=== PATIENT | female | born 1970 | race Caucasian/White ===

== ENCOUNTER 2020-02-08 17:45 | Emergency (ER) | payer OTHER, SELFPAY ==
[2020-02-08 17:56] VITALS: BP 152/81; PULSE 77; RESP 16; TEMP 37; O2SAT 99
--- NOTE | 2020-02-08 18:23 | ED.GENADULT ---
HPI - General Adult General Chief complaint: Upper Respiratory Infection Stated complaint: sore throat/cough/sinus/difficulty breathing/fever Time Seen by Provider: 02/08/20 18:23 Source: patient and RN notes reviewed Mode of arrival: ambulatory Limitations: no limitations History of Present Illness HPI narrative: 49-year-old female presents with complains of upper respiratory infection symptoms, fever, fatigue, sore throat, and dry cough for the past 2 days. Ibuprofen (800 mg last this morning at 9 AM) and cough drops without relief. History of asthma. Constant dry cough. Rhinorrhea and nasal congestion. Sore throat bilateral. Hurts to swallow. No voice change. High fevers, highest 102.1 Fahrenheit, orally with intermittent chills and sweats. No drooling, neck or throat swelling. No chest pain, wheezing, or shortness of breath. Exacerbation factors consist of smoke exposure. Denies nausea, vomiting, and abdominal pain. Tolerating liquids well. Madhavi denies being , postmenopausal for 2 years. Some parts of this dictation were generated by voice recognition software and may contain typographical and/or grammatical inaccuracies. Related Data Home Medications Medication Instructions Recorded Confirmed gabapentin 300 mg PO DAILY 12/13/19 12/13/19 insulin glargine [Basaglar KwikPen unit SUBCUT 12/13/19 U-100 Insulin] losartan 50 mg PO DAILY 12/13/19 12/13/19 metformin 1,000 mg PO BID 12/13/19 12/13/19 pen needle, diabetic [BD 12/13/19 12/13/19 Ultra-Fine Evelyn Pen Needle] tizanidine 4 mg PO DAILY 12/13/19 12/13/19 Allergies Allergy/AdvReac Type Severity Reaction Status Date / Time No Known Allergies Allergy Unknown Verified 12/23/19 12:00 Review of Systems Review of Systems: Narrative: CONSTITUTIONAL: Complains of fever, chills, sweats. EYES: Denies visual changes, redness, discharge. ENT: Complains of rhinorrhea, congestion, sore throat. Denies otalgia. CARDIOVASCULAR: Denies chest pain, palpitations, edema. RESPIRATORY: Denies dyspnea, wheezing. Complains of dry cough. GASTROINTESTINAL: Denies abdominal pain, nausea, vomiting, diarrhea. GENITOURINARY: Denies dysuria, hematuria, abnormal discharge. SKIN: Denies rash or itching. MUSCULOSKELETAL: Denies acute back pain, joint pain. Complains of myalgia. NEUROLOGIC: Denies numbness or focal weakness. PSYCHIATRIC: Denies anxiety or depression. All systems reviewed & are unremarkable except as noted in HPI and below. FORMERLY [facility] Past Medical History Medical History (Updated 02/09/20 @ 00:01 by Xiomara Taylor) Asthma delivery delivered Diabetes High cholesterol Hypertension Surgical History Surgical History (Updated 02/08/20 @ 18:37 by MARC Richardson) H/O section History of tonsillectomy Family History Family History (Updated 02/08/20 @ 18:38 by MARC Richardson) Mother Heart disease Diabetes mellitus Sibling Diabetes mellitus Social History Social History Gender identity (if verbalized by the patient): Female Comments At time of signature, agree with nurse past medical, surgical, social, and family history. There is no relevant family history pertinent to the presenting complaint. Exam Narrative: Exam Narrative: GENERAL: This is a well-nourished, well-developed patient, in no apparent distress. Talks in full sentences and ambulates with steady gait without dyspnea. HEAD: normocephalic, atraumatic. EYES: PERRL. Sclera clear/white. Vision is grossly intact. EARS: External ears normal, auditory canals clear and without drainage, TMs normal without perforation. Hearing grossly intact. NOSE: External nose normal with no obvious nasal discharge, nares with mild redness and enlarged turbinates, clear rhinorrhea. THROAT: Mucous membranes moist, posterior pharynx clear. PND, mild erythema, no tonsils. No drainage. No drooling, trismus, or
== END 2020-02-08 18:51 | disposition home or self-care (01) ==
PROVIDERS: Emergency Provider Nurse Practitioner Family
DX: J02.9 Acute pharyngitis, unspecified (principal); J45.909 Unspecified asthma, uncomplicated; E11.9 Type 2 diabetes mellitus without complications; E78.00 Pure hypercholesterolemia, unspecified; I10 Essential (primary) hypertension
CPT/HCPCS: 87081; 87880; 99213; G0463

== ENCOUNTER 2020-03-08 16:33 | Emergency (ER) | payer OTHER, SELFPAY ==
[2020-03-08 16:50] VITALS: BP 130/77; PULSE 71; RESP 18; TEMP 37.1; O2SAT 99
--- NOTE | 2020-03-08 17:33 | ED.EAR ---
HPI - Ear Problem General Chief complaint: Ear Stated complaint: ear/jaw pain History of Present Illness HPI Narrative: Patient is a 49-year-old female presents to urgent care via POV for an evaluation of left ear pain that began yesterday. Additionally, she reports intermittent dizziness and clogged ears. No relief with ibuprofen. Nothing improves pain pain worsens with eating and opening and closing mouth. History of ear infections. Patient is unable to provide details about previous ear infections stating, I do not know I just given drops . Pertinent negatives fever, chills, sweats, change in appetite, poor p.o. intake, malaise, headache, rhinorrhea, sinus problems, tinnitus, vertigo, lightheadedness, hearing loss, muffled hearing, ear drainage, nausea, vomiting, sore throat, cough, shortness of breath, lymphadenopathy, chest pain, heart palpitations, and heart murmur. Related Data Home Medications Medication Instructions Recorded Confirmed pen needle, diabetic [BD 12/13/19 12/13/19 Ultra-Fine Evelyn Pen Needle] Unknown Htn Medication 03/08/20 metformin 03/08/20 Allergies Allergy/AdvReac Type Severity Reaction Status Date / Time No Known Allergies Allergy Unknown Verified 12/23/19 12:00 Review of Systems Review of Systems: Narrative: All other systems reviewed and are negative PMFSH Past Medical History Medical History Asthma delivery delivered Diabetes High cholesterol Hypertension Surgical History Surgical History H/O section History of tonsillectomy Family History Family History Mother Heart disease Diabetes mellitus Sibling Diabetes mellitus Social History Social History Gender identity (if verbalized by the patient): Female Comments I have reviewed and agree with the patient's past medical, surgical, social, and family hx as documented by the RN. There is no relevant family history pertinent to the presenting complaint. Exam Narrative: Exam Narrative: GENERAL: Well-appearing, well-nourished, and in no acute distress. HEAD: Normocephalic, atraumatic. No sinus tenderness or facial swelling appreciated. EYES: PERRLA and EOMI. No evidence of erythema, swelling, or drainage. ENT: Bilateral external ears. Left ear canal with moderate erythema and mild swelling. Right ear canal normal. Moderate pain elicited to right ear with pulling pinna and tragus palpation. bilateral TMs are normal.No TM perforation. Nares clear, no rhinorrhea or epistaxis. Bilateral turbinates without erythema/ swelling. Mucous membranes moist and pink. Uvula is midline without erythema and swelling. No evidence of petechial rash, cobblestoning, lesions, ulcers, erythema, swelling, exudates, peritonsillar abscess, tenting, or drooling. Breath odor and voice normal. NECK: Supple. No Lymphadenopathy or nuchal rigidity appreciated. CHEST: Bilateral lung myers are clear to auscultation. No respiratory distress. No evidence of cough or pleuritic cp upon examination. HEART: Regular rate and rhythm. No murmur, gallop, or rub heard. EXTREMITIES: Normal range of motion. No edema. SKIN: Warm, dry, no rash. NEURO: No focal deficits. Alert and oriented x3. Course Vital Signs Vital signs: Vital Signs Temperature 98.8 F 03/08/20 16:50 Pulse Rate 71 03/08/20 16:50 Respiratory Rate 18 03/08/20 16:50 Blood Pressure 130/77 03/08/20 16:50 Pulse Oximetry 99 03/08/20 16:50 Temperature 98.8 F 03/08/20 16:50 Pulse Rate 71 03/08/20 16:50 Respiratory Rate 18 03/08/20 16:50 Blood Pressure 130/77 03/08/20 16:50 Pulse Oximetry 99 03/08/20 16:50 Medical Decision Making Differential Diagnosis Differential Diagnosis: Allergic rhi
== END 2020-03-08 17:50 | disposition home or self-care (01) ==
PROVIDERS: Emergency Provider Nurse Practitioner Family
DX: H60.502 Unspecified acute noninfective otitis externa, left ear (principal); J45.909 Unspecified asthma, uncomplicated; E11.9 Type 2 diabetes mellitus without complications; E78.00 Pure hypercholesterolemia, unspecified; I10 Essential (primary) hypertension
CPT/HCPCS: 99213; G0463

== ENCOUNTER 2020-03-13 19:54 | Emergency (ER) | payer OTHER, SELFPAY ==
--- NOTE | ~2020-03-13 | CT_ITS ---
EXAMINATION: CT brain wo con EXAM DATE: 03/13/2020 22:13 INDICATION: Headaches. TECHNIQUE: Spiral CT of the head was performed without contrast. Axial, coronal and sagittal images were reviewed. The dose-length product (DLP) for this examination was 605.33 mGy-cm. The exposure w as tailored according to patient size, and iterative reconstruction (ASIR) was used as additional dos e reduction technique. There is no prior study for comparison. FINDINGS: There is no acute intraparenchymal hemorrhage. No evidence of intraparenchymal brain mass lesion. No evidence of acute infarction. There is no mass effect or midline shift. The ventricles are normal in size. There are no extra-axial collections. There are no acute calvarial fractures. T he orbits are unremarkable. Soft tissue is unremarkable. The visualized sinuses and mastoid air lew ls are well aerated. IMPRESSION: 1. No acute intracranial findings. Reviewed, dictated and finalized at location A.
--- NOTE | ~2020-03-13 | XR_ITS ---
EXAMINATION: XR chest 1V portable EXAM DATE: 03/13/2020 20:40 INDICATION: Cough, fever, headache, body ache. TECHNIQUE: Portable AP frontal chest x-ray was obtained. Comparison is made to prior examination from 02/22/2019. FINDINGS: The lungs are clear. There are no pleural effusions. Cardiomediastinal silhouette is norm al. There is no pneumothorax suspected. The bones and soft tissues are unremarkable. IMPRESSION: No acute cardiopulmonary findings. Reviewed, dictated and finalized at location A.
[2020-03-13 20:01] VITALS: PULSE 68; RESP 20; TEMP 37.1; O2SAT 100
--- NOTE | 2020-03-13 20:19 | ECG_ITS ---
Measurements Intervals [place] Rate: 60 P: 10 SD: 157 QRS: -17 QRSD: 89 T: 0 QT: 397 QTc: 399 Interpretive Statements SINUS RHYTHM CONSIDER ANTEROSEPTAL INFARCT, AGE INDETERMINATE INFERIOR INFARCT, AGE INDETERMINATE ABNORMAL ECG Electronically Signed On 03-14-2020 7:14:45 CDT by Satya Mccrary D.O.
[2020-03-13] MEDS: SODIUM CHLORIDE 0.9% IV 1,000 ML 999 ML IV CONT ×2 (20:29→21:46)
[2020-03-13] MEDS: METOCLOPRAMIDE HCL INJ 10 MG/2 ML VIAL IV PUSH (20:30)
[2020-03-13 20:31] LABS: Basophils Percent Auto 0.7 % (0.2-1.2); Eosinophils Absolute Auto 0.1 K/mm3 (0-0.3); Eosinophils Percent Auto 1.9 % (0-4.4); Hematocrit 46.2 % (37.0-47.0); Hemoglobin 15.6 g/dL (12.0-15.0); Immature Granulocyte Absolute 0.02 K/mm3 (0.00-0.031); Immature Granulocyte Percent A 0.4 % (0-0.5); Lymphocytes Absolute Auto 2.45 K/mm3 (0.9-3.2); Lymphocytes Percent Auto 42.9 % (18.3-44.2); Mean Corpuscular HGB Conc 33.8 g/dl (32-36); Mean Corpuscular Hemoglobin 29.7 pg (26-34); Mean Platelet Volume 11.4 fl (7.4-10.4); Monocytes Absolute Auto 0.5 K/mm3 (0.1-0.6); Monocytes Percent Auto 8.6 % (2.6-8.5); Neutrophils Absolute Auto 2.6 K/mm3 (1.3-6.7); Neutrophils Percent Auto 45.5 % (45.5-73.1); Platelet Count Result 209 k/mm3 (150-375); Red Blood Count 5.25 M/mm3 (4.2-5.4); Red Cell Distribution Width 12.5 % (11.5-14.5); White Blood Count 5.7 K/mm3 (4.5-10.0)
[2020-03-13 20:36] LABS: Add Urine Microscopic? YES; Appearance Urine Clear (Clear); Bilirubin Urine Negative (Negative); Blood Urine Negative (Negative); Color Urine Straw (Yellow); Glucose Urine UA 3+ mg/dL (Negative); Ketones Urine Negative (Negative); Leukocyte Esterase Ur Negative LEU/UL (Negative); Mucus Urine Rare /lpf; Nitrate Urine Negative (Negative); Protein Urine Negative (Negative); Squamous Epithelial Cell Urine Occasional /hpf (Few); Urobilinogen Urine Negative mg/dL (<2.0); WBC Urine 0-3 /hpf
[2020-03-13 20:37] LABS: Specific Grav Ur 1.037 (1.001-1.035)
--- NOTE | 2020-03-13 20:42 | ED.GENADULT ---
HPI - General Adult General Chief complaint: Ear Stated complaint: fever,mccarty,cough,n/v,body aches Time Seen by Provider: 03/13/20 19:59 Source: patient Mode of arrival: ambulatory Limitations: no limitations History of Present Illness HPI narrative: 49 yo female with h/o migraine, hypertension, DM who presents with multiple complaints. PAtient reports she has had bilateral frontal headache for 1 week. She thinks it is due to left ear infection that she has been using prescribed antibiotic ear drops to treat. She also reports sore throat, congestion, productive cough with clear phlegm for past couple days. She states she had fever yesterday of 101 but she denies fever today. She reports nausea and vomiting yesterday. She denies vomiting or diarrhea today. She also reports chronic lower back pain. She denies contact with any one with covid or flu. . Onset (ago): week(s) Location: head and back Associated symptoms: chest pain, cough, fever/chills, headaches and nausea/vomiting Treatments prior to arrival: NSAID Related Data Home Medications Medication Instructions Recorded Confirmed pen needle, diabetic [BD 12/13/19 12/13/19 Ultra-Fine Evelyn Pen Needle] Unknown Htn Medication 03/08/20 metformin 1,000 mg PO BID 03/08/20 amitriptyline 25 mg PO DAILY 03/13/20 Allergies Allergy/AdvReac Type Severity Reaction Status Date / Time No Known Allergies Allergy Unknown Verified 03/13/20 20:12 Review of Systems Review of Systems: All systems reviewed & are unremarkable except as noted in HPI and below Constitutional: Constitutional: Reports chills and Reports fever(s) ENT: Reports otalgia, Reports headache(s), Reports nasal congestion and Reports sore throat Cardiovascular: Cardiovascular: Reports chest pain and Denies radiating jaw, neck or arm pain Respiratory: Respiratory: Reports cough, Denies dyspnea and Denies wheezing Gastrointestinal: Gastrointestinal: Reports diarrhea, Reports nausea and Reports vomiting Genitourinary: Genitourinary: Denies nocturia, Denies dysuria and Denies flank pain Musculoskeletal: Musculoskeletal: Reports back pain Neurologic: Denies focal weakness PMF Past Medical History Medical History Asthma delivery delivered Diabetes High cholesterol Hypertension Surgical History Surgical History H/O section History of tonsillectomy Social History Social History Gender identity (if verbalized by the patient): Female Exam Const: General: no acute distress and alert Orientation/consciousness: patient oriented x3 HENMT: Head: normocephalic and atraumatic Ears: TM's normal bilaterally and external ear abnormal (no canal swelling or redness) pain with movement of external ear on the left General nose exam: Normal external nose present, Normal nares present and No nasal polyps present Face and sinus: normal facial exam, sinuses nontender and face symmetric Mouth: Yes Normal oral and palatal mucosa present, Yes lip normal, Yes tongue normal, Yes oropharynx normal and Yes moist mucous membranes Teeth and gingiva: dentition normal and gingiva normal Throat: posterior oropharynx normal, tonsils normal and uvula midline Eyes: Conjunctivae: conjunctivae normal Pupils: Equal, round and reactive pupils present EOM: EOMs intact bilaterally Neck: Neck: normal visual inspection Chest: Chest palpation & inspection: normal inspection of the chest Resp: Effort & Inspection: normal respiratory effort Auscultation: clear to auscultation bilaterally Cardio: Rate: regular rate Rhythm: regular rhythm Heart sounds: no murmurs GI: GI Palp: Yes Soft to palpation, No Tenderness to palpation present (GI), No Guarding due to palpation present (GI) and No Rigid due to palpation : General: Yes no
[2020-03-13 20:43] LABS: Alanine Aminotransferase 17 U/L (4-35); Albumin Level 4.3 g/dL (3.5-5.1); Alkaline Phosphatase 81 U/L (38-126); Aspartate Amino Transferase 20 U/L (14-36); Bilirubin,Total 0.3 mg/dL (0.2-1.3); Blood Urea Nitrogen 10 mg/dL (7-17); Calcium 9.7 mg/dL (8.4-10.2); Carbon Dioxide 28 mmol/L (22-30); Chloride 97 mmol/L (98-107); Estimated CRCL calculation 100 ml/min; Estimated Glomerular Filt Rate > 60; Glucose 372 mg/dL (65-105); Potassium 3.4 mmol/L (3.4-5.0); Sodium 133 mmol/L (137-145)
[2020-03-13 20:46] LABS: CRP 0.6 mg/dL (<1.0); Lipase 85 U/L (23-300)
[2020-03-13 20:55] LABS: Troponin I < 0.012 ng/mL (0.000-0.034)
[2020-03-13 21:00] VITALS: BP 147/89; PULSE 60; RESP 18; O2SAT 100
[2020-03-13] MEDS: KETOROLAC 30 MG/ML VIAL (*BKC) IV PUSH (21:47)
[2020-03-13 22:20] VITALS: BP 126/74; PULSE 63; RESP 21; O2SAT 100
[2020-03-13 23:16] VITALS: BP 118/73; PULSE 65; RESP 16; O2SAT 100
== END 2020-03-13 23:18 | disposition home or self-care (01) ==
PROVIDERS: Emergency Provider General Practice
DX: B34.9 Viral infection, unspecified (principal); G43.909 Migraine, unspecified, not intractable, without status migrainosus; J45.909 Unspecified asthma, uncomplicated; E11.9 Type 2 diabetes mellitus without complications; I10 Essential (primary) hypertension; E78.00 Pure hypercholesterolemia, unspecified; Z79.84 Long term (current) use of oral hypoglycemic drugs
CPT/HCPCS: 36415; 70450; 71045; 80053; 81001; 83690; 84484; 85025; 86140; 87081; 87804; 87880; 93005; 96361; 96374; 96375; 99284; J1200; J1885; J2765; J7030

== ENCOUNTER 2020-06-16 17:33 | Emergency (ER) | payer OTHER, SELFPAY ==
[2020-06-16 17:43] VITALS: BP 144/89; PULSE 81; RESP 16; TEMP 36.8; O2SAT 98
--- NOTE | 2020-06-16 17:57 | ED.URI ---
HPI - URI/Sore Throat General Chief Complaint: Upper Respiratory Infection Stated Complaint: Sinus Infection/sore throat Time Seen by Provider: 06/16/20 17:57 Source: patient and RN notes reviewed Mode of arrival: ambulatory Limitations: no limitations History of Present Illness HPI Narrative: This is a 50 years old female presents to the office for an evaluation of sinus congestion since yesterday. Associated with bilateral ear clogged, sore throat, neck pain, and cough. Denies fever however she felt chills and hot at times. She also reported feeling nauseated and no appetite. She took Tylenol for her headache but nothing for her sinus. She woke at [facility]; someone tested positive for COVID; therefore she got swab for it yesterday. She calls off work today because she was not feeling well. She does not smoke. Related Data Home Medications Medication Instructions Recorded Confirmed pen needle, diabetic [BD 12/13/19 12/13/19 Ultra-Fine Evelyn Pen Needle] Unknown Htn Medication 03/08/20 metformin 1,000 mg PO BID 03/08/20 amitriptyline 25 mg PO DAILY 03/13/20 apixaban [Eliquis] mg 06/16/20 cetirizine mg 06/16/20 duloxetine mg PO 06/16/20 ertugliflozin [Steglatro] mg 06/16/20 ezetimibe mg 06/16/20 gabapentin 06/16/20 losartan 06/16/20 metformin mg 06/16/20 metoclopramide HCl 06/16/20 omeprazole 06/16/20 tizanidine mg 06/16/20 Allergies Allergy/AdvReac Type Severity Reaction Status Date / Time No Known Allergies Allergy Unknown Verified 03/13/20 20:12 Review of Systems Review of Systems: Narrative: CONSTITUTIONAL: Denies fever. Reports chills and feeling hot. Reports feeling malaise/tired EYES: Denies visual changes, redness, discharge. ENT: Reports sinus congestion, sore throat, ears clogged CARDIOVASCULAR: Denies chest pain, palpitation RESPIRATORY: Denies dyspnea, wheezing. Reports a little cough GASTROINTESTINAL: Denies abdominal pain, diarrhea. Reports nausea with no appetite. GENITOURINARY: Denies urinary symptoms SKIN: Denies rash MUSCULOSKELETAL: Denies acute back pain. NEUROLOGIC: Denies lightheaded All other systems reviewed are negative, except as documented in HPI. FORMERLY [facility] Past Medical History Medical History Asthma delivery delivered Diabetes High cholesterol Hx of deep venous thrombosis Hypertension Surgical History Surgical History H/O section History of tonsillectomy Family History Family History Mother Heart disease Diabetes mellitus Sibling Diabetes mellitus Social History Social History Gender identity (if verbalized by the patient): Female Comments At time of signature, I agree with nursing past medical, surgical, social and family history. There is no relevant family history pertinent to the presenting complaint. Exam Narrative: Exam Narrative: GENERAL: This is a well-nourished, well-developed patient, in no apparent distress. EYES: Sclera clear/white. Vision is grossly intact. EARS: External ears normal, auditory canals clear and without drainage, TMs normal without perforation, fluid level noted. Hearing grossly intact. NOSE: External nose normal with no obvious nasal discharge, nares without redness, no rhinorrhea. THROAT: Mucous membranes moist, posterior pharynx clear. NECK: Neck supple, non-tender without lymphadenopathy, masses or thyromegaly. CARDIOVASCULAR: Regular rate and rhythm without murmurs, gallops, or rubs. RESPIRATORY: Clear to auscultation. Breath sounds equal bilaterally. No wheezes, rales, or rhonchi. GASTROINTESTINAL: Abdomen soft, non-tender, nondistended. Bowel sounds are active. No hepato-splenomegaly, or palpable masses. No guarding. SKIN: warm, intact with no suspicious lesions or
== END 2020-06-16 18:17 | disposition home or self-care (01) ==
PROVIDERS: Emergency Provider Nurse Practitioner
DX: J06.9 Acute upper respiratory infection, unspecified (principal); R05 Cough; J45.909 Unspecified asthma, uncomplicated; E11.9 Type 2 diabetes mellitus without complications; E78.00 Pure hypercholesterolemia, unspecified; Z86.73 Personal history of transient ischemic attack (TIA), and cerebral infarction without residual deficits; I10 Essential (primary) hypertension
CPT/HCPCS: 99213; G0463

== ENCOUNTER 2020-07-22 18:18 | Emergency (ER) | payer OTHER, SELFPAY ==
--- NOTE | ~2020-07-22 | CT_ITS ---
EXAMINATION: CT abdomen pelvis w con DATE: 07/22/2020 19:46 INDICATION: Abdominal pain, nausea and diarrhea TECHNIQUE: Computed tomography (CT) of the abdomen and pelvis was performed with 100 mL Omnipaque-350 intravenous contrast. Automated exposure control and iterative reconstruction technique were employe d. The dose-length product was 617.11 mGy-cm. COMPARISON: None FINDINGS: Lung bases are clear. Heart size is normal. No pericardial or pleural effusion. Focal hepatic steatos is at the ligamentum teres. Gallbladder, spleen, pancreas, bilateral adrenal glands and kidneys are n ormal. Bowels including the appendix are normal. Bladder, anteverted uterus and bilateral adnexa are normal. No free intraperitoneal gas or fluid. No pathologically enlarged abdominal or pelvic lymphade nopathy. Bones are unremarkable. IMPRESSION: 1. No acute intra-abdominal/pelvic process. Reviewed, dictated and finalized at location A.
--- NOTE | ~2020-07-22 | XR_ITS ---
EXAMINATION: XR chest 1V DATE: 07/22/2020 19:49 INDICATION: Right-sided chest pain radiating down the right arm TECHNIQUE: PA view of the chest was obtained. COMPARISON: Chest radiograph dated 03/13/2020 FINDINGS: Lung volumes remain small with no focal airspace opacities, pulmonary edema, pleural effusion or pneu mothorax. The cardiomediastinal silhouette is normal. Excreted contrast at the bilateral renal collec ting systems resulting from the immediately prior contrast enhanced CT of the abdomen and pelvis. IMPRESSION: 1. No acute cardiopulmonary disease. Reviewed, dictated and finalized at location A.
--- NOTE | 2020-07-22 18:24 | ECG_ITS ---
Measurements Intervals [place] Rate: 87 P: 18 NC: 166 QRS: 0 QRSD: 85 T: 10 QT: 358 QTc: 431 Interpretive Statements SINUS RHYTHM ANTERIOR INFARCT, AGE INDETERMINATE ABNORMAL ECG Electronically Signed On 07-23-2020 6:59:02 CDT by Satya Mccrary D.O.
[2020-07-22 18:30] VITALS: BP 177/93; PULSE 92; RESP 16; TEMP 37.1; O2SAT 98
[2020-07-22 18:43] LABS: Basophils Absolute Auto 0.1 K/mm3 (0.0-0.1); Basophils Percent Auto 0.8 % (0.2-1.2); Eosinophils Absolute Auto 0.1 K/mm3 (0-0.3); Eosinophils Percent Auto 2.3 % (0-4.4); Hematocrit 45.6 % (37.0-47.0); Hemoglobin 15.4 g/dL (12.0-15.0); Immature Granulocyte Absolute 0.01 K/mm3 (0.00-0.031); Immature Granulocyte Percent A 0.2 % (0-0.5); Lymphocytes Absolute Auto 2.12 K/mm3 (0.9-3.2); Mean Corpuscular HGB Conc 33.8 g/dl (32-36); Mean Corpuscular Volume 85.9 fl (80-100); Mean Platelet Volume 11.1 fl (7.4-10.4); Monocytes Absolute Auto 0.4 K/mm3 (0.1-0.6); Monocytes Percent Auto 7.1 % (2.6-8.5); Neutrophils Absolute Auto 3.3 K/mm3 (1.3-6.7); Neutrophils Percent Auto 54.6 % (45.5-73.1); Platelet Count Result 209 k/mm3 (150-375); Red Blood Count 5.31 M/mm3 (4.2-5.4); Red Cell Distribution Width 12.3 % (11.5-14.5); White Blood Count 6.1 K/mm3 (4.5-10.0)
[2020-07-22 18:44] LABS: Add Urine Microscopic? YES; Appearance Urine Clear (Clear); Bilirubin Urine Negative (Negative); Blood Urine Negative (Negative); Color Urine Straw (Yellow); Glucose Urine UA 3+ mg/dL (Negative); Ketones Urine Negative (Negative); Leukocyte Esterase Ur Negative LEU/UL (Negative); Mucus Urine Rare /lpf; Nitrate Urine Negative (Negative); Protein Urine Negative (Negative); Squamous Epithelial Cell Urine Rare /hpf (Few); Urobilinogen Urine Negative mg/dL (<2.0)
[2020-07-22 18:51] LABS: Specific Grav Ur 1.035 (1.001-1.035)
[2020-07-22 18:54] LABS: Alanine Aminotransferase 25 U/L (4-35); Alkaline Phosphatase 86 U/L (38-126); Anion Gap 7 mmol/L (8-16); Aspartate Amino Transferase 27 U/L (14-36); Bilirubin,Total 0.4 mg/dL (0.2-1.3); Blood Urea Nitrogen 10 mg/dL (7-17); Carbon Dioxide 26 mmol/L (22-30); Chloride 101 mmol/L (98-107); Estimated CRCL calculation 88 ml/min; Estimated Glomerular Filt Rate > 60; Glucose 440 mg/dL (65-105); Lipase 49 U/L (23-300); Potassium 3.5 mmol/L (3.4-5.0); Sodium 134 mmol/L (137-145)
[2020-07-22 19:02] LABS: D Dimer 0.34 ug/mL (<0.48)
[2020-07-22 19:06] LABS: Troponin I < 0.012 ng/mL (0.000-0.034)
--- NOTE | 2020-07-22 19:12 | ED.GENADULT ---
HPI - General Adult General Chief complaint: Abdominal Pain Stated complaint: abd pain, diarrhea Time Seen by Provider: 07/22/20 18:31 Source: patient History of Present Illness HPI narrative: Patient is a 50 y/o female complaining of cramping right lower abdominal pain for 1 week. She describes her pain as 8/10 with no radiation. She has no vomiting, but some diarrhea. There is no alleviating or exacerbating factor. She also has some sharp right upper chest pain starting today. Related Data Home Medications Medication Instructions Recorded Confirmed pen needle, diabetic [BD 12/13/19 12/13/19 Ultra-Fine Evelyn Pen Needle] Unknown Htn Medication 03/08/20 metformin 1,000 mg PO BID 03/08/20 amitriptyline 25 mg PO DAILY 03/13/20 apixaban [Eliquis] mg 06/16/20 cetirizine mg 06/16/20 duloxetine mg PO 06/16/20 ertugliflozin [Steglatro] mg 06/16/20 ezetimibe mg 06/16/20 gabapentin 06/16/20 losartan 06/16/20 metformin mg 06/16/20 metoclopramide HCl 06/16/20 omeprazole 06/16/20 tizanidine mg 06/16/20 Allergies Allergy/AdvReac Type Severity Reaction Status Date / Time No Known Allergies Allergy Unknown Verified 03/13/20 20:12 Review of Systems Constitutional: Constitutional: Denies chills, Denies fever(s), Denies headache(s) and Denies weakness Eyes: Eyes: Denies blurry vision ENT: Denies headache(s) and Denies neck pain Cardiovascular: Cardiovascular: Reports chest pain and Denies dyspnea Respiratory: Respiratory: Denies cough and Denies dyspnea Gastrointestinal: Gastrointestinal: Reports abdominal pain, Reports diarrhea, Reports nausea and Denies vomiting Genitourinary: Genitourinary: Denies hematuria and Denies dysuria Musculoskeletal: Musculoskeletal: Denies back pain and Denies neck pain Neurologic: Denies headache(s) and Denies weakness PMFSH Past Medical History Medical History Asthma delivery delivered Diabetes High cholesterol Hx of deep venous thrombosis Hypertension Surgical History Surgical History H/O section History of tonsillectomy Family History Family History Mother Heart disease Diabetes mellitus Sibling Diabetes mellitus Social History Social History Gender identity (if verbalized by the patient): Female Exam Const: General: no acute distress and well developed Orientation/consciousness: oriented to person, oriented to place, oriented to time and patient oriented x3 HENMT: Head: normocephalic Ears: external ears normal General nose exam: Normal external nose present Eyes: General: appearance normal, both eyes and all related structures Conjunctivae: conjunctivae normal Neck: Neck: normal visual inspection and full ROM Chest: Chest palpation & inspection: normal inspection of the chest and no tenderness Resp: Effort & Inspection: normal respiratory effort Auscultation: clear to auscultation bilaterally Cardio: Rate: regular rate Rhythm: regular rhythm GI: GI Palp: No abdominal tenderness and Yes Soft to palpation Skin: General skin exam: normal color and turgor normal Neuro: General: oriented to person, oriented to place, oriented to time and patient oriented x3 Cognition (Neuro): normal cognition Extrem: General: normal to inspection, full ROM and no pedal edema Psych: Appearance: grossly normal Mental Status: mental status grossly normal Affect: normal affect Course Vital Signs Vital signs: Vital Signs Temperature 37.1 C 07/22/20 18:30 Pulse Rate 92 07/22/20 18:30 Respiratory Rate 16 07/22/20 18:30 Blood Pressure 177/93 H 07/22/20 18:30 Pulse Oximetry 98 07/22/20 18:30 Temperature 37.1 C 07/22/20 18:30 Pulse Rate 74 07/22/20 21:33 Respiratory Rate 18 07/22/20 21:33 Blo
[2020-07-22 20:41] VITALS: BP 127/68; PULSE 71; RESP 18; O2SAT 100
[2020-07-22] MEDS: INSULIN HUMAN REGULAR (*BKC) 100 UNITS/ML 8 UNITS IV PUSH (20:59)
[2020-07-22 21:33] VITALS: BP 118/82; PULSE 74; RESP 18; O2SAT 98
[2020-07-22 21:45] LABS: Glucose Point of Care 337 (65-105)
[2020-07-22 22:02] LABS: Troponin I < 0.012 ng/mL (0.000-0.034)
[2020-07-22 22:10] VITALS: BP 122/79; PULSE 74; RESP 18; O2SAT 98
== END 2020-07-22 22:12 | disposition home or self-care (01) ==
PROVIDERS: Emergency Medicine; Emergency Provider Emergency Medicine
DX: R10.31 Right lower quadrant pain (principal); R07.9 Chest pain, unspecified; J45.909 Unspecified asthma, uncomplicated; E11.9 Type 2 diabetes mellitus without complications; E78.00 Pure hypercholesterolemia, unspecified; Z86.718 Personal history of other venous thrombosis and embolism; I10 Essential (primary) hypertension; Z79.01 Long term (current) use of anticoagulants; Z79.84 Long term (current) use of oral hypoglycemic drugs; R94.31 Abnormal electrocardiogram [ECG] [EKG]
CPT/HCPCS: 36415; 71045; 74177; 80053; 81001; 81025; 83690; 84484; 85025; 85380; 93005; 96374; 99284; J1815; Q9967

== ENCOUNTER 2020-11-28 17:42 | Emergency (ER) | payer OTHER, SELFPAY ==
--- NOTE | ~2020-11-28 | XR_ITS ---
EXAMINATION: XR chest 1V portable INDICATION: Shortness of breath and cough, COVID 19 positive TECHNIQUE: Portable AP chest at 1821 hours COMPARISON: 07/22/2020 FINDINGS: Diffuse interstitial and airspace opacities are present. There is no pleural effusion or pn eumothorax. The cardiomediastinal silhouette is normal. The visualized osseous structures are unremar kable. IMPRESSION: 1. Diffuse lung disease, consistent with pneumonia and/or pulmonary edema. Reviewed, dictated and finalized at location A. GENCY DEPARTMENT MANAGER
--- NOTE | 2020-11-28 17:46 | ECG_ITS ---
Measurements Intervals [place] Rate: 96 P: 0 SD: 149 QRS: -23 QRSD: 91 T: 7 QT: 351 QTc: 443 Interpretive Statements SINUS RHYTHM ANTEROSEPTAL INFARCT, AGE INDETERMINATE INFERIOR INFARCT, AGE INDETERMINATE BASELINE ARTIFACT- I, II, AVR, AVL ABNORMAL ECG Electronically Signed On 11-29-2020 8:47:01 [employer] by Satya Mccrary D.O.
[2020-11-28 17:50] VITALS: BP 162/109; PULSE 98; RESP 17; TEMP 37.2; O2SAT 99
[2020-11-28 17:54] VITALS: PULSE 98
[2020-11-28 17:58] LABS: Basophils Percent Auto 0.3 % (0.2-1.2); Eosinophils Percent Auto 0.1 % (0-4.4); Hematocrit 45.1 % (37.0-47.0); Hemoglobin 15.5 g/dL (12.0-15.0); Immature Granulocyte Absolute 0.04 K/mm3 (0.00-0.031); Immature Granulocyte Percent A 0.3 % (0-0.5); Lymphocytes Absolute Auto 1.99 K/mm3 (0.9-3.2); Mean Corpuscular HGB Conc 34.4 g/dl (32-36); Mean Corpuscular Hemoglobin 29.9 pg (26-34); Mean Corpuscular Volume 87.1 fl (80-100); Mean Platelet Volume 11.6 fl (7.4-10.4); Monocytes Absolute Auto 0.6 K/mm3 (0.1-0.6); Monocytes Percent Auto 5.4 % (2.6-8.5); Neutrophils Percent Auto 76.9 % (45.5-73.1); Platelet Count Result 188 k/mm3 (150-375); Red Blood Count 5.18 M/mm3 (4.2-5.4); Red Cell Distribution Width 12.2 % (11.5-14.5); White Blood Count 11.7 K/mm3 (4.5-10.0)
[2020-11-28 18:09] LABS: Anion Gap 12 mmol/L (8-16); Blood Urea Nitrogen 11 mg/dL (7-17); Calcium 9.1 mg/dL (8.4-10.2); Carbon Dioxide 26 mmol/L (22-30); Chloride 93 mmol/L (98-107); Estimated CRCL calculation 87 ml/min; Estimated Glomerular Filt Rate > 60; Glucose 363 mg/dL (65-105); Potassium 3.3 mmol/L (3.4-5.0); Sodium 131 mmol/L (137-145)
[2020-11-28 18:12] VITALS: BP 144/90; PULSE 91; RESP 18; O2SAT 98
[2020-11-28 18:50] VITALS: BP 124/79; PULSE 87; RESP 16; O2SAT 99
[2020-11-28] MEDS: SODIUM CHLORIDE 0.9% IV 1,000 ML 999 ML IV CONT (18:50)
[2020-11-28] MEDS: ONDANSETRON INJ 4 MG/2 ML VIAL IV PUSH (18:50)
[2020-11-28] MEDS: KETOROLAC 30 MG/ML VIAL (*BKC) IV PUSH (19:19)
[2020-11-28 19:21] VITALS: BP 143/81; PULSE 89; RESP 18; O2SAT 100
--- NOTE | 2020-11-28 20:23 | ED.GENADULT ---
HPI - General Adult General Chief complaint: Shortness of Breath/Dyspnea Stated complaint: SOB, COVID + Time Seen by Provider: 11/28/20 17:47 History of Present Illness HPI narrative: Patient is a 50-year-old female who presents the ER with cough/shortness of breath. 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 She began to feel symptoms 2 days later that is when she found out her Covid test was positive. She has been at home since then. Reports frequent coughing that causes chest discomfort and abdominal discomfort. Mild nausea but no vomiting. Shortness of breath worse with movement better at rest and worsened by her cough as well. No alleviating factors. Related Data Home Medications Medication Instructions Recorded Confirmed pen needle, diabetic [BD 12/13/19 12/13/19 Ultra-Fine Evelyn Pen Needle] Unknown Htn Medication 03/08/20 metformin 1,000 mg PO BID 03/08/20 amitriptyline 25 mg PO DAILY 03/13/20 apixaban [Eliquis] mg 06/16/20 cetirizine mg 06/16/20 duloxetine mg PO 06/16/20 ertugliflozin [Steglatro] mg 06/16/20 ezetimibe mg 06/16/20 gabapentin 06/16/20 losartan 06/16/20 metformin mg 06/16/20 metoclopramide HCl 06/16/20 omeprazole 06/16/20 tizanidine mg 06/16/20 Allergies Allergy/AdvReac Type Severity Reaction Status Date / Time No Known Allergies Allergy Unknown Verified 11/28/20 17:55 Review of Systems Review of Systems: All systems reviewed & are unremarkable except as noted in HPI and below Constitutional: Constitutional: Denies chills, Reports fever(s) and Denies weakness ENT: Denies nasal congestion and Denies sore throat Cardiovascular: Cardiovascular: Reports chest pain, Denies rapid heart rate and Denies radiating jaw, neck or arm pain Respiratory: Respiratory: Denies chest congestion, Reports cough, Reports dyspnea and Denies wheezing Gastrointestinal: Gastrointestinal: Reports abdominal pain, Reports nausea and Denies vomiting Genitourinary: Genitourinary: Denies nocturia and Denies dysuria [facility] Past Medical History Medical History (Updated 11/28/20 @ 20:54 by Reinier Phan MD) Asthma delivery delivered Diabetes High cholesterol Hx of deep venous thrombosis Hypertension Surgical History Surgical History H/O section History of tonsillectomy Family History Family History Mother Heart disease Diabetes mellitus Sibling Diabetes mellitus Social History Social History Gender identity (if verbalized by the patient): Female Exam Narrative: Exam Narrative: GENERAL: Well-appearing, well-nourished, and in no acute distress. HEAD: Normocephalic, atraumatic. CHEST: Clear to auscultation. No respiratory distress. HEART: Regular rate and rhythm. Normal peripheral pulses. ABDOMEN: Soft, nontender, nondistended. EXTREMITIES: Normal range of motion. No edema. SKIN: Warm, dry, no rash. NEURO: Alert and oriented x3. PSYCH: Normal mood and affect. Course Course Emergency Course: Patient informed of results. Covid pneumonia on chest x-ray, due to viral nature not indicated. Will send home with albuterol inhaler. No hypoxia here. Chest wall pain improved with Toradol. Vital Signs Vital signs: Vital Signs Temperature 99 F 11/28/20 17:50 Pulse Rate 98 11/28/20 17:50 Respiratory Rate 17 11/28/20 17:50 Blood Pressure 162/109 H 11/28/20 17:50 Pulse Oximetry 99 11/28/20 17:50 Temperature 99 F 11/28/20 17:50 Pulse Rate 89 11/28/20 19:21 Respiratory Rate 18 11/28/20 19:21 Blood Pressure 143/81 H 11/28/20 19:21 Pulse Oximetry 100 11/28/20 19:21 Medical Decision Making Vital Signs Vital Signs: Vital Signs Temperature 99 F 11/28/20 17:50 Pulse Rate 98 11/28/20 17:50 Respiratory Rate 17 11/28/20 1
--- NOTE | 2020-11-28 20:32 | ED.SOB ---
HPI - SOB/Dyspnea General Chief Complaint: Shortness of Breath/Dyspnea Stated Complaint: SOB, COVID + Time Seen by Provider: 11/28/20 17:47 Related Data Home Medications Medication Instructions Recorded Confirmed pen needle, diabetic [BD 12/13/19 12/13/19 Ultra-Fine Evelyn Pen Needle] Unknown Htn Medication 03/08/20 metformin 1,000 mg PO BID 03/08/20 amitriptyline 25 mg PO DAILY 03/13/20 apixaban [Eliquis] mg 06/16/20 cetirizine mg 06/16/20 duloxetine mg PO 06/16/20 ertugliflozin [Steglatro] mg 06/16/20 ezetimibe mg 06/16/20 gabapentin 06/16/20 losartan 06/16/20 metformin mg 06/16/20 metoclopramide HCl 06/16/20 omeprazole 06/16/20 tizanidine mg 06/16/20 Allergies Allergy/AdvReac Type Severity Reaction Status Date / Time No Known Allergies Allergy Unknown Verified 11/28/20 17:55 [facility] Past Medical History Medical History (Updated 07/23/20 @ 00:00 by [facility]) Asthma delivery delivered Diabetes High cholesterol Hx of deep venous thrombosis Hypertension Surgical History Surgical History H/O section History of tonsillectomy Family History Family History Mother Heart disease Diabetes mellitus Sibling Diabetes mellitus Social History Social History Gender identity (if verbalized by the patient): Female Course Vital Signs Vital signs: Vital Signs Temperature 99 F 11/28/20 17:50 Pulse Rate 98 11/28/20 17:50 Respiratory Rate 17 11/28/20 17:50 Blood Pressure 162/109 H 11/28/20 17:50 Pulse Oximetry 99 11/28/20 17:50 Temperature 99 F 11/28/20 17:50 Pulse Rate 89 11/28/20 19:21 Respiratory Rate 18 11/28/20 19:21 Blood Pressure 143/81 H 11/28/20 19:21 Pulse Oximetry 100 11/28/20 19:21 MDM - SOB/Dyspnea Lab Data Result diagrams: 11/28/20 17:52 11/28/20 17:52 Labs: Lab Results 11/28/20 11/28/20 Range/Units 17:52 17:52 WBC 11.7 H (4.5-10.0) K/mm3 RBC 5.18 (4.2-5.4) M/mm3 Hgb 15.5 H (12.0-15.0) g/dL Hct 45.1 (37.0-47.0) % MCV 87.1 (80-100) fl MCH 29.9 (26-34) pg MCHC 34.4 (32-36) g/dl RDW 12.2 (11.5-14.5) % Plt Count 188 (150-375) k/mm3 MPV 11.6 H (7.4-10.4) fl Immature Gran % (Auto) 0.3 (0-0.5) % Neut % (Auto) 76.9 H (45.5-73.1) % Lymph % (Auto) 17.0 L (18.3-44.2) % Crosby % (Auto) 5.4 (2.6-8.5) % Eos % (Auto) 0.1 (0-4.4) % Baso % (Auto) 0.3 (0.2-1.2) % Lymph # (Auto) 1.99 (0.9-3.2) K/mm3 Crosby # (Auto) 0.6 (0.1-0.6) K/mm3 Eos # (Auto) 0.0 (0-0.3) K/mm3 Baso # (Auto) 0.0 (0.0-0.1) K/mm3 Abs Immat Gran (auto) 0.04 H (0.00-0.031) K/mm3 Absolute Neuts (auto) 9.0 H (1.3-6.7) K/mm3 Absolute Nucleated RBC 0.0 (0.0-0.012) K/mm3 Nucleated RBC % 0.0 (0.0-0.2) % Sodium 131 L (137-145) mmol/L Potassium 3.3 L (3.4-5.0) mmol/L Chloride 93 L (98-107) mmol/L Carbon Dioxide 26 (22-30) mmol/L Anion Gap 12 (8-16) mmol/L BUN 11 (7-17) mg/dL Creatinine 0.60 L (0.7-1.0) mg/dL Estim Creat Clear Calc 87 ml/min Estimated GFR > 60 (59 - ) Glucose 363 H (65-105) mg/dL Calcium 9.1 (8.4-10.2) mg/dL Discharge Plan Discharge Prescriptions: No Action (DME) pen needle, diabetic [BD Ultra-Fine Evelyn Pen Needle] 32 gauge x 5/32 needle MISCELLANEOUS RF: 0 Unknown Htn Medication RF: 0 metformin 1,000 mg PO BID RF: 0 Ciprodex 0.3-0.1 % drops,suspension 4 drop LEFTEAR Q12H 7 Days Qty: 7.5 RF: 0 losartan 50 mg tablet RF: 0 cetirizine 10 mg tablet RF: 0 tizanidine 4 mg tablet RF: 0 metoclopramide HCl 5 mg tablet RF: 0 metformin 1,000 mg tablet RF: 0 gabapentin 300 mg capsule RF: 0 omeprazole 20 mg capsule,de
[2020-11-28 20:59] VITALS: BP 109/94; PULSE 79; RESP 19; O2SAT 95
== END 2020-11-28 21:05 | disposition home or self-care (01) ==
PROVIDERS: Emergency Provider Emergency Medicine; PCP Physician Assistant
DX: U07.1 COVID-19 (principal); J12.89 Other viral pneumonia; J45.909 Unspecified asthma, uncomplicated; E11.9 Type 2 diabetes mellitus without complications; I10 Essential (primary) hypertension; E78.5 Hyperlipidemia, unspecified; Z79.84 Long term (current) use of oral hypoglycemic drugs
CPT/HCPCS: 36415; 71045; 80048; 85025; 93005; 96374; 96375; 99284; J1885; J2405; J7030

== ENCOUNTER 2020-11-29 19:54 | Emergency (ER) | payer OTHER, SELFPAY ==
--- NOTE | ~2020-11-29 | CT_ITS ---
EXAMINATION: CT abdomen pelvis w con INDICATION: Abdominal pain and diarrhea, COVID 19 positive TECHNIQUE: Computed tomographic images of the abdomen and pelvis were obtained after the administrati on of 100 cc of Omnipaque 350 intravenous contrast. The dose-length product (DLP) was 551.28 mGy-cm. Automated exposure control and iterative reconstruction technique were employed. COMPARISON: 07/22/2020 FINDINGS: There are patchy groundglass and airspace opacities of the visualized lung bases. The heart size is normal. The liver, spleen, pancreas, gallbladder, and adrenal glands are normal. The kidneys are unremarkable. No pathologically enlarged abdominal or pelvic lymph nodes are identified. The palma endix is normal. Respiratory motion artifact limits evaluation of the mid abdomen. No definite free i ntraperitoneal gas or dilated loops of bowel are evident. There is a moderate volume of liquid stool in the colon. An approximately 5.7 x 1.9 cm gas-containing fluid collection is present in the medial soft tissues of the left buttock. There is mild lumbar spondylosis. IMPRESSION: 1. Findings in the lung bases consistent with COVID 19 pneumonia. 2. Left perianal abscess. 3. Liquid stool throughout much of the colon suggestive of diarrhea. Reviewed, dictated and finalized at location A. INE PLASTER MIXER
[2020-11-29 19:58] VITALS: BP 143/81; PULSE 99; RESP 18; TEMP 37.9; O2SAT 96
[2020-11-29] MEDS: SODIUM CHLORIDE 0.9% IV 1,000 ML 999 ML IV CONT (20:15)
[2020-11-29] MEDS: LOPERAMIDE HCL 2 MG CAPSULE 4 MG PO (20:17)
[2020-11-29] MEDS: MORPHINE SULFATE (*CRX) 4 MG/ML INJ IV PUSH (20:17)
[2020-11-29] MEDS: ONDANSETRON INJ 4 MG/2 ML VIAL IV PUSH (20:17)
[2020-11-29 20:19] LABS: Basophils Percent Auto 0.3 % (0.2-1.2); Eosinophils Percent Auto 0.1 % (0-4.4); Hematocrit 44.9 % (37.0-47.0); Hemoglobin 15.3 g/dL (12.0-15.0); Immature Granulocyte Absolute 0.05 K/mm3 (0.00-0.031); Immature Granulocyte Percent A 0.5 % (0-0.5); Lymphocytes Absolute Auto 1.41 K/mm3 (0.9-3.2); Mean Corpuscular HGB Conc 34.1 g/dl (32-36); Mean Corpuscular Hemoglobin 29.7 pg (26-34); Mean Platelet Volume 11.2 fl (7.4-10.4); Monocytes Absolute Auto 0.7 K/mm3 (0.1-0.6); Monocytes Percent Auto 6.8 % (2.6-8.5); Neutrophils Absolute Auto 8.6 K/mm3 (1.3-6.7); Neutrophils Percent Auto 79.3 % (45.5-73.1); Platelet Count Result 215 k/mm3 (150-375); Red Blood Count 5.16 M/mm3 (4.2-5.4); Red Cell Distribution Width 12.2 % (11.5-14.5); White Blood Count 10.8 K/mm3 (4.5-10.0)
[2020-11-29 20:35] LABS: Alanine Aminotransferase 20 U/L (4-35); Alkaline Phosphatase 93 U/L (38-126); Anion Gap 11 mmol/L (8-16); Aspartate Amino Transferase 24 U/L (14-36); Bilirubin,Total 0.8 mg/dL (0.2-1.3); Blood Urea Nitrogen 7 mg/dL (7-17); Calcium 9.4 mg/dL (8.4-10.2); Carbon Dioxide 28 mmol/L (22-30); Chloride 94 mmol/L (98-107); Estimated CRCL calculation 84 ml/min; Estimated Glomerular Filt Rate > 60; Glucose 353 mg/dL (65-105); Lipase 37 U/L (23-300); Potassium 3.3 mmol/L (3.4-5.0); Sodium 133 mmol/L (137-145)
[2020-11-29 21:00] VITALS: BP 136/76; PULSE 90; RESP 18; O2SAT 97
[2020-11-29] MEDS: LIDOCAINE HCL 2% LOCAL INJ 20 ML VIAL (22:00)
--- NOTE | 2020-11-29 22:14 | ED.GENADULT ---
HPI - General Adult General Chief complaint: Nausea/Vomiting/Diarrhea Stated complaint: diarrhea/+covid Time Seen by Provider: 11/29/20 19:57 History of Present Illness HPI narrative: Patient is a 50-year-old female who presents [facility] department with chief complaint of generalized malaise rectal pain and COVID-19. The patient has been diagnosed with COVID-19 reports she has been having diarrhea for about a week and now reports that she has severe pain in her rectal area. Patient states she has had pus draining from the area and reports that she still has had fevers. Related Data Home Medications Medication Instructions Recorded Confirmed pen needle, diabetic [BD 12/13/19 12/13/19 Ultra-Fine Evelyn Pen Needle] Unknown Htn Medication 03/08/20 metformin 1,000 mg PO BID 03/08/20 amitriptyline 25 mg PO DAILY 03/13/20 apixaban [Eliquis] mg 06/16/20 cetirizine mg 06/16/20 duloxetine mg PO 06/16/20 ertugliflozin [Steglatro] mg 06/16/20 ezetimibe mg 06/16/20 gabapentin 06/16/20 losartan 06/16/20 metformin mg 06/16/20 metoclopramide HCl 06/16/20 omeprazole 06/16/20 tizanidine mg 06/16/20 Allergies Allergy/AdvReac Type Severity Reaction Status Date / Time No Known Allergies Allergy Unknown Verified 11/28/20 17:55 Review of Systems Review of Systems: Narrative: A 10 system review of systems was completed on the patient and is negative except for what is stated in the HPI. Nursing and ancillary documentation was reviewed. [facility] Past Medical History Medical History (Updated 11/29/20 @ 22:18 by Keith Castellon MD) Asthma delivery delivered Diabetes High cholesterol Hx of deep venous thrombosis Hypertension Surgical History Surgical History H/O section History of tonsillectomy Family History Family History Mother Heart disease Diabetes mellitus Sibling Diabetes mellitus Social History Social History Gender identity (if verbalized by the patient): Female Exam Narrative: Exam Narrative: GENERAL: Well-appearing, well-nourished, and in no acute distress. HEAD: Normocephalic, atraumatic. EYES: PERRLA and EOMI. ENT: Nares clear, no rhinorrhea or epistaxis. Mucous membranes moist. NECK: Supple. CHEST: Clear to auscultation. No respiratory distress. HEART: Regular rate and rhythm. No murmur heard. Normal peripheral pulses. ABDOMEN: Soft, nontender, nondistended, normal active bowel sounds. : There is a area of erythema and a open wound at the 6 o'clock position there is tenderness to palpation EXTREMITIES: Normal range of motion. No edema. SKIN: Warm, dry, no rash. NEURO: No focal deficits. Alert and oriented x3. PSYCH: Normal mood and affect. Course Vital Signs Vital signs: Vital Signs Temperature 37.9 C H 11/29/20 19:58 Pulse Rate 99 11/29/20 19:58 Respiratory Rate 18 11/29/20 19:58 Blood Pressure 143/81 H 11/29/20 19:58 Pulse Oximetry 96 11/29/20 19:58 Temperature 37.9 C H 11/29/20 19:58 Pulse Rate 99 11/29/20 19:58 Respiratory Rate 18 11/29/20 19:58 Blood Pressure 143/81 H 11/29/20 19:58 Pulse Oximetry 96 11/29/20 19:58 Procedures Abscess I/D aleksandra-rectal: Date of Incision: 11/29/20 Time of Incision: 22:16 Local Anesthetic: lidocaine 2% Amount of anesthesia used (mL): 5 Technique: incised with #11 blade Amount of fluid expressed (mL): 3 Packing used?: iodoform I&D Results: Pus Medical Decision Making Vital Signs Vital Signs: Vital Signs Temperature 37.9 C H 11/29/20 19:58 Pulse Rate 99 11/29/20 19:58 Respiratory Rate 18 11/29/20 19:58 Blood Pressure 143/81 H 11/29/20 19:58 Pulse Oximetry 96 11/29/20 19:58 Temperature 37.9 C H 11/29/20 19:58
[2020-11-29 22:30] VITALS: BP 133/78; PULSE 88; RESP 18; TEMP 37.3; O2SAT 97
[2020-11-29] MEDS: HYDROcodone/acetaminophen (*CRX) 5-325 MG TABLET 1 TAB PO (22:53)
[2020-11-29] MEDS: CIPROFLOXACIN 500 MG TAB PO (22:53)
[2020-11-29] MEDS: metroNIDAZOLE 250 MG TABLET 500 MG PO (22:54)
== END 2020-11-29 23:00 | disposition home or self-care (01) ==
PROVIDERS: Emergency Provider Emergency Medicine; PCP Physician Assistant
DX: U07.1 COVID-19 (principal); J12.89 Other viral pneumonia; K61.0 Anal abscess; R19.7 Diarrhea, unspecified; J45.909 Unspecified asthma, uncomplicated; E11.9 Type 2 diabetes mellitus without complications; I10 Essential (primary) hypertension; E78.00 Pure hypercholesterolemia, unspecified; Z86.718 Personal history of other venous thrombosis and embolism; Z79.84 Long term (current) use of oral hypoglycemic drugs; Z79.01 Long term (current) use of anticoagulants
CPT/HCPCS: 10061; 36415; 46050; 74177; 80053; 83690; 85025; 96361; 96374; 96375; 99284; A9270; J2270; J2405; J7030; Q9967

== ENCOUNTER 2020-12-07 15:28 | Inpatient (IN) | payer OTHER, SELFPAY ==
[2020-12-07] VITALS (8 sets, daily range): BP systolic 96–146; BP diastolic 62–90; PULSE 60–119; RESP 16–20; TEMP 35.7–37.2; O2SAT 95–100; BMI 29.9
--- NOTE | ~2020-12-07 | CT_ITS ---
EXAMINATION: CTA chest PE abdomen pel EXAM DATE: 12/07/2020 19:09 INDICATION: Pleuritic pain, shortness of breath, recent COVID. TECHNIQUE: Spiral CTA of the chest (pulmonary arteries) was performed with 100 cc Omnipaque 350 intr avenous contrast injection. Images were acquired during the pulmonary arterial phase. Coronal maxi mum intensity projection 3D-reconstructions were created by the technologist on dedicated workstation . Axial, coronal and sagittal reformatted images were reviewed. The dose-length product (DLP) for t his examination was 717.34 mGy-cm. The exposure was tailored according to patient size (auto mA exp osure control), and iterative reconstruction (ASIR) was used as additional dose reduction technique. Correlation was made with abdomen pelvis CT 11/29/2020. FINDINGS: There are no pulmonary emboli in the 1st through 3rd order (central and interlobar) pulmon shy arteries. Some loss of attenuation in the right basilar segmental pulmonary arteries without anastacio dence of respiratory motion in these areas. No Intraluminal filling defects suspected. No thoracic a ortic dissection. There is interval improvement in the previously seen scattered bibasilar groundgla ss opacities. There are no pleural or pericardial effusions. Tracheobronchial tree is patent. Th ere is no mediastinal, hilar or axillary lymphadenopathy. There is no pneumothorax. Heart normal in size. No evidence of coronary arterial calcification. Upper abdomen is unremarkable. There is mild thoracic spondylosis without osteoblastic or osteolytic lesions identified. IMPRESSION: 1. Improving COVID pneumonia. 2. Limited right basilar segmental pulmonary arterial evaluation, but no pulmonary emboli suspected. Reviewed, dictated and finalized at location A. PMENT MECHANIC IMPRESSION: 1. Improving COVID pneumonia. 2. Limited right basilar segmental pulmonary arterial evaluation, but no pulmo nary emboli suspected.
[2020-12-07 15:59] LABS: Basophils Percent Auto 0.3 % (0.2-1.2); Eosinophils Percent Auto 0.4 % (0-4.4); Hematocrit 42.9 % (37.0-47.0); Immature Granulocyte Absolute 0.03 K/mm3 (0.00-0.031); Immature Granulocyte Percent A 0.4 % (0-0.5); Lymphocytes Absolute Auto 1.69 K/mm3 (0.9-3.2); Lymphocytes Percent Auto 21.5 % (18.3-44.2); Mean Corpuscular HGB Conc 32.6 g/dl (32-36); Mean Corpuscular Hemoglobin 28.8 pg (26-34); Mean Corpuscular Volume 88.3 fl (80-100); Mean Platelet Volume 10.2 fl (7.4-10.4); Monocytes Absolute Auto 0.5 K/mm3 (0.1-0.6); Monocytes Percent Auto 5.8 % (2.6-8.5); Neutrophils Absolute Auto 5.6 K/mm3 (1.3-6.7); Neutrophils Percent Auto 71.6 % (45.5-73.1); Platelet Count Result 379 k/mm3 (150-375); Red Blood Count 4.86 M/mm3 (4.2-5.4); Red Cell Distribution Width 11.9 % (11.5-14.5); White Blood Count 7.9 K/mm3 (4.5-10.0)
[2020-12-07 16:15] LABS: Alanine Aminotransferase 15 U/L (4-35); Albumin Level 3.5 g/dL (3.5-5.1); Alkaline Phosphatase 88 U/L (38-126); Anion Gap 8 mmol/L (8-16); Aspartate Amino Transferase 27 U/L (14-36); Bilirubin,Total 0.5 mg/dL (0.2-1.3); Blood Urea Nitrogen 5 mg/dL (7-17); Carbon Dioxide 30 mmol/L (22-30); Chloride 95 mmol/L (98-107); Estimated CRCL calculation 75 ml/min; Estimated Glomerular Filt Rate > 60; Glucose 474 mg/dL (65-105); Lipase 32 U/L (23-300); Potassium 3.7 mmol/L (3.4-5.0); Sodium 133 mmol/L (137-145)
[2020-12-07 16:22] LABS: Add Urine Microscopic? YES; Appearance Urine Cloudy (Clear); Bacteria Urine Trace /hpf; Bilirubin Urine Negative (Negative); Blood Urine Negative (Negative); Color Urine Yellow (Yellow); Glucose Urine UA 3+ mg/dL (Negative); Ketones Urine Negative (Negative); Leukocyte Esterase Ur 1+ LEU/UL (Negative); Mucus Urine Rare /lpf; Nitrate Urine Negative (Negative); Protein Urine Negative (Negative); RBC Urine 0-2 /hpf (0-2); Squamous Epithelial Cell Urine Many /hpf (Few); Urobilinogen Urine Negative mg/dL (<2.0)
[2020-12-07 16:23] LABS: Specific Grav Ur 1.036 (1.001-1.035)
--- NOTE | 2020-12-07 19:00 | ED.ABDPAIN ---
HPI - Abdominal Pain General Chief Complaint: Abdominal Pain <АННА Esquivel Last Filed: 12/07/20 21:05> Stated Complaint: staff infection post covid <АННА Esquivel Last Filed: 12/07/20 21:05> Time Seen by Provider: 12/07/20 18:02 <АННА Esquivel Last Filed: 12/07/20 21:05> Source: patient <АННА Esquivel Last Filed: 12/07/20 21:05> Mode of arrival: ambulatory <АННА sEquivel Last Filed: 12/07/20 21:05> Limitations: no limitations <АННА Esquivel Last Filed: 12/07/20 21:05> History of Present Illness HPI narrative: This is a 50 year old female that presents to the ER for upper abdominal pain that has been constant for 2 weeks. Associated with diarrhea. Also reports a wound on her bottom that she was seen recently here for that she had lanced. She has been taking oral antibiotics with continued foul smelling drainage and worsening of wound. Reports pleuritic chest pain and shortness of breath which has been ongoing since recent covid. Denies fever. <АННА Esquivel Last Filed: 12/07/20 21:05> Related Data Home Medications: Home Medications Medication Instructions Recorded Confirmed pen needle, diabetic [BD 12/13/19 12/13/19 Ultra-Fine Evelyn Pen Needle] amitriptyline 25 mg PO DAILY 03/13/20 apixaban [Eliquis] mg 06/16/20 duloxetine mg PO 06/16/20 ezetimibe mg 06/16/20 losartan 06/16/20 metformin mg 06/16/20 insulin glargine [Basaglar Narcisa SUBCUT 12/07/20 U-100 Insulin] sitagliptin [Januvia] mg 12/07/20 <АННА Esquivel Last Filed: 12/07/20 21:05> Allergies/Adverse Reactions: Allergies Allergy/AdvReac Type Severity Reaction Status Date / Time No Known Allergies Allergy Unknown Verified 12/07/20 15:48 <Ijeoma Aj PA-C - Last Filed: 12/07/20 21:05> Review of Systems Review of Systems: Narrative: CONSTITUTIONAL: Denies fever CARDIOVASCULAR: Denies pleuritic chest pain. Denies edema. RESPIRATORY: Reports cough and dyspnea. GASTROINTESTINAL: Reports abdominal pain, diarrhea. Denies nausea or vomiting GENITOURINARY: Denies dysuria SKIN: Reports wound <Ijeoma Aj PA-C - Last Filed: 12/07/20 21:05> All systems reviewed & are unremarkable except as noted in HPI and below <Ijeoma Aj PA-C - Last Filed: 12/07/20 21:05> PMFSH Past Medical History Medical History: Medical History (Updated 12/07/20 @ 21:05 by Ijeoma Aj PA-C) Asthma delivery delivered Diabetes High cholesterol Hx of deep venous thrombosis Hypertension <Ijeoma Aj PA-C - Last Filed: 12/07/20 21:05> Surgical History Surgical History: Surgical History H/O section History of tonsillectomy <Ijeoma Aj PA-C - Last Filed: 12/07/20 21:05> Family History Family History: Family History Mother Heart disease Diabetes mellitus Sibling Diabetes mellitus <Ijeoma Aj PA-C - Last Filed: 12/07/20 21:05> Social History Social History: Social History Gender identity (if verbalized by the patient): Female <Ijeoma Aj PA-C - Last Filed: 12/07/20 21:05> Exam Narrative: Exam Narrative: GENERAL: Well-appearing, well-nourished, and in no acute distress. HEAD: Normocephalic, atraumatic. EYES: EOMI. ENT: Mucous membranes moist. Oropharynx without tonsillar hypertrophy exudate or other lesions. NECK: Supple. No adenopathy or masses. CHEST: Clear to auscultation. No respiratory distress. No wheezes rales or rhonchi HEART: Regular rate and rhythm. No murmur heard. Normal peripheral pulses. ABDOMEN: Soft, nondistended, normal active bowel sounds. Mild tenderness to palpation of the upper abdomen, without guarding. No CVA tenderness EXTREMITIES:
[2020-12-07 19:10] LABS: Erythrocyte Sedimentation Rate 95 mm/hr (0-20)
[2020-12-07 19:12] LABS: INR 1.3; Prothrombin Time 17.1 Seconds (11.1-14.7)
[2020-12-07 19:13] LABS: Partial Thromboplastin Time 30.1 SECONDS (22.3-36.8)
[2020-12-07 19:16] LABS: Hemoglobin A1C 10.1 % (<5.7)
[2020-12-07 19:31] LABS: CRP 11.8 mg/dL (<1.0)
[2020-12-07] MEDS: INSULIN HUMAN REGULAR (*BKC) 100 UNITS/ML 7 UNITS IV PUSH (20:55)
[2020-12-07 20:56] LABS: Glucose Point of Care 294 (65-105)
--- NOTE | 2020-12-07 22:55 | ADMGEN ---
This patient, Madhavi Stein, was admitted to [facility] Surg Room 319-01. Patient/family oriented to hospital policies and general routines including ID bracelet, bed and alarms, visiting hours, pain management, procedures, bathroom and other care routines, personal items, smoking policy, room service/diet, and visiting hours. Information on how to activate the Rapid Response Team has been discussed. Patient/Family are encouraged to report perceived risks to care and to ask questions if they do not understand what they are told or what they should do.
[2020-12-07 23:31] LABS: Glucose Point of Care 210 (65-105)
[2020-12-08] MEDS: SODIUM CHLORIDE 0.9% IV 1,000 ML 100 ML IV CONT ×2 (01:31→09:58)
--- NOTE | 2020-12-08 05:16 | PM.IMHP ---
H&P: HPI History of Present Illness Date/Time: 12/07/20 23:00 Chief Complaint: abd pain, rectal wound Narrative: This is a 50 year old Diabetic female who is known to be anticoagulated on Eliquis secondary to a previous DVT. She presented to the hospital with a complaint of upper epigastric abdominal pain for the past two weeks as well as an ongoing perirectal wound that is draining purulent fluid. She denies any nausea or vomiting. She was seen in our ER on November 29 when she had her wound lanced and drained. She has been taking the oral antibiotics she was prescribed although she continue to have rectal pain and foul smelling discharge. She also reports that she has not been on her Eliquis since after . She tested positive for COVID-19 on Oct. She has had ongoing cough, shortness of breath and fatigue. She denies any chest pain or fevers. The patient was evaluated in the ER and found to have hyperglycemia with a blood gluose of 474 mg/dl. CT abd/pelvis demonstrated improving COVID pneumonia and limited right basilar segmental pulmonary arterial evaluation, but no pulmonary emboli suspected. The patient was treated in the ER with IV zosyn, IV insulin, and general surgery was consulted to evaluate her perirectal wound. On my encounter with her tonight she is complaining of perirectal pain. She has no other complaints tonight. Review of Systems Review of Systems: All systems reviewed & are unremarkable except as noted in HPI and below PMFSH Past Medical History Medical History Asthma delivery delivered Diabetes High cholesterol Hx of deep venous thrombosis Hypertension Surgical History Surgical History H/O section History of tonsillectomy Family History Family History Mother Diabetes mellitus Heart disease Acute myocardial infarction Sibling Diabetes mellitus Social History Social History Smoking status: Never smoker Alcohol intake: never Substance use: never Gender identity (if verbalized by the patient): Female Sexual Orientation (if Verbalized by the Patient): Straight or Heterosexual Spiritual care concerns: No Meds Home Medications and Allergies Home Medications Medication Instructions Recorded Confirmed Type pen needle, diabetic [BD 12/13/19 12/07/20 History Ultra-Fine Evelyn Pen Needle] amitriptyline 25 mg PO DAILY 03/13/20 12/07/20 History apixaban [Eliquis] 5 mg PO DAILY 06/16/20 12/07/20 History duloxetine 60 mg PO HS 06/16/20 12/07/20 History ezetimibe 10 mg PO DAILY 06/16/20 12/07/20 History losartan 50 mg PO DAILY 06/16/20 12/07/20 History metformin 10,000 mg PO BID 06/16/20 12/07/20 History albuterol sulfate 4 puff INHALATION QID PRN #8 gm 11/28/20 12/07/20 Rx ciprofloxacin HCl 500 mg PO Q12H #20 tablet 11/29/20 12/07/20 Rx metronidazole [Flagyl] 500 mg PO Q8H #30 tablet 11/29/20 12/07/20 Rx insulin glargine [Basaglar KwikPen 24 unit SUBCUT HS 12/07/20 12/07/20 History U-100 Insulin] pregabalin 150 mg PO BID 12/07/20 12/07/20 History sitagliptin [Januvia] 100 mg PO DAILY 12/07/20 12/07/20 History Allergies Allergy/AdvReac Type Severity Reaction Status Date / Time No Known Allergies Allergy Unknown Verified 12/08/20 00:24 Vital Signs Vital Signs - 24 hr 12/07/20 15:44 12/07/20 17:56 12/07/20 18:54 Temperature 36.2 C L 37.1 C 37.2 C Pulse Rate 119 H 80 74 Respiratory Rate 16 20 18 Blood Pressure 146/90 H 119/87 123/84 Pulse Oximetry 100 98 100 12/07/20 19:45 12/07/20 20:52 12/07/20 22:12 Temperature 37.2 C 36.7 C Pulse Rate 60 64 Respiratory Rate 18 18 Blood Pressure 96/62 L 112/71 Pulse Oximetry 98 95 12/07/20 22:55 12/07/20 23:08 Temperature 35.7 C L Pulse Rate 67 Respiratory Ra
[2020-12-08 05:44] LABS: Glucose Point of Care 260 (65-105)
[2020-12-08] MEDS: INSULIN ASPART (*BKC) 100 UNITS/ML SUB-Q ×4 (05:44→23:48)
[2020-12-08 05:58] VITALS: BP 126/69; PULSE 94; RESP 16; TEMP 36; O2SAT 100
[2020-12-08 06:39] LABS: Basophils Percent Auto 0.5 % (0.2-1.2); Eosinophils Absolute Auto 0.1 K/mm3 (0-0.3); Hematocrit 39.4 % (37.0-47.0); Hemoglobin 12.9 g/dL (12.0-15.0); Immature Granulocyte Absolute 0.02 K/mm3 (0.00-0.031); Immature Granulocyte Percent A 0.3 % (0-0.5); Lymphocytes Absolute Auto 1.87 K/mm3 (0.9-3.2); Lymphocytes Percent Auto 29.7 % (18.3-44.2); Mean Corpuscular HGB Conc 32.7 g/dl (32-36); Mean Corpuscular Hemoglobin 28.9 pg (26-34); Mean Corpuscular Volume 88.1 fl (80-100); Mean Platelet Volume 10.1 fl (7.4-10.4); Monocytes Absolute Auto 0.5 K/mm3 (0.1-0.6); Monocytes Percent Auto 7.3 % (2.6-8.5); Neutrophils Absolute Auto 3.9 K/mm3 (1.3-6.7); Neutrophils Percent Auto 61.2 % (45.5-73.1); Platelet Count Result 295 k/mm3 (150-375); Red Blood Count 4.47 M/mm3 (4.2-5.4); White Blood Count 6.3 K/mm3 (4.5-10.0)
[2020-12-08 06:55] LABS: Lactic Acid Reflex 1.1 mmol/L (0.7-2.1)
[2020-12-08 06:57] LABS: Anion Gap 3 mmol/L (8-16); Blood Urea Nitrogen 6 mg/dL (7-17); Calcium 8.1 mg/dL (8.4-10.2); Carbon Dioxide 32 mmol/L (22-30); Chloride 99 mmol/L (98-107); Estimated CRCL calculation 85 ml/min; Estimated Glomerular Filt Rate > 60; Glucose 295 mg/dL (65-105); Potassium 3.3 mmol/L (3.4-5.0); Sodium 134 mmol/L (137-145)
[2020-12-08 08:00] VITALS: PULSE 94; RESP 16; O2SAT 100
[2020-12-08] MEDS: PANTOPRAZOLE SODIUM IV 40 MG VIAL IV PUSH (10:00)
--- NOTE | 2020-12-08 12:15 | PM.CNGS ---
Assessment and Plan Assessment and plan (1) Perirectal abscess: Code(s): K61.1 - Rectal abscess Status: Acute Assessment and Plan: will need further debridement and washout in OR, plan for Thursday, cont abx and local wound care for now (2) Diabetes mellitus: Qualifiers: Diabetes mellitus complication detail: with other skin ulcer Diabetes mellitus complication status: with skin complications Diabetes mellitus termite inspector insulin use: with termite inspector use Diabetes mellitus type: type 2 Qualified Code(s): E11.622 - Type 2 diabetes mellitus with other skin ulcer; Z79.4 - USP (current) use of insulin Code(s): E11.9 - Type 2 diabetes mellitus without complications Status: Chronic Assessment and Plan: needs tighter bs control, d/w pt importance of monitoring/treatment (3) Pneumonia due to 2019-nCoV: Code(s): U07.1 - COVID-19; J12.89 - Other viral pneumonia Status: Acute Assessment and Plan: improved, cont supp care History of Present Illness Consult details Consult date: 12/08/20 Reason for consult: wound care Requesting physician: Alma Rosa Salvador PA-C Narrative: Pt is a 50 y/o F c poorly controlled DM presenting c worsening R perirectal wound x 1 wk. Pt reports abscess in the area that was drained in the ED last week. Pt sent home c local wound care instructions and abx. Pt reports wound cont to get worse and draining purulent fluid. Pt denies f/c, reports some weakness and fatigue. Review of Systems Constitutional: Constitutional: Denies anorexia, Denies chills, Reports fatigue, Denies fever(s), Denies headache(s), Reports lethargy, Denies malaise and Reports weakness Eyes: Eyes: Reports no additional eye complaints ENT: Reports system reviewed and no additional complaints, except as documented Cardiovascular: Cardiovascular: Reports no additional cardiovascular complaints Respiratory: Respiratory: Reports no additional respiratory complaints Gastrointestinal: Gastrointestinal: Reports no additional gastrointestinal complaints Genitourinary: Genitourinary: Reports no additional female genitourinary complaints Musculoskeletal: Musculoskeletal: Reports no additional musculoskeletal complaints Integumentary/Breasts: Skin/Breast: Reports as per HPI Neurologic: Reports system reviewed and no additional complaints, except as documented Psychiatric: Psychiatric: Reports no additional psychiatric complaints Endocrine: Endocrine: Reports no additional endocrine complaints Hematologic/Lymphatic: Hematologic/Lymphatic: Reports no additional hematologic/lymphatic complaints Allergic/Immunologic: Allergic/Immunologic: Reports no additional allergic/immunologic complaints PMFSH Past Medical History Medical History Asthma delivery delivered Diabetes High cholesterol Hx of deep venous thrombosis Hypertension Surgical History Surgical History H/O section History of tonsillectomy Family History Family History Mother Diabetes mellitus Heart disease Acute myocardial infarction Sibling Diabetes mellitus Social History Social History Smoking status: Never smoker Alcohol intake: never Substance use: never Gender identity (if verbalized by the patient): Female Sexual Orientation (if Verbalized by the Patient): Straight or Heterosexual Spiritual care concerns: No Meds Home Medications and Allergies Home Medications Medication Instructions Recorded Confirmed Type pen needle, diabetic [BD 12/13/19 12/07/20 History Ultra-Fine Evelyn Pen Needle] amitriptyline 25 mg PO DAILY 03/13/20 12/07/20 History apixaban [Eliquis] 5 mg PO DAILY 06/16/20 12/07/20 History duloxetine 60 mg PO HS 06/16/20
[2020-12-08] MEDS: MORPHINE SULFATE (*CRX) 2 MG/ML INJ IV PUSH (13:07)
[2020-12-08 14:00] VITALS: BP 113/81; PULSE 71; RESP 20; TEMP 35.7; O2SAT 99
[2020-12-08 14:28] LABS: Glucose Point of Care 284 (65-105)
[2020-12-08] MEDS: POTASSIUM CHLORIDE 20 MEQ TABLET 40 MEQ PO (14:48)
--- NOTE | 2020-12-08 15:26 | PM.IMPN ---
Progress Note: A&P Assessment and Plan (1) Perirectal ulcer: Code(s): K62.6 - Ulcer of anus and rectum Status: Acute Assessment and Plan: Patient has a perirectal ulcer and she plans to go to surgery either tomorrow or Thursday -continue Zosyn -g stain shows mixed bacteria -wound care per surgery -white blood cell count within normal limits -blood cultures pending (2) Epigastric pain: Code(s): R10.13 - Epigastric pain Status: Acute Assessment and Plan: Improving -continue Protonix -could be due to COVID-19 or current infection -may need GI referral outpatient for possible gastritis or PUD (3) Pneumonia due to 2019-nCoV: Code(s): U07.1 - COVID-19; J12.89 - Other viral pneumonia Status: Acute Assessment and Plan: Resolving, it has been 18 days since her diagnosis -no further isolation needed -patient on room air -she still has a cough and likely atelectasis since she is not taking deep breaths -Incentive spirometer ordered (4) Chronic anticoagulation: Code(s): Z79.01 - long-term (current) use of anticoagulants Status: Chronic Assessment and Plan: The patient is known to be chronically anticoagulated for a previous DVT -She has not been taking her Eliquis. -continue to hold Eliquis until after surgery (5) Diabetes mellitus: Qualifiers: Diabetes mellitus complication detail: with other skin ulcer Diabetes mellitus complication status: with skin complications Diabetes mellitus long term care social worker insulin use: with long term care social worker use Diabetes mellitus type: type 2 Qualified Code(s): E11.622 - Type 2 diabetes mellitus with other skin ulcer; Z79.4 - roasterman (current) use of insulin Code(s): E11.9 - Type 2 diabetes mellitus without complications Status: Chronic Assessment and Plan: Patient has uncontrolled diabetes with a hemoglobin of 10.1 -last glucose 284 -she will need adequate treatment in order to heal properly -she takes 24 units of long-acting insulin at home, a 1000 mg of metformin b.i.d., and Januvia 100 mg daily -will continued sliding scale insulin as well as long-acting (6) Hypertension: Qualifiers: Hypertension type: unspecified Qualified Code(s): I10 - Essential (primary) hypertension Code(s): I10 - Essential (primary) hypertension Status: Chronic Assessment and Plan: Last blood pressure 126/69 -patient was lower on admission -will continue to hold blood pressure medications in at them back as needed Time Spent With Patient Time with patient: 25 - 35 minutes Subjective Date/time seen: 12/08/20 15:26 Interval history: Pt is a 50-year-old female here for rectal wound as well as epigastric pain. Patient was seen today and states she is feeling okay. She is mostly complaining of rectal pain today which she explains as a 9/10. She had not received the morphine at this time but was told that she could utilize this if needed. She says her stomach feels a bit better but she does not have much of an appetite. She still has a mild cough and does not think she will ever get rid of it after having COVID. She feels mildly weak but overall okay. She denies chest pain. She seems to cough more when she takes deep breaths Review of Systems Review of Systems: All systems reviewed & are unremarkable except as noted in HPI and below Exam Narrative: Exam Narrative: General: Well developed well nourished patient in NAD HEENT: normocephalic Neck: supple Neuro: Alert and oriented x4 CV:RRR Resp:Shallow breaths and when I prompted her to take deep breath she would cough. Decreased breath sounds otherwise clear Abd: Soft, non distended. No pain to palpation. Positive bowel sounds Extremities: No swelling, erythema, or pain to palpation. Skin: Right-sided Perirectal wound with purulent discharge Objective Data Vital Signs Vital Signs: Vital Signs - 24
[2020-12-08 18:01] LABS: Glucose Point of Care 303 (65-105)
[2020-12-08 20:00] VITALS: O2SAT 99
[2020-12-08] MEDS: PREGABALIN (*CRX) 75 MG CAPSULE 150 MG PO (20:20)
[2020-12-08] MEDS: DULoxetine HCL 60 MG CAPSULE.DR PO (20:20)
[2020-12-08] MEDS: INSULIN GLARGINE (*BKC) 100 UNITS/ML 16 UNITS SUB-Q (20:20)
[2020-12-08 22:00] VITALS: BP 112/54; PULSE 62; RESP 20; TEMP 36.3; O2SAT 98
[2020-12-09 00:59] LABS: Glucose Point of Care 252 (65-105)
[2020-12-09 06:00] VITALS: BP 143/68; PULSE 67; RESP 20; TEMP 36.9; O2SAT 93
[2020-12-09 06:44] LABS: Hematocrit 39.9 % (37.0-47.0); Mean Corpuscular HGB Conc 32.6 g/dl (32-36); Mean Corpuscular Hemoglobin 29.2 pg (26-34); Mean Corpuscular Volume 89.7 fl (80-100); Mean Platelet Volume 10.3 fl (7.4-10.4); Platelet Count Result 340 k/mm3 (150-375); Red Blood Count 4.45 M/mm3 (4.2-5.4)
[2020-12-09 07:01] LABS: Potassium 4.1 mmol/L (3.4-5.0)
[2020-12-09 07:07] LABS: Anion Gap 5 mmol/L (8-16); Blood Urea Nitrogen 6 mg/dL (7-17); CRP 4.6 mg/dL (<1.0); Calcium 8.1 mg/dL (8.4-10.2); Carbon Dioxide 28 mmol/L (22-30); Chloride 101 mmol/L (98-107); Estimated CRCL calculation 85 ml/min; Estimated Glomerular Filt Rate > 60; Glucose 322 mg/dL (65-105); Sodium 134 mmol/L (137-145)
[2020-12-09 08:00] VITALS: PULSE 67; RESP 20; O2SAT 93
[2020-12-09 08:21] LABS: Glucose Point of Care 321 (65-105)
[2020-12-09] MEDS: INSULIN ASPART (*BKC) 100 UNITS/ML SUB-Q ×5 (08:55→17:59)
[2020-12-09] MEDS: PANTOPRAZOLE SODIUM IV 40 MG VIAL IV PUSH ×2 (08:56→20:40)
[2020-12-09] MEDS: AMITRIPTYLINE HCL 25 MG TABLET PO (08:56)
[2020-12-09] MEDS: EZETIMIBE 10 MG TABLET PO (08:56)
[2020-12-09] MEDS: PREGABALIN (*CRX) 75 MG CAPSULE 150 MG PO ×2 (08:59→20:33)
--- NOTE | 2020-12-09 09:54 | PC.NURSE ---
All charting and medications done from 650-300 on this patient was done by Brianna Valentine RN but documented under the name of Endy Diaz RN by mistake.
--- NOTE | 2020-12-09 11:33 | PM.PNGS ---
Progress Note: A&P Assessment and Plan (1) Perirectal abscess: Code(s): K61.1 - Rectal abscess Status: Acute Assessment and Plan: cont abx, local wound care, OR in am for debridement, poss vac (2) Diabetes: Code(s): E11.9 - Type 2 diabetes mellitus without complications Status: Acute Assessment and Plan: tight bs control Subjective Subjective Date/Time Seen: 12/09/20 11:33 Pt denies any acute issues, reports perirectal area cont to be sore Review of Systems Review of Systems: All systems reviewed & are unremarkable except as noted in HPI and below Exam Const: General: cooperative and acute distress mild Nutritional Appearance: obese Orientation/consciousness: patient oriented x3 Resp: Effort & Inspection: normal respiratory effort Auscultation: clear to auscultation bilaterally Cardio: Rate: regular rate Rhythm: regular rhythm GI: Inspection: normal to inspection GI Palp: Yes Soft to palpation and No Tenderness to palpation present (GI) Skin: Other: R perirectal wound c purulent drainage Objective Data Vital Signs Vital Signs: Vital Signs - 24 hr 12/08/20 14:00 12/08/20 20:00 12/08/20 22:00 Temperature 35.7 C L 36.3 C L Pulse Rate 71 62 Respiratory Rate 20 20 Blood Pressure 113/81 112/54 L Pulse Oximetry 99 99 98 12/09/20 06:00 12/09/20 08:00 Temperature 36.9 C Pulse Rate 67 67 Respiratory Rate 20 20 Blood Pressure 143/68 H Pulse Oximetry 93 93 Intake/Output Intake/Output: Intake & Output 12/06/20 12/07/20 12/08/20 12/09/20 23:59 23:59 23:59 23:59 Intake Total 150 3390 720 Output Total 900 500 Balance 150 2490 220 Meds/Results Medications: Active Medications Generic Name Dose Route Start Last Admin Trade Name Freq PRN Reason Stop Dose Admin Acetaminophen 650 mg 12/08/20 15:39 Acetaminophen 325 Mg Tablet PO Q4H PRN pain 1-3 Hydrocodone Bitart/Acetaminophen 1 tab 12/08/20 15:39 Hydrocodone/Acetaminophen (*Crx) 5-325 Mg Tablet PO Q6H PRN Pain Rated 4-6 Hydrocodone Bitart/Acetaminophen 1 tab 12/08/20 15:39 Hydrocodone/Acetaminophen (*Crx) 10-325 Mg Tablet PO Q6H PRN Pain Rated 7-10 Albuterol 4 puff 12/08/20 05:42 Albuterol Sulfate (*Sp) Aerosol 1 Puff INHALATION QID PRN shortness of breath or wheezing Amitriptyline HCl 25 mg 12/09/20 09:00 12/09/20 08:56 Amitriptyline Hcl 25 Mg Tablet PO 25 mg DAILY MARTIN Administration Dextrose 12.5 gm 12/08/20 00:58 Dextrose 50% 25 Gm/50 Ml Syringe IV PUSH PRN PRN Hypoglycemia Protocol Duloxetine HCl 60 mg 12/08/20 21:00 12/08/20 20:20 Duloxetine Hcl 60 Mg Capsule.Dr PO 60 mg HS MARTIN Administration Ezetimibe 10 mg 12/09/20 09:00 12/09/20 08:56 Ezetimibe 10 Mg Tablet PO 10 mg DAILY MARTIN Administration Glucagon 1 mg 12/08/20 00:58 Glucagon For Inj 1 Mg Vial IM PRN PRN Hypoglycemia Protocol Piperacillin/Tazobactam/Dextrose 3.375 gm in 50 mls @ 100 mls/hr 12/08/20 01:00 12/09/20 05:53 Zosyn 3.375 Gm/D5w 50ml Pm IVPB Infused Q6HR MARTIN Infusion Dextrose 1,000 mls @ 100 mls/hr 12/08/20 00:58 Dextrose 5% 1,000 Ml IVPB PRN PRN Hypoglycemia Protocol Insulin Aspart 2 - 5 units 12/09/20 08:00 12/09/20 08:55 Insulin Aspart (*Bkc) 100 Units/Ml SUB-Q 4 units TIDWM MARTIN Administration Protocol Insulin Aspart 5 units 12/09/20 12:00 Insulin Aspart (*Bkc) 100 Units/Ml SUB-Q TIDWM MARTIN Insulin Glargine 16 units 12/08/20 21:00 12/08/20 20:20 Insulin Glargine (*Bkc) 100 Units/Ml SUB-Q 16 units HS MARTIN Administration Morphine Sulfate 1 mg 12/08/20 15:41 Morphine Sulfate (*Crx) 2 Mg/Ml Inj IV PUSH Q4H PRN Breakthrough pain Pantoprazole Sodium 40 mg 12/08/20 09:00 12/09/20 08:56 Pantoprazole Sodium Iv 40 Mg Vial IV PUSH 40 mg QAM MARTIN Administration Pregabalin 150 mg
[2020-12-09 12:06] LABS: Glucose Point of Care 260 (65-105)
--- NOTE | 2020-12-09 13:15 | PM.IMPN ---
Progress Note: A&P Assessment and Plan (1) Perirectal ulcer: Code(s): K62.6 - Ulcer of anus and rectum Status: Acute Assessment and Plan: Patient has a perirectal ulcer and she plans to go to surgery tomorrow at 10:00 a.m. -continue Zosyn -g stain shows mixed bacteria -culture growing Streptococcus miliary -wound care per surgery -white blood cell count within normal limits -blood cultures no growth to date (2) Epigastric pain: Code(s): R10.13 - Epigastric pain Status: Acute Assessment and Plan: Improving -continue Protonix BID -will add Carafate -consider gastric ulcer or gastritis causing the pain -could be due to COVID-19 or current infection but seems less likely since it is so focal -she has seen Dr. Steve in the past and had an EGD 2 years ago which was negative according to her -I have let Dr. Steve know she is here, he might try to do an EGD tomorrow around her scheduled surgery time (3) Pneumonia due to 2019-nCoV: Code(s): U07.1 - COVID-19; J12.89 - Other viral pneumonia Status: Acute Assessment and Plan: Resolving, it has been 19 days since her diagnosis -no further isolation needed -patient on room air -she still has a cough and likely atelectasis since she is not taking deep breaths -Incentive spirometer encouraged (4) Chronic anticoagulation: Code(s): Z79.01 - halfway (current) use of anticoagulants Status: Chronic Assessment and Plan: The patient is known to be chronically anticoagulated for a previous DVT -She has not been taking her Eliquis. -continue to hold Eliquis until after surgery (5) Diabetes mellitus: Qualifiers: Diabetes mellitus complication detail: with other skin ulcer Diabetes mellitus complication status: with skin complications Diabetes mellitus penitentiary insulin use: with penitentiary use Diabetes mellitus type: type 2 Qualified Code(s): E11.622 - Type 2 diabetes mellitus with other skin ulcer; Z79.4 - halfway (current) use of insulin Code(s): E11.9 - Type 2 diabetes mellitus without complications Status: Chronic Assessment and Plan: Patient has uncontrolled diabetes with a hemoglobin of 10.1 -last glucose 260 -she ran high this morning with a glucose of 322 -will do scheduled insulin with meals as well as sliding scale insulin and include her Lantus -will hold Lantus tonight if she is NPO tomorrow -she will need adequate treatment in order to heal properly -she takes 24 units of long-acting insulin at home, a 1000 mg of metformin b.i.d., and Januvia 100 mg daily (6) Hypertension: Qualifiers: Hypertension type: unspecified Qualified Code(s): I10 - Essential (primary) hypertension Code(s): I10 - Essential (primary) hypertension Status: Chronic Assessment and Plan: Last blood pressure 143/68 -patient was lower on admission -will restart home losartan. Subjective Date/time seen: 12/09/20 13:15 Interval history: Pt is a 50-year-old female here for sacral wound as well as epigastric pain. Patient was seen today and states she still has the sacral pain especially earlier when she was trying to have a bowel movement. She still is having discharge from the area. Her epigastric pain is better and she has no pain at rest but she does have pain with palpation. She is able to eat without issue at this time and she thinks her epigastric pain is better. Her cough has improved today but she still coughs with the spirometer. She denies chest pain, shortness of breath, fevers, chills, nausea or leg swelling Exam Narrative: Exam Narrative: General: Well developed well nourished patient in NAD HEENT: normocephalic Neck: supple Neuro: Alert and oriented x4 CV:RRR Resp: Patient able to take deeper breaths today--slightly diminished at the bases, otherwise clear Abd: Soft, non distended. Pain to palpation to the epi
[2020-12-09 14:00] VITALS: BP 136/79; PULSE 58; RESP 16; TEMP 36.6; O2SAT 100
[2020-12-09] MEDS: SUCRALFATE SUSP 100 MG/ML 10 ML UDC 1000 MG PO ×2 (17:58→20:25)
[2020-12-09] MEDS: LOSARTAN POTASSIUM 50 MG TABLET PO (17:59)
[2020-12-09 18:28] LABS: Glucose Point of Care 265 (65-105)
[2020-12-09] MEDS: DULoxetine HCL 60 MG CAPSULE.DR PO (20:25)
[2020-12-09 20:33] VITALS: O2SAT 96
[2020-12-09 22:00] VITALS: BP 120/68; PULSE 68; RESP 20; TEMP 36.6; O2SAT 96
[2020-12-10] VITALS (10 sets, daily range): BP systolic 108–152; BP diastolic 64–83; PULSE 60–80; RESP 14–20; TEMP 35.8–36.9; O2SAT 94–100
[2020-12-10 02:22] LABS: Glucose Point of Care 303 (65-105)
[2020-12-10 06:45] LABS: Hematocrit 36.7 % (37.0-47.0); Mean Corpuscular HGB Conc 32.7 g/dl (32-36); Mean Corpuscular Hemoglobin 29.3 pg (26-34); Mean Corpuscular Volume 89.5 fl (80-100); Mean Platelet Volume 10.4 fl (7.4-10.4); Platelet Count Result 301 k/mm3 (150-375); White Blood Count 5.1 K/mm3 (4.5-10.0)
[2020-12-10 07:00] LABS: Anion Gap 1 mmol/L (8-16); Blood Urea Nitrogen 10 mg/dL (7-17); Calcium 7.9 mg/dL (8.4-10.2); Carbon Dioxide 31 mmol/L (22-30); Chloride 100 mmol/L (98-107); Estimated CRCL calculation 85 ml/min; Estimated Glomerular Filt Rate > 60; Glucose 285 mg/dL (65-105); Potassium 4.1 mmol/L (3.4-5.0); Sodium 132 mmol/L (137-145)
[2020-12-10] MEDS: PREGABALIN (*CRX) 75 MG CAPSULE 150 MG PO ×2 (08:54→22:14)
[2020-12-10] MEDS: PANTOPRAZOLE SODIUM IV 40 MG VIAL IV PUSH ×2 (08:54→21:55)
[2020-12-10] MEDS: AMITRIPTYLINE HCL 25 MG TABLET PO (08:54)
[2020-12-10] MEDS: INSULIN ASPART (*BKC) 100 UNITS/ML SUB-Q ×4 (08:59→17:22)
--- NOTE | 2020-12-10 10:42 | PM.IMPN ---
Progress Note: A&P Assessment and Plan (1) Perirectal ulcer: Code(s): K62.6 - Ulcer of anus and rectum Status: Acute Assessment and Plan: Patient has a perirectal ulcer and she plans to go to surgery later today -continue Zosyn -g stain shows mixed bacteria -culture growing Streptococcus miliary and group C strep -wound care per surgery -white blood cell count within normal limits -blood cultures no growth to date (2) Epigastric pain: Code(s): R10.13 - Epigastric pain Status: Acute Assessment and Plan: Improving -continue Protonix BID -Carafate added 12/09/20 -consider gastric ulcer or gastritis causing the pain -could be due to COVID-19 or current infection but seems less likely since it is so focal -she has seen Dr. Steve in the past and had an EGD and colonoscopy 2 years ago which was negative according to her -I have let Dr. Steve know she is here, he was considering an EGD but unsure with the OR schedule since she is having the debridement today (3) Pneumonia due to 2019-nCoV: Code(s): U07.1 - COVID-19; J12.89 - Other viral pneumonia Status: Acute Assessment and Plan: Resolving, it has been 20 days since her diagnosis -no further isolation needed -patient on room air -she still has a cough and likely atelectasis since she is not taking deep breaths -Incentive spirometer encouraged (4) Chronic anticoagulation: Code(s): Z79.01 - terminal makeup operator (current) use of anticoagulants Status: Chronic Assessment and Plan: The patient is known to be chronically anticoagulated for a previous DVT last June -continue to hold Eliquis until after surgery (5) Diabetes mellitus: Qualifiers: Diabetes mellitus complication detail: with other skin ulcer Diabetes mellitus complication status: with skin complications Diabetes mellitus intermodal dispatcher insulin use: with intermodal dispatcher use Diabetes mellitus type: type 2 Qualified Code(s): E11.622 - Type 2 diabetes mellitus with other skin ulcer; Z79.4 - longterm (current) use of insulin Code(s): E11.9 - Type 2 diabetes mellitus without complications Status: Chronic Assessment and Plan: Patient has uncontrolled diabetes with a hemoglobin of 10.1 -last glucose 285 -she has been running high -will continue insulin with meals as well as sliding scale insulin and Lantus (Lantus held night of 12/09/20 due to NPO status) -she will need adequate treatment in order to heal properly -she takes 24 units of long-acting insulin at home, a 1000 mg of metformin b.i.d., and Januvia 100 mg daily -would consider increasing home Lantus at discharge (6) Hypertension: Qualifiers: Hypertension type: unspecified Qualified Code(s): I10 - Essential (primary) hypertension Code(s): I10 - Essential (primary) hypertension Status: Chronic Assessment and Plan: Last blood pressure 127/64 -patient initially hypotensive on admission and blood pressure medications were held -her losartan has been restarted 12/09/20 Subjective Date/time seen: 12/10/20 10:42 Interval history: Pt is a 50-year-old female here for sacral wound as well as epigastric pain. Patient was seen today and still has pain. She thinks she is constipated and has gas but overall doing okay. She has been unable to eat due to NPO status but continues to have the epigastric pain although that has improved since admission. She is unsure if the Carafate worked overnight since she has not really eaten anything. She still is having discharge from the perirectal area. Her cough is improving but she still has a cough with thick breaths. She denies chest pain, shortness of breath, fevers, chills, nausea or leg swelling Exam Narrative: Exam Narrative: General: Well developed well nourished patient in NAD HEENT: normocephalic Neck: supple Neuro: Alert and oriented x4 CV:RRR Resp: Patient able to take d
--- NOTE | 2020-12-10 11:53 | WPDHPUPDATE1 ---
History and Physical Update Update Date/Time: 12/10/20 11:53 History and Physical has been reviewed, including an updated exam of the patient. There are NO changes in the patient's condition. Risks, benefits, and alternatives have been discussed and questions answered. Patient agrees to proceed with procedure.
[2020-12-10 12:04] LABS: Glucose Point of Care 270 (65-105)
[2020-12-10 12:04] LABS: Glucose Point of Care 276 (65-105)
--- NOTE | 2020-12-10 13:00 | PC.NURSE ---
To OR per bed, IV locked. Report given to RN.
[2020-12-10] MEDS: LACTATED RINGERS 1,000 ML 30 ML IV CONT (13:20)
--- NOTE | 2020-12-10 13:39 | WPDANESEPPF ---
Anes - Initial Pre Proc Eval Procedure: Operation Date: 12/10/20 14:30 Proposed Procedures p Debridement and Washout Sophia Rectal Wound - Danitza Boswell MD Operation Date: 12/12/20 12:30 Proposed Procedures p Esophagogastroduodenoscopy - Renzo Steve DO Date/Time: 12/10/20 13:39 Surgeon: Alma Rosa Salvador PA-C Pre Op Diagnosis: Perirectal wound, Uncontrolled DM Patient Data Age: 50 Gender: F Height: 5 ft Weight: 69.6 kg Last Vital Signs Temp 36.4 C 12/10/20 06:00 Pulse 70 12/10/20 06:00 Resp 18 12/10/20 06:00 BP 127/64 12/10/20 06:00 Pulse Ox 98 12/10/20 06:00 Allergies Allergy/AdvReac Type Severity Reaction Status Date / Time No Known Allergies Allergy Unknown Verified 12/08/20 00:24 Home Medications Medication Instructions Recorded Confirmed Type pen needle, diabetic [BD 12/13/19 12/07/20 History Ultra-Fine Evelyn Pen Needle] amitriptyline 25 mg PO DAILY 03/13/20 12/07/20 History apixaban [Eliquis] 5 mg PO DAILY 06/16/20 12/07/20 History duloxetine 60 mg PO HS 06/16/20 12/07/20 History ezetimibe 10 mg PO DAILY 06/16/20 12/07/20 History losartan 50 mg PO DAILY 06/16/20 12/07/20 History metformin 1,000 mg PO BID 06/16/20 12/08/20 History albuterol sulfate 4 puff INHALATION QID PRN #8 gm 11/28/20 12/07/20 Rx ciprofloxacin HCl 500 mg PO Q12H #20 tablet 11/29/20 12/07/20 Rx metronidazole [Flagyl] 500 mg PO Q8H #30 tablet 11/29/20 12/07/20 Rx insulin glargine [Basaglar KwikPen 24 unit SUBCUT HS 12/07/20 12/07/20 History U-100 Insulin] pregabalin 150 mg PO BID 12/07/20 12/07/20 History sitagliptin [Januvia] 100 mg PO DAILY 12/07/20 12/07/20 History Laboratory Tests 12/09/20 12/09/2012/10/21 17:56 20:50 06:18 WBC 5.1 K/mm3 K/mm3 (4.5-10.0) RBC 4.10 M/mm3 L M/mm3 (4.2-5.4) Hgb 12.0 g/dL g/dL (12.0-15.0) Hct 36.7 % L % (37.0-47.0) MCV 89.5 fl fl (80-100) MCH 29.3 pg pg (26-34) MCHC 32.7 g/dl g/dl (32-36) RDW 12.0 % % (11.5-14.5) Plt Count 301 k/mm3 k/mm3 (150-375) MPV 10.4 fl fl (7.4-10.4) Sodium Potassium Chloride Carbon Dioxide Anion Gap BUN Creatinine Estim Creat Clear Calc Estimated GFR Glucose POC Capillary Glucose 265 mg/dl H mg/dl 303 mg/dl H mg/dl (65-105) (65-105) Calcium 12/10/20 12/10/20 12/10/20 06:18 08:51 11:45 WBC RBC Hgb Hct MCV MCH MCHC RDW Plt Count MPV Sodium 132 mmol/L L mmol/L (137-145) Potassium 4.1 mmol/L mmol/L (3.4-5.0) Chloride 100 mmol/L mmol/L (98-107) Carbon Dioxide 31 mmol/L H mmol/L (22-30) Anion Gap 1 mmol/L L mmol/L (8-16) BUN 10 mg/dL mg/dL (7-17) Creatinine 0.60 mg/dL L mg/dL (0.7-1.0) Estim Creat Clear Calc 85 ml/min ml/min Estimated GFR > 60 (59 - ) Glucose 285 mg/dL H mg/dL (65-105) POC Capillary Glucose 270 mg/dl H mg/dl 276 mg/dl H mg/dl (65-105) (65-105) Calcium 7.9 mg/dL L mg/dL (8.4-10.2) Patient hx anesthesia problems: none Family hx anesthesia problems: none PMFSH Past Medical History Medical History Asthma delivery delivered Diabetes High cholesterol Hx of deep venous thrombosis Hypertension Surgical History Surgical History H/O section History of tonsillectomy Family History Family History Mother Diabetes mellitus Heart disease Acute myocardial infarction Sibling Diabetes mellitus Social H
[2020-12-10] MEDS: BUPIVACAINE HCL 0.5% PF 30 ML VIAL INFILTRATE (14:38)
--- NOTE | 2020-12-10 14:49 | PM.PROC ---
Procedure Note - Detailed Date of procedure: 12/10/20 Pre-op diagnosis: Perirectal wound, Uncontrolled DM Post-op diagnosis: same Procedure performed: Debridement right perirectal wound measuring 12 x 5 x 2 cm, extensive washout Description of procedure: The patient was brought to the operating room and placed in the lateral position. After adequate induction of MAC anesthesia, the patient was prepped and draped in the normal sterile fashion. A time-out was then done to verify the patient's identity, as well as the procedure being performed. I began by localizing the area and around this cavity. I then began debriding the fibrinous tissue at the base of the wound with both sharp and blunt dissection. I did open the superficial portion of the wound slightly both superiorly and inferiorly. Once the area was completely debrided to clean granulating tissue it measured 12 x 5 x 2 cm. No abscess pocket or active infection was noted. Sterile dressing was then placed. Anesthesia: MAC and local Surgeon: Danitza Boswell MD Estimated blood loss (mL): 20 Drains: No Packing: Yes Pathology: none sent Complications: No immediate complications Condition: stable Disposition: PACU Findings: 12 x 5 x 2 cm perirectal wound
--- NOTE | 2020-12-10 15:39 | SUR.PHASEI ---
GLUCOSE 240 AT 1530. MIAH NOTIFIED. SAID TO SEND TO UNIT AND THEY CAN USE SLIDING SCALE FOR WHEN SHE EATS WHEN SHE GETS BACK UPSTAIRS.
--- NOTE | 2020-12-10 16:00 | PC.NURSE ---
Returned from OR per bed. Report received from Vladislav HARRIS.
[2020-12-10] MEDS: SUCRALFATE SUSP 100 MG/ML 10 ML UDC 1000 MG PO ×2 (16:31→21:56)
[2020-12-10 17:26] LABS: Glucose Point of Care 217 (65-105)
[2020-12-10 18:36] LABS: Glucose Point of Care 237 (65-105)
[2020-12-10] MEDS: DULoxetine HCL 60 MG CAPSULE.DR PO (21:55)
[2020-12-10] MEDS: INSULIN GLARGINE (*BKC) 100 UNITS/ML 16 UNITS SUB-Q (21:57)
[2020-12-10 22:12] LABS: Glucose Point of Care 215 (65-105)
[2020-12-10] MEDS: HYDROcodone/acetaminophen (*CRX) 10-325 MG TABLET 1 TAB PO (22:34)
[2020-12-11] MEDS: SUCRALFATE SUSP 100 MG/ML 10 ML UDC 1000 MG PO ×4 (05:24→21:16)
[2020-12-11 05:53] VITALS: BP 119/85; PULSE 82; RESP 18; TEMP 36.6; O2SAT 96
[2020-12-11] MEDS: HYDROcodone/acetaminophen (*CRX) 5-325 MG TABLET 1 TAB PO (05:53)
[2020-12-11 06:24] LABS: Hematocrit 37.4 % (37.0-47.0); Hemoglobin 12.1 g/dL (12.0-15.0); Mean Corpuscular HGB Conc 32.4 g/dl (32-36); Mean Corpuscular Hemoglobin 29.1 pg (26-34); Mean Corpuscular Volume 89.9 fl (80-100); Mean Platelet Volume 10.4 fl (7.4-10.4); Platelet Count Result 301 k/mm3 (150-375); Red Blood Count 4.16 M/mm3 (4.2-5.4)
[2020-12-11 07:00] LABS: Alanine Aminotransferase 15 U/L (4-35); Albumin Level 2.7 g/dL (3.5-5.1); Alkaline Phosphatase 57 U/L (38-126); Anion Gap 2 mmol/L (8-16); Aspartate Amino Transferase 24 U/L (14-36); Bilirubin,Total 0.2 mg/dL (0.2-1.3); Blood Urea Nitrogen 9 mg/dL (7-17); Calcium 8.1 mg/dL (8.4-10.2); Carbon Dioxide 31 mmol/L (22-30); Chloride 100 mmol/L (98-107); Estimated CRCL calculation 85 ml/min; Estimated Glomerular Filt Rate > 60; Glucose 346 mg/dL (65-105); Sodium 133 mmol/L (137-145)
--- NOTE | 2020-12-11 08:15 | WPDANESPN ---
Anes - Prog Note Post-Op Date/Time: 12/11/20 08:15 Cardiovascular status: normal Respiratory status: normal Airway patency: baseline Mental status: baseline Post-Op hydration status: normal Vital Signs: Last Vital Signs Temp 36.6 C 12/11/20 05:53 Pulse 82 12/11/20 05:53 Resp 18 12/11/20 05:53 BP 119/85 12/11/20 05:53 Pulse Ox 96 12/11/20 05:53 Pain Score (VAS): 0 I/O: Intake & Output 12/10/20 12/11/20 12/11/20 23:59 07:59 15:59 Intake Total 340 410 Output Total 500 550 Balance -160 -140 Laboratory Tests 12/11/20 06:06 12/11/20 06:06 12/10/20 12/10/20 12/10/20 08:51 11:45 17:20 WBC RBC Hgb Hct MCV MCH MCHC RDW Plt Count MPV Sodium Potassium Chloride Carbon Dioxide Anion Gap BUN Creatinine Estim Creat Clear Calc Estimated GFR Glucose POC Capillary Glucose 270 H 276 H 217 H Calcium Total Bilirubin Direct Bilirubin AST ALT Alkaline Phosphatase Total Protein Albumin 12/10/20 12/10/20 12/11/20 17:48 21:54 06:06 WBC 5.0 RBC 4.16 L Hgb 12.1 Hct 37.4 MCV 89.9 MCH 29.1 MCHC 32.4 RDW 12.0 Plt Count 301 MPV 10.4 Sodium Potassium Chloride Carbon Dioxide Anion Gap BUN Creatinine Estim Creat Clear Calc Estimated GFR Glucose POC Capillary Glucose 237 H 215 H Calcium Total Bilirubin Direct Bilirubin AST ALT Alkaline Phosphatase Total Protein Albumin 12/11/20 06:06 WBC RBC Hgb Hct MCV MCH MCHC RDW Plt Count MPV Sodium 133 L Potassium 4.0 Chloride 100 Carbon Dioxide 31 H Anion Gap 2 L BUN 9 Creatinine 0.60 L Estim Creat Clear Calc 85 Estimated GFR > 60 Glucose 346 H POC Capillary Glucose Calcium 8.1 L Total Bilirubin 0.2 Direct Bilirubin 0.0 AST 24 ALT 15 Alkaline Phosphatase 57 Total Protein 6.0 L Albumin 2.7 L Microbiology 12/07/20 18:26 Perirectal Abscess Wound Culture - Final Group C Streptococcus Streptococcus constellatus/mil Post-procedural complaints: none Patient Feedback: Patient satisfied with anesthetic care.
[2020-12-11] MEDS: INSULIN ASPART (*BKC) 100 UNITS/ML SUB-Q ×2 (08:21→17:23)
[2020-12-11] MEDS: INSULIN ASPART (*BKC) 100 UNITS/ML 7 UNITS SUB-Q ×3 (08:21→17:24)
[2020-12-11] MEDS: AMITRIPTYLINE HCL 25 MG TABLET PO (08:24)
[2020-12-11] MEDS: EZETIMIBE 10 MG TABLET PO (08:24)
[2020-12-11] MEDS: LOSARTAN POTASSIUM 50 MG TABLET PO (08:25)
[2020-12-11] MEDS: PREGABALIN (*CRX) 75 MG CAPSULE 150 MG PO ×2 (08:25→21:15)
[2020-12-11] MEDS: PANTOPRAZOLE SODIUM IV 40 MG VIAL IV PUSH ×2 (08:25→21:15)
[2020-12-11 08:33] LABS: Glucose Point of Care 325 (65-105)
[2020-12-11 09:39] LABS: Glucose Point of Care 240 (65-105)
--- NOTE | 2020-12-11 10:17 | PM.PNGS ---
Progress Note: A&P Assessment and Plan (1) Perirectal abscess: Code(s): K61.1 - Rectal abscess Status: Acute Assessment and Plan: This wound is not a candidate for wound VAC therapy due to the location/close proximity of the perirectal wound to her anus. Therefore, continue local wound care and antibiotics. We will pack the wound in the area of tunneling twice daily and apply silver gel with gauze/ABD pads for dressing changes. Okay from a surgical standpoint to discharge the patient once okay with other services. The patient will need to have family/friend to help with dressing changes once discharged. F/u with Dr. Boswell in the next 1-2 weeks. (2) Diabetes: Code(s): E11.9 - Type 2 diabetes mellitus without complications Status: Acute Assessment and Plan: Glycemic control is imperative for healing. Glucose still significantly high in the 300's this morning. Management per Hospitalist. Additional Plan Discussed the patient's case with Dr. Boswell. Subjective Subjective Date/Time Seen: 12/11/20 09:17 Post Op day: 1 (Debridement left perirectal wound with extensive washout) Patient reports: no flatus and no bowel movement (since surgery) Interval history: Patient seen this morning. Pain is controlled. No specific complaints today. Patient seen with technical publications writer, Ashley. Review of Systems Review of Systems: All systems reviewed & are unremarkable except as noted in HPI and below Constitutional: Constitutional: Denies chills and Denies fever(s) Exam Const: General: cooperative and no acute distress Orientation/consciousness: patient oriented x3 Skin: Other: 6 x 4 cm open left perirectal wound with majority of the wound bed containing pink healthy tissue, but at the 11 o'clock position there is a 5cm area of tunneling with purulent ulloa drainage and some induration overlying this tunneling. Neuro: General: moves all extremities and no focal motor deficits Extrem: General: no clubbing, cyanosis or edema and no calf tenderness Psych: Mental Status: mental status grossly normal Affect: normal affect Attitude: cooperative Insight: Good insight present (Psych) Judgement: Good judgement present (Psych) Objective Data Vital Signs Vital Signs: Vital Signs - 24 hr 12/10/20 13:11 12/10/20 15:05 12/10/20 15:15 Temperature 96.5 F L 96.9 F L Pulse Rate 62 66 67 Respiratory Rate 14 20 16 Blood Pressure 152/83 H 127/78 108/79 Pulse Oximetry 99 96 94 12/10/20 15:30 12/10/20 15:45 12/10/20 15:51 Temperature Pulse Rate 60 62 64 Respiratory Rate 19 20 20 Blood Pressure 123/69 139/67 140/67 Pulse Oximetry 96 97 100 12/10/20 16:00 12/10/20 20:00 12/10/20 22:00 Temperature 97.1 F L 98.5 F Pulse Rate 62 80 80 Respiratory Rate 16 18 18 Blood Pressure 149/70 H 132/70 Pulse Oximetry 99 96 96 12/11/20 05:53 Temperature 97.8 F Pulse Rate 82 Respiratory Rate 18 Blood Pressure 119/85 Pulse Oximetry 96 Intake/Output Intake/Output: Intake & Output 12/08/20 12/09/20 12/10/20 12/11/20 23:59 23:59 23:59 23:59 Intake Total 3390 1820 890 410 Output Total 900 1700 1100 550 Balance 2490 120 -210 -140 Meds/Results Medications: Active Medications Generic Name Dose Route Start Last Admin Trade Name Freq PRN Reason Stop Dose Admin Acetaminophen 650 mg 12/08/20 15:39 Acetaminophen 325 Mg Tablet PO Q4H PRN pain 1-3 Hydrocodone Bitart/Acetaminophen 1 tab 12/08/20 15:39 12/11/20 05:53 Hydrocodone/Acetaminophen (*Crx) 5-325 Mg Tablet PO 1 tab Q6H PRN Administration Pain Rated 4-6 Hydrocodone Bitart/Acetaminophen 1 tab 12/08/20 15:39 12/10/20 22:34 Hydrocodone/Acetaminophen (*Crx) 10-325 Mg Tablet PO 1 tab Q6H PRN Administration Pain Rated 7-10 Albuterol 4 puff 12/08/20 05:42 Albuterol Sulfate (*Sp) Aerosol 1 Puff INHALATION QID PRN shortness of breath or wheezing Amitriptyline HCl 25 mg 12/09/20 09:00 12/11/20 0
[2020-12-11] MEDS: SILVERGEL (ELTA) 45 ML 1 APPLIC TOPICAL ×2 (12:22→21:15)
[2020-12-11 13:08] LABS: Glucose Point of Care 139 (65-105)
[2020-12-11 14:00] VITALS: BP 123/74; PULSE 72; RESP 16; TEMP 37.1; O2SAT 95
--- NOTE | 2020-12-11 14:23 | P.PNIM_ITS ---
Progress Note: A&P Assessment and Plan (1) Perirectal ulcer: Code(s): K62.6 - Ulcer of anus and rectum Status: Acute Assessment and Plan: * Perirectal wound. Appreciate general surgery recommendations. * POD#1 debridement/washout in OR by Dr Boswell 12/10/20. * Wound culture growing Streptococcus. Continue IV Zosyn for now. * Blood cultures no growth to date. (2) Epigastric pain: Code(s): R10.13 - Epigastric pain Status: Acute Assessment and Plan: * Improving. Suspect may be related to gastritis or peptic ulcer. * Continue Protonix BID and carafate. * Dr Steve plans for EGD tomorrow while she is here. Appreciate his input. (3) Pneumonia due to 2019-nCoV: Code(s): U07.1 - COVID-19; J12.89 - Other viral pneumonia Status: Acute Assessment and Plan: * Resolving, has been about 3 weeks since diagnosis. * No further isolation indicated at this time. * Tolerating room air. Lingering cough may be related to atelectasis. Incentive spirometry encouraged. (4) Chronic anticoagulation: Code(s): Z79.01 - custodial (current) use of anticoagulants Status: Chronic Assessment and Plan: * The patient is known to be chronically anticoagulated for a previous DVT last June * Eliquis held due to surgery. Will hold until after EGD and resume at discharge. (5) Diabetes mellitus: Qualifiers: Diabetes mellitus complication detail: with other skin ulcer Diabetes mellitus complication status: with skin complications Diabetes mellitus assisted insulin use: with assisted use Diabetes mellitus type: type 2 Qualified Code(s): E11.622 - Type 2 diabetes mellitus with other skin ulcer; Z79.4 - custodial (current) use of insulin Code(s): E11.9 - Type 2 diabetes mellitus without complications Status: Chronic Assessment and Plan: * Poorly controlled. Hgb A1c 10.1%. Hold lantus tonight NPO for EGD. * Discussed with patient today the importance of tighter glycemic control to help promote wound healing. * Home regimen includes long-acting insulin, metformin, Januvia. Will consider adjusting insulin regimen at discharge to optimize glycemic control. (6) Hypertension: Qualifiers: Hypertension type: unspecified Qualified Code(s): I10 - Essential (primary) hypertension Code(s): I10 - Essential (primary) hypertension Status: Chronic Assessment and Plan: * Stable, continue home losartan. Subjective Date/time seen: 12/11/20 1330 Interval history: Ms. Stein is a 50yo F admitted for perirectal wound. She was previously having epigastric pain but notes she does not have any abdominal pain, nausea or vomiting today. She denies chest pain or shortness of breath. Pain to wound is well controlled at this time. Review of Systems Review of Systems: All systems reviewed & are unremarkable except as noted in HPI and below Exam Narrative: Exam Narrative: General: Female resting comfortably lying on her left side in bed in no acute distress. HEENT: Normocephalic, EOMI, oral mucosa moist. Cardiovascular: Rate and rhythm are regular. Respiratory: Lungs clear to auscultation bilaterally. Respirations even and non-labored. Tolerating room air. Abdomen: Soft, non-distended, bowel sounds present. Mild t
--- NOTE | 2020-12-11 14:23 | PM.IMPN ---
Progress Note: A&P Assessment and Plan (1) Perirectal ulcer: Code(s): K62.6 - Ulcer of anus and rectum Status: Acute Assessment and Plan: Perirectal wound. Appreciate general surgery recommendations. POD#1 debridement/washout in OR by Dr Boswell 12/10/20. Wound culture growing Streptococcus. Continue IV Zosyn for now. Blood cultures no growth to date. (2) Epigastric pain: Code(s): R10.13 - Epigastric pain Status: Acute Assessment and Plan: Improving. Suspect may be related to gastritis or peptic ulcer. Continue Protonix BID and carafate. Dr Steve plans for EGD tomorrow while she is here. Appreciate his input. (3) Pneumonia due to 2019-nCoV: Code(s): U07.1 - COVID-19; J12.89 - Other viral pneumonia Status: Acute Assessment and Plan: Resolving, has been about 3 weeks since diagnosis. No further isolation indicated at this time. Tolerating room air. Lingering cough may be related to atelectasis. Incentive spirometry encouraged. 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 Will hold until after EGD and resume at discharge. (5) Diabetes mellitus: Qualifiers: Diabetes mellitus complication detail: with other skin ulcer Diabetes mellitus complication status: with skin complications Diabetes mellitus assisted insulin use: with assisted use Diabetes mellitus type: type 2 Qualified Code(s): E11.622 - Type 2 diabetes mellitus with other skin ulcer; Z79.4 - [facility] (current) use of insulin Code(s): E11.9 - Type 2 diabetes mellitus without complications Status: Chronic Assessment and Plan: Poorly controlled. Hgb A1c 10.1%. Hold lantus tonight NPO for EGD. Discussed with patient today the importance of tighter glycemic control to help promote wound healing. Home regimen includes long-acting insulin, metformin, Januvia. Will consider adjusting insulin regimen at discharge to optimize glycemic control. (6) Hypertension: Qualifiers: Hypertension type: unspecified Qualified Code(s): I10 - Essential (primary) hypertension Code(s): I10 - Essential (primary) hypertension Status: Chronic Assessment and Plan: Stable, continue home losartan. Subjective Date/time seen: 12/11/20 1330 Interval history: Ms. Stein is a 50yo F admitted for perirectal wound. She was previously having epigastric pain but notes she does not have any abdominal pain, nausea or vomiting today. She denies chest pain or shortness of breath. Pain to wound is well controlled at this time. Review of Systems Review of Systems: All systems reviewed & are unremarkable except as noted in HPI and below Exam Narrative: Exam Narrative: General: Female resting comfortably lying on her left side in bed in no acute distress. HEENT: Normocephalic, EOMI, oral mucosa moist. Cardiovascular: Rate and rhythm are regular. Respiratory: Lungs clear to auscultation bilaterally. Respirations even and non-labored. Tolerating room air. Abdomen: Soft, non-distended, bowel sounds present. Mild tenderness to palpation of epigastrium without guarding. Extremities: Peripheral pulses intact. No edema. Neuro: No focal neurological deficits. Speech is clear. Skin: Large left perirectal wound with pink tissue and minimal drainage. Objective Data Vital Signs Vital Signs: Last Vital Signs Temp 98.8 F 12/11/20 14:00 Pulse 72 12/11/20 14:00 Resp 16 12/11/20 14:00 BP 123/74
[2020-12-11 17:43] LABS: Glucose Point of Care 201 (65-105)
[2020-12-11 19:30] VITALS: O2SAT 95
[2020-12-11] MEDS: DULoxetine HCL 60 MG CAPSULE.DR PO (21:15)
[2020-12-11] MEDS: HYDROcodone/acetaminophen (*CRX) 10-325 MG TABLET 1 TAB PO (21:16)
[2020-12-11 21:31] LABS: Glucose Point of Care 241 (65-105)
[2020-12-12] VITALS (8 sets, daily range): BP systolic 98–153; BP diastolic 60–82; PULSE 67–71; RESP 13–21; TEMP 36.1–36.6; O2SAT 92–99
[2020-12-12 07:02] LABS: Anion Gap 2 mmol/L (8-16); Blood Urea Nitrogen 12 mg/dL (7-17); Carbon Dioxide 31 mmol/L (22-30); Chloride 98 mmol/L (98-107); Estimated CRCL calculation 85 ml/min; Estimated Glomerular Filt Rate > 60; Glucose 293 mg/dL (65-105); Sodium 131 mmol/L (137-145)
[2020-12-12 08:01] LABS: Glucose Point of Care 282 (65-105)
[2020-12-12 08:01] LABS: Basophils Percent Auto 0.8 % (0.2-1.2); Eosinophils Absolute Auto 0.1 K/mm3 (0-0.3); Eosinophils Percent Auto 3.1 % (0-4.4); Hematocrit 37.2 % (37.0-47.0); Hemoglobin 12.2 g/dL (12.0-15.0); Immature Granulocyte Absolute 0.02 K/mm3 (0.00-0.031); Immature Granulocyte Percent A 0.5 % (0-0.5); Lymphocytes Absolute Auto 1.77 K/mm3 (0.9-3.2); Lymphocytes Percent Auto 45.6 % (18.3-44.2); Mean Corpuscular HGB Conc 32.8 g/dl (32-36); Mean Corpuscular Hemoglobin 29.5 pg (26-34); Mean Corpuscular Volume 89.9 fl (80-100); Mean Platelet Volume 10.4 fl (7.4-10.4); Monocytes Absolute Auto 0.5 K/mm3 (0.1-0.6); Monocytes Percent Auto 12.4 % (2.6-8.5); Neutrophils Absolute Auto 1.5 K/mm3 (1.3-6.7); Neutrophils Percent Auto 37.6 % (45.5-73.1); Platelet Count Result 275 k/mm3 (150-375); Red Blood Count 4.14 M/mm3 (4.2-5.4); Red Cell Distribution Width 12.2 % (11.5-14.5); White Blood Count 3.9 K/mm3 (4.5-10.0)
[2020-12-12] MEDS: INSULIN ASPART (*BKC) 100 UNITS/ML 7 UNITS SUB-Q ×2 (09:49→18:05)
[2020-12-12 11:14] LABS: Glucose Point of Care 149 (65-105)
[2020-12-12] MEDS: LACTATED RINGERS 1,000 ML 150 ML IV CONT (11:26)
--- NOTE | 2020-12-12 11:57 | WPDANESEPPF ---
Anes - Initial Pre Proc Eval Procedure: Operation Date: 12/10/20 14:30 Proposed Procedures p Debridement and Washout Sophia Rectal Wound - Danitza Boswell MD Operation Date: 12/12/20 12:30 Proposed Procedures p Esophagogastroduodenoscopy - Renzo Steve DO Date/Time: 12/12/20 11:57 Surgeon: YSABEL Speasr Pre Op Diagnosis: Perirectal wound, Uncontrolled DM Patient Data Age: 50 Gender: F Height: 5 ft Weight: 69.6 kg Last Vital Signs Temp 97.2 F L 12/12/20 11:18 Pulse 71 12/12/20 11:18 Resp 18 12/12/20 11:18 BP 128/66 12/12/20 11:18 Pulse Ox 99 12/12/20 11:18 Allergies Allergy/AdvReac Type Severity Reaction Status Date / Time No Known Allergies Allergy Unknown Verified 12/12/20 11:12 Home Medications Medication Instructions Recorded Confirmed Type pen needle, diabetic [BD 12/13/19 12/07/20 History Ultra-Fine Evelyn Pen Needle] amitriptyline 25 mg PO DAILY 03/13/20 12/07/20 History apixaban [Eliquis] 5 mg PO DAILY 06/16/20 12/07/20 History duloxetine 60 mg PO HS 06/16/20 12/07/20 History ezetimibe 10 mg PO DAILY 06/16/20 12/07/20 History losartan 50 mg PO DAILY 06/16/20 12/07/20 History metformin 1,000 mg PO BID 06/16/20 12/08/20 History albuterol sulfate 4 puff INHALATION QID PRN #8 gm 11/28/20 12/07/20 Rx ciprofloxacin HCl 500 mg PO Q12H #20 tablet 11/29/20 12/07/20 Rx metronidazole [Flagyl] 500 mg PO Q8H #30 tablet 11/29/20 12/07/20 Rx insulin glargine [Basaglar KwikPen 24 unit SUBCUT HS 12/07/20 12/07/20 History U-100 Insulin] pregabalin 150 mg PO BID 12/07/20 12/07/20 History sitagliptin [Januvia] 100 mg PO DAILY 12/07/20 12/07/20 History Laboratory Tests 12/11/20 12/11/20 12/11/20 12:24 17:20 21:26 WBC RBC Hgb Hct MCV MCH MCHC RDW Plt Count MPV Immature Gran % (Auto) Neut % (Auto) Lymph % (Auto) Barnwell % (Auto) Eos % (Auto) Baso % (Auto) Lymph # (Auto) Barnwell # (Auto) Eos # (Auto) Baso # (Auto) Abs Immat Gran (auto) Absolute Neuts (auto) Absolute Nucleated RBC Nucleated RBC % Sodium Potassium Chloride Carbon Dioxide Anion Gap BUN Creatinine Estim Creat Clear Calc Estimated GFR Glucose POC Capillary Glucose 139 mg/dl H mg/dl 201 mg/dl H mg/dl 241 mg/dl H mg/dl (65-105) (65-105) (65-105) Calcium 12/12/20 12/12/20 12/12/20 06:22 06:22 07:51 WBC 3.9 K/mm3 L K/mm3 (4.5-10.0) RBC 4.14 M/mm3 L M/mm3 (4.2-5.4) Hgb 12.2 g/dL g/dL (12.0-15.0) Hct 37.2 % % (37.0-47.0) MCV 89.9 fl fl (80-100) MCH 29.5 pg pg (26-34) MCHC 32.8 g/dl g/dl (32-36) RDW 12.2 % % (11.5-14.5) Plt Count 275 k/mm3 k/mm3 (150-375) MPV 10.4 fl fl (7.4-10.4) Immature Gran % (Auto) 0.5 % % (0-0.5) Neut % (Auto) 37.6 % L % (45.5-73.1) Lymph % (Auto) 45.6 % H % (18.3-44.2) Barnwell % (Auto) 12.4 % H % (2.6-8.5) Eos % (Auto) 3.1 % % (0-4.4) Baso % (Auto) 0.8 % % (0.2-1.2) Lymph # (Auto) 1.77 K/mm3 K/mm3 (0.9-3.2) Barnwell # (Auto) 0.5 K/mm3 K/mm3 (0.1-0.6) Eos # (Auto) 0.1 K/mm3 K/mm3 (0-0.3) Baso # (Auto) 0.0 K/mm3 K/mm3 (0.0-0.1) Abs Immat Gran (auto) 0.02 K/mm3 K/mm3 (0.00-0.031) Absolute Neuts (auto) 1.5 K/mm3 K/mm3 (1.3-6.7) Absolute Nucleated RBC 0.0 K/mm3 K/mm3 (0.0-0.012) Nucleated RBC % 0.0 % % (0.0-0.2) Sodium 131 mmol/L L mmol/L (137-145) Potassium 4.0 mmol/L mm
--- NOTE | 2020-12-12 12:50 | WPDGICN ---
GI Consult Note Consult date/time: 12/12/20 12:50 HPI: Reason for consultation abdominal pain. This very pleasant lady seen in consultation request the hospitalist and with the patient's permission. The patient was examined and chart review. Impression: A very pleasant lady with abdominal pain. The abdominal pain in the epigastric years swelling may be secondary to peptic ulcer disease. She does have a history of H pylori gastritis. Alternating constipation diarrhea and left lower quadrant pain. This may be secondary to IBS. She does have history adenomatous colon polyps. Asthma. DM. DVT. HLD. HTN. Recommendation: Continue PPI. Fiber and probiotic. Will proceed with EGD. History: Very pleasant lady's well known to myself. She previously has had an EGD back in 2019. Her EGD revealed evidence of H pylori gastritis. She was treated at that time. She also had a colonoscopy back in 2019. She had adenomatous colon polyps. The patient was doing well until just prior to the new year. At that time she was diagnosed as having COVID-19 infection. She also been complaining of Perirectal pain and drainage. patient presented in the emergency room. She underwent incision and drainage of the abscess. She continues to have increasing pain and subsequently was admitted the hospital for evaluation. Patient underwent formal surgical drainage 2 days ago. GI consultations obtain as she has been having frequent epigastric abdominal discomfort. The abdominal discomfort usually improves with eating. She did have some episodes of nausea and vomiting. Hematemesis, indigestion heartburn midnight. NSAID use was denied. Prior to having COVID she did develop some diarrhea. Her bowel habits consist of alternating constipation diarrhea. She does have some left lower quadrant normal discomfort. Physical examination: General: very pleasant patient in no acute distress. HEENT: Head was normocephalic sclerae is clear mouth without masses neck was supple. Heart: Rate rhythm regular without S3 or S4. Lungs: CTA. Abdomen: Soft with no guarding or rigidity. Bowel sounds were active. Neurologic: Cranial nerves 2 through 12 intact. No focal defects. No clonus. Musculoskeletal system: Revealed no joint tenderness or swelling no muscle atrophy. Extremities: Reveal no significant edema. Skin: Warm and dry with normal turgor. Mental status: intact. Patient is alert and oriented. Rectal exam: Deferred. Patient has a bandage over the perianal area. Review of Systems Review of Systems: All systems reviewed & are unremarkable except as noted in HPI and below PMFSH Past Medical History Medical History Adenomatous colon polyp Asthma COVID-19 Diabetes mellitus DVT (deep venous thrombosis) H. pylori infection HLD (hyperlipidemia) HTN (hypertension) Surgical History Surgical History H/O section H/O colonoscopy H/O esophagogastroduodenoscopy History of tonsillectomy Family History Family History Mother Diabetes mellitus Heart disease Acute myocardial infarction Sibling Diabetes mellitus Social History Social History Smoking status: Never smoker Alcohol intake: never Substance use: never Gender identity (if verbalized by the patient): Female Spiritual care concerns: No Meds Home Medications and Allergies Home Medications Medication Instructions Recorded Confirmed Type pen needle, diabetic [BD 12/13/19 12/07/20 History Ultra-Fine Evelyn Pen Needle] amitriptyline 25 mg PO DAILY 03/13/20 12/07/20 History apixaban [Eliquis] 5 mg PO DAILY 06/16/20 12/07/20 History duloxetine 60 mg PO HS 06/16/20 12/07/20 History ezetimibe 10 mg PO DAILY 06/16/20 12/07/20 Histo
[2020-12-12 13:43] LABS: Glucose Point of Care 144 (65-105)
[2020-12-12] MEDS: PANTOPRAZOLE SODIUM IV 40 MG VIAL IV PUSH ×2 (14:58→20:06)
[2020-12-12] MEDS: SUCRALFATE SUSP 100 MG/ML 10 ML UDC 1000 MG PO ×3 (14:58→20:06)
[2020-12-12] MEDS: LOSARTAN POTASSIUM 50 MG TABLET PO (14:58)
[2020-12-12] MEDS: EZETIMIBE 10 MG TABLET PO (14:58)
[2020-12-12] MEDS: AMITRIPTYLINE HCL 25 MG TABLET PO (14:58)
[2020-12-12] MEDS: HYDROcodone/acetaminophen (*CRX) 10-325 MG TABLET 1 TAB PO (15:13)
[2020-12-12] MEDS: SILVERGEL (ELTA) 45 ML 1 APPLIC TOPICAL ×2 (15:30→20:15)
--- NOTE | 2020-12-12 15:33 | P.PNIM_ITS ---
Progress Note: A&P Assessment and Plan (1) Perirectal ulcer: Code(s): K62.6 - Ulcer of anus and rectum Status: Acute Assessment and Plan: * Perirectal wound. Appreciate general surgery recommendations. * POD#2 debridement/washout in OR by Dr Boswell 12/10/20. * Wound culture growing Streptococcus. Continue IV Zosyn for now. * Blood cultures no growth to date. (2) Epigastric pain: Code(s): R10.13 - Epigastric pain Status: Acute Assessment and Plan: * Improving. Suspect may be related to gastritis or peptic ulcer. * Continue Protonix BID and carafate. * Dr Steve attempted EGD today, unable to be finished due to retained food in stomach. Plans to re-attempt EGD tomorrow after 24 hr clear liquids only. NPO at midnight for same. Appreciate his input. (3) Pneumonia due to 2019-nCoV: Code(s): U07.1 - COVID-19; J12.89 - Other viral pneumonia Status: Acute Assessment and Plan: * Resolving, has been about 3 weeks since diagnosis. * No further isolation indicated at this time. * Tolerating room air. Lingering cough may be related to atelectasis and healing COVID. Incentive spirometry encouraged. 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 Will hold until after EGD and resume at discharge. 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 Hgb A1c 10.1%. Hold lantus again CORNELIO kapoorO for EGD. * Discussed with patient the importance of tighter glycemic control to help promote wound healing. * Home regimen includes long-acting insulin, metformin, Januvia. Will consider adjusting insulin regimen at discharge to optimize glycemic control. (6) Hypertension: Qualifiers: Hypertension type: unspecified Qualified Code(s): I10 - Essential (primary) hypertension Code(s): I10 - Essential (primary) hypertension Status: Chronic Assessment and Plan: * BPs on higher end today may be related to pain. Continue home losartan. Monitor BP and adjust treatment as needed. Subjective Date/time seen: 12/12/20 1445 Interval history: Ms. Stein is a 50yo F admitted for perirectal wound. EGD was started and not able to be finished due to food retained in the stomach. She describes again some epigastric tenderness which she says is mild. She is hungry. She denies nausea or vomiting. She denies chest pain or shortness of breath. She has a mild lingering nonproductive cough. Pain to wound is decently controlled at present. Review of Systems Review of Systems: All systems reviewed & are unremarkable except as noted in HPI and below Exam Narrative: Exam Narrative: Jean Marie
--- NOTE | 2020-12-12 15:33 | PM.IMPN ---
Progress Note: A&P Assessment and Plan (1) Perirectal ulcer: Code(s): K62.6 - Ulcer of anus and rectum Status: Acute Assessment and Plan: Perirectal wound. Appreciate general surgery recommendations. POD#2 debridement/washout in OR by Dr Boswell 12/10/20. Wound culture growing Streptococcus. Continue IV Zosyn for now. Blood cultures no growth to date. (2) Epigastric pain: Code(s): R10.13 - Epigastric pain Status: Acute Assessment and Plan: Improving. Suspect may be related to gastritis or peptic ulcer. Continue Protonix BID and carafate. Dr Steve attempted EGD today, unable to be finished due to retained food in stomach. Plans to re-attempt EGD tomorrow after 24 hr clear liquids only. NPO at midnight for same. Appreciate his input. (3) Pneumonia due to 2019-nCoV: Code(s): U07.1 - COVID-19; J12.89 - Other viral pneumonia Status: Acute Assessment and Plan: Resolving, has been about 3 weeks since diagnosis. No further isolation indicated at this time. Tolerating room air. Lingering cough may be related to atelectasis and healing COVID. Incentive spirometry encouraged. (4) Chronic anticoagulation: Code(s): Z79.01 - joint terminal attack controller (current) use of anticoagulants Status: Chronic Assessment and Plan: The patient is known to be chronically anticoagulated for a previous DVT last June Eliquis held due to surgery. Will hold until after EGD and resume at discharge. (5) Diabetes mellitus: Qualifiers: Diabetes mellitus complication detail: with other skin ulcer Diabetes mellitus complication status: with skin complications Diabetes mellitus terminal operations manager insulin use: with terminal operations manager use Diabetes mellitus type: type 2 Qualified Code(s): E11.622 - Type 2 diabetes mellitus with other skin ulcer; Z79.4 - half-way (current) use of insulin Code(s): E11.9 - Type 2 diabetes mellitus without complications Status: Chronic Assessment and Plan: Poorly controlled. Hgb A1c 10.1%. Hold lantus again NOLAN kapoor for EGD. Discussed with patient the importance of tighter glycemic control to help promote wound healing. Home regimen includes long-acting insulin, metformin, Januvia. Will consider adjusting insulin regimen at discharge to optimize glycemic control. (6) Hypertension: Qualifiers: Hypertension type: unspecified Qualified Code(s): I10 - Essential (primary) hypertension Code(s): I10 - Essential (primary) hypertension Status: Chronic Assessment and Plan: BPs on higher end today may be related to pain. Continue home losartan. Monitor BP and adjust treatment as needed. Subjective Date/time seen: 12/12/20 1445 Interval history: Ms. Stein is a 50yo F admitted for perirectal wound. EGD was started and not able to be finished due to food retained in the stomach. She describes again some epigastric tenderness which she says is mild. She is hungry. She denies nausea or vomiting. She denies chest pain or shortness of breath. She has a mild lingering nonproductive cough. Pain to wound is decently controlled at present. Review of Systems Review of Systems: All systems reviewed & are unremarkable except as noted in HPI and below Exam Narrative: Exam Narrative: General: Female resting comfortably lying on her left side in bed in no acute distress. HEENT: Normocephalic, EOMI, oral mucosa moist. Cardiovascular: Rate and rhythm are regular. Respiratory: Lungs clear to auscultation bilaterally. Respirations even and non-labored. Tolerating room air. Abdomen: Soft, non-distended, bowel sounds present. Tenderness to palpation of epigastrium without guarding.
[2020-12-12 16:45] LABS: Glucose Point of Care 191 (65-105)
[2020-12-12] MEDS: PREGABALIN (*CRX) 75 MG CAPSULE 150 MG PO (20:06)
[2020-12-12] MEDS: DULoxetine HCL 60 MG CAPSULE.DR PO (20:06)
[2020-12-12 20:21] LABS: Glucose Point of Care 208 (65-105)
[2020-12-13] VITALS (7 sets, daily range): BP systolic 88–133; BP diastolic 57–94; PULSE 67–76; RESP 14–20; TEMP 36.2–36.7; O2SAT 93–100
[2020-12-13 06:33] LABS: Glucose Point of Care 226 (65-105)
[2020-12-13 06:48] LABS: Anion Gap 2 mmol/L (8-16); Blood Urea Nitrogen 10 mg/dL (7-17); Calcium 8.2 mg/dL (8.4-10.2); Carbon Dioxide 32 mmol/L (22-30); Chloride 100 mmol/L (98-107); Estimated CRCL calculation 85 ml/min; Estimated Glomerular Filt Rate > 60; Glucose 248 mg/dL (65-105); Magnesium 1.6 mg/dL (1.6-2.3); Potassium 3.9 mmol/L (3.4-5.0); Sodium 134 mmol/L (137-145)
[2020-12-13 08:03] LABS: Glucose Point of Care 189 (65-105)
[2020-12-13] MEDS: INSULIN ASPART (*BKC) 100 UNITS/ML 7 UNITS SUB-Q ×2 (09:05→13:56)
[2020-12-13] MEDS: SILVERGEL (ELTA) 45 ML 1 APPLIC TOPICAL (09:06)
[2020-12-13] MEDS: PANTOPRAZOLE SODIUM IV 40 MG VIAL IV PUSH (09:10)
[2020-12-13 09:18] LABS: Glucose Point of Care 202 (65-105)
[2020-12-13] MEDS: MAGNESIUM SULF 2 GM/WATER 50ML 2 GM/50 ML BAG IVPB (09:49)
--- NOTE | 2020-12-13 10:50 | WPDANESPN ---
Anes - Prog Note Post-Op Date/Time: 12/13/20 10:50 Cardiovascular status: normal Respiratory status: normal Airway patency: baseline Mental status: baseline Post-Op hydration status: normal Vital Signs: Last Vital Signs Temp 36.5 C 12/13/20 06:00 Pulse 67 12/13/20 06:00 Resp 20 12/13/20 06:00 BP 131/84 12/13/20 06:00 Pulse Ox 93 12/13/20 06:00 Pain Score (VAS): 0/10. Patient resting in bed at time of assessment, appears comfortable. I/O: Intake & Output 12/12/20 12/13/20 12/13/20 23:59 07:59 15:59 Intake Total 400 450 Output Total 800 1300 Balance -400 -850 Laboratory Tests 12/12/20 06:22 12/13/20 06:23 12/12/20 12/12/20 12/12/20 11:06 13:41 16:34 Sodium Potassium Chloride Carbon Dioxide Anion Gap BUN Creatinine Estim Creat Clear Calc Estimated GFR Glucose POC Capillary Glucose 149 H 144 H 191 H Calcium Magnesium 12/12/20 12/13/20 12/13/20 20:16 06:22 06:23 Sodium 134 L Potassium 3.9 Chloride 100 Carbon Dioxide 32 H Anion Gap 2 L BUN 10 Creatinine 0.60 L Estim Creat Clear Calc 85 Estimated GFR > 60 Glucose 248 H POC Capillary Glucose 208 H 226 H Calcium 8.2 L Magnesium 1.6 12/13/20 12/13/20 08:01 09:04 Sodium Potassium Chloride Carbon Dioxide Anion Gap BUN Creatinine Estim Creat Clear Calc Estimated GFR Glucose POC Capillary Glucose 189 H 202 H Calcium Magnesium Post-procedural complaints: none Patient Feedback: Patient satisfied with anesthetic care.
[2020-12-13 11:02] LABS: Glucose Point of Care 155 (65-105)
[2020-12-13] MEDS: LACTATED RINGERS 1,000 ML 150 ML IV CONT (11:02)
--- NOTE | 2020-12-13 11:44 | PC.NURSE ---
Patient to GI lab per stretcher at 1050.
--- NOTE | 2020-12-13 12:23 | WPDHPUPDATE1 ---
History and Physical Update Update Date/Time: 12/13/20 12:23 History and Physical has been reviewed, including an updated exam of the patient. There are NO changes in the patient's condition. Risks, benefits, and alternatives have been discussed and questions answered. Patient agrees to proceed with procedure.
[2020-12-13] MEDS: LOSARTAN POTASSIUM 50 MG TABLET PO (13:47)
[2020-12-13] MEDS: EZETIMIBE 10 MG TABLET PO (13:47)
[2020-12-13] MEDS: SUCRALFATE SUSP 100 MG/ML 10 ML UDC 1000 MG PO (13:47)
[2020-12-13] MEDS: PREGABALIN (*CRX) 75 MG CAPSULE 150 MG PO (13:47)
[2020-12-13] MEDS: AMITRIPTYLINE HCL 25 MG TABLET PO (13:47)
[2020-12-13 14:01] LABS: Glucose Point of Care 128 (65-105)
--- NOTE | 2020-12-13 19:18 | PM.DS ---
DS: Admitting Diagnosis Admitting Diagnosis Admitting Diagnosis: Perirectal wound DS: Discharge Diagnosis Discharge Diagnosis (1) Perirectal ulcer: Code(s): K62.6 - Ulcer of anus and rectum Status: Acute Assessment and Plan: Date of Admission 12/07/20 Date of Discharge/DOS 12/13/20 Ms. Stein is a 50yo F with history of recovering from COVID, history of DVT on anticoagulation with Eliquis, hypertension, and poorly controlled insulin-dependent type 2 diabetes mellitus who presented to the ED for evaluation of epigastric pain with nausea and vomiting, also noted to have a wound in perirectal region. General surgery was consulted regarding perirectal wound and she underwent surgical debridement/washout in the OR with Dr Boswell 12/10/20. She was treated with several days of IV zosyn and discharged with oral Augmentin to complete a total 10-day course, see below. She is a patient of Dr Steve's thus he was consulted to offer recommendations regarding her epigastric pain. She underwent attempted EGD 12/12/[address] Steve, exam terminated as there was retained food in stomach. She was then kept on clear liquids diet until the following day when Dr Steve performed EGD 12/13/20 which demonstrated some mild gastritis. She was treated with PPI and carafate and showed improvement. Hgb A1c is 10%. She was educated on the importance of blood sugar control to help promote wound healing. She will continue her home insulin and oral hyopglycemics regimen and additional sliding scale insulin with Novolog pen was added. Overall she was hemodynamically stable for discharge 12/13/20 with a short-interval follow up with our wound clinic and instructions for daily dressing changes/local wound care. Encouraged follow up with PCP for diabetes management. Perirectal wound. Discharged POD#3 debridement/washout in OR by Dr Boswell 12/10/20. Wound culture growing Streptococcus. IV Zosyn, discharge with oral abx 10-day total. Blood cultures no growth to date. (2) Epigastric pain: Code(s): R10.13 - Epigastric pain Status: Acute Assessment and Plan: Improving. EGD 12/13/20 demonstrates mild gastritis. She is tolerating a diet prior to discharge. Continue PPI. (3) Pneumonia due to 2019-nCoV: Code(s): U07.1 - COVID-19; J12.89 - Other viral pneumonia Status: Acute Assessment and Plan: Resolving, has been about 3 weeks since diagnosis. No further isolation indicated at this time. Tolerating room air. Lingering cough may be related to atelectasis and healing COVID. Incentive spirometry encouraged. 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 (5) Diabetes mellitus: Qualifiers: Diabetes mellitus complication detail: with other skin ulcer Diabetes mellitus complication status: with skin complications Diabetes mellitus emt intermediate insulin use: with emt intermediate use Diabetes mellitus type: type 2 Qualified Code(s): E11.622 - Type 2 diabetes mellitus with other skin ulcer; Z79.4 - termite inspector (current) use of insulin Code(s): E11.9 - Type 2 diabetes mellitus without complications Status: Chronic Assessment and Plan: Poorly controlled. Hgb A1c 10.1%. Hold lantus again antwon NPO for EGD. Discussed with patient the importance of tighter glycemic control to help promote wound healing and checking BG regularly. Home regimen includes long-acting insulin, metformin, Januvia. Novolog sliding scale with meals added at discharge to optimize glycemic control. ___
== END 2020-12-13 17:05 | disposition home or self-care (01) | DRG 254 ==
LOC: ANHED 21:05 → ANH3MEDSUR 12-08 00:28
PROVIDERS: Emergency Medicine; Internal Medicine Gastroenterology; Physician Assistant; Surgery; Admitting Provider Family Medicine; Emergency Provider Emergency Medicine; PCP Physician Assistant; Visit Provider Physician Assistant
PROC: 0HB9XZZ Excision of Perineum Skin, External Approach (ICD-10-PCS; CPT 46040; principal; 2020-12-10 14:30)
PROC: 0DJ08ZZ Inspection of Upper Intestinal Tract, Via Natural or Artificial Opening Endoscopic (ICD-10-PCS; CPT 43235; principal; 2020-12-12 12:30)
DX: K62.6 Ulcer of anus and rectum (principal); K61.1 Rectal abscess; U07.1 COVID-19; J12.82 Pneumonia due to coronavirus disease 2019; K29.50 Unspecified chronic gastritis without bleeding; E11.622 Type 2 diabetes mellitus with other skin ulcer; E11.43 Type 2 diabetes mellitus with diabetic autonomic (poly)neuropathy; K31.84 Gastroparesis; E11.65 Type 2 diabetes mellitus with hyperglycemia; I10 Essential (primary) hypertension; R10.13 Epigastric pain; J98.11 Atelectasis; B95.4 Other streptococcus as the cause of diseases classified elsewhere; E66.9 Obesity, unspecified; Z68.30 Body mass index [BMI] 30.0-30.9, adult; Z79.01 Long term (current) use of anticoagulants; Z79.4 Long term (current) use of insulin; Z86.718 Personal history of other venous thrombosis and embolism
CPT/HCPCS: 36415; 71275; 74177; 80048; 80053; 80076; 81001; 81025; 82948; 83036; 83605; 83690; 83735; 85025; 85027; 85610; 85652; 85730; 86140; 87040; 87070; 87077; 87081; 87086; 87147; 87205; 88305; 88342; 96365; 96375; 99291; A9270; C9113; J0131; J1815; J2001; J2250; J2270; J2543; J2704; J3010; J3475; J7030; J7120; Q9967

== ENCOUNTER 2021-01-23 07:36 | Outpatient (RCR) | payer OTHER, SELFPAY ==
[2020-12-19 12:28] VITALS: BMI 29.9
--- NOTE | 2020-12-20 16:20 | WPDWOUNDNOTE ---
Wound Care Note Date/Time: 12/19/20 10:30 History: COPD Poorly controlled DM type II HTN Hx DVT on anticoagulation Wound history: Ms. Stein is a 50yo F who was recently hospitalized for abdominal pain, perirectal wound, and uncontrolled diabetes. She underwent a debridement right perirectal wound on 12/10/[address] Boswell. She was treated while inpatient regarding glycemic control as well. She was given IV antibiotics and prescribed a week of oral antibiotics on discharge. Local wound care with packing 1/4 inch iodoform gauze and silver gel with gauze/ABD pad was done twice daily. On discharge, she was planning on doing dressing changes at home. She now presents to the wound clinic about 1 week after discharge for wound follow-up. She denies any issues with her wound. She has been using some pain medication as needed, just at night for comfort. She reports still having a few more doses of the oral antibiotic. No fever. No issues with her wound. She packed it for a few days and then was just putting silver gel and a dry dressing over it daily. No other complaints. Wound approximation: No Wound width: 5 cm Wound length: 3.5 cm Wound depth: 1.5 cm Drainage: Serosanguineous, scant amount Surrounding tissue appearance: Healthy. No induration, erythema, or warmth. Tunneling: None Percentage granulation tissue: 100% Treatment/Procedures: Dressing change. Dressings: Silver gel and gauze/abd pad. Assessment and Plan Assessment and plan (1) Perirectal abscess: Code(s): K61.1 - Rectal abscess Status: Acute Assessment and Plan: Finish the remaining antibiotics. The wound is healing very well with no further areas of tunneling or purulent drainage. Will switch to just silver gel dressing changes daily. Instructed her to wash over the wound daily and as needed after bowel movements. 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 Will discuss return to work next week. Minimize pressure to this area when sitting in a chair. F/u with Dr. Boswell next week. (2) Diabetes mellitus: Qualifiers: Diabetes mellitus complication detail: with other skin ulcer Diabetes mellitus complication status: with skin complications Diabetes mellitus intermediate insulin use: with parts counterman use Diabetes mellitus type: type 2 Qualified Code(s): E11.622 - Type 2 diabetes mellitus with other skin ulcer; Z79.4 - intermediate (current) use of insulin Code(s): E11.9 - Type 2 diabetes mellitus without complications Status: Chronic Assessment and Plan: Patient reports being compliant with her medication and her glucose has been running anywhere from 100-200. Encouraged tight glycemic control and recommended f/u with PCP for continued management. (3) Chronic anticoagulation: Code(s): Z79.01 - intermediate (current) use of anticoagulants Status: Chronic (4) Hypertension: Qualifiers: Hypertension type: unspecified Qualified Code(s): I10 - Essential (primary) hypertension Code(s): I10 - Essential (primary) hypertension Status: Chronic Review of Systems Review of Systems: All systems reviewed & are unremarkable except as noted in HPI and below Constitutional: Constitutional: Reports as per HPI, Reports no additional constitutional complaints, Denies chills and Denies fever(s) Cardiovascular: Cardiovascular: Reports no additional cardiovascular complaints and Denies chest pain Respiratory: Respiratory: Reports no additional respiratory complaints, Denies cough and Denies dyspnea Gastrointestinal: Gastrointestinal: Reports no additional gastrointestinal complaints, Denies abdominal pain, Denies bloating, Denies change in bowel habits, Denies nausea and Denies vomiting Integumentary/Breasts: Skin/Breast: Reports system reviewed and no additional complaints, except as docu and Reports as per HPI Neurologic: Reports system reviewed and no additiona
--- NOTE | 2020-12-26 13:08 | WPDWOUNDNOTE ---
Wound Care Note Date/Time: 12/26/20 13:08 Pt seen and examined. Pt reports wound seems to be healing well, no s/s active infection. Pt reports continued pain in area especially c drsg changes. Assessment and Plan Assessment and plan (1) Perirectal abscess: Code(s): K61.1 - Rectal abscess Status: Acute Assessment and Plan: cont current wound mgmt, ok to dc all abx, will refill pain rx Review of Systems Review of Systems: All systems reviewed & are unremarkable except as noted in HPI and below Exam Const: General: cooperative, comfortable and no acute distress Resp: Auscultation: clear to auscultation bilaterally Cardio: Rate: regular rate Rhythm: regular rhythm Skin: Other: perirectal wound - 3.1 x 5 x .7, no tunneling noted, good granulation base, no s/s active infection
--- NOTE | 2021-01-02 10:12 | WPDWOUNDNOTE ---
Wound Care Note Date/Time: 01/02/21 10:12 reports no issues, wound seems to be healing well, no s/s infection Assessment and Plan Assessment and plan (1) Perirectal abscess: Code(s): K61.1 - Rectal abscess Status: Acute Assessment and Plan: doing well, cont local wound care, ok to rtw next wk, f/u in wound care clinic in 3 wks Review of Systems Review of Systems: All systems reviewed & are unremarkable except as noted in HPI and below Exam Const: General: cooperative, comfortable and no acute distress Resp: Auscultation: clear to auscultation bilaterally Cardio: Rate: regular rate Rhythm: regular rhythm GI: Inspection: normal to inspection, no edema and non-distended GI Palp: Yes Soft to palpation and No Tenderness to palpation present (GI) Skin: Other: perirectal wound - now measures 2.4x5x0.3 cm c no tunneling, good granulation tissue, no s/s active infection
--- NOTE | 2021-01-23 10:15 | WPDWOUNDNOTE ---
Wound Care Note Date/Time: 01/23/21 10:15 Pt reports area seems to be almost completely healed. Pt denies any s/s infection. She reports some pain c BMs, straining. Assessment and Plan Assessment and plan (1) Perirectal abscess: Code(s): K61.1 - Rectal abscess Status: Acute Assessment and Plan: wound largely healed, cont local wound care, will refill pain meds, f/u prn Review of Systems Review of Systems: All systems reviewed & are unremarkable except as noted in HPI and below Exam Const: General: cooperative, comfortable and no acute distress Resp: Auscultation: clear to auscultation bilaterally Cardio: Rate: regular rate Rhythm: regular rhythm GI: Inspection: normal to inspection GI Palp: Yes Soft to palpation and No Tenderness to palpation present (GI) Skin: Other: perirectal wound measures .9x.3x.1, no s/s infection Neuro: General: patient oriented x3
== END 2021-03-04 08:15 | disposition home or self-care (01) ==
LOC: ANHWOC 07:36
PROVIDERS: PCP Physician Assistant; Visit Provider Surgery
DX: Z48.817 Encounter for surgical aftercare following surgery on the skin and subcutaneous tissue (principal); L02.31 Cutaneous abscess of buttock
CPT/HCPCS: 99212; G0463

== ENCOUNTER 2021-03-26 15:59 | Emergency (ER) | payer OTHER, SELFPAY ==
--- NOTE | ~2021-03-26 | CT_ITS ---
EXAMINATION: CTA chest PE abdomen pel DATE: 03/26/2021 19:30 INDICATION: Chest pain and shortness of breath. TECHNIQUE: Computed tomography (CT) pulmonary angiogram of the chest was performed with 100 mL Omnipa que-350 intravenous contrast. Additional 3D reconstructions utilizing coronal maximum intensity proje ction (MIP) were performed. CT of the abdomen and pelvis was performed with intravenous contrast util izing the same contrast bolus following a short delay. Automated exposure control and iterative recon struction technique were employed. The dose-length product was 1039.24 mGy-cm. COMPARISON: 12/07/2020 FINDINGS: Chest: Excellent contrast opacification of the pulmonary arteries. There is mild streak artifact from dense contrast in the superior vena cava and right atrium. Mild scattered respiratory motion artifact. Ther e is a linear central filling defect extending along the anterobasilar segmental pulmonary artery of the right lower lobe which is seen only on the pulmonary arterial phase but is not evident on the sub sequent more delayed phase imaging of the abdomen and pelvis which nonetheless demonstrates relativel y good contrast opacification and would favor linear streak artifact over pulmonary embolism. No defi nitive pulmonary arterial filling defects identified. Mosaic attenuation in the bilateral lower lobes consistent with atelectasis and mild subsegmental air trapping related to small airway disease. No e vident septal line thickening to suggest pulmonary edema. No pneumonia, pleural effusion or pneumotho rax. Heart size is normal. 3.6 x 1.8 x 2.2 cm near fluid attenuation lesion along the pericardium bet ween the right ventricle and the right pulmonary outflow tract without other evident pericardial effu gretta suggesting a pericardial cyst. Thoracic aorta is normal in caliber with no dissection. There is diffuse wall thickening of the mid to distal esophagus which could be seen with esophagitis. No patho logically enlarged thoracic lymphadenopathy. Abdomen/pelvis: Liver, gallbladder, spleen, pancreas, bilateral adrenal glands and kidneys are normal. Bowels includi ng the appendix are normal. Bladder, uterus and bilateral adnexa are unremarkable. No free intraperit warren gas or fluid. No pathologically enlarged abdominal or pelvic lymphadenopathy. Bones are unremar kable. IMPRESSION: 1. Linear low attenuation likely streak artifact in the anterobasilar pulmonary artery of the right l ower lobe. No definitive pulmonary embolus. 2. Diffuse wall thickening in the mid to distal esophagus suggestive of esophagitis which could be du e to reflux or infection. 3. 3.6 x 1.8 x 2.2 cm near fluid attenuation lesion along the pericardium most likely representing a pericardial cyst. 4. No acute intra-abdominal/pelvic process.. Reviewed, dictated and finalized at location A. IMPRESSION: 1. Linear low attenuation likely streak artifact in the anterobasilar pulmonary artery of the right lower lobe. No definitive pulmonary embolus. 2. Diffuse wall thickening in the mid to distal esophagus suggestive of esophag itis which could be due to reflux or infection. 3. 3.6 x 1.8 x 2.2 cm near fluid attenuation lesion along the pericardium most likely representing a pericardial cyst. 4. No acute intra-abdominal/pelvic process..
[2021-03-26 16:27] VITALS: BP 144/90; PULSE 90; RESP 19; TEMP 36.1; O2SAT 100
--- NOTE | 2021-03-26 16:27 | ECG_ITS ---
Measurements Intervals [place] Rate: 89 P: 3 CO: 162 QRS: -20 QRSD: 87 T: 6 QT: 348 QTc: 426 Interpretive Statements SINUS RHYTHM INFERIOR INFARCT, AGE INDETERMINATE EXTENSIVE ANTERIOR INFARCT, AGE INDETERMINATE ABNORMAL ECG Electronically Signed On 03-27-2021 14:22:17 CDT by Satya Mccrary D.O.
[2021-03-26 16:38] LABS: Basophils Percent Auto 0.5 % (0.2-1.2); Eosinophils Absolute Auto 0.1 K/mm3 (0-0.3); Eosinophils Percent Auto 2.3 % (0-4.4); Hematocrit 43.2 % (37.0-47.0); Hemoglobin 14.8 g/dL (12.0-15.0); Immature Granulocyte Absolute 0.01 K/mm3 (0.00-0.031); Immature Granulocyte Percent A 0.2 % (0-0.5); Lymphocytes Absolute Auto 2.33 K/mm3 (0.9-3.2); Lymphocytes Percent Auto 38.6 % (18.3-44.2); Mean Corpuscular HGB Conc 34.3 g/dl (32-36); Mean Corpuscular Hemoglobin 29.7 pg (26-34); Mean Corpuscular Volume 86.7 fl (80-100); Mean Platelet Volume 11.1 fl (7.4-10.4); Monocytes Absolute Auto 0.4 K/mm3 (0.1-0.6); Monocytes Percent Auto 7.3 % (2.6-8.5); Neutrophils Absolute Auto 3.1 K/mm3 (1.3-6.7); Neutrophils Percent Auto 51.1 % (45.5-73.1); Platelet Count Result 174 k/mm3 (150-375); Red Blood Count 4.98 M/mm3 (4.2-5.4)
[2021-03-26 16:53] LABS: Alanine Aminotransferase 17 U/L (4-35); Albumin Level 4.1 g/dL (3.5-5.1); Alkaline Phosphatase 84 U/L (38-126); Anion Gap 11 mmol/L (8-16); Aspartate Amino Transferase 23 U/L (14-36); Bilirubin,Total 0.2 mg/dL (0.2-1.3); Blood Urea Nitrogen 21 mg/dL (7-17); Calcium 9.6 mg/dL (8.4-10.2); Carbon Dioxide 23 mmol/L (22-30); Chloride 96 mmol/L (98-107); Estimated CRCL calculation 66 ml/min; Estimated Glomerular Filt Rate > 60; Glucose 536 mg/dL (65-105); Lipase 70 U/L (23-300); Potassium 4.4 mmol/L (3.4-5.0); Sodium 130 mmol/L (137-145)
[2021-03-26 16:54] LABS: Add Urine Microscopic? YES; Appearance Urine Clear (Clear); Bilirubin Urine Negative (Negative); Blood Urine Negative (Negative); Color Urine Straw (Yellow); Glucose Urine UA 3+ mg/dL (Negative); Ketones Urine Negative (Negative); Leukocyte Esterase Ur Negative LEU/UL (Negative); Nitrate Urine Negative (Negative); Protein Urine Negative (Negative); RBC Urine 0-2 /hpf (0-2); Squamous Epithelial Cell Urine Rare /hpf (Few); Urobilinogen Urine Negative mg/dL (<2.0); WBC Urine 0-3 /hpf
[2021-03-26 16:57] LABS: Specific Grav Ur 1.031 (1.001-1.035)
--- NOTE | 2021-03-26 17:59 | ED.ABDPAIN ---
HPI - Abdominal Pain General Chief Complaint: Abdominal Pain Stated Complaint: abdominal pain Time Seen by Provider: 03/26/21 17:39 Source: patient Mode of arrival: ambulatory Limitations: no limitations History of Present Illness HPI narrative: This is a 50 year old female that presents to the ER for epigastric abdominal pain x 2 weeks. Reports the pain radiates into her chest and is burning in nature. She has been taking her medications without relief. Associated with nausea, vomiting and shortness of breath. Denies fever, cough, diarrhea, or dysuria. Related Data Home Medications Medication Instructions Recorded Confirmed amitriptyline 25 mg PO DAILY 03/13/20 12/19/20 Eliquis 5 mg PO DAILY 06/16/20 12/19/20 duloxetine 60 mg PO HS 06/16/20 12/19/20 ezetimibe 10 mg PO DAILY 06/16/20 12/19/20 losartan 50 mg PO DAILY 06/16/20 12/19/20 metformin 1,000 mg PO BID 06/16/20 12/19/20 Basaglar KwikPen U-100 Insulin 24 unit SUBCUT HS 12/07/20 12/19/20 Januvia 100 mg PO DAILY 12/07/20 12/19/20 pregabalin 150 mg PO BID 12/07/20 12/19/20 Allergies Allergy/AdvReac Type Severity Reaction Status Date / Time No Known Allergies Allergy Unknown Verified 12/12/20 11:12 Review of Systems Review of Systems: Narrative: CONSTITUTIONAL: Denies fever CARDIOVASCULAR: Reports chest pain. Denies edema. RESPIRATORY: Reports dyspnea. GASTROINTESTINAL: Denies abdominal pain, nausea, vomiting. Denies diarrhea. GENITOURINARY: Denies dysuria All systems reviewed & are unremarkable except as noted in HPI and below PMFSH Past Medical History Medical History (Updated 03/26/21 @ 21:12 by Ijeoma Aj PA-C) Adenomatous colon polyp Asthma COVID-19 Diabetes mellitus DVT (deep venous thrombosis) Gastroparesis H. pylori infection HLD (hyperlipidemia) HTN (hypertension) Neuropathy Surgical History Surgical History H/O section H/O colonoscopy H/O esophagogastroduodenoscopy History of tonsillectomy Family History Family History Mother Diabetes mellitus Heart disease Acute myocardial infarction Sibling Diabetes mellitus Social History Social History Smoking status: Never smoker Alcohol intake: never Substance use: never Gender identity (if verbalized by the patient): Female Spiritual care concerns: No Exam Narrative: Exam Narrative: GENERAL: Well-appearing, well-nourished, and in no acute distress. HEAD: Normocephalic, atraumatic. EYES: EOMI. ENT: Nares clear, no rhinorrhea or epistaxis. Mucous membranes moist. Oropharynx without tonsillar hypertrophy exudate or other lesions. Bilateral TMs pearly diehl non-bulging NECK: Supple. No adenopathy or masses. CHEST: Clear to auscultation. No respiratory distress. No wheezes rales or rhonchi HEART: Regular rate and rhythm. No murmur heard. Normal peripheral pulses. ABDOMEN: Soft, nondistended, normal active bowel sounds. Tender to palpation in the epigastrium, without guarding EXTREMITIES: Normal range of motion. No edema. SKIN: Warm, dry, no rash. NEURO: No focal deficits. Alert and oriented x3. PSYCH: Normal mood and affect Course Vital Signs Vital signs: Vital Signs Temperature 97.0 F L 03/26/21 16:27 Pulse Rate 90 03/26/21 16:27 Respiratory Rate 19 03/26/21 16:27 Blood Pressure 144/90 H 03/26/21 16:27 Pulse Oximetry 100 03/26/21 16:27 Temperature 97.0 F L 03/26/21 16:27 Pulse Rate 63 03/26/21 20:42 Respiratory Rate 14 03/26/21 20:42 Blood Pressure 133/77 03/26/21 20:42 Pulse Oximetry 98 03/26/21 20:42 MDM - Abdominal Pain MDM Narrative Medical decision making narrative: Patient presents to the emergency department for epigastric abdominal pain radiating into her chest. Was also reporting shortness of breath. She is afebrile and nontoxic-appearing. CBC is wi
[2021-03-26 18:14] LABS: Partial Thromboplastin Time 25.1 SECONDS (22.3-36.8)
[2021-03-26] MEDS: INSULIN HUMAN REGULAR (*BKC) 100 UNITS/ML 7 UNITS IV PUSH (18:55)
[2021-03-26] MEDS: ONDANSETRON INJ 4 MG/2 ML VIAL IV PUSH (18:56)
[2021-03-26] MEDS: SODIUM CHLORIDE 0.9% IV 1,000 ML 999 ML IV CONT (18:57)
[2021-03-26] MEDS: FAMOTIDINE 20 MG/2 ML VIAL IV PUSH (18:57)
--- NOTE | 2021-03-26 19:38 | PC.NURSE ---
Pt presents to ED with complaints of abdominal pain.
[2021-03-26] MEDS: MORPHINE SULFATE (*CRX) 4 MG/ML INJ IV PUSH (19:44)
[2021-03-26 20:09] LABS: Glucose Point of Care 224 (65-105)
--- NOTE | 2021-03-26 20:21 | PC.NURSE ---
Pt resting on cart in its lowest position with no complaints or concerns voiced. States pain has improved and is now rated 3/10 at this time. Pt has no requests. Call button and personal items within reach. Pt advised to press call button for assistance.
--- NOTE | 2021-03-26 20:34 | PC.NURSE ---
EDMD at bedside to update pt on poc.
[2021-03-26] MEDS: PANTOPRAZOLE SODIUM IV 40 MG VIAL IV PUSH (20:41)
[2021-03-26 20:42] VITALS: BP 133/77; PULSE 63; RESP 14; O2SAT 98
--- NOTE | 2021-03-26 20:45 | PC.NURSE ---
Glucose 201.
[2021-03-26 20:48] LABS: Glucose Point of Care 201 (65-105)
[2021-03-26 21:26] VITALS: BP 151/72; PULSE 71; RESP 19; TEMP 37; O2SAT 99
== END 2021-03-26 21:32 | disposition home or self-care (01) ==
PROVIDERS: Emergency Medicine; Physician Assistant; Emergency Provider Emergency Medicine; PCP Physician Assistant
DX: K20.90 Esophagitis, unspecified without bleeding (principal); I31.8 Other specified diseases of pericardium; E11.65 Type 2 diabetes mellitus with hyperglycemia; J45.909 Unspecified asthma, uncomplicated; E11.43 Type 2 diabetes mellitus with diabetic autonomic (poly)neuropathy; K31.84 Gastroparesis; E11.40 Type 2 diabetes mellitus with diabetic neuropathy, unspecified; E78.5 Hyperlipidemia, unspecified; I10 Essential (primary) hypertension; D12.7 Benign neoplasm of rectosigmoid junction; Z86.16 Personal history of COVID-19; Z86.718 Personal history of other venous thrombosis and embolism; Z79.4 Long term (current) use of insulin; Z79.01 Long term (current) use of anticoagulants; R94.31 Abnormal electrocardiogram [ECG] [EKG]
CPT/HCPCS: 36415; 71275; 74177; 80053; 81001; 81025; 82948; 83690; 85025; 85610; 85730; 93005; 96361; 96365; 96375; 99284; C9113; J0131; J1815; J2270; J2405; J7030; Q9967

== ENCOUNTER 2021-07-04 15:46 | Emergency (ER) | payer OTHER, SELFPAY ==
--- NOTE | ~2021-07-04 | CT_ITS ---
EXAMINATION: CT abdomen pelvis w con DATE: 07/04/2021 20:27 INDICATION: Right abdominal pain. TECHNIQUE: Computed tomography (CT) of the abdomen and pelvis was performed with 100 mL Omnipaque 350 intravenous contrast. Automated exposure control and iterative reconstruction technique were employe d. The dose-length product was 594.81 mGy-cm. COMPARISON: CT abdomen and pelvis 03/26/2021 FINDINGS: The visualized portions of the lung bases demonstrate mild atelectasis. No pleural effusion . The heart size is normal. No pericardial effusion. There is diffuse hepatic steatosis. The gallblad whitney, spleen, pancreas, adrenal glands, and left kidney are normal. There is a new 1.9 cm mixed solid and cystic hypoenhancing mass in right kidney with adjacent 1.8 cm perinephric fluid collection and f at stranding. There are no dilated loops of bowel. The appendix is normal. There are no pathologicall y enlarged lymph nodes. There is no free intraperitoneal fluid. There is mild thoracolumbar spondylos is. IMPRESSION: 1. New 1.9 cm right kidney mass with adjacent small fluid collection and fat stranding. This finding is most likely focal acute kidney injure (infarct, pyelonephritis, or trauma) with ruptured calyx. Fo llow-up CT without and with contrast is recommended in 3 months to exclude malignancy. Reviewed, dictated and finalized at location A. IMPRESSION: 1. New 1.9 cm right kidney mass with adjacent small fluid collection and fat st randing. This finding is most likely focal acute kidney injure (infarct, pyelon ephritis, or trauma) with ruptured calyx. Follow-up CT without and with contras t is recommended in 3 months to exclude malignancy.
--- NOTE | ~2021-07-04 | XR_ITS ---
EXAMINATION: XR chest 2V DATE: 07/04/2021 19:53 INDICATION: Cough. Right chest pain. TECHNIQUE: Frontal and lateral views of the chest were obtained. COMPARISON: Chest single view 11/28/2020, chest CT 03/26/2021 FINDINGS: The lung volumes are small, which is chronic. The chest demonstrates clear lungs without pn eumonia, pleural effusion, or pneumothorax. The heart size is normal. The ventricles are normal in s ize. IMPRESSION: 1. No acute cardiopulmonary disease. Reviewed, dictated and finalized at location A.
[2021-07-04 16:24] VITALS: BP 148/99; PULSE 100; RESP 18; TEMP 37.1; O2SAT 98
[2021-07-04 19:26] VITALS: BP 137/83; PULSE 85; RESP 13; O2SAT 99
[2021-07-04] MEDS: ONDANSETRON INJ 4 MG/2 ML VIAL IV PUSH (19:47)
[2021-07-04] MEDS: MORPHINE SULFATE (*CRX) 4 MG/ML INJ IV PUSH (19:49)
[2021-07-04 19:52] LABS: Basophils Percent Auto 0.2 % (0.2-1.2); Eosinophils Absolute Auto 0.1 K/mm3 (0-0.3); Eosinophils Percent Auto 0.5 % (0-4.4); Hemoglobin 14.6 g/dL (12.0-15.0); Immature Granulocyte Absolute 0.03 K/mm3 (0.00-0.031); Immature Granulocyte Percent A 0.3 % (0-0.5); Lymphocytes Absolute Auto 1.62 K/mm3 (0.9-3.2); Lymphocytes Percent Auto 16.9 % (18.3-44.2); Mean Corpuscular HGB Conc 33.2 g/dl (32-36); Mean Corpuscular Hemoglobin 29.4 pg (26-34); Mean Corpuscular Volume 88.7 fl (80-100); Mean Platelet Volume 10.9 fl (7.4-10.4); Monocytes Absolute Auto 0.7 K/mm3 (0.1-0.6); Monocytes Percent Auto 6.9 % (2.6-8.5); Neutrophils Absolute Auto 7.2 K/mm3 (1.3-6.7); Neutrophils Percent Auto 75.2 % (45.5-73.1); Platelet Count Result 218 k/mm3 (150-375); Red Blood Count 4.96 M/mm3 (4.2-5.4); Red Cell Distribution Width 11.9 % (11.5-14.5); White Blood Count 9.6 K/mm3 (4.5-10.0)
[2021-07-04 20:00] LABS: Alanine Aminotransferase 15 U/L (4-35); Albumin Level 4.1 g/dL (3.5-5.1); Alkaline Phosphatase 114 U/L (38-126); Anion Gap 10 mmol/L (8-16); Aspartate Amino Transferase 20 U/L (14-36); Bilirubin,Total 0.5 mg/dL (0.2-1.3); Blood Urea Nitrogen 12 mg/dL (7-17); Calcium 9.4 mg/dL (8.4-10.2); Carbon Dioxide 27 mmol/L (22-30); Chloride 93 mmol/L (98-107); Estimated CRCL calculation 74 ml/min; Estimated Glomerular Filt Rate > 60; Glucose 341 mg/dL (65-110); Lipase 20 U/L (23-300); Potassium 3.6 mmol/L (3.4-5.0); Sodium 130 mmol/L (137-145)
--- NOTE | 2021-07-04 20:00 | ED.GENADULT ---
HPI - General Adult General Chief complaint: Unspecified Stated complaint: low back pain Time Seen by Provider: 07/04/21 19:27 Source: patient, RN notes reviewed and old records reviewed Mode of arrival: ambulatory Limitations: no limitations History of Present Illness HPI narrative: This is a 51 year old female who presents for evaluation of right flank pain for 3 days. She reports constant right lower back pain that radiates to her right lower abdomen. This pain has gradually gotten worse over the past day. She has associated nausea, vomiting and increased urination. She also reports cough and shortness of breath due to pain. Her pain is worse with laying on her right side . She denies fever, chills, dysuria or diarrhea. She took tramadol today with out relief. She has tramadol for peripheral neuropathy. She had an upper endoscopy on Thursday . Onset (ago): day(s) (3) Related Data Home Medications Medication Instructions Recorded Confirmed amitriptyline 25 mg PO DAILY 03/13/20 12/19/20 Eliquis 5 mg PO DAILY 06/16/20 12/19/20 duloxetine 60 mg PO HS 06/16/20 12/19/20 ezetimibe 10 mg PO DAILY 06/16/20 12/19/20 losartan 50 mg PO DAILY 06/16/20 12/19/20 metformin 1,000 mg PO BID 06/16/20 12/19/20 Basaglar KwikPen U-100 Insulin 24 unit SUBCUT HS 12/07/20 12/19/20 Januvia 100 mg PO DAILY 12/07/20 12/19/20 pregabalin 150 mg PO BID 12/07/20 12/19/20 Allergies Allergy/AdvReac Type Severity Reaction Status Date / Time No Known Allergies Allergy Unknown Verified 07/04/21 19:24 Review of Systems Review of Systems: All systems reviewed & are unremarkable except as noted in HPI and below PMFSH Past Medical History Medical History (Updated 07/04/21 @ 21:32 by Vianey Ring MD) Adenomatous colon polyp Asthma COVID-19 Diabetes mellitus DVT (deep venous thrombosis) Gastroparesis H. pylori infection HLD (hyperlipidemia) HTN (hypertension) Neuropathy Surgical History Surgical History H/O section H/O colonoscopy H/O esophagogastroduodenoscopy History of tonsillectomy Family History Family History Mother Diabetes mellitus Heart disease Acute myocardial infarction Sibling Diabetes mellitus Social History Social History Smoking status: Never smoker Alcohol intake: never Substance use: never Gender identity (if verbalized by the patient): Female Spiritual care concerns: No Exam Narrative: GENERAL: well-nourished,appears to be in mild distress due to pain HEAD: Normocephalic, atraumatic EYES: PERRLA and EOMI, conjunctiva clear without discharge THROAT:Mucous membranes moist, Oropharynx normal without erythema, exudate, peritonsillar swelling or fluctuance NECK: Supple, without lymphadenopathy or mass RESPIRATORY: No respiratory distress, Airway patent, Respirations non-labored, Clear to auscultation without rales, rhonchi or wheeze HEART: Regular rate and rhythm. No murmur heard. Normal peripheral pulses. ABDOMEN: Soft, TTP right lower abdomen, right CVA, nondistended, normal active bowel sounds. No masses. No rebound or guarding, No organomegaly. EXTREMITIES: No edema, normal strength with full range of motion. SKIN: Warm, dry, normal color without rash NEURO: Alert and oriented x3. CN 2-12 grossly intact. No focal deficits. PSYCH: Normal mood and affect. Course Reevaluation(s) Reevaluation #1: I reviewed CT and plan with patient. She is follow up with PCP regarding hyper glycemia. She was tested for covid 3 days ago but she is agreeable to testing again to see if that could be cause of renal finding. She does not have fever, leukocytosis or UTI to suggest infection. She is agreeable to plan with discharge pain, pain medication and follow up with urologist. Date: 07/04/21 Time: 21:28 Consultations Cons
[2021-07-04 20:02] LABS: Add Urine Microscopic? YES; Appearance Urine Clear (Clear); Bilirubin Urine Negative (Negative); Blood Urine Negative (Negative); Color Urine Yellow (Yellow); Glucose Urine UA 3+ mg/dL (Negative); Ketones Urine 1+ mg/dL (Negative); Leukocyte Esterase Ur Negative LEU/UL (Negative); Mucus Urine Heavy /lpf; Nitrate Urine Negative (Negative); Protein Urine 1+ mg/dL (Negative); RBC Urine 0-2 /hpf (0-2); Squamous Epithelial Cell Urine Few /hpf (Few); WBC Urine 0-3 /hpf
[2021-07-04 20:06] LABS: Specific Grav Ur 1.038 (1.001-1.035)
[2021-07-04] MEDS: LACTATED RINGERS 1,000 ML 999 ML IV CONT ×2 (20:30→20:39)
[2021-07-04 20:44] VITALS: BP 128/77; PULSE 74; RESP 25; O2SAT 99
[2021-07-04 22:04] VITALS: BP 132/70; PULSE 70; RESP 16; O2SAT 96
[2021-07-06 02:05] LABS: SARS-CoV-2 RNA PCR Negative
== END 2021-07-04 22:04 | disposition home or self-care (01) ==
PROVIDERS: Emergency Provider General Practice; PCP Physician Assistant
DX: N28.89 Other specified disorders of kidney and ureter (principal); E11.65 Type 2 diabetes mellitus with hyperglycemia; Z20.822 Contact with and (suspected) exposure to COVID-19; J45.909 Unspecified asthma, uncomplicated; E11.43 Type 2 diabetes mellitus with diabetic autonomic (poly)neuropathy; K31.84 Gastroparesis; I10 Essential (primary) hypertension; E78.5 Hyperlipidemia, unspecified; E11.40 Type 2 diabetes mellitus with diabetic neuropathy, unspecified; Z86.16 Personal history of COVID-19; Z86.010 Personal history of colon polyps; Z86.718 Personal history of other venous thrombosis and embolism; Z79.899 Other long term (current) drug therapy; Z79.84 Long term (current) use of oral hypoglycemic drugs; Z79.01 Long term (current) use of anticoagulants
CPT/HCPCS: 36415; 71046; 74177; 80053; 81001; 81025; 83690; 85025; 96361; 96374; 96375; 99284; C9803; J2270; J2405; J7120; Q9967; U0003; U0005

== ENCOUNTER 2021-07-18 17:43 | Inpatient (IN) | payer OTHER, SELFPAY ==
--- NOTE | ~2021-07-18 | CT_ITS ---
EXAMINATION: CT abdomen pelvis w con DATE: 07/18/2021 22:34 INDICATION: Right flank pain. History of cyst with surrounding inflammation. TECHNIQUE: Computed tomography (CT) of the abdomen and pelvis was performed with 100 cc Omnipaque 350 intravenous contrast. Automated exposure control and iterative reconstruction technique were employe d. Exam dose: 569.80 mGy-cm total exam DLP. COMPARISON: 07/04/2021 CT abdomen pelvis FINDINGS: There is mild atelectasis at the lung bases. Cardiomegaly. No pericardial or pleural effu gretta. No hepatic, splenic, pancreatic, adrenal or left renal mass lesion. There is increased size of the right renal posterior irregular locular appearing hypodense mass, curr ently measuring up to 3.1 cm AP and 4.5 cm transverse and 6.4 cm vertical dimension. There is adjacen t perinephric stranding. There is thickening of the posterior pararenal fascia and extension to the r ight psoas muscle. Differential diagnosis includes abscess, less likely cystic hypernephroma. No urinary tract calculus or hydroureteronephrosis. Normal appendix. There is a prominent amount of fecal material in the colon but no bowel obstruction. No bowel wall thickening, pneumatosis or intraperitoneal free air. The uterus and adnexal areas and urinary bladder are unremarkable. Normal caliber of the abdominal aorta. No intraperitoneal or retroperitoneal or pelvic mass lesion or adenopathy or ascites is noted otherwise. No suspicious osteolytic or osteoblastic lesions. IMPRESSION: Increased size of posterior right renal hypoattenuating irregular mass measuring up to 3 .1 x 4.5 x 6.4 cm. Differential diagnosis includes renal abscess, less likely cystic hypernephroma. U rologist consultation is recommended. Reviewed, dictated and finalized at Location [facility]. Reviewed, dictated and finalized at location A. IMPRESSION: Increased size of posterior right renal hypoattenuating irregular mass measuring up to 3.1 x 4.5 x 6.4 cm. Differential diagnosis includes renal abscess, less likely cystic hypernephroma. Urologist consultation is recommende dKris
--- NOTE | ~2021-07-18 | XR_ITS ---
EXAMINATION: XR chest 2V DATE: 07/19/2021 15:01 INDICATION: Cough. TECHNIQUE: Frontal and lateral views of the chest were obtained. COMPARISON: Chest 2 views 07/04/2021, CT abdomen and pelvis 07/18/2021 FINDINGS: There are airspace opacities at left lung base. No pleural effusion or pneumothorax. The he art size is normal. There is a pigtail drain in right abdomen. IMPRESSION: 1. Airspace opacities at left lung base, consistent with atelectasis versus pneumonia. Reviewed, dictated and finalized at location B. IMPRESSION: 1. Airspace opacities at left lung base, consistent with atelectasis versus pne umonia.
--- NOTE | ~2021-07-18 | US_ITS ---
EXAMINATION: US venous doppler [facility] DATE: 07/21/2021 17:20 INDICATION: Lower limb swelling. Right thigh pain. TECHNIQUE: Grayscale ultrasound images without and with compression and Doppler ultrasound images of the bilateral lower extremity veins were obtained. COMPARISON: None. FINDINGS: The visualized portions of right common femoral vein, profunda (deep) femoral vein, femoral vein, pop liteal vein, peroneal veins, posterior tibial veins, and greater saphenous vein outflow are patent. The visualized portions of left common femoral vein, profunda femoral vein, femoral vein, popliteal v ein, peroneal veins, posterior tibial veins, and greater saphenous vein outflow are patent. IMPRESSION: 1. No deep venous thrombosis. Reviewed, dictated and finalized at location A.
--- NOTE | ~2021-07-18 | CT_ITS ---
EXAMINATION: CT abdomen wo con DATE: 07/23/2021 11:46 INDICATION: Renal abscess. Right flank pain. TECHNIQUE: Computed tomography (CT) of the abdomen was performed without intravenous contrast. Automa reggie exposure control and iterative reconstruction technique were employed. The dose-length product wa s 462.45 mGy-cm. COMPARISON: CT abdomen and pelvis 07/28/2021 FINDINGS: The visualized portions of the lung bases demonstrate mild atelectasis. There are small ple ural effusions. The heart size is normal. There are coronary artery calcifications. No pericardial ef fusion. There is diffuse hepatic steatosis. The gallbladder, spleen, pancreas, adrenal glands, and le ft kidney are normal. There is a percutaneous drain adjacent to the right kidney with surrounding fat stranding. No significant residual fluid. There are no dilated loops of bowel. The appendix is herlinda l. There are no pathologically enlarged lymph nodes. There is no free intraperitoneal fluid. There is mild thoracolumbar spondylosis. IMPRESSION: 1. Percutaneous drain adjacent to the right kidney with surrounding inflammation. No significant resi dual fluid. 2. Diffuse hepatic steatosis. Reviewed, dictated and finalized at location A. IMPRESSION: 1. Percutaneous drain adjacent to the right kidney with surrounding inflammatio n. No significant residual fluid. 2. Diffuse hepatic steatosis.
--- NOTE | ~2021-07-18 | CT_ITS ---
EXAMINATION: CT abscess cyst asp w imaging DATE: 07/19/2021 14:54 INDICATION: Right renal abscess TECHNIQUE: The procedure including the risks and benefits was discussed with the patient. Risks discu ssed included bleeding and infection. The patient understood the risks and benefits and agreed to pro ceed. The patient was confirmed to be receiving appropriate antibiotic coverage. The skin overlying the posterior right paraspinal upper quadrant of the abdomen was prepped and draped in usual sterile fashion. Conscious sedation was provided by the department of anesthesia. Local anesthetic was admini stered with 1% lidocaine subcutaneously. An 18-gauge trocar needle was inserted into the right renal/ pararenal abscess cavity utilizing intermittent CT guidance. The inner stylette was removed and a wir e passed through the guide needle into the fluid collection. Utilizing Seldinger technique the needle was removed and the tract serially dilated over the wire to 9 Faroese. An 8.5 Faroese catheter was ins erted over the wire into the fluid collection in the loop formed with positioning confirmed by CT. Th ere are wire was then removed and a 10 mL of opaque ulloa purulent appearing fluid was aspirated and th e catheter then attached to suction drainage. The catheter was sutured to the skin and antibiotic oin tment and a sterile dressing were applied. There were no immediate complications. The dose-length pro duct was 305.38 mGy-cm. FINDINGS: CT images demonstrate the image catheter within the right renal/pararenal fluid collection. 10 mL fluid was aspirated for testing. IMPRESSION: 1. Successful CT-guided right renal/pararenal percutaneous abscess drainage and drainage catheter camelia cement. 2. 10 mL fluid was sent for aerobic and anaerobic cultures. 3. The catheter will be managed by Dr. Jean. Reviewed, dictated and finalized at location A. IMPRESSION: 1. Successful CT-guided right renal/pararenal percutaneous abscess drainage and drainage catheter placement. 2. 10 mL fluid was sent for aerobic and anaerobic cultures. 3. The catheter will be managed by Dr. Jean.
[2021-07-18 17:47] VITALS: BP 150/123; PULSE 96; RESP 16; TEMP 36.5; O2SAT 99
[2021-07-18 18:02] LABS: Basophils Percent Auto 0.4 % (0.2-1.2); Eosinophils Percent Auto 0.2 % (0-4.4); Hematocrit 41.8 % (37.0-47.0); Hemoglobin 13.4 g/dL (12.0-15.0); Immature Granulocyte Absolute 0.04 K/mm3 (0.00-0.031); Immature Granulocyte Percent A 0.4 % (0-0.5); Lymphocytes Absolute Auto 1.83 K/mm3 (0.9-3.2); Lymphocytes Percent Auto 18.1 % (18.3-44.2); Mean Corpuscular HGB Conc 32.1 g/dl (32-36); Mean Corpuscular Hemoglobin 28.8 pg (26-34); Mean Corpuscular Volume 89.7 fl (80-100); Mean Platelet Volume 10.2 fl (7.4-10.4); Monocytes Absolute Auto 0.7 K/mm3 (0.1-0.6); Monocytes Percent Auto 6.9 % (2.6-8.5); Neutrophils Absolute Auto 7.5 K/mm3 (1.3-6.7); Platelet Count Result 345 k/mm3 (150-375); Red Blood Count 4.66 M/mm3 (4.2-5.4); Red Cell Distribution Width 11.7 % (11.5-14.5); White Blood Count 10.1 K/mm3 (4.5-10.0)
[2021-07-18 18:17] LABS: Anion Gap 6 mmol/L (8-16); Blood Urea Nitrogen 5 mg/dL (7-17); Calcium 9.5 mg/dL (8.4-10.2); Carbon Dioxide 29 mmol/L (22-30); Chloride 100 mmol/L (98-107); Estimated CRCL calculation 103 ml/min; Estimated Glomerular Filt Rate > 60; Glucose 375 mg/dL (65-110); Potassium 3.6 mmol/L (3.4-5.0); Sodium 135 mmol/L (137-145)
[2021-07-18 20:14] VITALS: BP 118/82; PULSE 88; RESP 18; TEMP 36.8; O2SAT 98
[2021-07-18 21:00] LABS: Add Urine Microscopic? YES; Appearance Urine Clear (Clear); Bacteria Urine Trace /hpf; Bilirubin Urine Negative (Negative); Blood Urine Negative (Negative); Color Urine Yellow (Yellow); Glucose Urine UA 3+ mg/dL (Negative); Ketones Urine Trace mg/dL (Negative); Leukocyte Esterase Ur Negative LEU/UL (Negative); Mucus Urine Rare /lpf; Nitrate Urine Negative (Negative); Protein Urine Negative (Negative); RBC Urine 0-2 /hpf (0-2); Squamous Epithelial Cell Urine Occasional /hpf (Few); Urobilinogen Urine Negative mg/dL (<2.0); WBC Urine 0-3 /hpf
[2021-07-18 21:03] LABS: Specific Grav Ur 1.044 (1.001-1.035)
[2021-07-18 21:43] VITALS: BP 152/116; PULSE 89; RESP 27; O2SAT 99
--- NOTE | 2021-07-18 22:06 | ED.ABDPAIN ---
HPI - Abdominal Pain General Chief Complaint: Abdominal Pain Stated Complaint: R side pain Time Seen by Provider: 07/18/21 21:40 Source: patient History of Present Illness HPI narrative: Patient presents with right flank pain. Pain for extensive present since the beginning of the month she has been previously been seen here [facility]. He has a known kidney cyst with some surrounding inflammation. Reports her symptoms were initially getting better however today a. Worse so she wanted to come in for evaluation. She is not having fevers pain she does report a cough which exacerbates her pain. Pain is achy, constant, no radiation. Denies any urinary symptoms such as dysuria. She denies any nausea vomiting or diarrhea Related Data Home Medications Medication Instructions Recorded Confirmed amitriptyline 25 mg PO DAILY 03/13/20 12/19/20 Eliquis 5 mg PO DAILY 06/16/20 12/19/20 duloxetine 60 mg PO HS 06/16/20 12/19/20 ezetimibe 10 mg PO DAILY 06/16/20 12/19/20 losartan 50 mg PO DAILY 06/16/20 12/19/20 metformin 1,000 mg PO BID 06/16/20 12/19/20 Basaglar KwikPen U-100 Insulin 24 unit SUBCUT HS 12/07/20 12/19/20 Januvia 100 mg PO DAILY 12/07/20 12/19/20 pregabalin 150 mg PO BID 12/07/20 12/19/20 Allergies Allergy/AdvReac Type Severity Reaction Status Date / Time No Known Allergies Allergy Unknown Verified 07/18/21 21:44 Review of Systems Review of Systems: CONSTITUTIONAL: Denies fever, chills, or sweats. EYES: Denies visual changes, redness, or discharge. ENT: Denies rhinorrhea, congestion, sore throat, or otalgia. CARDIOVASCULAR: Denies chest pain, palpitations, or edema. RESPIRATORY: Denies cough or dyspnea. GASTROINTESTINAL: Denies nausea, vomiting, or diarrhea. GENITOURINARY: Denies dysuria or hematuria. SKIN: Denies rash or itching. MUSCULOSKELETAL: Denies joint pain, or myalgia. NEUROLOGIC: Denies headache, numbness, dizziness, or weakness. PSYCHIATRIC: Denies anxiety or depression. All systems reviewed & are unremarkable except as noted in HPI and below PMFSH Past Medical History Medical History Adenomatous colon polyp Asthma COVID-19 Diabetes mellitus DVT (deep venous thrombosis) Gastroparesis H. pylori infection HLD (hyperlipidemia) HTN (hypertension) Neuropathy Surgical History Surgical History H/O section H/O colonoscopy H/O esophagogastroduodenoscopy History of tonsillectomy Family History Family History Mother Diabetes mellitus Heart disease Acute myocardial infarction Sibling Diabetes mellitus Social History Social History Smoking status: Never smoker Alcohol intake: never Substance use: never Gender identity (if verbalized by the patient): Female Spiritual care concerns: No Exam Narrative: GENERAL: Well-appearing, well-nourished, and in mild acute distress due to pain. HEAD: Normocephalic, atraumatic. EYES: PERRLA and EOMI. ENT: Nares clear, no rhinorrhea or epistaxis. Mucous membranes moist. NECK: Supple. No masses. No JVD CHEST: Clear to auscultation. No respiratory distress. No wheezes rales or rhonchi HEART: Regular rate and rhythm. No murmur heard. Normal peripheral pulses. ABDOMEN: Soft, nontender, nondistended, BACK: CVA tenderness on the right, EXTREMITIES: Normal range of motion. No edema. SKIN: Warm, dry, no rash. NEURO: No focal deficits. Alert and oriented x3. PSYCH: Normal mood and affect. Course Consultations Consultation #1: pending urology consultation Date: 07/18/21 Time: 23:25 Consultation #2: Discussed case with urology, IR and hospitalist. Will be admitted urology will evaluate and consult with likely IR interventions for aspiration biopsy or drain placement. Patient comfortable with the inpatient plan Date:
[2021-07-18] MEDS: MORPHINE SULFATE (*CRX) 4 MG/ML INJ IV PUSH (22:13)
[2021-07-18 22:30] LABS: Lactic Acid Reflex 1.1 mmol/L (0.7-2.1)
[2021-07-18 22:31] LABS: Alanine Aminotransferase 12 U/L (4-35); Alkaline Phosphatase 102 U/L (38-126); Aspartate Amino Transferase 21 U/L (14-36); Bilirubin,Total 0.4 mg/dL (0.2-1.3)
[2021-07-18 22:39] VITALS: BP 135/79; PULSE 74; RESP 15; O2SAT 98
--- NOTE | 2021-07-18 23:00 | ECG_ITS ---
Measurements Intervals [place] Rate: 75 P: OR: 0 QRS: -14 QRSD: 108 T: -47 QT: 386 QTc: 434 Interpretive Statements SINUS OR ECTOPIC ATRIAL RHYTHM ANTEROSEPTAL INFARCT, AGE INDETERMINATE INFERIOR INFARCT, AGE INDETERMINATE BASELINE ARTIFACT- I, II, III, AVR, AVL, AVF, V1-V6 ABNORMAL ECG Electronically Signed On 07-19-2021 6:01:58 CDT by Satya Mccrary D.O.
[2021-07-18 23:31] VITALS: BP 124/61; PULSE 74; RESP 19; O2SAT 99
[2021-07-19] VITALS (7 sets, daily range): BP systolic 133–137; BP diastolic 64–81; PULSE 72–110; RESP 16–22; TEMP 36.6–38.9; O2SAT 93–97; BMI 32.3
[2021-07-19 00:21] LABS: INR 1.2; Partial Thromboplastin Time 32.6 SECONDS (22.3-36.8); Prothrombin Time 15.4 Seconds (11.1-14.7)
[2021-07-19] MEDS: MORPHINE SULFATE (*CRX) 4 MG/ML INJ IV PUSH ×3 (00:57→08:21)
--- NOTE | 2021-07-19 01:52 | ADMGEN ---
This patient, Madhavi Stein, was admitted to Medical Room 248-. Patient/family oriented to hospital policies and general routines including ID bracelet, bed and alarms, visiting hours, pain management, procedures, bathroom and other care routines, personal items, smoking policy, room service/diet, and visiting hours. Information on how to activate the Rapid Response Team has been discussed. Patient/Family are encouraged to report perceived risks to care and to ask questions if they do not understand what they are told or what they should do.
[2021-07-19] MEDS: SODIUM CHLORIDE 0.9% IV 1,000 ML 125 ML IV CONT ×2 (02:42→11:43)
--- NOTE | 2021-07-19 03:23 | PM.IMHP ---
H&P: HPI History of Present Illness Date/Time: 07/19/21 03:23 Chief Complaint: Right flank pain Narrative: This is a 51-year-old female with past medical history significant for type 2 diabetes mellitus, DVT, GERD, diabetic neuropathy, COVID pneumonia, perirectal wound. Patient presented to emergency room due to pain in the right flank for several days now. She has not been able to eat she denies any fevers rigors or chills but states that the pain is unbearable a it is steady nonradiating alleviated only by pain medication worse with movement. She had been seen couple of days before for these and had been discharged home on pain medications and p.o. antibiotics but returned due to worsening pain. Preliminary workup in emergency room was significant for CT of abdomen and pelvis with possible kidney abscess. Patient has been admitted for further management and treatment. Review of Systems Review of Systems: Right flank pain Constitutional: Constitutional: Denies chills, Denies fatigue, Denies fever(s) and Denies malaise Eyes: Eyes: Denies change in vision ENT: Denies dysphagia, Denies nasal congestion, Denies nasal discharge, Denies nasal obstruction and Denies odynophagia Cardiovascular: Cardiovascular: Denies chest pain, Denies irregular heart rhythm, Denies claudication, Denies leg edema, Denies radiating jaw, neck or arm pain, Denies palpitations and Denies dyspnea on exertion Respiratory: Respiratory: Denies cough Gastrointestinal: Gastrointestinal: Denies abdominal pain, Denies heartburn, Denies nausea and Denies vomiting Genitourinary: Genitourinary: Reports flank pain (Right-sided) Musculoskeletal: Musculoskeletal: Reports no additional musculoskeletal complaints Integumentary/Breasts: Skin/Breast: Reports system reviewed and no additional complaints, except as docu Neurologic: Reports system reviewed and no additional complaints, except as documented Psychiatric: Psychiatric: Reports no additional psychiatric complaints Endocrine: Endocrine: Reports no additional endocrine complaints Hematologic/Lymphatic: Hematologic/Lymphatic: Reports no additional hematologic/lymphatic complaints Allergic/Immunologic: Allergic/Immunologic: Reports no additional allergic/immunologic complaints [facility] Past Medical History Medical History (Updated 07/19/21 @ 03:35 by Mack Prince MD) Adenomatous colon polyp Asthma COVID-19 Diabetes mellitus DVT (deep venous thrombosis) Gastroparesis H. pylori infection HLD (hyperlipidemia) HTN (hypertension) Neuropathy Surgical History Surgical History H/O section H/O colonoscopy H/O esophagogastroduodenoscopy History of tonsillectomy Family History Family History Mother Diabetes mellitus Heart disease Acute myocardial infarction Sibling Diabetes mellitus Social History Social History Smoking status: Never smoker Second hand tobacco smoke exposure: Yes Alcohol intake: never Substance use: never Substance use type: does not use Gender identity (if verbalized by the patient): Female Spiritual care concerns: No Meds Home Medications and Allergies Home Medications Medication Instructions Recorded Confirmed Type Eliquis 5 mg PO DAILY 06/16/20 07/19/21 History duloxetine 60 mg PO HS 06/16/20 07/19/21 History ezetimibe 10 mg PO DAILY 06/16/20 07/19/21 History losartan 50 mg PO DAILY 06/16/20 07/19/21 History metformin 1,000 mg PO BID 06/16/20 07/19/21 History albuterol sulfate 4 puff INHALATION QID PRN #8 gm 11/28/20 07/19/21 Rx Broderick Brewster U-100 Insulin 25 unit SUBCUT HS 12/07/20 07/19/21 History Januvia 100 mg PO DAILY 12/07/20 07/19/21 History pregabalin 150 mg PO BID 12/07/20 07/19/21 History pantoprazole [Protonix] 40 mg PO QAM 30 Days #30 tablet 12/13/20 07/19/21 Rx
[2021-07-19] MEDS: PREGABALIN (*CRX) 75 MG CAPSULE 150 MG PO ×2 (08:18→17:58)
[2021-07-19] MEDS: PANTOPRAZOLE 40 MG TABLET PO (08:19)
[2021-07-19] MEDS: ONDANSETRON INJ 4 MG/2 ML VIAL IV PUSH (08:21)
[2021-07-19 08:24] LABS: Glucose Point of Care 285 mg/dl (65-105)
--- NOTE | 2021-07-19 09:08 | WPDURCON ---
Assessment and Plan Assessment and plan (1) Renal abscess: Code(s): N15.1 - Renal and perinephric abscess Status: Acute Assessment and Plan: Keep NPO Obtain consent: CT guided aspiration of right renal abscess. Plan to go to IR today for procedure. Monitor for fever, WBC and continue antibiotics. Management of pain and IV antibiotics will continue. Urology Consult Note HPI Date Seen: 07/19/21 Requesting Physician: Alma Rosa Salvador PA-C Primary Care Provider: Mike Victor, PA Consult Narrative Narrative: Madhavi Stein is a 51 year old female who presents to the ER yesterday for the 3rd time in a month for worsening symptoms of right flank pain and nausea. She denies hematuria, frequency, urgency or dysuria. She is afebrile, WBC is 10.1 and creatinine is 0.50. She initially was seen in the ER at [place] on 07/04/2021 and diagnosed with a renal abscess via CT scan showing a new 1.9 cm right kidney mass with adjacent small fluid collection and fat stranding. She was treated with antibiotics and sent home. She was then seen again one week ago for worsening symptoms at [facility]. She is now back and her CT shows progression of the abscess as of yesterday: Increased size of posterior right renal hypoattenuating irregular mass measuring up to 3.1 x 4.5 x 6.4 cm. Differential diagnosis includes renal abscess, less likely cystic hypernephroma. Review of Systems Cardiovascular: Cardiovascular: Denies chest pain Respiratory: Respiratory: Reports no additional respiratory complaints Gastrointestinal: Gastrointestinal: Reports abdominal pain, Reports nausea and Denies vomiting Genitourinary: Genitourinary: Denies hematuria, Denies dysuria, Denies pelvic pain, Reports flank pain, Denies urinary incontinence and Denies urinary urgency [facility] Past Medical History Medical History Adenomatous colon polyp Asthma COVID-19 Diabetes mellitus DVT (deep venous thrombosis) Gastroparesis H. pylori infection HLD (hyperlipidemia) HTN (hypertension) Neuropathy Surgical History Surgical History H/O section H/O colonoscopy H/O esophagogastroduodenoscopy History of tonsillectomy Family History Family History Mother Diabetes mellitus Heart disease Acute myocardial infarction Sibling Diabetes mellitus Social History Social History Smoking status: Never smoker Second hand tobacco smoke exposure: Yes Alcohol intake: never Substance use: never Substance use type: does not use Gender identity (if verbalized by the patient): Female Spiritual care concerns: No Meds Home Medications and Allergies Home Medications Medication Instructions Recorded Confirmed Type Eliquis 5 mg PO DAILY 06/16/20 07/19/21 History duloxetine 60 mg PO HS 06/16/20 07/19/21 History ezetimibe 10 mg PO DAILY 06/16/20 07/19/21 History losartan 50 mg PO DAILY 06/16/20 07/19/21 History metformin 1,000 mg PO BID 06/16/20 07/19/21 History albuterol sulfate 4 puff INHALATION QID PRN #8 gm 11/28/20 07/19/21 Rx Basaglar KwikPen U-100 Insulin 25 unit SUBCUT HS 12/07/20 07/19/21 History Januvia 100 mg PO DAILY 12/07/20 07/19/21 History pregabalin 150 mg PO BID 12/07/20 07/19/21 History pantoprazole [Protonix] 40 mg PO QAM 30 Days #30 tablet 12/13/20 07/19/21 Rx pen needle, diabetic [BD #50 ea 12/13/20 07/19/21 Rx Ultra-Fine Evelyn Pen Needle] hydrocodone 5 mg-acetaminophen 325 1 tablet PO Q6H PRN #20 tablet 01/23/21 07/19/21 Rx mg tablet ondansetron 4 mg PO Q6H PRN #10 tablet 07/04/21 07/19/21 Rx oxycodone-acetaminophen 1 tablet PO Q6H PRN #10 tablet 07/04/21 07/19/21 Rx Allergies Allergy/AdvReac Type Severity Reaction Status Date / Time No Known Allergies Allergy Unknown Kathrine
--- NOTE | 2021-07-19 11:00 | PM.IMPN ---
Progress Note: A&P Assessment and Plan (1) Renal abscess: Code(s): N15.1 - Renal and perinephric abscess Status: Acute Assessment and Plan: CT showing increasing size of irregular mass on the right kidney with a differential of abscess of hypernephroma -Pt started on cefepime, WBC 10.1. Will order CRP -Urology consulted, plan for CT guided aspiration today by IR -Continue cefepime, monitor blood cultures -pain medications adjusted due to increased pain (2) Chronic anticoagulation: Code(s): Z79.01 - [facility] (current) use of anticoagulants Status: Chronic Assessment and Plan: Hold Eliquis -On this for DVTs >1 year ago -will restart after aspiration when IR and urology agree (3) Diabetes mellitus: Qualifiers: Diabetes mellitus complication detail: with other skin ulcer Diabetes mellitus complication status: with skin complications Diabetes mellitus senior living insulin use: with senior living use Diabetes mellitus type: type 2 Qualified Code(s): E11.622 - Type 2 diabetes mellitus with other skin ulcer; 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 Code(s): E11.9 - Type 2 diabetes mellitus without complications Status: Chronic Assessment and Plan: Last glucose 285 -Pt does not know what her last a1c was except for that it was high -A1c in our system 11/2020 was 10.1 -Continue lantus and SSI -hold oral hypoglycemics at this time, will add back once pt is tolerating a diet again (4) Hypertension: Qualifiers: Hypertension type: unspecified Qualified Code(s): I10 - Essential (primary) hypertension Code(s): I10 - Essential (primary) hypertension Status: Chronic Assessment and Plan: Last bp 137/70 -Continue losartan (5) Asthma: Code(s): J45.909 - Unspecified asthma, uncomplicated Status: Acute Assessment and Plan: Pt has had increased cough recently -obtain CXR -no COVID exposure, she is covid recovered oct 2020 -sputum cx -Continue albuterol MDI (6) Gastroparesis: Code(s): K31.84 - Gastroparesis Status: Inactive Assessment and Plan: Stable Time Spent With Patient Time with patient: 25 - 35 minutes Subjective Date/time seen: 07/19/21 11:00 Interval history: Pt is a 51-year-old female here for renal abscess. Patient seen today and states she is in severe to at pain in right flank that is not getting better. She denies fevers, chills, vomiting and cp but does have nausea. She said she has been short of breath because she has been coughing lately. She has no shortness of breath when she is at rest or with movement but when she coughs she feels that way. She has been coughing for 3 weeks and it is sometimes productive. She had COVID in October and has not been vaccinated. No sick contacts. Review of Systems Review of Systems: All systems reviewed & are unremarkable except as noted in HPI and below Exam Narrative: General: Well developed well nourished patient in NAD HEENT: normocephalic Neck: supple Neuro: Alert and oriented x4 CV:RRR Resp:crackles to the bases and dry cough on exam with deep breaths. no wheezing or ronchi Abd: Soft, non distended. pain to palpation the right side of the abdomen. Positive bowel sounds Extremities: No swelling, erythema, or pain to palpation. Objective Data Vital Signs Vital Signs: Vital Signs - 24 hr 07/18/21 17:47 07/18/21 20:14 07/18/21 21:43 Temperature 97.7 F 98.3 F Pulse Rate 96 88 89 Respiratory Rate 16 18 27 H Blood Pressure 150/123 H 118/82 152/116 H Pulse Oximetry 99 98 99 07/18/21 22:39 07/18/21 23:31 07/19/21 00:58 Temperature Pulse Rate 74 74 74 Respiratory Rate 15 19 22 H Blood Pressure 135/79 124/61 136/81 Pulse Oximetry 98 99 97 07/19/21 01:49 07/19/21 02:25 07/19/21 05:16 Temperature 97.9 F 98.0 F Pulse Rate 74 81 72 Respiratory Rate 22 H 16 16 Blood Press
[2021-07-19] MEDS: INSULIN ASPART (*BKC) 100 UNITS/ML SUB-Q (11:30)
[2021-07-19 11:40] LABS: Glucose Point of Care 254 mg/dl (65-105)
[2021-07-19] MEDS: HYDROmorphone HCL INJ (*CRX) 1 MG/ML SYR IV PUSH ×3 (11:47→20:45)
[2021-07-19 13:47] LABS: CRP 23.7 mg/dL (<1.0)
--- NOTE | 2021-07-19 13:52 | WPDANESEPPF ---
Anes - Initial Pre Proc Eval Procedure: Operation Date: 07/19/21 14:00 Proposed Procedures p Post Procedure Recovery- Abscess Drain Placement for Kidney - Richi Garzon MD Date/Time: 07/19/21 13:52 Surgeon: Alma Rosa Salvador PA-C Pre Op Diagnosis: Renal Cyst Patient Data Age: 51 Gender: F Height: 1.52 m Weight: 75 kg Last Vital Signs Temp 36.7 C 07/19/21 05:16 Pulse 72 07/19/21 05:16 Resp 16 07/19/21 05:16 BP 137/70 07/19/21 05:16 Pulse Ox 93 07/19/21 05:16 Allergies Allergy/AdvReac Type Severity Reaction Status Date / Time No Known Allergies Allergy Unknown Verified 07/19/21 01:55 Home Medications Medication Instructions Recorded Confirmed Type Eliquis 5 mg PO DAILY 06/16/20 07/19/21 History duloxetine 60 mg PO HS 06/16/20 07/19/21 History ezetimibe 10 mg PO DAILY 06/16/20 07/19/21 History losartan 50 mg PO DAILY 06/16/20 07/19/21 History metformin 1,000 mg PO BID 06/16/20 07/19/21 History albuterol sulfate 4 puff INHALATION QID PRN #8 gm 11/28/20 07/19/21 Rx Basaglar KwikPen U-100 Insulin 25 unit SUBCUT HS 12/07/20 07/19/21 History Januvia 100 mg PO DAILY 12/07/20 07/19/21 History pregabalin 150 mg PO BID 12/07/20 07/19/21 History pantoprazole [Protonix] 40 mg PO QAM 30 Days #30 tablet 12/13/20 07/19/21 Rx pen needle, diabetic [BD #50 ea 12/13/20 07/19/21 Rx Ultra-Fine Evelyn Pen Needle] hydrocodone 5 mg-acetaminophen 325 1 tablet PO Q6H PRN #20 tablet 01/23/21 07/19/21 Rx mg tablet ondansetron 4 mg PO Q6H PRN #10 tablet 07/04/21 07/19/21 Rx oxycodone-acetaminophen 1 tablet PO Q6H PRN #10 tablet 07/04/21 07/19/21 Rx Laboratory Tests 07/18/21 07/18/21 07/18/21 17:53 17:53 20:24 WBC 10.1 K/mm3 H K/mm3 (4.5-10.0) RBC 4.66 M/mm3 M/mm3 (4.2-5.4) Hgb 13.4 g/dL g/dL (12.0-15.0) Hct 41.8 % % (37.0-47.0) MCV 89.7 fl fl (80-100) MCH 28.8 pg pg (26-34) MCHC 32.1 g/dl g/dl (32-36) RDW 11.7 % % (11.5-14.5) Plt Count 345 k/mm3 D k/mm3 (150-375) MPV 10.2 fl fl (7.4-10.4) Immature Gran % (Auto) 0.4 % % (0-0.5) Neut % (Auto) 74.0 % H % (45.5-73.1) Lymph % (Auto) 18.1 % L % (18.3-44.2) [place] % (Auto) 6.9 % % (2.6-8.5) Eos % (Auto) 0.2 % % (0-4.4) Baso % (Auto) 0.4 % % (0.2-1.2) Lymph # (Auto) 1.83 K/mm3 K/mm3 (0.9-3.2) [place] # (Auto) 0.7 K/mm3 H K/mm3 (0.1-0.6) Eos # (Auto) 0.0 K/mm3 K/mm3 (0-0.3) Baso # (Auto) 0.0 K/mm3 K/mm3 (0.0-0.1) Abs Immat Gran (auto) 0.04 K/mm3 H K/mm3 (0.00-0.031) Absolute Neuts (auto) 7.5 K/mm3 H K/mm3 (1.3-6.7) Absolute Nucleated RBC 0.0 K/mm3 K/mm3 (0.0-0.012) Nucleated RBC % 0.0 % % (0.0-0.2) PT INR APTT Sodium 135 mmol/L L mmol/L (137-145) Potassium 3.6 mmol/L mmol/L (3.4-5.0) Chloride 100 mmol/L mmol/L (98-107) Carbon Dioxide 29 mmol/L mmol/L (22-30) Anion Gap 6 mmol/L L mmol/L (8-16) BUN 5 mg/dL L D mg/dL (7-17) Creatinine 0.50 mg/dL L mg/dL (0.7-1.0) Estim Creat Clear Calc 103 ml/min ml/min Estimated GFR > 60 (59 - ) Glucose 375 mg/dL H mg/dL (65-110) POC Capillary Glucose Lactic Acid Calcium 9.5 mg/dL mg/dL (8.4-10.2) Total Bilirubin Direct Bilirubin AST ALT Alkaline Phosphatase C-Reactive Protein Total Protein Albumin Urine Color Yellow (Yellow) Urine Appearance Clear (Clear) Urine pH 6.0 (5.0-9.0) Ur Specific [place] 1.044 H (1.001-1.035) Urine Protein Negative mg/dL mg/dL (Negative) Urine Glucose (UA) 3+ mg/dL H mg
[2021-07-19 16:14] LABS: Glucose Point of Care 188 mg/dl (65-105)
[2021-07-19] MEDS: LOSARTAN POTASSIUM 50 MG TABLET PO (18:01)
[2021-07-19] MEDS: DULoxetine HCL 60 MG CAPSULE.DR PO (20:37)
[2021-07-19] MEDS: INSULIN GLARGINE (*BKC) 100 UNITS/ML 25 UNITS SUB-Q (20:37)
[2021-07-19 21:05] LABS: Glucose Point of Care 468 mg/dl (65-105)
[2021-07-20] VITALS (7 sets, daily range): BP systolic 96–114; BP diastolic 64–67; PULSE 66–73; RESP 16–18; TEMP 36.1–39.2; O2SAT 93–100
[2021-07-20] MEDS: SODIUM CHLORIDE 0.9% IV 1,000 ML 125 ML IV CONT ×2 (02:37→06:47)
[2021-07-20] MEDS: HYDROmorphone HCL INJ (*CRX) 1 MG/ML SYR IV PUSH ×3 (02:38→20:17)
[2021-07-20 06:16] LABS: Basophils Percent Auto 0.4 % (0.2-1.2); Eosinophils Percent Auto 0.1 % (0-4.4); Hematocrit 36.8 % (37.0-47.0); Hemoglobin 11.4 g/dL (12.0-15.0); Immature Granulocyte Absolute 0.05 K/mm3 (0.00-0.031); Immature Granulocyte Percent A 0.5 % (0-0.5); Lymphocytes Absolute Auto 2.07 K/mm3 (0.9-3.2); Lymphocytes Percent Auto 19.9 % (18.3-44.2); Mean Corpuscular Hemoglobin 28.4 pg (26-34); Mean Corpuscular Volume 91.8 fl (80-100); Mean Platelet Volume 10.7 fl (7.4-10.4); Monocytes Percent Auto 9.8 % (2.6-8.5); Neutrophils Absolute Auto 7.2 K/mm3 (1.3-6.7); Neutrophils Percent Auto 69.3 % (45.5-73.1); Platelet Count Result 292 k/mm3 (150-375); Red Blood Count 4.01 M/mm3 (4.2-5.4); Red Cell Distribution Width 11.5 % (11.5-14.5); White Blood Count 10.4 K/mm3 (4.5-10.0)
[2021-07-20 06:31] LABS: Anion Gap 7 mmol/L (8-16); Blood Urea Nitrogen 6 mg/dL (7-17); Calcium 8.1 mg/dL (8.4-10.2); Carbon Dioxide 24 mmol/L (22-30); Chloride 97 mmol/L (98-107); Estimated CRCL calculation 103 ml/min; Estimated Glomerular Filt Rate > 60; Glucose 396 mg/dL (65-110); Potassium 3.9 mmol/L (3.4-5.0); Sodium 128 mmol/L (137-145)
--- NOTE | 2021-07-20 06:39 | PM.IMPN ---
Progress Note: A&P Assessment and Plan (1) Renal abscess: Code(s): N15.1 - Renal and perinephric abscess Status: Acute Assessment and Plan: CT showing increasing size of irregular mass on the right kidney with a differential of abscess of hypernephroma - A drain was placed 07/19/21 and we are awaiting Gram stain. She had a fever overnight. - Blood cultures NGTD - continue cefepime. White blood cell count mildly elevated 10.4 but CR P fairly elevated -Urology consulted - recheck H&H since patient was on anticoagulation prior to this. She has no signs or symptoms of blood loss such as lightheadedness, dizziness or chest pain (2) Chronic anticoagulation: Code(s): Z79.01 - [facility] (current) use of anticoagulants Status: Chronic Assessment and Plan: Hold Eliquis -On this for DVTs >1 year ago - will restart in a couple days after we see how the abscess response to the drain. The patient is low risk for further clotting since her DVT was over a year ago. 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 I explained her that this is driving up her glucose and she should only have 1-2 glass of this a day. She does not seem motivated to adjust her diet -Pt does not know what her last a1c was except for that it was high. A1c today is pending -A1c in our system 11/2020 was 10.1 -Continue lantus and SSI ( increase to high-dose) and I will restart Januvia and metformin - will likely need to increase basal insulin and possibly do mealtime insulin since the patient is so uncontrolled - her hyperglycemia is causing her to have a falsely low sodium. Corrected sodium is 133-135 (4) Hypertension: Qualifiers: Hypertension type: unspecified Qualified Code(s): I10 - Essential (primary) hypertension Code(s): I10 - Essential (primary) hypertension Status: Chronic Assessment and Plan: Last bp 114/66 -Continue losartan (5) Asthma: Code(s): J45.909 - Unspecified asthma, uncomplicated Status: Acute Assessment and Plan: Pt has had increased cough recently - chest x-ray shows pneumonia versus atelectasis. Patient on cefepime which will cover if there is some component of pneumonia. sputum sample has been ordered -no COVID exposure, she is covid recovered oct 2020 -Continue albuterol MDI (6) Gastroparesis: Code(s): K31.84 - Gastroparesis Status: Inactive Assessment and Plan: Stable Subjective Date/time seen: 07/20/21 06:39 Interval history: Pt is a 51-year-old female here for renal abscess. Patient seen today and states She continues to have pain but it is better than yesterday. She had a fever overnight which resolved with Tylenol. She denies chest pain, diarrhea or constipation. She still has a cough with some shortness of breath but says this is getting better. She has sweet tea at bedside and I explained to her that this is going to worsen her blood glucose and she needs to limit it to 1-2 cups a day. She did not seem motivated to do so. Exam Narrative: General: Well developed well nourished patient in NAD HEENT: normocephalic Neck: supple Neuro: Alert and oriented x4 CV:RRR Resp: Crackles to the left lung, no wheezing or rhonchi. Able to speak in full sentences without conversational dyspnea. Abd: Soft, non distended. pain
[2021-07-20] MEDS: oxyCODONE/ACETAMINOPHEN (*CRX) 5-325 MG TABLET 1 TABLET PO ×2 (06:46→18:26)
[2021-07-20] MEDS: INSULIN ASPART (*BKC) 100 UNITS/ML SUB-Q ×3 (07:17→18:22)
[2021-07-20 07:53] LABS: Glucose Point of Care 379 mg/dl (65-105)
[2021-07-20] MEDS: metFORMIN HCL 500 MG TABLET 1000 MG PO ×2 (08:32→18:16)
[2021-07-20] MEDS: LOSARTAN POTASSIUM 50 MG TABLET PO (08:32)
[2021-07-20] MEDS: PANTOPRAZOLE 40 MG TABLET PO (08:32)
[2021-07-20 08:35] LABS: Hemoglobin A1C 12.6 % (<5.7)
[2021-07-20] MEDS: PREGABALIN (*CRX) 75 MG CAPSULE 150 MG PO ×2 (08:42→18:16)
--- NOTE | 2021-07-20 10:28 | WPDUROPN2 ---
Progress Note: A&P Assessment and Plan (1) Renal abscess: Code(s): N15.1 - Renal and perinephric abscess Status: Acute Assessment and Plan: Cefepime pending blood, urine and abscess cultures. Anticipate indwelling drain for several days - until drainage becomes negligible. Explained to patient. Subjective Subjective Date/Time Seen: 07/20/21 10:28 Comfortable, actually feeling significantly better. Tolerating flank drain. Review of Systems Cardiovascular: Cardiovascular: Denies chest pain, Denies lightheadedness, Denies palpitations and Denies dyspnea Respiratory: Respiratory: Denies dyspnea Gastrointestinal: Gastrointestinal: Denies diarrhea, Denies nausea and Denies vomiting Genitourinary: Genitourinary: Denies hematuria and Denies dysuria Endocrine: Endocrine: Denies palpitations Exam Const: General: no acute distress Resp: Effort & Inspection: normal respiratory effort GI: Inspection: non-distended GI Palp: No abdominal tenderness and No Guarding due to palpation present (GI) Auscultation: normal bowel sounds Objective Data Vital Signs Vital Signs: Vital Signs - 24 hr 07/19/21 14:00 07/19/21 20:00 07/19/21 22:00 Temperature 98.2 F 102.1 F H Pulse Rate 74 74 110 H Respiratory Rate 16 16 16 Blood Pressure 136/68 134/64 Pulse Oximetry 95 95 95 07/20/21 01:20 07/20/21 01:30 07/20/21 05:00 Temperature 102.5 F H 102.5 F H 98.3 F Pulse Rate Respiratory Rate Blood Pressure Pulse Oximetry 93 07/20/21 06:00 07/20/21 06:22 Temperature 98.2 F Pulse Rate 73 Respiratory Rate 16 Blood Pressure 114/66 Pulse Oximetry 100 98 Intake/Output Intake/Output: Intake & Output 07/17/21 07/18/21 07/19/21 07/20/21 23:59 23:59 23:59 23:59 Intake Total 2750 2700 Output Total 600 1000 Balance 2150 1700 Meds/Results Medications: Active Medications Generic Name Dose Route Start Last Admin Trade Name Freq PRN Reason Stop Dose Admin Acetaminophen 650 mg 07/20/21 06:37 Acetaminophen 325 Mg Tablet PO Q6H PRN Mild Pain (1-3) or Fever Albuterol 4 puff 07/19/21 03:41 Albuterol Sulfate (*Sp) Aerosol 1 Puff INHALATION QID PRN shortness of breath or wheezing Dextrose 12.5 gm 07/19/21 10:14 Dextrose 50% 25 Gm/50 Ml Syringe IV PUSH PRN PRN Hypoglycemia Protocol Duloxetine HCl 60 mg 07/19/21 21:00 07/19/21 20:37 Duloxetine Hcl 60 Mg Capsule.Dr PO 60 mg HS MARTIN Administration Glucagon 1 mg 07/19/21 10:14 Glucagon For Inj 1 Mg Vial IM PRN PRN Hypoglycemia Protocol Glucose 15 gm 07/19/21 10:14 Glucose Oral Gel 15 Gm Of Glucse In 37.5 Gm Tube PO PRN PRN Hypoglycemia Protocol Hydromorphone HCl 1 mg 07/19/21 10:53 07/20/21 02:38 Hydromorphone Hcl Inj (*Crx) 1 Mg/Ml Syr IV PUSH 1 mg Q3H PRN Administration Pain Rated 7-10 Cefepime HCl 1 gm in 50 mls @ 100 mls/hr 07/19/21 08:00 07/20/21 09:12 Maxipime 1 Gm/D5w 50 Ml IVPB Infused Q8H MARTIN Infusion Sodium Chloride 1,000 mls @ 100 mls/hr 07/19/21 00:10 07/20/21 06:47 Normal Saline Iv IV CONT 125 mls/hr .Q10H MARTIN Administration Dextrose 1,000 mls @ 100 mls/hr 07/19/21 10:14 Dextrose 5% 1,000 Ml IVPB PRN PRN Hypoglycemia Protocol Insulin Aspart 4 - 8 units 07/20/21 08:00 07/20/21 07:17 Insulin Aspart (*Bkc) 100 Units/Ml SUB-Q 8 units TIDWM MARTIN Administration Protocol Insulin Glargine 25 units 07/19/21 21:00 07/19/21 20:37 Insulin Glargine (*Bkc) 100 Units/Ml SUB-Q 25 units HS MARTIN Administration Losartan Potassium 50 mg 07/19/21 11:35 07/20/21 08:32 Losartan Potassium 50 Mg Tablet PO 50 mg DAILY MARTIN Administration Metformin HCl 1,000 mg 07/20/21 08:00 07/20/21 08:32 Metformin Hcl 500 Mg Tablet PO 1,000 mg BIDWM MARTIN Administration Ondansetron HCl 4 mg 07/19/21 00:06 07/19/21 08:21 Ondansetron Inj 4
[2021-07-20 12:10] LABS: Hematocrit 35.1 % (37.0-47.0); Hemoglobin 11.5 g/dL (12.0-15.0)
[2021-07-20 12:20] LABS: Glucose Point of Care 316 mg/dl (65-105)
[2021-07-20 18:33] LABS: Glucose Point of Care 268 mg/dl (65-105)
[2021-07-20] MEDS: DULoxetine HCL 60 MG CAPSULE.DR PO (20:17)
[2021-07-20] MEDS: INSULIN GLARGINE (*BKC) 100 UNITS/ML 25 UNITS SUB-Q (20:42)
[2021-07-20 21:40] LABS: Glucose Point of Care 261 mg/dl (65-105)
[2021-07-21] MEDS: oxyCODONE/ACETAMINOPHEN (*CRX) 5-325 MG TABLET 1 TABLET PO ×2 (03:59→18:23)
[2021-07-21 06:00] VITALS: BP 110/60; PULSE 67; RESP 16; TEMP 37.1; O2SAT 97
[2021-07-21 06:15] LABS: Basophils Percent Auto 0.3 % (0.2-1.2); Eosinophils Absolute Auto 0.2 K/mm3 (0-0.3); Eosinophils Percent Auto 2.3 % (0-4.4); Hematocrit 32.6 % (37.0-47.0); Hemoglobin 10.4 g/dL (12.0-15.0); Immature Granulocyte Absolute 0.05 K/mm3 (0.00-0.031); Immature Granulocyte Percent A 0.7 % (0-0.5); Lymphocytes Absolute Auto 1.82 K/mm3 (0.9-3.2); Lymphocytes Percent Auto 24.5 % (18.3-44.2); Mean Corpuscular HGB Conc 31.9 g/dl (32-36); Mean Corpuscular Hemoglobin 28.6 pg (26-34); Mean Corpuscular Volume 89.6 fl (80-100); Mean Platelet Volume 10.8 fl (7.4-10.4); Monocytes Absolute Auto 0.5 K/mm3 (0.1-0.6); Monocytes Percent Auto 7.3 % (2.6-8.5); Neutrophils Absolute Auto 4.8 K/mm3 (1.3-6.7); Neutrophils Percent Auto 64.9 % (45.5-73.1); Platelet Count Result 272 k/mm3 (150-375); Red Blood Count 3.64 M/mm3 (4.2-5.4); Red Cell Distribution Width 11.3 % (11.5-14.5); White Blood Count 7.4 K/mm3 (4.5-10.0)
[2021-07-21 06:32] LABS: Anion Gap 7 mmol/L (8-16); Blood Urea Nitrogen 9 mg/dL (7-17); Calcium 8.2 mg/dL (8.4-10.2); Carbon Dioxide 27 mmol/L (22-30); Chloride 98 mmol/L (98-107); Estimated CRCL calculation 125 ml/min; Estimated Glomerular Filt Rate > 60; Glucose 205 mg/dL (65-110); Potassium 3.2 mmol/L (3.4-5.0); Sodium 132 mmol/L (137-145)
[2021-07-21 06:48] LABS: CRP 21.1 mg/dL (<1.0)
[2021-07-21 07:46] LABS: Glucose Point of Care 172 mg/dl (65-105)
[2021-07-21] MEDS: ONDANSETRON INJ 4 MG/2 ML VIAL IV PUSH ×2 (08:46→18:24)
[2021-07-21] MEDS: metFORMIN HCL 500 MG TABLET 1000 MG PO ×2 (08:53→16:43)
[2021-07-21] MEDS: PREGABALIN (*CRX) 75 MG CAPSULE 150 MG PO ×2 (08:53→16:47)
[2021-07-21] MEDS: LOSARTAN POTASSIUM 50 MG TABLET PO (08:53)
[2021-07-21] MEDS: PANTOPRAZOLE 40 MG TABLET PO (08:53)
[2021-07-21] MEDS: POTASSIUM CHLORIDE 20 MEQ TABLET 40 MEQ PO (09:30)
[2021-07-21] MEDS: HYDROmorphone HCL INJ (*CRX) 1 MG/ML SYR IV PUSH (09:33)
[2021-07-21 12:21] LABS: Glucose Point of Care 199 mg/dl (65-105)
--- NOTE | 2021-07-21 12:34 | PM.IMPN ---
Progress Note: A&P Assessment and Plan (1) Renal abscess: Code(s): N15.1 - Renal and perinephric abscess Status: Acute Assessment and Plan: CT showing increasing size of irregular mass on the right kidney with a differential of abscess of hypernephroma - A drain was placed 07/19/21 -Cx growing staph aureus, vanc added 07/20/22 to her cefepime - 1/2 blood cultures + for staph aureus -Urology consulted -She has no signs or symptoms of blood loss such as lightheadedness, dizziness or chest pain (2) Septicemia: Code(s): A41.9 - Sepsis, unspecified organism Status: Acute Assessment and Plan: 07/20/21 pt started having fevers and rigors and was tachycardic on arrival -1/2 blood cultures + for staph aureus 2/2 to above abscess -continue vanc (3) Chronic anticoagulation: Code(s): Z79.01 - nursing home (current) use of anticoagulants Status: Chronic Assessment and Plan: Hold Eliquis -On this for DVTs >1 year ago. 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 A1c today is pending -A1c 12.6 -Continue lantus, SSI, Januvia and metformin - will likely need to increase basal insulin and possibly do mealtime insulin since the patient is so uncontrolled - her hyperglycemia is causing her to have a falsely low sodium. (5) Hypertension: Qualifiers: Hypertension type: unspecified Qualified Code(s): I10 - Essential (primary) hypertension Code(s): I10 - Essential (primary) hypertension Status: Chronic Assessment and Plan: Last bp 110/60 -Continue losartan (6) Asthma: Code(s): J45.909 - Unspecified asthma, uncomplicated Status: Acute Assessment and Plan: Pt has had increased cough recently - chest x-ray shows pneumonia versus atelectasis. Patient on cefepime which will cover if there is some component of pneumonia. sputum sample has been ordered -no COVID exposure, she is covid recovered oct 2020 -Continue albuterol MDI (7) Gastroparesis: Code(s): K31.84 - Gastroparesis Status: Inactive Assessment and Plan: Stable Subjective Date/time seen: 07/21/21 12:34 Interval history: Pt is a 51-year-old female here for renal abscess. Patient seen today and states she continues to have pain but hasn't had a fever since the night before. She denies chest pain, diarrhea or constipation. Her cough is better and worse when she takes a big breath. Exam Narrative: General: Well developed well nourished patient in NAD HEENT: normocephalic Neck: supple Neuro: Alert and oriented x4 CV:RRR Resp: Crackles to the left lung, no wheezing or rhonchi. Able to speak in full sentences without conversational dyspnea. cough with big breaths Abd: Soft, non distended. pain to palpation the right side of the abdomen. Drain intact with bloody/ mucousy output. Positive bowel sounds Extremities: No swelling, erythema, or pain to palpation. Objective Data Vital Signs Vital Signs: Vital Signs - 24 hr 07/20/21 14:00 07/20/21 21:44 07/21/21 06:00 Temperature 97.0 F L 98.6 F 98.7 F Pulse Rate 71 66 67 Respiratory Rate 18 16 16 Blood Pressure 96/64 L 101/67 110/60 Pulse Oximetry 96 95 97 Intake/O
[2021-07-21 13:35] VITALS: BP 97/57; PULSE 62; RESP 14; TEMP 36.3; O2SAT 96
[2021-07-21 18:12] LABS: Glucose Point of Care 216 mg/dl (65-105)
[2021-07-21] MEDS: INSULIN ASPART (*BKC) 100 UNITS/ML SUB-Q (18:13)
[2021-07-21] MEDS: DULoxetine HCL 60 MG CAPSULE.DR PO (20:11)
[2021-07-21] MEDS: INSULIN GLARGINE (*BKC) 100 UNITS/ML 25 UNITS SUB-Q (20:13)
[2021-07-21 21:40] VITALS: BP 126/50; PULSE 64; RESP 16; TEMP 37; O2SAT 96
[2021-07-21 21:53] LABS: Glucose Point of Care 186 mg/dl (65-105)
[2021-07-22] MEDS: oxyCODONE/ACETAMINOPHEN (*CRX) 5-325 MG TABLET 1 TABLET PO ×2 (00:54→19:34)
[2021-07-22 03:15] LABS: Alanine Aminotransferase 14 U/L (4-35); Alkaline Phosphatase 79 U/L (38-126); Anion Gap 6 mmol/L (8-16); Aspartate Amino Transferase 18 U/L (14-36); Bilirubin,Total 0.2 mg/dL (0.2-1.3); Blood Urea Nitrogen 8 mg/dL (7-17); Calcium 8.7 mg/dL (8.4-10.2); Carbon Dioxide 28 mmol/L (22-30); Chloride 101 mmol/L (98-107); Estimated CRCL calculation 103 ml/min; Estimated Glomerular Filt Rate > 60; Glucose 116 mg/dL (65-110); Magnesium 1.6 mg/dL (1.6-2.3); Potassium 3.6 mmol/L (3.4-5.0); Sodium 135 mmol/L (137-145)
[2021-07-22 03:35] LABS: Hematocrit 35.9 % (37.0-47.0); Hemoglobin 11.5 g/dL (12.0-15.0); Mean Corpuscular Hemoglobin 28.8 pg (26-34); Mean Platelet Volume 10.5 fl (7.4-10.4); Platelet Count Result 315 k/mm3 (150-375); Red Blood Count 3.99 M/mm3 (4.2-5.4); Red Cell Distribution Width 11.3 % (11.5-14.5); White Blood Count 5.9 K/mm3 (4.5-10.0)
[2021-07-22 03:59] LABS: Vancomycin Trough 8.3 ug/mL (10.0-20.0)
[2021-07-22 05:54] VITALS: BP 127/75; PULSE 72; RESP 16; TEMP 37.2; O2SAT 93
[2021-07-22 08:07] LABS: Glucose Point of Care 94 mg/dl (65-105)
[2021-07-22] MEDS: PANTOPRAZOLE 40 MG TABLET PO (09:16)
[2021-07-22] MEDS: LOSARTAN POTASSIUM 50 MG TABLET PO (09:16)
[2021-07-22] MEDS: metFORMIN HCL 500 MG TABLET 1000 MG PO ×2 (09:16→17:12)
[2021-07-22] MEDS: PREGABALIN (*CRX) 75 MG CAPSULE 150 MG PO ×2 (09:16→17:13)
[2021-07-22 12:06] LABS: Glucose Point of Care 129 mg/dl (65-105)
--- NOTE | 2021-07-22 12:49 | PM.IMPN ---
Progress Note: A&P Assessment and Plan (1) Renal abscess: Code(s): N15.1 - Renal and perinephric abscess Status: Acute Assessment and Plan: Renal abscess with a culture growing Staph aureus - A drain was placed 07/19/21 -Cx growing staph aureus, vanc added 07/20/22. 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 (4) Diabetes mellitus: Qualifiers: Diabetes mellitus complication detail: with other skin ulcer Diabetes mellitus complication status: with skin complications Diabetes mellitus retirement insulin use: with retirement use Diabetes mellitus type: type 2 Qualified Code(s): E11.622 - Type 2 diabetes mellitus with other skin ulcer; Z79.4 - watermaster (current) use of insulin Code(s): E11.9 - Type 2 diabetes mellitus without complications Status: Chronic Assessment and Plan: Last glucose 129 -A1c 12.6 -Continue lantus, SSI, Januvia and metformin (5) Hypertension: Qualifiers: Hypertension type: unspecified Qualified Code(s): I10 - Essential (primary) hypertension Code(s): I10 - Essential (primary) hypertension Status: Chronic Assessment and Plan: Last bp 127/75 -Continue losartan (6) Asthma: Code(s): J45.909 - Unspecified asthma, uncomplicated Status: Acute Assessment and Plan: Pt has had increased cough recently - chest x-ray shows pneumonia versus atelectasis. Patient on cefepime which will cover if there is some component of pneumonia. sputum sample has been ordered -no COVID exposure, she is covid recovered oct 2020 -Continue albuterol MDI (7) Gastroparesis: Code(s): K31.84 - Gastroparesis Status: Inactive Assessment and Plan: Stable Subjective Date/time seen: 07/22/21 12:49 Interval history: Pt is a 51-year-old female here for renal abscess. Patient was seen today and states her pain is pretty significant when she is walking or moving. She says her pain is 9/ 10 but does not like taking the pain medication because it makes her nauseated sometimes. She denies chest pain, diarrhea or constipation. Her cough is better. Patient states that she had 2 unprovoked DVTs in each leg about a year ago. She has a family history of her mother and aunt both having unprovoked blood clots as well. She has never been genetically tested. Exam Narrative: General: Well developed well nourished patient in NAD HEENT: normocephalic Neck: supple Neuro: Alert and oriented x4 CV:RRR Resp: Crackles to the left lung, no wheezing or rhonchi. Able to speak in full sentences without conversational dyspnea. Abd: Soft, non distended. pain to palpation the right side of the abdomen. Drain intact with bloody/ mucousy output. Positive bowel sounds Extremities: No swelling, erythema, or pain to palpation. Objective Data Vital Signs Vital Signs: Vital Signs - 24 hr 07/21/21 13:35 07/21/21 21:40 07/22/21 05:54 Temperature 97.3 F L 98.6 F 98.9 F Pulse Rate 62 64 72 Respiratory Rate 14 16 16 Blood Pressure 97/57 L 126/50 L 127/75 Pulse Oximetry 96 96 93 Intake/Output Intake/Output: Intake & Output 07/19/21 07/20/21 07/21/2107/01
[2021-07-22] MEDS: HYDROmorphone HCL INJ (*CRX) 1 MG/ML SYR IV PUSH (13:45)
[2021-07-22] MEDS: ONDANSETRON INJ 4 MG/2 ML VIAL IV PUSH (13:45)
[2021-07-22 15:02] VITALS: BP 107/63; PULSE 70; RESP 14; TEMP 36.3; O2SAT 90
--- NOTE | 2021-07-22 16:42 | WPDINFPN2 ---
Progress Note: A&P Assessment and Plan (1) Renal abscess: Code(s): N15.1 - Renal and perinephric abscess Status: Acute Assessment and Plan: ROB renal abscess and bacteremia with infection, due to poorly controlled DM REC Ancef through 08/16. Glycemic control as you are doing. Call if Qs Subjective Date/time seen: 07/22/21 16:42 Objective Data Vital Signs Vital Signs: Vital Signs - 24 hr 07/21/21 21:40 07/22/21 05:54 07/22/21 15:02 Temperature 37.0 C 37.2 C 36.3 C L Pulse Rate 64 72 70 Respiratory Rate 16 16 14 Blood Pressure 126/50 L 127/75 107/63 Pulse Oximetry 96 93 90 Intake/Output Intake/Output: Intake & Output 07/19/21 07/20/21 07/21/21 07/22/21 23:59 23:59 23:59 23:59 Intake Total 2750 5480 1990 860 Output Total 600 1500 820 800 Balance 2150 3980 1170 60 Meds/Results Medications: Active Medications Generic Name Dose Route Start Last Admin Trade Name Freq PRN Reason Stop Dose Admin Acetaminophen 650 mg 07/20/21 06:37 Acetaminophen 325 Mg Tablet PO Q6H PRN Mild Pain (1-3) or Fever Albuterol 4 puff 07/19/21 03:41 Albuterol Sulfate (*Sp) Aerosol 1 Puff INHALATION QID PRN shortness of breath or wheezing Apixaban 5 mg 07/22/21 21:00 Apixaban 5 Mg Tablet PO Q12HR MARTIN Dextrose 12.5 gm 07/19/21 10:14 Dextrose 50% 25 Gm/50 Ml Syringe IV PUSH PRN PRN Hypoglycemia Protocol Duloxetine HCl 60 mg 07/19/21 21:00 07/21/21 20:11 Duloxetine Hcl 60 Mg Capsule.Dr PO 60 mg HS MARTIN Administration Glucagon 1 mg 07/19/21 10:14 Glucagon For Inj 1 Mg Vial IM PRN PRN Hypoglycemia Protocol Glucose 15 gm 07/19/21 10:14 Glucose Oral Gel 15 Gm Of Glucse In 37.5 Gm Tube PO PRN PRN Hypoglycemia Protocol Hydromorphone HCl 1 mg 07/19/21 10:53 07/22/21 13:45 Hydromorphone Hcl Inj (*Crx) 1 Mg/Ml Syr IV PUSH 1 mg Q3H PRN Administration Pain Rated 7-10 Dextrose 1,000 mls @ 100 mls/hr 07/19/21 10:14 Dextrose 5% 1,000 Ml IVPB PRN PRN Hypoglycemia Protocol Cefazolin Sodium 2 gm in 50 mls @ 100 mls/hr 07/22/21 17:00 Ancef 2 Gm/D5w 50 Ml IVPB 08/16/21 17:01 Q8H MARTIN Insulin Aspart 4 - 8 units 07/20/21 08:00 07/22/21 13:58 Insulin Aspart (*Bkc) 100 Units/Ml SUB-Q Not Given TIDWM [facility] Protocol Insulin Glargine 25 units 07/19/21 21:00 07/21/21 20:13 Insulin Glargine (*Bkc) 100 Units/Ml SUB-Q 25 units HS MARTIN Administration Losartan Potassium 50 mg 07/19/21 11:35 07/22/21 09:16 Losartan Potassium 50 Mg Tablet PO 50 mg DAILY MARTIN Administration Metformin HCl 1,000 mg 07/20/21 08:00 07/22/21 09:16 Metformin Hcl 500 Mg Tablet PO 1,000 mg BIDWM MARTIN Administration Ondansetron HCl 4 mg 07/19/21 00:06 07/22/21 13:45 Ondansetron Inj 4 Mg/2 Ml Vial IV PUSH 4 mg Q4H PRN Administration Nausea Oxycodone/Acetaminophen 1 tablet 07/19/21 10:54 07/22/21 00:54 Oxycodone/Acetaminophen (*Crx) 5-325 Mg Tablet PO 1 tablet Q6H PRN Administration Pain Rated 4-6 if eating Pantoprazole Sodium 40 mg 07/19/21 09:00 07/22/21 09:16 Pantoprazole 40 Mg Tablet PO 40 mg QAM MARTIN Administration Pregabalin 150 mg 07/19/21 09:00 07/22/21 09:16 Pregabalin (*Crx) 75 Mg Capsule PO 150 mg BID MARTIN Administration Sitagliptin Phosphate 100 mg 07/20/21 08:00 07/22/21 09:16 Sitagliptin 100 Mg Tablet PO 100 mg DAILY@0800 MARTIN Administration Radiology Results: ITS Impressions Abdomen/Pelvis CT 07/18/21 22:55 IMPRESSION: Increased size of posterior right renal hypoattenuating irregular mass measuring up to 3.1 x 4.5 x 6.4 cm. Differential diagnosis includes renal abscess, less likely cystic hypernephroma. Urologist consultation is recommended. Chest X-Ray 07/19/21 15:06 IMPRESSION: 1. Airspace opacities at left lung base, consistent with atelectasis versus pneumonia.
[2021-07-22] MEDS: ceFAZolin 2 GM/D5W 50 ML 2 GM/50 ML BAG IVPB (17:13)
[2021-07-22 17:29] LABS: Glucose Point of Care 126 mg/dl (65-105)
--- NOTE | 2021-07-22 18:26 | CONS_ITS ---
DATE OF CONSULTATION: 07/22/2021 REASON FOR CONSULTATION: Renal abscess. HISTORY OF PRESENT ILLNESS: A 51-year-old female with type 2 diabetes mellitus, has been poorly controlled as of November when she was here with a perirectal abscess that required washout. She also had gastritis seen at that time on upper endoscopy. She presented to the hospital on July 19 with 3 weeks of right flank pain, largely anterior aspect, also low lumbar back pain bilaterally and midline. She had some nausea with vomiting early in her illness, now nausea only. No fevers, chills, or sweats that she knows of. She has had no previous bloodstream infection. She denies voiding complaints, gross hematuria, previous operations or other procedures, kidney stones in the past, recent antibiotic use or recent immunosuppressant use. Here the patient has been given cefepime and vancomycin, antibiotic day 4. The patient has not required any surgical intervention while here, but did go to Interventional Radiology where she had a percutaneous drainage of a renal abscess. ALLERGIES: NONE KNOWN. HABITS: No tobacco. No alcohol. PRESENT MEDICATIONS: As above. PAST MEDICAL HISTORY: In addition to the above, coronavirus infection last winter, prior DVT, H pylori infection, hyperlipidemia, hypertension, peripheral neuropathy, colon polyp, , and tonsillectomy. REVIEW OF SYSTEMS: , GI, constitutional, respiratory, musculoskeletal negative other than pain in the right flank that worsens when she coughs or takes a deep breath. Otherwise, she has no true dyspnea. FAMILY HISTORY: Not pertinent to her present illness. SOCIAL HISTORY: No family at the bedside. She lives locally. PHYSICAL EXAMINATION: GENERAL: Middle-aged female who appears her actual age, in no distress. VITAL SIGNS: Temperature shortly after arrival up to 39.2, has fully defervesced past 48 hours plus. SKIN: No generalized rashes. Warm and dry. She has no pustules. EENT: The conjunctivae are normal. Pupils equal, round, and reactive to light. The oropharynx, oral mucosa normal. NECK: No meningismus, thyromegaly, or mass. LUNGS: Clear to auscultation and percussion. BACK: She has a right CVA region percutaneous drain with dark brown cloudy fluid. She has CVAT on that side. No CVAT on the left. She has no spinal tenderness. CARDIAC: Regular rate and rhythm. No murmur, gallop, or rub. ABDOMEN: Tender right flank. Elsewhere, no tenderness, mass, distention, or organomegaly. EXTREMITIES: No clubbing, cyanosis, edema. Well perfused. LABORATORY DATA: Blood cultures 1 of 2 sets, susceptible Staph aureus obtained on the . Urine with the same organism, though susceptibility not yet completed. From the abscess fluid, apparently not sent, although the above urine specimen may in fact be her drainage specimen. Other labs white count 10.1, has been normal past 3 days. Hemoglobin is 11.5, which is stable and platelets are 315. Differential earlier showed no abnormalities. She has mild hyponatremia. Creatinine 0.5. Accu-Cheks variable 116 up to 396. Hemoglobin A1c 12.6%, which is worse compared to the last winter. Liver function tests normal. CRP 9.0, which is declining. Urinalysis 3+ glucose, otherwise normal. RADIOLOGY: Abdomen and pelvic CT showed constipation, right renal hypoattenuating irregular mass, worse since 07/04. ASSESSMENT: 1. Staph aureus renal abscess with resulting bacteremia and infection with the same organism. I cannot fully exclude the converse where the bacteremia was the original inciting event. However, she had no symptoms whatsoever until her flank pain began. 2. Leukocytosis and fever due to the above, appears to be improving. 3. Diabetes mellitus with poor contro
--- NOTE | 2021-07-22 18:41 | WPDUROPN2 ---
Progress Note: A&P Assessment and Plan (1) Renal abscess: Code(s): N15.1 - Renal and perinephric abscess Status: Acute Assessment and Plan: Slow, steady drainage from renal drain. Will repeat CT-abd. tomorrow. Subjective Subjective Date/Time Seen: 07/22/21 18:41 Comfortable Review of Systems Cardiovascular: Cardiovascular: Denies chest pain, Denies lightheadedness, Denies palpitations and Denies dyspnea Respiratory: Respiratory: Denies dyspnea Gastrointestinal: Gastrointestinal: Denies diarrhea, Denies nausea and Denies vomiting Genitourinary: Genitourinary: Denies hematuria and Denies dysuria Endocrine: Endocrine: Denies palpitations Exam Const: General: no acute distress Resp: Effort & Inspection: normal respiratory effort GI: Inspection: non-distended GI Palp: No abdominal tenderness and No Guarding due to palpation present (GI) Auscultation: normal bowel sounds Objective Data Vital Signs Vital Signs: Vital Signs - 24 hr 07/21/21 21:40 07/22/21 05:54 07/22/21 15:02 Temperature 98.6 F 98.9 F 97.3 F L Pulse Rate 64 72 70 Respiratory Rate 16 16 14 Blood Pressure 126/50 L 127/75 107/63 Pulse Oximetry 96 93 90 Intake/Output Intake/Output: Intake & Output 07/19/21 07/20/21 07/21/21 07/22/21 23:59 23:59 23:59 23:59 Intake Total 2750 5480 1990 1650 Output Total 600 2810 811 5245 Balance 2150 3980 1170 -120 Meds/Results Medications: Active Medications Generic Name Dose Route Start Last Admin Trade Name Freq PRN Reason Stop Dose Admin Acetaminophen 650 mg 07/20/21 06:37 Acetaminophen 325 Mg Tablet PO Q6H PRN Mild Pain (1-3) or Fever Albuterol 4 puff 07/19/21 03:41 Albuterol Sulfate (*Sp) Aerosol 1 Puff INHALATION QID PRN shortness of breath or wheezing Apixaban 5 mg 07/22/21 21:00 Apixaban 5 Mg Tablet PO Q12HR MARTIN Dextrose 12.5 gm 07/19/21 10:14 Dextrose 50% 25 Gm/50 Ml Syringe IV PUSH PRN PRN Hypoglycemia Protocol Duloxetine HCl 60 mg 07/19/21 21:00 07/21/21 20:11 Duloxetine Hcl 60 Mg Capsule.Dr PO 60 mg HS MARTIN Administration Glucagon 1 mg 07/19/21 10:14 Glucagon For Inj 1 Mg Vial IM PRN PRN Hypoglycemia Protocol Glucose 15 gm 07/19/21 10:14 Glucose Oral Gel 15 Gm Of Glucse In 37.5 Gm Tube PO PRN PRN Hypoglycemia Protocol Hydromorphone HCl 1 mg 07/19/21 10:53 07/22/21 13:45 Hydromorphone Hcl Inj (*Crx) 1 Mg/Ml Syr IV PUSH 1 mg Q3H PRN Administration Pain Rated 7-10 Dextrose 1,000 mls @ 100 mls/hr 07/19/21 10:14 Dextrose 5% 1,000 Ml IVPB PRN PRN Hypoglycemia Protocol Cefazolin Sodium 2 gm in 50 mls @ 100 mls/hr 07/22/21 17:00 07/22/21 17:13 Ancef 2 Gm/D5w 50 Ml IVPB 08/16/21 17:01 100 mls/hr Q8H MARTIN Administration Insulin Aspart 4 - 8 units 07/20/21 08:00 07/22/21 13:58 Insulin Aspart (*Bkc) 100 Units/Ml SUB-Q Not Given TIDWM MARTIN Protocol Insulin Glargine 25 units 07/19/21 21:00 07/21/21 20:13 Insulin Glargine (*Bkc) 100 Units/Ml SUB-Q 25 units HS MARTIN Administration Losartan Potassium 50 mg 07/19/21 11:35 07/22/21 09:16 Losartan Potassium 50 Mg Tablet PO 50 mg DAILY MARTIN Administration Metformin HCl 1,000 mg 07/20/21 08:00 07/22/21 17:12 Metformin Hcl 500 Mg Tablet PO 1,000 mg BIDWM MARTIN Administration Ondansetron HCl 4 mg 07/19/21 00:06 07/22/21 13:45 Ondansetron Inj 4 Mg/2 Ml Vial IV PUSH 4 mg Q4H PRN Administration Nausea Oxycodone/Acetaminophen 1 tablet 07/19/21 10:54 07/22/21 00:54 Oxycodone/Acetaminophen (*Crx) 5-325 Mg Tablet PO 1 tablet Q6H PRN Administration Pain Rated 4-6 if eating Pantoprazole Sodium 40 mg 07/19/21 09:00 07/22/21 09:16 Pantoprazole 40 Mg Tablet PO 40 mg QAM MARTIN Administration Pregabalin 150 mg 07/19/21 09:00 07/22/21 17:13 Pregabalin (*Crx) 75 Mg Capsule PO 150
[2021-07-22 20:00] VITALS: PULSE 71; RESP 16; O2SAT 98
[2021-07-22] MEDS: INSULIN GLARGINE (*BKC) 100 UNITS/ML 25 UNITS SUB-Q (21:13)
[2021-07-22] MEDS: APIXABAN 5 MG TABLET PO (21:14)
[2021-07-22] MEDS: DULoxetine HCL 60 MG CAPSULE.DR PO (21:14)
[2021-07-22 21:18] LABS: Glucose Point of Care 204 mg/dl (65-105)
[2021-07-22 21:23] VITALS: BP 92/54; PULSE 71; RESP 16; TEMP 36.3; O2SAT 98
[2021-07-23] MEDS: ceFAZolin 2 GM/D5W 50 ML 2 GM/50 ML BAG IVPB ×3 (00:07→17:51)
[2021-07-23 05:36] VITALS: BP 106/55; PULSE 75; RESP 16; TEMP 36.4; O2SAT 95
[2021-07-23 06:00] LABS: Hematocrit 35.4 % (37.0-47.0); Hemoglobin 11.1 g/dL (12.0-15.0); Mean Corpuscular HGB Conc 31.4 g/dl (32-36); Mean Corpuscular Hemoglobin 28.7 pg (26-34); Mean Corpuscular Volume 91.5 fl (80-100); Mean Platelet Volume 10.4 fl (7.4-10.4); Platelet Count Result 324 k/mm3 (150-375); Red Blood Count 3.87 M/mm3 (4.2-5.4); Red Cell Distribution Width 11.6 % (11.5-14.5); White Blood Count 5.4 K/mm3 (4.5-10.0)
[2021-07-23 06:33] LABS: Anion Gap 7 mmol/L (8-16); Blood Urea Nitrogen 8 mg/dL (7-17); Calcium 8.4 mg/dL (8.4-10.2); Carbon Dioxide 30 mmol/L (22-30); Chloride 97 mmol/L (98-107); Estimated CRCL calculation 125 ml/min; Estimated Glomerular Filt Rate > 60; Glucose 98 mg/dL (65-110); Potassium 3.9 mmol/L (3.4-5.0); Sodium 134 mmol/L (137-145)
[2021-07-23] MEDS: oxyCODONE/ACETAMINOPHEN (*CRX) 5-325 MG TABLET 1 TABLET PO ×2 (06:49→17:51)
--- NOTE | 2021-07-23 07:56 | PM.IMPN ---
Progress Note: A&P Assessment and Plan (1) Renal abscess: Code(s): N15.1 - Renal and perinephric abscess Status: Acute Assessment and Plan: Urologist consulted. Right Renal drain placed on 07/19/2021. Culture grew Staph aureus. Slow, steady drainage from renal drain. ID Dr. short consulted. Recommended tight glycemic control, IV Ancef to for 4 full weeks of antibiotics. Then OK to D/C home with home Health (PICC/IV antibiotic therapy at home). Care Coordination working on coverage and discharge arrangements. CT abdomen repeated today: lung bases demonstrate mild atelectasis. There are small pleural effusions. The heart size is normal. There are coronary artery calcifications. No pericardial effusion. There is diffuse hepatic steatosis. The gallbladder, spleen, pancreas, adrenal glands, and left kidney are normal. There is a percutaneous drain adjacent to the right kidney with surrounding fat stranding. No significant residual fluid. There are no dilated loops of bowel. The appendix is normal. There are no pathologically enlarged lymph nodes. There is no free intraperitoneal fluid. There is mild thoracolumbar spondylosis. (2) DVT (deep venous thrombosis): Code(s): I82.409 - Acute embolism and thrombosis of unspecified deep veins of unspecified lower extremity Status: Acute Assessment and Plan: history of 2 unprovoked DVTs in each leg about a year ago. family history of her mother and aunt both having unprovoked blood clots as well. never been genetically tested - genetic/ hematology tests (Factor V, etc.) ordered on 07/22/2021 - results remain pending. on Eliquis 5 mg Q 12 Hours at this time. no s/s of bleeding today. H/H stable = 11.1/35.4 with platelets 324 ordered PT/OT Subjective Date/time seen: 07/23/21 07:56 Interval history: Madhavi is a 51-year-old female being treated for right renal abscess. She is feeling better today and pain was controlled at rest. But increases with ambulation. She is having minimal drainage per renal drain, but it continues to appear purulent. She was able to reposition in bed. Denies having any kind of infection like this in the past. States that she has no appetite and hasn't eaten breakfast yet. Repeating her CT scan today. Care Coordination preparing for discharge to home with PICC and Ancef for 4 weeks per ID instructions. She denies chest pain or pressure, denies SOB or cough, denies N/V, diarrhea or constipation. Review of Systems Review of Systems: All systems reviewed & are unremarkable except as noted in HPI and below Constitutional: Constitutional: Reports as per HPI, Denies chills, Denies fatigue, Denies fever(s) and Denies malaise Eyes: Eyes: Reports as per HPI and Denies change in vision ENT: Reports as per HPI, Reports Normal hearing present, Denies dysphagia, Denies epistaxis, Denies nasal congestion, Denies nasal discharge, Denies nasal obstruction and Denies odynophagia Cardiovascular: Cardiovascular: Reports as per HPI, Denies chest pain, Denies pedal edema, Denies irregular heart rhythm, Denies claudication, Denies leg edema, Denies lightheadedness, Denies radiating jaw, neck or arm pain, Denies palpitations, Denies dyspnea and Denies dyspnea on exertion Respiratory: Respiratory: Reports as per HPI, Reports no additional respiratory complaints, Denies cough, Denies hemoptysis, Denies dyspnea, Denies dyspnea on exertion and Denies wheezing Gastrointestinal: Gastrointestinal: Reports as per HPI, Denies abdominal pain (none today), Denies melena, Denies dysphagia, Denies heartburn, Denies diarrhea, Denies nausea, Denies odynophagia, Denies vomiting (none today, but also hasn't eaten yet) and Denies hematemesis Genitourinary: Genitourinary: Reports as per HPI, Denies hematuria, Denies dysuria, Denies pelvic pain, Reports flank pain, Denies urinary incontinence and Denies urinary urgency Musculoskeletal: Musculoskeletal: Reports no leda
[2021-07-23 08:01] LABS: Glucose Point of Care 94 mg/dl (65-105)
[2021-07-23] MEDS: PANTOPRAZOLE 40 MG TABLET PO (08:25)
[2021-07-23] MEDS: metFORMIN HCL 500 MG TABLET 1000 MG PO ×2 (08:25→17:50)
[2021-07-23] MEDS: APIXABAN 5 MG TABLET PO ×2 (08:25→20:18)
[2021-07-23] MEDS: LOSARTAN POTASSIUM 50 MG TABLET PO (08:25)
[2021-07-23] MEDS: PREGABALIN (*CRX) 75 MG CAPSULE 150 MG PO ×2 (08:28→17:51)
--- NOTE | 2021-07-23 10:02 | WPDUROPN2 ---
Progress Note: A&P Assessment and Plan (1) Renal abscess: Code(s): N15.1 - Renal and perinephric abscess Status: Acute Assessment and Plan: Continue IV antibiotics, abscess fluid grew staph. Patient is improving overall, her drain is causing pain in the right flank. We will repeat a CT scan today to assess abscess if noted improvement, will discuss drain removal with Dr. Marie. Subjective Subjective Date/Time Seen: 07/23/21 10:02 Patient is day 4 s/p CT guided abscess aspiration with imaging. Her WBC is within normal limits at this time at 5.4, creatinine is 0.40 she is afebrile and pain is improved. Her drain in the right flank is draining bloody drainage and is causing tenderness at the insertion site. We will obtain a CT today to observer the abscess. Review of Systems Cardiovascular: Cardiovascular: Denies chest pain Respiratory: Respiratory: Reports no additional respiratory complaints Gastrointestinal: Gastrointestinal: Denies abdominal pain, Denies nausea and Denies vomiting Genitourinary: Genitourinary: Denies dysuria, Denies pelvic pain, Reports flank pain and Denies urinary urgency Exam Resp: Effort & Inspection: normal respiratory effort Cardio: Rate: regular rate GI: GI Palp: Yes Soft to palpation and No Tenderness to palpation present (GI) : General: Yes CVA tenderness on the right and Yes other (renal drain, right side is draining bloody drainage, tender at insertion) Extrem: General: no edema Objective Data Vital Signs Vital Signs: Vital Signs - 24 hr 07/22/21 15:02 07/22/21 20:00 07/22/21 21:23 Temperature 97.3 F L 97.4 F L Pulse Rate 70 71 71 Respiratory Rate 14 16 16 Blood Pressure 107/63 92/54 L Pulse Oximetry 90 98 98 07/23/21 05:36 Temperature 97.5 F L Pulse Rate 75 Respiratory Rate 16 Blood Pressure 106/55 L Pulse Oximetry 95 Intake/Output Intake/Output: Intake & Output 07/20/21 07/21/21 07/22/21 07/23/21 23:59 23:59 23:59 23:59 Intake Total 5480 1990 1700 450 Output Total 8568 486 3167 900 Balance 3980 1170 -70 -889 Meds/Results Medications: Active Medications Generic Name Dose Route Start Last Admin Trade Name Freq PRN Reason Stop Dose Admin Acetaminophen 650 mg 07/20/21 06:37 Acetaminophen 325 Mg Tablet PO Q6H PRN Mild Pain (1-3) or Fever Albuterol 4 puff 07/19/21 03:41 Albuterol Sulfate (*Sp) Aerosol 1 Puff INHALATION QID PRN shortness of breath or wheezing Apixaban 5 mg 07/22/21 21:00 07/23/21 08:25 Apixaban 5 Mg Tablet PO 5 mg Q12HR MARTIN Administration Dextrose 12.5 gm 07/19/21 10:14 Dextrose 50% 25 Gm/50 Ml Syringe IV PUSH PRN PRN Hypoglycemia Protocol Duloxetine HCl 60 mg 07/19/21 21:00 07/22/21 21:14 Duloxetine Hcl 60 Mg Capsule.Dr PO 60 mg HS MARTIN Administration Glucagon 1 mg 07/19/21 10:14 Glucagon For Inj 1 Mg Vial IM PRN PRN Hypoglycemia Protocol Glucose 15 gm 07/19/21 10:14 Glucose Oral Gel 15 Gm Of Glucse In 37.5 Gm Tube PO PRN PRN Hypoglycemia Protocol Hydromorphone HCl 1 mg 07/19/21 10:53 07/22/21 13:45 Hydromorphone Hcl Inj (*Crx) 1 Mg/Ml Syr IV PUSH 1 mg Q3H PRN Administration Pain Rated 7-10 Dextrose 1,000 mls @ 100 mls/hr 07/19/21 10:14 Dextrose 5% 1,000 Ml IVPB PRN PRN Hypoglycemia Protocol Cefazolin Sodium 2 gm in 50 mls @ 100 mls/hr 07/22/21 17:00 07/23/21 08:25 Ancef 2 Gm/D5w 50 Ml IVPB 08/16/21 17:01 100 mls/hr Q8H MARTIN Administration Insulin Aspart 4 - 8 units 07/20/21 08:00 07/23/21 08:23 Insulin Aspart (*Bkc) 100 Units/Ml SUB-Q Not Given TIDWM MARTIN Protocol Insulin Glargine 25 units 07/19/21 21:00 07/22/21 21:13 Insulin Glargine (*Bkc) 100 Units/Ml SUB-Q 25 units HS MARTIN Administration Losartan Potassium 50 mg 07/19/21 11:35 07/23/21 08:25 Losartan Potassium 50 Mg Tablet PO 50 mg DAILY MARTIN Admin
[2021-07-23 12:03] LABS: Glucose Point of Care 104 mg/dl (65-105)
[2021-07-23 13:40] VITALS: BP 111/63; PULSE 72; RESP 16; TEMP 36.1; O2SAT 98
[2021-07-23 18:13] LABS: Glucose Point of Care 91 mg/dl (65-105)
[2021-07-23 20:00] VITALS: PULSE 72; RESP 16; O2SAT 98
[2021-07-23] MEDS: DULoxetine HCL 60 MG CAPSULE.DR PO (20:18)
[2021-07-23] MEDS: INSULIN GLARGINE (*BKC) 100 UNITS/ML 25 UNITS SUB-Q (20:18)
[2021-07-23 20:53] LABS: Glucose Point of Care 120 mg/dl (65-105)
[2021-07-23 21:23] VITALS: BP 133/74; PULSE 74; RESP 16; TEMP 36.4; O2SAT 96
[2021-07-24] MEDS: oxyCODONE/ACETAMINOPHEN (*CRX) 5-325 MG TABLET 1 TABLET PO (01:14)
[2021-07-24] MEDS: ceFAZolin 2 GM/D5W 50 ML 2 GM/50 ML BAG IVPB ×3 (01:16→16:01)
[2021-07-24 03:21] LABS: Anti Cardio Antibody IgM 7.4 MPL-U/mL (<20.0); Anti Cardiolipin Antibody IgA 5.3 APL-U/mL (<20.0); Anti Cardiolipin Antibody IgG <2.0 GPL-U/mL (<20.0)
[2021-07-24 06:00] VITALS: BP 156/72; PULSE 71; RESP 16; TEMP 36.1; O2SAT 97
[2021-07-24 08:08] LABS: Glucose Point of Care 96 mg/dl (65-105)
[2021-07-24] MEDS: LIDOCAINE HCL 1% PF INJ 5 ML VIAL INFILTRATE (08:50)
[2021-07-24] MEDS: APIXABAN 5 MG TABLET PO (09:31)
[2021-07-24] MEDS: PREGABALIN (*CRX) 75 MG CAPSULE 150 MG PO ×2 (09:31→17:05)
[2021-07-24] MEDS: metFORMIN HCL 500 MG TABLET 1000 MG PO (09:31)
[2021-07-24] MEDS: LOSARTAN POTASSIUM 50 MG TABLET PO (09:31)
[2021-07-24] MEDS: PANTOPRAZOLE 40 MG TABLET PO (09:31)
[2021-07-24] MEDS: ONDANSETRON INJ 4 MG/2 ML VIAL IV PUSH (09:39)
[2021-07-24] MEDS: HYDROmorphone HCL INJ (*CRX) 1 MG/ML SYR IV PUSH (09:39)
[2021-07-24 11:54] LABS: Glucose Point of Care 122 mg/dl (65-105)
--- NOTE | 2021-07-24 13:00 | PM.DS ---
DS: Admitting Diagnosis Admitting Diagnosis renal abscess DS: Discharge Diagnosis Discharge Diagnosis (1) Renal abscess: Code(s): N15.1 - Renal and perinephric abscess Status: Acute Assessment and Plan: Renal abscess with a culture growing Staph aureus - A drain was placed 07/19/21 and pulled 07/25/21 -ID was consulted and recommended ancef through 08/16/21 - 1/2 blood cultures + for staph aureus. 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 -home Eliquis restarted -genetic w/u pending, no abnormalities noted so far but will monitor until all are back (4) Diabetes mellitus: Qualifiers: Diabetes mellitus complication detail: with other skin ulcer Diabetes mellitus complication status: with skin complications Diabetes mellitus detention insulin use: with director long term care use Diabetes mellitus type: type 2 Qualified Code(s): E11.622 - Type 2 diabetes mellitus with other skin ulcer; Z79.4 - technician terminal and repeater (current) use of insulin Code(s): E11.9 - Type 2 diabetes mellitus without complications Status: Chronic Assessment and Plan: Last glucose 122 -A1c 12.6 -Continue lantus, SSI, Januvia and metformin (5) Hypertension: Qualifiers: Hypertension type: unspecified Qualified Code(s): I10 - Essential (primary) hypertension Code(s): I10 - Essential (primary) hypertension Status: Chronic Assessment and Plan: Last bp 127/57 -Continue losartan (6) Asthma: Code(s): J45.909 - Unspecified asthma, uncomplicated Status: Acute Assessment and Plan: cough resolved - chest x-ray shows pneumonia versus atelectasis. No PNA suspected -no COVID exposure, she is covid recovered oct 2020 -Continue albuterol MDI (7) Gastroparesis: Code(s): K31.84 - Gastroparesis Status: Inactive Assessment and Plan: Stable DS: Summary Hospital Course Hospital Course: DOS 07/24/21 Patient is a 51-year-old female with uncontrolled diabetes who presented emergency room for flank pain found to have renal abscess. Vitals in the ER were white blood cell count 10.1, hemoglobin 13.4, hematocrit 41.8, platelets 345. BMP relatively normal with the exception of glucose which was 375. Lactic acid normal, UA nonsuspicious free UTI. Patient was admitted to the hospitalist service and started on cefepime. A drain was placed by Interventional Radiology into the abscess and the culture grew Staph aureus. She was switched to vancomycin and received that for a couple days until sensitivities came back and then she was switched to Ancef after Infectious Disease was consulted. 1 out of 2 initial blood cultures were positive for Staph aureus as well with the same sensitivities as the abscess. Infectious Disease recommended Ancef through August 16. The patient initially had a fever but this resolved with antibiotics. Her glucose was initially very elevated but with diet changes and medications it became into a normal range. She did well throughout her stay the day of discharge ready to go. She was placed on home IV antibiotics Ancef and Alex thao NP is going to follow his CBC and a BMP weekly. She is going to continue these antibiotics until August 16 and follow-up with urology. Overall, the patient was feeling well and ready for discharge. She was educated about the worrisome signs and symptoms come back to emergency room for and was discharged in stable condit
[2021-07-24 14:00] VITALS: BP 124/57; PULSE 72; RESP 16; TEMP 36.1; O2SAT 93
[2021-07-24] MEDS: CENTRAL LINE FLUSH 10 ML IV PUSH (16:06)
--- NOTE | 2021-07-24 16:07 | WPDUROPN2 ---
Progress Note: A&P Assessment and Plan (1) Renal abscess: Code(s): N15.1 - Renal and perinephric abscess Status: Acute Assessment and Plan: Patient's drain was removed today without difficulty at the bedside, the patient experienced minimal pain. A dry dressing was placed and she was instructed to wash the drain site daily with soap and water and pat dry. She should change her dressing daily and PRN. (2) Septicemia: Code(s): A41.9 - Sepsis, unspecified organism Status: Acute Assessment and Plan: The patient is going home with a PICC line and will follow up in our office in a few weeks with Dr. Marie. Ok to discharge home. Subjective Subjective Date/Time Seen: 07/24/21 16:07 Patient is day 5 s/p CT guided abscess aspiration with imaging. Her WBC and creatinine are within normal limits at this time. She is afebrile and pain is improved. Her drain in the right flank is draining bloody drainage and is causing tenderness at the insertion site. CT yesterday shows significant improvement of the renal abscess in size. Her renal drain will be removed today. Review of Systems Cardiovascular: Cardiovascular: Denies chest pain Respiratory: Respiratory: Reports no additional respiratory complaints Gastrointestinal: Gastrointestinal: Denies abdominal pain, Denies nausea and Denies vomiting Genitourinary: Genitourinary: Reports hematuria, Denies dysuria and Reports flank pain Exam Resp: Effort & Inspection: normal respiratory effort Cardio: Rate: regular rate GI: GI Palp: Yes Soft to palpation and No Tenderness to palpation present (GI) : General: Yes CVA tenderness on the right and Yes other (Renal Drain intact and sutured in place, draining to gravity, dressing dry.) Extrem: General: no edema Objective Data Vital Signs Vital Signs: Vital Signs - 24 hr 07/23/21 20:00 07/23/21 21:23 07/24/21 06:00 Temperature 97.6 F 97.0 F L Pulse Rate 72 74 71 Respiratory Rate 16 16 16 Blood Pressure 133/74 156/72 H Pulse Oximetry 98 96 97 07/24/21 14:00 Temperature 97.0 F L Pulse Rate 72 Respiratory Rate 16 Blood Pressure 124/57 L Pulse Oximetry 93 Intake/Output Intake/Output: Intake & Output 07/21/21 07/22/21 07/23/21 07/24/21 23:59 23:59 23:59 23:59 Intake Total 1989 1700 1410 940 Output Total 820 1770 1450 600 Balance 1770 -70 -77 340 Meds/Results Medications: Active Medications Generic Name Dose Route Start Last Admin Trade Name Freq PRN Reason Stop Dose Admin Acetaminophen 650 mg 07/20/21 06:37 Acetaminophen 325 Mg Tablet PO Q6H PRN Mild Pain (1-3) or Fever Albuterol 4 puff 07/19/21 03:41 Albuterol Sulfate (*Sp) Aerosol 1 Puff INHALATION QID PRN shortness of breath or wheezing Apixaban 5 mg 07/22/21 21:00 07/24/21 09:31 Apixaban 5 Mg Tablet PO 5 mg Q12HR MARTIN Administration Dextrose 12.5 gm 07/19/21 10:14 Dextrose 50% 25 Gm/50 Ml Syringe IV PUSH PRN PRN Hypoglycemia Protocol Duloxetine HCl 60 mg 07/19/21 21:00 07/23/21 20:18 Duloxetine Hcl 60 Mg Capsule.Dr PO 60 mg HS MARTIN Administration Glucagon 1 mg 07/19/21 10:14 Glucagon For Inj 1 Mg Vial IM PRN PRN Hypoglycemia Protocol Glucose 15 gm 07/19/21 10:14 Glucose Oral Gel 15 Gm Of Glucse In 37.5 Gm Tube PO PRN PRN Hypoglycemia Protocol Hydromorphone HCl 1 mg 07/19/21 10:53 07/24/21 09:39 Hydromorphone Hcl Inj (*Crx) 1 Mg/Ml Syr IV PUSH 1 mg Q3H PRN Administration Pain Rated 7-10 Dextrose 1,000 mls @ 100 mls/hr 07/19/21 10:14 Dextrose 5% 1,000 Ml IVPB PRN PRN Hypoglycemia Protocol Cefazolin Sodium 2 gm in 50 mls @ 100 mls/hr 07/22/21 17:00 07/24/21 16:01 Ancef 2 Gm/D5w 50 Ml IVPB 08/16/21 17:01 100 mls/hr Q8H MARTIN Administration Insulin Aspart 4 - 8 units 07/20/21 08:00 07/24/21 13:07 Insulin Aspart (*Bkc) 100 Units/Ml SUB-Q Not Given
[2021-07-25 03:36] LABS: Hexagonal Phase Confirm Negative (Negative); Lupus dRVVT 1:1 Mix Interpreta Not Indicated; Lupus dRVVT Screen 42 sec (<=45); PTT-LA Screen 41 sec (<=40)
--- NOTE | 2021-07-30 11:22 | PC.NURSE ---
Blood cx is negative. ALYSE is negative. Coag labs are negative/ WNL MTHFRis
--- NOTE | 2021-07-30 11:23 | PC.NURSE ---
Blood cx and ALYSE are negative. Coag labs are WNL/negative MTHFR positive for one copy of [id number] variant. LEIDY Celestin aware. Results faxed to Dr. Victor at [facility].
== END 2021-07-24 17:16 | disposition home health service (06) | DRG 720 ==
LOC: ANHED 07-19 00:08 → ANH2MED 07-19 00:24
PROVIDERS: General Practice; Nurse Practitioner; Admitting Provider Internal Medicine; Emergency Provider Emergency Medicine; PCP Physician Assistant; Visit Provider Physician Assistant
DX: A41.01 Sepsis due to Methicillin susceptible Staphylococcus aureus (principal); N15.1 Renal and perinephric abscess; E11.42 Type 2 diabetes mellitus with diabetic polyneuropathy; E11.43 Type 2 diabetes mellitus with diabetic autonomic (poly)neuropathy; K31.84 Gastroparesis; J45.909 Unspecified asthma, uncomplicated; I10 Essential (primary) hypertension; E78.5 Hyperlipidemia, unspecified; K21.9 Gastro-esophageal reflux disease without esophagitis; E66.9 Obesity, unspecified; Z68.32 Body mass index [BMI] 32.0-32.9, adult; Z86.16 Personal history of COVID-19; Z86.718 Personal history of other venous thrombosis and embolism; Z79.4 Long term (current) use of insulin; Z79.01 Long term (current) use of anticoagulants
CPT/HCPCS: 10160; 36415; 36569; 71046; 74150; 74177; 77012; 80048; 80076; 80202; 81001; 81025; 81241; 81291; 82948; 83036; 83605; 83735; 85014; 85018; 85025; 85027; 85303; 85306; 85598; 85610; 85613; 85730; 86038; 86140; 86147; 87040; 87070; 87075; 87077; 87147; 87186; 87205; 93005; 93970; 94660; 96361; 96365; 96366; 96374; 96375; 96376; 97161; 99285; A9270; C1729; C1751; C1769; G0378; G0379; J0131; J0690; J0692; J1170; J1815; J2250; J2270; J2405; J3010; J3370; J7030; Q9967

== ENCOUNTER 2021-08-05 19:25 | Outpatient (NON) | payer OTHER, SELFPAY ==
[2021-08-06 11:29] LABS: Basophils Percent Auto 0.9 % (0.2-1.2); Eosinophils Absolute Auto 0.1 K/mm3 (0-0.3); Eosinophils Percent Auto 2.8 % (0-4.4); Hematocrit 36.9 % (37.0-47.0); Immature Granulocyte Absolute 0.01 K/mm3 (0.00-0.031); Immature Granulocyte Percent A 0.2 % (0-0.5); Lymphocytes Absolute Auto 2.06 K/mm3 (0.9-3.2); Lymphocytes Percent Auto 48.2 % (18.3-44.2); Mean Corpuscular HGB Conc 32.5 g/dl (32-36); Mean Corpuscular Hemoglobin 28.5 pg (26-34); Mean Corpuscular Volume 87.6 fl (80-100); Mean Platelet Volume 10.8 fl (7.4-10.4); Monocytes Absolute Auto 0.4 K/mm3 (0.1-0.6); Monocytes Percent Auto 9.1 % (2.6-8.5); Neutrophils Absolute Auto 1.7 K/mm3 (1.3-6.7); Neutrophils Percent Auto 38.8 % (45.5-73.1); Platelet Count Result 229 k/mm3 (150-375); Red Blood Count 4.21 M/mm3 (4.2-5.4); Red Cell Distribution Width 13.2 % (11.5-14.5); White Blood Count 4.3 K/mm3 (4.5-10.0)
[2021-08-06 12:07] LABS: Anion Gap 7 mmol/L (8-16); Blood Urea Nitrogen 9 mg/dL (7-17); Calcium 9.2 mg/dL (8.4-10.2); Carbon Dioxide 26 mmol/L (22-30); Chloride 103 mmol/L (98-107); Estimated Glomerular Filt Rate > 60; Glucose 254 mg/dL (65-110); Potassium 3.5 mmol/L (3.4-5.0); Sodium 136 mmol/L (137-145)
== END 2021-08-05 19:26 | disposition home or self-care (01) ==
LOC: HOME HLTH 19:28
PROVIDERS: PCP Physician Assistant; Visit Provider Nurse Practitioner Adult Health
DX: N15.1 Renal and perinephric abscess (principal)
CPT/HCPCS: 80048; 85025

== ENCOUNTER 2021-08-12 12:57 | Outpatient (RCR) | payer OTHER, SELFPAY ==
[2021-07-29 16:39] LABS: Basophils Percent Auto 0.7 % (0.2-1.2); Eosinophils Absolute Auto 0.2 K/mm3 (0-0.3); Eosinophils Percent Auto 3.3 % (0-4.4); Hematocrit 35.4 % (37.0-47.0); Hemoglobin 11.1 g/dL (12.0-15.0); Immature Granulocyte Absolute 0.02 K/mm3 (0.00-0.031); Immature Granulocyte Percent A 0.4 % (0-0.5); Lymphocytes Absolute Auto 1.93 K/mm3 (0.9-3.2); Lymphocytes Percent Auto 35.4 % (18.3-44.2); Mean Corpuscular HGB Conc 31.4 g/dl (32-36); Mean Corpuscular Hemoglobin 28.3 pg (26-34); Mean Corpuscular Volume 90.3 fl (80-100); Mean Platelet Volume 10.8 fl (7.4-10.4); Monocytes Absolute Auto 0.5 K/mm3 (0.1-0.6); Monocytes Percent Auto 8.6 % (2.6-8.5); Neutrophils Absolute Auto 2.8 K/mm3 (1.3-6.7); Neutrophils Percent Auto 51.6 % (45.5-73.1); Platelet Count Result 234 k/mm3 (150-375); Red Blood Count 3.92 M/mm3 (4.2-5.4); Red Cell Distribution Width 12.7 % (11.5-14.5); White Blood Count 5.5 K/mm3 (4.5-10.0)
[2021-07-29 16:44] LABS: Alanine Aminotransferase 11 U/L (4-35); Albumin Level 3.6 g/dL (3.5-5.1); Alkaline Phosphatase 76 U/L (38-126); Anion Gap 8 mmol/L (8-16); Aspartate Amino Transferase 27 U/L (14-36); Bilirubin,Total 0.3 mg/dL (0.2-1.3); Blood Urea Nitrogen 10 mg/dL (7-17); Calcium 8.8 mg/dL (8.4-10.2); Carbon Dioxide 25 mmol/L (22-30); Chloride 104 mmol/L (98-107); Estimated Glomerular Filt Rate > 60; Glucose 186 mg/dL (65-110); Potassium 3.4 mmol/L (3.4-5.0); Sodium 137 mmol/L (137-145)
[2021-08-12 13:12] LABS: Alanine Aminotransferase 15 U/L (4-35); Albumin Level 4.2 g/dL (3.5-5.1); Alkaline Phosphatase 81 U/L (38-126); Anion Gap 13 mmol/L (8-16); Aspartate Amino Transferase 30 U/L (14-36); Bilirubin,Total 0.6 mg/dL (0.2-1.3); Blood Urea Nitrogen 10 mg/dL (7-17); Calcium 9.1 mg/dL (8.4-10.2); Carbon Dioxide 22 mmol/L (22-30); Chloride 100 mmol/L (98-107); Estimated Glomerular Filt Rate > 60; Glucose 500 mg/dL (65-110); Potassium 3.7 mmol/L (3.4-5.0); Sodium 135 mmol/L (137-145)
[2021-08-12 14:42] LABS: Basophils Percent Auto 0.6 % (0.2-1.2); Eosinophils Absolute Auto 0.1 K/mm3 (0-0.3); Eosinophils Percent Auto 1.4 % (0-4.4); Hematocrit 40.9 % (37.0-47.0); Hemoglobin 13.2 g/dL (12.0-15.0); Immature Granulocyte Absolute 0.02 K/mm3 (0.00-0.031); Immature Granulocyte Percent A 0.4 % (0-0.5); Lymphocytes Percent Auto 24.2 % (18.3-44.2); Mean Corpuscular HGB Conc 32.3 g/dl (32-36); Mean Corpuscular Volume 89.9 fl (80-100); Mean Platelet Volume 11.6 fl (7.4-10.4); Monocytes Absolute Auto 0.4 K/mm3 (0.1-0.6); Monocytes Percent Auto 7.1 % (2.6-8.5); Neutrophils Absolute Auto 3.3 K/mm3 (1.3-6.7); Neutrophils Percent Auto 66.3 % (45.5-73.1); Platelet Count Result 195 k/mm3 (150-375); Red Blood Count 4.55 M/mm3 (4.2-5.4); Red Cell Distribution Width 13.6 % (11.5-14.5)
== END 2021-10-27 23:59 | disposition home or self-care (01) ==
LOC: HOME HLTH 12:57
PROVIDERS: PCP Physician Assistant; Visit Provider Physician Assistant
DX: N15.1 Renal and perinephric abscess (principal)
CPT/HCPCS: 80053; 85025

== ENCOUNTER 2021-08-14 21:20 | Emergency (ER) | payer OTHER, SELFPAY ==
--- NOTE | ~2021-08-14 | XR_ITS ---
EXAMINATION: XR chest PICC line INDICATION: Assess existing PICC position TECHNIQUE: Portable AP chest at 0034 hours COMPARISON: 07/19/2021 FINDINGS: A left upper extremity PICC ends with its tip in the proximal superior vena cava. The lung volumes are low. The lungs are free of acute opacities. The cardiomediastinal silhouette is normal. T here is no pleural effusion or pneumothorax. IMPRESSION: 1. Left upper extremity PICC ending in the proximal superior vena cava. 2. No acute cardiopulmonary abnormality. Reviewed, dictated and finalized at location A.
--- NOTE | ~2021-08-14 | CT_ITS ---
EXAMINATION: CT chest abdomen pelvis w con EXAM DATE: 08/15/2021 03:16 INDICATION: hx of PE, hx of renal abscess, right flank pain. Low back pain, midsternal chest pain. TECHNIQUE: Spiral CT of the chest, abdomen and pelvis was performed following intravenous injection o f 100 mL Omnipaque 350. Axial, coronal and sagittal images chest, abdomen and pelvis were reviewed. Coronal maximum intensity pixel images of chest reviewed. The dose-length product (DLP) for this ex amination was 671.91 mGy-cm. The exposure was tailored according to patient size (auto mA exposure c ontrol), and iterative reconstruction (ASIR) was used as additional dose reduction technique. Compari son is made to prior examination from 07/23/2021. FINDINGS: CHEST: No central pulmonary emboli. No focal airspace disease. There are no pleural or pericardial e ffusions. Tracheobronchial tree is patent. There is no mediastinal, hilar or axillary lymphadenop athy. There is no pneumothorax. Heart normal in size. There is mild coronary arterial calcifica tion, arterial sclerosis. There is a left-sided PICC line. ABDOMEN PELVIS: Small region transient hepatic attenuation difference. The liver, spleen, adrenal gl ands and pancreas are otherwise unremarkable. Gallbladder is unremarkable. No biliary obstruction. Portal and splenic veins are patent. Kidneys enhance symmetrically. There is no hydronephrosis. Sm all amount of fat stranding along the posterior cortex of the right kidney at location of previously seen pigtail catheter. No evidence of renal abscess or pyelonephritis. The uterus is anteverted and morphologically normal. The bladder is unremarkable. Portacaval lymph node measuring 1.6 x 1.1 cm likely reactive. The appendix is normal. The stomach and small bowel are unremarkable. Colonic fluid proximally, mor e solid-appearing stool distally. No free intraperitoneal gas. The bones are unremarkable. IMPRESSION: Normal kidneys with small amount of fat stranding posterior to right kidney, probably sca rring. Reviewed, dictated and finalized at location B. IMPRESSION: Normal kidneys with small amount of fat stranding posterior to righ t kidney, probably scarring.
[2021-08-14 21:21] VITALS: BP 170/89; PULSE 84; RESP 18; TEMP 36.8; O2SAT 100
--- NOTE | 2021-08-14 23:35 | ED.BACK ---
HPI - Back Pain/Injury General Chief Complaint: Back Pain/Injury Stated Complaint: back pain - last month mass on kidney Time Seen by Provider: 08/14/21 23:33 Source: patient Mode of arrival: ambulatory Limitations: no limitations History of Present Illness HPI Narrative: Patient is a 51-year-old female with history of type 2 diabetes, hypertension, renal abscess, with recent hospitalization in June, who presents for evaluation of multiple symptoms including right-sided abdominal pain and right flank pain. Patient states she has been receiving antibiotics through her PICC line as scheduled without any missed doses. She reports she developed right-sided flank pain which is sharp, cramping in nature over the past 3 days. She denies fever or chills. She reports nausea and vomiting. She reports right-sided lower abdominal pain. She denies diarrhea or constipation. Patient follows with Dr. Marie Patient also reports onset of chest pain over the center of her chest this morning. It has been present for greater than 4 hours. Described as a aching pressure without radiation to the jaw, neck, shoulder or back. Patient denies history of heart attack. She states she has had a stress test in the past which was normal. Related Data Home Medications Medication Instructions Recorded Confirmed Eliquis 5 mg PO DAILY 06/16/20 07/19/21 duloxetine 60 mg PO HS 06/16/20 07/19/21 ezetimibe 10 mg PO DAILY 06/16/20 07/19/21 losartan 50 mg PO DAILY 06/16/20 07/19/21 metformin 1,000 mg PO BID 06/16/20 07/19/21 Basaglar KwikPen U-100 Insulin 25 unit SUBCUT 12/07/20 07/19/21 Januvia 100 mg PO DAILY 12/07/20 07/19/21 pregabalin 150 mg PO BID 12/07/20 07/19/21 Allergies Allergy/AdvReac Type Severity Reaction Status Date / Time No Known Allergies Allergy Unknown Verified 08/14/21 23:53 Review of Systems Review of Systems: CONSTITUTIONAL: Denies fever, chills, or sweats. EYES: Denies visual changes, redness, or discharge. ENT: Denies rhinorrhea, congestion, sore throat, or otalgia. CARDIOVASCULAR: Reports mild chest pain without palpitations or edema RESPIRATORY: Denies cough, reports mild shortness of breath GASTROINTESTINAL: Reports right-sided abdominal pain, right flank pain, nausea and vomiting GENITOURINARY: Denies dysuria or hematuria. SKIN: Denies rash or itching. MUSCULOSKELETAL: Denies back pain, joint pain, reports myalgias NEUROLOGIC: Denies headache, numbness, or weakness. [facility] Past Medical History Medical History Adenomatous colon polyp Asthma COVID-19 Diabetes mellitus DVT (deep venous thrombosis) Gastroparesis H. pylori infection HLD (hyperlipidemia) HTN (hypertension) Neuropathy Surgical History Surgical History H/O section H/O colonoscopy H/O esophagogastroduodenoscopy History of tonsillectomy Family History Family History Mother Diabetes mellitus Heart disease Acute myocardial infarction Sibling Diabetes mellitus Social History Social History Smoking status: Never smoker Second hand tobacco smoke exposure: Yes Alcohol intake: never Substance use: never Substance use type: does not use Gender identity (if verbalized by the patient): Female Sexual Orientation (if Verbalized by the Patient): Straight or Heterosexual Spiritual care concerns: No Exam Narrative: GENERAL: Awake, alert, conversant HEAD: Normocephalic, atraumatic. EYES: PERRLA and EOMI. ENT: Nares clear, no rhinorrhea or epistaxis. Mucous membranes moist. NECK: Supple. CHEST: No respiratory distress, breathing even and non labored HEART: Regular rate, sinus rhythm ABDOMEN:Non distended, RLQ abdominal pain, right flank pain, no erythema EXTREMITIES: Normal range of motion. No edema.PICC line
[2021-08-14 23:53] VITALS: BP 146/74; PULSE 69; RESP 16; O2SAT 100
--- NOTE | 2021-08-15 00:04 | PC.NURSE ---
Pt also c/o midsternal CP and SOB that started this AM and lasted approx 1 hr.
--- NOTE | 2021-08-15 00:15 | PC.NURSE ---
This RN attempted IV access x2. ED charge aide notified.
--- NOTE | 2021-08-15 00:22 | ECG_ITS ---
Measurements Intervals [place] Rate: 60 P: 14 [place]: 152 QRS: -12 QRSD: 105 T: 6 QT: 424 QTc: 426 Interpretive Statements SINUS RHYTHM POOR R WAVE PROGRESSION, ANTERIOR LEADS INFERIOR INFARCT, AGE INDETERMINATE ABNORMAL ECG Electronically Signed On 08-15-2021 6:26:40 CDT by Satya Mccrary D.O.
[2021-08-15 00:52] LABS: Basophils Percent Auto 0.6 % (0.2-1.2); Eosinophils Absolute Auto 0.2 K/mm3 (0-0.3); Eosinophils Percent Auto 3.4 % (0-4.4); Hematocrit 43.2 % (37.0-47.0); Hemoglobin 13.6 g/dL (12.0-15.0); Immature Granulocyte Absolute 0.01 K/mm3 (0.00-0.031); Immature Granulocyte Percent A 0.2 % (0-0.5); Lymphocytes Absolute Auto 2.44 K/mm3 (0.9-3.2); Lymphocytes Percent Auto 48.5 % (18.3-44.2); Mean Corpuscular HGB Conc 31.5 g/dl (32-36); Mean Corpuscular Hemoglobin 28.8 pg (26-34); Mean Corpuscular Volume 91.5 fl (80-100); Mean Platelet Volume 11.5 fl (7.4-10.4); Monocytes Absolute Auto 0.5 K/mm3 (0.1-0.6); Monocytes Percent Auto 9.9 % (2.6-8.5); Neutrophils Absolute Auto 1.9 K/mm3 (1.3-6.7); Neutrophils Percent Auto 37.4 % (45.5-73.1); Platelet Count Result 189 k/mm3 (150-375); Red Blood Count 4.72 M/mm3 (4.2-5.4); Red Cell Distribution Width 13.5 % (11.5-14.5)
[2021-08-15 01:05] LABS: INR 1.1; Prothrombin Time 14.2 Seconds (11.1-14.7)
[2021-08-15] MEDS: MORPHINE SULFATE (*CRX) 4 MG/ML INJ IV PUSH (01:08)
[2021-08-15] MEDS: ONDANSETRON INJ 4 MG/2 ML VIAL IV PUSH (01:08)
[2021-08-15] MEDS: SODIUM CHLORIDE 0.9% IV 1,000 ML 999 ML IV CONT ×2 (01:10→03:39)
[2021-08-15 01:17] LABS: Troponin I < 0.012 ng/mL (0.000-0.034)
[2021-08-15 01:30] LABS: Add Urine Microscopic? YES; Appearance Urine Clear (Clear); Bilirubin Urine Negative (Negative); Blood Urine Negative (Negative); Color Urine Straw (Yellow); Glucose Urine UA 3+ mg/dL (Negative); Ketones Urine Negative (Negative); Leukocyte Esterase Ur Negative LEU/UL (Negative); Nitrate Urine Negative (Negative); Protein Urine Negative (Negative); RBC Urine 0-2 /hpf (0-2); Squamous Epithelial Cell Urine Occasional /hpf (Few); Urobilinogen Urine Negative mg/dL (<2.0); WBC Urine 0-3 /hpf
[2021-08-15 01:37] LABS: Specific Grav Ur 1.038 (1.001-1.035)
[2021-08-15 01:38] VITALS: TEMP 36.8
[2021-08-15 01:49] VITALS: BP 128/80; PULSE 95; RESP 16; O2SAT 100
[2021-08-15 02:34] LABS: Alanine Aminotransferase 11 U/L (4-35); Albumin Level 3.6 g/dL (3.5-5.1); Alkaline Phosphatase 68 U/L (38-126); Anion Gap 8 mmol/L (8-16); Aspartate Amino Transferase 21 U/L (14-36); Bilirubin,Total 0.3 mg/dL (0.2-1.3); Blood Urea Nitrogen 10 mg/dL (7-17); Calcium 8.9 mg/dL (8.4-10.2); Carbon Dioxide 24 mmol/L (22-30); Chloride 102 mmol/L (98-107); Estimated CRCL calculation 103 ml/min; Estimated Glomerular Filt Rate > 60; Glucose 247 mg/dL (65-110); Potassium 3.3 mmol/L (3.4-5.0); Sodium 134 mmol/L (137-145)
--- NOTE | 2021-08-15 02:45 | PC.NURSE ---
Pt to CT via stretcher at this time. Pt alert and upright on stretcher during transport out of ED.
[2021-08-15] MEDS: HYDROmorphone HCL INJ (*CRX) 1 MG/ML SYR 0.5 MG IV PUSH (03:38)
[2021-08-15 03:58] VITALS: BP 116/63; PULSE 72; RESP 14; O2SAT 97
--- NOTE | 2021-08-15 04:20 | PC.NURSE ---
Pt sleeping on stretcher, lights dimmed.
[2021-08-15] MEDS: KETOROLAC 15 MG/ML VIAL (*BKC) IV PUSH (05:31)
[2021-08-15 05:36] VITALS: BP 114/69; PULSE 72; RESP 14; O2SAT 97
== END 2021-08-15 05:39 | disposition home or self-care (01) ==
PROVIDERS: Emergency Provider Emergency Medicine; PCP Physician Assistant
DX: M54.9 Dorsalgia, unspecified (principal); E78.5 Hyperlipidemia, unspecified; I10 Essential (primary) hypertension; J45.909 Unspecified asthma, uncomplicated; E11.43 Type 2 diabetes mellitus with diabetic autonomic (poly)neuropathy; E11.40 Type 2 diabetes mellitus with diabetic neuropathy, unspecified; K31.84 Gastroparesis; Z86.010 Personal history of colon polyps; Z86.16 Personal history of COVID-19; Z86.718 Personal history of other venous thrombosis and embolism; Z79.4 Long term (current) use of insulin; Z79.01 Long term (current) use of anticoagulants; R94.31 Abnormal electrocardiogram [ECG] [EKG]
CPT/HCPCS: 36415; 71260; 74177; 80053; 81001; 84484; 85025; 85610; 85730; 93005; 96361; 96365; 96366; 96375; 99284; J0131; J1170; J1885; J2270; J2405; J7030; Q9967

== ENCOUNTER 2022-04-04 15:32 | Emergency (ER) | payer OTHER, SELFPAY ==
--- NOTE | ~2022-04-04 | XR_ITS ---
EXAMINATION: XR sacrum coccyx min 2V DATE: 04/04/2022 16:45 INDICATION: Sacrococcygeal pain. TECHNIQUE: 3 views of sacrum and coccyx were obtained. COMPARISON: None. FINDINGS: Bone alignment is normal. No fracture. There is mild lumbar spondylosis. There is mild oste oarthritis of the sacroiliac joints. IMPRESSION: 1. No fracture. Reviewed, dictated and finalized at location A. IMPRESSION: 1. No fracture.
--- NOTE | ~2022-04-04 | XR_ITS ---
EXAMINATION: [id number] DATE: 04/04/2022 16:44 INDICATION: Right rib pain. Fall. TECHNIQUE: A frontal view of the chest and 2 views on 3 radiographs of the right ribs were obtained. COMPARISON: Chest single view 08/15/2021 FINDINGS: The chest demonstrates clear lungs without pneumonia, pleural effusion, or pneumothorax. Th e heart size is normal. IMPRESSION: 1. No rib fracture. Reviewed, dictated and finalized at location A. IMPRESSION: 1. No rib fracture.
--- NOTE | ~2022-04-04 | XR_ITS ---
EXAMINATION: XR pelvis 1-2V DATE: 04/04/2022 16:44 INDICATION: Left pelvic pain. Fall. TECHNIQUE: Anteroposterior and frog-leg views of the pelvis were obtained. COMPARISON: None. FINDINGS: Bone alignment is normal. No fracture. There is mild left hip osteoarthritis. There is mild lumbar spondylosis. IMPRESSION: 1. Mild left hip osteoarthritis. Reviewed, dictated and finalized at location A.
[2022-04-04 15:34] VITALS: BP 152/77; PULSE 77; RESP 18; TEMP 36.3; O2SAT 99
--- NOTE | 2022-04-04 15:40 | ECG_ITS ---
Measurements Intervals [place] Rate: 69 P: -2 [place]: 163 QRS: -30 QRSD: 93 T: 5 QT: 386 QTc: 415 Interpretive Statements SINUS RHYTHM INFERIOR INFARCT, AGE INDETERMINATE ANTEROSEPTAL INFARCT, AGE INDETERMINATE ABNORMAL ECG Electronically Signed On 04-04-2022 15:54:38 CDT by Satya Mccrary D.O.
--- NOTE | 2022-04-04 16:25 | ED.FALL ---
HPI - Fall General Chief Complaint: Fall Stated Complaint: fall with pain to chest - heard a pop Time Seen by Provider: 04/04/22 16:14 Source: RN notes reviewed History of Present Illness HPI Narrative: Patient presents emergency department from home for fall. Patient states that she fell 2 days ago. States that she was stepping off of a porch and the porch was slightly higher than she thought and missed a step and fell backwards she states she landed on her buttocks and then struck her back she notes pain in her right upper back that radiates around to her right upper chest as well as pain in the buttocks since the fall she has been able to get up and ambulate. States she has been taking ibuprofen for the pain with minimal relief she denies striking her head or loss of consciousness she denies any neck pain, shortness of breath abdominal pain nausea vomiting numbness or tingling in extremities or any other Related Data Home Medications Medication Instructions Recorded Confirmed Eliquis 5 mg PO DAILY 06/16/20 07/19/21 duloxetine 60 mg PO HS 06/16/20 07/19/21 ezetimibe 10 mg PO DAILY 06/16/20 07/19/21 losartan 50 mg PO DAILY 06/16/20 07/19/21 metformin 1,000 mg PO BID 06/16/20 07/19/21 Basaglar KwikPen U-100 Insulin 25 unit SUBCUT 12/07/20 07/19/21 Januvia 100 mg PO DAILY 12/07/20 07/19/21 pregabalin 150 mg PO BID 12/07/20 07/19/21 Allergies Allergy/AdvReac Type Severity Reaction Status Date / Time No Known Allergies Allergy Unknown Verified 04/04/22 16:07 Review of Systems Review of Systems: Gen.: Denies fevers or chills Eyes: Denies eye pain or visual change ENT: Denies congestion Respiratory: Denies shortness of breath or cough CV: Reports right anterior chest pain GI: Denies abdominal pain nausea, emesis or diarrhea denies burning, urgency, frequency or hematuria Musculoskeletal: See HPI Neuro: Denies numbness, tingling, weakness or focal weakness Skin: Denies rash Except as documented, all other systems reviewed and negative PMFSH Past Medical History Medical History Adenomatous colon polyp Asthma COVID-19 Diabetes mellitus DVT (deep venous thrombosis) Gastroparesis H. pylori infection HLD (hyperlipidemia) HTN (hypertension) Neuropathy Surgical History Surgical History H/O section H/O colonoscopy H/O esophagogastroduodenoscopy History of tonsillectomy Family History Family History Mother Diabetes mellitus Heart disease Acute myocardial infarction Sibling Diabetes mellitus Social History Social History Smoking status: Never smoker Second hand tobacco smoke exposure: Yes Alcohol intake: never Substance use: never Substance use type: does not use Gender identity (if verbalized by the patient): Female Sexual Orientation (if Verbalized by the Patient): Straight or Heterosexual Spiritual care concerns: No Exam Narrative: APPEARANCE: No acute distress, nontoxic, resting in bed EYES: EOMI HEENT: Normocephalic, atraumatic, OMM RESPIRATORY: No respiratory distress Clear to auscultation bilaterally with no rhonchi wheezing or rales. CARDIOVASCULAR: Regular rate and rhythm without murmurs rubs or gallops. Chest wall, tender palpation right anterior chest wall in region of ribs 6 through 8 no swelling or ecchymosis ABDOMINAL: Soft, nontender, nondistended, no rebound or guarding no tenderness in right upper quadrant MUSCULOSKELETAl: Moves all extremities. No clubbing, cyanosis or edema. Back: No midline thoracic lumbar tenderness palpation temporal patient right upper back region of ribs 6 through 8 pain increased with deep inspiration and movement of the torso, no midline lumbar tenderness palpation tender to palpation over coccyx region NEURO: Awake and
[2022-04-04] MEDS: HYDROcodone/acetaminophen (*CRX) 5-325 MG TABLET 1 TAB PO (16:28)
[2022-04-04 18:02] VITALS: PULSE 78; RESP 16; O2SAT 98
== END 2022-04-04 18:03 | disposition home or self-care (01) ==
PROVIDERS: Emergency Provider Emergency Medicine; PCP Physician Assistant
DX: S20.211A Contusion of right front wall of thorax, initial encounter (principal); S39.92XA Unspecified injury of lower back, initial encounter; E11.40 Type 2 diabetes mellitus with diabetic neuropathy, unspecified; E11.43 Type 2 diabetes mellitus with diabetic autonomic (poly)neuropathy; K31.84 Gastroparesis; E78.5 Hyperlipidemia, unspecified; I10 Essential (primary) hypertension; Z86.16 Personal history of COVID-19; Z86.010 Personal history of colon polyps; Z86.718 Personal history of other venous thrombosis and embolism; Z79.01 Long term (current) use of anticoagulants; Z79.84 Long term (current) use of oral hypoglycemic drugs; Z79.4 Long term (current) use of insulin; M16.12 Unilateral primary osteoarthritis, left hip; R94.31 Abnormal electrocardiogram [ECG] [EKG]; W10.9XXA Fall (on) (from) unspecified stairs and steps, initial encounter
CPT/HCPCS: 71101; 72170; 72220; 93005; 99284; A9270

== ENCOUNTER 2022-07-15 12:11 | Emergency (ER) | payer OTHER, SELFPAY ==
--- NOTE | ~2022-07-15 | CT_ITS ---
EXAMINATION: CT abd pelvis lumbar wo con DATE: 07/15/2022 14:13 INDICATION: Right flank pain radiating to groin for 2 days TECHNIQUE: Computed tomography (CT) of the abdomen and pelvis and lumbar spine was performed without intravenous contrast. Automated exposure control and iterative reconstruction technique were employed . Exam dose: 432.96 mGy-cm total exam DLP. COMPARISON: 08/15/2021 CT chest abdomen pelvis FINDINGS: The lung bases are clear. Normal heart size. No pericardial or pleural effusion. The liver, gallbladder, bile ducts, spleen, and pancreatic duct are unremarkable. No pancreatic mass lesion is noted. There is a solitary pancreatic head calcification which may indicate mild chronic pa ncreatitis. Normal morphology of the adrenal glands. No renal mass lesion or urinary tract calculus or hydroureteronephrosis. The uterus, adnexal areas are unremarkable. Urinary bladder is very distended bladder wall appears mi ldly prominent; recommend clinical correlation for possible cystitis. Normal caliber of the abdominal aorta. No intraperitoneal or retroperitoneal or pelvic mass lesion or adenopathy or ascites is detected. There is degenerative spurring at the lower thoracic spine and to a mild extent the lumbar spine. No suspicious osteolytic or osteoblastic lesions. IMPRESSION: No urinary tract calculus or hydroureteronephrosis Bladder wall thickening; recommend clinical correlation for possible cystitis Possible mild chronic pancreatitis Degenerative spurring of lower thoracic and to a lesser extent lumbar spine Reviewed, dictated and finalized at [facility]. Reviewed, dictated and finalized at [facility].
--- NOTE | ~2022-07-15 | XR_ITS ---
XR chest 2V DATE: 07/15/2022 14:16 INDICATION: Chest pain radiating to entire back TECHNIQUE: PA and lateral views COMPARISON: 08/15/2021 portable AP chest FINDINGS: Normal heart size. No hilar or mediastinal enlargement. No pulmonary infiltrate or consolid ation, pleural effusion or pulmonary vascular congestion or pneumothorax. Included skeletal structures are unremarkable. Removal of left upper extremity PIC catheter since 08/15/2021. IMPRESSION: No active cardiopulmonary disease Reviewed, dictated and finalized at [facility].
[2022-07-15 12:17] VITALS: BP 148/86; PULSE 78; RESP 20; TEMP 36.3; O2SAT 100
--- NOTE | 2022-07-15 13:04 | ECG_ITS ---
Measurements Intervals [place] Rate: 57 P: 21 [place]: 155 QRS: -24 QRSD: 93 T: 24 QT: 443 QTc: 433 Interpretive Statements SINUS BRADYCARDIA ANTEROSEPTAL MYOCARDIAL INFARCTION , OF INDETERMINATE AGE [40+ ms Q WAVE IN V1-V4] ABNORMAL ECG COMPARED TO ECG 04/04/2022 15:43:47 SINUS BRADYCARDIA NOW PRESENT Electronically Signed On 07-15-2022 14:17:47 CDT by Yan Coleman M.D.
--- NOTE | 2022-07-15 13:04 | ED.BACK ---
HPI - Back Pain/Injury General Chief Complaint: Back Pain/Injury Stated Complaint: back pain Time Seen by Provider: 07/15/22 12:46 History of Present Illness HPI Narrative: The patient is a 52-year-old female with a history of type 2 diabetes, hypertension, renal abscess, with hospitalization in 06/2021, presenting to the emergency department for evaluation of right lower back pain. Patient also is reporting upper right-sided chest pain, and right lower abdominal pain. Patient states that symptoms have been ongoing over the past 2 days and worsening. Patient reports aching pain in her right lower back without recent fall or injury. Patient denies fever, chills, nausea or vomiting. Denies cough or shortness of breath. Patient denies dysuria or hematuria. Patient states that pain is similar to when she had a renal abscess. Patient reports no lower extremity weakness or numbness. She has been ambulatory without difficulty. Patient has not been taking any new medications for her symptom management but states she has been compliant with her old medications. Patient denies any difficulty with bowel or bladder function. She denies saddle anesthesia. Related Data Home Medications Medication Instructions Recorded Confirmed apixaban 5 mg tablet (Eliquis) 5 mg PO DAILY 06/16/20 07/19/21 duloxetine 60 mg capsule,delayed 60 mg PO HS 06/16/20 07/19/21 release ezetimibe 10 mg tablet 10 mg PO DAILY 06/16/20 07/19/21 losartan 50 mg tablet 50 mg PO DAILY 06/16/20 07/19/21 metformin 1,000 mg tablet 1,000 mg PO BID 06/16/20 07/19/21 insulin glargine 100 unit/mL (3 25 unit subcut HS 12/07/20 07/19/21 mL) subcutaneous pen (Basaglar KwikPen U-100 Insulin) pregabalin 150 mg capsule 150 mg PO BID 12/07/20 07/19/21 sitagliptin 100 mg tablet (Januvia) 100 mg PO DAILY 12/07/20 07/19/21 Allergies Allergy/AdvReac Type Severity Reaction Status Date / Time No Known Allergies Allergy Unknown Verified 07/15/22 12:31 Review of Systems Review of Systems: CONSTITUTIONAL: Denies fever, chills, or sweats. EYES: Denies visual changes, redness, or discharge. ENT: Denies rhinorrhea, congestion, sore throat, or otalgia. CARDIOVASCULAR: Reports chest pain over the right side of the chest without palpitations or edema RESPIRATORY: Denies cough or dyspnea. GASTROINTESTINAL: Reports right lower abdominal pain without nausea or vomiting GENITOURINARY: Denies dysuria or hematuria. SKIN: Denies rash or itching. MUSCULOSKELETAL: Reports right flank pain without joint pain or myalgias NEUROLOGIC: Denies headache, numbness, or weakness. [facility] Past Medical History Medical History (Updated 07/15/22 @ 15:40 by Chelsea Arrieta MD) Adenomatous colon polyp Asthma Chronic anticoagulation COVID-19 Diabetes mellitus DVT (deep venous thrombosis) Epigastric pain Gastroparesis H. pylori infection HLD (hyperlipidemia) HTN (hypertension) Neuropathy Perirectal abscess Perirectal ulcer Pneumonia due to 2019-nCoV Renal abscess Renal cyst Surgical History Surgical History H/O section H/O colonoscopy H/O esophagogastroduodenoscopy History of tonsillectomy Family History Family History Mother Diabetes mellitus Heart disease Acute myocardial infarction Sibling Diabetes mellitus Social History Social History Smoking status: Never smoker Second hand tobacco smoke exposure: Yes Alcohol intake: never Substance use: never Substance use type: does not use Gender identity (if verbalized by the patient): Female Sexual Orientation (if Verbalized by the Patient): Straight or Heterosexual Spiritual care concerns: No Exam Narrative: GENERAL: Awake, alert, conversant HEAD: Normocephalic, atraumatic. EYES: PERRLA and EOMI. ENT: Nares clear, no rhinorrhea or epistaxis.
[2022-07-15 13:28] LABS: Basophils Percent Auto 0.8 % (0.2-1.2); Eosinophils Absolute Auto 0.1 K/mm3 (0-0.3); Eosinophils Percent Auto 2.3 % (0-4.4); Hematocrit 47.1 % (37.0-47.0); Hemoglobin 15.6 g/dL (12.0-15.0); Immature Granulocyte Absolute 0.01 K/mm3 (0.00-0.031); Immature Granulocyte Percent A 0.2 % (0-0.5); Lymphocytes Absolute Auto 1.73 K/mm3 (0.9-3.2); Lymphocytes Percent Auto 33.3 % (18.3-44.2); Mean Corpuscular HGB Conc 33.1 g/dl (32-36); Mean Corpuscular Hemoglobin 30.1 pg (26-34); Mean Corpuscular Volume 90.8 fl (80-100); Mean Platelet Volume 10.8 fl (7.4-10.4); Monocytes Absolute Auto 0.4 K/mm3 (0.1-0.6); Monocytes Percent Auto 7.1 % (2.6-8.5); Neutrophils Absolute Auto 2.9 K/mm3 (1.3-6.7); Neutrophils Percent Auto 56.3 % (45.5-73.1); Platelet Count Result 170 k/mm3 (150-375); Red Blood Count 5.19 M/mm3 (4.2-5.4); Red Cell Distribution Width 12.5 % (11.5-14.5); White Blood Count 5.2 K/mm3 (4.5-10.0)
[2022-07-15 13:37] LABS: Lipase 91 U/L (23-300)
[2022-07-15 13:39] LABS: Alanine Aminotransferase 23 U/L (6-35); Albumin Level 4.4 g/dL (3.5-5.1); Alkaline Phosphatase 92 U/L (38-126); Anion Gap 10 mmol/L (8-16); Aspartate Amino Transferase 23 U/L (14-36); Bilirubin,Total 0.5 mg/dL (0.2-1.3); Blood Urea Nitrogen 21 mg/dL (7-17); Calcium 9.3 mg/dL (8.4-10.2); Carbon Dioxide 24 mmol/L (22-30); Chloride 99 mmol/L (98-107); Estimated CRCL calculation 74 ml/min; Estimated Glomerular Filt Rate > 60; Glucose 348 mg/dL (65-110); Sodium 133 mmol/L (137-145)
[2022-07-15 13:42] LABS: Appearance Urine Clear (Clear); Bilirubin Urine Negative (Negative); Blood Urine Negative (Negative); Color Urine Yellow (Yellow); Glucose Urine UA 3+ mg/dL (Negative); Ketones Urine Negative (Negative); Leukocyte Esterase Ur Negative LEU/UL (Negative); Nitrate Urine Negative (Negative); Protein Urine Negative (Negative); Specific Grav Ur 1.015 (1.001-1.035); Urobilinogen Urine 0.2 mg/dL (<2.0); pH Urine 5.5 (5.0-9.0)
[2022-07-15 13:45] LABS: CRP < 0.5 mg/dL (<1.0)
[2022-07-15 13:50] LABS: Troponin I < 0.012 ng/mL (0.000-0.034)
[2022-07-15 13:51] LABS: INR 1.5; Partial Thromboplastin Time 31.8 SECONDS (22.3-36.8); Prothrombin Time 17.3 Seconds (11.1-14.7)
[2022-07-15 13:57] LABS: Bacteria Urine Trace /hpf; Mucus Urine Rare /lpf; RBC Urine 0-2 /hpf (0-2); Squamous Epithelial Cell Urine Few /hpf (Few); WBC Urine 0-3 /hpf
[2022-07-15 14:01] LABS: Add Urine Microscopic? YES
[2022-07-15 14:06] LABS: Erythrocyte Sedimentation Rate 18 mm/hr (0-20)
[2022-07-15] MEDS: ONDANSETRON INJ 4 MG/2 ML VIAL IV PUSH (14:22)
[2022-07-15] MEDS: MORPHINE SULFATE (*CRX) 4 MG/ML INJ IV PUSH (14:22)
[2022-07-15] MEDS: SODIUM CHLORIDE 0.9% IV 1,000 ML 999 ML IV CONT (14:23)
[2022-07-15] MEDS: ACETAMINOPHEN 500 MG TABLET 1000 MG PO (14:23)
[2022-07-15 15:51] VITALS: BP 159/83; PULSE 61; RESP 17; TEMP 36.9; O2SAT 100
[2022-07-15 16:05] LABS: Glucose Point of Care 238 mg/dl (65-105)
--- NOTE | 2022-07-15 16:05 | PC.NURSE ---
patient's blood sugar at 1600 was 238.
== END 2022-07-15 16:10 | disposition home or self-care (01) ==
PROVIDERS: Emergency Provider Emergency Medicine; PCP Physician Assistant
DX: S39.012A Strain of muscle, fascia and tendon of lower back, initial encounter (principal); I10 Essential (primary) hypertension; E11.43 Type 2 diabetes mellitus with diabetic autonomic (poly)neuropathy; K31.84 Gastroparesis; E11.40 Type 2 diabetes mellitus with diabetic neuropathy, unspecified; J45.909 Unspecified asthma, uncomplicated; E78.5 Hyperlipidemia, unspecified; Z86.16 Personal history of COVID-19; Z87.01 Personal history of pneumonia (recurrent); Z79.01 Long term (current) use of anticoagulants; Z79.4 Long term (current) use of insulin; Z79.84 Long term (current) use of oral hypoglycemic drugs; R93.41 Abnormal radiologic findings on diagnostic imaging of renal pelvis, ureter, or bladder; R93.89 Abnormal findings on diagnostic imaging of other specified body structures; X58.XXXA Exposure to other specified factors, initial encounter
CPT/HCPCS: 36415; 71046; 72131; 74176; 80053; 81001; 82948; 83690; 84484; 85025; 85610; 85652; 85730; 86140; 93005; 96361; 96374; 96375; 99284; A9270; J2270; J2405; J7030

== ENCOUNTER 2022-08-25 08:25 | Emergency (ER) | payer OTHER, SELFPAY ==
--- NOTE | ~2022-08-25 | XR_ITS ---
EXAMINATION: XR foot RT min 3V DATE: 08/25/2022 11:22 INDICATION: Right foot pain TECHNIQUE: Dorsoplantar, lateral, and 2 oblique views of the right foot were obtained. COMPARISON: 05/13/2005 FINDINGS: Bone alignment is normal. There is no fracture. Mild osteoarthritis is noted in multiple in terphalangeal joints. A plantar calcaneal enthesophyte is noted. IMPRESSION: 1. No acute osseous abnormality. Reviewed, dictated and finalized at [facility].
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
[2022-08-25 08:33] VITALS: BP 148/117; PULSE 91; RESP 18; TEMP 36.5; O2SAT 100
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
[2022-08-25 09:44] LABS: Basophils Absolute Auto 0.1 K/mm3 (0.0-0.1); Basophils Percent Auto 0.8 % (0.2-1.2); Eosinophils Absolute Auto 0.1 K/mm3 (0-0.3); Eosinophils Percent Auto 1.9 % (0-4.4); Hematocrit 43.6 % (37.0-47.0); Hemoglobin 14.3 g/dL (12.0-15.0); Immature Granulocyte Absolute 0.02 K/mm3 (0.00-0.031); Immature Granulocyte Percent A 0.3 % (0-0.5); Lymphocytes Absolute Auto 1.97 K/mm3 (0.9-3.2); Lymphocytes Percent Auto 26.5 % (18.3-44.2); Mean Corpuscular HGB Conc 32.8 g/dl (32-36); Mean Corpuscular Hemoglobin 30.1 pg (26-34); Mean Corpuscular Volume 91.8 fl (80-100); Mean Platelet Volume 10.8 fl (7.4-10.4); Monocytes Absolute Auto 0.5 K/mm3 (0.1-0.6); Monocytes Percent Auto 7.3 % (2.6-8.5); Neutrophils Absolute Auto 4.7 K/mm3 (1.3-6.7); Neutrophils Percent Auto 63.2 % (45.5-73.1); Platelet Count Result 182 k/mm3 (150-375); Red Blood Count 4.75 M/mm3 (4.2-5.4); Red Cell Distribution Width 12.8 % (11.5-14.5); White Blood Count 7.4 K/mm3 (4.5-10.0)
[2022-08-25 09:45] LABS: Appearance Urine Cloudy (Clear); Bilirubin Urine Negative (Negative); Color Urine Yellow (Yellow); Glucose Urine UA 2+ mg/dL (Negative); Ketones Urine Negative (Negative); Leukocyte Esterase Ur 1+ LEU/UL (Negative); Nitrate Urine Negative (Negative); Protein Urine Negative (Negative); Specific Grav Ur 1.015 (1.001-1.035); pH Urine 5.5 (5.0-9.0)
[2022-08-25 09:50] LABS: Bacteria Urine Trace /hpf; Mucus Urine Rare /lpf; Squamous Epithelial Cell Urine Rare /hpf (Few); WBC Urine >75 /hpf
[2022-08-25] MEDS: ACETAMINOPHEN 500 MG TABLET 1000 MG PO (09:51)
[2022-08-25 09:52] LABS: Add Urine Microscopic? YES; Blood Urine Trace-Intact (Negative)
[2022-08-25 09:56] LABS: Alanine Aminotransferase 18 U/L (6-35); Albumin Level 3.8 g/dL (3.5-5.1); Alkaline Phosphatase 96 U/L (38-126); Anion Gap 8 mmol/L (8-16); Aspartate Amino Transferase 20 U/L (14-36); Bilirubin,Total 0.5 mg/dL (0.2-1.3); Blood Urea Nitrogen 13 mg/dL (7-17); Calcium 8.8 mg/dL (8.4-10.2); Carbon Dioxide 26 mmol/L (22-30); Chloride 99 mmol/L (98-107); Estimated CRCL calculation 74 ml/min; Estimated Glomerular Filt Rate > 60; Glucose 315 mg/dL (65-110); Potassium 3.4 mmol/L (3.4-5.0); Sodium 133 mmol/L (137-145)
[2022-08-25 11:37] VITALS: BP 138/72; PULSE 76; RESP 18; O2SAT 99
== END 2022-08-25 11:51 | disposition home or self-care (01) ==
PROVIDERS: Emergency Provider Nurse Practitioner Family; PCP Physician Assistant
DX: S16.1XXA Strain of muscle, fascia and tendon at neck level, initial encounter (principal); S39.92XA Unspecified injury of lower back, initial encounter; S20.219A Contusion of unspecified front wall of thorax, initial encounter; N39.0 Urinary tract infection, site not specified; R10.9 Unspecified abdominal pain; J45.909 Unspecified asthma, uncomplicated; Z86.718 Personal history of other venous thrombosis and embolism; Z86.16 Personal history of COVID-19; E11.43 Type 2 diabetes mellitus with diabetic autonomic (poly)neuropathy; K31.84 Gastroparesis; E78.5 Hyperlipidemia, unspecified; I10 Essential (primary) hypertension; E11.40 Type 2 diabetes mellitus with diabetic neuropathy, unspecified; Z87.01 Personal history of pneumonia (recurrent); Z86.010 Personal history of colon polyps; Z79.84 Long term (current) use of oral hypoglycemic drugs; Z79.01 Long term (current) use of anticoagulants; K76.0 Fatty (change of) liver, not elsewhere classified; M47.816 Spondylosis without myelopathy or radiculopathy, lumbar region; M47.812 Spondylosis without myelopathy or radiculopathy, cervical region; V49.40XA Driver injured in collision with unspecified motor vehicles in traffic accident, initial encounter
CPT/HCPCS: 36415; 71260; 72125; 72131; 73630; 74177; 80053; 81001; 81025; 85025; 87077; 87086; 87186; 99284; A9270; Q9967

== ENCOUNTER 2023-03-27 01:16 | Emergency (ER) | payer OTHER, SELFPAY ==
[2023-03-27] VITALS (9 sets, daily range): BP systolic 127–160; BP diastolic 66–83; PULSE 66–73; RESP 15–21; TEMP 36.9; O2SAT 94–99
--- NOTE | ~2023-03-27 | CT_ITS ---
CT of the Abdomen and Pelvis: Indication: Abdominal pain Technique: 2.5 mm axial scans were obtained through the abdomen and pelvis following intravenous adm inistration of 100 cc of Omnipaque 350. Dose reduction technique was used on this scan by utilizing a utomated exposure control and iterative reconstruction technique. The dose-length product (DLP) was 5 29.67 mGy-cm. COMPARISON: 08/25/2022 Findings: Scans through the lung bases are unremarkable. The liver, spleen, pancreas, gallbladder, adrenals and kidneys are within normal limits. No evidence of aortic aneurysm. No lymphadenopathy. No bowel obstruction or bowel wall thickening. There is no evidence to suggest acute appendicitis. Images through the pelvis were performed. Urinary bladder unremarkable. No adnexal mass evident. No a scites. Impression: No significant abnormalities seen. Reviewed, dictated and finalized at [facility]. Impression: No significant abnormalities seen.
[2023-03-27 02:15] LABS: Appearance Urine Clear (Clear); Bacteria Urine None Seen /hpf; Bilirubin Urine Negative (Negative); Blood Urine Trace (Negative); Color Urine Yellow (Yellow); Glucose Urine UA 3+ mg/dL (Negative); Ketones Urine Negative (Negative); Leukocyte Esterase Ur Negative LEU/UL (Negative); Nitrate Urine Negative (Negative); Non Pathogenic Casts 0-2; Protein Urine Negative (Negative); RBC Urine 0-2 /hpf (0-2); Squamous Epithelial Cell Urine None seen /hpf (Few); WBC Urine 0-5 /hpf
[2023-03-27 02:17] LABS: Alanine Aminotransferase 24 U/L (6-35); Albumin Level 4.5 g/dL (3.5-5.1); Alkaline Phosphatase 89 U/L (38-126); Anion Gap 6 mmol/L (8-16); Aspartate Amino Transferase 21 U/L (14-36); Bilirubin,Total 0.6 mg/dL (0.2-1.3); Blood Urea Nitrogen 13 mg/dL (7-17); Calcium 9.1 mg/dL (8.4-10.2); Carbon Dioxide 29 mmol/L (22-30); Chloride 99 mmol/L (98-107); Estimated CRCL calculation 74 ml/min; Estimated Glomerular Filt Rate > 60; Glucose 357 mg/dL (65-110); Lipase 46 U/L (23-300); Potassium 3.4 mmol/L (3.4-5.0); Sodium 134 mmol/L (137-145)
[2023-03-27 02:23] LABS: Basophils Absolute Auto 0.1 K/mm3 (0.0-0.1); Basophils Percent Auto 0.9 % (0.2-1.2); Eosinophils Absolute Auto 0.4 K/mm3 (0-0.3); Eosinophils Percent Auto 7.7 % (0-4.4); Hematocrit 45.7 % (37.0-47.0); Hemoglobin 15.3 g/dL (12.0-15.0); Immature Granulocyte Absolute 0.01 K/mm3 (0.00-0.031); Immature Granulocyte Percent A 0.2 % (0-0.5); Lymphocytes Absolute Auto 2.11 K/mm3 (0.9-3.2); Lymphocytes Percent Auto 39.5 % (18.3-44.2); Mean Corpuscular HGB Conc 33.5 g/dl (32-36); Mean Corpuscular Hemoglobin 30.1 pg (26-34); Mean Corpuscular Volume 89.8 fl (80-100); Mean Platelet Volume 11.3 fl (7.4-10.4); Monocytes Absolute Auto 0.4 K/mm3 (0.1-0.6); Monocytes Percent Auto 7.7 % (2.6-8.5); Neutrophils Absolute Auto 2.4 K/mm3 (1.3-6.7); Platelet Count Result 184 k/mm3 (150-375); Red Blood Count 5.09 M/mm3 (4.2-5.4); Red Cell Distribution Width 12.4 % (11.5-14.5); White Blood Count 5.3 K/mm3 (4.5-10.0)
--- NOTE | 2023-03-27 02:23 | ED.ABDPAIN ---
HPI - Abdominal Pain General Chief Complaint: Abdominal Pain Stated Complaint: groin pain Time Seen by Provider: 03/27/23 01:43 History of Present Illness HPI narrative: This is a 52-year-old female with past medical history of DVTs on Eliquis, diabetes and hypertension, who the emergency department complaining of left lower quadrant abdominal pain. She states pain began approximately 12 hours ago. It is described as sharp, aggravated by movement without nausea or vomiting. She has no other complaints. Related Data Home Medications Medication Instructions Recorded Confirmed apixaban 5 mg tablet (Eliquis) 5 mg PO DAILY 06/16/20 07/19/21 duloxetine 60 mg capsule,delayed 60 mg PO HS 06/16/20 07/19/21 release ezetimibe 10 mg tablet 10 mg PO DAILY 06/16/20 07/19/21 losartan 50 mg tablet 50 mg PO DAILY 06/16/20 07/19/21 metformin 1,000 mg tablet 1,000 mg PO BID 06/16/20 07/19/21 insulin glargine 100 unit/mL (3 25 unit subcut HS 12/07/20 07/19/21 mL) subcutaneous pen (Basaglar KwikPen U-100 Insulin) pregabalin 150 mg capsule 150 mg PO BID 12/07/20 07/19/21 sitagliptin phosphate 100 mg 100 mg PO DAILY 12/07/20 07/19/21 tablet (Januvia) Allergies Allergy/AdvReac Type Severity Reaction Status Date / Time No Known Allergies Allergy Unknown Verified 02/13/23 12:43 Review of Systems Review of Systems: CONSTITUTIONAL: Denies fever, chills, or sweats. CARDIOVASCULAR: Denies chest pain, palpitations, or edema. RESPIRATORY: Denies cough or dyspnea. GASTROINTESTINAL: Left lower quadrant abdominal pain denies nausea, vomiting, or diarrhea. GENITOURINARY: Denies dysuria or hematuria. SKIN: Denies rash or itching. MUSCULOSKELETAL: Denies back pain, joint pain, or myalgia. NEUROLOGIC: Denies headache, numbness, dizziness, or weakness. PSYCHIATRIC: Denies anxiety or depression. [facility] Past Medical History Medical History Adenomatous colon polyp Asthma Chronic anticoagulation COVID-19 Diabetes mellitus DVT (deep venous thrombosis) Epigastric pain Gastroparesis H. pylori infection HLD (hyperlipidemia) HTN (hypertension) Neuropathy Perirectal abscess Perirectal ulcer Pneumonia due to 2019-nCoV Renal abscess Renal cyst Surgical History Surgical History H/O section H/O colonoscopy H/O esophagogastroduodenoscopy History of tonsillectomy Family History Family History Mother Diabetes mellitus Heart disease Acute myocardial infarction Sibling Diabetes mellitus Social History Social History Smoking status: Never smoker Second hand tobacco smoke exposure: Yes Alcohol intake: never Substance use: never Substance use type: does not use Gender identity (if verbalized by the patient): Female Sexual Orientation (if Verbalized by the Patient): Straight or Heterosexual Spiritual care concerns: No Exam Narrative: GENERAL: Well-developed, well-nourished, appears uncomfortable HEAD: Normocephalic, atraumatic. EYES: PERRLA and EOMI. ENT: Nares clear, no rhinorrhea or epistaxis. Mucous membranes moist. Oropharynx without tonsillar hypertrophy exudate or other lesions. CHEST: Clear to auscultation. No respiratory distress. No wheezes rales or rhonchi HEART: Regular rate and rhythm. No murmur heard. Normal peripheral pulses. ABDOMEN: Soft, mild tenderness to palpation in the left lower quadrant without mass or rebound, nondistended, normal active bowel sounds. EXTREMITIES: Normal range of motion. No edema. SKIN: Warm, dry, no rash. NEURO: No focal deficits. Alert and oriented x3. PSYCH: Normal mood and affect. Course Course Emergency Course: 02:46 - UA not concerning for UTI. Chemistries demonstrate hyperglycemia at 357 but a normal anion gap of 6 and mi
[2023-03-27 02:37] LABS: Specific Grav Ur 1.044 (1.001-1.035)
[2023-03-27 02:39] LABS: Add Urine Microscopic? YES
[2023-03-27] MEDS: MORPHINE SULFATE (*CRX) 4 MG/ML INJ IV PUSH (02:40)
[2023-03-27] MEDS: ONDANSETRON INJ 4 MG/2 ML VIAL IV PUSH (02:40)
== END 2023-03-27 04:07 | disposition home or self-care (01) ==
PROVIDERS: Emergency Provider Preventive Medicine Aerospace Medicine; PCP Internal Medicine Gastroenterology
DX: R10.32 Left lower quadrant pain (principal); I10 Essential (primary) hypertension; E11.43 Type 2 diabetes mellitus with diabetic autonomic (poly)neuropathy; K31.84 Gastroparesis; E11.40 Type 2 diabetes mellitus with diabetic neuropathy, unspecified; J45.909 Unspecified asthma, uncomplicated; Z86.718 Personal history of other venous thrombosis and embolism; Z86.010 Personal history of colon polyps; Z86.16 Personal history of COVID-19; Z87.01 Personal history of pneumonia (recurrent); Z79.01 Long term (current) use of anticoagulants; Z79.4 Long term (current) use of insulin; Z79.84 Long term (current) use of oral hypoglycemic drugs
CPT/HCPCS: 36415; 74177; 80053; 81001; 81025; 83690; 85025; 96374; 96375; 99284; J2270; J2405; Q9967

== ENCOUNTER 2023-04-27 21:34 | Emergency (ER) | payer OTHER, SELFPAY ==
[2023-04-27] VITALS (13 sets, daily range): BP systolic 108–161; BP diastolic 74–103; PULSE 72–104; RESP 13–20; TEMP 36.2; O2SAT 95–100
--- NOTE | ~2023-04-27 | CT_ITS ---
CT of the Abdomen and Pelvis: Indication: Abdominal pain Technique: 2.5 mm axial scans were obtained through the abdomen and pelvis following intravenous adm inistration of 100 cc of Omnipaque 350. Dose reduction technique was used on this scan by utilizing a utomated exposure control and iterative reconstruction technique. The dose-length product (DLP) was 3 71.25 mGy-cm. COMPARISON: 03/19/2023 Findings: Scans through the lung bases are unremarkable. The liver, spleen, pancreas, gallbladder, adrenals and kidneys are within normal limits. No evidence of aortic aneurysm. No lymphadenopathy. No bowel obstruction or bowel wall thickening. There is no evidence to suggest acute appendicitis. Images through the pelvis were performed. Urinary bladder unremarkable. No adnexal mass seen. No asci yefri. Impression: No significant abnormalities seen. Reviewed, dictated and finalized at [facility]. Impression: No significant abnormalities seen.
--- NOTE | ~2023-04-27 | XR_ITS ---
Clinical Indication: Weakness AP and lateral views of the chest: Comparison: 07/15/2022 Findings: The lungs are clear, without evidence of focal consolidation or pleural effusion. Cardiome diastinal silhouette is within normal limits. Bones and soft tissues are unremarkable. Impression: Normal chest. Reviewed, dictated and finalized at location . Impression: Normal chest.
--- NOTE | 2023-04-27 21:41 | ECG_ITS ---
Measurements Intervals [place] Rate: 85 P: 13 DC: 166 QRS: -10 QRSD: 99 T: 31 QT: 393 QTc: 468 Interpretive Statements SINUS RHYTHM ANTEROSEPTAL INFARCT, AGE INDETERMINATE INFERIOR INFARCT, AGE INDETERMINATE BORDERLINE ST ABNORMALITY- HIGH LATERAL LEADS ABNORMAL ECG COMPARED TO ECG 07/15/2022 13:29:28 SINUS RHYTHM NOW PRESENT Electronically Signed On 04-28-2023 6:44:33 CDT by Satya Mccrary D.O.
--- NOTE | 2023-04-27 21:48 | ED.DIZZY ---
HPI - Dizziness General Chief Complaint: Dizziness <АННА Sidhu Last Filed: 04/28/23 02:28> Stated Complaint: dizziness x1 week <АННА Sidhu Last Filed: 04/28/23 02:28> Time Seen by Provider: 04/27/23 21:40 <АННА Sidhu Last Filed: 04/28/23 02:28> History of Present Illness HPI Narrative: Patient is a 52-year-old female with history of type 2 diabetes here due to fatigue, nausea, lightheadedness and difficulty controlling her blood sugars for the past week. Patient states her symptoms have come on gradually since onset but tonight they have acutely worsened and she has some difficulty getting out of bed. She states that her blood sugars have run in the 500s all week despite compliance with her insulin. Patient has had some epigastric abdominal discomfort in addition to some left lower quadrant abdominal pain over the past week. She reports some diarrhea as well. She denies any sinus congestion, chest pain, cough, shortness of breath, leg swelling. <АННА Sidhu Last Filed: 04/28/23 02:28> Related Data Home Medications: Home Medications Medication Instructions Recorded Confirmed apixaban 5 mg tablet (Eliquis) 5 mg PO DAILY 06/16/20 07/19/21 duloxetine 60 mg capsule,delayed 60 mg PO HS 06/16/20 07/19/21 release ezetimibe 10 mg tablet 10 mg PO DAILY 06/16/20 07/19/21 losartan 50 mg tablet 50 mg PO DAILY 06/16/20 07/19/21 metformin 1,000 mg tablet 1,000 mg PO BID 06/16/20 07/19/21 insulin glargine 100 unit/mL (3 25 unit subcut HS 12/07/20 07/19/21 mL) subcutaneous pen (Basaglar KwikPen U-100 Insulin) pregabalin 150 mg capsule 150 mg PO BID 12/07/20 07/19/21 sitagliptin phosphate 100 mg 100 mg PO DAILY 12/07/20 07/19/21 tablet (Januvia) <АННА Sidhu Last Filed: 04/28/23 02:28> Allergies/Adverse Reactions: Allergies Allergy/AdvReac Type Severity Reaction Status Date / Time No Known Allergies Allergy Unknown Verified 02/13/23 12:43 <Ijeoma Gonzalez PA-C - Last Filed: 04/28/23 02:28> Review of Systems Review of Systems: Gen.: Reports lightheadedness Eyes: Denies eye pain or visual change ENT: Denies congestion Respiratory: Denies shortness of breath or cough CV: Denies chest pain or palpitations GI: Denies abdominal pain nausea, emesis or diarrhea : denies burning, urgency, frequency or hematuria Musculoskeletal: Denies back pain or muscle pain Neuro: Denies numbness, tingling, weakness or focal weakness Skin: Denies rash Except as documented, all other systems reviewed and negative <Ijeoma Gonzalez PA-C - Last Filed: 04/28/23 02:28> [facility] Past Medical History Medical History: Medical History Adenomatous colon polyp Asthma Chronic anticoagulation COVID-19 Diabetes mellitus DVT (deep venous thrombosis) Epigastric pain Gastroparesis H. pylori infection HLD (hyperlipidemia) HTN (hypertension) Neuropathy Perirectal abscess Perirectal ulcer Pneumonia due to 2019-nCoV Renal abscess Renal cyst <Ijeoma Gonzalez PA-C - Last Filed: 04/28/23 02:28> Surgical History Surgical History: Surgical History H/O section H/O colonoscopy H/O esophagogastroduodenoscopy History of tonsillectomy <АННА Sidhu Last Filed: 04/28/23 02:28> Family History Family History: Family History Mother Diabetes mellitus Heart disease Acute myocardial infarction Sibling Diabetes mellitus <АННА Sidhu Last Filed: 04/28/23 02:28> Social History Social History: Social History Smoking status: Never smoker Second hand tobacco smoke exposure: Yes Alcohol intake: never Substance use
[2023-04-27 21:52] LABS: Glucose Point of Care 373 mg/dl (65-105)
[2023-04-27 21:55] LABS: Basophils Absolute Auto 0.1 K/mm3 (0.0-0.1); Basophils Percent Auto 0.6 % (0.2-1.2); Eosinophils Absolute Auto 0.2 K/mm3 (0-0.3); Hematocrit 50.6 % (37.0-47.0); Hemoglobin 17.8 g/dL (12.0-15.0); Immature Granulocyte Absolute 0.02 K/mm3 (0.00-0.031); Immature Granulocyte Percent A 0.3 % (0-0.5); Lymphocytes Absolute Auto 3.04 K/mm3 (0.9-3.2); Lymphocytes Percent Auto 38.3 % (18.3-44.2); Mean Corpuscular HGB Conc 35.2 g/dl (32-36); Mean Corpuscular Hemoglobin 30.1 pg (26-34); Mean Corpuscular Volume 85.5 fl (80-100); Mean Platelet Volume 10.7 fl (7.4-10.4); Monocytes Absolute Auto 0.7 K/mm3 (0.1-0.6); Monocytes Percent Auto 9.1 % (2.6-8.5); Neutrophils Percent Auto 49.7 % (45.5-73.1); Platelet Count Result 229 k/mm3 (150-375); Red Blood Count 5.92 M/mm3 (4.2-5.4); Red Cell Distribution Width 11.9 % (11.5-14.5); White Blood Count 7.9 K/mm3 (4.5-10.0)
[2023-04-27] MEDS: SODIUM CHLORIDE 0.9% IV 1,000 ML 999 ML IV CONT ×2 (22:02→22:54)
[2023-04-27 22:08] LABS: Lactic Acid Reflex 1.6 mmol/L (0.7-2.0)
[2023-04-27 22:09] LABS: Alanine Aminotransferase 25 U/L (6-35); Albumin Level 4.8 g/dL (3.5-5.1); Alkaline Phosphatase 96 U/L (38-126); Anion Gap 11 mmol/L (8-16); Aspartate Amino Transferase 35 U/L (14-36); Bilirubin,Total 0.9 mg/dL (0.2-1.3); Blood Urea Nitrogen 23 mg/dL (7-17); Calcium 9.2 mg/dL (8.4-10.2); Carbon Dioxide 33 mmol/L (22-30); Chloride 87 mmol/L (98-107); Estimated CRCL calculation 63 ml/min; Estimated Glomerular Filt Rate > 60; Glucose 371 mg/dL (65-110); Potassium 3.4 mmol/L (3.4-5.0); Sodium 131 mmol/L (137-145)
[2023-04-27 22:12] LABS: Beta-Hydroxybutyrate/Acetoacetate 3.07 mmol/L (0.02-0.27)
[2023-04-27 22:12] LABS: Fractional Inspired Oxygen 21 %; HCO3 VBG 23.2 mEq/l (24.0-30.0); PO2 VBG 60.2 mmHg (35.0-45.0)
[2023-04-27 22:14] LABS: PCO2 VBG 29.8 mmHg (42.0-48.0); pH VBG 7.509 (7.300-7.400)
[2023-04-27 22:15] LABS: Device ROOM AIR
[2023-04-27 22:20] LABS: Lipase 159 U/L (23-300)
[2023-04-27 22:33] LABS: Influenza A QL RT-PCR Negative (Negative); Influenza B QL RT-PCR Negative (Negative); SARS-CoV-2 RNA PCR Negative (Negative)
[2023-04-27 23:03] LABS: Appearance Urine Clear (Clear); Bilirubin Urine Negative (Negative); Blood Urine Negative (Negative); Color Urine Yellow (Yellow); Glucose Urine UA 3+ mg/dL (Negative); Ketones Urine 3+ mg/dL (Negative); Leukocyte Esterase Ur Negative LEU/UL (Negative); Nitrate Urine Negative (Negative); Protein Urine Negative (Negative); Urobilinogen Urine 0.2 mg/dL (<2.0); pH Urine 5.5 (5.0-9.0)
[2023-04-27 23:07] LABS: Specific Grav Ur 1.039 (1.001-1.035)
[2023-04-27 23:08] LABS: Add Urine Microscopic? YES
[2023-04-27 23:22] LABS: Magnesium 2.4 mg/dL (1.6-2.3)
[2023-04-28] VITALS (8 sets, daily range): BP systolic 130–132; BP diastolic 74–84; PULSE 69–80; RESP 12–20; O2SAT 95–99
[2023-04-28] MEDS: FAMOTIDINE 20 MG/2 ML VIAL IV PUSH (01:04)
[2023-04-28] MEDS: ONDANSETRON INJ 4 MG/2 ML VIAL IV PUSH (01:04)
[2023-04-28 01:11] LABS: Glucose Point of Care 220 mg/dl (65-105)
[2023-04-28] MEDS: SODIUM CHLORIDE 0.9% IV 1,000 ML 999 ML IV CONT (01:24)
[2023-04-28 01:41] LABS: Fractional Inspired Oxygen 21 %; HCO3 VBG 28.3 mEq/l (24.0-30.0); PCO2 VBG 46.5 mmHg (42.0-48.0); PO2 VBG 28.7 mmHg (35.0-45.0)
[2023-04-28 01:42] LABS: Device ROOM AIR; pH VBG 7.402 (7.300-7.400)
[2023-04-28 01:46] LABS: Troponin I < 0.012 ng/mL (0.000-0.034)
== END 2023-04-28 03:19 | disposition home or self-care (01) ==
PROVIDERS: Emergency Provider Physician Assistant; PCP Internal Medicine Gastroenterology
DX: E86.0 Dehydration (principal); R11.0 Nausea; J45.909 Unspecified asthma, uncomplicated; E78.5 Hyperlipidemia, unspecified; I10 Essential (primary) hypertension; E11.40 Type 2 diabetes mellitus with diabetic neuropathy, unspecified; E11.43 Type 2 diabetes mellitus with diabetic autonomic (poly)neuropathy; K31.84 Gastroparesis; Z86.718 Personal history of other venous thrombosis and embolism; Z86.16 Personal history of COVID-19; Z87.01 Personal history of pneumonia (recurrent); Z77.22 Contact with and (suspected) exposure to environmental tobacco smoke (acute) (chronic); Z86.010 Personal history of colon polyps; Z79.4 Long term (current) use of insulin; Z79.84 Long term (current) use of oral hypoglycemic drugs; Z79.01 Long term (current) use of anticoagulants; R94.31 Abnormal electrocardiogram [ECG] [EKG]
CPT/HCPCS: 36415; 71046; 74177; 80053; 81001; 82010; 82803; 82948; 83605; 83690; 83735; 84484; 85025; 87636; 93005; 96361; 96374; 96375; 99284; J2405; J7030; Q9967

== ENCOUNTER 2023-07-02 18:54 | Emergency (ER) | payer OTHER, SELFPAY ==
[2023-07-02 19:04] VITALS: BP 169/94; PULSE 80; RESP 16; TEMP 36.8; O2SAT 98
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
== END 2023-07-02 19:34 | disposition home or self-care (01) ==
PROVIDERS: Emergency Provider Nurse Practitioner Family; PCP Internal Medicine Gastroenterology
DX: H60.502 Unspecified acute noninfective otitis externa, left ear (principal); M54.6 Pain in thoracic spine; J45.909 Unspecified asthma, uncomplicated; E11.40 Type 2 diabetes mellitus with diabetic neuropathy, unspecified; E11.43 Type 2 diabetes mellitus with diabetic autonomic (poly)neuropathy; K31.84 Gastroparesis; Z79.4 Long term (current) use of insulin; E78.5 Hyperlipidemia, unspecified; I10 Essential (primary) hypertension; Z86.718 Personal history of other venous thrombosis and embolism
CPT/HCPCS: 99213; G0463

== ENCOUNTER 2023-07-07 07:10 | Emergency (ER) | payer OTHER, SELFPAY ==
[2023-07-07 07:10] VITALS: BP 162/101; PULSE 88; RESP 16; TEMP 36.4; O2SAT 99
--- NOTE | 2023-07-07 09:36 | ED.GENADULT ---
HPI - General Adult General Chief complaint: Ear Stated complaint: left ear swelling Time Seen by Provider: 07/07/23 09:00 History of Present Illness HPI narrative: Madhavi Stein is a 53 y/o female who presents with reports of left ear pain that has been ongoing for about 2 weeks. She states that she went to an a couple days ago and was started on ear drops but she feels like her pain has become worse. Related Data Home Medications Medication Instructions Recorded Confirmed apixaban 5 mg tablet (Eliquis) 5 mg PO DAILY 06/16/20 07/19/21 duloxetine 60 mg capsule,delayed 60 mg PO HS 06/16/20 07/19/21 release losartan 50 mg tablet 50 mg PO DAILY 06/16/20 07/19/21 metformin 1,000 mg tablet 1,000 mg PO BID 06/16/20 07/19/21 insulin glargine 100 unit/mL (3 25 unit subcut HS 12/07/20 07/19/21 mL) subcutaneous pen (Basaglar KwikPen U-100 Insulin) pregabalin 150 mg capsule 150 mg PO BID 12/07/20 07/19/21 sitagliptin phosphate 100 mg 100 mg PO DAILY 12/07/20 07/19/21 tablet (Januvia) Allergies Allergy/AdvReac Type Severity Reaction Status Date / Time No Known Allergies Allergy Unknown Verified 07/07/23 07:12 Review of Systems Review of Systems: CONSTITUTIONAL: Denies fever, chills, or sweats. EYES: Denies visual changes, redness, or discharge. ENT: Denies rhinorrhea, congestion, sore throat, complains of left ear pain CARDIOVASCULAR: Denies chest pain, palpitations, or edema. RESPIRATORY: Denies cough or dyspnea. GASTROINTESTINAL: Denies abdominal pain, nausea, vomiting, or diarrhea. GENITOURINARY: Denies dysuria or hematuria. SKIN: Denies rash or itching. MUSCULOSKELETAL: Denies back pain, joint pain, or myalgia. NEUROLOGIC: Denies headache, numbness, dizziness, or weakness. PSYCHIATRIC: Denies anxiety or depression. [facility] Past Medical History Medical History Adenomatous colon polyp Asthma Chronic anticoagulation COVID-19 Diabetes mellitus DVT (deep venous thrombosis) Epigastric pain Gastroparesis H. pylori infection HLD (hyperlipidemia) HTN (hypertension) Neuropathy Perirectal abscess Perirectal ulcer Pneumonia due to 2019-nCoV Renal abscess Renal cyst Surgical History Surgical History H/O section H/O colonoscopy H/O esophagogastroduodenoscopy History of tonsillectomy Family History Family History Mother Diabetes mellitus Heart disease Acute myocardial infarction Sibling Diabetes mellitus Social History Social History Smoking status: Never smoker Second hand tobacco smoke exposure: Yes Alcohol intake: never Substance use: never Substance use type: does not use Gender identity (if verbalized by the patient): Female Sexual Orientation (if Verbalized by the Patient): Straight or Heterosexual Spiritual care concerns: No Exam Narrative: GENERAL: Well-appearing, well-nourished, and in no acute distress. HEAD: Normocephalic, atraumatic. EYES: PERRLA and EOMI. ENT: Nares clear, no rhinorrhea or epistaxis. Mucous membranes moist. Oropharynx without tonsillar hypertrophy exudate or other lesions. TM's cloudy/ partially obscured by cerumen NECK: Supple. No adenopathy or masses. No carotid bruits or JVD CHEST: Clear to auscultation. No respiratory distress. No wheezes rales or rhonchi HEART: Regular rate and rhythm. No murmur heard. Normal peripheral pulses. ABDOMEN: Soft, nontender, nondistended, normal active bowel sounds. EXTREMITIES: Normal range of motion. No edema. SKIN: Warm, dry, no rash. NEURO: No focal deficits. Alert and oriented x3. PSYCH: Normal mood and affect. Course Vital Signs Vital signs: Vital Signs Temperature 36.4 C 07/07/23 07:10 Pulse Rate 88 07/07/23 07:10 Respiratory Rate 16 07/07/23 07:10 Blood P
[2023-07-07] MEDS: ACETAMINOPHEN 500 MG TABLET 1000 MG PO (09:50)
[2023-07-07] MEDS: KETOROLAC 30 MG/ML VIAL (*BKC) IM (09:50)
[2023-07-07] MEDS: AMOXICILLIN/CLAVULANATE K 875-125 MG TAB 1 TABLET PO (09:50)
[2023-07-07 10:00] VITALS: BP 124/78; PULSE 84; RESP 19; O2SAT 100
== END 2023-07-07 10:00 | disposition home or self-care (01) ==
PROVIDERS: Emergency Provider Nurse Practitioner Family; PCP Internal Medicine Gastroenterology
DX: H65.02 Acute serous otitis media, left ear (principal); E11.43 Type 2 diabetes mellitus with diabetic autonomic (poly)neuropathy; K31.84 Gastroparesis; E11.40 Type 2 diabetes mellitus with diabetic neuropathy, unspecified; I10 Essential (primary) hypertension; E78.5 Hyperlipidemia, unspecified; J45.909 Unspecified asthma, uncomplicated; Z86.010 Personal history of colon polyps; Z86.16 Personal history of COVID-19; Z86.718 Personal history of other venous thrombosis and embolism; Z79.01 Long term (current) use of anticoagulants; Z79.4 Long term (current) use of insulin; Z79.84 Long term (current) use of oral hypoglycemic drugs; Z87.01 Personal history of pneumonia (recurrent)
CPT/HCPCS: 96372; 99283; A9270; J1885

== ENCOUNTER 2023-11-25 05:09 | Emergency (ER) | payer OTHER, SELFPAY ==
[2023-11-25 05:10] VITALS: BP 150/74; PULSE 76; RESP 16; TEMP 36.6; O2SAT 100
[2023-11-25 07:24] VITALS: BP 127/87; PULSE 78; RESP 16; TEMP 36.9; O2SAT 97
--- NOTE | 2023-11-25 08:01 | PC.NURSE ---
ERP used 18g angiocath and opened area and expressed bloody drainage from area
--- NOTE | 2023-11-25 08:18 | ED.EAR ---
HPI - Ear Problem General Chief complaint: Ear Stated complaint: ear Time Seen by Provider: 11/25/23 07:36 History of Present Illness HPI Narrative: Patient is a 53-year-old female who presents to the ER with pain to the right ear. She feels a bump in has had drainage from the area of the last 2 days. No difficulty hearing. Denies fevers or chills or sweats. Pain radiates down her jaw and neck. Related Data Home Medications Medication Instructions Recorded Confirmed apixaban 5 mg tablet (Eliquis) 5 mg PO DAILY 06/16/20 07/19/21 duloxetine 60 mg capsule,delayed 60 mg PO HS 06/16/20 07/19/21 release losartan 50 mg tablet 50 mg PO DAILY 06/16/20 07/19/21 metformin 1,000 mg tablet 1,000 mg PO BID 06/16/20 07/19/21 insulin glargine 100 unit/mL (3 25 unit subcut HS 12/07/20 07/19/21 mL) subcutaneous pen ([employer]ag[employer] KwikPen U-100 Insulin) pregabalin 150 mg capsule 150 mg PO BID 12/07/20 07/19/21 sitagliptin phosphate 100 mg 100 mg PO DAILY 12/07/20 07/19/21 tablet (Januvia) Allergies Allergy/AdvReac Type Severity Reaction Status Date / Time No Known Allergies Allergy Unknown Verified 07/07/23 07:12 Review of Systems Constitutional: Constitutional: Denies chills and Denies fever(s) ENT: Denies nasal congestion and Denies sore throat Comments: Right ear pain PMFSH Past Medical History Medical History Adenomatous colon polyp Asthma Chronic anticoagulation COVID-19 Diabetes mellitus DVT (deep venous thrombosis) Epigastric pain Gastroparesis H. pylori infection HLD (hyperlipidemia) HTN (hypertension) Neuropathy Perirectal abscess Perirectal ulcer Pneumonia due to 2019-nCoV Renal abscess Renal cyst Surgical History Surgical History H/O section H/O colonoscopy H/O esophagogastroduodenoscopy History of tonsillectomy Family History Family History Mother Diabetes mellitus Heart disease Acute myocardial infarction Sibling Diabetes mellitus Social History Social History Smoking status: Never smoker Second hand tobacco smoke exposure: Yes Alcohol intake: never Substance use: never Substance use type: does not use Gender identity (if verbalized by the patient): Female Sexual Orientation (if Verbalized by the Patient): Straight or Heterosexual Spiritual care concerns: No Exam Narrative: GENERAL: Well-appearing, well-nourished, and in no acute distress. HEAD: Normocephalic, atraumatic. ENT: Mucous membranes moist. abscess in the ear canal near the tragus. No cellulitis. TMs normal. NECK: Supple. NEURO: Alert and oriented x3. PSYCH: Normal mood and affect. Course Course Emergency Course: Successful needle aspiration. Discharge with antibiotics and pain medication Vital Signs Vital signs: Vital Signs Temperature 97.8 F 11/25/23 05:10 Pulse Rate 76 11/25/23 05:10 Respiratory Rate 16 11/25/23 05:10 Blood Pressure 150/74 H 11/25/23 05:10 Pulse Oximetry 100 11/25/23 05:10 Oxygen Delivery Room Air 11/25/23 05:10 Temperature 98.4 F 11/25/23 07:24 Pulse Rate 78 11/25/23 07:24 Respiratory Rate 16 11/25/23 07:24 Blood Pressure 127/87 11/25/23 07:24 Pulse Oximetry 97 11/25/23 07:24 Oxygen Delivery Room Air 11/25/23 05:10 Procedures Abscess I/D other: Date of Incision: 11/25/23 Time of Incision: 08:00 Side (if applicable): right Technique: needle aspiration Packing used?: none I&D Results: Pus Complications: pain Medical Decision Making Vital Signs Vital Signs: Vital Signs Temperature 97.8 F 11/25/23 05:10 Pulse Rate 76 11/25/23 05:10 Respiratory Rate 16 11/25/23 05:10 Blood Pressure 150/74 H 11/25/23 05:10 Pulse Ox
[2023-11-25 08:24] VITALS: BP 126/70; PULSE 74; RESP 16; TEMP 36.3; O2SAT 98
== END 2023-11-25 08:26 | disposition home or self-care (01) ==
PROVIDERS: Emergency Provider Emergency Medicine; PCP Internal Medicine Gastroenterology
DX: H60.02 Abscess of left external ear (principal); E11.9 Type 2 diabetes mellitus without complications; I10 Essential (primary) hypertension
CPT/HCPCS: 69020; 99283

== ENCOUNTER 2023-12-16 10:39 | Emergency (ER) | payer OTHER, SELFPAY ==
--- NOTE | ~2023-12-16 | CT_ITS ---
EXAMINATION: CT thoracic lumbar wo con DATE: 12/16/2023 10:59 INDICATION: Fall. Low and mid back pain TECHNIQUE: Computed tomography (CT) of the thoracic and lumbar spine was performed without intravenou s contrast. Automated exposure control and iterative reconstruction technique were employed. Exam dos e: 1054.44 mGy-cm total exam DLP. COMPARISON: 08/25/2022 CT lumbar spine FINDINGS: There is prominent degenerative disc disease at C6-7 including loss of disc space height an d anterior posterior spurring. There is moderate degenerative disc disease at C5-6. There is mild anterior wedging at multiple thoracic vertebral bodies, including T7, T10, and T11, lik jay chronic. No recent fracture is identified. There are prominent bridging osteophytes of the thoracic spine. No thoracic spine bone destruction. The thoracic pedicles are intact. Normal alignment of the lumbar vertebrae. Lumbar and lumbosacral interspaces are well preserved. Ther e is mild degenerative spurring of the lumbar spine. No fracture or bone destruction, spondylolysis o r spondylolisthesis. There is mild bulging of the discs in the mid and lower lumbar spine but no herniated nucleus pulposu s is evident. The sacroiliac joints are intact. IMPRESSION: Degenerative changes of the lower cervical, thoracic and lumbar spine; no recent fractur e of the thoracic or lumbar spine is detected. Reviewed, dictated and finalized at [facility]. Reviewed, dictated and finalized at [facility]. [employer] IMPRESSION: Degenerative changes of the lower cervical, thoracic and lumbar sp ine; no recent fracture of the thoracic or lumbar spine is detected.
[2023-12-16 10:40] VITALS: BP 145/119; PULSE 99; RESP 18; TEMP 36.2; O2SAT 97
--- NOTE | 2023-12-16 10:49 | ED.FALL ---
HPI - Fall General Chief Complaint: Fall Stated Complaint: fell down 3 stairs Time Seen by Provider: 12/16/23 10:49 History of Present Illness HPI Narrative: Patient is a 53-year-old female who presents to the emergency department this after a slip and fall. Patient states that she slipped and missed the last 3 steps while going down some stairs and fell backwards on her butt. Patient is complaining of lower back pain mainly on the left lower back. Patient was ambulatory at the scene, denies hitting her head and denies any other injuries. Patient denies any additional symptoms including chest pain, shortness of breath, nausea, vomiting, abdominal pain, dysuria, hematuria, constipation, diarrhea, melena, hematochezia, fevers or chills. Patient also denies any headaches, dizziness, lightheadedness, blurry visions, focal weakness, numbness and or tingling. There are no other modifying, alleviating, or precipitating factors at this time. Related Data Home Medications Medication Instructions Recorded Confirmed apixaban 5 mg tablet (Eliquis) 5 mg PO DAILY 06/16/20 07/19/21 duloxetine 60 mg capsule,delayed 60 mg PO HS 06/16/20 07/19/21 release losartan 50 mg tablet 50 mg PO DAILY 06/16/20 07/19/21 metformin 1,000 mg tablet 1,000 mg PO BID 06/16/20 07/19/21 insulin glargine 100 unit/mL (3 25 unit subcut HS 12/07/20 07/19/21 mL) subcutaneous pen (Basaglar KwikPen U-100 Insulin) pregabalin 150 mg capsule 150 mg PO BID 12/07/20 07/19/21 sitagliptin phosphate 100 mg 100 mg PO DAILY 12/07/20 07/19/21 tablet (Januvia) Allergies Allergy/AdvReac Type Severity Reaction Status Date / Time No Known Allergies Allergy Unknown Verified 07/07/23 07:12 Review of Systems Review of Systems: All systems are reviewed and are negative unless stated otherwise in the HPI. [facility] Past Medical History Medical History Adenomatous colon polyp Asthma Chronic anticoagulation COVID-19 Diabetes mellitus DVT (deep venous thrombosis) Epigastric pain Gastroparesis H. pylori infection HLD (hyperlipidemia) HTN (hypertension) Neuropathy Perirectal abscess Perirectal ulcer Pneumonia due to 2019-nCoV Renal abscess Renal cyst Surgical History Surgical History H/O section H/O colonoscopy H/O esophagogastroduodenoscopy History of tonsillectomy Family History Family History Mother Diabetes mellitus Heart disease Acute myocardial infarction Sibling Diabetes mellitus Social History Social History Smoking status: Never smoker Second hand tobacco smoke exposure: Yes Alcohol intake: never Substance use: never Substance use type: does not use Gender identity (if verbalized by the patient): Female Sexual Orientation (if Verbalized by the Patient): Straight or Heterosexual Spiritual care concerns: No Exam Narrative: General: Alert, awake, afebrile, in no acute distress. HEENT: PERRL, no rhinorrhea, no post nasal drip, oropharynx clear. Neck: Trachea midline, no JVD, no lymphadenopathy. Cardiovascular: Regular rate and rhythm, no murmurs, rubs or gallops, no peripheral edema. Respiratory: Clear to auscultation bilaterally, no tachypnea, no wheezing, no rhonchi, no rubs, no respiratory distress. Abdomen: Soft, nontender, nondistended, no rebound, no guarding, no peritoneal signs. Musculoskeletal: No joint swelling or deformity, normal muscle tone, no midline tenderness to palpation over the cervical, thoracic, and lumbar spine, patient does have tenderness to palpation over the left lumbar paraspinal region. Skin: No rashes or petechia, no signs of infection. Psychiatric: Alert and oriented, normal behavior and judgment for situation. Neurological: Alert and oriented to person, place, and time
[2023-12-16 11:22] VITALS: BP 133/81; PULSE 67; RESP 20; O2SAT 100
[2023-12-16] MEDS: HYDROcodone/acetaminophen (*CRX) 5-325 MG TABLET 1 TAB PO (12:31)
[2023-12-16] MEDS: LIDOCAINE 5% PATCH 1 PATCH TRANSDERM (12:35)
== END 2023-12-16 12:37 | disposition home or self-care (01) ==
LOC: ANHED 11:22
PROVIDERS: Emergency Provider Emergency Medicine; PCP Internal Medicine Gastroenterology
DX: S39.012A Strain of muscle, fascia and tendon of lower back, initial encounter (principal); J45.909 Unspecified asthma, uncomplicated; E11.9 Type 2 diabetes mellitus without complications; E78.5 Hyperlipidemia, unspecified; I10 Essential (primary) hypertension; Z79.84 Long term (current) use of oral hypoglycemic drugs; W10.9XXA Fall (on) (from) unspecified stairs and steps, initial encounter; Z79.4 Long term (current) use of insulin
CPT/HCPCS: 72128; 72131; 99284; A9270

== ENCOUNTER 2023-12-23 17:55 | Emergency (ER) | payer OTHER, SELFPAY ==
--- NOTE | ~2023-12-23 | XR_ITS ---
EXAMINATION: XR chest 2V DATE: 12/23/2023 18:17 INDICATION: Productive cough. Right chest discomfort. TECHNIQUE: Frontal and lateral views of the chest were obtained. COMPARISON: Chest 2 views 04/27/2023 FINDINGS: There is no pneumonia, pleural effusion, or pneumothorax. The heart size is normal. IMPRESSION: 1. No acute cardiopulmonary disease. Reviewed, dictated and finalized at [facility]. [employer]
--- NOTE | 2023-12-23 18:00 | ED.URI ---
HPI - URI/Sore Throat General Chief Complaint: Upper Respiratory Infection Stated Complaint: Sinus Time Seen by Provider: 12/23/23 18:02 Source: patient Mode of arrival: ambulatory Limitations: no limitations History of Present Illness HPI Narrative: Madhavi is a 53-year-old female patient presenting to the clinic today with complaints nasal congestion, productive cough with yellow phlegm, shortness breath, body aches, and right-sided chest discomfort with respiration. Has a history of asthma. MD elicited complaint: cough, nasal congestion and other (Shortness of breath, chest discomfort) Related Data Home Medications Medication Instructions Recorded Confirmed apixaban 5 mg tablet (Eliquis) 5 mg PO DAILY 06/16/20 12/23/23 duloxetine 60 mg capsule,delayed 60 mg PO HS 06/16/20 12/23/23 release losartan 50 mg tablet 50 mg PO DAILY 06/16/20 12/23/23 insulin glargine 100 unit/mL (3 25 unit subcut HS 12/07/20 12/23/23 mL) subcutaneous pen (Basaglar KwikPen U-100 Insulin) pregabalin 150 mg capsule 150 mg PO BID 12/07/20 12/23/23 sitagliptin phosphate 100 mg 100 mg PO DAILY 12/07/20 12/23/23 tablet (Januvia) Allergies Allergy/AdvReac Type Severity Reaction Status Date / Time No Known Allergies Allergy Unknown Verified 12/23/23 18:14 Review of Systems Review of Systems: Pertinent positives per HPI. Patient denies any fever, chills, rash, headache, visual changes, dizziness, cough, shortness of breath, chest pain, palpitations, nausea, vomiting, diarrhea, constipation, abdominal pain, or any urinary issues. [facility] Past Medical History Medical History Adenomatous colon polyp Asthma Chronic anticoagulation COVID-19 Diabetes mellitus DVT (deep venous thrombosis) Epigastric pain Gastroparesis H. pylori infection HLD (hyperlipidemia) HTN (hypertension) Neuropathy Perirectal abscess Perirectal ulcer Pneumonia due to 2019-nCoV Renal abscess Renal cyst Surgical History Surgical History H/O section H/O colonoscopy H/O esophagogastroduodenoscopy History of tonsillectomy Family History Family History Mother Diabetes mellitus Heart disease Acute myocardial infarction Sibling Diabetes mellitus Social History Social History Smoking status: Never smoker Second hand tobacco smoke exposure: Yes Alcohol intake: never Substance use: never Substance use type: does not use Gender identity (if verbalized by the patient): Female Sexual Orientation (if Verbalized by the Patient): Straight or Heterosexual Spiritual care concerns: No Comments At the time of my signature, I reviewed and agree with the nursing past medical, surgical, social, and family history. There is no relevant family history pertinent to the patient complaint. Exam Narrative: General: Well-developed, well nourished, in no apparent distress Head: Normocephalic, atraumatic Eyes: Pupils equally round and reactive to light bilaterally, EOM intact, sclera and conjunctive clear, no discharge, lids normal Ears: TMs intact and clear, ear canals clear, no drainage, grossly hearing normal. Nose: Nares patent, clear nasal discharge, no inflammation, no sinus tenderness. Mouth: Oral pharynx without lesions or masses, good dentition, MMM. Neck: Supple, trachea midline, no enlargement of anterior or posterior cervical nodes, no thyroid masses or goiter palpable. Cardio: Regular rate and rhythm, s1 and s2 normal, no murmur appreciated. Resp: Clear to auscultation bilaterally, no rhonchi, rales, wheezing or rubs Course Course Emergency Course: Portions of this record may have been created with voice recognition software. Level of Care: Express Care Visit Vital Signs Vital signs:
[2023-12-23 18:05] VITALS: BP 127/84; PULSE 96; RESP 16; TEMP 36.8; O2SAT 100
== END 2023-12-23 18:25 | disposition home or self-care (01) ==
PROVIDERS: Emergency Provider Nurse Practitioner Family; PCP Internal Medicine Gastroenterology
DX: J10.1 Influenza due to other identified influenza virus with other respiratory manifestations (principal); Z20.822 Contact with and (suspected) exposure to COVID-19; J45.909 Unspecified asthma, uncomplicated; E11.43 Type 2 diabetes mellitus with diabetic autonomic (poly)neuropathy; K31.84 Gastroparesis; Z79.4 Long term (current) use of insulin; E78.5 Hyperlipidemia, unspecified; I10 Essential (primary) hypertension; E11.40 Type 2 diabetes mellitus with diabetic neuropathy, unspecified; Z86.718 Personal history of other venous thrombosis and embolism; Z79.01 Long term (current) use of anticoagulants
CPT/HCPCS: 71046; 87426; 87804; 99213; G0463

== ENCOUNTER 2024-03-15 19:47 | Emergency (ER) | payer OTHER, SELFPAY ==
--- NOTE | 2024-03-15 19:53 | ED.URI ---
HPI - URI/Sore Throat General Chief Complaint: Dental/Oral Stated Complaint: sinus pressure Time Seen by Provider: 03/15/24 19:53 Source: patient Mode of arrival: ambulatory History of Present Illness HPI Narrative: 53-year-old female presented for complaint of left facial pain for 3 days. Endorses sinus congestion and drainage for at least a week, but states this could be dental pain. She was unable to get into the dentist for a month. Taking Tylenol for symptoms. Denies facial swelling, headache, dizziness, nausea, vomiting, fevers or chills. Related Data Home Medications Medication Instructions Recorded Confirmed apixaban 5 mg tablet (Eliquis) 5 mg PO DAILY 06/16/20 03/15/24 duloxetine 60 mg capsule,delayed 60 mg PO HS 06/16/20 03/15/24 release losartan 50 mg tablet 50 mg PO DAILY 06/16/20 03/15/24 insulin glargine 100 unit/mL (3 25 unit subcut HS 12/07/20 03/15/24 mL) subcutaneous pen (Basaglar KwikPen U-100 Insulin) pregabalin 150 mg capsule 150 mg PO BID 12/07/20 03/15/24 sitagliptin phosphate 100 mg 100 mg PO DAILY 12/07/20 03/15/24 tablet (Januvia) Allergies Allergy/AdvReac Type Severity Reaction Status Date / Time No Known Allergies Allergy Unknown Verified 03/15/24 19:49 Review of Systems Review of Systems: CONSTITUTIONAL: Denies body aches, fever, chills ENT: Denies rhinorrhea, congestion, sore throat, or otalgia. Reports dental/left facial pain CARDIOVASCULAR: Denies chest pain, palpitations RESPIRATORY: Denies cough or dyspnea. SKIN: Denies rash, itching, or wounds. MUSCULOSKELETAL: Denies myalgia. NEUROLOGIC: Denies headache, numbness, tingling, or weakness. [facility] Past Medical History Medical History Adenomatous colon polyp Asthma Chronic anticoagulation COVID-19 Diabetes mellitus DVT (deep venous thrombosis) Epigastric pain Gastroparesis H. pylori infection HLD (hyperlipidemia) HTN (hypertension) Neuropathy Perirectal abscess Perirectal ulcer Pneumonia due to 2019-nCoV Renal abscess Renal cyst Surgical History Surgical History H/O section H/O colonoscopy H/O esophagogastroduodenoscopy History of tonsillectomy Family History Family History Mother Diabetes mellitus Heart disease Acute myocardial infarction Sibling Diabetes mellitus Social History Social History Smoking status: Never smoker Second hand tobacco smoke exposure: Yes Alcohol intake: never Substance use: never Substance use type: does not use Gender identity (if verbalized by the patient): Female Sexual Orientation (if Verbalized by the Patient): Straight or Heterosexual Spiritual care concerns: No Comments At time of signature, I have reviewed and agree with nursing past medical, surgical, social and family history unless otherwise noted. Please see nursing chart for further information. There is no relevant family history pertinent to the presenting complaint Exam Narrative: GENERAL: Appears in pain; no acute distress. HEAD: Normocephalic, atraumatic. EYES: EOMI. No redness or drainage. Conjunctivae normal. ENT: Dental pain location of #[id number] and #21 tender with palpation of gum. Tender to left maxillary sinus. Guarding the face. Mucous membranes pink and moist. TMs normal bilaterally. Throat normal. Uvula midline. NECK: Normal AROM. No lymphadenopathy. CHEST: No respiratory distress. Clear to auscultation. HEART: Regular rate and rhythm. No murmur appreciated. SKIN: Warm, dry, no rash. Normal skin turgor. NEURO: No focal deficits. Alert and oriented x3. Gait steady. HENMT: Face images: 1. area of reported pain Course Course Emergency Course: Patient is aware of diagnosis, understands and agrees to treatment plan. A
[2024-03-15 19:54] VITALS: BP 134/76; PULSE 82; RESP 16; TEMP 36.2; O2SAT 99
== END 2024-03-15 20:10 | disposition home or self-care (01) ==
PROVIDERS: Emergency Provider Nurse Practitioner Family; PCP Internal Medicine Gastroenterology
DX: R51.9 Headache, unspecified (principal); J45.909 Unspecified asthma, uncomplicated; E11.43 Type 2 diabetes mellitus with diabetic autonomic (poly)neuropathy; K31.84 Gastroparesis; Z79.4 Long term (current) use of insulin; E78.5 Hyperlipidemia, unspecified; I10 Essential (primary) hypertension; E11.40 Type 2 diabetes mellitus with diabetic neuropathy, unspecified; Z86.16 Personal history of COVID-19; Z86.718 Personal history of other venous thrombosis and embolism
CPT/HCPCS: 99213; G0463

== ENCOUNTER 2024-04-06 14:37 | Emergency (ER) | payer OTHER, SELFPAY ==
--- NOTE | 2024-04-06 14:42 | ED.DENTAL ---
HPI - Dental/Oral General Chief complaint: Upper Respiratory Infection Stated complaint: Sinus/Dental Pain Time Seen by Provider: 04/06/24 14:45 Source: patient Mode of arrival: ambulatory Limitations: no limitations History of Present Illness HPI Narrative: Madhavi is a 53-year-old female patient presenting to the clinic today with complaints left upper dental/sinus pain. She reports that this has been going on for the past few days. Just had a tooth extraction completed 3 days ago. Is having pain over the tooth in into the sinus cavity. States she is blowing out some white nasal drainage and having a lot of pressure. Feels as though her gums are swollen. Denies any fever or chills. Related Data Home Medications Medication Instructions Recorded Confirmed apixaban 5 mg tablet (Eliquis) 5 mg PO DAILY 06/16/20 04/06/24 duloxetine 60 mg capsule,delayed 60 mg PO HS 06/16/20 04/06/24 release losartan 50 mg tablet 50 mg PO DAILY 06/16/20 04/06/24 insulin glargine 100 unit/mL (3 25 unit subcut HS 12/07/20 04/06/24 mL) subcutaneous pen (Basaglar KwikPen U-100 Insulin) pregabalin 150 mg capsule 150 mg PO BID 12/07/20 04/06/24 sitagliptin phosphate 100 mg 100 mg PO DAILY 12/07/20 04/06/24 tablet (Januvia) Allergies Allergy/AdvReac Type Severity Reaction Status Date / Time No Known Allergies Allergy Unknown Verified 04/06/24 14:38 Review of Systems Review of Systems: Pertinent positives per HPI. Patient denies any fever, chills, rash, headache, visual changes, dizziness, shortness of breath, chest pain, palpitations, nausea, vomiting, diarrhea, constipation, abdominal pain, or any urinary issues. [facility] Past Medical History Medical History Adenomatous colon polyp Asthma Chronic anticoagulation COVID-19 Diabetes mellitus DVT (deep venous thrombosis) Epigastric pain Gastroparesis H. pylori infection HLD (hyperlipidemia) HTN (hypertension) Neuropathy Perirectal abscess Perirectal ulcer Pneumonia due to 2019-nCoV Renal abscess Renal cyst Surgical History Surgical History H/O section H/O colonoscopy H/O esophagogastroduodenoscopy History of tonsillectomy Family History Family History Mother Diabetes mellitus Heart disease Acute myocardial infarction Sibling Diabetes mellitus Social History Social History Smoking status: Never smoker Second hand tobacco smoke exposure: Yes Alcohol intake: never Substance use: never Substance use type: does not use Gender identity (if verbalized by the patient): Female Sexual Orientation (if Verbalized by the Patient): Straight or Heterosexual Spiritual care concerns: No Comments At the time of my signature, I reviewed and agree with the nursing past medical, surgical, social, and family history. There is no relevant family history pertinent to the patient complaint. Exam Narrative: General: Well-developed, well nourished, in no apparent distress Head: Normocephalic, atraumatic Eyes: Pupils equally round and reactive to light bilaterally, EOM intact, sclera and conjunctive clear, no discharge, lids normal Ears: TMs intact and clear, ear canals clear, no drainage, grossly hearing normal. Nose: Nares patent, no discharge, moderate inflammation to bilateral nares, left-sided maxillary sinus tenderness Mouth: Oral pharynx without lesions or masses, poor dentition, MMM. Status post tooth extraction to the left upper 1st molar. Redness and swelling to the gums tenderness to palpation over the gum Neck: Supple, trachea midline, no enlargement of anterior or posterior cervical nodes, no thyroid masses or goiter palpable. Cardio: Regular rate and rhythm, s1 and s2 normal, no murmur appreciated. Resp: Clear to ausc
[2024-04-06 14:44] VITALS: BP 132/77; PULSE 81; RESP 16; TEMP 35.7; O2SAT 98
== END 2024-04-06 14:53 | disposition home or self-care (01) ==
PROVIDERS: Emergency Provider Nurse Practitioner Family; PCP Internal Medicine Gastroenterology
DX: J01.90 Acute sinusitis, unspecified (principal); G89.18 Other acute postprocedural pain; J45.909 Unspecified asthma, uncomplicated; E11.40 Type 2 diabetes mellitus with diabetic neuropathy, unspecified; E11.43 Type 2 diabetes mellitus with diabetic autonomic (poly)neuropathy; K31.84 Gastroparesis; Z79.4 Long term (current) use of insulin; Z79.84 Long term (current) use of oral hypoglycemic drugs; Z86.718 Personal history of other venous thrombosis and embolism; Z79.01 Long term (current) use of anticoagulants; Z86.16 Personal history of COVID-19
CPT/HCPCS: 99213; G0463

== ENCOUNTER 2024-07-06 10:48 | Emergency (ER) | payer OTHER, SELFPAY ==
[2024-07-06 10:51] VITALS: BP 166/65; PULSE 62; RESP 18; TEMP 36.4; O2SAT 99
--- NOTE | 2024-07-06 11:02 | ED.DENTAL ---
HPI - Dental/Oral General Chief complaint: Dental/Oral Stated complaint: left side facial swelling Time Seen by Provider: 07/06/24 10:49 History of Present Illness HPI Narrative: 54-year-old female presents to the emergency department for evaluation for left-sided facial swelling. Patient states symptoms started a few days ago. Patient states his a recurrent issue for her. Patient reports symptoms started on left nose and then spread to left face and is primarily in her left ear at this point. Patient does have mild left-sided facial swelling. Patient denies any current dental pain but does have ear pain. Related Data Home Medications Medication Instructions Recorded Confirmed apixaban 5 mg tablet (Eliquis) 5 mg PO DAILY 06/16/20 04/06/24 duloxetine 60 mg capsule,delayed 60 mg PO HS 06/16/20 04/06/24 release losartan 50 mg tablet 50 mg PO DAILY 06/16/20 04/06/24 insulin glargine 100 unit/mL (3 25 unit subcut HS 12/07/20 04/06/24 mL) subcutaneous pen ([employer]ag[employer] KwikPen U-100 Insulin) pregabalin 150 mg capsule 150 mg PO BID 12/07/20 04/06/24 sitagliptin phosphate 100 mg 100 mg PO DAILY 12/07/20 04/06/24 tablet (Januvia) Allergies Allergy/AdvReac Type Severity Reaction Status Date / Time No Known Allergies Allergy Unknown Verified 07/06/24 10:48 Review of Systems Review of Systems: All systems reviewed & are unremarkable except as noted in HPI and below PMFSH Past Medical History Medical History Adenomatous colon polyp Asthma Chronic anticoagulation COVID-19 Diabetes mellitus DVT (deep venous thrombosis) Epigastric pain Gastroparesis H. pylori infection HLD (hyperlipidemia) HTN (hypertension) Neuropathy Perirectal abscess Perirectal ulcer Pneumonia due to 2019-nCoV Renal abscess Renal cyst Surgical History Surgical History H/O section H/O colonoscopy H/O esophagogastroduodenoscopy History of tonsillectomy Family History Family History Mother Diabetes mellitus Heart disease Acute myocardial infarction Sibling Diabetes mellitus Social History Social History Smoking status: Never smoker Second hand tobacco smoke exposure: Yes Alcohol intake: never Substance use: never Substance use type: does not use Gender identity (if verbalized by the patient): Female Sexual Orientation (if Verbalized by the Patient): Straight or Heterosexual Spiritual care concerns: No Exam Narrative: APPEARANCE: Well appearing, no pain, no distress, well-nourished. HEAD: Left-sided facial swelling with no tenderness or evidence facial cellulitis. Patient does have swelling and erythema of her external ear canal on the left, swelling is more consistent with cellulitis rather than classic otitis externa. EYES: PERRLA/EOMI, conjunctivae clear. NOSE: Normal no drainage EARS:TMS clear with good light reflex. THROAT: Pharynx clear, no exudate. NECK: Supple. No adenopathy, no masses. RESPIRATORY: Airway patent, respirations nonlabored. Clear to auscultation bilaterally, no rales, rhonchi, wheezing. CARDIOVASCULAR: Regular rate and rhythm without murmurs rubs or gallops. ABDOMINAL: Soft, nontender, nondistended, normal bowel sounds MUSCULOSKELETAL: Moves all extremities. Strength/ROM intact, No edema, No calf tenderness. NEURO: Alert. Cranial nerves II through XII intact. Good gait. Good coordination SKIN: Warm, dry. Normal Color Course Vital Signs Vital signs: Vital Signs Temperature 97.6 F 07/06/24 10:51 Pulse Rate 62 07/06/24 10:51 Respiratory Rate 18 07/06/24 10:51 Blood Pressure 166/65 H 07/06/24 10:51 Pulse Oximetry 99 07/06/24 10:51 Oxygen Delivery Room Air 07/06/24 10:51 Temperature 97.6 F 07/06/24 10:51 Pulse Rate 88
[2024-07-06] MEDS: CLINDAMYCIN HCL 150 MG CAP 300 MG PO (11:18)
[2024-07-06 11:42] VITALS: BP 122/83; PULSE 88; RESP 18; O2SAT 100
== END 2024-07-06 11:43 | disposition home or self-care (01) ==
PROVIDERS: Emergency Provider Emergency Medicine; PCP Internal Medicine Gastroenterology
DX: L03.211 Cellulitis of face (principal); J45.909 Unspecified asthma, uncomplicated; E11.43 Type 2 diabetes mellitus with diabetic autonomic (poly)neuropathy; K31.84 Gastroparesis; E11.40 Type 2 diabetes mellitus with diabetic neuropathy, unspecified; I10 Essential (primary) hypertension; E78.5 Hyperlipidemia, unspecified; Z86.16 Personal history of COVID-19; Z86.718 Personal history of other venous thrombosis and embolism; Z86.010 Personal history of colon polyps; Z87.01 Personal history of pneumonia (recurrent); Z79.01 Long term (current) use of anticoagulants; Z79.4 Long term (current) use of insulin; Z79.84 Long term (current) use of oral hypoglycemic drugs; Z79.899 Other long term (current) drug therapy
CPT/HCPCS: 99283; A9270

== ENCOUNTER 2024-09-30 06:30 | Observation (INO) | payer OTHER, SELFPAY ==
[2024-09-30] VITALS (19 sets, daily range): BP systolic 110–176; BP diastolic 61–102; PULSE 65–80; RESP 12–20; TEMP 36.4–37.2; O2SAT 92–100; BMI 29.9
--- NOTE | 2024-09-30 | EST_ITS ---
Patient Info Name: Madhavi Stein Age: 54 years : 1970 Gender: Female Ht: 60 in Wt: 160 lbs BSA: 1.78 m2 HR: 64 bpm BP: 142 / 97 mmHg Exam Date: 09/30/2024 1:08 PM Exam Location: Echo Lab Patient Status: Inpatient Admit Date: 09/30/2024 Staff Ordering Physician: Mari Avila MD Attending Provider: Reyes English MD Exercise Technologist: Antonella Hanson [facility] Exercise Physician: Satya Mccrary DO Exam Type: CA stress test treadmill Study Info A treadmill exercise stress test was performed. Summary 1. 1. Negative Donnie exercise stress test for ischemic ST changes by ECG criteria. However, patient achieved 80% MPHR for age group which reduces sensitivity of the test. 2. 2. Reduced functional capacity, achieving 7 METs of workload. 3. 3. Baseline hypertension with hypertensive response to exercise. 4. 4. Appropriate HR response to exercise. 5. 5. Appropriate HR recovery at 1 minute post exercise. 6. 6. No imaging with stress testing. 7. 7. Patient informed of the above results. Protocol: Donnie Stress ECG Details Stage: REST Duration (min): 1 min : 21 sec Speed (mph): 0.0 Grade (%): 0 HR (bpm): 63 SBP (mmHg): 142 DBP (mmHg): 97 METS: --- Stage: REST Duration (min): 8 min : 17 sec Speed (mph): 0.0 Grade (%): 0 HR (bpm): 84 SBP (mmHg): 142 DBP (mmHg): 97 METS: --- Stage: STAGE 1 Duration (min): 1 min : 0 sec Speed (mph): 1.7 Grade (%): 10 HR (bpm): 92 SBP (mmHg): 142 DBP (mmHg): 97 METS: --- Stage: STAGE 1 Duration (min): 2 min : 0 sec Speed (mph): 1.7 Grade (%): 10 HR (bpm): 102 SBP (mmHg): 142 DBP (mmHg): 97 METS: --- Stage: STAGE 1 Duration (min): 3 min : 0 sec Speed (mph): 1.7 Grade (%): 10 HR (bpm): 107 SBP (mmHg): 174 DBP (mmHg): 93 METS: --- Stage: STAGE 2 Duration (min): 1 min : 0 sec Speed (mph): 2.5 Grade (%): 12 HR (bpm): 117 SBP (mmHg): 174 DBP (mmHg): 93 METS: --- Stage: STAGE 2 Duration (min): 2 min : 0 sec Speed (mph): 2.5 Grade (%): 12 HR (bpm): 123 SBP (mmHg): 197 DBP (mmHg): 97 METS: --- Stage: STAGE 2 Duration (min): 3 min : 0 sec Speed (mph): 2.5 Grade (%): 12 HR (bpm): 131 SBP (mmHg): 197 DBP (mmHg): 97 METS: --- Stage: STAGE 3 Duration (min): 1 min : 0 sec Speed (mph): 0.0 Grade (%): 0 HR (bpm): 109 SBP (mmHg): 211 DBP (mmHg): 98 METS: --- Stage: STAGE 3 Duration (min): 1 min : 17 sec Speed (mph): 0.0 Grade (%): 0 HR (bpm): 99 SBP (mmHg): 211 DBP (mmHg): 98 METS: --- Stage: RECOVERY Duration (min): 0 min : 42 sec Speed (mph): 0.0 Grade (%): 0 HR (bpm): 88 SBP (mmHg): 211 DBP (mmHg): 98 METS: --- Stage: RECOVERY Duration (min): 1 min : 42 sec Speed (mph): 0.0 Grade (%): 0 HR (bpm): 77 SBP (mmHg): 211 DBP (mmHg): 98 METS: --- Stage: RECOVERY Duration (min): 2 min : 42 sec Speed (mph): 0.0 Grade (%): 0 HR (bpm): 71 SBP (mmHg): 190 DBP (mmHg): 80 METS: --- Stage: RECOVERY Duration (min): 3 min : 5 sec Speed (mph): 0.0 Grade (%): 0 HR (bpm): 69 SBP (mmHg): 183 DBP (mmHg): 81 METS: --- Rest HR: 84 bpm Peak HR: 135 bpm Rest Sys BP: 142 mmHg Peak Sys BP: 211 mmHg Max Pred HR: 168 bpm % Max Pred HR: 80 % Target HR: 143 bpm Max RPP: 28,485 bpm*mmHg Mims Score: 0 BP Response: Patient exhibited a hypertensive response with stress Termination Reason: Maximal effort/unable to continue Cardiac Symptoms: Shortness of breath Max ST Seg Deviation: -1.50 mm Total Time: 7 min : 18 sec Rest Guevara BP: 97 mmHg Peak Guevara BP: 98 mmHg Angina Score: None Total METS: 7.1 Resting ECG Sinus rhythm, cannot r/o septal infarct, age indeterminate. Stress ECG no ST changes. Arrhythmias None. Report Signatures
--- NOTE | 2024-09-30 | ECHO_ITS ---
Patient Info Name: Madhavi Stein Age: 54 years : 1970 Gender: Female Ht: 60 in Wt: 160 lbs BSA: 1.78 m2 HR: 64 bpm BP: 142 / 97 mmHg Heart Rhythm: Sinus Rhythm Technical Quality: Good Exam Date: 09/30/2024 1:02 PM Exam Location: Echo Lab Patient Status: Inpatient Admit Date: 09/30/2024 Staff Ordering Physician: Satya Mccrary DO Radio Equipment Installer: Antonella Hanson RDCS Attending Provider: Reyes English MD Referring Physician: Hermann BIGGS; Exam Type: CA echo doppler color flow Study Info Indications R07.9 - Chest pain, unspecified Complete two-dimensional, color flow and Doppler transthoracic echocardiogram is performed. Summary 1. Complete two-dimensional, color flow and Doppler transthoracic echocardiogram is performed. 2. Left ventricular chamber dimension is normal. 3. Left ventricular systolic function is normal, estimated at 60-65%. 4. There is mild concentric increased left ventricular wall thickness. 5. The left ventricular diastolic function is grade I diastolic dysfunction. 6. E/e' 23 is elevated. 7. No pulmonary hypertension, estimated pulmonary arterial systolic pressure is 18 mmHg. Left Ventricle E/e' 23 is elevated. Left ventricular chamber dimension is normal. Left ventricular systolic function is normal, estimated at 60-65%. There is mild concentric increased left ventricular wall thickness. The left ventricular diastolic function is grade I diastolic dysfunction. Right Ventricle Right ventricular systolic function is normal and with normal TAPSE 1.8 cm. Right ventricular chamber dimension is normal. Left Atria Left atrial chamber dimension is normal. Right Atria Right atrial chamber dimension is normal. Aortic Valve The aortic valve is trileaflet. There is no aortic valve stenosis. There is no aortic valve regurgitation. Pulmonic Valve There is no pulmonic regurgitation. Mitral Valve There is no mitral valve stenosis. There is no mitral valve regurgitation. Tricuspid Valve There is no tricuspid valve regurgitation. No pulmonary hypertension, estimated pulmonary arterial systolic pressure is 18 mmHg. Pericardium/Pleural There is no pericardial effusion. Inferior Vena Cava Normal inferior vena cava with >50% collapse upon inspiration consistent with normal right atrial pressure, 5 mmHg. Aorta The aortic root size at the sinus of Valsalva is normal. Left Ventricular Outflow Tract Name Value Normal LVOT 2D LVOT Diameter 2.0 cm LVOT Doppler LVOT Peak Gradient 5 mmHg LVOT Mean Gradient 4 mmHg LVOT VTI 28 cm LVOT VTI/AV VTI Ratio 1.0 LVOT Stroke Volume 87 ml LVOT CO 5.8 l/min LVOT CI 3.3 l/min/m2 Pulmonic Valve Name Value Normal RVOT Doppler RVOT Peak Gradient 1 mmHg PV Doppler PV Peak Gradient 3 mmHg Mitral Valve Name Value Normal MV Doppler MV Decel [place] 282 cm/s2 MV PHT 94 ms MV Area (PHT) 2.3 cm2 4.0-5.0 MV Diastolic Function MV E Peak Velocity 91 cm/s MV A Peak Velocity 106 cm/s MV E/A 0.9 MV Decel Time 324 ms MV Annular TDI MV E/e' (Septal) 26.1 <=8.0 MV E/e' (Lateral) 21.8 <=8.0 MV E/e' (Average) 23.9 Tricuspid Valve Name Value Normal TV Regurgitation Doppler TR Peak Velocity 180 cm/s TR Peak Gradient 13 mmHg Estimated PAP/RSVP RA Pressure 5 mmHg <=5 PA Systolic Pressure 18 mmHg <36 RV Systolic Pressure 18 mmHg <36 Aorta Name Value Normal Ascending Aorta Ao Root Diameter (MM) 3.1 cm Ao Root Diam Index (MM) 1.7 cm/m2 Aortic Valve Name Value Normal AV Doppler AV Peak Velocity 133 cm/s AV Peak Gradient 7 mmHg AV Mean Gradient 5 mmHg AV VTI 27 cm AV Area (Cont Eq VTI) 3.2 cm2 >=3.0 AV Area (Cont Eq Aren) 2.7 cm2 AV Regurgitation 2D LVOT Area 3.1 cm2 Ventricles Name Value Normal LV Dimensions 2D/MM IVS Diastolic Thickness (2D) 1.2 cm 0.6-1.0 LVID Diastole (2D) 3.1 cm 3.8-5.2 LVIW Diastolic Thickness (2D) 1.1 cm 0.6-0.9 LVID Systole (2D) 2.1 cm 2.2-3.5 LVOT Diameter 2.0 cm LV Mass (2D Cubed) 109.38 g 67.00-162.00 LV Mass Index (2D Cubed) 61 g/m2 43-95 Relative Wall Thickness (2D) 0.72 LV Fractional Shortening/Ejection Fraction 2D/MM LV Fractional Shortening (2D) 34 % 27-45 LV EF (2D Teicholz) 65 % 54-74 LV Diastolic Volume (4C MOD) 38 ml LV EF (4C MOD) 78 % LV Diastolic Volume (2C MOD) 23 ml LV EF (2C MOD) 72 % LV Diastolic Volume (BP MOD) 30 ml 46-106 LV Diastolic Volume Index (BP MOD) 17 ml/m2 29-61 LV Systolic Volume (BP MOD) 7 ml 14-42 LV Systolic Volume Index (BP MOD) 4 ml/m2 8-24 LV EF (BP MOD) 75 % 54-74 LV Diastolic Length (4C) 6.4 cm LV Systolic Length (4C) 4.7 cm LV Stroke Volume (4C MOD) 30 ml Atria Name Value Normal LA Dimensions LA Dimension (MM) 3.4 cm 2.7-3.8 LA Volume (4C A-L) 23 ml LA Volume (BP A-L) 24 ml RA Dimensions RA Area (4C) 7.0 cm2 <=18.0 Report Signatures
--- NOTE | ~2024-09-30 | XR_ITS ---
Clinical Indication: Chest pain PA and lateral views of the chest: Comparison: 12/23/2023 Findings: The lungs are clear, without evidence of focal consolidation or pleural effusion. Cardiome diastinal silhouette is within normal limits. Bones and soft tissues are unremarkable. Impression: Clear lungs. Reviewed, dictated and finalized at location . Impression: Clear lungs.
--- NOTE | ~2024-09-30 | CT_ITS ---
EXAMINATION: CTA chest abdomen pelvis DATE: 09/30/2024 09:03 INDICATION: Chest pain radiating to the arm, back, and leg. TECHNIQUE: Computed tomographic angiography (CTA) of the chest, abdomen, and pelvis was performed wit h 100 mL Omnipaque-350 intravenous contrast. Automated exposure control and iterative reconstruction technique were employed. The dose-length product was 705.81 mGy-cm. Maximum intensity projection 3D-r econstructions of the aorta and other arteries were constructed by the technologist on a separate wor kstation. COMPARISON: CT abdomen and pelvis 04/27/2023 FINDINGS: CHEST CTA: The lungs demonstrate mild atelectasis. No pleural effusion. The heart size is normal. No pericardial effusion. Thoracic aorta is normal. There is no pulmonary embolus. There is mild chronic anterior we dging of multiple lower thoracic vertebral bodies. There is mild thoracic spondylosis. ABDOMEN AND PELVIS CTA: The liver, gallbladder, spleen, pancreas, adrenal glands, and kidneys are normal. There are no dilate d loops of bowel. The appendix is normal. There are no pathologically enlarged lymph nodes. There is no free intraperitoneal fluid. Abdominal aorta is normal. There is no significant stenosis of celiac axis, superior mesenteric artery, the renal arteries, or inferior mesenteric artery. The bladder is d istended. There is prominent fat in right inguinal canal that may be a hernia. There is mild lumbar s pondylosis. IMPRESSION: 1. Normal aorta. Reviewed, dictated and finalized at location B. IMPRESSION: 1. Normal aorta.
--- NOTE | 2024-09-30 06:33 | ECG_ITS ---
Test Date: 2024-09-30 06:40:08 Measurements Intervals Norris Rate: 71 P: 5 FL: 159 QRS: -25 QRSD: 91 T: 5 QT: 389 QTc: 424 Interpretive Statements SINUS RHYTHM ANTEROSEPTAL INFARCT, AGE INDETERMINATE INFERIOR INFARCT, AGE INDETERMINATE BASELINE ARTIFACT- I, II, III, AVR, AVL, AVF ABNORMAL ECG No previous ECG available for comparison Electronically Signed On 09-30-2024 06:52:29 CDT by Satya Mccrary D.O.
[2024-09-30 06:51] LABS: Basophils Percent Auto 0.7 % (0.2-1.2); Eosinophils Absolute Auto 0.2 K/mm3 (0-0.3); Eosinophils Percent Auto 4.2 % (0-4.4); Hematocrit 43.4 % (37.0-47.0); Hemoglobin 14.8 g/dL (12.0-15.0); Immature Granulocyte Absolute 0.02 K/mm3 (0.00-0.031); Immature Granulocyte Percent A 0.4 % (0-0.5); Lymphocytes Absolute Auto 2.23 K/mm3 (0.9-3.2); Lymphocytes Percent Auto 40.8 % (18.3-44.2); Mean Corpuscular HGB Conc 34.1 g/dl (32-36); Mean Corpuscular Hemoglobin 30.3 pg (26-34); Mean Corpuscular Volume 88.9 fl (80-100); Mean Platelet Volume 11.1 fl (7.4-10.4); Monocytes Absolute Auto 0.4 K/mm3 (0.1-0.6); Monocytes Percent Auto 7.7 % (2.6-8.5); Neutrophils Absolute Auto 2.5 K/mm3 (1.3-6.7); Neutrophils Percent Auto 46.2 % (45.5-73.1); Platelet Count Result 169 k/mm3 (150-375); Red Blood Count 4.88 M/mm3 (4.2-5.4); Red Cell Distribution Width 12.6 % (11.5-14.5); White Blood Count 5.5 K/mm3 (4.5-10.0)
--- NOTE | 2024-09-30 07:02 | ED_ITS ---
HPI - Chest Pain General Chief Complaint: Chest Pain Stated Complaint: chest pain Time Seen by Provider: 09/30/24 07:00 Source: patient Mode of arrival: ambulatory Limitations: no limitations History of Present Illness HPI narrative: Patient presents with midsternal chest pain since 3:00 a.m. this morning. She was sleeping at the time. There are no palliating factors although she states it is worse with movement. She cannot describe the quality of pain only that it hurts. It radiates into her right arm and back and is described as constant. She denies any shortness of breath but it does have a pleuritic quality. No nausea or vomiting. She has also been having pain in her left groin for few days. She initially stated she thought it was a torn muscle. Patient does have a history of a DVT in the left lower extremity. This was diagnosed approximately 30 years ago she is chronically on anticoagulation although she states she has been missing doses of her Eliquis occasionally. The chest pain has never occurred like this before. She denies any cardiac history and does not follow with a telegraph service clerk. She denies any paresthesias in her left lower extremity. She notes that she gets diaphoretic only when she eats. She was coughing earlier this week and felt worse after it. She denies any fever. She has a history of hypertension but is not on medication for this as she states it is only been borderline in intermittently appreciated. She has hyperlipidemia. She is an insulin-dependent diabetic. Nonsmoker. Her mother had a myocardial infarction around the age of 65 and her maternal grandmother also had a myocardial infarction. No prior CO, TIA, or CVA. Related Data Home Medications Medication Instructions Recorded Confirmed apixaban 5 mg tablet (Eliquis) 5 mg PO DAILY 06/16/20 09/30/24 duloxetine 60 mg capsule,delayed 60 mg PO HS 06/16/20 09/30/24 release insulin glargine 100 unit/mL (3 25 unit subcut HS 12/07/20 09/30/24 mL) subcutaneous pen (Basaglar KwikPen U-100 Insulin) pregabalin 150 mg capsule 150 mg PO BID 12/07/20 09/30/24 dapagliflozin propanediol 10 mg 10 mg PO DAILY 09/30/24 09/30/24 tablet (Farxiga) rosuvastatin 40 mg tablet 40 mg PO QHS 09/30/24 09/30/24 Allergies Allergy/AdvReac Type Severity Reaction Status Date / Time No Known Allergies Allergy Unknown Verified 09/30/24 11:39 [facility] Past Medical History Medical History Adenomatous colon polyp Asthma Chronic anticoagulation COVID-19 Diabetes mellitus DVT (deep venous thrombosis) approx 3-4 years ago Epigastric pain Gastroparesis H. pylori infection HLD (hyperlipidemia) HTN (hypertension) Neuropathy Perirectal abscess Perirectal ulcer Pneumonia due to 2019-nCoV Renal abscess Renal cyst Surgical History Surgical History H/O section H/O colonoscopy H/O esophagogastroduodenoscopy History of tonsillectomy Family History Family History Mother Diabetes mellitus Heart disease Acute myocardial infarction Sibling Diabetes mellitus Social History Social History Social History: Patient is and lives with her two children. 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 She is a full code. Smoking status: Never smoker Second hand tobacco smoke exposure: Yes Alcohol intake: never Substance use: never Substance use type: does not use Do You Feel Safe in your Home?: Yes Lack of Transportation: No Lack of Food: Never True Current Housing: I Have Housing Concerned About Future Housing: No Difficulty Paying Gas/Electric Bills: No Difficulty Paying for Meds: No Currently Unemployed: No Education: Decline to Answer Difficulty w/ Childcare or Family Care: No Gender identity (if verbalized by the patient): Female Sexual Orientation (if Verbalized by the Patient): Straight or Heterosexual Spiritual care concerns: No Exam Narrative: GENERAL: Well-appearing, well-nourished, and in no acute distress. HEAD: Normocephalic, atraumatic. EYES: Non injected, non icteric ENT: Nares clear, no rhinorrhea or epistaxis. NECK: Supple. CHEST: Speaking in full sentences. No respiratory distress. HEART: Regular rate and rhythm. Symmetric radial pulses +2. ABDOMEN: Soft, nondistended. EXTREMITIES: Normal range of motion. SKIN: Warm, dry, no rash. NEURO: No focal deficits. Alert and oriented x3. PSYCH: Normal mood and affect. Course Vital Signs Vital signs: Vital Signs Temperature 98.1 F 09/30/24 06:32 Pulse Rate 75 09/30/24 06:32 Respiratory Rate 15 09/30/24 06:32 Blood Pressure 176/102 H 09/30/24 06:32 Pulse Oximetry 99 09/30/24 06:32 Oxygen Delivery Room Air 09/30/24 06:32 Temperature 98.9 F 09/30/24 19:55 Pulse Rate 68 09/30/24 20:00 Respiratory Rate 14 09/30/24 20:00 Blood Pressure 110/61 09/30/24 19:55 Pulse Oximetry 92 09/30/24 20:00 Oxygen Delivery Room Air 09/30/24 20:00 MDM - Chest Pain MDM Narrative Medical decision making narrative: Patient presents with midsternal chest pain radiating to her right arm and back described as constant. No cardiac history. She also has left groin pain. History of DVT in this extremity and has been missing some doses of her Eliquis. In the emergency department she is afebrile with vital signs notable for hypertension. Patient has hyperglycemia without anion gap or acidosis. Sodium corrects ( pseudo hyponatremia) in the setting of hyperglycemia. HEART SCORE History 2 highly suspicious 1 moderately suspicious 0 slightly suspicious History score [address] depression/elevation not due to LBBB, LVH, or digoxin [address] depression but LBBB, LVH, nonspecific repolarization changes 0 normal ECG score 0 Age 2 >/= 65 1 45-64 0 <45 Age score 1 Risk factors (HTN, hypercholesterolemia, DM, obesity with BMI >30, current smok er or cessation </=3mo), positive fam hx with parent or sibling with CVD before age 65, atherosclerotic disease (prior CO, PCI/CABG, CVA/TIA, or peripheral arterial disease) 2 >/= 3 risk factors or history of atherosclerotic dz 1 - 1-2 risk factors 0 no known risk factors Risk factor score 2 (HTN, HLD, DM, obesity, fam hx) Initial Troponin 2 >3 times normal limit 1 1-3 times normal limit 0 less than or equal to normal limit Troponin score 0 Total HEART Score 4 with second negative troponin. Discussed observation admission based on this with patient and she would like to get this worked up especially because she does not have a telegraph service clerk to follow up with and is therefore unknown how quickly she could get the workup performed in the outpatient setting. Discussed with hospitalist who recommends discussing with Cardiology. Discussed with Dr Mccrary who recommends ordering the stress test (NM not necessary given EKG) immediately from the ED so it can be performed GINNY. Given this will require obs admission as not able to be performed while ED patient, proceeded with order for observation admission. IMU status given HEART score as per protocol. Discussed with stress solid state tester to confirm details and timing. Differential Diagnosis Differential diagnosis: Likely stable angina, unstable angina pectoris, atypical chest pain, st elevation myocardial infarction, costochondritis, chest pain, biliary colic and other ( DVT/ PE, aortic dissection; acute viral syndrome) Lab Data Attestation: I reviewed the patient's lab results. 09/30/24 06:42 09/30/24 06:42 Labs: Lab Results 09/30/24 09/30/24 09/30/24 Range/Units 06:42 07:43 09:16 WBC 5.5 (4.5-10.0) K/mm3 RBC 4.88 (4.2-5.4) M/mm3 Hgb 14.8 D (12.0-15.0) g/dL Hct 43.4 (37.0-47.0) % MCV 88.9 (80-100) fl MCH 30.3 (26-34) pg MCHC 34.1 (32-36) g/dl RDW 12.6 (11.5-14.5) % Plt Count 169 (150-375) k/mm3 MPV 11.1 H (7.4-10.4) fl Immature Gran % (Auto) 0.4 (0-0.5) % Neut % (Auto) 46.2 (45.5-73.1) % Lymph % (Auto) 40.8 (18.3-44.2) % [place] % (Auto) 7.7 (2.6-8.5) % Eos % (Auto) 4.2 (0-4.4) % Baso % (Auto) 0.7 (0.2-1.2) % Lymph # (Auto) 2.23 (0.9-3.2) K/mm3 [place] # (Auto) 0.4 (0.1-0.6) K/mm3 Eos # (Auto) 0.2 (0-0.3) K/mm3 Baso # (Auto) 0.0 (0.0-0.1) K/mm3 Abs Immat Gran (auto) 0.02 (0.00-0.031) K/mm3 Absolute Neuts (auto) 2.5 (1.3-6.7) K/mm3 Absolute Nucleated RBC 0.000 (0.0-0.012) K/mm3 Nucleated RBC % 0.0 (0.0-0.2) % PT 15.7 H (11.1-14.7) Seconds INR 1.2 APTT 28.9 (22.3-36.8) Seconds D-Dimer 0.38 (<0.48) ug/mL Sodium 135 L (137-145) mmol/L Potassium 3.9 (3.4-5.0) mmol/L Chloride 97 L (98-107) mmol/L Carbon Dioxide 26 (22-30) mmol/L Anion Gap 12 (4-12) mmol/L BUN 15 D (7-17) mg/dL Creatinine 0.60 L (0.7-1.0) mg/dL Estim Creat Clear Calc 83 ml/min Estimated GFR > 60 (59 - ) Glucose 374 H (65-110) mg/dL Hemoglobin A1c 12.0 H (<5.7) % Calcium 9.2 (8.4-10.2) mg/dL Total Bilirubin 0.5 (0.2-1.3) mg/dL AST 31 (14-36) U/L ALT 23 (6-35) U/L Alkaline Phosphatase 62 (38-126) U/L Troponin I < 0.012 < 0.012 (0.000-0.034) ng/mL C-Reactive Protein < 0.5 (<1.0) mg/dL NT-Pro-B Natriuret Pep 61 (19.9-100) pg/mL Total Protein 8.0 (6.3-8.2) g/dL Albumin 4.4 (3.5-5.1) g/dL Lipase 51 (23-300) U/L Influenza A (RT-PCR) Negative (Negative) Influenza B (RT-PCR) Negative (Negative) RSV (RT-PCR) Negative (Negative) SARS-CoV-2 RNA (RT-PCR) Negative (Negative) Imaging Data Radiologist's impression: Impressions Chest X-Ray 09/30/24 06:56 Impression: Clear lungs. Chest/Abdomen/Pelvis CTA 09/30/24 09:04 IMPRESSION: 1. Normal aorta. ECG Data EKG #1: Attestation: I personally reviewed and interpreted this ECG as follows: ECG completion date: 09/30/24 ECG completion time: 06:40 Interpretation: normal sinus rhythm at a rate of 71 beats per minute. SD interval 159. QRS 91. QT/ QTC 389/412. Poor R-wave progression across the precordial leads. T-wave inversion in lead 3 but upright and normal in contiguous inferior leads 2 and AVF. No other T-wave inversions. EKG #2: Attestation: I personally reviewed and interpreted this ECG as follows: ECG completion date: 09/30/24 ECG completion time: 09:26 Interpretation: Normal sinus rhythm at a rate of 65 beats per minute. SD interval 174. QRS 89. QT/ QTC 416/427. T-wave flattening in 3 but contiguous inferior leads appropriate. No other T-wave inversions. Discharge Plan Discharge Clinical Impression: Chest pain, Hyperglycemia due to diabetes mellitus, Pseudohyponatremia Patient Disposition: Still a Patient Condition: Stable
[2024-09-30 07:03] LABS: INR 1.2; Partial Thromboplastin Time 28.9 Seconds (22.3-36.8); Prothrombin Time 15.7 Seconds (11.1-14.7)
[2024-09-30 07:06] LABS: Alanine Aminotransferase 23 U/L (6-35); Albumin Level 4.4 g/dL (3.5-5.1); Alkaline Phosphatase 62 U/L (38-126); Anion Gap 12 mmol/L (4-12); Aspartate Amino Transferase 31 U/L (14-36); Bilirubin,Total 0.5 mg/dL (0.2-1.3); Blood Urea Nitrogen 15 mg/dL (7-17); Calcium 9.2 mg/dL (8.4-10.2); Carbon Dioxide 26 mmol/L (22-30); Chloride 97 mmol/L (98-107); Estimated CRCL calculation 83 ml/min; Estimated Glomerular Filt Rate > 60; Glucose 374 mg/dL (65-110); Lipase 51 U/L (23-300); Potassium 3.9 mmol/L (3.4-5.0); Sodium 135 mmol/L (137-145)
[2024-09-30 07:16] LABS: Troponin I < 0.012 ng/mL (0.000-0.034)
[2024-09-30] MEDS: ASPIRIN 81 MG CHEWABLE TABLET 324 MG PO (07:30)
[2024-09-30] MEDS: MORPHINE SULFATE (*CRX) 4 MG/ML INJ IV PUSH (08:13)
[2024-09-30 08:25] LABS: D Dimer 0.38 ug/mL (<0.48)
[2024-09-30 08:36] LABS: Influenza A QL RT-PCR Negative (Negative); Influenza B QL RT-PCR Negative (Negative); RSV RNA, RT-PCR Negative (Negative); SARS-CoV-2 RNA PCR Negative (Negative)
--- NOTE | 2024-09-30 09:01 | ECG_ITS ---
Test Date: 2024-09-30 09:26:27 Measurements Intervals [place] Rate: 65 P: 14 [place]: 174 QRS: -7 QRSD: 89 T: 17 QT: 416 QTc: 433 Interpretive Statements SINUS RHYTHM ANTEROSEPTAL MYOCARDIAL INFARCTION , OF INDETERMINATE AGE INFERIOR INFARCT, AGE INDETERMINATE BASELINE ARTIFACT- I, III, AVR, AVL, AVF ABNORMAL ECG Compared to ECG 09/30/2024 06:40:08 No significant changes Electronically Signed On 09-30-2024 10:27:00 CDT by Satya Mccrary D.O.
[2024-09-30] MEDS: ACETAMINOPHEN 500 MG TABLET 1000 MG PO (09:35)
[2024-09-30 09:44] LABS: Troponin I < 0.012 ng/mL (0.000-0.034)
[2024-09-30 09:51] LABS: NT Pro B Type Natriuretic Pept 61 pg/mL (19.9-100)
--- NOTE | 2024-09-30 11:02 | PM.IMHP ---
H&P: HPI History of Present Illness Date/Time: 09/30/24 11:02 Chief Complaint: Chest and groin pain Narrative: CT shows There is no significant stenosis of celiac axis, superior mesenteric artery, the renal arteries, or inferior mesenteric artery. The bladder is distended. There is prominent fat in right inguinal canal that may be a hernia. Large stool burden. Patient is hyperglycemic at 374, respiratory panel is negative. EKG shows anterior septal infarct of indeterminate age [facility] Past Medical History Medical History (Updated 09/30/24 @ 12:15 by Satya Mccrary DO) Adenomatous colon polyp Asthma Chronic anticoagulation COVID-19 Diabetes mellitus DVT (deep venous thrombosis) approx 1993 Epigastric pain Gastroparesis H. pylori infection HLD (hyperlipidemia) HTN (hypertension) Neuropathy Perirectal abscess Perirectal ulcer Pneumonia due to 2019-nCoV Renal abscess Renal cyst Surgical History Surgical History (Updated 04/07/24 @ 00:01 by Xiomara Taylor) H/O section H/O colonoscopy H/O esophagogastroduodenoscopy History of tonsillectomy Family History Family History Mother Diabetes mellitus Heart disease Acute myocardial infarction Sibling Diabetes mellitus Social History Social History Smoking status: Never smoker Second hand tobacco smoke exposure: Yes Alcohol intake: never Substance use: never Substance use type: does not use Do You Feel Safe in your Home?: Yes Lack of Transportation: No Lack of Food: Never True Current Housing: I Have Housing Concerned About Future Housing: No Difficulty Paying Gas/Electric Bills: No Difficulty Paying for Meds: No Currently Unemployed: No Education: Decline to Answer Difficulty w/ Childcare or Family Care: No Gender identity (if verbalized by the patient): Female Sexual Orientation (if Verbalized by the Patient): Straight or Heterosexual Spiritual care concerns: No Meds Home Medications and Allergies Home Medications Medication Instructions Recorded Confirmed Type apixaban 5 mg tablet (Eliquis) 5 mg PO DAILY 06/16/20 09/30/24 History duloxetine 60 mg capsule,delayed 60 mg PO HS 06/16/20 09/30/24 History release albuterol sulfate 90 mcg/actuation 4 puff inhalation QID PRN 11/28/20 09/30/24 Rx aerosol inhaler shortness of breath or wheezing #8 grams insulin glargine 100 unit/mL (3 25 unit subcut HS 12/07/20 09/30/24 History mL) subcutaneous pen (Basaglar KwikPen U-100 Insulin) pregabalin 150 mg capsule 150 mg PO BID 12/07/20 09/30/24 History fluticasone propionate 50 2 spray intranasal DAILY 30 days 04/06/24 09/30/24 Rx mcg/actuation nasal #16 grams spray,suspension (24 Hour Allergy Relief) dapagliflozin propanediol 10 mg 10 mg PO DAILY 09/30/24 09/30/24 History tablet (Farxiga) rosuvastatin 40 mg tablet 40 mg PO QHS 09/30/24 09/30/24 History Allergies Allergy/AdvReac Type Severity Reaction Status Date / Time No Known Allergies Allergy Unknown Verified 09/30/24 11:39 Vital Signs Vital Signs - 24 hr 09/30/24 06:32 09/30/24 06:47 09/30/24 07:34 Temperature 98.1 F Pulse Rate 75 71 Respiratory Rate 15 Blood Pressure 176/102 H Pulse Oximetry 99 98 Oxygen Delivery Room Air Room Air 09/30/24 07:34 09/30/24 08:01 09/30/24 09:01 Temperature 98.0 F Pulse Rate 71 67 70 Respiratory Rate 20 15 16 Blood Pressure 140/88 123/61 160/65 H Pulse Oximetry 98 94 98 Oxygen Delivery 09/30/24 10:39 Temperature 98.0 F Pulse Rate 72 Respiratory Rate 16 Blood Pressure 140/87 Pulse Oximetry 98 Oxygen Delivery H&P: Results Labs Labs: Short CBC 09/30/24 Range/Units 06:42 WBC 5.5 (4.5-10.0) K/mm3 Hgb 14.8 D (12.0-15.0) g/dL Hct 43.4 (37.0-47.0) % Plt Count 169 (150-375) k/mm3 BMP 09/30/24 06:42 Sodium 135 L Potassium 3.9 Chloride 97 L Carbon Dioxide 26 BUN 15 D Creatinine 0.60 L Glucose 374 H Calcium 9.2 Cardiac Enzymes 09/30/24 09/30/24 Range/Units 06:42 09:16 Troponin I < 0.012 < 0.012 (0.000-0.034) ng/mL Liver Function 09/30/24 Range/Units 06:42 Total Bilirubin 0.5 (0.2-1.3) mg/dL AST 31 (14-36) U/L ALT 23 (6-35) U/L Alkaline Phosphatase 62 (38-126) U/L Albumin 4.4 (3.5-5.1) g/dL
--- NOTE | 2024-09-30 11:31 | PC.NURSE ---
This RN received report from ED RN.
--- NOTE | 2024-09-30 11:40 | ADMGEN ---
This patient, Madhavi Stein, was admitted to IMU Room 200-01 @ 1140. Patient/family oriented to hospital policies and general routines including ID bracelet, bed and alarms, visiting hours, pain management, procedures, bathroom and other care routines, personal items, smoking policy, room service/diet, and visiting hours. Information on how to activate the Rapid Response Team has been discussed. Patient/Family are encouraged to report perceived risks to care and to ask questions if they do not understand what they are told or what they should do.
--- NOTE | 2024-09-30 11:49 | ECG_ITS ---
Test Date: 2024-09-30 12:48:55 Measurements Intervals [place] Rate: 62 P: 5 [place]: 166 QRS: -25 QRSD: 94 T: 14 QT: 422 QTc: 430 Interpretive Statements SINUS RHYTHM INFERIOR MYOCARDIAL INFARCTION , PROBABLY OLD ANTEROSEPTAL MYOCARDIAL INFARCTION , OF INDETERMINATE AGE ABNORMAL ECG Compared to ECG 09/30/2024 09:26:27 No significant changes Electronically Signed On 09-30-2024 13:36:00 CDT by Satya Mccrary D.O.
[2024-09-30] MEDS: MORPHINE SULFATE (*CRX) 2 MG/ML INJ IV PUSH (11:56)
--- NOTE | 2024-09-30 12:11 | P.CONCA_ITS ---
Assessment and Plan Assessment and plan (1) Chest pain: Code(s): R07.9 - Chest pain, unspecified Status: Acute Assessment and Plan: Probably musculoskeletal as it is reproducible by palpation. She is r/o for MA by serial troponin and EKG. Obtain stress test and echo. If OK, then may d/c home and f/u with her regular cardiology with [facility]. (2) Hypertension: Qualifiers: Hypertension type: unspecified Qualified Code(s): I10 - Essential (primary) hypertension Code(s): I10 - Essential (primary) hypertension Status: Chronic Assessment and Plan: Stable. (3) Diabetes mellitus: Qualifiers: Diabetes mellitus complication detail: with other skin ulcer Diabetes mellitus complication status: with skin complications Diabetes mellitus skilled nursing insulin use: with skilled nursing use Diabetes mellitus type: type 2 Qualified Code(s): E11.622 - Type 2 diabetes mellitus with other skin ulcer; Z79.4 - assisted (current) use of insulin Code(s): E11.9 - Type 2 diabetes mellitus without complications Status: Chronic (4) HLD (hyperlipidemia): Code(s): E78.5 - Hyperlipidemia, unspecified Status: Acute Assessment and Plan: On Rosuvastatin. History of Present Illness History of Present Illness Consult date/time: 09/30/24 12:11 Reason For Visit: chest pain Narrative: 54 yr old woman presents to ER with chest pain. She has a history of DM, hypertension, dyslipidemia, left leg DVT. 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 Reports chest pain woke her up from sleep at 3 am and is constant since up to 8/10 in pain radiating to her back and right arm. It is reproducible with palpation of chest. She can walk a few blocks without any problems but has recently has left thigh pain from possible muscle strain per patient. Denies orthopnea, PND, edema, dizziness, palpitations. Review of Systems Review of Systems: All systems reviewed & are unremarkable except as noted in HPI and below Constitutional: Constitutional: Reports as per HPI, Denies chills and Denies fever(s) Cardiovascular: Cardiovascular: Reports as per HPI, Reports chest pain and Denies irregular heart rhythm Respiratory: Respiratory: Reports as per HPI and Denies dyspnea Gastrointestinal: Gastrointestinal: Reports as per HPI and Denies abdominal pain Genitourinary: Genitourinary: Reports as per HPI and Denies dysuria Musculoskeletal: Musculoskeletal: Reports as per HPI Neurologic: Reports as per HPI, Denies dizziness and Denies syncope [facility] Past Medical History Medical History (Updated 09/30/24 @ 12:15 by Satya Mccrary DO) Adenomatous colon polyp Asthma Chronic anticoagulation COVID-19 Diabetes mellitus DVT (deep venous thrombosis) approx 1993 Epigastric pain Gastroparesis H. pylori infection HLD (hyperlipidemia) HTN (hypertension) Neuropathy Perirectal abscess Perirectal ulcer Pneumonia due to 2019-nCoV Renal abscess Renal cyst Surgical History Surgical History (Updated 04/07/24 @ 00:01 by Xiomara Taylor) H/O section H/O colonoscopy H/O esophagogastroduodenoscopy History of tonsillectomy Family History Family History Mother Diabetes mellitus Heart disease Acute myocardial infarction Sibling Diabetes mellitus Social History Social History Smoking status: Never smoker Second hand tobacco smoke exposure: Yes Alcohol intake: never Substance use: never Substance use type: does not use Gender identity (if verbalized by the patient): Female Sexual Orientation (if Verbalized by the Patient): Straight or Heterosexual Spiritual care concerns: No Meds Home Medications and Allergies Home Medications Medication Instructions Recorded Confirmed Type apixaban 5 mg tablet (Eliquis) 5 mg PO DAILY 06/16/20 09/30/24 History duloxetine 60 mg capsule,delayed 60 mg PO HS 06/16/20 09/30/24 History release albuterol sulfate 90 mcg/actuation 4 puff inhalation QID PRN 11/28/20 09/30/24 Rx aerosol inhaler shortness of breath or wheezing #8 grams insulin glargine 100 unit/mL (3 25 unit subcut HS 12/07/20 09/30/24 History mL) subcutaneous pen (Basaglar KwikPen U-100 Insulin) pregabalin 150 mg capsule 150 mg PO BID 12/07/20 09/30/24 History fluticasone propionate 50 2 spray intranasal DAILY 30 days 04/06/24 09/30/24 Rx mcg/actuation nasal #16 grams spray,suspension (24 Hour Allergy Relief) dapagliflozin propanediol 10 mg 10 mg PO DAILY 09/30/24 09/30/24 History tablet (Farxiga) rosuvastatin 40 mg tablet 40 mg PO QHS 09/30/24 09/30/24 History Allergies Allergy/AdvReac Type Severity Reaction Status Date / Time No Known Allergies Allergy Unknown Verified 09/30/24 11:39 Vital Signs Vital Signs - 24 hr 09/30/24 06:32 09/30/24 06:47 09/30/24 07:34 Temperature 98.1 F Pulse Rate 75 71 Respiratory Rate 15 Blood Pressure 176/102 H Pulse Oximetry 99 98 Oxygen Delivery Room Air Room Air 09/30/24 07:34 09/30/24 08:01 09/30/24 09:01 Temperature 98.0 F Pulse Rate 71 67 70 Respiratory Rate 20 15 16 Blood Pressure 140/88 123/61 160/65 H Pulse Oximetry 98 94 98 Oxygen Delivery 09/30/24 10:39 09/30/24 11:35 09/30/24 11:46 Temperature 98.0 F 97.9 F 98.4 F Pulse Rate 72 77 69 Respiratory Rate 16 16 12 Blood Pressure 140/87 134/78 151/98 H Pulse Oximetry 98 98 97 Oxygen Delivery Exam Const: General: cooperative, healthy appearing and comfortable Resp: Auscultation: clear to auscultation bilaterally, no crackles, no rales, no rhonchi and no wheezes Cardio: Rate: regular rate Rhythm: regular rhythm Heart sounds: no mur murs GI: GI Palp: No abdominal tenderness and Yes Soft to palpation Neuro: General: oriented to person, oriented to place and oriented to time Extrem: Right lower extremity: no edema Left lower extremity: no edema Results Labs and Meds 09/30/24 06:42 09/30/24 06:42 Lab results: Cardiac Enzymes 09/30/24 09/30/24 Range/Units 06:42 09:16 AST 31 (14-36) U/L Troponin I < 0.012 < 0.012 (0.000-0.034) ng/mL Coagulation 09/30/24 Range/Units 06:42 PT 15.7 H (11.1-14.7) Seconds APTT 28.9 (22.3-36.8) Seconds CBC 09/30/24 Range/Units 06:42 WBC 5.5 (4.5-10.0) K/mm3 RBC 4.88 (4.2-5.4) M/mm3 Hgb 14.8 D (12.0-15.0) g/dL Hct 43.4 (37.0-47.0) % Plt Count 169 (150-375) k/mm3 Lymph # (Auto) 2.23 (0.9-3.2) K/mm3 [place] # (Auto) 0.4 (0.1-0.6) K/mm3 Eos # (Auto) 0.2 (0-0.3) K/mm3 Baso # (Auto) 0.0 (0.0-0.1) K/mm3 Comprehensive Metabolic Panel 09/30/24 Range/Units 06:42 Sodium 135 L (137-145) mmol/L Potassium 3.9 (3.4-5.0) mmol/L Chloride 97 L (98-107) mmol/L Carbon Dioxide 26 (22-30) mmol/L BUN 15 D (7-17) mg/dL Creatinine 0.60 L (0.7-1.0) mg/dL Glucose 374 H (65-110) mg/dL Calcium 9.2 (8.4-10.2) mg/dL AST 31 (14-36) U/L ALT 23 (6-35) U/L Alkaline Phosphatase 62 (38-126) U/L Total Protein 8.0 (6.3-8.2) g/dL Albumin 4.4 (3.5-5.1) g/dL Patient Weight 09/30/24 23:59 Weight 72.7 kg
--- NOTE | 2024-09-30 12:55 | PC.NURSE ---
Pt left the floor for cardiac stress test and ECHO
--- NOTE | 2024-09-30 13:21 | PM.IMHP ---
H&P: HPI History of Present Illness Date/Time: 09/30/24 13:21 Chief Complaint: Chest pain Narrative: This is a 54-year-old female with past medical history significant for asthma, diabetes, HLD, hypertension, and left leg DVT on Eliquis who presented to the emergency room complaints of chest pain. The patient provides the following history. Last night the patient was awoken from sleep with mid epigastric, mid sternal chest pain which she describes as heaviness that traveled into her back and right arm. She also reports lumbar back pain that travels the right side and through her left groin. Chest pain was worsened with deep inspiration. She reports she has experience mid epigastric pain like this before but never this severe. She reports that this chest discomfort, lower back pain, and left groin pain all started this morning. 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 She does not recall an incident where she would have lifted to cause muscle strain. She also reports a headache for the last few days as well as a dry cough. She denies any recent sick contacts. In the emergency room labs showed a normal white count of 5.5, hemoglobin 14.8, PTT elevated 15.7, sodium 135, chloride 97, creatinine 0.60, and glucose of 374. Troponins were negative. BNP was 61. EKG showed a sinus rhythm of rate is 62 with it concern for an old inferior myocardial infarction as well as age-indeterminate anterior septal myocardial infarction. CTA abdomen and pelvis showed a normal aorta with mild chronic anterior wedging of multiple lower thoracic vertebral bodies and mild thoracic spondylosis as well as lumbar spondylosis. Vitals on arrival showed a temperature of 98.1?, pulse 75, respiration 15, pulse ox 99% on room air, and blood pressure 176/102. The patient received aspirin 325 mg, morphine 4 mg, and 1 g of Tylenol. Cardiology was consulted and recommended stress test and echocardiogram. She was admitted in this setting for rule out of acute coronary syndrome. Review of Systems Review of Systems: All systems reviewed & are unremarkable except as noted in HPI and below [facility] Past Medical History Medical History Adenomatous colon polyp Asthma Chronic anticoagulation COVID-19 Diabetes mellitus DVT (deep venous thrombosis) approx 3-4 years ago Epigastric pain Gastroparesis H. pylori infection HLD (hyperlipidemia) HTN (hypertension) Neuropathy Perirectal abscess Perirectal ulcer Pneumonia due to 2019-nCoV Renal abscess Renal cyst Surgical History Surgical History H/O section H/O colonoscopy H/O esophagogastroduodenoscopy History of tonsillectomy Family History Family History Mother Diabetes mellitus Heart disease Acute myocardial infarction Sibling Diabetes mellitus Social History Social History Social History: Patient is and lives with her two children. 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 She is a full code. Smoking status: Never smoker Second hand tobacco smoke exposure: Yes Alcohol intake: never Substance use: never Substance use type: does not use Do You Feel Safe in your Home?: Yes Lack of Transportation: No Lack of Food: Never True Current Housing: I Have Housing Concerned About Future Housing: No Difficulty Paying Gas/Electric Bills: No Difficulty Paying for Meds: No Currently Unemployed: No Education: Decline to Answer Difficulty w/ Childcare or Family Care: No Gender identity (if verbalized by the patient): Female Sexual Orientation (if Verbalized by the Patient): Straight or Heterosexual Spiritual care concerns: No Meds Home Medications and Allergies Home Medications Medication Instructions Recorded Confirmed Type apixaban 5 mg tablet (Eliquis) 5 mg PO DAILY 06/16/20 09/30/24 History duloxetine 60 mg capsule,delayed 60 mg PO HS 06/16/20 09/30/24 History release albuterol sulfate 90 mcg/actuation 4 puff inhalation QID PRN 11/28/20 09/30/24 Rx aerosol inhaler shortness of breath or wheezing #8 grams insulin glargine 100 unit/mL (3 25 unit subcut HS 12/07/20 09/30/24 History mL) subcutaneous pen (Basaglar KwikPen U-100 Insulin) pregabalin 150 mg capsule 150 mg PO BID 12/07/20 09/30/24 History fluticasone propionate 50 2 spray intranasal DAILY 30 days 04/06/24 09/30/24 Rx mcg/actuation nasal #16 grams spray,suspension (24 Hour Allergy Relief) dapagliflozin propanediol 10 mg 10 mg PO DAILY 09/30/24 09/30/24 History tablet (Farxiga) rosuvastatin 40 mg tablet 40 mg PO QHS 09/30/24 09/30/24 History Allergies Allergy/AdvReac Type Severity Reaction Status Date / Time No Known Allergies Allergy Unknown Verified 09/30/24 11:39 Vital Signs Vital Signs - 24 hr 09/30/24 06:32 09/30/24 06:47 09/30/24 07:34 Temperature 98.1 F Pulse Rate 75 71 Respiratory Rate 15 Blood Pressure 176/102 H Pulse Oximetry 99 98 Oxygen Delivery Room Air Room Air 09/30/24 07:34 09/30/24 08:01 09/30/24 09:01 Temperature 98.0 F Pulse Rate 71 67 70 Respiratory Rate 20 15 16 Blood Pressure 140/88 123/61 160/65 H Pulse Oximetry 98 94 98 Oxygen Delivery 09/30/24 10:39 09/30/24 11:35 09/30/24 11:46 Temperature 98.0 F 97.9 F 98.4 F Pulse Rate 72 77 69 Respiratory Rate 16 16 12 Blood Pressure 140/87 134/78 151/98 H Pulse Oximetry 98 98 97 Oxygen Delivery 09/30/24 12:00 09/30/24 12:00 Temperature Pulse Rate 65 Respiratory Rate Blood Pressure Pulse Oximetry Oxygen Delivery Room Air Exam Narrative: General: appears comfortable, in no acute distress Respiratory: breathing is unlabored with even chest rise/fall, lungs are clear without wheezing, rhonchi, and crackles Cardiovascular: Rate and rhythm regular, normal s1s2, no murmur Abdomen: Soft, round, non-tender, active bowel sounds. Mildly tender to left lower groin. Extremities: No cyanosis, edema, clubbing. Pulses 2/2. Dependent swelling. Neuro: A&O x 4 Skin: Warm, dry, intact H&P: Results Labs Labs: Short CBC 09/30/24 Range/Units 06:42 WBC 5.5 (4.5-10.0) K/mm3 Hgb 14.8 D (12.0-15.0) g/dL Hct 43.4 (37.0-47.0) % Plt Count 169 (150-375) k/mm3 [facility] 09/30/24 06:42 Sodium 135 L Potassium 3.9 Chloride 97 L Carbon Dioxide 26 BUN 15 D Creatinine 0.60 L Glucose 374 H Calcium 9.2 Cardiac Enzymes 09/30/24 09/30/24 Range/Units 06:42 09:16 Troponin I < 0.012 < 0.012 (0.000-0.034) ng/mL Liver Function 09/30/24 Range/Units 06:42 Total Bilirubin 0.5 (0.2-1.3) mg/dL AST 31 (14-36) U/L ALT 23 (6-35) U/L Alkaline Phosphatase 62 (38-126) U/L Albumin 4.4 (3.5-5.1) g/dL Assessment and Plan Assessment and plan (1) Chest pain: Code(s): R07.9 - Chest pain, unspecified Status: Acute Assessment and Plan: Patient presents with complaints of chest pain radiating to her back and right arm. Pain is reproducible with palpation of the chest. Initial troponin negative. Serial troponin ordered Initial EKG shows sinus rhythm rate of 71 with anterior septal and inferior infarcts of age indeterminate. Serial EKGs are ordered. Patient received aspirin 324 mg and 4 mg of IV morphine. Stress test and echocardiogram ordered Cardiology has been consulted and recommendations are appreciated (2) Hyperglycemia due to diabetes mellitus: Code(s): E11.65 - Type 2 diabetes mellitus with hyperglycemia Status: Acute Assessment and Plan: Last A1c on file shows 12%. Patient is on Farxiga 10 mg daily, insulin glargine 25 units HS Repeat hemoglobin A1c Lantus decreased by 10% given controlled diet SSI moderate scale holding oral diabetic medications (3) Low back pain: Code(s): M54.50 - Low back pain, unspecified Status: Inactive Assessment and Plan: Reports of lower back pain with left groin pain which sounds like muscle strain. CT shows thoracic and lumbar spondylosis. Lidocaine patch x 2 to lower back Trial Flexeril 5 mg, Tylenol as needed Quality VTE Prophylaxis VTE prophylaxis: pharmacologic ordered Hospitalist [facility] Advance Care Plan I have confirmed that the patient's Advanced Care Plan is present, code status is documented, or surrogate decision maker is listed in patient medical record.: Yes Medication Reconciliation I have utilized all available resources to obtain, update and review the patients current medications (includes all prescriptions, OTC, herbals, cannabis, and nutritional supplements).: Yes
[2024-09-30 13:31] LABS: Troponin I < 0.012 ng/mL (0.000-0.034)
--- NOTE | 2024-09-30 14:27 | PC.NURSE ---
Pt returned to IMU room 200
[2024-09-30 15:32] LABS: CRP < 0.5 mg/dL (<1.0)
[2024-09-30] MEDS: CYCLOBENZAPRINE HCL 5 MG TABLET PO (16:38)
[2024-09-30 16:39] LABS: Glucose Point of Care 211 mg/dl (65-105)
[2024-09-30] MEDS: ACETAMINOPHEN/BUTALBITAL/CAFFEINE 325-50-40 MG TABLET (FIORICET) 1 TAB PO (16:39)
[2024-09-30] MEDS: PREGABALIN (*CRX) 75 MG CAPSULE 150 MG PO (16:39)
[2024-09-30] MEDS: LIDOCAINE 5% PATCH 2 PATCH TRANSDERM (16:39)
[2024-09-30] MEDS: INSULIN ASPART (*BKC) 100 UNITS/ML SUB-Q (16:45)
[2024-09-30] MEDS: DULoxetine HCL 60 MG CAPSULE.DR PO (20:21)
[2024-09-30] MEDS: ROSUVASTATIN 20 MG TABLET 40 MG PO (20:21)
[2024-09-30] MEDS: APIXABAN 5 MG TABLET PO (20:21)
[2024-09-30 20:22] LABS: Glucose Point of Care 225 mg/dl (65-105)
[2024-09-30] MEDS: INSULIN GLARGINE (*BKC) 100 UNITS/ML 21 UNITS SUB-Q (20:40)
[2024-10-01] VITALS (10 sets, daily range): BP systolic 103–135; BP diastolic 65–71; PULSE 62–88; RESP 14–16; TEMP 36.7–37.1; O2SAT 98–100
[2024-10-01 08:04] LABS: Glucose Point of Care 178 mg/dl (65-105)
[2024-10-01] MEDS: PREGABALIN (*CRX) 75 MG CAPSULE 150 MG PO (08:28)
[2024-10-01] MEDS: APIXABAN 5 MG TABLET PO (08:29)
[2024-10-01] MEDS: ACETAMINOPHEN/BUTALBITAL/CAFFEINE 325-50-40 MG TABLET (FIORICET) 1 TAB PO ×2 (08:29→12:02)
[2024-10-01] MEDS: FLUTICASONE PROPIONATE 0.05% NA SPR 16 GM BTL (*BKC) 2 SPRAY NASAL (08:29)
[2024-10-01] MEDS: LIDOCAINE 5% PATCH 2 PATCH TRANSDERM (08:29)
--- NOTE | 2024-10-01 09:14 | PM.PNCARD ---
Progress Note: A&P Assessment and Plan (1) Chest pain: Code(s): R07.9 - Chest pain, unspecified Status: Acute Assessment and Plan: Probably musculoskeletal as it is reproducible by palpation. She is r/o for NH by serial troponin and EKG. 09/30/24 Stress test is negative. Echo with EF 60-65%, grade I diastolic dysfunction (E/e' 23). May d/c home from cardiology standpoint and f/u with her regular cardiology with [facility]. (2) Hypertension: Qualifiers: Hypertension type: unspecified Qualified Code(s): I10 - Essential (primary) hypertension Code(s): I10 - Essential (primary) hypertension Status: Chronic Assessment and Plan: Stable. 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 Subjective Date/time seen: 10/01/24 09:14 Interval history: No more chest pain, no sob. Exam Const: General: cooperative, healthy appearing and comfortable Orientation/consciousness: oriented to person, oriented to place and oriented to time Resp: Auscultation: clear to auscultation bilaterally, no crackles, no rales, no rhonchi and no wheezes Cardio: Rate: regular rate Rhythm: regular rhythm Heart sounds: no murmurs Neuro: General: oriented to person, oriented to place and oriented to time Extrem: Right lower extremity: no edema Left lower extremity: no edema Objective Data Vital Signs Vital Signs: Vital Signs - 24 hr 09/30/24 10:39 09/30/24 11:35 09/30/24 11:46 Temperature 98.0 F 97.9 F 98.4 F Pulse Rate 72 77 69 Respiratory Rate 16 16 12 Blood Pressure 140/87 134/78 151/98 H Pulse Oximetry 98 98 97 Oxygen Delivery Fraction of Inspired Oxygen 09/30/24 12:00 11/01/24 12:00 09/30/24 14:00 Temperature Pulse Rate 65 66 Respiratory Rate Blood Pressure Pulse Oximetry Oxygen Delivery Room Air Fraction of Inspired Oxygen 09/30/24 14:39 09/30/24 14:40 09/30/24 14:42 Temperature 97.5 F L Pulse Rate 67 72 72 Respiratory Rate 14 16 18 Blood Pressure 154/81 H 144/72 H 142/76 H Pulse Oximetry 100 98 97 Oxygen Delivery Fraction of Inspired Oxygen 09/30/24 14:43 09/30/24 16:00 09/30/24 16:00 Temperature 98.4 F 98.5 F Pulse Rate 80 71 65 Respiratory Rate 18 14 Blood Pressure 114/79 147/90 H Pulse Oximetry 100 95 Oxygen Delivery Fraction of Inspired Oxygen 09/30/24 16:00 09/30/24 18:00 09/30/24 19:55 Temperature 98.9 F Pulse Rate 76 68 Respiratory Rate 14 Blood Pressure 110/61 Pulse Oximetry 92 Oxygen Delivery Room Air Fraction of Inspired Oxygen 09/30/24 20:00 10/01/24 00:09 10/01/24 00:00 Temperature 98.8 F Pulse Rate 68 66 66 Respiratory Rate 14 14 14 Blood Pressure 103/67 Pulse Oximetry 92 100 100 Oxygen Delivery Room Air Room Air Fraction of Inspired Oxygen 09/30/24 20:00 09/30/24 22:00 10/01/24 00:00 Temperature Pulse Rate 70 69 67 Respiratory Rate Blood Pressure Pulse Oximetry Oxygen Delivery Fraction of Inspired Oxygen 10/01/24 02:00 10/01/24 03:53 10/01/24 04:00 Temperature 98.1 F Pulse Rate 66 63 63 Respiratory Rate 14 14 Blood Pressure 117/71 Pulse Oximetry 100 100 Oxygen Delivery Room Air Fraction of Inspired Oxygen 10/01/24 04:00 10/01/24 05:42 10/01/24 07:36 Temperature 98.2 F Pulse Rate 63 62 88 Respiratory Rate 16 Blood Pressure 135/65 Pulse Oximetry 98 Oxygen Delivery Fraction of Inspired Oxygen 10/01/24 08:49 Temperature Pulse Rate Respiratory Rate Blood Pressure Pulse Oximetry 99 Oxygen Delivery Room Air Fraction of Inspired Oxygen 21 Intake/Output Intake/Output: Intake & Output 09/28/24 09/29/24 09/30/24 10/01/24 23:59 23:59 23:59 23:59 Intake Total 240 790 Output Total 950 Balance 240 -160 Meds/Results Medications: Active Medications Generic Name Dose Route Start Last Admin Trade Name Freq PRN Reason Stop Dose Admin Acetaminophen 650 mg 09/30/24 10:53 Acetaminophen 325 Mg Tablet PO Q4H PRN Mild Pain (1-3) or Fever Acetaminophen/Butalbital/Caffeine 1 tab 09/30/24 14:42 10/01/24 08:29 Acetaminophen/Butalbital/Caffeine 325-50-40 Mg Tablet (Fioricet) PO 1 tab Q4H PRN Administration headache Albuterol 4 puff 09/30/24 13:49 Albuterol Sulfate (*Sp) Aerosol 1 Puff INHALATION Q6HRT PRN shortness of breath or wheezing Apixaban 5 mg 09/30/24 21:00 10/01/24 08:29 Apixaban 5 Mg Tablet PO 5 mg Q12HR MARTIN Administration Dextrose 12.5 gm 09/30/24 10:53 Dextrose 50% 25 Gm/50 Ml Syringe IV PUSH PRN PRN Hypoglycemia Protocol Dextrose 12.5 gm 09/30/24 13:46 Dextrose 50% 25 Gm/50 Ml Syringe IV PUSH PRN PRN Hypoglycemia Protocol Duloxetine HCl 60 mg 09/30/24 21:00 09/30/24 20:21 Duloxetine Hcl 60 Mg Capsule.Dr PO 60 mg HS MARTIN Administration Fluticasone Propionate 2 spray 10/01/24 09:00 10/01/24 08:29 Fluticasone Propionate 0.05% Na Spr 16 Gm Btl (*Bkc) NASAL 2 spray DAILY MARTIN Administration Glucagon 1 mg 09/30/24 10:53 Glucagon For Inj 1 Mg Vial IM PRN PRN Hypoglycemia Protocol Glucagon 1 mg 09/30/24 13:46 Glucagon For Inj 1 Mg Vial IM PRN PRN Hypoglycemia Protocol Glucose 15 gm 09/30/24 10:53 Glucose Oral Gel 15 Gm Of Glucse In 37.5 Gm Tube PO PRN PRN Hypoglycemia Protocol Glucose 15 gm 09/30/24 13:46 Glucose Oral Gel 15 Gm Of Glucse In 37.5 Gm Tube PO PRN PRN Hypoglycemia Protocol Dextrose 1,000 mls @ 100 mls/hr 09/30/24 10:53 Dextrose 5% 1,000 Ml IVPB PRN PRN Hypoglycemia Protocol Dextrose 1,000 mls @ 100 mls/hr 09/30/24 13:46 Dextrose 5% 1,000 Ml IVPB PRN PRN Hypoglycemia Protocol Insulin Aspart 3 - 6 units 09/30/24 17:00 10/01/24 08:27 Insulin Aspart (*Bkc) 100 Units/Ml SUB-Q Not Given TIDWM [facility] Protocol Insulin Glargine 21 units 09/30/24 21:00 09/30/24 20:40 Insulin Glargine (*Bkc) 100 Units/Ml 0.3 units/kg (21 units) 21 units SUB-Q Administration HS MARTIN Lidocaine 2 patch 09/30/24 15:30 10/01/24 08:29 Lidocaine 5% Patch TRANSDERM 2 patch DAILY MARTIN Administration Ondansetron HCl 4 mg 09/30/24 10:53 Ondansetron Inj 4 Mg/2 Ml Vial IV PUSH Q4H PRN Nausea Perflutren Lipid Microsphere 0 ml 09/30/24 11:44 Perflutren Lipid Microspheres 1.5 Ml Vial Diluted To 10 Ml Total Volume IV PUSH 10/03/24 11:44 ONCE PRN adequate visualization Protocol Pregabalin 150 mg 09/30/24 17:00 10/01/24 08:28 Pregabalin (*Crx) 75 Mg Capsule PO 150 mg BID MARTIN Administration Rosuvastatin Calcium 40 mg 09/30/24 21:00 09/30/24 20:21 Rosuvastatin 20 Mg Tablet PO 40 mg QHS MARTIN Administration Radiology Results: ITS Impressions Chest X-Ray 09/30/24 06:56 Impression: Clear lungs. Chest/Abdomen/Pelvis CTA 09/30/24 09:04 IMPRESSION: 1. Normal aorta. Labs Labs: Laboratory Results - last 24 hr 09/30/24 09/30/24 09/30/24 06:42 09:16 12:54 POC Capillary Glucose Hemoglobin A1c 12.0 H Troponin I < 0.012 < 0.012 C-Reactive Protein < 0.5 NT-Pro-B Natriuret Pep 61 09/30/24 09/30/24 10/01/24 16:27 19:51 07:35 POC Capillary Glucose 211 H 225 H 178 H Hemoglobin A1c Troponin I C-Reactive Protein NT-Pro-B Natriuret Pep
--- NOTE | 2024-10-01 10:08 | P.DS_ITS ---
DS: Admitting Diagnosis Discharge Date 09/30 Admitting Diagnosis chest pain DS: Discharge Diagnosis Discharge Diagnosis (1) Chest pain: Code(s): R07.9 - Chest pain, unspecified Status: Acute Assessment and Plan: Patient presents with complaints of chest pain radiating to her back and right arm. Pain is reproducible with palpation of the chest. * Initial troponin negative. Serial troponin ordered * Initial EKG shows sinus rhythm rate of 71 with anterior septal and inferior infarcts of age indeterminate. Serial EKGs are ordered. * Patient received aspirin 324 mg and 4 mg of IV morphine. * Stress test and echocardiogram ordered * Cardiology has been consulted and recommendations are appreciated (2) Hyperglycemia due to diabetes mellitus: Code(s): E11.65 - Type 2 diabetes mellitus with hyperglycemia Status: Acute Assessment and Plan: Last A1c on file shows 12%. Patient is on Farxiga 10 mg daily, insulin glargine 25 units HS * Repeat hemoglobin A1c * Lantus decreased by 10% given controlled diet * SSI moderate scale * holding oral diabetic medications (3) Low back pain: Code(s): M54.50 - Low back pain, unspecified Status: Inactive Assessment and Plan: Reports of lower back pain with left groin pain which sounds like muscle strain. CT shows thoracic and lumbar spondylosis. * Lidocaine patch x 2 to lower back * Trial Flexeril 5 mg, Tylenol as needed DS: Summary Hospital Course Reason for hospitalization: chest pain rule out Hospital Course: This is a 54-year-old female with past medical history significant for asthma, diabetes, HLD, hypertension, and left leg DVT on Eliquis who presented to the emergency room complaints of chest pain. The patient provides the following history. Last night the patient was awoken from sleep with mid epigastric, mid sternal chest pain which she describes as heaviness that traveled into her back and right arm. She also reports lumbar back pain that travels the right side and through her left groin. Chest pain was worsened with deep inspiration. She reports she has experience mid epigastric pain like this before but never this severe. She reports that this chest discomfort, lower back pain, and left groin pain all started this morning. 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 She does not recall an incident where she would have lifted to cause muscle strain. She also reports a headache for the last few days as well as a dry cough. She denies any recent sick contacts. In the emergency room labs showed a normal white count of 5.5, hemoglobin 14.8, PTT elevated 15.7, sodium 135, chloride 97, creatinine 0.60, and glucose of 374. Troponins were negative. BNP was 61. EKG showed a sinus rhythm of rate is 62 with it concern for an old inferior myocardial infarction as well as age- indeterminate anterior septal myocardial infarction. CTA abdomen and pelvis showed a normal aorta with mild chronic anterior wedging of multiple lower thoracic vertebral bodies and mild thoracic spondylosis as well as lumbar spondylosis. Vitals on arrival showed a temperature of 98.1?, pulse 75, respiration 15, pulse ox 99% on room air, and blood pressure 176/102. The patient received aspirin 325 mg, morphine 4 mg, and 1 g of Tylenol. Cardiology was consulted and recommended stress test and echocardiogram. She was admitted in this setting for rule out of acute coronary syndrome. cardiology was consulted and the patient underwent a stress test with echocardiogram. Stress test was negative for ACS. Echocardiogram showed preserved LV systolic function and grade 1 diastolic dysfunction. Fioricet gi kayy for her migraine which improved. Flexeril was given for her lumbar back pain and groin pain which also resolved. cardiology was okay with discharge from their standpoint. 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 she was also instructed to follow-up with her primary care provider given this hospitalization. On day of discharge her labs were reviewed and vitals were stable. She was able to discharge home in stable condition. She had some concerns about her right shoulder reporting a chronic issue with inability to raise her arm above her head. Symptoms were concerning for possible rotator cuff injury. Patient was given orthopedic consult to schedule an outpatient follow-up. Time Spent with Patient Time attestation: Total time spent providing and/or coordinating discharge services: 70 Exam Narrative: General: appears comfortable, in no acute distress Respiratory: breathing is unlabored with even chest rise/fall, lungs are clear without wheezing, rhonchi, and crackles Cardiovascular: Rate and rhythm regular, normal s1s2, no murmur Abdomen: Soft, round, non-tender, active bowel sounds. Mildly tender to left lower groin. Extremities: No cyanosis, edema, clubbing. Pulses 2/2. Dependent swelling. Neuro: A&O x 4 Skin: Warm, dry, intact DS: Data Data Completed and Pending Labs on day of discharge: Labs from last 24 hours 10/01/24 09/30/24 09/30/24 07:35 19:51 16:27 POC Capillary Glucose 178 H 225 H 211 H Hemoglobin A1c Troponin I C-Reactive Protein 09/30/24 09/30/24 12:54 06:42 POC Capillary Glucose Hemoglobin A1c 12.0 H Troponin I < 0.012 C-Reactive Protein < 0.5 Discharge Plan Discharge Attending physician on discharge: Theodore Verdin Consulting providers: Satya Mccrary Discharging Clinician: Chantell Campos Anticipated Discharge Date/Time: 10/01/24 10:00 Patient Disposition: Home, Self-Care Activity: march shower Diet: heart healthy and diabetic Discharge Instructions: You were admitted with complaints of chest pain. Cardiac workup was completed. Stress test was negative. Cardiology would like you to follow-up with your technician support association in the next 1-2 weeks. In regards to her back pain and groin pain it sounds like this is musculoskeletal in nature. You have thoracic and lumbar spondylosis seen on your CT. You can take Tylenol as needed for pain. You can take small doses of ibuprofen (600 mg 3 times a day) but not chronically given your concurrent use of Eliquis. Please monitor for her signs and symptoms of bleeding particularly GI bleeding with black or red stool. You can follow up with orthopedics as an outpatient for your suspected shoulder injury. Please monitor for recurrent chest pain, shortness a breath, vision changes, or worsening headache. Make slow position changes to keep your blood pressure from dropping. Patient Instructions: Antibiotic Form, Apixaban (By mouth), Acute Low Back Pain (ED), Chest Wall Pain (ED) Stand Alone Forms: General Discharge Information, Work/School Release IP Follow-up/Referrals: Noel Gomez MD [Physician] - Angus,Juanito Boucher MD [Primary Care Provider] - Discharge Medications: New qyrhvvqxwl-waalollnwqzpa-ndhx 50-325-40 mg Tablet 1 tablet PO Q4H PRN (Reason: headache) Qty: 10 0RF lidocaine [Lidoderm] 5 % Adhesive Patch,Medicated 2 patch transdermal DAILY Qty: 30 0RF Rx Instructions: apply to lower back cyclobenzaprine 5 mg tablet 5 mg PO TID PRN (Reason: muscle spasm) Qty: 20 0RF Continued duloxetine 60 mg capsule,delayed release(DR/EC) 60 mg PO HS Eliquis 5 mg tablet 5 mg PO DAILY fluticasone propionate [24 Hour Allergy Relief] 50 mcg/actuation spray,suspension 2 spray intranasal DAILY 30 Days Qty: 16 0RF Rx Instructions: administer into each nostril insulin glargine [Basaglar KwikPen U-100 Insulin] 100 unit/mL (3 mL) insulin pen 25 unit SUBCUT HS pregabalin 150 mg capsule 150 mg PO BID rosuvastatin 40 mg tablet 40 mg PO QHS dapagliflozin propanediol [Farxiga] 10 mg tablet 10 mg PO DAILY albuterol sulfate 90 mcg/actuation HFA aerosol inhaler 4 puff INHALATION QID PRN (Reason: shortness of breath or wheezing) Qty: 8 0RF Date of admission: 09/30/24 10:53 Primary Care Provider: AngusJuanito Admitting Provider: Reyes English Attending physician on admission: Reyes English Condition: Improved Quality VTE Prophylaxis VTE prophylaxis: pharmacologic ordered
[2024-10-01 11:50] LABS: Glucose Point of Care 168 mg/dl (65-105)
== END 2024-10-01 12:08 | disposition home or self-care (01) ==
LOC: ANHED 07:34 → ANHIMU 12:31
PROVIDERS: Emergency Medicine; Nurse Practitioner Acute Care; Admitting Provider Internal Medicine; Emergency Provider Student in an Organized Health Care Education/Training Program; PCP Internal Medicine Gastroenterology; Visit Provider Internal Medicine
DX: R07.9 Chest pain, unspecified (principal); I10 Essential (primary) hypertension; E11.65 Type 2 diabetes mellitus with hyperglycemia; R10.30 Lower abdominal pain, unspecified; M54.50 Low back pain, unspecified; E11.622 Type 2 diabetes mellitus with other skin ulcer; E11.40 Type 2 diabetes mellitus with diabetic neuropathy, unspecified; E11.43 Type 2 diabetes mellitus with diabetic autonomic (poly)neuropathy; K31.84 Gastroparesis; E78.5 Hyperlipidemia, unspecified; J45.909 Unspecified asthma, uncomplicated; Z86.718 Personal history of other venous thrombosis and embolism; Z79.01 Long term (current) use of anticoagulants; Z20.822 Contact with and (suspected) exposure to COVID-19; Z86.16 Personal history of COVID-19; Z79.4 Long term (current) use of insulin; Z79.51 Long term (current) use of inhaled steroids; Z79.84 Long term (current) use of oral hypoglycemic drugs; Z79.899 Other long term (current) drug therapy
CPT/HCPCS: 36415; 71046; 71275; 74174; 80053; 82948; 83036; 83690; 83880; 84484; 85025; 85380; 85610; 85730; 86140; 87637; 93005; 93017; 93306; 96374; 96376; 99285; A9270; G0378; G0379; J1815; J2270; Q9967

== ENCOUNTER 2025-02-10 13:26 | Emergency (ER) | payer OTHER, SELFPAY ==
--- NOTE | 2025-02-10 13:28 | ED_ITS ---
HPI - Headache General Chief Complaint: Headache Stated Complaint: Headache Time Seen by Provider: 02/10/25 13:27 Source: patient Mode of arrival: ambulatory Limitations: no limitations History of Present Illness HPI Narrative: Madhavi is a 54-year-old female patient presenting to the clinic today with complaints of headache and muscle soreness and the bilateral shoulders. She reports symptoms have been going on for 3 days. Feels as though there is a knot in her right trapezius muscle. Feels as though there is a band around her head. Currently rates her pain 8/10. Does states she feels lightheaded at times with some associated nausea. No photosensitivity. Related Data Home Medications ?Medication ?Instructions ?Recorded ?Confirmed ?Last Taken ?Type apixaban 5 mg tablet (Eliquis) 5 mg PO DAILY 06/16/20 09/30/24 09/29/24 21:00 History duloxetine 60 mg capsule,delayed 60 mg PO HS 06/16/20 09/30/24 09/29/24 21:00 History release insulin glargine 100 unit/mL (3 25 unit subcut HS 12/07/20 09/30/24 09/29/24 21:00 History mL) subcutaneous pen (Basaglar KwikPen U-100 Insulin) pregabalin 150 mg capsule 150 mg PO BID 12/07/20 09/30/24 09/29/24 21:00 History dapagliflozin propanediol 10 mg 10 mg PO DAILY 09/30/24 09/30/24 09/29/24 17:00 History tablet (Farxiga) rosuvastatin 40 mg tablet 40 mg PO QHS 09/30/24 09/30/24 09/29/24 21:00 History Allergies Allergy/AdvReac Type Severity Reaction Status Date / Time No Known Allergies Allergy Unknown Verified 02/10/25 13:29 Review of Systems Review of Systems: Pertinent positives per HPI. Patient denies any fever, chills, rash, visual c hanges, dizziness, cough, shortness of breath, chest pain, palpitations, nausea, vomiting, diarrhea, constipation, abdominal pain, or any urinary issues. PMFSH Past Medical History Medical History Adenomatous colon polyp Asthma Chronic anticoagulation COVID-19 Diabetes mellitus DVT (deep venous thrombosis) approx 3-4 years ago Epigastric pain Gastroparesis H. pylori infection HLD (hyperlipidemia) HTN (hypertension) Neuropathy Perirectal abscess Perirectal ulcer Pneumonia due to 2019-nCoV Renal abscess Renal cyst Surgical History Surgical History H/O colonoscopy H/O esophagogastroduodenoscopy H/O section History of tonsillectomy Family History Family History Mother Diabetes mellitus Heart disease Acute myocardial infarction Sibling Diabetes mellitus Social History Social History Social History: Patient is and lives with her two children. 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 She is a full code. Smoking status: Never smoker Second hand tobacco smoke exposure: Yes Alcohol intake: never Substance use: never Substance use type: does not use Do You Feel Safe in your Home?: Yes Lack of Transportation: No Lack of Food: Never True Current Housing: I Have Housing Concerned About Future Housing: No Difficulty Paying Gas/Electric Bills: No Difficulty Paying for Meds: No Currently Unemployed: No Education: Decline to Answer Difficulty w/ Childcare or Family Care: No Gender identity (if verbalized by the patient): Female Sexual Orientation (if Verbalized by the Patient): Straight or Heterosexual Spiritual care concerns: No Comments At the time of my signature, I reviewed and agree with the nursing past medical, surgical, social, and family history. There is no relevant family history pertinent to the patient complaint. Exam Narrative: General: Well-developed, well nourished, in no apparent distress Head: Normocephalic, atraumatic Eyes: Pupils equally round and reactive to light bilaterally, EOM intact, sclera and conjunctive clear, no discharge, lids normal Ears: TMs intact and clear, ear canals clear, no drainage, grossly hearing normal. Nose: Nares patent, no discharge, no inflammation, no sinus tenderness. Mouth: Oropharynx without lesions or masses, good dentition, MMM. Tongue midline, even rise and fall of uvula Neck: Supple, trachea midline, no enlargement of anterior or posterior cervical nodes, no thyroid masses or goiter palpable. Cardio: Regular rate and rhythm, s1 and s2 normal, no murmur appreciated. Resp: Clear to auscultation bilaterally anteriorly and posteriorly, no rhonchi, rales, wheezing or rubs Musculoskeletal: No deformity, tender to palpation over the trapezius musculature bilaterally worse on the right than the left, grossly normal range of motion, muscle strength strong and equal, peripheral pulse strong, no edema, no cyanosis, normal gait and station Neuro: Alert and oriented x4 with normal speech, no focal deficits, cranial nerves I through XII intact, muscle strength 5 out of 5, sensation intact bilaterally, negative Romberg test Course Course Emergency Course: Portions of this record may have been created with voice recognition software. Level of Care: Express Care Visit Vital Signs Vital signs: Vital signs reviewed MDM - Headache MDM Narrative Medical decision making narrative: At the time of visit patient is resting comfortably on the exam table. Patient appears to be nontoxic. Plan: I suspect patient has a acute tension headache. Prescription for Medrol Dosepak and Flexeril was sent to the pharmacy. Supportive measures were discussed with the patient and they voiced understanding discharge instructions and agrees to treatment plan. Return precautions reviewed Differential Diagnosis Differential diagnosis: Likely migraine, tension headache, subarachnoid hemorrhage, headache, meningitis and sinusitis Discharge Plan Discharge Clinical Impression: Acute tension headache Patient Disposition: Home, Self-Care Condition: Stable Instructions: Antibiotic Form, Acute Headache (ED) Additional Instructions: Take any prescription medication only as prescribed-cyclobenzaprine and Medrol Dosepak Keep a tight control on your blood sugar while you taking the steroids. Be mindful of sedation precautions given to you if taking a muscle relaxer. May use heat or ice to the affected area Consider massage or chiropractor adjustment if this was discussed with provider May use blue emu, lidocaine patches, or asper cream to affected area- do not apply heat or ice directly over cream- can cause burn. Complete appropriate neck stretching exercises. Follow up with your PCP in 3-5 days if symptom persist. Patient Language: Yemeni Prescriptions: New methylprednisolone [Medrol (Jose)] 4 mg tablets,dose pack See Rx Instructions PO .COMPLEX Qty: 21 0RF Rx Instructions: orally per package directions cyclobenzaprine 10 mg tablet 10 mg PO Q8H PRN (Reason: muscle spasm) 7 Days Qty: 21 0RF No Action duloxetine 60 mg capsule,delayed release(DR/EC) 60 mg PO HS Eliquis 5 mg tablet 5 mg PO DAILY fluticasone propionate [24 Hour Allergy Relief] 50 mcg/actuation spray ,suspension 2 spray intranasal DAILY 30 Days Qty: 16 0RF Rx Instructions: administer into each nostril insulin glargine [Basaglar KwikPen U-100 Insulin] 100 unit/mL (3 mL) insulin pen 25 unit SUBCUT HS pregabalin 150 mg capsule 150 mg PO BID rosuvastatin 40 mg tablet 40 mg PO QHS dapagliflozin propanediol [Farxiga] 10 mg tablet 10 mg PO DAILY valsfdkaai-msuhpqxfyqhmn-eoac 50-325-40 mg Tablet 1 tablet PO Q4H PRN (Reason: headache) Qty: 10 0RF lidocaine [Lidoderm] 5 % Adhesive Patch,Medicated 2 patch transdermal DAILY Qty: 30 0RF Rx Instructions: apply to lower back cyclobenzaprine 5 mg tablet 5 mg PO TID PRN (Reason: muscle spasm) Qty: 20 0RF albuterol sulfate 90 mcg/actuation HFA aerosol inhaler 4 puff INHALATION QID PRN (Reason: shortness of breath or wheezing) Qty: 8 0RF Follow-up/Referrals: Franklyn Greco DO [Primary Care Provider] - Time of Disposition: 13:51 Quality NIHSS Nursing Documentation ED NIHSS nursing documentation: reviewed/agree
[2025-02-10 13:35] VITALS: BP 133/73; PULSE 69; RESP 18; TEMP 36.2; O2SAT 98
== END 2025-02-10 14:00 | disposition home or self-care (01) ==
PROVIDERS: Emergency Provider Nurse Practitioner Family; PCP Emergency Medicine
DX: G44.209 Tension-type headache, unspecified, not intractable (principal); J45.909 Unspecified asthma, uncomplicated; E78.5 Hyperlipidemia, unspecified; I10 Essential (primary) hypertension; E11.40 Type 2 diabetes mellitus with diabetic neuropathy, unspecified; E11.43 Type 2 diabetes mellitus with diabetic autonomic (poly)neuropathy; K31.84 Gastroparesis; Z79.4 Long term (current) use of insulin; Z86.16 Personal history of COVID-19; Z86.718 Personal history of other venous thrombosis and embolism; Z79.01 Long term (current) use of anticoagulants
CPT/HCPCS: 99213; G0463

== ENCOUNTER 2025-03-08 13:37 | Emergency (ER) | payer OTHER, SELFPAY ==
--- NOTE | ~2025-03-08 | XR_ITS ---
EXAM/PROCEDURE: XR chest 2V - 03/08/2025 14:50 CDT HISTORY: 54 years old Female with URI sx, SOB x few days, Hx of asthma TECHNIQUE: Two view(s) of the chest. COMPARISON: None available. FINDINGS: LUNGS/ PLEURA: No focal consolidation. No appreciable pneumothorax or large pleural effusion. HEART/ MEDIASTINUM: Heart appears normal in size. BONES: No acute osseous abnormality. OTHER: Visualized upper abdomen is unremarkable. IMPRESSION: No acute process. Reviewed, dictated and finalized at location A. IMPRESSION: No acute process.
[2025-03-08 13:48] VITALS: BP 149/97; PULSE 102; RESP 20; TEMP 36.4; O2SAT 97
--- OUTSIDE RECORDS SUMMARY | 2025-03-08 15:08 | XMS_ITS | Clinical Summary ---
Author Organization [facility] Address [address] [facility] [address] [place] [address] Phone Care Team Providers Care Billet Examiner Name Role Phone Mike Victor Primary Care Provider [phone] Allergies No known active allergies Medications Bismuth 262 MG Chewable Tablet Take 3 tablets four times a day for 10 days 120 Tab 9 Active Additional Information Patient not taking.Reported on 08/08/2019 METFORMIN HCL PO Take by mouth. Activ e gabapentin (NEURONTIN) 300 MG Capsule TK 1 C PO QD HS 0 9 Active hydrocortisone (ANUSOL-HC) 2.5 % Cream JESSICA RECTALLY D 0 9 Active BD PEN NEEDLE KASIE U/F 32G X 4 MM Misc U QD UTD 11 9 Active losartan (COZAAR) 50 MG Tablet 0 9 Active metroNIDAZOLE (FLAGYL) 500 MG Tablet TK 1 T PO BID FOR 14 DAYS 0 9 Active polyethylene glycol (GLYCOLAX) Powder DISSOLVE ONE CAPFUL IN 8 OZ OF WATER AND DRINK D 0 9 Active omeprazole (PRILOSEC) 20 MG CAPSULE DELAYED RELEASE 6 9 Active DULERA 200-5 MCG/ACT Aerosol INL 2 PFS PO BID 6 07/17/20 1 9 Active BASAGLAR KWIKPEN 100 UNIT/ML Solution Pen-injector INJ 22 UNITS SC QD 0 9 Active ondansetron (ZOFRAN-ODT) 4 MG TABLET DISPERSIBLE Take 1 Tab by mouth every 8 hours as needed for Nausea - 1st line. 10 Tab 1 9 Active Additional Information Patient not taking.Reported on 09/21/2019 albuterol (PROVENTIL, VENTOLIN) (2.5 MG/3ML) 0.083% Nebulizer Soln albuterol sulfate 2.5 mg/3 mL (0.083 %) solution for nebulization Active albuterol 108 (90 Base) MCG/ACT Aerosol Solution INL 2 PFS PO TID PRN 5 9 Active metoclopramide (REGLAN) 5 MG Tablet Take 1 Tab by mouth 4 times daily (before meals and nightly). 360 Tab 3 9 Active lactulose (CHRONULAC) 10 GM/15ML Solution Take 30 mL by mouth 2 times daily. 473 mL 3 9 Active famotidine (PEPCID) 40 MG Tablet TAKE 1 TABLET BY MOUTH TWICE DAILY 60 Tab 3 9 Active Family History Medical History Relation Name Comments No Known Problems Maternal Aunt No Known Problems Maternal Grandmother No Known Problems Maternal Uncle No Known Problems Sister Relation Name Status Comments Maternal Aunt Diabetes Maternal Grandmother Diabete s, heart attack Maternal Uncle Diabetes Sister Diabetes Social History Tobacco Use Types Packs/Day Years Used Date Smoking Tobacco: Never Smokeless Tobacco: Never Alcohol Use Standard Drinks/Week Comments Not Currently 0 (1 standard drink = 0.6 oz pur e alcohol) Comments No Sex and Gender Information Value Date Recorded Sex Assigned at Not on file Legal Sex Female 9:11 AM CDT Gender Identity Not on file Sexual Orientation Not on file Last Filed Vital Signs Vital Sign Reading Time Taken Comments Blood Pressure 152/90 09/21/2019 10:17 AM CDT Pulse 74 09/21/2019 10:17 AM CDT Temperature - - Respiratory Rate - - Oxygen Saturation 98% 09/21/2019 10:17 AM CDT Inhaled Oxygen Concentration - - Weight 72.1 kg (159 lb) 09/21/2019 10:17 AM CDT Height 152.4 cm (5') 09/21/2019 10:17 AM CDT Body Mass Index 31.05 09/21/2019 10:17 AM CDT Plan of Treatment Health Maintenance Due Date Last Done Comments Hepatitis C Virus (HCV) Screening 1972 TdaP Immunization 1972 Hepatitis B Immunization (1 of 3 - 19+ 3-dose series) 1991 Cologuard 2022 Immunochemical Fecal Occult Blood 2022 Pneumococcal Immunization (5 0+ years) (1 of 1 - PCV) 2022 Zoster Immunization (1 of 2) 2022 Colonoscopy 04/14/2024 04/14/2019 Colorectal Cancer Screening 04/14/2024 Influenza Immunization (#1) 07/31/202408/31, 09/15/2017, 08/21/2016 SARS-COV-2 Immunization (2023- season) 2024 12/12/2021, 11/14/2021 Respiratory Syncytial Virus (RSV) Immunization (Adult) (1 - 1-dose 75+ series) 2047 04/14/2019 Meningococcal Immunization (ACWY) Aged Out No longer eligible b ased on patient's age to complete this topic Rotavirus Immunization Aged Out No lo nger eligible based on patient's age to complete this topic Procedures Procedure Name Priority Date/Time Associated Diagnosis Comments COLONOSCOPY Routine 04/14/2019 from Last 3 Months or Most Recently Relevant to Health Maintenance Results * COLONOSCOPY (04/14/2019) Renzo Steve DO PROCEDURE/MINOR SURGICAL ORDERA BLES Final Result from Last 3 Months or Most Recently Relevant to Health Maintenance Insurance MEDICAID [facility] Care Teams Billet Examiner Relationship Specialty Start Date End Date Mike Victor PA [address] [place] [address] PCP - General Physician 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
--- OUTSIDE RECORDS SUMMARY | 2025-03-08 15:08 | XMS_ITS | Referral Summary ---
Author Organization [facility] Address [address] [place] [id number] Care Team Providers Care Coding Support Specialist Name Role Phone Unknown, Notinfile Primary Care Provider Unavail able Allergies No known active allergies Medications dicyclomine (BENTYL) 20 mg tabletIndication s:Irritable Bowel Syndrome Take 1 tablet (20 mg total) by mouth 2 (two) times a day 20 tablet 03/28/[address] (PROTONIX) 40 mg EC tablet Take 1 tablet (40 mg total) by mouth daily 30 tablet 03/28/2021 Active Social History Tobacco Use Types Packs/Day Years Used Date Smoking Tobacco: Never Assessed Comments Unknown Sex and Gender Information Value Date Recorded Sex Assigned at Not on file Legal Sex Female 8:03 AM RESIDENTIAL 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 Gender Identity Not on file Sexual Orientation Not on file Last Filed Vital Signs Vital Sign Reading Time Taken Comments Blood Pressure 157/96 07/12/2021 10:37 PM CDT Pulse 92 07/12/2021 10:37 PM CDT Temperature 38.2 C (100.8 F) 07/12/2021 10:37 PM CDT Respiratory Rate 18 07/12/2021 10:37 PM CDT Oxygen Saturation 98% 07/12/2021 10:37 PM CDT Inhaled Oxygen Concentration - - Weight 72.6 kg (160 lb) 07/12/2021 10:37 PM CDT Height 152.4 cm (5') 07/12/2021 10:37 PM CDT Body Mass Index 31.25 07/12/2021 10:37 PM CDT Plan of Treatment Not on file Procedures Procedure Name Priority Date/Time Associated Diagnosis Comments THINPREP PAP Routine 01/03/2015 1:45 AM RESIDENTIAL 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 HEPATITIS PANEL, ACUTE Routine 10/31/2013 3:34 PM RESIDENTIAL 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 from Last 3 Months or Most Recently Relevant to Health Maintenance Results * ThinPrep Pap (01/03/2015 1:45 AM RESIDENTIAL 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) Thin Prep Pap Smear SEE BELOW () 01/13 8:49 AM RESIDENTIAL 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 [facility] HISTORICAL RESULTS Comment: Media Promoter ThinPrep Cytology Final Report ThinPrep Pap Specimen Source Cervix/Endocervix Specimen Adequacy Satisfactory for interpretation, endocervical cells (transformation zone) present. Interpretation Negative for intraepithelial lesion or malignancy. 01/13/15 Statistician Theoretical: RIVKA Benites(ASCP) 01/13/15 Verified By: RIVKA Benites(ASCP) electronic signature [facility], Department of Pathology For questions regarding this case, call ext. [phone] CPT Code(s) 42511 Clinical History LMP: [id number] : N : N IUD: N Hormone Therapy: N Postmenopausal: N Previous surgery date and type: N Hysterectomy: N Chemotherapy: N FARIDA Exposure: N Radiation: N Previous Abnormal Pap? Details: N Diagnostic or Screening Pap Test: Screening Performed by [employer], [address] [place] [id number] [email or web address], Blaze Weems MD - Lab. Director 01/03/2015 1:45 AM RESIDENTIAL 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 01/03/2015 3:49 PM RESIDENTIAL 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 us Luis Saenz MD LAB PATHOLOGY ORDERABLE S Final Result [facility] HISTORICAL RESULTS * Hepatitis panel, acute (10/31/2013 3:34 PM RESIDENTIAL 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) HepBsAg NONREACT NONREACTIVE 10/31/2013 5:55 PM RESIDENTIAL 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 [facility] HISTORICAL RESULTS Comment: Siemens CentaurXP using AMEYA (chemiluminescent immunoassay) technology. NONREACTIVE: IgM antibodies to Hepatitis B Surface antigen not detected. REACTIVE: IgM antibodies to Hepatitis B Surface antigen detected. Reactive results will be confirmed by neutralization testing. HBsAb (immune status) NONREACT NONREACTIVE 10/31/2013 5:46 PM RESIDENTIAL 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 [facility] HISTORICAL RESULTS Comment: Siemens CentaurXP using AMEYA (chemiluminescent immunoassay) technology. NONREACTIVE: IgM antibodies to Hepatitis B Surface antibody not detected. REACTIVE: IgM antibodies to Hepatitis B Surface antibody detected. Hep B core IgM NONREACT NONREACTIVE 3 6:40 PM RESIDENTIAL 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 [facility] HISTORICAL RESULTS Comment: Siemens CentaurXP using AMEYA (chemiluminescent immunoassay) technology. NONREACTIVE: IgM antibodies to Hepatitis B Core antigen not detected. EQUIVOCAL: IgM antibodies to Hepatitis B Core antigen may or may not be present. Obtain a new specimen and retest. REACTIVE: IgM antibodies to Hepatitis B Core antigen detected. Hep A IgM NONREACT NONREACTIVE 10/31/2013 6:40 PM RESIDENTIAL 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 [facility] HISTORICAL RESULTS Comment: Siemens CentaurXP using AMEYA (chemiluminescent immunoassay) technology. NONREACTIVE: IgM antibodies to Hepatitis A not detected. This does not exclude possibility of exposure to Hepatitis A or early acute infection. EQUIVOCAL:IgM antibodies to Hepatitis A may or may not be present. Suggest recollection and retest. REACTIVE: Antibodies to Hepatitis A detected. Hep C Ab NONREACT NONREACTIVE 10/31/2013 6:40 PM RESIDENTIAL 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 [facility] [employer] [facility] HISTORICAL RESULTS Comment: Siemens CentaurXP using AMEYA (chemiluminescent immunoassay) technology. NONREACTIVE: Antibodies to Hepatitis C not detected. This does not exclude early acute Hepatitis C infection, possibility of exposure to Hepatitis C, antibodies below detection limit, or to lack of antibody reactivity to the antigen used in this assay. EQUIVOCAL: Antibodies to Hepatitis C may or may not be present. Sample to be confirmed by real-time PCR method. REACTIVE: Antibodies to Hepatitis C detected. 10/31/2013 3:34 PM RESIDENTIAL 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 10/31/2013 4:49 PM RESIDENTIAL 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 Luis Saenz MD LAB MICROBIOLOGY - GENE RAL ORDERABLES Final Result [facility] HISTORICAL RESULTS from Last 3 Months or Most Recently Relevant to Health Maintenance Insurance [facility] Care Teams Coding Support Specialist Relationship Specialty Start Date End Date Unknown, Notinfile PCP - General 01/03/19
--- OUTSIDE RECORDS SUMMARY | 2025-03-08 15:08 | XMS_ITS | Encounter Summary ---
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 Historical Provider Final Res ult documented in this encounter Visit Diagnoses Not on filedocumented in this encounter Additional Health Concerns Infection Onset Date Last Indicated Resolved Time COVID: Suspected 07/13/2021 07/13/2021 07/13/2021 11:24 AM CDT documented as of this encounter Care Teams Roller Printer Relationship Specialty Start Date End Date Unknown, Notinfile PCP - General 01/03/19 documented as of this encounter
--- OUTSIDE RECORDS SUMMARY | 2025-03-08 15:08 | XMS_ITS | CONTINUITY OF CARE DOCUMENT ---
Author Name navdeep sethi Address Unknown Organization [facility] Address [address] [place] [address] [address] [place] [address] Phone [phone] Care Team Providers Care Suture Winder Hand Name Role Phone Lorna CARNEY, Nir Kirby Unavailable JODY SPAIN Unavailable TRELL ELENA MD Unavailable PROBLEMS Condition Status Date Provider Notes DVT active Iker Bahena RN Cardiology examination active Yoli drummond EXCHANGE FLOOR MANAGER GERD active Nir Rothman MD Neuropathy active Omar Begum MD Obesity active Omar Begum MD PVD; active Omar Begum MD HTN essential;neg angio active Omar rodriguez MD Screening active Omar Begum MD Exposure to SARS-associated coronavirus;neg igg active Omar Begum MD FAMILY HISTORY OF HEART DISEASE active Omar Begum MD mom had mi Diabetes Mellitus, Type II, uncontrolled completed - Omar Begum MD Chest pain-type to be determined completed - Omar Begum MD SLEEP APNEA;on rx active Omar Begum MD Snoring completed - Omar Begum MD Leg pain completed - Omar Begum MD Hypertension completed - Omar Begum MD Hyperlipidemia active ? Nir Rothman MD Diabetes, Type 2 active ? Nir Rothman MD Family History of Hypertension: completed - Omar Begum MD Family History of Hyperlipidemia: completed - Omar Begum MD Family History of CVA or Stroke: completed - Omar Begum MD Family History Coronary Heart Disease female < 65: completed - Omar Begum MD ENCOUNTERS Date Type Provider Location Encounter Diag nosis - In-person encounter Office Visit Nir Rothman MD [facility] Cardiology examination - In-person encounter Office Visit Nir Rothmna MD [facility] - In-person encounter Office Visit Nir Rothman MD [facility] GERD - In-person encounter Office Visit Nir Rothman MD [facility] - In-person encounter Office Visit Nir Rothman MD [facility] - In-person encounter Office Visit Omar Begum MD [facility] Family History Coronary Heart Disease female < 65:Family History of CVA or Stroke:Family History of Hyperlipidemia:Family History of Hypertension:Hypertension Leg painSnoringSLEEP APNEA;on rxChest pain-type to be determinedDiabetes Mellitus, Type II, uncontrolledFAMILY HISTORY OF HEART DISEASEExposure to SARS-associated coronavirus;neg iggScreeningHTN essential;neg angioPVD;ObesityNeuropath y - In-person encounter Office Visit Nir Rothman MD [facility] - In-person encounter Office Visit Nir Rothman MD [facility] - In-person encounter Office Visit Nir Rothman MD [facility] - In-person encounter Office Visit Nir Rothman MD [facility] - In-person encounter Office Visit Nir Rothman MD [facility] - In-person encounter Office Visit Nir Rothman MD [facility] SLEEP APNEA;on rx - In-person encounter Office Visit Raulito Acevedo MD [facility] - In-person encounter Office Visit Nir Rothman MD [facility] Diabetes, Type 2Hyperlipidemia VITAL SIGNS Date Observation Value Provider blood pressure, diastolic 84 mm[Hg] Han mikaela Wren blood pressure, systolic 122 mm[Hg] Charu peter Wren oxygen saturation, oximetry 100 % [facility] pulse rate 74 /min [facility] height E&M 61 [in_i] [facility] Body Mass Index (Ratio) 29.66 kg/m2 Tyree Rothman MD blood pressure, diastolic 123 mm[Hg] St piero Hernandez blood pressure, systolic 159 mm[Hg] Amairani Hernandez oxygen saturation, oximetry 97 % Renetta Hernandez pulse rate 74 /min Renetta Hernandez weight E&M 157 [lb_av] Renetta Hernandez respiratory rate E&M 18 /min Renetta cordova height E&M 61 [in_i] Renetta Hernandez Body Mass Index (Ratio) 31.74 kg/m2 Tyree Rothman MD blood pressure, cuff size large Ke rri Jaxson blood pressure, diastolic 80 mm[Hg] Ke rri Chrisuenecarmelina blood pressure, systolic 130 mm[Hg] Ker ri Jaxson oxygen saturation, oximetry 98 % Page Jaxson respiratory rate E&M 16 /min Page dunlap pulse rate 77 /min Page Kia [facility] weight E&M 168 [lb_av] Page Perezangelrosis [facility] height E&M 61 [in_i] Page Adam [facility] Body Mass Index (Ratio) 31.55 kg/m2 Gracie Miller blood pressure, diastolic 84 mm[Hg] To nsha Olivares blood pressure, systolic 120 mm[Hg] Ton sha Olivares oxygen saturation, oximetry 98 % Tonsha Olivares respiratory rate E&M 16 /min Tonsha Olivares pulse rate 88 /min Tonsha Olivares weight E&M 167 [lb_av] Tonsha Olivares height E&M 61 [in_i] Tonsha Olivares Body Mass Index (Ratio) 31.93 kg/m2 Tyree Rothman MD blood pressure, diastolic 89 mm[Hg] To nsha Olivares blood pressure, systolic 131 mm[Hg] Ton sha Olivares oxygen saturation, oximetry 98 % Tonsha Olivares respiratory rate E&M 16 /min Tonsha Olivares pulse rate 75 /min Tonsha Olivares weight E&M 169 [lb_av] Tonsha Olivares height E&M 61 [in_i] Tonsha Olivares temperature site temporal Diane Tank [facility] temperature E&M 97.1 [degF] Diane Tanks jame Body Mass Index (Ratio) 30.80 kg/m2 Segundo Begum MD blood pressure, diastolic 96 mm[Hg] To nsha Olivares blood pressure, systolic 128 mm[Hg] Ton sha Olivares oxygen saturation, oximetry 97 % Tonsha Olivares respiratory rate E&M 16 /min Tonsha Olivares pulse rate 77 /min Tonsha Olivares weight E&M 163 [lb_av] Tonsha Olivares height E&M 61 [in_i] Tonsha Olivares temperature site temporal Diane [facility] temperature E&M 96.8 [degF] Daine [facility] Body Mass Index (Ratio) 31.55 kg/m2 Tyree Rothman MD blood pressure, diastolic 86 mm[Hg] [facility], systolic 109 mm[Hg] [facility] oxygen saturation, oximetry 98 % [facility] respiratory rate E&M 16 /min [facility] pulse rate 76 /min [facility] weight E&M 167 [lb_av] [facility] height E&M 61 [in_i] [facility] temperature E&M 97.3 [degF] Diane [facility] Body Mass Index (Ratio) 34.38 kg/m2 Tyree Rothman MD weight E&M 182 [lb_av] [facility] oxygen saturation, oximetry 98 % Gerson Potter blood pressure, diastolic 90 mm[Hg] Pablo Potter blood pressure, systolic 126 mm[Hg] Jenny Potter pulse rate 92 /min [facility] respiratory rate E&M 16 /min Gerson Potter height E&M 61 [in_i] [facility] Body Mass Index (Ratio) 35.33 kg/m2 Kimberly Salinas blood pressure, diastolic 85 mm[Hg] Angelina Desai blood pressure, systolic 138 mm[Hg] Kathy Desai oxygen saturation, oximetry 96 % Giorgio Desai respiratory rate E&M 18 /min Bindu Desai pulse rate 74 /min Giorgio greenwood weight E&M 187 [lb_av] Giorgio greenwood height E&M 61 [in_i] Giorgio greenwood Body Mass Index (Ratio) 35.71 kg/m2 Tyree Rothman MD blood pressure, resting Yes Linnea Desai blood pressure, diastolic 92 mm[Hg] Angelina aPdilla Bensonenson blood pressure, systolic 147 mm[Hg] Kathy Jaqueline Bensonenson oxygen saturation, oximetry 98 % Giorgio Desai respiratory rate E&M 18 /min Bindu Desai pulse rate 72 /min Giorgio greenwood weight E&M 189 [lb_av] Giorgio greenwood height E&M 61 [in_i] Giorgio greenwood Body Mass Index (Ratio) 36.65 kg/m2 Tyree Rothman MD blood pressure, diastolic 82 mm[Hg] Da cam Mayank blood pressure, systolic 138 mm[Hg] Dac ia Mayank oxygen saturation, oximetry 98 % Jenny Mayank respiratory rate E&M 16 /min Jenny V oss pulse rate 57 /min Jenny Mayank weight E&M 194 [lb_av] Jenny Mayank height E&M 61 [in_i] Jenny Mayank blood pressure, diastolic 90 mm[Hg] Angelina Desai blood pressure, systolic 140 mm[Hg] Kathy Desai pulse rate 67 /min Giorgio greenwood oxygen saturation, oximetry 98 % Giorgio Desai respiratory rate E&M 16 /min Bindu bravo Desai Body Mass Index (Ratio) 36.16 kg/m2 Linnea Merrill Desai weight E&M 191.4 [lb_av] Giorgio rodarte Body Mass Index (Ratio) 38.35 kg/m2 Abrams i [place] blood pressure, diastolic 76 mm[Hg] Ke rri Chrisnicholekee blood pressure, systolic 110 mm[Hg] Scar ri [place] pulse rate 82 /min Page Adam lder oxygen saturation, oximetry 98 % Page [place] respiratory rate E&M 16 /min Page [place] weight E&M 203 [lb_av] Page Adam lder height E&M 61 [in_i] Page Adam lder ALLERGIES No Known Drug Allergies RESULTS Date Observation Value Provider Reference Range Interpretation Location HDL cholesterol, serum 63 mg/dL [facility] >39 triglyceride, serum, random 210 mg/dL [facility] 0-149 High cholesterol, serum 246 mg/dL [facility] 100-199 High alanine aminotransferase (SGPT), serum 16 1/L [facility] 0-32 aspartate aminotransferase (SGOT), serum 14 1/L [facility] 0-40 alkaline phosphatase, serum 68 1/L [facility] 39-117 bilirubin, serum, total <0.2 mg/dL [facility] 0.0-1.2 albumin/globulin ratio, serum 1.6 [facility] 1.2-2.2 globulin, serum 2.8 [facility] 1.5-4.5 albumin, serum 4.5 g/dL [facility] 3.8-4.8 protein, total, serum 7.3 g/dL [facility] 6.0-8.5 calcium, serum 10.3 mg/dL [facility] 8.7-10.2 High carbon dioxide, venous blood 24 mmol/L [facility] 20-29 chloride, serum 103 mmol/L [facility] 96-106 potassium, serum 5.0 mmol/L [facility] 3.5-5.2 sodium, serum 140 mmol/L [facility] 153-140 4530/09/ 12 urea nitrogen/creatinine ratio, serum 19 [facility] 9-23 eGFR if 106 mL/min/{1.7 3_m2} [facility] >59 eGFR if not 92 mL/min/{1.7 3_m2} [facility] >59 creatinine, serum 0.77 mg/dL [facility] 0.57-1.00 urea nitrogen, blood 15 mg/dL [facility] 6-24 blood glucose, random 195 mg/dL [facility] 65-99 High B-12, serum 583 pg/mL [facility] 232-1245 rapid plasma reagin antibody screen Non Reactive [facility] Non Reactive lipoprotein, beta, serum, point, quantitative, calculated 140 mg/dL [facility] 0-99 High very low density lipoproteins 67 mg/dL [facility] 5-40 High HDL cholesterol, serum 63 mg/dL [facility] >39 triglyceride, serum, random 336 mg/dL [facility] 0-149 High cholesterol, serum 270 mg/dL [facility] 100-199 High very low density lipoproteins 49.6 mg/dL [facility] 5.0 - 40.0 High LDL/HDL (low-density lipoprotein/high-den sity lipoprotein) ratio 2.7 RATIO [facility] - lipoprotein, beta, serum, point, quantitative, calculated 172.4 (?) [facility] 0.0 - 100.0 High HDL cholesterol, serum 64.0 mg/dL [facility] 45.0 - 65.0 cholesterol, serum 286.0 mg/dL [facility] 0.0 - 200.0 High triglyceride, serum, fasting 248.0 mg/dL [facility] 0.0 - 150.0 High albumin/globulin ratio, serum 1.4 g/dL [facility] 1.1 - 2.5 globulin, serum 3.0 [facility] 2.3 - 3.8 albumin, serum 4.2 g/dL [facility] 3.5 - 5.2 aspartate aminotransferase (SGOT), serum 12.0 1/L [facility] 0.0 - 32.0 alkaline phosphatase, serum 86.0 1/L [facility] 40.0 - 130.0 alanine aminotransferase (SGPT), serum 15.0 1/L [facility] 0.0 - 33.0 protein, total, serum 7.2 g/dL [facility] 6.6 - 8.7 bilirubin, serum, total 0.3 mg/dL [facility] 0.0 - 1.2 hemoglobin A1C, blood, as % of total hemoglobin 12.3 % [facility] 4.0 - 5.6 High HISTORY OF MEDICATION USE Medication Status Instructions Dates Provider Indications Com ments hydrochlorothiazide 25 mg tablet active TAKE 1 TABLET BY MOUTH EVERY DAY 12/01 Manisha Brewster U-100 Insulin 100 unit/mL (3 mL) insulin pen active Yoli Ventimiglia EXCHANGE FLOOR MANAGER Farxiga 10 mg tablet active Yoli Ventimiglia EXCHANGE FLOOR MANAGER rosuvastatin 40 mg tablet active Yoli Ventimiglia EXCHANGE FLOOR MANAGER fluticasone propionate 50 mcg/actuation spray,suspension active Yoli Ventimiglia EXCHANGE FLOOR MANAGER famotidine 20 mg tablet active Yoli Ventimiglia EXCHANGE FLOOR MANAGER butalbital-acetamin ophen-caff 50-325-40 mg tablet active Yoli Ventimiglia EXCHANGE FLOOR MANAGER Eliquis 5 mg tablet active TAKE 1 TABLE T BY MOUTH TWICE DAILY 03/25 Manisha Gregory VASCEPA 1 GM ORAL CAPSULE completed 2 capsules by mouth twice daily [place] Coupon Code: BIN# [id number], PCN# [id number], GRP# [id number], ID# [id number] 05/18 - 05/30 Linnea Keith RN Eliquis 5 mg tablet completed Take 1 table t by mouth twice a day 05/19 - 03/25 Page Puri STEGLUJAN 15-100 MG ORAL TABLET completed one tab daily 04/18 - 05/02 Omar Begum MD Lyrica 25 mg capsule active once a day 04/18 Page Puri NAPROXEN 500 MG ORAL TABLET completed one tab dailly 01/07 - 05/02 Omar Begum MD #[id number], 30 days supply, Prescribed by JODY VICTOR, Filled 11/06/2018 METOPROLOL TARTRATE 25 MG ORAL TABLET completed ONE TABLET TWICE A DAY 06/01 - 04/18 Nir Rothman MD MAGNESIUM 500 MG ORAL CAPSULE completed one tablet PO bid 03/01 - 04/09 Gerson Potter METOPROLOL TARTRATE 50 MG ORAL TABLET completed one tab. twice daily 03/01 - 04/09 Gerson Potter LISINOPRIL 5 MG ORAL TABLET completed ONE TABLET DAILY 06/01 - 05/02 Omar Begum MD LIPITOR 40 MG ORAL TABLET completed ONE TAB. DAILY 03/01 - 08/20 Nir Rothman MD SOCIAL HISTORY Date Observation Value Provider personal history of marijuana use no Yoli Ventimiglia [facility] drug use no Yoli Ventimig guerita [facility] alcohol use no Yoli Ventimig guerita [facility] smoking status Never smoker [facility] Never smoker Nir lucas MD social history E&M Patient has n ever smoked. Smoking History: P lorraine has never smoked. Nir Rothman MD social history reviewed E&M revi ewed - no changes required Nir Rothman MD social history E&M Patient has n ever smoked. Smoking History: P atellie has never smoked. Nir Rothman MD social history reviewed E&M revi ewed - no changes required Nir Rothman MD smoking status Never smoker [facility] social history E&M Patient has n ever smoked. Smoking History: P lorraine has never smoked. Nir Rothman MD social history reviewed E&M revi ewed - no changes required Nir Rothman MD smoking status Never smoker [facility] social history E&M Patient has n ever smoked. Smoking History: P lorraine has never smoked. Omar Begum MD social history reviewed E&M revi ewed - no changes required Omar Begum MD smoking status Never smoker [facility] smoking status Never smoker Nir lucas MD social history E&M Patient has n ever smoked. Smoking History: P lorraine has never smoked. Nir Rothman MD social history reviewed E&M revi ewed - no changes required Nir Rothman MD alcohol use no [facility] smoking status Never smoker [facility] social history reviewed E&M revi ewed - no changes required [facility] reviewed E&M revi ewed - no changes required Nir Rothman MD social history E&M Patient has n ever smoked. Smoking History: Josh peters has never smoked. Nir Rothman MD alcohol use no Giorgio Loomis krystyna smoking status Never smoker Giorgio Peña number of grandchildren Nir Rothman MD social history E&M Patient has n ever smoked. Smoking History: P lorraine has never smoked. Nir Rothman MD social history reviewed E&M revi ewed - no changes required Nir Rothman MD alcohol use no Giorgio Loomis krystyna smoking status Never smoker Giorgio Peña social history reviewed E&M revi ewed - no changes required Nir Rothman MD alcohol use no Jenny Talley smoking status Never smoker Jenny Talley social history reviewed E&M revi ewed - no changes required Nir Rothman MD alcohol use no Giorgio greenwood smoking status Never smoker Giorgio Peña social history E&M Patient has n ever smoked. Smoking History: P atient has never smoked. Nir Rothman MD social history reviewed E&M revi ewed - no changes required Nir Rothman MD alcohol use no Page Adam lder smoking status Never smoker Nir lucas MD FAMILY HISTORY Family Member Condition Mother IN female <65 Mother Family History of Hy pertension: Mother Family History of Hy perlipidemia: Mother Family History of Di abetes: Mother Family History of CV A or Stroke: Mother Family History Coron shy Heart Disease female < 65: Father Family History Unkno wn INSURANCE PROVIDERS Payer name Policy type / Coverage type [place] [employer] (2) Medicaid [id number] ADVANCE DIRECTIVES Name Date DISCUSSED - NO DECISION MADE TREATMENT PLAN Date Name Performer [id number],C, O n CPAP T he patient is using CPAP on a regular basis. The patient has been benefiting from therapy and should continue use. April 10, 2023 T he patient is using CPAP on a regular basis. The patient has been benefiting from therapy and should continue use. Nir Rothman MD [id number],C, C P noted had CT no PE has esophagitis and pericardial cyst. Recommend EGD and H.. pylori eval. Nir Rothman MD [id number],C, b oth legs have DVT started on eliquis 04/30/2020. Still has leg pain. Needs to see specialist for veins at [facility]. M ild leg edema. No Kinjal's. CONCLUSIONS: 1 . DVT of the Femoral Vein bilaterally. The DVT appears acute to subacute in echogenicity. 2 . DVT of the right proximal femoral vein is sub-occlusive to flow. 3 . DVT of the distal left femoral vein is non-occlusive to flow. 4 . There is significant venous insuffciency of the bilateral GSV and SFJ. August 10, 2020 S aw specialist in vascular at [facility]. Was given compression stockings for both legs. Advised her to schedule f/u. Remain on ELiquis. April 03, 2021 W ent to [facility] was advised that there was no further treatment per her recollection. Recommended to remain on AC. S he should remain on compression stockings as well. April 10, 2023 s he went to [place] recently did not have a dvt study done there. will arrange for one Nir Rothman MD [id number],C, B P today: 130/80 P rior BP: 120/84 (08/10/2020) Labs Reviewed: C reat: 0.77 (08/11/2020) C hol: 246 (08/11/2020) HDL: 63 (08/11/2020) Her updated medication list for this problem includes: Losartan Potassium 50 Mg Oral Tablet (Losartan potassium) April 10, 2023 b p is high 159/123 will arrange for HCTZ 25 mg daily Nir Rothman MD Cardiology: H er updated medication list for this problem includes: Rosuvastatin 40 Mg Tablet (Rosuvastatin) [place] Marymimy [facility] Cardiology:The patie nt is using CPAP on a regular basis. The patient has been benefiting from therapy and should continue use. [place] Marymiglia [facility] Cardiology: b oth legs have DVT started on eliquis 04/30/2020. Still has leg pain. Needs to see specialist for veins at [facility]. M ild leg edema. No Kinjal's. CONCLUSIONS: 1 . DVT of the Femoral Vein bilaterally. The DVT appears acute to subacute in echogenicity. 2 . DVT of the right proximal femoral vein is sub-occlusive to flow. 3 . DVT of the distal left femoral vein is non-occlusive to flow. 4 . There is significant venous insuffciency of the bilateral GSV and SFJ. August 10, 2020 S aw specialist in vascular at [facility]. Was given compression stockings for both legs. Advised her to schedule f/u. Remain on ELiquis. April 03, 2021 W ent to [facility] was advised that there was no further treatment per her recollection. Recommended to remain on AC. She should remain on compression stockings as well. April 10, 2023 s he went to [place] recently did not have a dvt study done there. will arrange for one May 06, 2023 1 . No evidence of a deep vein thrombosis of the lower extremities bilaterally. October 10, 2024 R melanie on Eliquis for AC Yoli Searsjonnyia EXCHANGE FLOOR MANAGER Cardiology:BP today 122/84 Amand michael Ventimiglia EXCHANGE FLOOR MANAGER Cardiology: m ild by rajni 2019 FINDINGS: R ight Lower Extremity: Triphasic waveforms are seen in the common femoral, profunda femoris, proximal femoral, mid femoral, d istal femoral, popliteal, anterior tibial and posterior tibial. The RAJNI is 1.00. L eft Lower Extremity: Triphasic waveforms are seen in the common femoral, profunda femoris, proximal femoral, mid femoral, d istal femoral, popliteal, anterior tibial and posterior tibial. The RAJNI is 1.00. - C ONCLUSIONS: 1 . Normal arterial flow of the lower extremities bilaterally. 2 . Mild diffuse atherosclerosis seen in the tibial arteries bilaterally. HAVING GROIN PAIN ON THE LEFT WILL GET RAJNI DONE DOUBT VASCULAR THOUGH Yoli Marymiglia [facility] Cardiology: O n CPAP T he patient is using CPAP on a regular basis. The patient has been benefiting from therapy and should continue use. April 10, 2023 T he patient is using CPAP on a regular basis. The patient has been benefiting from therapy and should continue use. Nir Rothman MD Cardiology: C P noted had CT no PE has esophagitis and pericardial cyst. Recommend EGD and H.. pylori eval. Nir Rothman MD Cardiology: b oth legs have DVT started on eliquis 04/30/2020. Still has leg pain. Needs to see specialist for veins at [facility]. M ild leg edema. No Kinjal's. CONCLUSIONS: 1 . DVT of the Femoral Vein bilaterally. The DVT appears acute to subacute in echogenicity. 2 . DVT of the right proximal femoral vein is sub-occlusive to flow. 3 . DVT of the distal left femoral vein is non-occlusive to flow. 4 . There is significant venous insuffciency of the bilateral GSV and SFJ. August 10, 2020 S aw specialist in vascular at [facility]. Was given compression stockings for both legs. Advised her to schedule f/u. Remain on ELiquis. April 03, 2021 W ent to [facility] was advised that there was no further treatment per her recollection. Recommended to remain on AC. She should remain on compression stockings as well. April 10, 2023 s he went to [place] recently did not have a dvt study done there. will arrange for one Nir Rothman MD Cardiology: B P today: 130/80 P rior BP: 120/84 (08/10/2020) Labs Reviewed: C reat: 0.77 (08/11/2020) C hol: 246 (08/11/2020) HDL: 63 (08/11/2020) Her updated medication list for this problem includes: Losartan Potassium 50 Mg Oral Tablet (Losartan potassium) April 10, 2023 b p is high 159/123 will arrange for HCTZ 25 mg daily Nir Rothman MD Cardiology Follow up : H er updated medication list for this problem includes: Januvia Tablet (Sitagliptin phosphate tabs) ..... Once a day Steglatro 15 Mg Oral Tablet (Ertugliflozin l-pyroglutamicac) Losartan Potassium 50 Mg Oral Tablet (Losartan potassium) Glucophage 1000 Mg Oral Tablet (Metformin hcl) ..... Take one pill twice a day Lantus Solution (Insulin glargine soln) ..... 20 units at bedtime Nir Rothman MD Cardiology Follow up : H er updated medication list for this problem includes: Crestor 20 Mg Oral Tablet (Rosuvastatin calcium) ..... One tab. daily Zetia 10 Mg Oral Tablet (Ezetimibe) ..... One tab. daily with liptor Nir Rothman MD Cardiology Follow up : O n CPAP T he patient is using CPAP on a regular basis. The patient has been benefiting from therapy and should continue use. Nir Rothman MD Cardiology Follow up : B P today: 130/80 P rior BP: 120/84 (08/10/2020) Labs Reviewed: C reat: 0.77 (08/11/2020) C hol: 246 (08/11/2020) HDL: 63 (08/11/2020) Her updated medication list for this problem includes: Losartan Potassium 50 Mg Oral Tablet (Losartan potassium) Nir Rothman MD Cardiology Follow up :CP noted had CT no PE has esophagitis and pericardial cyst. Recommend EGD and H.. pylori eval. Nir Rothman MD Cardiology Follow up :Had COVID 10/2020. Not vaccinated. Nir Rothman MD Cardiology Follow up : b oth legs have DVT started on eliquis 04/30/2020. Still has leg pain. Needs to see specialist for veins at [facility]. M ild leg edema. No Kinjal's. CONCLUSIONS: 1 . DVT of the Femoral Vein bilaterally. The DVT appears acute to subacute in echogenicity. 2 . DVT of the right proximal femoral vein is sub-occlusive to flow. 3 . DVT of the distal left femoral vein is non-occlusive to flow. 4 . There is significant venous insuffciency of the bilateral GSV and SFJ. August 10, 2020 S aw specialist in vascular at [facility]. Was given compression stockings for both legs. Advised her to schedule f/u. Remain on ELiquis. April 03, 2021 W ent to [facility] was advised that there was no further treatment per her recollection. Recommended to remain on AC. S he should remain on compression stockings as well. Nir Rothman MD Cardiology Follow up : m ild by rajni FINDINGS: R ight Lower Extremity: Triphasic waveforms are seen in the common femoral, profunda femoris, proximal femoral, mid femoral, d istal femoral, popliteal, anterior tibial and posterior tibial. The ARJNI is 1.00. L eft Lower Extremity: Triphasic waveforms are seen in the common femoral, profunda femoris, proximal femoral, mid femoral, distal femoral, popliteal, anterior tibial and posterior tibial. The RAJNI is 1.00. - C ONCLUSIONS: 1 . Normal arterial flow of the lower extremities bilaterally. 2 . Mild diffuse atherosclerosis seen in the tibial arteries bilaterally. Nir Rothman MD Cardiology: L abs Reviewed: H gBA1c: 12.3 (05/07/2017) Her updated medication list for this problem includes: Steglatro 15 Mg Oral Tablet (Ertugliflozin l-pyroglutamicac) Losartan Potassium 50 Mg Oral Tablet (Losartan potassium) Glucophage 1000 Mg Oral Tablet (Metformin hcl) ..... Take one pill twice a day Lantus Solution (Insulin glargine soln) ..... 20 units at bedtime Nir Rothman MD Cardiology: B P today: 120/84 P rior BP: 131/89 (05/30/2020) Labs Reviewed: C hol: 270 (2020) HDL: 63 (2020) Her updated medication list for this problem includes: Losartan Potassium 50 Mg Oral Tablet (Losartan potassium) Nir Rothman MD Cardiology: O n CPAP Nir Rothman MD Cardiology Nir Rothman MD Cardiology: b oth legs have DVT started on eliquis 04/30/2020. Still has leg pain. Needs to see specialist for [facility]. M ild leg edema. No Kinjal's. CONCLUSIONS: 1 . DVT of the Femoral Vein bilaterally. The DVT appears acute to subacute in echogenicity. 2 . DVT of the right proximal femoral vein is sub-occlusive to flow. 3 . DVT of the distal left femoral vein is non-occlusive to flow. 4 . There is significant venous insuffciency of the bilateral GSV and SFJ. August 10, 2020 S specialist in vascular at [facility]. Was given compression stockings for both legs. Advised her to schedule f/u. Remain on ELiquis. Nir Rothman MD Cardiology: m ild by rajni FINDINGS: R ight Lower Extremity: Triphasic waveforms are seen in the common femoral, profunda femoris, proximal femoral, mid femoral, d istal femoral, popliteal, anterior tibial and posterior tibial. The RAJNI is 1.00. L eft Lower Extremity: Triphasic waveforms are seen in the common femoral, profunda femoris, proximal femoral, mid femoral, d istal femoral, popliteal, anterior tibial and posterior tibial. The RAJNI is 1.00. - C ONCLUSIONS: 1 . Normal arterial flow of the lower extremities bilaterally. 2 . Mild diffuse atherosclerosis seen in the tibial arteries bilaterally. Nir Rothman MD Cardiology: O n CPAP Nir Rothman MD Cardiology: H er updated medication list for this problem includes: Losartan Potassium 50 Mg Oral Tablet (Losartan potassium) BP today: 131/89 P rior BP: 128/96 (05/02/2020) Labs Reviewed: C hol: 270 (2020) HDL: 63 (2020) Nir Rothman MD Cardiology: m ild by rajni FINDINGS: R ight Lower Extremity: Triphasic waveforms are seen in the common femoral, profunda femoris, proximal femoral, mid femoral, d istal femoral, popliteal, anterior tibial and posterior tibial. The RAJNI is 1.00. L eft Lower Extremity: Triphasic waveforms are seen in the common femoral, profunda femoris, proximal femoral, mid femoral, d istal femoral, popliteal, anterior tibial and posterior tibial. The RAJNI is 1.00. - C ONCLUSIONS: 1 . Normal arterial flow of the lower extremities bilaterally. 2 . Mild diffuse atherosclerosis seen in the tibial arteries bilaterally. Nir Rothman MD Cardiology: b oth legs have DVT started on eliquis 04/30/2020. Still has leg pain. Needs to see specialist for veins at [facility]. M ild leg edema. No Kinjal's. CONCLUSIONS: 1 . DVT of the Femoral Vein bilaterally. The DVT appears acute to subacute in echogenicity. 2 . DVT of the right proximal femoral vein is sub-occlusive to flow. 3 . DVT of the distal left femoral vein is non-occlusive to flow. 4 . There is significant venous insuffciency of the bilateral GSV and SFJ. Nir Rothman MD :neg b112 and rpr Omar Begum MD Cardiology: L abs Reviewed: H gBA1c: 12.3 (05/07/2017) Omar Begum MD Cardiology Omar Begum MD Cardiology Omar Begum MD Cardiology: T he following medications were removed from the medication list: Lisinopril 5 Mg Oral Tablet (Lisinopril) ..... One tablet daily Her updated medication list for this problem includes: Losartan Potassium 50 Mg Oral Tablet (Losartan potassium) BP today: 128/96 P rior BP: 109/86 (04/18/2020) Labs Reviewed: C hol: 286.0 (05/07/2017) HDL: 64.0 (05/07/2017) T.0 (05/07/2017) Omar Begum MD Cardiology:mild by rajni Omar herr MD Cardiology Omar Begum MD Cardiology: O n CPAP Omar Begum MD Cardiology:neg cath 15,neg caroi ud dupelx Omar Begum MD Cardiology:both legs started on eliquis yeasterdy Omar Begum MD Cardiology: H er updated medication list for this problem includes: Steglujan 15-100 Mg Oral Tablet (Ertugliflozin-sitagliptin) ..... One tab daily Lisinopril 5 Mg Oral Tablet (Lisinopril) ..... One tablet daily Glucophage 1000 Mg Oral Tablet (Metformin hcl) ..... Take one pill twice a day Lantus Solution (Insulin glargine soln) ..... 20 units at bedtime Nir Rothman MD Cardiology:STOP Lipi tor for 2 weeks to see if that helps improve her hip pain. H er updated medication list for this problem includes: Lipitor 40 Mg Oral Tablet (Atorvastatin calcium) ..... One tab. daily Nir Rothman MD Cardiology:Stopped t aking her Metoprolol. H er updated medication list for this problem includes: Metoprolol Tartrate 25 Mg Oral Tablet (Metoprolol tartrate) ..... One tablet twice a day Lisinopril 5 Mg Oral Tablet (Lisinopril) ..... One tablet daily Nir Rothman MD Cardiology:DVT study and arterial study. Low likely marquez. Get a XRay of the R Hip. Have her follow up with PCP. Nir Rothman MD Cardiology: O n CPAP Nir Rothman MD Cardiology:Followed by Dr. Victor. Order A1C. O rders: 9 9215 HIGH Complex (CPT-07027) C OMPREHENSIVE METABOLIC PANEL, W/EGFR (20241) L IPID PANEL (7600) H EMOGLOBIN A1c (496) [facility] Cardiology:This dago ent?s angina is disabling and in my opinion is not readily amenable to surgical intervention by PTCA or cardiac bypass because the patient's coronary anatomy is not readily amenable to such procedures. Will try ECP as she is having recurrent CP. O rders: E KG (CPT-54750) 9 9215 HIGH Complex (CPT-57653) C OMPREHENSIVE METABOLIC PANEL, W/EGFR (21361) L IPID PANEL (7600) H EMOGLOBIN A1c (496) E CP Commercial (CPT-46328) E CP - Medicare (CPT-G0166) [facility] Cardiology:The patie nt is using CPAP on a regular basis. The patient has been benefiting from therapy and should continue use. Nir Rothman MD Cardiology:A1c 12 in April 2017. [facility] Cardiology: O n CPAP Nir Rothman MD Cardiology:CHOL: 286 .0 (05/07/2017) HDL: 64.0 (05/07/2017) T.0 (05/07/2017). WILL SEE IF SHE IS A CANDIDATE FOR DERIK 9 OR DERIK 10. Her updated medication list for this problem includes: Lipitor 40 Mg Oral Tablet (Atorvastatin calcium) ..... One tab. daily Orders: 9 9215 HIGH Complex (CPT-27505) L IPID PANEL (7600) C OMPREHENSIVE METABOLIC PANEL, W/EGFR (48979) E CP - Medicare (CPT-G0166) E CP Commercial (CPT-65332) Nir Rothman MD Cardiology:May be re lated to microvascular angina. This patient?s angina is disabling and in my opinion is not readily amenable to surgical intervention by PTCA or cardiac bypass because the patient's coronary anatomy is not readily amenable to such procedures. O rders: 9 9215 HIGH Complex (CPT-73379) L IPID PANEL (7600) C OMPREHENSIVE METABOLIC PANEL, W/EGFR (91803) E CP - Medicare (CPT-G0166) E CP Commercial (CPT-99301) Nir Rothman MD Cardiology: B P today: 138/85 P rior BP: 147/92 (05/06/2017) LHer updated medication list for this problem includes: Metoprolol Tartrate 50 Mg Oral Tablet (Metoprolol tartrate) ..... One tab. twice daily Lisinopril 10 Mg Oral Tablet (Lisinopril) ..... One tab. daily Orders: 9 9215 HIGH Complex (CPT-80242) L IPID PANEL (7600) C OMPREHENSIVE METABOLIC PANEL, W/EGFR (74992) E CP - Medicare (CPT-G0166) E CP Commercial (CPT-47602) [facility] Cardiology:Check panel Nir Rothman MD Cardiology:Check panle Nir Rothman MD Cardiology:Check A1c Nir corral MD Cardiology: O n CPAP Nir Rothman MD Cardiology:Check BPs at home to determine advancing meds. H er updated medication list for this problem includes: Metoprolol Tartrate 50 Mg Tabs (Metoprolol tartrate) ..... One tab. twice daily Lisinopril 5 Mg Tabs (Lisinopril) ..... One tab. daily Nir Rothman MD Cardiology: H er updated medication list for this problem includes: Lipitor 10 Mg Oral Tabs (Atorvastatin calcium) ..... Take one pill a day Nir Rothman MD Cardiology:did not t mali morning medrx H er updated medication list for this problem includes: Metoprolol Tartrate 50 Mg Tabs (Metoprolol tartrate) ..... One tab. twice daily Lisinopril 5 Mg Tabs (Lisinopril) ..... One tab. daily Nir Rothman MD Cardiology:leg pain may be neuropathic will need to get rajni done Nir Rothman MD Cardiology Nir Rothman MD Hospital Follow up : H er updated medication list for this problem includes: Lisinopril 20 Mg Oral Tabs (Lisinopril) ..... Take one pill a day Nir Rothman MD Date Name Stress Regadenoson Arterial Duplex Bi-L ower EX Complete Echo Venous Doppler Bilat eral LE COMPREHENSIVE METABO LIC PANEL, W/EGFR LIPID PANEL LIPID PANEL CT, Coronary Calcium Score RPR (MONITOR) W/REFL TITER VITAMIN B12 Complete Echo Covid Antibody Igg LIPID PANEL Venous Doppler Bilat eral LE - Reflux Arterial Duplex Bi-L ower EX X-Ray, Hip ECP - Medicare ECP Commercial HEMOGLOBIN A1c LIPID PANEL COMPREHENSIVE METABO LIC PANEL, W/EGFR HEMOGLOBIN A1c ECP Commercial ECP - Medicare COMPREHENSIVE METABO LIC PANEL, W/EGFR LIPID PANEL HEMOGLOBIN A1c HEPATIC FUNCTION CUEVAS EL LIPID PANEL Carotid Duplex Bilat eral Complete Echo Sleep Study Titratio n Sleep Study Home Arterial Duplex Bi-L ower EX Sleep Study Home HISTORY OF PROCEDURES Procedure Date Procedure Name Provider Procedure Notes S tatus Complex e/m visit add on Nir Rothman MD completed EKG Nir Rothman MD completed EKG Nir Rothman MD completed EKG Nir Rothman MD completed EKG Nir Rothman MD completed EKG Nir Rothman MD completed EKG Nir Rothman MD completed EKG Nir Rothman MD completed EKG Nir Rothman MD completed SNOMED-CT: 674148926 [id number] Current Medications Documented Nir Rothman MD completed EKG Nir Rothman MD completed SNOMED-CT: 788743037 [id number] Current Medications Documented Nir Rothman MD completed EKG Nir Rothman MD completed SNOMED-CT: [id number] Current Medications Documented Nir Rothman MD completed Lipid Strip Nir Rothman MD completed EKG Nir Rothman MD completed SNOMED-CT: [id number] 783971 Current Medications Documented Nir Rothman MD completed EKG Nir Rothman MD completed
--- OUTSIDE RECORDS SUMMARY | 2025-03-08 15:09 | XMS_ITS | Data Portability ---
Author Organization [facility] [place] [facility] Address [address] [place] [address] Care Team Providers Care Ecosystem Ecology Professor Name Role Phone JUANITO ELENA Primary Care Provider [phone] Assessment No assessment recorded. Plan of Treatment Reminders Order Date Submit Date Provider Last Modified By Organization Details Last Modified Time Details Appointments None recorded. Lab influenza virus A + B + SARS-CoV- 2 (COVID19) Ag panel, rapid IA, upper respirato ry specimen 2024 025 [place] [id number] In-Office Order, Internal Use Only DO Not Attach Compendium DO Not Attach Compendium, Do Not Delete/merge, [id number] 5 15:38:45 HbA1c (hemoglob in A1c), blood 2023 024 [email or web address] In-Office Order, Internal Use Only DO Not Attach Compendium DO Not Attach Compendium, Do Not Delete/merge, [id number] 4 17:07:40 HbA1c (hemoglob in A1c), blood 2023 024 [place] [id number] In-Office Order, Internal Use Only DO Not Attach Compendium DO Not Attach Compendium, Do Not Delete/merge, [id number] 4 17:09:26 lipid panel, serum 2023 024 [facility], [address] [place] [address], [address], [place], [address], 4 07:14:38 CMP, serum or plasma 2023 024 [facility], [address] [facility], [address], [place], [address], 4 07:14:39 HbA1c (hemoglob in A1c), blood 2023 024 [place] [id number] In-Office Order, Internal Use Only DO Not Attach Compendium DO Not Attach Compendium, Do Not Delete/merge, [id number] 4 15:53:39 TSH + free T4, serum 2023 024 [facility], [address] [facility], [address], [place], [address], 4 08:33:20 noninvasi ve colorecta l cancer DNA + occult blood screening , QL, stool 2022 023 [place] [address] [facility], [address] [facility], [address], [place], [address], 3 16:47:04 Referral ophthalmo logy, retina specialis t referral 2023 024 [email or web address], [address] , [place], [address], 5 17:01:28 Procedures None recorded. Surgeries None recorded. Imaging XR, knee, 3 view 2023 024 [email or web address], [address], [place], [address], 5 16:51:42 Medication Orders butalbita l-acetami nophen-ca ffeine 50 mg-325 mg-40 mg tablet 2024 025 [place] [address] [facility] #54489, [address], [place], [place], [id number], 5 15:38:43 amoxicill in 500 mg capsule 11/07/ 2024 11/07/2 024 [email or web address] [facility] #08465, [address], [place], [place], [id number], 4 16:59:35 butalbita l-acetami nophen-ca ffeine 50 mg-325 mg-40 mg tablet 2023 [facility] #40508, [address], [place], [place], [id number], 4 17:07:57 Basaglar KwikPen U-100 Insulin 100 unit/mL (3 mL) subcutane ous 2023 024 [facility] #78603, [address], [place], [place], [id number], 4 17:07:47 Farxiga 10 mg tablet 2023 024 [facility] #07017, [address], [place], [place], [id number], 4 17:10:13 Basaglar KwikPen U-100 Insulin 100 unit/mL (3 mL) subcutane ous 2023 024 [facility] #97171, [address], [place], [place], [id number], 4 17:09:29 ibuprofen 600 mg tablet 2023 024 [facility] #17868, [address], [place], [place], [id number], 4 17:04:50 Basaglar KwikPen U-100 Insulin 100 unit/mL (3 mL) subcutane ous 2023 024 [facility] #79350, [address], [place], [place], [id number], 15:53:29 alcohol swabs 2023 [facility] #59442, [address], [place], [place], [id number], 15:53:29 famotidin e 20 mg tablet 2023 [facility] #65024, [address], [place], [place], [id number], 15:53:31 apixaban 5 mg tablet 2023 [facility] #49616, [address], [place], [place], [id number], 15:53:30 pregabali n 150 mg capsule 2023 [facility] #12332, [address], [place], [place], [id number], 15:53:32 Patient TargetsNo targets recorded. Patient Instructions Encounter Date Encounter Id Patient Instructions Last Modified By Organization Details Last Modified Time 07/14/2024 [id number] back care and preventing injuries: care instructions [email or web address] Not available 07/14/2024 15:53:24 gastroesophageal reflux disease (GERD): care instructions [email or web address] Not available 07/14/2024 15:53:23 high cholesterol : care instructions Not available 07/14/2024 15:53:23 hypothyroidism: care instructions [email or web address] Not available 07/14/2024 15:53:23 neuropathic pain : care instructions [email or web address] Not available 07/14/2024 15:53:23 08/25/2024 [id number] A healthy lifest yle: care instructions Not available 08/25/2024 18:15:58 learning about t ype 2 diabetes [email or web address] Not available 08/25/2024 17:09:20 type 2 diabetes: care instructions [email or web address] Not available 08/25/2024 17:09:20 10/06/2024 [id number] headache: care instructions Not available 10/06/2024 17:07:40 learning about t ype 2 diabetes [email or web address] Not available 10/06/2024 16:57:54 type 2 diabetes: care instructions Not available 10/06/2024 16:57:54 Reason for Referral Ophthalmology, Retina Specia list Referral for Type 2 diabetes mellitus Recent Dx nonproliferative changes with macular edema, bilat Referring Physician: Juanito Elena, Internal Medicine, Encounter Date: 07/14/2024 Results Created Date Observation Date Name Description Value Unit Range Abnormal Flag Note LastModifiedBy Organization Detail LastModifiedTime 05/28/20 23 06/04/2023 COMPL IANCE DRUG JAKUB SIS, UR summary report (summary) FINAL ===== ===== ===== ===== ===== ===== ===== ===== ===== ===== ===== ===== ===== === TOXAS SURE COMP DRUG JAKUB SIS,U R ===== ===== ===== ===== ===== ===== ===== ===== ===== ===== ===== ===== ===== === Test Resul t Flag Units Drug Prese nt Alcoh ol, Ethyl >0.40 0 g/dL Sourc es of ethyl alcoh ol inclu de alcoh olic bever ages or as a ferme ntati on produ ct of gluco se; gluco se is prese nt in this speci men. The high carlos ntrat ion of ethyl alcoh ol and the prese nce of gluco se suppo rts ferme ntati on as the sourc e of ethyl alcoh ol in this speci men. ===== ===== ===== ===== ===== ===== ===== ===== ===== ===== ===== ===== ===== === Test Resul t Flag Units Ref Range Creat inine 94 mg/dL >=20 ===== ===== ===== ===== ===== ===== ===== ===== ===== ===== ===== ===== ===== === Decla red Medic ation s: Medic ation list was not provi ded. ===== ===== ===== ===== ===== ===== ===== ===== ===== ===== ===== ===== ===== === For clini rakesh consu ltati on, pleas e call . ===== ===== ===== ===== ===== ===== ===== ===== ===== ===== ===== ===== ===== === Not Available [facility] ([facility]) [address] [place], [address], 06/04/2023 15:11:00 05/28/20 23 06/04/2023 COMPL IANCE DRUG JAKUB SIS, UR pdf . Not Available [facility] ([facility]) [address] [place], [address], 06/04/2023 15:11:00 07/14/20 24 07/15/2024 LIPID PANEL cholesterol, total 350 mg/dL 100-19 9 above high normal Not Available [facility] ([facility]) [address] [place], [address], 07/15/2024 07:14:38 07/14/20 24 07/15/2024 LIPID PANEL triglyceride s 416 mg/dL 0-149 above high normal Not Available [facility] ([facility]) [address] [place], [address], 07/15/2024 07:14:38 07/14/20 24 07/15/2024 LIPID PANEL HDL cholesterol 64 mg/dL >39 Not Available [facility] ([facility]) [address] [place], [address], 07/15/2024 07:14:38 07/14/20 24 07/15/2024 LIPID PANEL VLDL cholesterol rakesh 86 mg/dL 5-40 above high normal Not Available [facility] ([facility]) [address] [place], [address], 07/15/2024 07:14:38 07/14/20 24 07/15/2024 LIPID PANEL LDL chol calc ([facility]) 200 mg/dL 0-99 above high normal Not Available [facility] ([facility]) [address] [place], [address], 07/15/2024 07:14:38 07/14/20 24 07/15/2024 LIPID PANEL LDL calc comment: COMMEN T Consi whitney evalu ating for Famil ial Hyper mallorie stero lemia (FH), if clini kamilah indic ated. Not Available [facility] ([facility]) [address] [place], [address], 07/15/2024 07:14:38 07/14/20 24 07/15/2024 COMP. METAB OLIC PANEL (14) glucose 437 mg/dL 70-99 above high normal Not Available [facility] ([facility]) [address] [place], [address], 07/15/2024 07:14:39 07/14/20 24 07/15/2024 COMP. METAB OLIC PANEL (14) BUN 18 mg/dL 6-24 Not Available [facility] ([facility]) [address] [facility] [place] [place], [address], 07/15/2024 07:14:39 07/14/20 24 07/15/2024 COMP. METAB OLIC PANEL (14) creatinine 0.78 mg/dL 0.57-1 .00 Not Available [facility] ([facility]) [address] [facility] [place], [address], 07/15/2024 07:14:39 07/14/20 24 07/15/2024 COMP. METAB OLIC PANEL (14) eGFR 91 mL/mi n/1.7 3 >59 Not Available [facility] ([facility]) [address] [facility] [place], [address], 07/15/2024 07:14:39 07/14/20 24 07/15/2024 COMP. METAB OLIC PANEL (14) BUN/creatini ne ratio 23 9-23 Not Available [facility] ([facility]) [address] [facility] [place], [address], 07/15/2024 07:14:39 07/14/20 24 07/15/2024 COMP. METAB OLIC PANEL (14) sodium 134 mmol/ L 134-14 4 Not Available [facility] ([facility]) [address] [facility] [place], [address], 07/15/2024 07:14:39 07/14/20 24 07/15/2024 COMP. METAB OLIC PANEL (14) potassium 4.5 mmol/ L 3.5-5. 2 Not Available [facility] ([facility]) [address] [facility] [place], [address], 07/15/2024 07:14:39 07/14/20 24 07/15/2024 COMP. METAB OLIC PANEL (14) chloride 97 mmol/ L 96-106 Not Available [facility] ([facility]) [address] [facility] [place], [address], 07/15/2024 07:14:39 07/14/20 24 07/15/2024 COMP. METAB OLIC PANEL (14) carbon dioxide, total 21 mmol/ L 20-29 Not Available [facility] ([facility]) [address] [facility], [place], [address], 07/15/2024 07:14:39 07/14/20 24 07/15/2024 COMP. METAB OLIC PANEL (14) calcium 9.8 mg/dL 8.7-10 .2 Not Available [facility] ([facility]) [address] [facility], [place], [address], 07/15/2024 07:14:39 07/14/20 24 07/15/2024 COMP. METAB OLIC PANEL (14) protein, total 7.2 g/dL 6.0-8. 5 Not Available [facility] ([facility]) [address] [facility], [place], [address], 07/15/2024 07:14:39 07/14/20 24 07/15/2024 COMP. METAB OLIC PANEL (14) albumin 4.2 g/dL 3.8-4. 9 Not Available [facility] ([facility]) [address] [facility], [place], [address], 07/15/2024 07:14:39 07/14/20 24 07/15/2024 COMP. METAB OLIC PANEL (14) globulin, total 3.0 g/dL 1.5-4. 5 Not Available [facility] ([facility]) [address] [facility], [place], [address], 07/15/2024 07:14:39 07/14/20 24 07/15/2024 COMP. METAB OLIC PANEL (14) bilirubin, total <0.2 mg/dL 0.0-1. 2 Not Available [facility] ([facility]) [address] [facility], [place], [address], 07/15/2024 07:14:39 07/14/20 24 07/15/2024 COMP. METAB OLIC PANEL (14) alkaline phosphatase 85 IU/L 44-121 Not Available [facility]) [address] [place], [address], 07/15/2024 07:14:39 07/14/20 24 07/15/2024 COMP. METAB OLIC PANEL (14) AST (SGOT) 13 IU/L 0-40 Not Available [facility] ([facility]) [address] [place], [address], 07/15/2024 07:14:39 07/14/20 24 07/15/2024 COMP. METAB OLIC PANEL (14) ALT (SGPT) 14 IU/L 0-32 Not Available [facility] ([facility]) [address] [place], [address], 07/15/2024 07:14:39 07/14/20 24 07/15/2024 TSH+F REE T4 TSH 2.400 uIU/m L 0.450- 4.500 Not Available [facility] ([facility]) [address] [place], [address], 07/15/2024 08:33:20 07/14/20 24 07/15/2024 TSH+F REE T4 T4,free(dire ct) 1.20 NG/dL 0.82-1 .77 Not Available [facility] ([facility]) [address] [place], [address], 07/15/2024 08:33:20 07/14/20 24 07/14/2024 HbA1c (hemo globi n A1c), blood HbA1c 13 Not Available In-Office Order Internal Use Only DO Not Attach Compendium DO Not Attach Compendium, Do Not Delete/merge, [id number] 07/14/2024 15:38:35 08/25/20 24 08/25/2024 HbA1c (hemo globi n A1c), blood HbA1c 12.6 Not Available In-Office Order Internal Use Only DO Not Attach Compendium DO Not Attach Compendium, Do Not Delete/merge, [id number] 08/25/2024 16:57:29 10/06/20 24 10/06/2024 HbA1c (hemo globi n A1c), blood HbA1c 11.7 Not Available In-Office Order Internal Use Only DO Not Attach Compendium DO Not Attach Compendium, Do Not Delete/merge, [id number] 10/06/2024 17:03:16 03/02/20 25 03/02/2025 influ peace virus A + B + SARS- CoV-2 (COVI D19) Ag panel , rapid IA, upper respi rator y speci men Flu A negati ve Not Available In-Office Order Internal Use Only DO Not Attach Compendium DO Not Attach Compendium, Do Not Delete/merge, [id number] 03/02/2025 15:32:05 03/02/20 25 03/02/2025 influ peace virus A + B + SARS- CoV-2 (COVI D19) Ag panel , rapid IA, upper respi rator y speci men Flu B negati ve Not Available In-Office Order Internal Use Only DO Not Attach Compendium DO Not Attach Compendium, Do Not Delete/merge, [id number] 03/02/2025 15:32:05 03/02/20 25 03/02/2025 influ peace virus A + B + SARS- CoV-2 (COVI D19) Ag panel , rapid IA, upper respi rator y speci men Rapid SARS CoV 2 Ag, QL IA, respiratory specimen negati ve Not Available In-Office Order Internal Use Only DO Not Attach Compendium DO Not Attach Compendium, Do Not Delete/merge, [id number] 03/02/2025 15:32:05 03/27/20 23 03/27/2023 CT, abdom en + pelvi s, w/o contr ast No observ ation record ed. [address], [place], [address], 04/01/2023 10:59:30 04/28/20 23 04/27/2023 XR, chest No observ ation record ed. [place] [address], [place], [address], 04/28/2023 15:54:47 04/28/20 23 04/27/2023 CT, abdom en + pelvi s, w/ contr ast No observ ation record ed. [place] [address], [place], [address], 04/28/2023 15:55:12 05/06/20 23 05/06/2023 imagi ng/di agnos tic resul t No observ ation record ed. [address] [facility] [address], [place], [address], 05/07/2023 12:10:51 05/06/20 23 05/06/2023 imagi ng/di agnos tic resul t No observ ation record ed. [address] [facility] [address], [place], [address], 05/07/2023 12:11:26 05/06/20 23 05/06/2023 imagi ng/di agnos tic resul t No observ ation record ed. [email or web address] [facility] [address], [place], [address], 05/07/2023 12:12:47 12/16/19 24 12/16/2023 CT, thora cic spine , w/o contr ast No observ ation record ed. [place] [address], [place], [address], 12/23/2023 05:50:31 12/23/19 24 12/23/2023 XR, chest , 2 view No observ ation record ed. [place] [address], [place], [address], 12/29/2023 18:02:45 09/30/20 24 09/30/2024 XR, chest , 2 view No observ ation record ed. [place] [address], [place], [address], 09/30/2024 17:56:07 09/30/20 24 09/30/2024 CT, angio gram, chest + abdom en + pelvi s, w/ contr ast No observ ation record ed. [place] [id number] [facility] [address], [place], [address], 10/04/2024 16:22:02 09/30/20 24 09/30/2024 exerc ise stres s test No observ ation record ed. [place] [id number] [facility] [address], [place], [address], 10/04/2024 16:24:37 09/30/20 24 09/30/2024 US, doppl er echoc ardio gram, w/ color flow No observ ation record ed. [place] [id number] [facility] [address], [place], [address], 10/04/2024 16:21:12 Result Notes None recorded. Problems Name Problem SNOMED Code Status Onset Date Resolution Date Notes Provider Name and Address Organization Details Recorded Time Pain of right shoulder joint 67724254249 608326 Active 2016 Not Available [facility] 15:15:39 Sleep apnea 84678418 Active 2017 Not Available [facility] 15:15:39 Pain in right hip joint 69024042492 9102 Active 2017 Not Available [facility] 15:15:39 Steatosis of liver 658109538 Active [address] 2018 Not Available [facility] 15:15:39 Type 2 diabetes mellitus 05802435 Active 2017 Not Available [facility] 15:15:39 Chronic idiopathi c constipat ion 33933687 Active 2017 Not Available [facility] 15:15:39 Acute sinusitis 48645264 Active 2017 Not Available [facility] 15:15:39 Muscle spasm of thoracic back 55667073794 9106 Active 2017 Not Available [facility] 1 15:15:39 Pain in lower limb 87834945 Active 2018 Not Available [facility] 1 15:15:39 Rectal pain 33929278 Active 2018 Not Available [facility] 1 15:15:39 Vaginitis 25147160 Active 2018 Not Available [facility] 1 15:15:[address] pylori gastroint estinal tract infection 996887601 Active 2018 Not Available [facility] 1 15:15:39 Disorder of scalp 010901890 Active 2018 Not Available [facility] 15:15:39 Hearing loss in left ear 94190896586 [address] Active 2018 Not Available [facility] 1 15:15:39 Pain of bilateral thighs 66479205700 185492 Active 2018 Not Available [facility] 1 15:15:39 Numbness and tingling sensation of skin 11898295855 2 Active 2018 Not Available [facility] 1 15:15:39 Impaired gastric emptying 518355993 Active 2018 Not Available [facility] 1 15:15:39 Acute bronchiti s 43564551 Active 2018 Not Available [facility] 1 15:15:39 Allergic rhinitis 70198223 Active 2018 Not Available [facility] 1 15:15:39 Neuropath y 566917034 Active 2018 Not Available [facility] 1 15:15:39 Bilateral acute deep vein thrombosi s of femoral veins 11567701685 9104 Active 2019 see ultrasoun d/ Duplex 04/30/2020 Not Available [facility] 15:15:38 Periphera l venous insuffici ency 19992960 Active 2019 see ultrasoun d 04/30/2020 . No DVT on 07/21/21 venous doppler Mike Victor PA-C Attn: [place], [address] , [place] [facility] 1 09:29:31 Deep venous thrombosi s of lower extremity 280778871 Active 2019 Not Available [facility] 1 15:15:39 Cramp in lower limb 274095838 Active 2019 Not Available [facility] 15:15:39 Pilonidal cyst 25076924 Active 2020 Not Available [facility] 1 15:15:39 SARS-CoV- 2 Active 2020 Not Available [facility] 15:15:39 Disorient ated 11538240 Active 2020 Not Available [facility] 15:15:39 Esophagit is 14131435 Active 2020 Not Available [facility] 15:15:39 Dysuria 48731334 Active 2020 Mike Victor PA-C Attn: Accounting ,[address] [place], [address] , [place] [facility] 1 16:29:52 CT of abdomen abnormal 92383641415 683896 Active 2020 Mike Victor PA-C Attn: Accounting ,[address] [place], [address] , [place] [facility] 1 16:36:12 Inguinal pain 000293333 Active 2020 Mike Victor PA-C Attn: Accounting ,[address] [place], [address] , [place] [facility] 1 17:25:56 Fracture of multiple ribs 6857954 Active 2021 Mike Victor PA-C Attn: Accounting ,[address] [place], [address] , [place] [facility] 2 10:05:19 Urine screening abnormal 673791152 Active 2021 Mike Victor PA-C Attn: Accounting ,[address], [place], [address] , [place] [facility] 2 11:42:39 Administr ation of pneumococ rakesh vaccine Active 2021 Mike Victor PA-C Attn: Accounting ,[address] [facility], [place], [address] , [place] [facility] 2 15:14:01 Administr ation of tetanus vaccine Active 2021 Mike Victor PA-C Attn: Accounting ,[address] [facility], [place], [address] , [place] [facility] 2 15:14:38 Lower back injury 143275709 Active 2021 Mike Victor PA-C Attn: Accounting ,[address] [facility], [place], [address] , [place] [facility] 2 12:57:28 Spondylos is 2242971 Active [address] cervical spine 08/25/2022 . also lumbar spondylos is same date Mike Victor PA-C Attn: Accounting ,[address] [facility], [place], [address] , [place] [facility] 2 17:28:47 Sinusitis 18925007 Active 2021 Juanito Elena MD Attn: Accounting ,[address] [facility], [place], [address] , [place] [facility] 2 10:36:35 Injury of musculosk eletal system 477507059 Active 2021 Juanito Elena MD Attn: Accounting ,[address] [facility], [place], [address] , [place] [facility] 2 10:37:33 Diabetes mellitus 41797331 Active Not Available [facility] 15:15:39 Hyperlipi demia 90013488 Active Not Available [facility] 15:15:39 Hypertens pancho disorder 76950464 Active Not Available [facility] 15:15:39 Nausea 219937372 Active Not Available [facility] 15:15:39 Gastroeso phageal reflux disease 076020196 Active Not Available [facility] 15:15:39 Obesity 785485150 Active Not Available [facility] 15:15:38 Hypothyro idism 17480869 Active Not Available [facility] 15:15:39 Headache 04297692 Active Not Available [facility] 15:15:39 Pain of left knee region 89298601871 4109 Active 2023 Juanito Elena MD Attn: Accounting ,[address] [facility], [place], [address] , [place] [facility] 4 16:58:06 Pain of ear 539994893 Active 2023 Juanito Elena MD Attn: Accounting ,[address] [facility], [place], [address] , [place] [facility] 4 16:53:38 Viral syndrome 109888897 Active 2024 Juanito Elena MD Attn: Accounting ,[address] [facility], [place], [address] , [place] [facility] 5 15:31:15 Bronchiti s 83919206 Active Not Available [facility] 15:15:39 Asthma 766891808 Active Not Available [facility] 15:15:39 Gastritis 7092843 Active Not Available [facility] 15:15:39 Left lower quadrant pain 946274005 Active Not Available [facility] 15:15:39 Anxiety 91185052 Active Not Available [facility] 15:15:39 Acute pharyngit is 269340704 Active Not Available [facility] 15:15:38 Vaginitis and vulvovagi nitis Active Not Available [facility] 15:15:39 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 Active Not Available [facility] 15:15:39 Low back pain 277780997 Active Not Available [facility] 15:15:39 Painful urging to urinate 68496993 Active Not Available [facility] 15:15:39 Dental abscess 530874015 Active Not Available [facility] 15:15:38 Hand eczema 613995427 Active Not Available [facility] 15:15:39 Inflammat ion of joint of shoulder region 016022425 Active 2016 Not Available [facility] 15:15:39 Sciatica 44170153 Active 2016 Not Available [facility] 15:15:39 Administr ation of influenza vaccine Active 2016 Not Available [facility] 15:15:39 Problem Notes None recorded. Procedures Surgical History Date Name Laterality Status Provider Name and Address Organization Details Recorded Time Caesarean Section completed Alayna Leger [place] [facility] 02/09/2015 14:44:14 Imaging Results Imaging Date Name Status LastModified by Organiz ation Details LastModified Time 03/27/2023 CT, abdomen + pelvis, w/o contrast completed [address], [address], 04/01/2023 10:59:30 04/27/2023 XR, chest completed [address], [address], 04/28/2023 15:54:47 04/27/2023 CT, abdomen + pelvis, w/ contrast completed [address], [address], 04/28/2023 15:55:12 05/06/2023 imaging/diagn ostic result completed [email or web address] [facility] [address], [place], [address], 05/07/2023 12:10:51 05/06/2023 imaging/diagn ostic result completed [facility] [address], [place], [address], 05/07/2023 12:11:26 05/06/2023 imaging/diagn ostic result completed [address] [facility] [address], [place], [address], 05/07/2023 12:12:47 12/16/2023 CT, thoracic spine, w/o contrast completed [address] [place] [address], [address], 12/23/2023 05:50:31 12/23/2023 XR, chest, 2 view completed [address], [address], 12/29/2023 18:02:45 09/30/2024 XR, chest, [address] view [address], [address], 09/30/2024 17:56:07 09/30/2024 CT, angiogram, chest + abdomen + pelvis, w/ contrast completed [address], [address], 10/04/2024 16:22:02 09/30/2024 exercise stress test completed [address], [id number], 10/04/2024 16:24:37 09/30/2024 US, doppler echocardiogra m, w/ color flow completed [address], [id number], 10/04/2024 16:21:12 Procedure Notes None recorded. Medical Equipment None Reported. Allergies No known drug allergies Medications Name Sig Start Date Stop Date Status Note LastModified by Organization Details LastModified Time Prescript ion - Renewal 03/03 completed Not Available Not Available Not Available compound bucket 11/11 completed Not Available Not Available Not Available Prescript ion - Prior Authoriza tion Request 03/03 completed Not Available Not Available Not Available losartan 50 mg tablet TAKE 1 TABLET BY MOUTH EVERY MORNING 11/11 completed Not Available Not Available Not Available cyclobenz aprine 10 mg tablet TAKE 1 TABLET BY MOUTH EVERY 8 HOURS FOR 7 DAYS NEEDED FOR MUSCLE SPASM active Not Available Not Available No t Available amoxicill in 500 mg capsule TAKE 1 CAPSULE BY MOUTH EVERY 8 HOURS active Not Available Not Available No t Available cefazolin 1 gram solution for injection 11/11 completed Not Available Not Available Not Available pioglitaz one 15 mg tablet TAKE 1 TABLET BY MOUTH EVERY DAY IN THE MORNING 10/21 completed Not Available Not Available Not Available atorvasta tin 40 mg tablet 03/03 completed Not Available Not Available Not Available methocarb geraldo 500 mg tablet TAKE 1 TABLET BY MOUTH THREE TIMES DAILY 03/03 completed Not Available Not Available Not Available silver sulfadiaz ine 1 % topical cream 11/11 completed Not Available Not Available Not Available Qvar 80 mcg/actua tion Metered Aerosol oral inhaler 03/03 completed Not Available Not Available Not Available promethaz ine-DM 6.25 mg-15 mg/5 mL oral syrup TAKE 5 ML BY MOUTH EVERY 4 HOURS FOR 10 DAYS NEEDED 11/11 completed Not Available Not Available Not Available acetamino phen 325 mg tablet 11/11 completed Not Available Not Available Not Available doxycycli ne hyclate 100 mg capsule active Not Available Not Available Not Available atorvasta tin 20 mg tablet take 1 tablet by mouth at bedtime 03/03 completed Not Available Not Available Not Available clindamyc in HCl 300 mg capsule TAKE 1 CAPSULE BY MOUTH EVERY 6 HOURS FOR 7 DAYS 08/25 completed Not Available Not Available Not Available albuterol sulfate 2.5 mg/3 mL (0.083 %) solution for nebulizat ion INHALE 3ML(1 VIAL) THREE TIMES DAILY BY NEBULIZE R NEEDED 11/12 completed Not Available Not Available Not Available polyethyl roque glycol 3350 17 gram oral powder packet 03/25 completed Not Available Not Available Not Available cetirizin e 10 mg tablet TAKE 1 TABLET BY MOUTH EVERY DAY 03/03 completed Not Available Not Available Not Available atorvasta tin 10 mg tablet 03/25 completed Not Available Not Available Not Available azithromy flor 250 mg tablet TK 2 TS PO ON DAY 1, THEN TK 1 T PO D FOR 4 DAYS 03/03 completed Not Available Not Available Not Available ibuprofen 800 mg tablet TAKE 1 TABLET BY MOUTH TWICE DAILY FOR 10 DAYS. 04/17 completed on Eliquis Not Available Not Available Not Available tizanidin e 4 mg tablet TAKE 1 TABLET BY MOUTH EVERY 8 HOURS NEEDED 11/11 completed Not Available Not Available Not Available fluconazo le 150 mg tablet TAKE 1 TABLET BY MOUTH 3 TIMES A WEEK FOR 7 DAYS 03/03 completed Not Available Not Available Not Available benzonata te 200 mg capsule Take 1 capsule 3 times a day by oral route for 10 days. 03/03 completed Not Available Not Available Not Available acetamino phen 120 mg-codein e 12 mg/5 mL oral solution active Not Available Not Available Not Available sumatript an 100 mg tablet TAKE 1 TABLET BY MOUTH AT ONSET OF HEADACHE AND MAY REPEAT IN TWO HOURS 03/03 completed Not Available Not Available Not Available hydrocodo ne 5 mg-acetam inophen 325 mg tablet TAKE 1 TABLET BY MOUTH EVERY 6 HOURS NEEDED FOR PAIN 08/25 completed Not Available Not Available Not Available hydrocort isone 1 % topical ointment APPLY A THIN LAYER TO THE AFFECTED AREA(S) BY TOPICAL ROUTE 2 TIMES PER DAY 03/03 completed Not Available Not Available Not Available lisinopri l 20 mg tablet TAKE 1 TABLET BY MOUTH EVERY MORNING 03/03 completed Not Available Not Available Not Available ondansetr on HCl 4 mg tablet TAKE 1 TABLET BY MOUTH EVERY 8 HOURS FOR 4 DAYS NEEDED FOR NAUSEA OR VOMITING 08/25 completed Not Available Not Available Not Available famotidin e 40 mg tablet Take 1 tablet every day by oral route before meals for 30 days. 11/11 completed Not Available Not Available Not Available prednison e 20 mg tablet 2 tabs twice daily for 2 days ; 1 tab twice daily for 5 days , 0.5 tab twice daily for 2 days ;0.5 tab for 1 day 10/21 completed Not Available Not Available Not Available terconazo le 0.8 % vaginal cream 03/03 completed Not Available Not Available Not Available metronida zole 250 mg tablet 11/11 completed Not Available Not Available Not Available Lantus U-100 Insulin 100 unit/mL subcutane ous solution INJECT 22 UNITS SUBCUTEN OUSLY AT BEDTIME. DISCARD OPEN VIAL AFTER 28 DAYS 05/19 completed she stopped it because levels were down Not Available Not Available Not Available penicilli n V potassium 500 mg tablet 03/03 completed Not Available Not Available Not Available topiramat e 25 mg tablet 3 tabs at bedtime to prevent headache s 03/03 completed Not Available Not Available Not Available metronida zole 500 mg tablet TAKE 1 TABLET BY MOUTH TWICE DAILY FOR 7 DAYS 11/11 completed Not Available Not Available Not Available acetamino phen 300 mg-codein e 30 mg tablet Take 1 tablet twice a day by oral route as needed for 30 days. 10/25 completed Not Available Not Available Not Available prochlorp erazine maleate 10 mg tablet Take 1 tablet twice a day by oral route as needed for 3 days. 03/03 completed Not Available Not Available Not Available ciproflox acin 500 mg tablet Take 1 tablet every 12 hours by oral route for 10 days. 01/18 completed Not Available Not Available Not Available sulfameth oxazole 800 mg-trimet hoprim 160 mg tablet TAKE 1 TABLET BY MOUTH EVERY 12 HOURS 07/14 completed Not Available Not Available Not Available tramadol 50 mg tablet TAKE 1 TABLET BY MOUTH EVERY NIGHT AT BEDTIME 11/11 completed Not Available Not Available Not Available acetamino phen 500 mg tablet TAKE 1 TABLET BY MOUTH EVERY 6 HOURS NEEDED FOR PAIN OR FEVER 03/03 completed Not Available Not Available Not Available butalbita l-acetami nophen-ca ffeine 50 mg-325 mg-40 mg tablet Take one tablet at onset of headache . May repeat in30-60 mins if no improvem ent 2024 active Not Available Not Available Not Avai lable amoxicill in 500 mg tablet TAKE 1 TABLET BY MOUTH THREE TIMES DAILY FOR 7 DAYS. 04/17 completed Not Available Not Available Not Available Depo-Medr ol 80 mg/mL suspensio n for injection 03/25 completed Not Available Not Available Not Available oxycodone -acetamin ophen 5 mg-325 mg tablet TAKE 1 TABLET BY MOUTH EVERY 6 HOURS NEEDED FOR PAIN 11/11 completed Not Available Not Available Not Available hydrocort isone 2.5 % topical cream with perineal applicato r 11/11 completed Not Available Not Available Not Available amoxicill in 875 mg tablet 07/03 completed Not Available Not Available Not Available famotidin e 20 mg tablet TAKE 1 TABLET BY MOUTH TWICE DAILY active Not Available Not Available No t Available amitripty line 25 mg tablet 11/11 completed Not Available Not Available Not Available metoclopr amide 5 mg tablet 11/11 completed Not Available Not Available Not Available DOK 100 mg capsule Take 1 capsule twice a day by oral route for 30 days. 11/11 completed Not Available Not Available Not Available ropinirol e 0.25 mg tablet TAKE 3 TABLETS BY MOUTH EVERY DAY AT BEDTIME 11/11 completed Not Available Not Available Not Available dicyclomi ne 20 mg tablet TAKE 1 TABLET BY MOUTH TWICE DAILY 11/11 completed Not Available Not Available Not Available amoxicill in 250 mg/5 mL oral suspensio n active Not Available Not Available Not Available baclofen 10 mg tablet Take 1 tablet(s ) 3 times a day by oral route as needed for 30 days. 11/11 completed Not Available Not Available Not Available doxycycli ne monohydra te 100 mg capsule 11/11 completed Not Available Not Available Not Available triamcino lone acetonide 40 mg/mL suspensio n for injection Take 40 mg by injectio n route for 1 day. 11/11 completed Not Available Not Available Not Available cephalexi n 500 mg capsule 03/25 completed Not Available Not Available Not Available pantopraz ole 40 mg tablet,de layed release TAKE 1 TABLET BY MOUTH DAILY 11/11 completed Not Available Not Available Not Available hyoscyami ne sulfate 0.125 mg tablet 11/11 completed Not Available Not Available Not Available oseltamiv ir 75 mg capsule TAKE 1 CAPSULE BY MOUTH EVERY 12 HOURS FOR 5 DAYS 08/25 completed Not Available Not Available Not Available metformin 1,000 mg tablet TAKE 1 TABLET BY MOUTH TWICE DAILY 03/03 completed Not Available Not Available Not Available levothyro xine 125 mcg tablet Take 1 tablet every day by oral route in the morning for 30 days. 2014 active Not Available Not Available Not Avai lable triamcino lone acetonide 0.1 % topical ointment APPLY THIN LAYER EXTERNAL LY TO THE AFFECTED AREA TWICE DAILY 11/11 completed Not Available Not Available Not Available ranitidin e 150 mg tablet Take 1 tablet twice a day by oral route before meals for 30 days. active Not Available Not Available No t Available lidocaine 5 % topical patch APPLY TOPICALL Y TO SKIN ON LOWER BACK ONCE DAILY active Not Available Not Available No t Available ibuprofen 400 mg tablet 03/25 completed Not Available Not Available Not Available metoprolo l tartrate 50 mg tablet 03/25 completed Not Available Not Available Not Available diclofena c potassium 50 mg tablet 03/03 completed Not Available Not Available Not Available gabapenti n 300 mg capsule 2 caps THREE TIMES DAILY 08/31 completed Not Available Not Available Not Available omeprazol e 20 mg capsule,d elayed release TAKE ONE CAPSULE BY MOUTH TWICE DAILY 30 MINUTES BEFORE MEALS(FO OD) 11/11 completed Not Available Not Available Not Available monteluka st 10 mg tablet 11/11 completed Not Available Not Available Not Available Marianne Bismuth 262 mg tablet Take 1 tablet 4 times a day by oral route for 30 days. 11/11 completed Not Available Not Available Not Available lisinopri l 5 mg tablet 03/03 completed Not Available Not Available Not Available hydrochlo rothiazid e 25 mg tablet TAKE 1 TABLET BY MOUTH EVERY DAY active Not Available Not Available No t Available hydrocort isone 10 mg tablet 11/11 completed Not Available Not Available Not Available diazepam 10 mg tablet 11/11 completed Not Available Not Available Not Available ibuprofen 600 mg tablet TAKE 1 TABLET BY MOUTH THREE TIMES DAILY FOR 3 DAYS 10/06 completed Not Available Not Available Not Available polyethyl roque glycol 3350 17 gram/dose oral powder TAKE 17G EVERY DAY BY ORAL ROUTE NEEDED FOR 4 DAYS 11/11 completed Not Available Not Available Not Available levofloxa flor 500 mg tablet 03/03 completed Not Available Not Available Not Available insulin syringe U-100 with needle 1 mL 30 gauge x 7/16 USE DIRECTED 03/03 completed Not Available Not Available Not Available methylpre dnisolone 4 mg tablets in a dose pack FOLLOW PACKAGE DIRECTIO NS active Not Available Not Available No t Available albuterol sulfate HFA 90 mcg/actua tion aerosol inhaler INHALE 2 PUFFS BY MOUTH THREE TIMES DAILY NEEDED active Not Available Not Available No t Available pioglitaz one 30 mg tablet TAKE 1 TABLET BY MOUTH EVERY DAY IN THE MORNING 08/25 completed Not Available Not Available Not Available ondansetr on 4 mg disintegr ating tablet DISSOLVE 1 TABLET ON THE TONGUE EVERY 6 HOURS NEEDED FOR NAUSEA OR VOMITING 11/11 completed Not Available Not Available Not Available cefdinir 300 mg capsule TAKE 1 CAPSULE BY MOUTH EVERY 12 HOURS FOR 10 DAYS 07/14 completed Not Available Not Available Not Available fluticaso ne propionat e 50 mcg/actua tion nasal spray,tg pension SHAKE LIQUID AND USE 2 SPRAYS IN EACH NOSTRIL DAILY active Not Available Not Available No t Available loratadin e 10 mg tablet Take 1 tablet every day by oral route for 30 days. 11/11 completed Not Available Not Available Not Available naproxen 500 mg tablet TAKE 1 TABLET BY MOUTH TWICE DAILY 08/25 completed Not Available Not Available Not Available diazepam 5 mg tablet TAKE 1 TABLET BY MOUTH AT BEDTIME NEEDED FOR MODERATE PAIN 03/03 completed Not Available Not Available Not Available metoclopr amide 10 mg tablet Take 1 tablet 4 times a day by oral route before meals for 14 days. 11/11 completed Not Available Not Available Not Available amoxicill in 875 mg-potass ium clavulana te 125 mg tablet TAKE 1 TABLET BY MOUTH EVERY 12 HOURS FOR 7 DAYS 07/14 completed Not Available Not Available Not Available hydroxyzi ne pamoate 25 mg capsule TAKE 1 CAPSULE BY MOUTH THREE TIMES DAILY NEEDED 03/25 completed Not Available Not Available Not Available neomycin- polymyxin -hydrocor t 3.5 mg-10,000 unit/mL-1 % ear drops,tg p 03/03 completed Not Available Not Available Not Available Concerta 27 mg tablet,ex tended release TAKE 1 TABLET BY MOUTH EVERY MORNING 11/11 completed Not Available Not Available Not Available ezetimibe 10 mg tablet TAKE 1 TABLET BY MOUTH EVERY DAY IN THE MORNING 11/11 completed Not Available Not Available Not Available Ciprodex 0.3 %-0.1 % ear drops,tg pension 11/11 completed Not Available Not Available Not Available rosuvasta tin 20 mg tablet TAKE 1 TABLET BY MOUTH EVERY DAY IN THE MORNING 10/21 completed Not Available Not Available Not Available rosuvasta tin 40 mg tablet TAKE 1 TABLET BY MOUTH EVERY DAY IN THE MORNING active Not Available Not Available No t Available Alcohol Prep Pads USE TWICE DAILY active Not Available Not Available No t Available metoprolo l tartrate 25 mg tablet 11/11 completed Not Available Not Available Not Available hydrocodo ne 7.5 mg-acetam inophen 325 mg/15 mL oral solution active Not Available Not Available Not Available nitrofura ntoin monohydra te/macroc rystals 100 mg capsule TAKE 1 CAPSULE BY MOUTH EVERY 12 HOURS FOR 5 DAYS 11/11 completed Not Available Not Available Not Available duloxetin e 30 mg capsule,d elayed release Take 1 capsule every day by oral route in the evening for 7 days. 11/11 completed Not Available Not Available Not Available duloxetin e 60 mg capsule,d elayed release TAKE 1 CAPSULE BY MOUTH EVERY DAY IN THE EVENING 08/25 completed Not Available Not Available Not Available lactulose 10 gram/15 mL oral solution 11/11 completed Not Available Not Available Not Available omega-3 acid ethyl esters 1 gram capsule TAKE 2 CAPSULES BY MOUTH TWICE DAILY WITH MEALS 11/11 completed Not Available Not Available Not Available fenofibra te 160 mg tablet Take 1 tablet every day by oral route in the morning for 30 days. 2014 active Not Available Not Available Not Avai lable pregabali n 150 mg capsule TAKE 1 CAPSULE BY MOUTH TWICE DAILY active Not Available Not Available No t Available Levemir U-100 Insulin 100 unit/mL subcutane ous solution Inject 15 units every day by subcutan eous route at bedtime for 30 days. 03/03 completed Not Available Not Available Not Available Januvia 100 mg tablet TAKE 1 TABLET BY MOUTH EVERY DAY IN THE MORNING 08/25 completed Not Available Not Available Not Available diclofena c 1 % topical gel 11/11 completed Not Available Not Available Not Available Element Blood Glucose Meter kit USE TWO TIMES DAILY 03/25 completed Not Available Not Available Not Available Dulera 200 mcg-5 mcg/actua tion HFA aerosol inhaler INHALE 2 PUFFS BY MOUTH TWICE DAILY 11/11 completed Not Available Not Available Not Available OneTouch Verio test strips TEST BLOOD SUGARS THREE TIMES DAILY active Not Available Not Available No t Available lancets 30 gauge 03/03 completed Not Available Not Available Not Available Linzess 145 mcg capsule 0NCE A DAY 11/11 completed Not Available Not Available Not Available Eliquis 5 mg tablet TAKE 1 TABLET BY MOUTH TWICE DAILY active Not Available Not Available No t Available Safety Seal Lancets 28 gauge TEST BLOOD SUGAR TWO TIMES DAILY 03/03 completed 100 Not Available Not Available Not Available Farxiga 10 mg tablet TAKE 1 TABLET BY MOUTH EVERY DAY IN THE MORNING 2024 active Not Available Not Available Not Avai lable Pennsaid 20 mg/gram/a ctuation (2 %) topical soln in metered-d ose pump APPLY 2 PUMPS (40 MG) TO THE AFFECTED feet and KNEE(S) BY TOPICAL ROUTE 2 TIMES PER DAY 11/11 completed Not Available Not Available Not Available Levemir FlexTouch U-100 Insulin 100 unit/mL (3 mL) subcutane ous pen Inject 20 units every day by subcutan eous route at bedtime for 30 days. 03/25 completed Not Available Not Available Not Available Basaglar KwikPen U-100 Insulin 100 unit/mL (3 mL) subcutane ous ADMINIST ER 30 UNITS UNDER THE SKIN TWICE DAILY active Not Available Not Available No t Available TRUEplus Pen Needle 32 gauge x 5/32 INJECT DIRECTED active Not Available Not Available No t Available Steglatro 15 mg tablet TAKE 1 TABLET BY MOUTH EVERY DAY IN THE MORNING 11/11 completed Not Available Not Available Not Available Lidocaine Pain Relief 4 % topical patch 03/03 completed Not Available Not Available Not Available OneTouch Delica Plus Lancet 33 gauge DIRECTED THREE TIMES DAILY 2024 active Not Available Not Available Not Avai franck Juanramona ODT 75 mg disintegr ating tablet 03/03 completed Not Available Not Available Not Available OneTouch Verio Reflect Meter FOLLOW PACKAGE DIRECTIO NS active Not Available Not Available No t Available Vitals Date Recorded Body height Provider Name an d Address Organization Details Last Updated DateTime 03/03/2023 152.4 cm Chantell Hall [facility] 3 15:48:47 Date Recorded Body height Body mass index (BMI) Body weight Oxygen saturation Oxygen saturation in Arterial blood by Pulse oximetry Heart rate Systolic blood pressure Diastolic blood pressure Provider Name and Address Organization Details Last Updated DateTime 4 152.4 cm 30.3 kg/m2 06987.8 2 g 98 % 98 % 80 /min 132 mm[Hg] 86 mm[Hg] Chantell Hall [facility] 4 15:13:51 Date Recorded Body height Heart rate Oxygen saturation Oxygen saturation in Arterial blood by Pulse oximetry Body mass index (BMI) Body weight Systolic blood pressure Diastolic blood pressure Provider Name and Address Organization Details Last Updated DateTime 4 152.4 cm 83 /min 95 % 95 % 31.3 kg/m2 02574.2 1 g 149 mm[Hg] 93 mm[Hg] Salomón Victor [facility] 4 16:30:33 Date Recorded Body height Body mass index (BMI) Body weight Heart rate Oxygen saturation Oxygen saturation in Arterial blood by Pulse oximetry Systolic blood pressure Diastolic blood pressure Provider Name and Address Organization Details Last Updated DateTime 4 152.4 cm 32 kg/m2 15612.1 5 g 74 /min 98 % 98 % 124 mm[Hg] 76 mm[Hg] Salomón Victor [facility] 4 16:01:43 Date Recorded Body height Provider Name an d Address Organization Details Last Updated DateTime 03/02/2025 152.4 cm Salomón Victor [facility] 03/02/2025 14:57:40 Social History Question Answer Notes LastModified by Organizat ion Details LastModified Time Tobacco Smoking Status Never Smoker Alayna Leger MA null, [facility] 02/09/2015 14:47:36 Do You Have An Advance Directive? No Information not available 02/09/2015 What Is Your Level Of Alcohol Consumption? None Information not available 02/09/2015 Are You Blind Or Do You Have Difficulty Seeing? No Information not available 02/09/2015 What Is Your Level Of Caffeine Consumption? Heavy Information not available 02/09/2015 How Much Tobacco Do You Chew? None Information not available 02/09/2015 Are You Currently Employed? Yes Information not available 03/04/2021 Are You Deaf Or Do You Have Serious Difficulty Hearing? No Information not available 02/09/2015 What Type Of Diet Are You Following? REGULAR Information not available 02/09/2015 Education 9 Information no t available 02/09/2015 What Is Your Occupation? [employer], [employer], [employer], Hand Information not available 02/09/2015 Are There Any Guns Present In Your Home? No Information not available 02/09/2015 Hard Of Hearing Or Deaf In One Or Both Ears? No Information not available 02/09/2015 Legally Blind In One Or Both Eyes? No Information no t available 02/09/2015 Marital Status Informatio n not available 02/09/2015 What Was The Date Of Your Most Recent Tobacco Screening? 03/02/2025 Information not available 03/02/2025 Performs Monthly Self-breast Exam? Yes Information no t available 02/09/2015 What Is Your Relationship Status? Single Information not available 03/04/2021 Do You Use Your Seat Belt Or Car Seat Routinely? Yes Information not available 03/04/2021 Seat Belts Used Routinely Yes Information not available 02/09/2015 Are You Sexually Active? No Information not available 03/04/2021 Smoke Alarm In Home Yes Information not available 02/09/2015 Do You Have Smoke And Carbon Monoxide Detectors In Your Home? Yes Information not available 03/04/2021 Are You Passively Exposed To Smoke? Yes Information no t available 03/04/2021 How Much Tobacco Do You Smoke? No Information not available 02/09/2015 General Stress Level Low Information not available 02/09/2015 Do You Feel Stressed (tense, Restless, Nervous, Or Anxious, Or Unable To Sleep At Night)? [id number] Information not available 03/04/2021 Do You Use Any Illicit Or Recreational Drugs? No Information not available 03/04/2021 Do You Use Sunscreen Routinely? No Information not available 02/09/2015 Has Tobacco Cessation Counseling Been Provided? Yes Information not available 09/13/2021 On What Date Was Tobacco Cessation Counseling Provided? 03/02/2025 Information not available 03/02/2025 How Many Years Have You Smoked Tobacco? 0 [email or web address] Information not available 07/22/2018 Do You Or Have You Ever Used Any Other Forms Of Tobacco Or Nicotine? No [email or web address] Information not available 03/03/2023 Sex: Female Functional Status Question Answer Note LastModified by Organization D etails LastModified Time Do you have difficulty walking or climbing stairs? No Information not available 02/09/2015 Do you have difficulty doing errands alone? No Information not available 02/09/2015 Are you able to care for yourself? Yes Information n ot available 03/04/2021 Do you have difficulty dressing or bathing? No Information not available 02/09/2015 What is your exercise level? None Information not available 02/09/2015 Mental Status Question Answer Note LastModified by Organization D etails LastModified Time Do you have difficulty concentrating, remembering or making decisions? No Information no t available 02/09/2015 Family History Relationship Description Onset Age of this Age Resolved Age Notes LastModified by Organization Details LastModified Time Mother Diabetes mellitus Not available 2014 16:59:59 Mother Hypercholest erolemia Not available 2014 16:59:59 Mother Hypertensive disorder Not available 2014 16:59:59 Sister Diabetes mellitus Not available 2014 16:59:59 Sister Hypercholest erolemia Not available 2014 16:59:59 Sister Hypertensive disorder Not available 2014 16:59:59 Medical History Condition Response High Blood Pressure Y High Cholesterol Y Headaches Y Diabetes Y Gynecological HistoryNo gynecological history recorded. Obstetrics History GPAL:G 0 P 0 0 0 0 Immunizations Vaccine Type Date Status Note Provider Nam e and Address Organization Details Recorded Time Influenza, split virus, quadrivalent, preservative 0 completed Not Available [facility] 07/03/2021 15:15:40 COVID-19, mRNA, LNP-S, PF, 100 mcg/0.5mL dose or 50 mcg/0.25mL dose 1 completed Debbie Del Castillo MA null, [place] - [facility] 05/22/2022 14:56:23 COVID-19, mRNA, LNP-S, PF, 100 mcg/0.5mL dose or 50 mcg/0.25mL dose 2 completed Debbie Del Castillo MA null, [place] - [facility] 05/22/2022 14:56:34 Influenza, split virus, quadrivalent, preservative 6 completed Not Available [facility] 12/17/2019 02:47:51 Influenza, split virus, quadrivalent, preservative 7 completed Not Available [facility] 12/17/2019 02:34:24 Influenza, split virus, quadrivalent, PF 8 completed Not Available [facility] 12/17/2019 02:39:54 Influenza, split virus, quadrivalent, preservative 9 completed Not Available [facility] 12/17/2019 02:38:15 Influenza, split virus, quadrivalent, preservative 1 completed Debbie Del Castillo [place] null, [place] - [facility] 09/13/2021 16:48:37 Tdap 2 completed Debbie Del [place] [facility] 05/22/2022 15:37:06 Pneumococcal conjugate PCV 13 2 completed JOEL [place] [facility] 05/22/2022 15:40:48 COVID-19, mRNA, LNP-S, PF, 100 mcg/0.5mL dose or 50 mcg/0.25mL dose 2 completed JOEL [place]reg[place], [place] - [facility] 07/30/2022 10:34:35 Past Encounters Encounter ID Performer Location Encounter Start Date Encounter Closed Date Diagnosis/Indication Diagnosis SNOMED-CT Code Diagnosis ICD10 Code Diagnosis Note [id number] JOEL Cota (Adult Med) [address] [place] [address] 73314-793 0 02/09/2015 14:17:40 02/09/2015 15:23:02 Diabetes mellitus 13859065 Hyperlipidemia 66220212 Hypertensive disorder 95428727 Nausea 198512145 Gastroesop hageal reflux disease 920718731 Obesity 175991910 Hypothyroidism 83345661 Headache 63483295 [id number] JOEL Cota (Adult Med) [address] [place] [address] 20497-070 0 04/16/2015 15:29:59 04/16/2015 17:37:49 Hypertensive disorder 70484514 Nausea 252435735 Bronchitis 58557199 [id number] АННА Soria (Adult Med) [address] [place] [address] 17293-268 0 11/09/2015 15:12:01 11/09/2015 15:30:54 Asthma 252762807 J45.909 Gastritis 1901938 K29.70 [id number] АННА Soria (Adult Med) [address] [place] [address] 03861-869 0 02/25/2016 12:01:15 02/25/2016 12:54:52 Asthma 673787972 J45.909 Diabetes mellitus 718597 09 E11.9 Gastroesop hageal reflux disease 378493968 K21.9 Headache 86269520 R51 Hyperlipidemia 65669320 E78.5 Hypertensive disorder 38 172737 I10 Hypothyroidism 77077415 E03.9 Obesity 343898074 E66.9 Left lower quadrant pain 359048495 R10.32 Anxiety 48629462 F41.9 [id number] АННА Soria (Adult Med) [address] [place] [address] 48932-726 0 06/20/2016 15:53:31 06/20/2016 16:20:52 Acute pharyngitis 850029577 J02.9 Vaginitis and vulvovaginitis 675605015 N76.0 Bladder mu scle dysfunction - overactive 876354391 N32.81 Low back pain 995629894 M54.5 Asthma 208453269 J45.90 9 Painful ur ging to urinate 56594513 R30.0 [id number] АННА Soria (Adult Med) [address] [place] [address] 97553-569 0 08/21/2016 15:26:31 08/21/2016 16:03:02 Dental abscess 971300715 K04.7 Low back pain 582600864 M54.5 Obesity 166656871 E66.9 Hypothyroidism 94016964 E03.9 Hypertensive disorder 38 634946 I10 Hyperlipidemia 16127538 E78.5 Gastroesop hageal reflux disease 041081320 K21.9 Hand eczema 649958611 L3 0.9 Administra tion of influenza vaccine 40024391 Z23 [id number] АННА Soria (Adult Med) [address] [place] [address] 29932-256 0 02/06/2017 12:10:00 02/06/2017 12:47:05 Headache 81786561 R51 Low back pain 279550447 M54.5 Hypertensive disorder 38 241773 I10 Hypothyroidism 07562727 E03.9 Hyperlipidemia 92829414 E78.5 Diabetes mellitus 882976 09 E11.9 Vaginitis and vulvovaginitis 247828302 N76.0 Dental abscess 435296125 K04.7 left lower molar , cracked tooth [id number] АННА Soria (Adult Med) [address] [place] [address] 79665-725 0 03/27/2017 11:59:41 03/27/2017 13:11:05 Diabetes mellitus 37852744 E11.9 Hyperlipidemia 06884601 E78.5 Anxiety 56584635 F41.9 Obesity 663500219 E66.9 Hypothyroidism 64950697 E03.9 Hypertensive disorder 38 833954 I10 Low back pain 381607864 M54.5 Hand eczema 095634087 L3 0.9 Bladder mu scle dysfunction - overactive 176376920 N32.81 Gastroesop hageal reflux disease 167537067 K21.9 Asthma 998170646 J45.90 9 Inflammati on of joint of shoulder region 583765792 M13.846 [id number] АННА Soria (Adult Med) [address] [place] [address] 19643-388 0 07/07/2017 16:20:14 07/07/2017 16:57:45 Diabetes mellitus 71871281 E11.9 Hyperlipidemia 68338398 E78.5 Hypothyroidism 03912939 E03.9 Hypertensive disorder 38 878727 I10 Low back pain 072324325 M54.5 Headache 51271854 R51 Obesity 390416265 E66.9 [id number] АННА Soria (Adult Med) [address] [place] [address] 84212-064 0 09/15/2017 11:41:12 09/15/2017 12:49:44 Diabetes mellitus 33314010 E11.9 Low back pain 591784924 M54.5 Sciatica 06815945 M54.31 right worse than left Administra tion of influenza vaccine 08934122 Z23 Asthma 335071858 J45.90 9 Gastroesop hageal reflux disease 456423650 K21.9 Hand eczema 765214510 L3 0.9 Hypertensive disorder 38 376908 I10 Hypothyroidism 71390638 E03.9 Obesity 627374719 E66.9 Hyperlipidemia 63774961 E78.5 [id number] АННА Soria (Adult Med) [address] [place] [address] 11759-372 0 11/09/2017 14:42:58 11/10/2017 08:59:00 Hand eczema 348438536 L30.9 Diabetes mellitus 476538 09 E11.9 Pain of ri ght shoulder joint 8843329586 4385246 M25.511 Asthma 047579696 J45.90 9 Vaginitis and vulvovaginitis 441018619 N76.0 Hypothyroidism 91840315 E03.9 Low back pain 158256767 M54.5 [id number] ANJU ROMAN (Adult Med) [address] [place] [address] 35410-361 0 03/25/2018 11:24:56 03/25/2018 11:57:49 Streptococcal sore throat 18638061 J02.0 stop penicillin start augmentin x 10 daysstart prednisone x 3 daysdiscus sed impact of steroid on blood sugarsuse apap for sore throatDM is uncontroll ed currentlyf /u nir on DM [id number] АННА Soria (Adult Med) [address] [place] [address] 64404-063 0 05/06/2018 11:43:25 05/10/2018 09:46:17 Pain in right hip joint 3135063209 27215 M25.551 Sciatica 85678087 M54.31 right worse than left [id number] АННА Soria (Adult Med) [address] [place] [address] 51465-817 0 07/22/2018 15:52:27 07/22/2018 16:51:35 Hypertensive disorder 69720289 I10 Type 2 ren betes mellitus 76899392 E11.9 Chronic id iopathic constipation 06633527 K59.04 Acute sinusitis 08412250 J01.90 Muscle spa sm of thoracic back 2218617481 35612 M62.830 Sleep apnea 92529132 G47 .30 Inflammati on of joint of shoulder region 850144700 M13.811 Gastroesop hageal reflux disease 688236915 K21.9 Hypothyroidism 54162904 E03.9 Obesity 911317508 E66.9 Hyperlipidemia 81279789 E78.5 [id number] АННА Soria (Adult Med) [address] [place] [address] 50347-829 0 08/19/2018 16:03:29 08/23/2018 10:55:21 Diabetes mellitus 11847509 E11.9 Type 2 ren betes mellitus 36877520 E11.9 Administra tion of influenza vaccine 64404414 Z23 [id number] АННА Soria (Adult Med) [address] [place] [address] 46718-957 0 10/11/2018 10:30:30 10/12/2018 10:22:34 Acute sinusitis 03288097 J01.90 Low back pain 275029928 M54.5 Diabetes mellitus 794483 09 E11.9 Type 2 ren betes mellitus 88937312 E11.9 Sleep apnea 82359513 G47 .30 Hypothyroidism 33495290 E03.9 Hyperlipidemia 68046525 E78.5 Obesity 935204509 E66.9 [id number] АННА Soria (Adult Med) [address] [place] [address] 54635-823 0 03/03/2019 13:54:39 03/04/2019 09:04:53 Type 2 diabetes mellitus 83352716 E11.9 Gastroesop hageal reflux disease 610026792 K21.9 Low back pain 644018145 M54.5 Hypothyroidism 18289323 E03.9 Obesity 144110477 E66.9 Hyperlipidemia 32810051 E78.5 Diabetes mellitus 843404 09 E11.9 Nausea 421707753 R11.0 Chronic id iopathic constipation 99449358 K59.04 Pain in lower limb 42320 006 M79.669 Acute sinusitis 32840171 J01.90 Rectal pain 48322340 K62 .89 Sleep apnea 24191756 G47 .30 [id number] АННА Soria (Adult Med) [address] [place] [address] 50365-065 0 05/19/2019 14:47:48 05/19/2019 16:27:45 Pain in lower limb 93107742 M79.669 Type 2 ren betes mellitus 18993649 E11.9 Gastroesop hageal reflux disease 248264078 K21.9 Hypothyroidism 40447647 E03.9 Hyperlipidemia 26418973 E78.5 Vaginitis 14921945 N76.0 Nausea 766608720 R11.0 Steatosis of liver 52186 1007 K76.0 Sleep apnea 81434066 G47 .30 Low back pain 492718665 M54.5 Obesity 372727695 E66.9 [id number] АННА Soria (Adult Med) [address] [place] [address] 05652-751 0 06/21/2019 14:34:07 06/22/2019 08:52:46 Asthma 133134338 J45.909 Steatosis of liver 1007 K76.0 Gastroesop hageal reflux disease 138350385 K21.9 Hypothyroidism 69652240 E03.9 Obesity 864849266 E66.9 Hyperlipidemia 36042028 E78.5 Diabetes mellitus 640422 09 E11.9 Helicobact er pylori gastrointestinal tract infection 100182149 B96.81 Disorder of scalp 237245 006 L98.9 Hearing lo ss in left ear 6316322028 650476 H91.92 Type 2 ren betes mellitus 13347472 E11.9 Sleep apnea 57023964 G47 .30 Headache 31497346 R51 Low back pain 686858998 M54.5 Hypertensive disorder 38 936144 I10 [id number] АННА Soria (Adult Med) [address] [place] [address] 40349-049 0 08/08/2019 11:11:14 08/09/2019 15:45:59 Vaginitis 80449319 N76.0 Pain of bi lateral thighs 4328140107 3897671 M79.652 left greater than right Numbness a nd tingling sensation of skin 0575407890 02 R20.2 Headache 09231250 R51 a 10 on a scale of 1 to 10 ,, a nerve like shocking forehead Sciatica 74993799 M54.31 right worse than left Disorder of scalp 941682 006 L98.9 Helicobact er pylori gastrointestinal tract infection 920762668 B96.81 Type 2 ren betes mellitus 34934270 E11.9 Steatosis of liver 1007 K76.0 Asthma 161410412 J45.90 9 Gastroesop hageal reflux disease 264734606 K21.9 Low back pain 851841197 M54.5 Hypertensive disorder 38 459177 I10 Hypothyroidism 57780458 E03.9 Hyperlipidemia 34969860 E78.5 [id number] АННА Soria (Adult Med) [address] [place] [address] 83538-993 0 08/22/2019 17:23:23 08/22/2019 18:18:53 Acute bronchitis 85582255 J20.9 Type 2 ren betes mellitus 17415098 E11.9 Steatosis of liver 1007 K76.0 Sleep apnea 78566632 G47 .30 Asthma 831715413 J45.90 9 Gastroesop hageal reflux disease 072127722 K21.9 Bladder mu scle dysfunction - overactive 105063617 N32.81 Low back pain 023794877 M54.5 Hypothyroidism 53111710 E03.9 Hyperlipidemia 67315822 E78.5 Hypertensive disorder 38 400720 I10 [id number] АННА Soria (Adult Med) [address] [place] [address] 84892-882 0 09/20/2019 15:39:56 09/20/2019 17:24:14 Acute sinusitis 21596738 J01.90 Allergic rhinitis 972424 04 J30.9 Low back pain 932834408 M54.5 Type 2 ren betes mellitus 17825697 E11.9 Sciatica 21971886 M54.31 right worse than left Pain in ri ght hip joint 6758135597 18469 M25.551 Neuropathy 365517440 G62 .9 Administra tion of influenza vaccine 35243675 Z23 Pain of bi lateral thighs 1755463641 2684863 M79.652 left greater than right Steatosis of liver 1007 K76.0 Sleep apnea 58111906 G47 .30 Asthma 503038280 J45.90 9 Gastroesop hageal reflux disease 033253780 K21.9 Hypertensive disorder 38 509633 I10 Hypothyroidism 45172611 E03.9 Hyperlipidemia 53458768 E78.5 Diabetes mellitus 055794 09 E11.9 [id number] АННА Soria (Adult Med) [address] [place] [address] 20705-002 0 10/18/2019 15:26:23 10/18/2019 16:28:59 Sciatica 58815433 M54.31 right worse than left Allergic rhinitis 176868 04 J30.9 Anxiety 11511699 F41.9 Asthma 016803784 J45.90 9 Gastroesop hageal reflux disease 020689959 K21.9 Hyperlipidemia 79913302 E78.5 Hypothyroidism 90565057 E03.9 Hypertensive disorder 38 927315 I10 Neuropathy 108904113 G62 .9 Type 2 ren betes mellitus 09303516 E11.9 [id number] АННА Soria (Adult Med) [address] [place] [address] 34117-552 0 10/25/2019 10:16:11 10/26/2019 09:58:10 Numbness and tingling sensation of skin 1091651306 02 R20.2 Sciatica 28553621 M54.31 right worse than left Hyperlipidemia 45371250 E78.5 Hypothyroidism 72280246 E03.9 Type 2 ren betes mellitus 10768639 E11.9 Allergic rhinitis 118879 04 J30.9 Low back pain 542195976 M54.5 Sleep apnea 14088024 G47 .30 Neuropathy 331974553 G62 .9 Gastroesop hageal reflux disease 663569835 K21.9 Diabetes mellitus 265048 09 E11.9 [id number] АННА Soria (Adult Med) [address] [place] [address] 77654-548 0 07/03/2020 11:53:07 07/04/2020 10:41:59 Hypertensive disorder 14580609 I10 Type 2 ren betes mellitus 87089993 E11.9 Peripheral venous insufficiency 45141082 I87.2 Neuropathy 251144043 G62 .9 Diabetes mellitus 590316 09 E11.9 Steatosis of liver 74565 1007 K76.0 Sleep apnea 23696105 G47 .30 Allergic rhinitis 444347 04 J30.9 Anxiety 75395526 F41.9 Inflammati on of joint of shoulder region 024510869 M13.811 Asthma 486722064 J45.90 9 Bilateral acute deep vein thrombosis of femoral veins 4237504509 76690 I82.413 Chronic id iopathic constipation 70947760 K59.04 Deep venou s thrombosis of lower extremity 155462869 I82.409 Gastroesop hageal reflux disease 741591639 K21.9 Hyperlipidemia 61426928 E78.5 Hypothyroidism 68960604 E03.9 [id number] АННА Soria (Adult Med) [address] [place] [address] 32086-198 0 08/31/2020 12:10:00 08/31/2020 12:59:53 Hyperlipidemia 17183454 E78.5 Hypothyroidism 24508352 E03.9 Low back pain 060571088 M54.5 Nausea 951909782 R11.0 Obesity 884355638 E66.9 Peripheral venous insufficiency 32211847 I87.2 Sleep apnea 59882043 G47 .30 Type 2 ren betes mellitus 60974586 E11.9 Neuropathy 484479164 G62 .9 Allergic rhinitis 717763 04 J30.9 Asthma 198569649 J45.90 9 Chronic id iopathic constipation 89698777 K59.04 Gastroesop hageal reflux disease 998496745 K21.9 [id number] АННА Soria (Adult Med) [address] [place] [address] 55820-855 0 10/01/2020 08:00:39 10/01/2020 11:31:30 Allergic rhinitis 26751028 J30.9 Asthma 773582419 J45.90 9 Gastroesop hageal reflux disease 637637276 K21.9 Headache 32789715 R51.9 Anxiety 87639249 F41.9 Bilateral acute deep vein thrombosis of femoral veins 3681424062 93663 I82.413 Type 2 ren betes mellitus 76270693 E11.9 Steatosis of liver 17008 1007 K76.0 Sleep apnea 50425848 G47 .30 Peripheral venous insufficiency 01920801 I87.2 Neuropathy 511247618 G62 .9 [id number] АННА Soria (Adult Med) [address] [place] [address] 61038-496 0 11/13/2020 08:15:27 11/13/2020 16:49:12 Gastroesophageal reflux disease 586320851 K21.9 Low back pain 300552076 M54.5 Type 2 ren betes mellitus 72697326 E11.9 Neuropathy 966951291 G62 .9 Headache 43227807 R51.9 Sleep apnea 38446766 G47 .30 Peripheral venous insufficiency 95453460 I87.2 Hypothyroidism 93012123 E03.9 Hypertensive disorder 38 404053 I10 Hyperlipidemia 61911838 E78.5 Deep venou s thrombosis of lower extremity 686074709 I82.409 Chronic id iopathic constipation 44350289 K59.04 Asthma 129798636 J45.90 9 Anxiety 49331098 F41.9 Allergic rhinitis 113627 04 J30.9 [id number] АННА Soria (Adult Med) [address] [place] [address] 95209-164 0 12/14/2020 10:03:28 12/14/2020 16:25:28 Vaginitis 22903982 N76.0 Pilonidal cyst 39549308 L05.91 Type 2 ren betes mellitus 51173552 E11.9 Asthma 095469808 J45.90 9 Anxiety 85152821 F41.9 SARS-CoV-2 052116168 U07 .1 Allergic rhinitis 571554 04 J30.9 Chronic id iopathic constipation 81602225 K59.04 Deep venou s thrombosis of lower extremity 919836517 I82.409 Sleep apnea 12375072 G47 .30 Peripheral venous insufficiency 33397472 I87.2 Neuropathy 444420554 G62 .9 Low back pain 395401480 M54.5 Hypothyroidism 77299841 E03.9 Hypertensive disorder 38 830742 I10 Hyperlipidemia 54902319 E78.5 [id number] АННА Soria (Adult Med) [address] [place] [address] 95497-315 0 01/18/2021 08:10:12 01/21/2021 08:20:22 Pain in lower limb 60066455 M79.669 Disorientated 73468901 R 41.0 Impaired g astric emptying 982102098 K30 Hypertensive disorder 38 477597 I10 Hyperlipidemia 81764781 E78.5 Allergic rhinitis 669177 04 J30.9 Anxiety 66760464 F41.9 Inflammati on of joint of shoulder region 170939205 M13.811 Asthma 608608296 J45.90 9 Chronic id iopathic constipation 69014260 K59.04 Deep venou s thrombosis of lower extremity 359385842 I82.409 Gastroesop hageal reflux disease 082295620 K21.9 Hypothyroidism 54155036 E03.9 Low back pain 094296335 M54.5 Neuropathy 611651871 G62 .9 Peripheral venous insufficiency 43552693 I87.2 Sleep apnea 24354636 G47 .30 Steatosis of liver 60773 1007 K76.0 Type 2 ren betes mellitus 33643938 E11.9 [id number] АННА Soria (Adult Med) [address] [place] [address] 11660-352 0 02/01/2021 10:04:41 02/01/2021 16:28:43 Deep venous thrombosis of lower extremity 367054001 I82.409 Allergic rhinitis 979695 04 J30.9 Anxiety 66772720 F41.9 Asthma 089845281 J45.90 9 Chronic id iopathic constipation 17545889 K59.04 Cramp in lower limb 4499 29702 R25.2 Diabetes mellitus 629268 09 E11.9 Gastroesop hageal reflux disease 821154859 K21.9 Hyperlipidemia 34259029 E78.5 Hypertensive disorder 38 088665 I10 Hypothyroidism 13577739 E03.9 Low back pain 905341156 M54.5 Neuropathy 907757180 G62 .9 Pain of bi lateral thighs 6455189489 2706828 M79.652 left greater than right Peripheral venous insufficiency 97320197 I87.2 Sleep apnea 46713126 G47 .30 Steatosis of liver 89479 1007 K76.0 Type 2 ren betes mellitus 89292664 E11.9 [id number] АННА Soria (Adult Med) [address] [place] [address] 91835-975 0 03/04/2021 08:24:18 03/04/2021 16:13:37 Diabetes mellitus 49939577 E11.9 Sleep apnea 88115508 G47 .30 [id number] АННА Soria (Adult Med) [address] [place] [address] 45997-857 0 04/05/2021 12:26:55 04/05/2021 15:08:17 Esophagitis 89913702 K20.90 Nausea 488227501 R11.0 Gastroesop hageal reflux disease 201069235 K21.9 Hyperlipidemia 68346478 E78.5 Hypothyroidism 94887620 E03.9 Type 2 ren betes mellitus 28879417 E11.9 Neuropathy 101627687 G62 .9 Asthma 811860027 J45.90 9 Allergic rhinitis 998866 04 J30.9 Sleep apnea 84111700 G47 .30 [id number] АННА Soria (Adult Med) [address] [place] [address] 15649-180 0 09/13/2021 15:38:35 09/13/2021 16:24:02 Administration of influenza vaccine 98389344 Z23 Type 2 ren betes mellitus 99289957 E11.9 Vaginitis 05917438 N76.0 Headache 08702077 R51.[address] of abdo men abnormal 3271343740 5659179 R93.5 Allergic rhinitis 264456 04 J30.9 Anxiety 44179514 F41.9 Asthma 585665262 J45.90 9 Deep venou s thrombosis of lower extremity 324492954 I82.409 Gastroesop hageal reflux disease 430207963 K21.9 Hyperlipidemia 28642829 E78.5 Hypertensive disorder 38 867844 I10 Hypothyroidism 83867407 E03.9 Low back pain 805059355 M54.50 Neuropathy 825298087 G62 .9 Peripheral venous insufficiency 59206231 I87.2 Sleep apnea 50248587 G47 .30 Steatosis of liver 09034 1007 K76.0 [id number] АННА Soria (Adult Med) [address] [place] [address] 78696-322 0 10/18/2021 17:11:30 10/21/2021 09:50:55 Inguinal pain 826103068 R10.2 right Type 2 ren betes mellitus 78153024 E11.9 Acute sinusitis 20814663 J01.90 Diabetes mellitus 088116 09 E11.9 Vaginitis 75455225 N76.0 Peripheral venous insufficiency 89524634 I87.2 Neuropathy 077674133 G62 .9 Low back pain 338169508 M54.50 Impaired g astric emptying 959952207 K30 Hypothyroidism 13914297 E03.9 Hypertensive disorder 38 749706 I10 Hyperlipidemia 99527800 E78.5 Gastroesop hageal reflux disease 781201895 K21.9 Deep venou s thrombosis of lower extremity 392231935 I82.151 [id number] АННА Soria (Adult Med) [address] [place] [address] 17772-318 0 04/17/2022 09:31:13 04/18/2022 09:12:04 Fracture of multiple ribs 3888846 S22.41XA upper anterior Gastroesop hageal reflux disease 794676297 K21.9 Neuropathy 914930372 G62 .9 Pain in ri ght hip joint 5089325208 90078 M25.551 Pain in lower limb 06294 006 M79.669 Rectal pain 84588112 K62 .89 Peripheral venous insufficiency 47039824 I87.2 Type 2 ren betes mellitus 57590583 E11.9 Headache 71761519 R51.9 Allergic rhinitis 065006 04 J30.9 Anxiety 00375149 F41.9 Asthma 549184475 J45.90 9 Chronic id iopathic constipation 99035167 K59.04 Hyperlipidemia 82532260 E78.5 Hypertensive disorder 38 043722 I10 Hypothyroidism 68565160 E03.9 Impaired g astric emptying 761462547 K30 Low back pain 537410236 M54.50 Sleep apnea 48039434 G47 .30 [id number] АННА Soria (Adult Med) [address] [place] [address] 65934-970 0 05/22/2022 14:41:57 05/26/2022 12:24:13 Administration of pneumococcal vaccine 28106924 Z23 Administra tion of tetanus vaccine 742816392 Z23 Deep venou s thrombosis of lower extremity 031956415 I82.409 Gastroesop hageal reflux disease 164733449 K21.9 Hyperlipidemia 10352554 E78.5 Hypothyroidism 74628749 E03.9 Neuropathy 421187735 G62 .9 Sleep apnea 16319530 G47 .30 Type 2 ren betes mellitus 01011486 E11.9 Headache 46880601 R51.9 Vaginitis 93985624 N76.0 Allergic rhinitis 478351 04 J30.9 Anxiety 57458331 F41.9 Inflammati on of joint of shoulder region 411393830 M13.811 Asthma 309121784 J45.90 9 Chronic id iopathic constipation 15607923 K59.04 Hypertensive disorder 38 789624 I10 Steatosis of liver 92683 1007 K76.0 [id number] Eli asencio, JOEL SAAVEDRA (Peds) [address] [place] [address] 46404-977 0 07/30/2022 10:01:52 07/30/2022 12:56:10 Administration of SARS-CoV-2 mRNA vaccine 1436973875 Z23 [id number] MD Kayla Shore (Adult Med) [address] [place] [address] 04603-586 0 11/12/2022 10:04:07 11/13/2022 11:42:46 Morbid obesity 061639979 E66.01 Obesity 244349873 E66.9 Sinusitis 94864279 J32.9 Injury of musculoskeletal system 836916638 T14.8XXA [id number] JOEL Seymour (Adult Med) [address] [place] [address] 85114-760 0 03/03/2023 15:28:12 03/03/2023 16:24:17 Screening for malignant neoplasm of colon 757567096 Z12.11 [id number] [facility] [address] [place] [address] 83431-671 0 07/14/2024 14:53:51 07/15/2024 12:11:06 Gastroesophageal reflux disease 247831996 K21.9 Hyperlipidemia 93929171 E78.5 Hypothyroidism 41366469 E03.9 Lower back injury 930630 005 S39.92XA Neuropathy 543711130 G62 .9 Deep venou s thrombosis of lower extremity 873389978 I82.409 Type 2 ren betes mellitus 02801155 E11.3213 [id number] [facility] [address] [place] [address] 16618-317 0 08/25/2024 15:32:47 08/30/2024 12:18:14 Obesity 235259471 E66.8 Type 2 ren betes mellitus 36302354 E11.3213 Will increase Basaglar to 30U BID and increase to 35 U BID if FBG >130 mg/dl and add Farxiga 10 mg/d Pain of le ft knee region 9718403192 44990 M25.825 [id number] MD Kayla Shore (Adult Med) [address] [place] [address] 51879-874 0 10/06/2024 15:42:52 10/07/2024 11:42:28 Pain of ear 388626960 H92.09 Type 2 ren betes mellitus 80539630 E11.3213 Increase Basaglar to 40U BID. Cannot tolerate metformin Steatosis of liver 1007 K76.0 Headache 24289012 R51.9 [id number] Juanito Elena MD [facility] (Adult Med) [address] [place] [address] 03/02/2025 14:51:33 03/03/2025 15:57:55 Headache 42171091 R51.9 Viral syndrome 749937830 B34.9 Health Concerns Section Related Observation LastModified by Organization Detai ls LastModified Time None Recorded Concern Status LastModified by Organization Details LastModified Time None Recorded Advance Directives Directive N: Payers Encounter Date Sequence Insurance Name Policy Number Policy Hernandez Covered Member ID Hernandez Member ID Guarantor Name 03/03/2023 1 [facility] ON OR AFTER 05/30/21 (MEDICAID REPLACEMENT - HMO) Madhavi Stein [id number] Parole Emil 07/14/2024 1 [employer] [facility] ON OR AFTER 05/30/21 (MEDICAID REPLACEMENT - HMO) Madhavi Stein [id number] [facility] 08/25/2024 1 [facility] ON OR AFTER 05/30/21 (MEDICAID REPLACEMENT - HMO) Madhavi Stein [id number] Madhavi Emil 10/06/2024 1 [facility] ON OR AFTER 05/30/21 (MEDICAID REPLACEMENT - HMO) Madhavi Stein [id number] [facility] 03/02/2025 1 [employer] [facility] ON OR AFTER 05/30/21 (MEDICAID REPLACEMENT - HMO) Madhavi Stein [id number] Madhavi Stein Notes Date Note Type Note Provider Name and Address Organization Details Recorded Time 07/14/2024 text/html Here for DM f/u .She has been off her meds for several months Juanito Elena MD Attn: [address] [place], [address], [facility] 07/14/2024 15:55:26 08/25/2024 text/html Here for DM f/u. Currently using 27 U Basaglar BID as she had before. FBS averaging 200 mg/dl. Has pain in left knee one day ago Juanito Elena MD Attn: [address] [facility], [place], [address], [facility] - [facility] 08/25/2024 17:10:39 10/06/2024 text/html Here for routine f/u. FBG averaging 150-170mg/dl. She has noticed intermittent swelling of her ear and parotid region. Admitted six days ago for CP .Cardiac evaluation negative for acute cardiac ischemia Juanito Elena MD Attn: [employer] [facility], [place], [address], [place] - [facility] 10/06/2024 17:08:40 03/02/2025 text/html Has has three da y history of pain, generalized baby ache and diarrhea Juanito Elena MD Attn: Account[employer] [place], [address], [place] - [facility] 03/02/2025 15:39:51 OBGyn Episode No OBEpisode recorded.
--- OUTSIDE RECORDS SUMMARY | 2025-03-08 15:10 | XMS_ITS | Clinical Summary ---
Author Organization [facility] Address [address] [facility] [place] [address] Care Team Providers Care Overnight Cashier Name Role Phone Valente Musa Boucher APRN-MDS MANAGER Primary Care Provider Source Comments [facility],non-owned Affiliates and Associated Physician Practices is amultiple site organization consisting of ambulatory clinics and hospital sitesin [place], [place], [place] and [place]. This disclosure is being madepursuant to the Care Everywhere program and may not contain all information available regarding this patient. Last updated [email or web address] Allergies No known active allergies Medications * Be aware that medications may not be up to date on this document. Alwaysverify current medications with the patient. Medication Sig Dispensed Refills Start Date End Date Status acetaminophen CR (TYLENOL 8 HOUR) 650 MG tablet acetaminophen 325 mg tablet Active mometasone-formotero l (DULERA) 100-5 MCG/ACT inhaler Dulera 200 mcg-5 mcg/actuation HFA aerosol inhaler Active DULOXETINE HCL PO duloxetine 60 mg capsule,delayed release TAKE 1 CAPSULE BY MOUTH EVERY DAY IN THE EVENING Active lidocaine 2% - hydrocortisone 1% (HEMORROID RECTAL ROCKET) SUPP suppository hydrocortisone 2.5 % topical cream with perineal applicator 04/18/2019 Active METFORMIN HCL PO Active Omeprazole Magnesium (PRILOSEC OTC PO) omeprazole 20 mg capsule,delayed release 07/29/2019 Active triamcinolone 0.1 % cream - LCD 10 % CREA 40 mg Active albuterol (PROVENTIL;VENTOLIN) (2.5 MG/3ML) 0.083% nebulizer solution albuterol sulfate 2.5 mg/3 mL (0.083 %) solution for nebulization Active ELIQUIS 5 MG tablet TK 1 T PO BID 05/29/2020 Ac tive baclofen (LIORESAL) 10 MG tablet baclofen 10 mg tablet Active benzonatate (TESSALON) 100 MG capsule TK 1 C PO BID 02/08/2020 Active ertugliflozin (STEGLATRO) 15 MG tablet Steglatro 15 mg tablet Active ezetimibe (ZETIA) 10 MG tablet TK 1 T PO D WITH LIPTOR 2020 Active famotidine (PEPCID) 40 MG tablet famotidine 40 mg tablet 10/14/2019 Active gabapentin (NEURONTIN) 300 MG capsule gabapentin 300 mg capsule TAKE ONE CAPSULE BY MOUTH EVERY MORNING, 1 AT NOON, 2 BEDTIME X 7 DAYS; THEN INCREASE TO 2 AT NOON X 7 DAYS; THEN 2 THREE TIMES DAILY 07/07/2019 Active BASAGLAR KWIKPEN (BASAGLAR) pen INJ 22 UNITS SC QD 07/22/2019 Ac tive losartan (COZAAR) 50 MG tablet losartan 50 mg tablet TAKE 1 TABLET BY MOUTH EVERY DAY IN THE MORNING( DISCONTINUE LISINOPRIL 20 MG) 07/07/2019 Active metoprolol tartrate (LOPRESSOR) 25 MG tablet metoprolol tartrate 25 mg tablet Active Social History Tobacco Use Types Packs/Day Years Used Date Smoking Tobacco: Never Smokeless Tobacco: Never Tobacco Cessation:Counseling Given: No Alcohol Use Standard Drinks/Week Comments Never 0 (1 standard drink = 0.6 oz pur e alcohol) AUDIT-C Answer Date Recorded Q1: How often do you have a drink containing alc ohol? Never 06/11/2020 Average Number of Drinks Not on file 020 Frequency of Binge Drinking Not on file 05/30 Sex and Gender Information Value Date Recorded Sex Assigned at Not on file Gender Identity Not on file Sexual Orientation Not on file Last Filed Vital Signs Vital Sign Reading Time Taken Comments Blood Pressure 177/108 06/11/2020 3:24 PM CDT Pulse 109 06/11/2020 3:24 PM CDT Temperature 36.6 C (97.8 F) 06/11/2020 3:24 PM CDT Respiratory Rate - - Oxygen Saturation 95% 06/11/2020 3:24 PM CDT Inhaled Oxygen Concentration - - Weight 72.1 kg (159 lb) 06/11/2020 3:24 PM CDT Height 152.4 cm (5') 06/11/2020 3:24 PM CDT Body Mass Index 31.05 06/11/2020 3:24 PM CDT Plan of Treatment Health Maintenance Due Date Last Done Comments COLSUSHANTUARD (AGES 45-75) - COLON CA SCREENING 1972 COLON MONITORING 1972 COLONOSCOPY - COLON CA SCREENING 1972 CT COLONOGRAPHY - COLON CA SCREENING 1972 Colorectal Cancer Screening 1972 FIT - COLON CA SCREENING 1972 FLEX SIG - COLON CA SCREENING 1972 LIPID TESTING 1972 MAMMOGRAM 1972 PAP SMEAR 1972 HIV SCREENING 1987 HEPATITIS C SCREENING 05/14/1990 DTAP/TDAP/TD VACCINES (1 - Tdap) 1991 HEPATITIS B VACCINE (1 of 3 - 19+ 3-dose series) 1991 SCREENING FOR DIABETES 06/11/2020 PNEUMOCOCCAL VACCINE 50+ (1 of 1 - PCV) 2022 ZOSTER VACCINE (1 of 2) 2022 COVID-19 VACCINE (1 - season) 2024 DEPRESSION SCREENING 11/30/2024 INFLUENZA VACCINE (Season Ended) 2025 09/20/2019, 08/19/2018, 09/15/2017, Additional history exists HIB VACCINE Aged Out No longer eligi ble based on patient's age to complete this topic HPV VACCINE Aged Out No longer eligi ble based on patient's age to complete this topic MENINGOCOCCAL (Group B) VACCINE SHARED DECISION-MAKING Aged Out No longer eligible based on patient's age to complete this topic MENINGOCOCCAL GROUPS A/C/Y/W VACCINE Aged Out No longer eligible based on patient's age to complete this topic PNEUMOCOCCAL VACCINE Aged Out No long er eligible based on patient's age to complete this topic Care Teams Overnight Cashier Relationship Specialty Start Date End Date Musa Victor, SHAFT REPAIRER-MDS MANAGER [address] [place] [address] PCP - General 06/07/20
--- OUTSIDE RECORDS SUMMARY | 2025-03-08 15:10 | XMS_ITS | Clinical Summary ---
Author Organization [facility] Address [address] [place] [id number] Care Team Providers Care Automotive Parts Person Name Role Phone Unknown, Notinfile Primary Care Provider Unavail able Allergies No known active allergies Medications dicyclomine (BENTYL) 20 mg tabletIndication s:Irritable Bowel Syndrome Take 1 tablet (20 mg total) by mouth 2 (two) times a day 20 tablet 03/28/[address] (PROTONIX) 40 mg EC tablet Take 1 tablet (40 mg total) by mouth daily 30 tablet 03/28/2021 Active Surgical History Surgery Date Site/Laterality Comments SECTION TONSILLECTOMY Medical History Medical History Date Comments Asthma Hypertension Thyroid disease GERD (gastroesophageal reflux disease) Gastroparesis Diabetes mellitus (HCC) H. pylori infection High cholesterol Sciatic pain Obesity DVT, bilateral lower limbs (HCC) Social History Tobacco Use Types Packs/Day Years Used Date Smoking Tobacco: Never Assessed Comments Unknown Sex and Gender Information Value Date Recorded Sex Assigned at Not on file Legal Sex Female 8:03 AM WEEKEND RECEPTIONIST Gender Identity Not on file Sexual Orientation Not on file Obstetrics History Last Filed Vital Signs Vital Sign Reading [...] 07/12/2021 10:37 PM CDT Plan of Treatment Health Maintenance Due Date Last Done Comments Breast Cancer Screening-Mammogram 1972 Colon Cancer Screening-Colonoscopy 1972 Depression Screening 1972 Hepatitis B Screening 1990 Regular Well Visit/Exam 18-64 1990 Cervical Cancer Screening 01/03/2016 01/03/2015 Zoster Vaccine (1 of 2) 2022 Pneumococcal vaccine <65 (2 of 2 - PPSV23) 07/17/2022 05/22/2022 Covid-19 Vaccine (4 - 2023-2 5 season) 2024 07/30/2022, 12/12/2021, 11/14/2021 Influenza Vaccine (#1) 2024 , 09/18/2020, 09/20/2019, Additional history exists DTaP/Tdap/Td Vaccine (2 - Td or Tdap) 05/22/2032 05/22/2022 Hepatitis C Screening Completed 10/31/2013 Procedures Procedure Name Priority Date/Time Associated Diagnosis Comments THINPREP PAP Routine 01/03/2015 1:45 AM WEEKEND RECEPTIONIST HEPATITIS PANEL, ACUTE Routine 10/31/2013 3:34 PM WEEKEND RECEPTIONIST from Last 3 Months or Most Recently Relevant to Health Maintenance Results * ThinPrep Pap (01/03/2015 1:45 AM WEEKEND RECEPTIONIST) Thin Prep Pap Smear SEE BELOW () 01/13 8:49 AM WEEKEND RECEPTIONIST [facility] HISTORICAL RESULTS Comment: Nca Certified Concierge ThinPrep Cytology Final Report ThinPrep Pap Specimen Source Cervix/Endocervix Specimen Adequacy Satisfactory for interpretation, endocervical cells (transformation zone) present. Interpretation Negative for intraepithelial lesion or malignancy. 01/13/15 Podiatry Teacher: RIVKA Benites(ASCP) 01/13/15 Verified By: RIVKA Benites(ASCP) electronic signature [facility] Department of Pathology For questions regarding this case, call ext. [phone] CPT Code(s) 29370 Clinical History LMP: [id number] : N : N IUD: N Hormone Therapy: N Postmenopausal: N Previous surgery date and type: N Hysterectomy: N Chemotherapy: N FARIDA Exposure: N Radiation: N Previous Abnormal Pap? Details: N Diagnostic or Screening Pap Test: Screening Performed by [facility], [address] [place] [id number] [email or web address], Blaze Weems MD - Lab. Director 01/03/2015 1:45 AM WEEKEND RECEPTIONIST 01/03/2015 3:49 PM WEEKEND RECEPTIONIST Luis Saenz MD LAB PATHOLOGY ORDERABLE S Final Result [facility] HISTORICAL RESULTS * Hepatitis panel, acute (10/31/2013 3:34 PM WEEKEND RECEPTIONIST) HepBsAg NONREACT NONREACTIVE 10/31/2013 5:55 PM WEEKEND RECEPTIONIST [facility] HISTORICAL RESULTS Comment: Siemens CentaurXP using AMEYA (chemiluminescent immunoassay) technology. NONREACTIVE: IgM antibodies to Hepatitis B Surface antigen not detected. REACTIVE: IgM antibodies to Hepatitis B Surface antigen detected. Reactive results will be confirmed by neutralization testing. HBsAb (immune status) NONREACT NONREACTIVE 10/31/2013 5:46 PM WEEKEND RECEPTIONIST [facility] HISTORICAL RESULTS Comment: Siemens CentaurXP using AMEYA (chemiluminescent immunoassay) technology. NONREACTIVE: IgM antibodies to Hepatitis B Surface antibody not detected. REACTIVE: IgM antibodies to Hepatitis B Surface antibody detected. Hep B core IgM NONREACT NONREACTIVE 3 6:40 PM WEEKEND RECEPTIONIST [facility] HISTORICAL RESULTS Comment: Siemens CentaurXP using AMEYA (chemiluminescent immunoassay) technology. NONREACTIVE: IgM antibodies to Hepatitis B Core antigen not detected. EQUIVOCAL: IgM antibodies to Hepatitis B Core antigen may or may not be present. Obtain a new specimen and retest. REACTIVE: IgM antibodies to Hepatitis B Core antigen detected. Hep A IgM NONREACT NONREACTIVE 10/31/2013 6:40 PM WEEKEND RECEPTIONIST [facility] HISTORICAL RESULTS Comment: Siemens CentaurXP using AMEYA (chemiluminescent immunoassay) technology. NONREACTIVE: IgM antibodies to Hepatitis A not detected. This does not exclude possibility of exposure to Hepatitis A or early acute infection. EQUIVOCAL:IgM antibodies to Hepatitis A may or may not be present. Suggest recollection and retest. REACTIVE: Antibodies to Hepatitis A detected. Hep C Ab NONREACT NONREACTIVE 10/31/2013 6:40 PM WEEKEND RECEPTIONIST [facility] HISTORICAL RESULTS Comment: Siemens CentaurXP using AMEYA [...] to Hepatitis C detected. 10/31/2013 3:34 PM WEEKEND RECEPTIONIST 10/31/2013 4:49 PM WEEKEND RECEPTIONIST Luis Saenz MD LAB MICROBIOLOGY - [facility] ORDERABLES Final Result [facility] HISTORICAL RESULTS from Last 3 Months or Most Recently Relevant to Health Maintenance Insurance [facility] Care Teams Automotive Parts Person Relationship Specialty Start Date End Date Unknown, Notinfile PCP - General 01/03/19
--- NOTE | 2025-03-08 15:26 | ED_ITS ---
HPI - URI/Sore Throat General Chief Complaint: Upper Respiratory Infection Stated Complaint: URI sx Time Seen by Provider: 03/08/25 14:23 Source: patient Mode of arrival: ambulatory Limitations: no limitations History of Present Illness HPI Narrative: Patient presents with report of upper respiratory symptoms since Thursday03/03/2025. She has had the cough productive of clear sputum, sore throat, chest congestion, and headache. She has been taking Tylenol p.r.n. as well as vcod-fwz-yqphmtb cough medicines without relief. She saw her primary care physician Dr. Greco on Thursday but states she was not given prescriptions for any medications including no antibiotics. She states she only has shortness of breath when she coughs similarly she has chest pain from coughing. She is a nonsmoker. In regards to underlying respiratory conditions she states that she has been prescribed an inhaler previously home for a questionable diagnosis of asthma although she only really needs that course prescribed when she is sick. No hemoptysis. She is status post tonsillectomy. She denies any edema but does have a history of DVT T for which she is on Eliquis although she admits to missing some doses. Related Data Home Medications ?Medication ?Instructions ?Recorded ?Confirmed ?Last Taken ?Type apixaban 5 mg tablet (Eliquis) 5 mg PO DAILY 06/16/20 09/30/24 09/29/24 21:00 History duloxetine 60 mg capsule,delayed 60 mg PO HS 06/16/20 09/30/24 09/29/24 21:00 History release insulin glargine 100 unit/mL (3 25 unit subcut HS 12/07/20 09/30/24 09/29/24 21:00 History mL) subcutaneous pen (Basaglar KwikPen U-100 Insulin) pregabalin 150 mg capsule 150 mg PO BID 12/07/20 09/30/24 09/29/24 21:00 History dapagliflozin propanediol 10 mg 10 mg PO DAILY 09/30/24 09/30/24 09/29/24 17:00 History tablet (Farxiga) rosuvastatin 40 mg tablet 40 mg PO QHS 09/30/24 09/30/24 09/29/24 21:00 History Allergies Allergy/AdvReac Type Severity Reaction Status Date / Time No Known Allergies Allergy Unknown Verified 03/08/25 13:38 [facility] Past Medical History Medical History Renal abscess Renal cyst Gastroparesis Neuropathy Adenomatous colon polyp Diabetes mellitus HTN (hypertension) DVT (deep venous thrombosis) approx 3-4 years ago HLD (hyperlipidemia) H. pylori infection COVID-19 Perirectal abscess Chronic anticoagulation Epigastric pain Perirectal ulcer Pneumonia due to 2019-nCoV Asthma Surgical History Surgical History H/O colonoscopy H/O esophagogastroduodenoscopy H/O section History of tonsillectomy Family History Family History Mother Diabetes mellitus Heart disease Acute myocardial infarction Sibling Diabetes mellitus Social History Social History Social History: Patient is and lives with her two children. 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 She is a full code. Smoking status: Never smoker Second hand tobacco smoke exposure: Yes Alcohol intake: never Substance use: never Substance use type: does not use Do You Feel Safe in your Home?: Yes Lack of Transportation: No Lack of Food: Never True Current Housing: I Have Housing Concerned About Future Housing: No Difficulty Paying Gas/Electric Bills: No Difficulty Paying for Meds: No Currently Unemployed: No Education: Decline to Answer Difficulty w/ Childcare or Family Care: No Gender identity (if verbalized by the patient): Female Sexual Orientation (if Verbalized by the Patient): Straight or Heterosexual Spiritual care concerns: No Exam 2 Narrative: GENERAL: Well-appearing, well-nourished, and in no acute distress. HEAD: Normocephalic, atraumatic. EYES: Non injected, non icteric ENT: Nares clear, no rhinorrhea or epistaxis. Mild erythema at the posterior oropharynx ; tonsils surgically removed therefore without hypertrophy or exudate. NECK: Supple. No lymphadenopathy. CHEST: Speaking in full sentences. No respiratory distress. Lungs clear to auscultation bilaterally. She does cough when taking a deep breath. No appreciable wheeze at baseline or with coughing HEART: Regular rate and rhythm. . ABDOMEN: Soft, nondistended. EXTREMITIES: Normal range of motion. No lower extremity edema. SKIN: Warm, dry, no rash. NEURO: No focal deficits. Alert and oriented x3. PSYCH: Normal mood and affect. Course Vital Signs Vital signs: Vital Signs Temperature 97.5 F L 03/08/25 13:48 Pulse Rate 102 H 03/08/25 13:48 Respiratory Rate 20 03/08/25 13:48 Blood Pressure 149/97 H 03/08/25 13:48 Pulse Oximetry 97 03/08/25 13:48 Oxygen Delivery Room Air 03/08/25 13:48 Temperature 98.2 F 03/08/25 17:24 Pulse Rate 84 03/08/25 17:24 Respiratory Rate 16 03/08/25 17:24 Blood Pressure 126/72 03/08/25 17:24 Pulse Oximetry 95 03/08/25 17:24 Oxygen Delivery Room Air 03/08/25 13:48 MDM - URI/Sore Throat MDM Narrative Medical decision making narrative: Patient presents with upper respiratory symptoms since Thursday for her for . She describes a cough productive of clear sputum, sore throat, and headache. In the emergency department she is afebrile with vital signs that show mild tachycardia as well as hypertension. Very mild thrombocytopenia. Patient has an elevated hemoglobin but hematocrit is normal. I suspect a degree of hemoconcentration. Her renal function is normal. She has hyperglycemia without anion gap acidosis. History of diabetes. Sodium corrects to normal (137-139) in the setting of hyperglycemia. Imaging negative for acute process thus consistent with bronchitis. She had received 1 time dose of dexamethasone for sore throat given that this has been shown to improve the time to symptom improvement. Imaging without evidence of pneumonia thus her cough represents bronchitis. Given that she has previously used inhaler for asthma, will refill this but no role for antibiotics or steroids. Patient given Tessalon Perles and prescribed the same. Also given prescription for Cepacol lozenges for cough and sore throat. Differential Diagnosis Differential diagnosis: Likely upper respiratory infection, viral infection, bronchitis, influenza, pharyngitis and other (Pneumonia) Lab Data Attestation: I reviewed the patient's lab results. 03/08/25 15:55 03/08/25 15:55 Labs: Lab Results 03/08/25 03/08/25 Range/Units 14:58 15:55 WBC 4.7 (4.5-10.0) K/mm3 RBC 5.25 (4.2-5.4) M/mm3 Hgb 15.4 H (12.0-15.0) g/dL Hct 46.5 (37.0-47.0) % MCV 88.6 (80-100) fl MCH 29.3 (26-34) pg MCHC 33.1 (32-36) g/dl RDW 12.3 (11.5-14.5) % Plt Count 148 L (150-375) k/mm3 MPV 11.0 H (7.4-10.4) fl Immature Gran % (Auto) 0.4 (0-0.5) % Neut % (Auto) 61.0 (45.5-73.1) % Lymph % (Auto) 27.2 (18.3-44.2) % [place] % (Auto) 9.1 H (2.6-8.5) % Eos % (Auto) 1.9 (0-4.4) % Baso % (Auto) 0.4 (0.2-1.2) % Lymph # (Auto) 1.29 (0.9-3.2) K/mm3 [place] # (Auto) 0.4 (0.1-0.6) K/mm3 Eos # (Auto) 0.1 (0-0.3) K/mm3 Baso # (Auto) 0.0 (0.0-0.1) K/mm3 Abs Immat Gran (auto) 0.02 (0.00-0.031) K/mm3 Absolute Neuts (auto) 2.9 (1.3-6.7) K/mm3 Absolute Nucleated RBC 0.000 (0.0-0.012) K/mm3 Nucleated RBC % 0.0 (0.0-0.2) % D-Dimer 0.45 (<0.48) ug/mL Sodium 134 L (137-145) mmol/L Potassium 4.2 (3.4-5.0) mmol/L Chloride 97 L (98-107) mmol/L Carbon Dioxide 29 (22-30) mmol/L Anion Gap 8 (4-12) mmol/L BUN 11 (7-17) mg/dL Creatinine 0.62 L (0.7-1.0) mg/dL Estim Creat Clear Calc 79 ml/min Estimated GFR > 60 (59 - ) Glucose 312 H (65-110) mg/dL Calcium 8.9 (8.4-10.2) mg/dL Influenza A (RT-PCR) Negative (Negative) Influenza B (RT-PCR) Negative (Negative) RSV (RT-PCR) Negative (Negative) SARS-CoV-2 RNA (RT-PCR) Negative (Negative) Imaging Data Radiologist's impression: Impressions Chest X-Ray 03/08/25 15:01 IMPRESSION: No acute process. Discharge Plan Discharge Clinical Impression: Bronchitis, Pharyngitis, Hyperglycemia due to diabetes mellitus Patient Disposition: Home Condition: Stable Instructions: Antibiotic Form, Pharyngitis (ED), Acute Bronchitis (ED), Managing Diabetes During Sick Days (ED), Diabetic Hyperglycemia (ED) Additional Instructions: No evidence of pneumonia on your chest x-ray. We call your symptoms bronchitis in this case. No need for steroids or antibiotics. I am refilling albuterol inhaler you find that helpful. Rest of supportive care are the main stays of treatment. This is usually viral although you tested negative for COVID, influenza a, influenza B, and RSV. You can use the Tessalon Perles and lozenges for sore throat and cough. Xtpi-srr-mupprgl medications can continue to be use although do research behind them is limited. Gargle with salt water for the sore throat and honey has been proven effective for a cough. Follow-up with primary care physician. Return to the emergency department with any new, worsening, unmanaged symptoms. Patient Language: Vietnamese Prescriptions: New benzonatate 100 mg capsule 100 mg PO BID PRN (Reason: cough) Qty: 20 0RF albuterol sulfate [Ventolin HFA] 90 mcg/actuation HFA aerosol inhaler 1 inh inhalation QID PRN (Reason: shortness of breath or wheezing) Qty: 6.7 0RF Cepacol Sore Throat-Cough 5-7.5 mg lozenge 1 josiah PO Q4H PRN (Reason: cough) Qty: 16 0RF No Action duloxetine 60 mg capsule,delayed release(DR/EC) 60 mg PO HS Eliquis 5 mg tablet 5 mg PO DAILY fluticasone propionate [24 Hour Allergy Relief] 50 mcg/actuation spray,suspension 2 spray intranasal DAILY 30 Days Qty: 16 0RF Rx Instructions: administer into each nostril methylprednisolone [Medrol (Jose)] 4 mg tablets,dose pack See Rx Instructions PO .COMPLEX Qty: 21 0RF Rx Instructions: orally per package directions cyclobenzaprine 10 mg tablet 10 mg PO Q8H PRN (Reason: muscle spasm) 7 Days Qty: 21 0RF insulin glargine [Basaglar KwikPen U-100 Insulin] 100 unit/mL (3 mL) insulin pen 25 unit SUBCUT HS pregabalin 150 mg capsule 150 mg PO BID rosuvastatin 40 mg tablet 40 mg PO QHS dapagliflozin propanediol [Farxiga] 10 mg tablet 10 mg PO DAILY drpkuqfeqi-dvjtzjqhswxge-llgs 50-325-40 mg Tablet 1 tablet PO Q4H PRN (Reason: headache) Qty: 10 0RF lidocaine [Lidoderm] 5 % Adhesive Patch,Medicated 2 patch transdermal DAILY Qty: 30 0RF Rx Instructions: apply to lower back cyclobenzaprine 5 mg tablet 5 mg PO TID PRN (Reason: muscle spasm) Qty: 20 0RF albuterol sulfate 90 mcg/actuation HFA aerosol inhaler 4 puff INHALATION QID PRN (Reason: shortness of breath or wheezing) Qty: 8 0RF Follow-up/Referrals: Franklyn Greco, [Primary Care Provider] - Stand Alone Forms: Work/School Release IP Time of Disposition: 16:58
[2025-03-08 15:38] LABS: Influenza A QL RT-PCR Negative (Negative); Influenza B QL RT-PCR Negative (Negative); RSV RNA, RT-PCR Negative (Negative); SARS-CoV-2 RNA PCR Negative (Negative)
[2025-03-08] MEDS: dexAMETHasone 2 MG TABLET 10 MG PO (15:49)
[2025-03-08 16:01] LABS: Basophils Percent Auto 0.4 % (0.2-1.2); Eosinophils Absolute Auto 0.1 K/mm3 (0-0.3); Eosinophils Percent Auto 1.9 % (0-4.4); Hematocrit 46.5 % (37.0-47.0); Hemoglobin 15.4 g/dL (12.0-15.0); Immature Granulocyte Absolute 0.02 K/mm3 (0.00-0.031); Immature Granulocyte Percent A 0.4 % (0-0.5); Lymphocytes Absolute Auto 1.29 K/mm3 (0.9-3.2); Lymphocytes Percent Auto 27.2 % (18.3-44.2); Mean Corpuscular HGB Conc 33.1 g/dl (32-36); Mean Corpuscular Hemoglobin 29.3 pg (26-34); Mean Corpuscular Volume 88.6 fl (80-100); Monocytes Absolute Auto 0.4 K/mm3 (0.1-0.6); Monocytes Percent Auto 9.1 % (2.6-8.5); Neutrophils Absolute Auto 2.9 K/mm3 (1.3-6.7); Platelet Count Result 148 k/mm3 (150-375); Red Blood Count 5.25 M/mm3 (4.2-5.4); Red Cell Distribution Width 12.3 % (11.5-14.5); White Blood Count 4.7 K/mm3 (4.5-10.0)
--- OUTSIDE RECORDS SUMMARY | 2025-03-08 16:04 | XMS_ITS | Clinical Summary ---
Author Organization [facility] Address [address] [facility] [address] [place] [address] Phone Care Team Providers Care Solvent Plant Treater Name Role Phone Mike Victor Primary Care Provider [phone] Allergies No known active allergies Medications Bismuth [...] Recently Relevant to Health Maintenance Insurance MEDICAID [facility] Care Teams Solvent Plant Treater Relationship Specialty Start Date End Date Mike Victor PA [address] [place] [address] PCP - General Physician Mechanical Engineering Director 03/25/19
--- OUTSIDE RECORDS SUMMARY | 2025-03-08 16:04 | XMS_ITS | Encounter Summary ---
Author Organization [facility] Care Team Providers Care Pricing Lead Name Role Phone Unknown, Notinfile Primary Care Provider Unavail able Encounter Details Date Type Department Care Team (Latest Contact Info) Description 09/17/2015 Orders Only [facility]INCONV Provider, MD Natasha [address] [place] [id number] Social History Tobacco Use Types Packs/Day Years Used Date Smoking Tobacco: Never Assessed Comments Unknown Sex and Gender Information Value Date Recorded Sex Assigned at Not on file Legal Sex Female 8:03 AM ORTHOPAEDIC PHYSICIAN ASSISTANT Gender Identity Not on file Sexual Orientation [...] documented as of this encounter Care Teams Pricing Lead Relationship Specialty Start Date End Date Unknown, Notinfile PCP - General 01/03/19 documented as of this encounter
--- OUTSIDE RECORDS SUMMARY | 2025-03-08 16:04 | XMS_ITS | CONTINUITY OF CARE DOCUMENT ---
Author Name navdeep sethi Address Unknown Organization [facility] Address [address] [place] [address] [address] [place] [address] Phone [phone] Care Team Providers Care Burning Machine Operator Name Role Phone Lorna CARNEY, Nir Kirby Unavailable JODY SPAIN Unavailable [phone] TRELL ELENA MD Unavailable PROBLEMS Condition Status Date Provider Notes DVT active Iker Bahena RN Family History Coronary Heart Disease female < 65: completed - Omar Begum MD Family History of CVA or Stroke: completed - Omar Begum MD Family History of Hyperlipidemia: completed - Omar Begum MD Family History of Hypertension: completed - Omar Begum MD Diabetes, Type 2 active ? Nir Rothman MD Hyperlipidemia active ? Nir Rothman MD Hypertension completed - Omar Begum MD Leg pain completed - Omar Begum MD Snoring completed - Omar Begum MD SLEEP APNEA;on rx active Omar Begum MD Chest pain-type to be determined completed - Omar Begum MD Diabetes Mellitus, Type II, uncontrolled completed - Omar Begum MD FAMILY HISTORY OF HEART DISEASE active Omar Begum MD mom had mi Exposure to SARS-associated coronavirus;neg igg active Omar Begum MD Screening active Omar Begum MD HTN essential;neg angio active Omar rodriguez MD PVD; active Omar Begum MD Obesity active Omar Begum MD Neuropathy active Omar Begum MD GERD active Nir Rothman MD Cardiology examination active Yoli drummond [employer] MARKET[employer] ENCOUNTERS Date Type Provider Location Encounter Diag nosis - In-person encounter Office Visit Nir Rothman MD [facility] Cardiology examination - In-person encounter Office Visit Nir Rothman MD [facility] - In-person encounter Office Visit Nir Rothman MD [facility] GERD - In-person encounter Office Visit Nir Rothman MD [facility] - In-person encounter Office Visit Nir Rothman MD [facility] - In-person encounter Office Visit Omar Begum MD [facility] Family History Coronary Heart Disease female < 65:Family History of CVA or Stroke:Family History of Hyperlipidemia:Family History of Hypertension:Hypertension Leg painSnoringSLEEP APNEA;on rxChest pain-type to be determinedDiabetes Mellitus, Type II, uncontrolledFAMILY HISTORY OF HEART DISEASEExposure to SARS-associated coronavirus;neg iggScreeningHTN essential;neg angioPVD;ObesityNeuropath y - In-person encounter Office Visit Nir Rothman MD [facility] - In-person encounter Office Visit Nir Rothman MD [facility] - In-person encounter Office Visit Nir Rothman MD [facility] - In-person encounter Office Visit Nir Rothman MD [facility] - In-person encounter Office Visit Nir Rothman MD [facility] - In-person encounter Office Visit Nir Rothman MD [facility] SLEEP APNEA;on rx - In-person encounter Office Visit Raulito Acevedo MD [facility] Office - In-person encounter Office Visit Nir Rothman MD [facility] Diabetes, Type 2Hyperlipidemia VITAL SIGNS Date Observation Value Provider blood pressure, diastolic 84 mm[Hg] Han mikaela Wren blood pressure, systolic 122 mm[Hg] Charu peter Wren oxygen saturation, oximetry 100 % [facility] pulse rate 74 /min [facility] height E&M 61 [in_i] [facility] Body Mass Index (Ratio) 29.66 kg/m2 [...] dunlap pulse rate 77 /min Page K[facility] weight E&M 168 [lb_av] Page Perezangelrossi [facility] height E&M 61 [in_i] Page Adam [facility] Body Mass Index (Ratio) 31.55 kg/m2 Gracie [...] Tonsha Olivares temperature site temporal Diane Tank [facility] temperature E&M 97.1 [degF] Diane Tanks jame [...] [in_i] Tonsha Olivares temperature site temporal Diane [facility] temperature E&M 96.8 [degF] Diane [facility] Body Mass Index (Ratio) 31.55 kg/m2 Tyree Rothman MD blood pressure, diastolic 86 mm[Hg] [facility], systolic 109 mm[Hg] [facility] oxygen saturation, oximetry 98 % [facility] respiratory rate E&M 16 /min [facility] pulse rate 76 /min [facility] weight E&M 167 [lb_av] [facility] height E&M 61 [in_i] [facility] temperature site [facility] temperature E&M 97.3 [degF] Diane [facility] Body Mass Index (Ratio) 34.38 kg/m2 Tyree Rothman MD weight E&M 182 [lb_av] [facility] oxygen saturation, oximetry 98 % Gerson Potter blood pressure, diastolic 90 mm[Hg] Pablo Potter blood pressure, systolic 126 mm[Hg] Jenny Potter pulse rate 92 /min Gerson [facility] respiratory rate E&M 16 /min Gerson Potter height E&M 61 [in_i] [facility] Body Mass Index (Ratio) 35.33 kg/m2 Kimberly [...] Desai blood pressure, diastolic 92 mm[Hg] Angelina Padilla Bensonenson blood pressure, systolic 147 mm[Hg] Kathy [...] [employer] 3.5-5.2 sodium, serum 140 mmol/L [employer] [phone]/09/ 12 urea nitrogen/creatinine ratio, serum 19 [employer] [...] (3 mL) insulin pen active Yoli Ventimiglia [employer] Farxiga 10 mg tablet active Yoli Ventimiglia [employer] rosuvastatin 40 mg tablet active Yoli Ventimiglia [employer] fluticasone propionate 50 mcg/actuation spray,suspension active Yoli Ventimiglia [employer] famotidine 20 mg tablet active Yoli Ventimiglia [employer] butalbital-acetamin ophen-caff 50-325-40 mg tablet active Yoli Ventimiglia [employer] Eliquis 5 mg tablet active TAKE 1 TABLE T BY MOUTH TWICE DAILY 03/25 Manisha Gregory VASCEPA 1 GM ORAL CAPSULE completed 2 capsules by mouth twice daily [place] Coupon Code: BIN# [id number], PCN# [id number], GRP# [id number], ID# [id number] 05/18 - 05/30 Linnea Keith RN Eliquis [...] history of marijuana use no Yoli Ventimiglia [facility] drug use no Yoli Ventimig guerita [facility] alcohol use no Yoli Ventimig guerita [facility] smoking status Never smoker [facility] Never smoker Nir lucas [...] Nir Rothman MD smoking status Never smoker [facility] social history E&M Patient has n ever smoked. Smoking History: P lorraine has never smoked. Nir Rothman MD social history reviewed E&M revi ewed - no changes required Nir Rothman MD smoking status Never smoker [facility] social history E&M Patient has n ever smoked. Smoking History: P lorraine has never smoked. Omar Begum MD social history reviewed E&M revi ewed - no changes required Omar Begum MD smoking status Never smoker [facility] smoking status Never smoker Nir lucas MD social history E&M Patient has n ever smoked. Smoking History: P lorraine has never smoked. Nir Rothman MD social history reviewed E&M revi ewed - no changes required Nir Rothman MD alcohol use no [facility] smoking status Never smoker [facility] social history reviewed E&M revi ewed - no changes required [facility] social [facility] reviewed E&M revi ewed - [...] MD FAMILY HISTORY Family Member Condition Mother [place] female <65 Mother Family History of Hy pertension: Mother Family History of Hy perlipidemia: Mother Family History of Di abetes: Mother Family History of CV A or Stroke: Mother Family History Coron shy Heart Disease female < 65: Father Family History Unkno wn INSURANCE PROVIDERS Payer name Policy type / Coverage type [place] [employer] [place] [employer] (2) Medicaid [id number] ADVANCE DIRECTIVES Name Date DISCUSSED - NO DECISION MADE TREATMENT PLAN Date Name Performer [id number],C, O n CPAP T he patient is using CPAP on a regular basis. The patient has been benefiting from therapy and should continue use. April 10, 2023 T he patient is using CPAP on a regular basis. The patient has been benefiting from therapy and should continue use. Nir Rothman MD [id number],C, C P noted had CT no PE has esophagitis and pericardial cyst. Recommend EGD and H.. pylori eval. Nir Rothman MD [id number],C, b oth legs have DVT started on eliquis 04/30/2020. Still has leg pain. Needs to see specialist for veins at [facility]. M ild leg edema. No Kinjal's. CONCLUSIONS: [...] 2020 S aw specialist in vascular at [facility]. Was given compression stockings for both legs. Advised her to schedule f/u. Remain on ELiquis. April 03, 2021 W ent to [facility] was advised that there was no further treatment per her recollection. Recommended to remain on AC. S he should remain on compression stockings as well. April 10, 2023 s he went to [place] recently did not have a dvt study done there. will arrange for one Nir Rothman MD [id number],C, B P today: 130/80 P rior BP: [...] problem includes: Rosuvastatin 40 Mg Tablet (Rosuvastatin) [place] Marymimy [facility] Cardiology:The patie nt is using CPAP on a regular basis. The patient has been benefiting from therapy and should continue use. [place] Marymiglia [facility] Cardiology: b oth legs have DVT started on eliquis 04/30/2020. Still has leg pain. Needs to see specialist for veins at [facility]. M ild leg edema. No Kinjal's. CONCLUSIONS: [...] 2020 S aw specialist in vascular at [facility]. Was given compression stockings for both legs. Advised her to schedule f/u. Remain on ELiquis. April 03, 2021 W ent to [facility] was advised that there was no further treatment per her recollection. Recommended to remain on AC. She should remain on compression stockings as well. April 10, 2023 s he went to [place] recently did not have a dvt study done there. will arrange for one May 06, 2023 1 . No evidence of a deep vein thrombosis of the lower extremities bilaterally. October 10, 2024 R melanie on Eliquis for AC Yoli Searsjonnyia [employer] Cardiology:BP today 122/84 Amand michael Ventimiglia [employer] Cardiology: m ild by rajni 2019 FINDINGS: [...] RAJNI DONE DOUBT VASCULAR THOUGH Yoli Marymiglia [facility] Cardiology: O n CPAP T he [...] Needs to see specialist for veins at [facility]. M ild leg edema. No Kinjal's. CONCLUSIONS: [...] 2020 S aw specialist in vascular at [facility]. Was given compression stockings for both legs. Advised her to schedule f/u. Remain on ELiquis. April 03, 2021 W ent to [facility] was advised that there was no further treatment per her recollection. Recommended to remain on AC. She should remain on compression stockings as well. April 10, 2023 s he went to [place] recently did not have a dvt study [...] Needs to see specialist for veins at [facility]. M ild leg edema. No Kinjal's. CONCLUSIONS: [...] 2020 S aw specialist in vascular at [facility]. Was given compression stockings for both legs. [...] 10, 2020 S specialist in vascular at [facility]. Was given compression stockings for both legs. [...] A1C. O rders: 9 9215 HIGH Complex (CPT-72525) C OMPREHENSIVE METABOLIC PANEL, W/EGFR (18760) L IPID PANEL (7600) H EMOGLOBIN A1c (496) [facility] Cardiology:This dago ent?s angina is disabling and in my opinion is not readily amenable to surgical intervention by PTCA or cardiac bypass because the patient's coronary anatomy is not readily amenable to such procedures. Will try ECP as she is having recurrent CP. O rders: E KG (CPT-69220) 9 9215 HIGH Complex (CPT-57212) C OMPREHENSIVE METABOLIC PANEL, W/EGFR (91760) L IPID PANEL (7600) H EMOGLOBIN A1c (496) E CP Commercial (CPT-05605) E CP - Medicare (CPT-G0166) [facility] Cardiology:The patie nt is using CPAP on [...] tab. daily Orders: 9 9215 HIGH Complex (CPT-26999) L IPID PANEL (7600) C OMPREHENSIVE METABOLIC PANEL, W/EGFR (34255) E CP - Medicare (CPT-G0166) E CP Commercial (CPT-89815) Nir Rothman MD Cardiology:May be re lated to microvascular angina. This patient?s angina is disabling and in my opinion is not readily amenable to surgical intervention by PTCA or cardiac bypass because the patient's coronary anatomy is not readily amenable to such procedures. O rders: 9 9215 HIGH Complex (CPT-63671) L IPID PANEL (7600) C OMPREHENSIVE METABOLIC PANEL, W/EGFR (64315) E CP - Medicare (CPT-G0166) E CP Commercial (CPT-73561) Nir Rothman MD Cardiology: B P today: 138/85 P rior BP: 147/92 (05/06/2017) LHer updated medication list for this problem includes: Metoprolol Tartrate 50 Mg Oral Tablet (Metoprolol tartrate) ..... One tab. twice daily Lisinopril 10 Mg Oral Tablet (Lisinopril) ..... One tab. daily Orders: 9 9215 HIGH Complex (CPT-80774) L IPID PANEL (7600) C OMPREHENSIVE METABOLIC PANEL, W/EGFR (51541) E CP - Medicare (CPT-G0166) E CP Commercial (CPT-34645) [facility] Cardiology:Check panel Nir Rothman MD [...] completed EKG Nir Rothman MD completed SNOMED-CT: 780071650 [id number] Current Medications Documented Nir Rothman MD completed EKG Nir Rothman MD completed SNOMED-CT: 854783102 259366 Current Medications Documented Nir Rothman MD completed EKG Nir Rothman MD completed SNOMED-CT: 955141402 788772 Current Medications Documented Nir Rothman MD completed Lipid Strip Nir Rothman MD completed EKG Nir Rothman MD completed SNOMED-CT: 152832757 369382 Current Medications Documented Nir Rothman MD completed EKG Nir Rothman MD completed
--- OUTSIDE RECORDS SUMMARY | 2025-03-08 16:04 | XMS_ITS | Referral Summary ---
Author Organization [facility] Address [address] [place] [id number] Care Team Providers Care Syrup Mixer Assistant Name Role Phone Unknown, Notinfile Primary Care [...] on file Legal Sex Female 8:03 AM DISPERSION MIXER Gender Identity Not on file Sexual Orientation [...] Comments THINPREP PAP Routine 01/03/2015 1:45 AM DISPERSION MIXER HEPATITIS PANEL, ACUTE Routine 10/31/2013 3:34 PM DISPERSION MIXER from Last 3 Months or Most Recently Relevant to Health Maintenance Results * ThinPrep Pap (01/03/2015 1:45 AM DISPERSION MIXER) Thin Prep Pap Smear SEE BELOW () 01/13 8:49 AM DISPERSION MIXER [facility] HISTORICAL RESULTS Comment: Perioperative Tech ThinPrep Cytology Final Report ThinPrep Pap Specimen Source Cervix/Endocervix Specimen Adequacy Satisfactory for interpretation, endocervical cells (transformation zone) present. Interpretation Negative for intraepithelial lesion or malignancy. 01/13/15 Imaging Analyst: RIVKA Benites(ASCP) 01/13/15 Verified By: RIVKA Benites(ASCP) electronic signature [facility], Department of Pathology For questions regarding this case, call ext. [phone] CPT Code(s) 87798 Clinical History LMP: [id number] : N : N IUD: N Hormone Therapy: N Postmenopausal: N Previous surgery date and type: N Hysterectomy: N Chemotherapy: N FARIDA Exposure: N Radiation: N Previous Abnormal Pap? Details: N Diagnostic or Screening Pap Test: Screening Performed by [facility], [address] [place] [id number] [email or web address], Blaze Weems MD - Lab. Director 01/03/2015 1:45 AM DISPERSION MIXER 01/03/2015 3:49 PM DISPERSION MIXER us Luis Saenz MD LAB PATHOLOGY ORDERABLE S Final Result [facility] HISTORICAL RESULTS * Hepatitis panel, acute (10/31/2013 3:34 PM DISPERSION MIXER) HepBsAg NONREACT NONREACTIVE 10/31/2013 5:55 PM DISPERSION MIXER [facility] HISTORICAL RESULTS Comment: Siemens CentaurXP using AMEYA (chemiluminescent immunoassay) technology. NONREACTIVE: IgM antibodies to Hepatitis B Surface antigen not detected. REACTIVE: IgM antibodies to Hepatitis B Surface antigen detected. Reactive results will be confirmed by neutralization testing. HBsAb (immune status) NONREACT NONREACTIVE 10/31/2013 5:46 PM DISPERSION MIXER [facility] HISTORICAL RESULTS Comment: Siemens CentaurXP using AMEYA (chemiluminescent immunoassay) technology. NONREACTIVE: IgM antibodies to Hepatitis B Surface antibody not detected. REACTIVE: IgM antibodies to Hepatitis B Surface antibody detected. Hep B core IgM NONREACT NONREACTIVE 3 6:40 PM DISPERSION MIXER [facility] HISTORICAL RESULTS Comment: Siemens CentaurXP using AMEYA (chemiluminescent immunoassay) technology. NONREACTIVE: IgM antibodies to Hepatitis B Core antigen not detected. EQUIVOCAL: IgM antibodies to Hepatitis B Core antigen may or may not be present. Obtain a new specimen and retest. REACTIVE: IgM antibodies to Hepatitis B Core antigen detected. Hep A IgM NONREACT NONREACTIVE 10/31/2013 6:40 PM DISPERSION MIXER [facility] HISTORICAL RESULTS Comment: Siemens CentaurXP using AMEYA (chemiluminescent immunoassay) technology. NONREACTIVE: IgM antibodies to Hepatitis A not detected. This does not exclude possibility of exposure to Hepatitis A or early acute infection. EQUIVOCAL:IgM antibodies to Hepatitis A may or may not be present. Suggest recollection and retest. REACTIVE: Antibodies to Hepatitis A detected. Hep C Ab NONREACT NONREACTIVE 10/31/2013 6:40 PM DISPERSION MIXER [facility] HISTORICAL RESULTS Comment: Siemens CentaurXP using AMEYA [...] to Hepatitis C detected. 10/31/2013 3:34 PM DISPERSION MIXER 10/31/2013 4:49 PM DISPERSION MIXER Luis Saenz MD LAB MICROBIOLOGY - GENE RAL ORDERABLES Final Result [facility] HISTORICAL RESULTS from Last 3 Months or Most Recently Relevant to Health Maintenance Insurance [facility] Care Teams Syrup Mixer Assistant Relationship Specialty Start Date End Date Unknown, Notinfile PCP - General 01/03/19
--- OUTSIDE RECORDS SUMMARY | 2025-03-08 16:05 | XMS_ITS | Clinical Summary ---
Author Organization [facility] Address [address] [place] [address] Care Team Providers Care Historical Manuscripts Curator Name Role Phone Valente Musa Boucher APRN-SHORT STORY WRITER Primary Care Provider Source Comments [facility],non-owned Affiliates and Associated Physician Practices is amultiple site organization consisting of ambulatory clinics and hospital sitesin [place], [place] and [place]. This disclosure is being madepursuant to the Care Everywhere program and may not contain all information available regarding this patient. Last updated [employer] [facility] Allergies No known active allergies Medications * [...] age to complete this topic Care Teams Historical Manuscripts Curator Relationship Specialty Start Date End Date Musa Victor, ROAD CREW MEMBER-SHORT STORY WRITER [address] [place] [address] PCP - General 06/07/20
--- OUTSIDE RECORDS SUMMARY | 2025-03-08 16:05 | XMS_ITS | Clinical Summary ---
Author Organization [facility] Address [address] [place] [phone] Care Team Providers Care Chair Finisher Name Role Phone Unknown, Notinfile Primary Care [...] on file Legal Sex Female 8:03 AM BEAUTY SPECIALIST Gender Identity Not on file Sexual Orientation [...] Comments THINPREP PAP Routine 01/03/2015 1:45 AM BEAUTY SPECIALIST HEPATITIS PANEL, ACUTE Routine 10/31/2013 3:34 PM BEAUTY SPECIALIST from Last 3 Months or Most Recently Relevant to Health Maintenance Results * ThinPrep Pap (01/03/2015 1:45 AM BEAUTY SPECIALIST) Thin Prep Pap Smear SEE BELOW () 01/13 8:49 AM BEAUTY SPECIALIST [facility] HISTORICAL RESULTS Comment: Senior Linux Unix Administrator ThinPrep Cytology Final Report ThinPrep Pap Specimen Source Cervix/Endocervix Specimen Adequacy Satisfactory for interpretation, endocervical cells (transformation zone) present. Interpretation Negative for intraepithelial lesion or malignancy. 01/13/15 Tuckpointer Cleaner Caulker: RIVKA Benites(ASCP) 01/13/15 Verified By: RIVKA Benites(ASCP) electronic signature [facility] Department of Pathology For questions regarding this case, call ext. [phone] CPT Code(s) 06788 Clinical History LMP: [id number] : N : N IUD: N Hormone Therapy: N Postmenopausal: N Previous surgery date and type: N Hysterectomy: N Chemotherapy: N FARIDA Exposure: N Radiation: N Previous Abnormal Pap? Details: N Diagnostic or Screening Pap Test: Screening Performed by [facility], [address] [place] [id number] [email or web address], Blaze Weems MD - Lab. Director 01/03/2015 1:45 AM BEAUTY SPECIALIST 01/03/2015 3:49 PM BEAUTY SPECIALIST Luis Saenz MD LAB PATHOLOGY ORDERABLE S Final Result [facility] HISTORICAL RESULTS * Hepatitis panel, acute (10/31/2013 3:34 PM BEAUTY SPECIALIST) HepBsAg NONREACT NONREACTIVE 10/31/2013 5:55 PM BEAUTY SPECIALIST [facility] HISTORICAL RESULTS Comment: Siemens CentaurXP using AMEYA (chemiluminescent immunoassay) technology. NONREACTIVE: IgM antibodies to Hepatitis B Surface antigen not detected. REACTIVE: IgM antibodies to Hepatitis B Surface antigen detected. Reactive results will be confirmed by neutralization testing. HBsAb (immune status) NONREACT NONREACTIVE 10/31/2013 5:46 PM BEAUTY SPECIALIST [facility] HISTORICAL RESULTS Comment: Siemens CentaurXP using AMEYA (chemiluminescent immunoassay) technology. NONREACTIVE: IgM antibodies to Hepatitis B Surface antibody not detected. REACTIVE: IgM antibodies to Hepatitis B Surface antibody detected. Hep B core IgM NONREACT NONREACTIVE 3 6:40 PM BEAUTY SPECIALIST [facility] HISTORICAL RESULTS Comment: Siemens CentaurXP using AMEYA (chemiluminescent immunoassay) technology. NONREACTIVE: IgM antibodies to Hepatitis B Core antigen not detected. EQUIVOCAL: IgM antibodies to Hepatitis B Core antigen may or may not be present. Obtain a new specimen and retest. REACTIVE: IgM antibodies to Hepatitis B Core antigen detected. Hep A IgM NONREACT NONREACTIVE 10/31/2013 6:40 PM BEAUTY SPECIALIST [facility] HISTORICAL RESULTS Comment: Siemens CentaurXP using AMEYA (chemiluminescent immunoassay) technology. NONREACTIVE: IgM antibodies to Hepatitis A not detected. This does not exclude possibility of exposure to Hepatitis A or early acute infection. EQUIVOCAL:IgM antibodies to Hepatitis A may or may not be present. Suggest recollection and retest. REACTIVE: Antibodies to Hepatitis A detected. Hep C Ab NONREACT NONREACTIVE 10/31/2013 6:40 PM BEAUTY SPECIALIST [facility] HISTORICAL RESULTS Comment: Siemens CentaurXP using AMEYA [...] to Hepatitis C detected. 10/31/2013 3:34 PM BEAUTY SPECIALIST 10/31/2013 4:49 PM BEAUTY SPECIALIST Luis Saenz MD LAB MICROBIOLOGY - [facility] ORDERABLES Final Result [facility] HISTORICAL RESULTS from Last 3 Months or Most Recently Relevant to Health Maintenance Insurance [facility] Care Teams Chair Finisher Relationship Specialty Start Date End Date Unknown, Notinfile PCP - General 01/03/19
[2025-03-08 16:11] LABS: Anion Gap 8 mmol/L (4-12); Blood Urea Nitrogen 11 mg/dL (7-17); Calcium 8.9 mg/dL (8.4-10.2); Carbon Dioxide 29 mmol/L (22-30); Chloride 97 mmol/L (98-107); Estimated CRCL calculation 79 ml/min; Estimated Glomerular Filt Rate > 60; Glucose 312 mg/dL (65-110); Potassium 4.2 mmol/L (3.4-5.0); Sodium 134 mmol/L (137-145)
[2025-03-08 16:20] LABS: D Dimer 0.45 ug/mL (<0.48)
[2025-03-08] MEDS: BENZONATATE 100 MG CAPSULE PO (17:18)
[2025-03-08 17:24] VITALS: BP 126/72; PULSE 84; RESP 16; TEMP 36.8; O2SAT 95
== END 2025-03-08 17:25 | disposition home or self-care (01) ==
PROVIDERS: Emergency Provider Student in an Organized Health Care Education/Training Program; PCP Emergency Medicine
DX: J40 Bronchitis, not specified as acute or chronic (principal); J02.9 Acute pharyngitis, unspecified; E11.65 Type 2 diabetes mellitus with hyperglycemia; Z79.4 Long term (current) use of insulin; I10 Essential (primary) hypertension; Z86.718 Personal history of other venous thrombosis and embolism; Z79.01 Long term (current) use of anticoagulants
CPT/HCPCS: 36415; 71046; 80048; 85025; 85380; 87637; 99283; A9270; J8540

== ENCOUNTER 2025-03-12 20:34 | Emergency (ER) | payer OTHER, SELFPAY ==
--- NOTE | ~2025-03-12 | XR_ITS ---
EXAMINATION: XR chest 2V Exam Date/Time: 03/12/2025 21:29 CDT HISTORY: coughing x 1 week Comparison: 03/08/2025. RESULT: Lines, tubes, and devices: None. Lungs and pleura: Patchy subsegmental left lower lung opacities. No pleural effusion or pneumothorax . Cardiomediastinal silhouette: Stable. Other: No acute osseous or upper abdominal finding. IMPRESSION: Subsegmental left lower lobe atelectasis/consolidation. Reviewed, dictated and finalized at location K.
--- OUTSIDE RECORDS SUMMARY | 2025-03-12 20:36 | XMS_ITS | Encounter Summary ---
Author Organization [facility] Facility Care Team Providers Care Menagerie Caretaker Name Role Phone Unknown, Notinfile Primary Care Provider Unavail able Encounter Details Date Type Department Care Team (Latest Contact Info) Description 09/17/2015 Orders Only [facility] CLINCONV Provider, MD Natasha [address] [place] [id number] Social History Tobacco Use Types Packs/Day Years Used Date Smoking Tobacco: Never Assessed Comments Unknown Sex and Gender Information Value Date Recorded Sex Assigned at Not on file Legal Sex Female 8:03 AM ICING MIXER Gender Identity Not on file Sexual [...] documented as of this encounter Care Teams Menagerie Caretaker Relationship Specialty Start Date End Date Unknown, Notinfile PCP - General 01/03/19 documented as of this encounter
--- OUTSIDE RECORDS SUMMARY | 2025-03-12 20:37 | XMS_ITS | Clinical Summary ---
Author Organization [facility] Address [address] [address] [place] [address] Phone Care Team Providers Care Assembler Lay Ups Name Role Phone Mike Victor Primary Care Provider [phone] Allergies No known active allergies Medications Bismuth [...] Recently Relevant to Health Maintenance Insurance MEDICAID [facility] Care Teams Assembler Lay Ups Relationship Specialty Start Date End Date Mike Victor PA [address] [place] [address] PCP - General Physician Laborer [employer] 03/25/19
--- OUTSIDE RECORDS SUMMARY | 2025-03-12 20:37 | XMS_ITS | Referral Summary ---
Author Organization [facility] Address [address] [place] [id number] Care Team Providers Care Section Cutter Name Role Phone Unknown, Notinfile Primary Care [...] on file Legal Sex Female 8:03 AM ASSISTANT DIRECTOR OF NURSING Gender Identity Not on file Sexual Orientation [...] Comments THINPREP PAP Routine 01/03/2015 1:45 AM ASSISTANT DIRECTOR OF NURSING HEPATITIS PANEL, ACUTE Routine 10/31/2013 3:34 PM ASSISTANT DIRECTOR OF NURSING from Last 3 Months or Most Recently Relevant to Health Maintenance Results * ThinPrep Pap (01/03/2015 1:45 AM ASSISTANT DIRECTOR OF NURSING) Thin Prep Pap Smear SEE BELOW () 01/13 8:49 AM ASSISTANT DIRECTOR OF NURSING [facility] HISTORICAL RESULTS Comment: Footwear Stitcher ThinPrep Cytology Final Report ThinPrep Pap Specimen Source Cervix/Endocervix Specimen Adequacy Satisfactory for interpretation, endocervical cells (transformation zone) present. Interpretation Negative for intraepithelial lesion or malignancy. 01/13/15 Cans Vacuum Tester: RIVKA Benites(ASCP) 01/13/15 Verified By: RIVKA Benites(ASCP) electronic signature [facility], Department of Pathology For questions regarding this case, call [phone]. [phone] CPT Code(s) 40311 Clinical History LMP: 196217 : N : N IUD: N Hormone Therapy: N Postmenopausal: N Previous surgery date and type: N Hysterectomy: N Chemotherapy: N FARIDA Exposure: N Radiation: N Previous Abnormal Pap? Details: N Diagnostic or Screening Pap Test: Screening Performed by [employer], [address] [place] [id number] [email or web address], Blaze Weems MD - Lab. Director 01/03/2015 1:45 AM ASSISTANT DIRECTOR OF NURSING 01/03/2015 3:49 PM ASSISTANT DIRECTOR OF NURSING us Luis Saenz MD LAB PATHOLOGY ORDERABLE S Final Result [facility] HISTORICAL RESULTS * Hepatitis panel, acute (10/31/2013 3:34 PM ASSISTANT DIRECTOR OF NURSING) HepBsAg NONREACT NONREACTIVE 10/31/2013 5:55 PM ASSISTANT DIRECTOR OF NURSING [facility] HISTORICAL RESULTS Comment: Siemens CentaurXP using AMEYA (chemiluminescent immunoassay) technology. NONREACTIVE: IgM antibodies to Hepatitis B Surface antigen not detected. REACTIVE: IgM antibodies to Hepatitis B Surface antigen detected. Reactive results will be confirmed by neutralization testing. HBsAb (immune status) NONREACT NONREACTIVE 10/31/2013 5:46 PM ASSISTANT DIRECTOR OF NURSING [facility] HISTORICAL RESULTS Comment: Siemens CentaurXP using AMEYA (chemiluminescent immunoassay) technology. NONREACTIVE: IgM antibodies to Hepatitis B Surface antibody not detected. REACTIVE: IgM antibodies to Hepatitis B Surface antibody detected. Hep B core IgM NONREACT NONREACTIVE 3 6:40 PM ASSISTANT DIRECTOR OF NURSING [facility] HISTORICAL RESULTS Comment: Siemens CentaurXP using AMEYA (chemiluminescent immunoassay) technology. NONREACTIVE: IgM antibodies to Hepatitis B Core antigen not detected. EQUIVOCAL: IgM antibodies to Hepatitis B Core antigen may or may not be present. Obtain a new specimen and retest. REACTIVE: IgM antibodies to Hepatitis B Core antigen detected. Hep A IgM NONREACT NONREACTIVE 10/31/2013 6:40 PM ASSISTANT DIRECTOR OF NURSING [facility] HISTORICAL RESULTS Comment: Siemens CentaurXP using AMEYA (chemiluminescent immunoassay) technology. NONREACTIVE: IgM antibodies to Hepatitis A not detected. This does not exclude possibility of exposure to Hepatitis A or early acute infection. EQUIVOCAL:IgM antibodies to Hepatitis A may or may not be present. Suggest recollection and retest. REACTIVE: Antibodies to Hepatitis A detected. Hep C Ab NONREACT NONREACTIVE 10/31/2013 6:40 PM ASSISTANT DIRECTOR OF NURSING [facility] [employer] [facility] HISTORICAL RESULTS Comment: Siemens CentaurXP using AMEYA [...] to Hepatitis C detected. 10/31/2013 3:34 PM ASSISTANT DIRECTOR OF NURSING 10/31/2013 4:49 PM ASSISTANT DIRECTOR OF NURSING Luis Saenz MD LAB MICROBIOLOGY - GENE RAL ORDERABLES Final Result [facility] HISTORICAL RESULTS from Last 3 Months or Most Recently Relevant to Health Maintenance Insurance [facility] Care Teams Section Cutter Relationship Specialty Start Date End Date Unknown, Notinfile PCP - General 01/03/19
--- OUTSIDE RECORDS SUMMARY | 2025-03-12 20:37 | XMS_ITS | CONTINUITY OF CARE DOCUMENT ---
Author Name navdeep sethi Address Unknown Organization [facility] Address [address] [place] [address] [address] [place] [address] Phone [phone] Care Team Providers Care Irrigator Valve Pipe Name Role Phone Lorna CARNEY, Nir Kirby Unavailable JODY SPAIN Unavailable [phone] TRELL ELENA MD Unavailable [phone] PROBLEMS Condition Status Date Provider Notes DVT [...] Rothman MD Cardiology examination active Yoli drummond VC++ DEVELOPER ENCOUNTERS Date Type Provider Location Encounter Diag nosis - In-person encounter Office Visit Nir Rothman MD [facility] Cardiology examination - In-person encounter Office Visit Nir Rothman MD [facility] - In-person encounter Office Visit Nir Rothman MD [facility] GERD - In-person encounter Office Visit Nir Rothman MD [facility] - In-person encounter Office Visit Nir Rothman MD [facility] - In-person encounter Office Visit Omar Begum MD [facility] Family History Coronary Heart Disease female < 65:Family History of CVA or Stroke:Family History of Hyperlipidemia:Family History of Hypertension:Hypertension Leg painSnoringSLEEP APNEA;on rxChest pain-type to be determinedDiabetes Mellitus, Type II, uncontrolledFAMILY HISTORY OF HEART DISEASEExposure to SARS-associated coronavirus;neg iggScreeningHTN essential;neg angioPVD;ObesityNeuropath y - In-person encounter Office Visit Nir Rothman MD [facility] - In-person encounter Office Visit Nir Rothman MD [facility] - In-person encounter Office Visit Nir Rothman MD [facility] - In-person encounter Office Visit Nir Rothman MD [facility] - In-person encounter Office Visit Nir Rothman MD [facility] - In-person encounter Office Visit Nir Rothman MD [facility] SLEEP APNEA;on rx - In-person encounter Office Visit Raulito Acevedo MD [facility] - In-person encounter Office Visit Nir Rothman MD [facility] Diabetes, Type 2Hyperlipidemia VITAL SIGNS Date Observation Value Provider blood pressure, diastolic 84 mm[Hg] Han mikaela Wren blood pressure, systolic 122 mm[Hg] Charu peter Wren oxygen saturation, oximetry 100 % [facility] pulse rate 74 /min [facility] height E&M 61 [in_i] [facility] Body Mass Index (Ratio) 29.66 kg/m2 Tyree Rothman MD blood pressure, diastolic 123 mm[Hg] St piero Hernandez blood pressure, systolic 159 mm[Hg] Amairani Hernandez oxygen saturation, oximetry 97 % Renetta Hernandez pulse rate 74 /min eRnetta Hernandez weight E&M 157 [lb_av] Renetta Hernandez [...] dunlap pulse rate 77 /min Page Kia [facility] weight E&M 168 [lb_av] Page Perezangelrossi [facility] height E&M 61 [in_i] Page Adam [facility] Body Mass Index (Ratio) 31.55 kg/m2 Gracie [...] Tonsha Olivares temperature site temporal Diane Tank [facility] temperature E&M 97.1 [degF] Diane Tanks jame [...] [in_i] Tonsha Olivares temperature site temporal Diane [facility] temperature E&M 96.8 [degF] Diane [facility] Body Mass Index (Ratio) 31.55 kg/m2 Tyree Rothman MD blood pressure, diastolic 86 mm[Hg] [facility], systolic 109 mm[Hg] [facility] oxygen saturation, oximetry 98 % [facility] respiratory rate E&M 16 /min [facility] pulse rate 76 /min [facility] weight E&M 167 [lb_av] [facility] height E&M 61 [in_i] [facility] temperature site [facility] temperature E&M 97.3 [degF] Diane [facility] Body Mass Index (Ratio) 34.38 kg/m2 Tyree Rothman MD weight E&M 182 [lb_av] [facility] oxygen saturation, oximetry 98 % Gerson Potter blood pressure, diastolic 90 mm[Hg] Pablo Potter blood pressure, systolic 126 mm[Hg] Jenny Potter pulse rate 92 /min [facility]erson [facility] respiratory rate E&M 16 /min Gerson Potter height E&M 61 [in_i] [facility] Body Mass Index (Ratio) 35.33 kg/m2 Kimberly [...] [employer] 3.5-5.2 sodium, serum 140 mmol/L [employer] [phone]/09/ 12 urea nitrogen/creatinine ratio, serum 19 [employer] [...] (3 mL) insulin pen active Yoli Ventimiglia VC++ DEVELOPER Farxiga 10 mg tablet active Yoli Ventimiglia VC++ DEVELOPER rosuvastatin 40 mg tablet active Yoli Ventimiglia VC++ DEVELOPER fluticasone propionate 50 mcg/actuation spray,suspension active Yoli Ventimiglia VC++ DEVELOPER famotidine 20 mg tablet active Yoli Ventimiglia VC++ DEVELOPER butalbital-acetamin ophen-caff 50-325-40 mg tablet active Yoli Ventimiglia VC++ DEVELOPER Eliquis 5 mg tablet active TAKE 1 TABLE T BY MOUTH TWICE DAILY 03/25 Manisha Gregory VASCEPA 1 GM ORAL CAPSULE completed 2 capsules by mouth twice daily Mckenzie Coupon Code: BIN# [id number], PCN# [id number], GRP# [id number], ID# [id number] 05/18 - 05/30 Linnea Keith RN Eliquis [...] history of marijuana use no Yoli Ventimiglia [facility] drug use no Yoli Ventimig guerita [facility] alcohol use no Yoli Ventimig guerita [facility] smoking status Never smoker [facility] Never smoker Nir lucas [...] Nir Rothman MD smoking status Never smoker [facility] social history E&M Patient has n ever smoked. Smoking History: P lorraine has never smoked. Nir Rothman MD social history reviewed E&M revi ewed - no changes required Nir Rothman MD smoking status Never smoker [facility] social history E&M Patient has n ever smoked. Smoking History: P lorraine has never smoked. Omar Begum MD social history reviewed E&M revi ewed - no changes required Omar Begum MD smoking status Never smoker [facility] smoking status Never smoker Nir lucas MD social history E&M Patient has n ever smoked. Smoking History: P lorraine has never smoked. Nir Rothman MD social history reviewed E&M revi ewed - no changes required Nir Rothman MD alcohol use no [facility] smoking status Never smoker [facility] social history reviewed E&M revi ewed - no changes required [facility] social [facility] reviewed E&M revi ewed - [...] MD FAMILY HISTORY Family Member Condition Mother [place] female <65 Mother Family History of Hy pertension: Mother Family History of Hy perlipidemia: Mother Family History of Di abetes: Mother Family History of CV A or Stroke: Mother Family History Coron shy Heart Disease female < 65: Father Family History Unkno wn INSURANCE PROVIDERS Payer name Policy type / Coverage type [place] [employer] party ID [place] MEDICA[employer] (2) Medicaid [id number] ADVANCE DIRECTIVES Name Date DISCUSSED - NO DECISION MADE TREATMENT PLAN Date Name Performer [id number],C, O n CPAP T he patient is using CPAP on a regular basis. The patient has been benefiting from therapy and should continue use. April 10, 2023 T he patient is using CPAP on a regular basis. The patient has been benefiting from therapy and should continue use. Nir Rothman MD [id number],C, C P noted had CT no PE has esophagitis and pericardial cyst. Recommend EGD and H.. pylori eval. Nir Rothman MD [id number],C, b oth legs have DVT started on eliquis 04/30/2020. Still has leg pain. Needs to see specialist for veins at [facility]. M ild leg edema. No Kinjal's. CONCLUSIONS: [...] 2020 S aw specialist in vascular at [facility]. Was given compression stockings for both legs. Advised her to schedule f/u. Remain on ELiquis. April 03, 2021 W ent to U was advised that there was no further treatment per her recollection. Recommended to remain on AC. S he should remain on compression stockings as well. April 10, 2023 s he went to [place] recently did not have a dvt study done there. will arrange for one Nir Rothman MD [id number],C, B P today: 130/80 P rior BP: [...] problem includes: Rosuvastatin 40 Mg Tablet (Rosuvastatin) Sims Marymimy [facility] Cardiology:The patie nt is using CPAP on a regular basis. The patient has been benefiting from therapy and should continue use. Sims Marymiglia [facility] Cardiology: b oth legs have DVT started on eliquis 04/30/2020. Still has leg pain. Needs to see specialist for veins at [facility]. M ild leg edema. No Kinjal's. CONCLUSIONS: [...] 2020 S aw specialist in vascular at [facility]. Was given compression stockings for both legs. Advised her to schedule f/u. Remain on ELiquis. April 03, 2021 W ent to U was advised that there was no further treatment per her recollection. Recommended to remain on AC. She should remain on compression stockings as well. April 10, 2023 s he went to [place] recently did not have a dvt study done there. will arrange for one May 06, 2023 1 . No evidence of a deep vein thrombosis of the lower extremities bilaterally. October 10, 2024 R melanie on Eliquis for AC Yoli Searsjonnyia VC++ DEVELOPER Cardiology:BP today 122/84 Amand michael Ventimiglia VC++ DEVELOPER Cardiology: m ild by rajni 2019 FINDINGS: [...] RAJNI DONE DOUBT VASCULAR THOUGH Yoli Marymiglia [facility] Cardiology: O n CPAP T he [...] Needs to see specialist for veins at [facility]. M ild leg edema. No Kinjal's. CONCLUSIONS: [...] 2020 S aw specialist in vascular at [facility]. Was given compression stockings for both legs. Advised her to schedule f/u. Remain on ELiquis. April 03, 2021 W ent to [facility] was advised that there was no further treatment per her recollection. Recommended to remain on AC. She should remain on compression stockings as well. April 10, 2023 s he went to [place] recently did not have a dvt study [...] Needs to see specialist for veins at [facility]. M ild leg edema. No Kinjal's. CONCLUSIONS: [...] 2020 S aw specialist in vascular at [facility]. Was given compression stockings for both legs. [...] 10, 2020 S specialist in vascular at [facility]. Was given compression stockings for both legs. [...] A1C. O rders: 9 9215 HIGH Complex (CPT-95017) C OMPREHENSIVE METABOLIC PANEL, W/EGFR (76137) L IPID PANEL (7600) H EMOGLOBIN A1c (496) [facility] Cardiology:This dago ent?s angina is disabling and in my opinion is not readily amenable to surgical intervention by PTCA or cardiac bypass because the patient's coronary anatomy is not readily amenable to such procedures. Will try ECP as she is having recurrent CP. O rders: E KG (CPT-86958) 9 9215 HIGH Complex (CPT-85561) C OMPREHENSIVE METABOLIC PANEL, W/EGFR (44095) L IPID PANEL (7600) H EMOGLOBIN A1c (496) E CP Commercial (CPT-89366) E CP - Medicare (CPT-G0166) [facility] Cardiology:The patie nt is using CPAP on [...] tab. 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 This patient?s angina is disabling and in my opinion is not readily amenable to surgical intervention by PTCA or cardiac bypass because the patient's coronary anatomy is not readily amenable to such procedures. O rders: 9 9215 HIGH Complex (CPT-39978) L IPID PANEL (7600) C OMPREHENSIVE METABOLIC PANEL, W/EGFR (29636) E CP - Medicare (CPT-G0166) E CP Commercial (CPT-01739) Nir Rothman MD Cardiology: B P today: 138/85 P rior BP: 147/92 (05/06/2017) LHer updated medication list for this problem includes: Metoprolol Tartrate 50 Mg Oral Tablet (Metoprolol tartrate) ..... One tab. twice daily Lisinopril 10 Mg Oral Tablet (Lisinopril) ..... One tab. daily Orders: 9 9215 HIGH Complex (CPT-76569) L IPID PANEL (7600) C OMPREHENSIVE METABOLIC PANEL, W/EGFR (67101) E CP - Medicare (CPT-G0166) E CP Commercial (CPT-85447) [facility] Cardiology:Check panel Nir Rothman MD [...] completed EKG Nir Rothman MD completed SNOMED-CT: [id number] Current Medications Documented Nir Rothman MD completed EKG Nir Rothman MD completed SNOMED-CT: 346715664 510337 Current Medications Documented Nir Rothman MD completed EKG Nir Rothman MD completed SNOMED-CT: 534790403 582509 Current Medications Documented Nir Rothman MD completed Lipid Strip Nir Rothman MD completed EKG Nir Rothman MD completed SNOMED-CT: 273485783 075392 Current Medications Documented Nir Rothman MD completed EKG Nir Rothman MD completed
--- OUTSIDE RECORDS SUMMARY | 2025-03-12 20:37 | XMS_ITS | Data Portability ---
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 Plan of Treatment Reminders Order Date Submit Date Provider Last Modified By Organization Details Last Modified Time Details Appointments None recorded. Lab influenza virus A + B + SARS-CoV- 2 (COVID19) Ag panel, rapid IA, upper respirato ry specimen 2024 025 [place] [address] In-Office Order, Internal Use Only DO Not Attach Compendium DO Not Attach Compendium, Do Not Delete/merge, [id number] 15:38:45 HbA1c (hemoglob in A1c), blood 2023 024 In-Office Order, Internal Use Only DO Not Attach Compendium DO Not Attach Compendium, Do Not Delete/merge, [id number] 4 17:07:40 HbA1c (hemoglob in A1c), blood 2023 024 [place] [address] In-Office Order, Internal Use Only DO Not Attach Compendium DO Not Attach Compendium, Do Not Delete/merge, [id number] 4 17:09:26 lipid panel, serum 2023 024 [facility], [address] [place] [address], [address], [place], [address], 4 07:14:38 CMP, serum or plasma 2023 024 [facility], [address], [address], [place], [address], 4 07:14:39 HbA1c (hemoglob in A1c), blood 2023 024 [place] [address] In-Office Order, Internal Use Only DO Not Attach Compendium DO Not Attach Compendium, Do Not Delete/merge, [id number] 15:53:39 TSH + free T4, serum 2023 024 [facility], [address], [address], [place], [address], 4 08:33:20 noninvasi ve colorecta l cancer DNA + occult blood screening , QL, stool 2022 023 [place] [address] [facility], [address], [address], [place], [address], 3 16:47:04 Referral ophthalmo logy, retina specialis t referral 2023 024 [email or web address], [address] , [place], [address], 5 17:01:28 Procedures None recorded. Surgeries None recorded. Imaging XR, knee, 3 view 2023 024 [email or web address], [address], [place], [address], 5 11:43:03 Medication Orders butalbita l-acetami nophen-ca ffeine 50 mg-325 mg-40 mg tablet 2024 025 [place] [address] [facility] #83875, [address], [place], [place], [id number], 5 15:38:43 amoxicill in 500 mg capsule 2023 [email or web address] [facility] #14117, [address], [place], [place], [id number], 4 16:59:35 butalbita l-acetami nophen-ca ffeine 50 mg-325 mg-40 mg tablet 2023 [facility] #17099, [address], [place], [place], [id number], 4 17:07:57 Basaglar KwikPen U-100 Insulin 100 unit/mL (3 mL) subcutane ous 2023 024 [facility] #21171, [address], [place], [place], [id number], 4 17:07:47 Farxiga 10 mg tablet 2023 024 [facility] #27026, [address], [place], [place], [id number], 4 17:10:13 Basaglar KwikPen U-100 Insulin 100 unit/mL (3 mL) subcutane ous 2023 024 [facility] #11511, [address], [place], [place], [id number], 4 17:09:29 ibuprofen 600 mg tablet 2023 024 [facility] #07469, [address], [place], [place], [id number], 4 17:04:50 Basaglar KwikPen U-100 Insulin 100 unit/mL (3 mL) subcutane ous 2023 024 [facility] #72133, [address], [place], [place], [id number], 15:53:29 alcohol swabs 2023 [facility] #58078, [address], [place], [place], [id number], 15:53:29 famotidin e 20 mg tablet 2023 [facility] #59074, [address], [place], [place], [id number], 15:53:31 apixaban 5 mg tablet 2023 [facility] #70596, [address], [place], [place], [id number], 15:53:30 pregabali n 150 mg capsule 2023 [facility] #03837, [address], [place], [place], [id number], 15:53:32 Patient TargetsNo targets recorded. Patient Instructions Encounter Date Encounter Id Patient Instructions Last Modified By Organization Details Last Modified Time 07/14/2024 [id number] back care and preventing injuries: care instructions [email or web address] Not available 07/14/2024 15:53:24 gastroesophageal reflux disease (GERD): care instructions [email or web address] Not available 07/14/2024 15:53:23 high cholesterol : care instructions [email or web address] Not available 07/14/2024 15:53:23 hypothyroidism: care instructions [email or web address] Not available 07/14/2024 15:53:23 neuropathic pain : care instructions [email or web address] Not available 07/14/2024 15:53:23 08/25/2024 [id number] A healthy lifest yle: care instructions [email or web address] Not available 08/25/2024 18:15:58 learning about t ype 2 diabetes Not available 08/25/2024 17:09:20 type 2 diabetes: care instructions [email or web address] Not available 08/25/2024 17:09:20 10/06/2024 [id number] headache: care instructions [email or web address] Not available 10/06/2024 17:07:40 learning about t ype 2 diabetes [email or web address] Not available 10/06/2024 16:57:54 type 2 diabetes: care instructions [email or web address] Not available 10/06/2024 16:57:54 Reason for Referral [...] rakesh consu ltati on, pleas e call [phone]. ===== ===== ===== ===== ===== ===== ===== ===== ===== ===== ===== ===== ===== === Not Available [facility] ([facility]) [address] [place], [address], 06/04/2023 15:11:00 05/28/20 23 06/04/2023 COMPL IANCE DRUG JAKUB SIS, UR pdf . Not Available [facility] ([facility]) [address] [place], [address], 06/04/2023 15:11:00 07/14/20 24 07/15/2024 LIPID PANEL cholesterol, total 350 mg/dL 100-19 9 above high normal Not Available [facility] ([facility]) [address] [place], [address], 07/15/2024 07:14:38 07/14/20 24 07/15/2024 LIPID PANEL triglyceride s 416 mg/dL 0-149 above high normal Not Available [facility] ([facility]) [address] [place], [address], 07/15/2024 07:14:38 07/14/20 24 07/15/2024 LIPID PANEL HDL cholesterol 64 mg/dL >39 Not Available [facility] ([facility]) [address] [place], [address], 07/15/2024 07:14:38 07/14/20 24 07/15/2024 LIPID PANEL VLDL cholesterol rakesh 86 mg/dL 5-40 above high normal Not Available [facility] ([facility]) [address] [place], [address], 07/15/2024 07:14:38 07/14/20 24 07/15/2024 LIPID PANEL LDL chol calc ([facility]) 200 mg/dL 0-99 above high normal Not Available [facility] ([facility]) [address] [place], [address], 07/15/2024 07:14:38 07/14/20 24 07/15/2024 LIPID PANEL LDL calc comment: COMMEN T Consi whitney evalu ating for Famil ial Hyper mallorie stero lemia (FH), if clini kamilah indic ated. Not Available [facility] ([facility]) [address] [place], [address], 07/15/2024 07:14:38 07/14/20 24 07/15/2024 COMP. METAB OLIC PANEL (14) glucose 437 mg/dL 70-99 above high normal Not Available [facility] ([facility]) [address] [place], [address], 07/15/2024 07:14:39 07/14/20 24 07/15/2024 COMP. METAB OLIC PANEL (14) BUN 18 mg/dL 6-24 Not Available [facility] ([facility]) [address] [facility] [place], [address], 07/15/2024 07:14:39 07/14/20 24 07/15/2024 COMP. METAB OLIC PANEL (14) creatinine 0.78 mg/dL 0.57-1 .00 Not Available [facility] ([facility]) [address] [facility] [place], [address], 07/15/2024 07:14:39 07/14/20 24 07/15/2024 COMP. METAB OLIC PANEL (14) eGFR 91 mL/mi n/1.7 3 >59 Not Available [facility] ([facility]) [address] [facility] [place], [address], 07/15/2024 07:14:39 07/14/20 24 07/15/2024 COMP. METAB OLIC PANEL (14) BUN/creatini ne ratio 23 9-23 Not Available [facility] ([facility]) [address] [facility] [place], [address], 07/15/2024 07:14:39 07/14/20 24 07/15/2024 COMP. METAB OLIC PANEL (14) sodium 134 mmol/ L 134-14 4 Not Available [facility] ([facility]) [address] [facility] [place], [address], 07/15/2024 07:14:39 07/14/20 24 07/15/2024 COMP. METAB OLIC PANEL (14) potassium 4.5 mmol/ L 3.5-5. 2 Not Available [facility] ([facility]) [address] [facility] [place], [address], 07/15/2024 07:14:39 07/14/20 24 07/15/2024 COMP. METAB OLIC PANEL (14) chloride 97 mmol/ L 96-106 Not Available [facility] ([facility]) [address] [facility] [place], [address], 07/15/2024 07:14:39 07/14/20 24 07/15/2024 COMP. METAB OLIC PANEL (14) carbon dioxide, total 21 mmol/ L 20-29 Not Available [facility] ([facility]) [address] [facility], [place], [address], 07/15/2024 07:14:39 07/14/20 24 07/15/2024 COMP. METAB OLIC PANEL (14) calcium 9.8 mg/dL 8.7-10 .2 Not Available [facility] ([facility]) [address] [facility], [place], [address], 07/15/2024 07:14:39 07/14/20 24 07/15/2024 COMP. METAB OLIC PANEL (14) protein, total 7.2 g/dL 6.0-8. 5 Not Available [facility] ([facility]) [address] [facility], [place], [address], 07/15/2024 07:14:39 07/14/20 24 07/15/2024 COMP. METAB OLIC PANEL (14) albumin 4.2 g/dL 3.8-4. 9 Not Available [facility] ([facility]) [address] [facility], [place], [address], 07/15/2024 07:14:39 07/14/20 24 07/15/2024 COMP. METAB OLIC PANEL (14) globulin, total 3.0 g/dL 1.5-4. 5 Not Available [facility] ([facility]) [address] [facility], [place], [address], 07/15/2024 07:14:39 07/14/20 24 07/15/2024 COMP. METAB OLIC PANEL (14) bilirubin, total <0.2 mg/dL 0.0-1. 2 Not Available [facility] ([facility]) [address] [facility], [place], [address], 07/15/2024 07:14:39 07/14/20 24 07/15/2024 COMP. METAB OLIC PANEL (14) alkaline phosphatase 85 IU/L 44-121 Not Available [facility]) [address] [place], [address], 07/15/2024 07:14:39 07/14/20 24 07/15/2024 COMP. METAB OLIC PANEL (14) AST (SGOT) 13 IU/L 0-40 Not Available [facility] ([facility]) [address] [place], [address], 07/15/2024 07:14:39 07/14/20 24 07/15/2024 COMP. METAB OLIC PANEL (14) ALT (SGPT) 14 IU/L 0-32 Not Available [facility] ([facility]) [address] [place], [address], 07/15/2024 07:14:39 07/14/20 24 07/15/2024 TSH+F REE T4 TSH 2.400 uIU/m L 0.450- 4.500 Not Available [facility] ([facility]) [address] [place], [address], 07/15/2024 08:33:20 07/14/20 24 07/15/2024 TSH+F REE T4 T4,free(dire ct) 1.20 NG/dL 0.82-1 .77 Not Available [facility] ([facility]) [address] [place], [address], 07/15/2024 08:33:20 07/14/20 24 07/14/2024 HbA1c (hemo globi n A1c), blood HbA1c 13 Not Available In-Office Order Internal Use Only DO Not Attach Compendium DO Not Attach Compendium, Do Not Delete/merge, [id number] 07/14/2024 15:38:35 08/25/20 24 08/25/2024 HbA1c (hemo globi n A1c), blood HbA1c 12.6 Not Available In-Office Order Internal Use Only DO Not Attach Compendium DO Not Attach Compendium, Do Not Delete/merge, [id number] 08/25/2024 16:57:29 10/06/20 24 10/06/2024 HbA1c (hemo globi n A1c), blood HbA1c 11.7 Not Available In-Office Order Internal Use Only DO Not Attach Compendium DO Not Attach Compendium, Do Not Delete/merge, [id number] 10/06/2024 17:03:16 03/02/20 25 03/02/2025 influ peace virus A + B + SARS- CoV-2 (COVI D19) Ag panel , rapid IA, upper respi rator y speci men Flu A negati ve Not Available In-Office Order Internal Use Only DO Not Attach Compendium DO Not Attach Compendium, Do Not Delete/merge, [id number] 03/02/2025 15:32:05 03/02/20 25 03/02/2025 influ peace virus A + B + SARS- CoV-2 (COVI D19) Ag panel , rapid IA, upper respi rator y speci men Flu B negati ve Not Available In-Office Order Internal Use Only DO Not Attach Compendium DO Not Attach Compendium, Do Not Delete/merge, [id number] 03/02/2025 15:32:05 03/02/20 25 03/02/2025 influ peace virus A + B + SARS- CoV-2 (COVI D19) Ag panel , rapid IA, upper respi rator y speci men Rapid SARS CoV 2 Ag, QL IA, respiratory specimen negati ve Not Available In-Office Order Internal Use Only DO Not Attach Compendium DO Not Attach Compendium, Do Not Delete/merge, [id number] 03/02/2025 15:32:05 03/27/20 23 03/27/2023 CT, abdom en + pelvi s, w/o contr ast No observ ation record ed. [address], [place], [address], 04/01/2023 10:59:30 04/28/20 23 04/27/2023 XR, chest No observ ation record ed. [place] [address], [place], [address], 04/28/2023 15:54:47 04/28/20 23 04/27/2023 CT, abdom en + pelvi s, w/ contr ast No observ ation record ed. [place] [address], [place], [address], 04/28/2023 15:55:12 05/06/20 23 05/06/2023 imagi ng/di agnos tic resul t No observ ation record ed. [address] [facility] [address], [place], [address], 05/07/2023 12:10:51 05/06/20 23 05/06/2023 imagi ng/di agnos tic resul t No observ ation record ed. [address] [facility] [address], [place], [address], 05/07/2023 12:11:26 05/06/20 23 05/06/2023 imagi ng/di agnos tic resul t No observ ation record ed. [email or web address] [facility] [address], [place], [address], 05/07/2023 12:12:47 12/16/19 24 12/16/2023 CT, thora cic spine , w/o contr ast No observ ation record ed. [place] [address], [place], [address], 12/23/2023 05:50:31 12/23/19 24 12/23/2023 XR, chest , 2 view No observ ation record ed. [place] [address], [place], [address], 12/29/2023 18:02:45 09/30/20 24 09/30/2024 XR, chest , 2 view No observ ation record ed. [place] [address], [place], [address], 09/30/2024 17:56:07 09/30/20 24 09/30/2024 CT, angio gram, chest + abdom en + pelvi s, w/ contr ast No observ ation record ed. [place] [address] [facility] [address], [place], [address], 10/04/2024 16:22:02 09/30/20 24 09/30/2024 exerc ise stres s test No observ ation record ed. [place] [address] [facility] [address], [place], [address], 10/04/2024 16:24:37 09/30/20 24 09/30/2024 US, doppl er echoc ardio gram, w/ color flow No observ ation record ed. [place] [address] [facility] [address], [place], [address], 10/04/2024 16:21:12 Result Notes None recorded. Problems Name Problem SNOMED Code Status Onset Date Resolution Date Notes Provider Name and Address Organization Details Recorded Time Pain of right shoulder joint 12993919642 962711 Active 2016 Not Available [facility] 15:15:39 Sleep apnea 82280906 Active 2017 Not Available [facility] 15:15:39 Pain in right hip joint 34323601411 9102 Active 2017 Not Available [facility] 15:15:39 Steatosis of liver 381050652 Active [address] 2018 Not Available [facility] 15:15:39 Type 2 diabetes mellitus 32001874 Active 2017 Not Available [facility] 15:15:39 Chronic idiopathi c constipat ion 91661115 Active 2017 Not Available [facility] 15:15:39 Acute sinusitis 88236723 Active 2017 Not Available [facility] 15:15:39 Muscle spasm of thoracic back 19761595546 9106 Active 2017 Not Available [facility] 1 15:15:39 Pain in lower limb 24941352 Active 2018 Not Available [facility] 1 15:15:39 Rectal pain 67917838 Active 2018 Not Available [facility] 1 15:15:39 Vaginitis 62615520 Active 2018 Not Available [facility] 1 15:15:[address] pylori gastroint estinal tract infection 734817526 Active 2018 Not Available [facility] 1 15:15:39 Disorder of scalp 585672738 Active 2018 [facility] 15:15:39 Hearing loss in left ear 22246311553 90953 Active 2018 Not Available [facility] 1 15:15:39 Pain of bilateral thighs 25305842726 423645 Active 2018 Not Available [facility] 1 15:15:39 Numbness and tingling sensation of skin 72562092108 2 Active 2018 Not Available [facility] 1 15:15:39 Impaired gastric emptying 088984060 Active 2018 Not Available [facility] 1 15:15:39 Acute bronchiti s 79798056 Active 2018 Not Available [facility] 1 15:15:39 Allergic rhinitis 99884343 Active 2018 Not Available [facility] 1 15:15:39 Neuropath y 398399198 Active 2018 Not Available [facility] 1 15:15:39 Bilateral acute deep vein thrombosi s of femoral veins 24097034568 9104 Active 2019 see ultrasoun d/ Duplex 04/30/2020 Not Available [facility] 15:15:38 Periphera l venous insuffici ency 25633405 Active 2019 see ultrasoun d 04/30/2020 . No DVT on 07/21/21 venous doppler Mike Victro PA-C Attn: [place], [address] , [place] [facility] 1 09:29:31 Deep venous thrombosi s of lower extremity 683601703 Active 2019 Not Available [facility] 1 15:15:39 Cramp in lower limb 470168571 Active 2019 Not Available [facility] 15:15:39 Pilonidal cyst 51574605 Active 2020 Not Available [facility] 1 15:15:39 SARS-CoV- 2 Active 2020 [facility] Available [facility] 15:15:39 Disorient ated 98759000 Active 2020 Not Available [facility] 15:15:39 Esophagit is 45406211 Active 2020 Not Available [facility] 15:15:39 Dysuria 99546339 Active 2020 Mike Victor PA-C Attn: Accounting ,[address] [place], [address] , [place] [facility] 1 16:29:52 CT of abdomen abnormal 45735164570 796297 Active 2020 Mike Victor PA-C Attn: Accounting ,[address] [place], [address] , [place] [facility] 1 16:36:12 Inguinal pain 463409599 Active 2020 Mike Victor PA-C Attn: Accounting ,[address] [place], [address] , [place] [facility] 1 17:25:56 Fracture of multiple ribs 6534005 Active 2021 Mike Victor PA-C Attn: Accounting ,[address] [place], [address] , [place] [facility] 2 10:05:19 Urine screening abnormal 050612346 Active 2021 Mike Victor PA-C Attn: Accounting ,[address], [place], [address] , [place] [facility] 2 11:42:39 Administr ation of pneumococ rakesh vaccine Active 2021 Mike Victor PA-C Attn: Accounting ,[address], [place], [address] , [place] [facility] 2 15:14:01 Administr ation of tetanus vaccine Active 2021 Mike Victor PA-C Attn: Accounting ,[address], [place], [address] , [place] [facility] 2 15:14:38 Lower back injury 601127322 Active 2021 Mike Victor PA-C Attn: Accounting ,[address], [place], [address] , [place] [facility] 2 12:57:28 Spondylos is 9630410 Active [address] cervical spine 08/25/2022 . also lumbar spondylos is same date Mike Victor PA-C Attn: Accounting ,[address], [place], [address] , [place] [facility] 2 17:28:47 Sinusitis 08653894 Active 2021 Juanito Elena MD Attn: Accounting ,[address], [place], [address] , [place] [facility] 2 10:36:35 Injury of musculosk eletal system 326743061 Active 2021 Juanito Elena MD Attn: Accounting ,[address], [place], [address] , [place] [facility] 2 10:37:33 Diabetes mellitus 12040162 Active Not Available [facility] 15:15:39 Hyperlipi demia 02097508 Active Not Available [facility] 15:15:39 Hypertens pancho disorder 93576716 Active Not Available [facility] 15:15:39 Nausea 864709174 Active Not Available [facility] 15:15:39 Gastroeso phageal reflux disease 378659365 Active Not Available [facility] 15:15:39 Obesity 451621706 Active Not Available [facility] 15:15:38 Hypothyro idism 36540290 Active Not Available [facility] 15:15:39 Headache 49293112 Active Not Available [facility] 15:15:39 Pain of left knee region 22607254620 4109 Active 2023 Juanito Elena MD Attn: Accounting ,[address], [place], [address] , [place] [facility] 4 16:58:06 Pain of ear 149475531 Active 2023 Juanito Elena MD Attn: Accounting ,[address], [place], [address] , [place] [facility] 4 16:53:38 Viral syndrome 430276174 Active 2024 Juanito Elena MD Attn: Accounting ,[address], [place], [address] , [place] [facility] 5 15:31:15 Bronchiti s 21707956 Active Not Available [facility] 15:15:39 Asthma 491210801 Active Not Available [facility] 15:15:39 Gastritis 2583403 Active Not Available [facility] 15:15:39 Left lower quadrant pain 342775079 Active Not Available [facility] 15:15:39 Anxiety 25612576 Active Not Available [facility] 15:15:39 Acute pharyngit is 589225699 Active Not Available [facility] 15:15:38 Vaginitis and vulvovagi nitis Active Not Available [facility] 15:15:39 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 Active Not Available [facility] 15:15:39 Low back pain 262493357 Active Not Available [facility] 15:15:39 Painful urging to urinate 17120007 Active Not Available [facility] 15:15:39 Dental abscess 630111745 Active Not Available [facility] 15:15:38 Hand eczema 980638749 Active Not Available [facility] 15:15:39 Inflammat ion of joint of shoulder region 643035202 Active 2016 Not Available [facility] 15:15:39 Sciatica 03622998 Active 2016 Not Available [facility] 15:15:39 Administr ation of influenza vaccine Active 2016 Not Available [facility]ending [facility] 15:15:39 Problem Notes None recorded. Procedures Surgical History Date Name Laterality Status Provider Name and Address Organization Details Recorded Time Caesarean Section completed Alayna Leger [place] [facility] 02/09/2015 14:44:14 Imaging Results Imaging Date Name Status LastModified by Organiz ation Details LastModified Time 03/27/2023 CT, abdomen + pelvis, w/o contrast completed [address], [address], 04/01/2023 10:59:30 04/27/2023 XR, chest completed [address], [address], 04/28/2023 15:54:47 04/27/2023 CT, abdomen + pelvis, w/ contrast completed [address], [address], 04/28/2023 15:55:12 05/06/2023 imaging/diagn ostic result completed [email or web address] [facility] [address], [place], [address], 05/07/2023 12:10:51 05/06/2023 imaging/diagn ostic result completed [email or web address] [facility] [address], [place], [address], 05/07/2023 12:11:26 05/06/2023 imaging/diagn ostic result completed [address] [facility] [address], [place], [address], 05/07/2023 12:12:47 12/16/2023 CT, thoracic spine, w/o contrast completed [address] [place] [address], [address], 12/23/2023 05:50:31 12/23/2023 XR, chest, 2 view completed [address], [address], 12/29/2023 18:02:45 09/30/2024 XR, chest, [address] view [address], [address], 09/30/2024 17:56:07 09/30/2024 CT, angiogram, chest + abdomen + pelvis, w/ contrast completed [address], [address], 10/04/2024 16:22:02 09/30/2024 exercise stress test completed [address], [address], 10/04/2024 16:24:37 09/30/2024 US, doppler echocardiogra m, w/ color flow completed [address], [address], 10/04/2024 16:21:12 Procedure Notes None recorded. Medical [...] nophen-ca ffeine 50 mg-325 mg-40 mg tablet TAKE 1 TABLET BY MOUTH AT ONSET OF HEADACHE . MAY REPEAT IN 30-60 MINUTES. IF NO IMPROVEM ENT active Not Available Not Available No t Available amoxicill in 500 mg tablet TAKE 1 [...] Available Not Available Not Available benzonata te 100 mg capsule TAKE 1 CAPSULE BY MOUTH TWICE DAILY NEEDED FOR COUGH active Not Available Not Available No t Available doxycycli ne monohydra te 100 mg [...] completed Not Available Not Available Not Available [facility] 262 mg tablet Take 1 tablet [...] with needle 1 mL 30 gauge x 06/14 USE DIRECTED 03/03 completed Not Available Not Available Not Available methylpre dnisolone 4 mg tablets in a dose pack FOLLOW PACKAGE DIRECTIO NS active Not Available Not Available No t Available albuterol sulfate HFA 90 mcg/actua tion aerosol inhaler INHALE 1 PUFF BY MOUTH FOUR TIMES DAILY NEEDED FOR SHORTNES S OF BREATH OR WHEEZING active Not Available Not Available No t [...] Not Available Not Available No t Available Pennsaid 20 mg/gram/a ctuation (2 %) topical [...] Available OneTouch Delica Plus Lancet 33 gauge TEST THREE TIMES DAILY active Not Available Not Available No t Available [facility] 75 mg disintegr ating tablet 03/03 completed Not Available Not Available Not Available OneTouch Verio Reflect Meter FOLLOW PACKAGE DIRECTIO NS active Not Available Not Available No t Available Vitals Date Recorded Body height Provider Name an d Address Organization Details Last Updated DateTime 03/03/2023 152.4 cm Chantell Hall MA [facility] 3 15:48:47 Date Recorded Body height Body mass index (BMI) Body weight Oxygen saturation Oxygen saturation in Arterial blood by Pulse oximetry Heart rate Systolic blood pressure Diastolic blood pressure Provider Name and Address Organization Details Last Updated DateTime 4 152.4 cm 30.3 kg/m2 84839.8 2 g 98 % 98 % 80 /min 132 mm[Hg] 86 mm[Hg] Chantell Hall MA [facility] 4 15:13:51 Date Recorded Body height Heart rate Oxygen saturation Oxygen saturation in Arterial blood by Pulse oximetry Body mass index (BMI) Body weight Systolic blood pressure Diastolic blood pressure Provider Name and Address Organization Details Last Updated DateTime 4 152.4 cm 83 /min 95 % 95 % 31.3 kg/m2 33126.2 1 g 149 mm[Hg] 93 mm[Hg] Salomón Victor MA [facility] 4 16:30:33 Date Recorded Body height Body mass index (BMI) Body weight Heart rate Oxygen saturation Oxygen saturation in Arterial blood by Pulse oximetry Systolic blood pressure Diastolic blood pressure Provider Name and Address Organization Details Last Updated DateTime 4 152.4 cm 32 kg/m2 52097.1 5 g 74 /min 98 % 98 % 124 mm[Hg] 76 mm[Hg] Salomón Victor MA [facility] 4 16:01:43 Date Recorded Body height Provider Name an d Address Organization Details Last Updated DateTime 03/02/2025 152.4 cm Salomón Victor MA [facility] 03/02/2025 14:57:40 Social History Question Answer Notes LastModified by Organizat ion Details LastModified Time Tobacco Smoking Status Never Smoker Alayna Leger MA [facility], [place] - [facility] 02/09/2015 14:47:36 Do You Have An Advance [...] 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 [id number] Information not available 03/04/2021 Do You Use [...] available 2014 16:59:59 Medical History Condition Response Diabetes Y High Blood Pressure Y Headaches Y High Cholesterol Y Gynecological HistoryNo gynecological history recorded. Obstetrics History GPAL:G 0 P 0 0 0 0 Immunizations Vaccine Type Date Status Note Provider Nam e and Address Organization Details Recorded Time Influenza, split virus, quadrivalent, preservative 0 completed Not Available Pending sale to [facility] 07/03/2021 15:15:40 COVID-19, mRNA, LNP-S, PF, 100 mcg/0.5mL dose or 50 mcg/0.25mL dose 1 completed JOEL Luc[place], [place] - [facility] 05/22/2022 14:56:23 COVID-19, mRNA, LNP-S, PF, 100 mcg/0.5mL dose or 50 mcg/0.25mL dose 2 completed JOEL [place], [place] [facility] 05/22/2022 14:56:34 Influenza, split virus, quadrivalent, preservative 6 completed Not Available [facility] 12/17/2019 02:47:51 Influenza, split virus, quadrivalent, preservative 7 completed [facility] 12/17/2019 02:34:24 Influenza, split virus, quadrivalent, PF 8 completed Not [facility] 12/17/2019 02:39:54 Influenza, split virus, quadrivalent, preservative 9 completed Not Available [facility] 12/17/2019 02:38:15 Influenza, split virus, quadrivalent, preservative 1 completed Debbie Del Castillo [place], [place] [facility] 09/13/2021 16:48:37 Tdap 2 completed JOEL [place] [facility] 05/22/2022 15:37:06 Pneumococcal conjugate PCV 13 2 completed Debbie Del Castillo [place] [facility] 05/22/2022 15:40:48 COVID-19, mRNA, LNP-S, PF, 100 mcg/0.5mL dose or 50 mcg/0.25mL dose 2 completed Eli Yates [place], [place] [facility] 07/30/2022 10:34:35 Past Encounters Encounter ID Performer Location Encounter Start Date Encounter Closed Date Diagnosis/Indication Diagnosis SNOMED-CT Code Diagnosis ICD10 Code Diagnosis Note [id number] JOEL Cota (Adult Med) [address] [place] [address] 54001-936 0 02/09/2015 14:17:40 02/09/2015 15:23:02 Diabetes mellitus 56377972 Hyperlipidemia 76351203 Hypertensive disorder 96719366 Nausea 800239266 Gastroesop hageal reflux disease 747887506 Obesity 494714269 Hypothyroidism 22329369 Headache 25436452 [id number] JOEL Cota (Adult Med) [address] [place] [address] 78758-096 0 04/16/2015 15:29:59 04/16/2015 17:37:49 Hypertensive disorder 17015158 Nausea 920388515 Bronchitis 52968277 [id number] АННА Soria (Adult Med) [address] [place] [address] 87170-436 0 11/09/2015 15:12:01 11/09/2015 15:30:54 Asthma 199664202 J45.909 Gastritis 8249765 K29.70 [id number] АННА Soria (Adult Med) [address] [place] [address] 71918-502 0 02/25/2016 12:01:15 02/25/2016 12:54:52 Asthma 794933481 J45.909 Diabetes mellitus 750464 09 E11.9 Gastroesop hageal reflux disease 545135667 K21.9 Headache 86582482 R51 Hyperlipidemia 55305143 E78.5 Hypertensive disorder 38 242708 I10 Hypothyroidism 20360948 E03.9 Obesity 069197322 E66.9 Left lower quadrant pain 586857774 R10.32 Anxiety 09292423 F41.9 [id number] АННА Soria (Adult Med) [address] [place] [address] 67224-342 0 06/20/2016 15:53:31 06/20/2016 16:20:52 Acute pharyngitis 130862391 J02.9 Vaginitis and vulvovaginitis 240990886 N76.0 Bladder mu scle dysfunction - overactive 721400297 N32.81 Low back pain 766811240 M54.5 Asthma 234678749 J45.90 9 Painful ur ging to urinate 56333432 R30.0 [id number] АННА Soria (Adult Med) [address] [place] [address] 90574-298 0 08/21/2016 15:26:31 08/21/2016 16:03:02 Dental abscess 933491782 K04.7 Low back pain 459174848 M54.5 Obesity 124949240 E66.9 Hypothyroidism 19067884 E03.9 Hypertensive disorder 38 082990 I10 Hyperlipidemia 94876239 E78.5 Gastroesop hageal reflux disease 800222568 K21.9 Hand eczema 635774440 L3 0.9 Administra tion of influenza vaccine 12010134 Z23 [id number] АННА Soria (Adult Med) [address] [place] [address] 57181-792 0 02/06/2017 12:10:00 02/06/2017 12:47:05 Headache 31206645 R51 Low back pain 035679680 M54.5 Hypertensive disorder 38 429198 I10 Hypothyroidism 12675964 E03.9 Hyperlipidemia 88851751 E78.5 Diabetes mellitus 467023 09 E11.9 Vaginitis and vulvovaginitis 416680073 N76.0 Dental abscess 001753406 K04.7 left lower molar , cracked tooth [id number] АННА Soria (Adult Med) [address] [place] [address] 60120-820 0 03/27/2017 11:59:41 03/27/2017 13:11:05 Diabetes mellitus 30423061 E11.9 Hyperlipidemia 47710297 E78.5 Anxiety 54348921 F41.9 Obesity 360266778 E66.9 Hypothyroidism 95405372 E03.9 Hypertensive disorder 38 639156 I10 Low back pain 423047253 M54.5 Hand eczema 091830089 L3 0.9 Bladder mu scle dysfunction - overactive 718769428 N32.81 Gastroesop hageal reflux disease 856244003 K21.9 Asthma 324889462 J45.90 9 Inflammati on of joint of shoulder region 585078349 M13.933 [id number] АННА Soria (Adult Med) [address] [place] [address] 36181-009 0 07/07/2017 16:20:14 07/07/2017 16:57:45 Diabetes mellitus 91689946 E11.9 Hyperlipidemia 53394885 E78.5 Hypothyroidism 31678960 E03.9 Hypertensive disorder 38 237508 I10 Low back pain 709388318 M54.5 Headache 80508334 R51 Obesity 023927896 E66.9 [id number] АННА Soria (Adult Med) [address] [place] [address] 27586-482 0 09/15/2017 11:41:12 09/15/2017 12:49:44 Diabetes mellitus 50961158 E11.9 Low back pain 141986776 M54.5 Sciatica 86327686 M54.31 right worse than left Administra tion of influenza vaccine 32605436 Z23 Asthma 590206804 J45.90 9 Gastroesop hageal reflux disease 581144825 K21.9 Hand eczema 240946302 L3 0.9 Hypertensive disorder 38 487171 I10 Hypothyroidism 25939542 E03.9 Obesity 673448878 E66.9 Hyperlipidemia 97869605 E78.5 [id number] АННА Soria (Adult Med) [address] [place] [address] 67549-665 0 11/09/2017 14:42:58 11/10/2017 08:59:00 Hand eczema 880814893 L30.9 Diabetes mellitus 961744 09 E11.9 Pain of ri ght shoulder joint 6918506183 0774552 M25.511 Asthma 210608549 J45.90 9 Vaginitis and vulvovaginitis 588273627 N76.0 Hypothyroidism 89934111 E03.9 Low back pain 561139747 M54.5 [id number] ANJU ROMAN (Adult Med) [address] [place] [address] 16458-044 0 03/25/2018 11:24:56 03/25/2018 11:57:49 Streptococcal sore throat 45331008 J02.0 stop penicillin start augmentin x 10 daysstart prednisone x 3 daysdiscus sed impact of steroid on blood sugarsuse apap for sore throatDM is uncontroll ed currentlyf /u nir on DM [id number] АННА Soria (Adult Med) [address] [place] [address] 35135-047 0 05/06/2018 11:43:25 05/10/2018 09:46:17 Pain in right hip joint 7960084820 56330 M25.551 Sciatica 38793345 M54.31 right worse than left [id number] АННА Soria (Adult Med) [address] [place] [address] 09839-634 0 07/22/2018 15:52:27 07/22/2018 16:51:35 Hypertensive disorder 22687698 I10 Type 2 ren betes mellitus 30511370 E11.9 Chronic id iopathic constipation 24824347 K59.04 Acute sinusitis 94246060 J01.90 Muscle spa sm of thoracic back 4064479961 78533 M62.830 Sleep apnea 75839131 G47 .30 Inflammati on of joint of shoulder region 791843225 M13.811 Gastroesop hageal reflux disease 134206667 K21.9 Hypothyroidism 22315787 E03.9 Obesity 733195820 E66.9 Hyperlipidemia 59139615 E78.5 [id number] АННА Soria (Adult Med) [address] [place] [address] 15065-813 0 08/19/2018 16:03:29 08/23/2018 10:55:21 Diabetes mellitus 93075617 E11.9 Type 2 ren betes mellitus 23362266 E11.9 Administra tion of influenza vaccine 01281013 Z23 [id number] АННА Soria (Adult Med) [address] [place] [address] 86869-788 0 10/11/2018 10:30:30 10/12/2018 10:22:34 Acute sinusitis 49496105 J01.90 Low back pain 655402663 M54.5 Diabetes mellitus 623194 09 E11.9 Type 2 ren betes mellitus 22617909 E11.9 Sleep apnea 77973151 G47 .30 Hypothyroidism 41951448 E03.9 Hyperlipidemia 97444218 E78.5 Obesity 265163197 E66.9 [id number] АННА Soria (Adult Med) [address] [place] [address] 10895-200 0 03/03/2019 13:54:39 03/04/2019 09:04:53 Type 2 diabetes mellitus 52385496 E11.9 Gastroesop hageal reflux disease 830086297 K21.9 Low back pain 850069451 M54.5 Hypothyroidism 40900774 E03.9 Obesity 748175916 E66.9 Hyperlipidemia 22132361 E78.5 Diabetes mellitus 623441 09 E11.9 Nausea 842282951 R11.0 Chronic id iopathic constipation 85453634 K59.04 Pain in lower limb 62932 006 M79.669 Acute sinusitis 24449234 J01.90 Rectal pain 83173857 K62 .89 Sleep apnea 89982210 G47 .30 [id number] АННА Soria (Adult Med) [address] [place] [address] 31782-572 0 05/19/2019 14:47:48 05/19/2019 16:27:45 Pain in lower limb 78194189 M79.669 Type 2 ren betes mellitus 18771857 E11.9 Gastroesop hageal reflux disease 587137166 K21.9 Hypothyroidism 68342510 E03.9 Hyperlipidemia 16735791 E78.5 Vaginitis 36402208 N76.0 Nausea 346088412 R11.0 Steatosis of liver 10594 1007 K76.0 Sleep apnea 77230742 G47 .30 Low back pain 867874141 M54.5 Obesity 239360040 E66.9 [id number] АННА Soria (Adult Med) [address] [place] [address] 98231-682 0 06/21/2019 14:34:07 06/22/2019 08:52:46 Asthma 135205122 J45.909 Steatosis of liver 1007 K76.0 Gastroesop hageal reflux disease 332290185 K21.9 Hypothyroidism 41535879 E03.9 Obesity 808348731 E66.9 Hyperlipidemia 86550227 E78.5 Diabetes mellitus 306606 09 E11.9 Helicobact er pylori gastrointestinal tract infection 739623206 B96.81 Disorder of scalp 864799 006 L98.9 Hearing lo ss in left ear 9121229275 990170 H91.92 Type 2 ren betes mellitus 64912519 E11.9 Sleep apnea 82649877 G47 .30 Headache 92480898 R51 Low back pain 639700835 M54.5 Hypertensive disorder 38 783436 I10 [id number] АННА Soria (Adult Med) [address] [place] [address] 56083-363 0 08/08/2019 11:11:14 08/09/2019 15:45:59 Vaginitis 88560902 N76.0 Pain of bi lateral thighs 2722158011 6169042 M79.652 left greater than right Numbness a nd tingling sensation of skin 9246410702 02 R20.2 Headache 24893695 R51 a 10 on a scale of 1 to 10 ,, a nerve like shocking forehead Sciatica 30643933 M54.31 right worse than left Disorder of scalp 926061 006 L98.9 Helicobact er pylori gastrointestinal tract infection 254378116 B96.81 Type 2 ren betes mellitus 12548381 E11.9 Steatosis of liver 1007 K76.0 Asthma 127360420 J45.90 9 Gastroesop hageal reflux disease 895831058 K21.9 Low back pain 505376357 M54.5 Hypertensive disorder 38 441806 I10 Hypothyroidism 60882748 E03.9 Hyperlipidemia 56207068 E78.5 [id number] АННА Soria (Adult Med) [address] [place] [address] 08191-397 0 08/22/2019 17:23:23 08/22/2019 18:18:53 Acute bronchitis 61238205 J20.9 Type 2 ren betes mellitus 54210529 E11.9 Steatosis of liver 1007 K76.0 Sleep apnea 39198135 G47 .30 Asthma 156051176 J45.90 9 Gastroesop hageal reflux disease 878160920 K21.9 Bladder mu scle dysfunction - overactive 718445552 N32.81 Low back pain 807944641 M54.5 Hypothyroidism 40182469 E03.9 Hyperlipidemia 79352276 E78.5 Hypertensive disorder 38 598172 I10 [id number] АННА Soria (Adult Med) [address] [place] [address] 17793-263 0 09/20/2019 15:39:56 09/20/2019 17:24:14 Acute sinusitis 29972253 J01.90 Allergic rhinitis 280010 04 J30.9 Low back pain 093943954 M54.5 Type 2 ren betes mellitus 15924104 E11.9 Sciatica 96139397 M54.31 right worse than left Pain in ri ght hip joint 7608655201 88523 M25.551 Neuropathy 253912864 G62 .9 Administra tion of influenza vaccine 59582816 Z23 Pain of bi lateral thighs 1974989900 2714670 M79.652 left greater than right Steatosis of liver 1007 K76.0 Sleep apnea 38041721 G47 .30 Asthma 647152001 J45.90 9 Gastroesop hageal reflux disease 730529492 K21.9 Hypertensive disorder 38 160589 I10 Hypothyroidism 46650881 E03.9 Hyperlipidemia 57842032 E78.5 Diabetes mellitus 183022 09 E11.9 [id number] АННА Soria (Adult Med) [address] [place] [address] 28239-287 0 10/18/2019 15:26:23 10/18/2019 16:28:59 Sciatica 42753771 M54.31 right worse than left Allergic rhinitis 006790 04 J30.9 Anxiety 00880150 F41.9 Asthma 670110338 J45.90 9 Gastroesop hageal reflux disease 428954432 K21.9 Hyperlipidemia 62314150 E78.5 Hypothyroidism 47364098 E03.9 Hypertensive disorder 38 534264 I10 Neuropathy 675471132 G62 .9 Type 2 ren betes mellitus 41796992 E11.9 [id number] АННА Soria (Adult Med) [address] [place] [address] 63348-677 0 10/25/2019 10:16:11 10/26/2019 09:58:10 Numbness and tingling sensation of skin 0716846214 02 R20.2 Sciatica 01274693 M54.31 right worse than left Hyperlipidemia 33688931 E78.5 Hypothyroidism 33677716 E03.9 Type 2 ren betes mellitus 17132960 E11.9 Allergic rhinitis 433525 04 J30.9 Low back pain 437152684 M54.5 Sleep apnea 24273696 G47 .30 Neuropathy 191237068 G62 .9 Gastroesop hageal reflux disease 097519823 K21.9 Diabetes mellitus 932242 09 E11.9 [id number] АННА Soria (Adult Med) [address] [place] [address] 23629-362 0 07/03/2020 11:53:07 07/04/2020 10:41:59 Hypertensive disorder 03722563 I10 Type 2 ren betes mellitus 79386374 E11.9 Peripheral venous insufficiency 32102772 I87.2 Neuropathy 378952910 G62 .9 Diabetes mellitus 897087 09 E11.9 Steatosis of liver 05656 1007 K76.0 Sleep apnea 83620780 G47 .30 Allergic rhinitis 997412 04 J30.9 Anxiety 24948731 F41.9 Inflammati on of joint of shoulder region 966723905 M13.811 Asthma 240060406 J45.90 9 Bilateral acute deep vein thrombosis of femoral veins 1025140443 43449 I82.413 Chronic id iopathic constipation 30484160 K59.04 Deep venou s thrombosis of lower extremity 775413691 I82.409 Gastroesop hageal reflux disease 532888140 K21.9 Hyperlipidemia 18847145 E78.5 Hypothyroidism 81869668 E03.9 [id number] АННА Soria (Adult Med) [address] [place] [address] 08336-115 0 08/31/2020 12:10:00 08/31/2020 12:59:53 Hyperlipidemia 20703379 E78.5 Hypothyroidism 72137101 E03.9 Low back pain 650213397 M54.5 Nausea 593419002 R11.0 Obesity 662734502 E66.9 Peripheral venous insufficiency 50117604 I87.2 Sleep apnea 06273301 G47 .30 Type 2 ren betes mellitus 40370843 E11.9 Neuropathy 315504539 G62 .9 Allergic rhinitis 631657 04 J30.9 Asthma 236499506 J45.90 9 Chronic id iopathic constipation 46986462 K59.04 Gastroesop hageal reflux disease 842918022 K21.9 [id number] АННА Soria (Adult Med) [address] [place] [address] 17538-772 0 10/01/2020 08:00:39 10/01/2020 11:31:30 Allergic rhinitis 56220157 J30.9 Asthma 198458014 J45.90 9 Gastroesop hageal reflux disease 751697830 K21.9 Headache 65824392 R51.9 Anxiety 88769545 F41.9 Bilateral acute deep vein thrombosis of femoral veins 9953876104 40962 I82.413 Type 2 ren betes mellitus 76307984 E11.9 Steatosis of liver 23826 1007 K76.0 Sleep apnea 60600185 G47 .30 Peripheral venous insufficiency 57989414 I87.2 Neuropathy 119584724 G62 .9 [id number] АННА Soria (Adult Med) [address] [place] [address] 57533-882 0 11/13/2020 08:15:27 11/13/2020 16:49:12 Gastroesophageal reflux disease 532483927 K21.9 Low back pain 559815771 M54.5 Type 2 ren betes mellitus 29605953 E11.9 Neuropathy 213906364 G62 .9 Headache 74807785 R51.9 Sleep apnea 08632750 G47 .30 Peripheral venous insufficiency 10308699 I87.2 Hypothyroidism 17772621 E03.9 Hypertensive disorder 38 885386 I10 Hyperlipidemia 03563104 E78.5 Deep venou s thrombosis of lower extremity 245370656 I82.409 Chronic id iopathic constipation 34362413 K59.04 Asthma 156811642 J45.90 9 Anxiety 77583562 F41.9 Allergic rhinitis 552969 04 J30.9 [id number] АННА Soria (Adult Med) [address] [place] [address] 83895-653 0 12/14/2020 10:03:28 12/14/2020 16:25:28 Vaginitis 79320131 N76.0 Pilonidal cyst 27942468 L05.91 Type 2 ren betes mellitus 28190460 E11.9 Asthma 425814198 J45.90 9 Anxiety 83570989 F41.9 SARS-CoV-2 732241402 U07 .1 Allergic rhinitis 479409 04 J30.9 Chronic id iopathic constipation 17634527 K59.04 Deep venou s thrombosis of lower extremity 048996932 I82.409 Sleep apnea 39283357 G47 .30 Peripheral venous insufficiency 12382995 I87.2 Neuropathy 622519485 G62 .9 Low back pain 664169094 M54.5 Hypothyroidism 69026400 E03.9 Hypertensive disorder 38 301188 I10 Hyperlipidemia 25483420 E78.5 [id number] АННА Soria (Adult Med) [address] [place] [address] 37903-350 0 01/18/2021 08:10:12 01/21/2021 08:20:22 Pain in lower limb 46940340 M79.669 Disorientated 46203701 R 41.0 Impaired g astric emptying 717825765 K30 Hypertensive disorder 38 601091 I10 Hyperlipidemia 99987931 E78.5 Allergic rhinitis 083330 04 J30.9 Anxiety 36470324 F41.9 Inflammati on of joint of shoulder region 188989843 M13.811 Asthma 254296335 J45.90 9 Chronic id iopathic constipation 61069651 K59.04 Deep venou s thrombosis of lower extremity 793903451 I82.409 Gastroesop hageal reflux disease 149535166 K21.9 Hypothyroidism 87488542 E03.9 Low back pain 555245372 M54.5 Neuropathy 597429015 G62 .9 Peripheral venous insufficiency 11734294 I87.2 Sleep apnea 34048074 G47 .30 Steatosis of liver 06804 1007 K76.0 Type 2 ren betes mellitus 78237057 E11.9 [id number] АННА Soria (Adult Med) [address] [place] [address] 61975-923 0 02/01/2021 10:04:41 02/01/2021 16:28:43 Deep venous thrombosis of lower extremity 994591855 I82.409 Allergic rhinitis 244079 04 J30.9 Anxiety 11276625 F41.9 Asthma 703598282 J45.90 9 Chronic id iopathic constipation 77184187 K59.04 Cramp in lower limb 4499 03278 R25.2 Diabetes mellitus 348796 09 E11.9 Gastroesop hageal reflux disease 222598627 K21.9 Hyperlipidemia 10640197 E78.5 Hypertensive disorder 38 989885 I10 Hypothyroidism 28858520 E03.9 Low back pain 326929319 M54.5 Neuropathy 032547262 G62 .9 Pain of bi lateral thighs 8245067731 1045838 M79.652 left greater than right Peripheral venous insufficiency 07828979 I87.2 Sleep apnea 78890499 G47 .30 Steatosis of liver 1007 K76.0 Type 2 ren betes mellitus 11100916 E11.9 [id number] АННА Soria (Adult Med) [address] [place] [address] 85831-936 0 03/04/2021 08:24:18 03/04/2021 16:13:37 Diabetes mellitus 48159998 E11.9 Sleep apnea 20075609 G47 .30 [id number] АННА Soria (Adult Med) [address] [place] [address] 42557-166 0 04/05/2021 12:26:55 04/05/2021 15:08:17 Esophagitis 26835451 K20.90 Nausea 836028091 R11.0 Gastroesop hageal reflux disease 182724826 K21.9 Hyperlipidemia 53213033 E78.5 Hypothyroidism 04066410 E03.9 Type 2 ren betes mellitus 46712030 E11.9 Neuropathy 394004123 G62 .9 Asthma 155956691 J45.90 9 Allergic rhinitis 767041 04 J30.9 Sleep apnea 22920170 G47 .30 [id number] АННА Soria (Adult Med) [address] [place] [address] 07801-595 0 09/13/2021 15:38:35 09/13/2021 16:24:02 Administration of influenza vaccine 08476372 Z23 Type 2 ren betes mellitus 18714076 E11.9 Vaginitis 33207961 N76.0 Headache 56662678 R51.[address] of abdo men abnormal 7604498080 2099634 R93.5 Allergic rhinitis 528484 04 J30.9 Anxiety 07547075 F41.9 Asthma 627229764 J45.90 9 Deep venou s thrombosis of lower extremity 345068771 I82.409 Gastroesop hageal reflux disease 229349665 K21.9 Hyperlipidemia 44462208 E78.5 Hypertensive disorder 38 087005 I10 Hypothyroidism 80429431 E03.9 Low back pain 101236210 M54.50 Neuropathy 436589769 G62 .9 Peripheral venous insufficiency 03440240 I87.2 Sleep apnea 15054862 G47 .30 Steatosis of liver 16610 1007 K76.0 [id number] АННА Soria (Adult Med) [address] [place] [address] 26031-135 0 10/18/2021 17:11:30 10/21/2021 09:50:55 Inguinal pain 843952332 R10.2 right Type 2 ren betes mellitus 81898976 E11.9 Acute sinusitis 24488451 J01.90 Diabetes mellitus 561122 09 E11.9 Vaginitis 10618945 N76.0 Peripheral venous insufficiency 04763158 I87.2 Neuropathy 910086793 G62 .9 Low back pain 998992301 M54.50 Impaired g astric emptying 751475580 K30 Hypothyroidism 51384329 E03.9 Hypertensive disorder 38 570030 I10 Hyperlipidemia 88474860 E78.5 Gastroesop hageal reflux disease 728741911 K21.9 Deep venou s thrombosis of lower extremity 482599066 I82.909 [id number] АННА Soria (Adult Med) [address] [place] [address] 21214-895 0 04/17/2022 09:31:13 04/18/2022 09:12:04 Fracture of multiple ribs 4959756 S22.41XA upper anterior Gastroesop hageal reflux disease 789125368 K21.9 Neuropathy 456110368 G62 .9 Pain in ri ght hip joint 1981744908 24379 M25.551 Pain in lower limb 63026 006 M79.669 Rectal pain 46478007 K62 .89 Peripheral venous insufficiency 11332774 I87.2 Type 2 ren betes mellitus 40648821 E11.9 Headache 98244012 R51.9 Allergic rhinitis 193547 04 J30.9 Anxiety 08036004 F41.9 Asthma 324331888 J45.90 9 Chronic id iopathic constipation 54583013 K59.04 Hyperlipidemia 62508492 E78.5 Hypertensive disorder 38 395930 I10 Hypothyroidism 66228890 E03.9 Impaired g astric emptying 491915374 K30 Low back pain 997306677 M54.50 Sleep apnea 90199940 G47 .30 [id number] АННА Soria (Adult Med) [address] [place] [address] 80401-293 0 05/22/2022 14:41:57 05/26/2022 12:24:13 Administration of pneumococcal vaccine 77812652 Z23 Administra tion of tetanus vaccine 203666346 Z23 Deep venou s thrombosis of lower extremity 331766119 I82.409 Gastroesop hageal reflux disease 655141247 K21.9 Hyperlipidemia 20729613 E78.5 Hypothyroidism 72327119 E03.9 Neuropathy 362117876 G62 .9 Sleep apnea 06612504 G47 .30 Type 2 ren betes mellitus 06315662 E11.9 Headache 27388815 R51.9 Vaginitis 16160041 N76.0 Allergic rhinitis 318957 04 J30.9 Anxiety 45291738 F41.9 Inflammati on of joint of shoulder region 796526120 M13.811 Asthma 637980380 J45.90 9 Chronic id iopathic constipation 93786393 K59.04 Hypertensive disorder 38 894601 I10 Steatosis of liver 02724 1007 K76.0 [id number] Eli Rebolledo ez, JOEL SAAVEDRA (Peds) [address] [place] [address] 71214-661 0 07/30/2022 10:01:52 07/30/2022 12:56:10 Administration of SARS-CoV-2 mRNA vaccine 3254026773 Z23 [id number] MD Kayla Shore (Adult Med) [address] [place] [address] 22673-570 0 11/12/2022 10:04:07 11/13/2022 11:42:46 Morbid obesity 617204446 E66.01 Obesity 264162803 E66.9 Sinusitis 92999996 J32.9 Injury of musculoskeletal system [id number] T14.8XXA [id number] JOEL Seymour (Adult Med) [address] [place] [address] [phone] 03/03/2023 15:28:12 03/03/2023 16:24:17 Screening for malignant neoplasm of colon [id number] Z12.11 [id number] MD Kayla Shore (Adult Med) [address] [place] [address] [phone] 07/14/2024 14:53:51 07/15/2024 12:11:06 Gastroesophageal reflux disease [id number] K21.9 Hyperlipidemia 34343909 E78.5 Hypothyroidism 43495763 E03.9 Lower back injury 641030 005 S39.92XA Neuropathy 083961361 G62 .9 Deep venou s thrombosis of lower extremity 865515861 I82.409 Type 2 ren betes mellitus 28331031 E11.3213 [id number] MD Kayla Shore (Adult Med) [address] [place] [address] [phone] 08/25/2024 15:32:47 08/30/2024 12:18:14 Obesity 480403083 E66.8 Type 2 ren betes mellitus 81565609 E11.3213 Will increase Basaglar to 30U BID and increase to 35 U BID if FBG >130 mg/dl and add Farxiga 10 mg/d Pain of le ft knee region [id number] 62425 M25.748 [id number] MD Kayla Shore (Adult Med) [address] [place] [address] [phone] 10/06/2024 15:42:52 10/07/2024 11:42:28 Pain of ear 801144882 H92.09 Type 2 ren betes mellitus 50872498 E11.3213 Increase Basaglar to 40U BID. Cannot tolerate metformin Steatosis of liver 1007 K76.0 Headache 06613449 R51.9 [id number] Juanito Elena MD [facility] (Adult Med) [address] [place] [address] [phone] 03/02/2025 14:51:33 03/03/2025 15:57:55 Headache 05713907 R51.9 Viral syndrome [id number] B34.9 Health Concerns Section Related Observation LastModified by Organization Detai ls LastModified Time None Recorded Concern Status LastModified by Organization Details LastModified Time None Recorded Advance Directives Directive N: Payers Encounter Date Sequence Insurance Name Policy Number Policy Hernandez Covered Member ID Hernandez Member ID Guarantor Name 03/03/2023 1 [facility] ON OR AFTER 05/30/21 (MEDICAID REPLACEMENT - HMO) Madhavi Stein [id number] Madhavi Stein 07/14/2024 1 [facility] ON OR AFTER 05/30/21 (MEDICAID REPLACEMENT - HMO) Madhavi Stein [id number] Madhavi Stein 08/25/2024 1 [facility] ON OR AFTER 05/30/21 (MEDICAID REPLACEMENT - HMO) Madhavi Stein [id number] Madhavi Stein 10/06/2024 1 [facility] ON OR AFTER 05/30/21 (MEDICAID REPLACEMENT - HMO) Madhavi Stein [id number] Madhavi Stein 03/02/2025 1 [facility] ON OR AFTER 05/30/21 (MEDICAID REPLACEMENT - HMO) Madhavi Stein [id number] Madhavi Stein Notes Date Note Type Note Provider Name and Address Organization Details Recorded Time 07/14/2024 text/html Here for DM f/u .She has been off her meds for several months Juanito Elena MD Attn: [address] [place], [address], [place] [facility] 07/14/2024 15:55:26 08/25/2024 text/html Here for DM f/u. Currently using 27 U Basaglar BID as she had before. FBS averaging 200 mg/dl. Has pain in left knee one day ago Juanito Elena MD Attn: [address]ing[address] [facility], [place], [address], [facility] 08/25/2024 17:10:39 10/06/2024 text/html Here for routine f/u. FBG averaging 150-170mg/dl. She has noticed intermittent swelling of her ear and parotid region. Admitted six days ago for CP .Cardiac evaluation negative for acute cardiac ischemia Juanito Elena MD Attn: Accounting[address] [facility], [place], [address], [facility] 10/06/2024 17:08:40 03/02/2025 text/html Has has three da y history of pain, generalized baby ache and diarrhea Juanito Elena MD Attn: Accounting[address] [facility], [place], [address], [facility] 03/02/2025 15:39:51 OBGyn Episode No OBEpisode recorded.
--- OUTSIDE RECORDS SUMMARY | 2025-03-12 20:38 | XMS_ITS | Clinical Summary ---
Author Organization [facility] Address [address] [place] [phone] Care Team Providers Care Supervisor Scenic Arts Name Role Phone Unknown, Notinfile Primary Care [...] on file Legal Sex Female 8:03 AM AIRFRAME TECHNICIAN Gender Identity Not on file Sexual Orientation [...] Comments THINPREP PAP Routine 01/03/2015 1:45 AM AIRFRAME TECHNICIAN HEPATITIS PANEL, ACUTE Routine 10/31/2013 3:34 PM AIRFRAME TECHNICIAN from Last 3 Months or Most Recently Relevant to Health Maintenance Results * ThinPrep Pap (01/03/2015 1:45 AM AIRFRAME TECHNICIAN) Thin Prep Pap Smear SEE BELOW () 01/13 8:49 AM AIRFRAME TECHNICIAN [facility] HISTORICAL RESULTS Comment: Plugger ThinPrep Cytology Final Report ThinPrep Pap Specimen Source Cervix/Endocervix Specimen Adequacy Satisfactory for interpretation, endocervical cells (transformation zone) present. Interpretation Negative for intraepithelial lesion or malignancy. 01/13/15 Glassware Maker Demonstrator: RIVKA Benites(ASCP) 01/13/15 Verified By: RIVKA Benites(ASCP) electronic signature [facility] Department of Pathology For questions regarding this case, call ext. [phone] CPT Code(s) 34769 Clinical History LMP: [id number] : N : N IUD: N Hormone Therapy: N Postmenopausal: N Previous surgery date and type: N Hysterectomy: N Chemotherapy: N FARIDA Exposure: N Radiation: N Previous Abnormal Pap? Details: N Diagnostic or Screening Pap Test: Screening Performed by [facility], [address] [place] [id number] [email or web address], Blaze Weems MD - Lab. Director 01/03/2015 1:45 AM AIRFRAME TECHNICIAN 01/03/2015 3:49 PM AIRFRAME TECHNICIAN Luis Saenz MD LAB PATHOLOGY ORDERABLE S Final Result [facility] HISTORICAL RESULTS * Hepatitis panel, acute (10/31/2013 3:34 PM AIRFRAME TECHNICIAN) HepBsAg NONREACT NONREACTIVE 10/31/2013 5:55 PM AIRFRAME TECHNICIAN [facility] HISTORICAL RESULTS Comment: Siemens CentaurXP using AMEYA (chemiluminescent immunoassay) technology. NONREACTIVE: IgM antibodies to Hepatitis B Surface antigen not detected. REACTIVE: IgM antibodies to Hepatitis B Surface antigen detected. Reactive results will be confirmed by neutralization testing. HBsAb (immune status) NONREACT NONREACTIVE 10/31/2013 5:46 PM AIRFRAME TECHNICIAN [facility] HISTORICAL RESULTS Comment: Siemens CentaurXP using AMEYA (chemiluminescent immunoassay) technology. NONREACTIVE: IgM antibodies to Hepatitis B Surface antibody not detected. REACTIVE: IgM antibodies to Hepatitis B Surface antibody detected. Hep B core IgM NONREACT NONREACTIVE 3 6:40 PM AIRFRAME TECHNICIAN [facility] HISTORICAL RESULTS Comment: Siemens CentaurXP using AMEYA (chemiluminescent immunoassay) technology. NONREACTIVE: IgM antibodies to Hepatitis B Core antigen not detected. EQUIVOCAL: IgM antibodies to Hepatitis B Core antigen may or may not be present. Obtain a new specimen and retest. REACTIVE: IgM antibodies to Hepatitis B Core antigen detected. Hep A IgM NONREACT NONREACTIVE 10/31/2013 6:40 PM AIRFRAME TECHNICIAN [facility] HISTORICAL RESULTS Comment: Siemens CentaurXP using AMEYA (chemiluminescent immunoassay) technology. NONREACTIVE: IgM antibodies to Hepatitis A not detected. This does not exclude possibility of exposure to Hepatitis A or early acute infection. EQUIVOCAL:IgM antibodies to Hepatitis A may or may not be present. Suggest recollection and retest. REACTIVE: Antibodies to Hepatitis A detected. Hep C Ab NONREACT NONREACTIVE 10/31/2013 6:40 PM AIRFRAME TECHNICIAN [facility] HISTORICAL RESULTS Comment: Siemens CentaurXP using AMEYA [...] to Hepatitis C detected. 10/31/2013 3:34 PM AIRFRAME TECHNICIAN 10/31/2013 4:49 PM AIRFRAME TECHNICIAN Luis Saenz MD LAB MICROBIOLOGY - [facility] ORDERABLES Final Result [facility] HISTORICAL RESULTS from Last 3 Months or Most Recently Relevant to Health Maintenance Insurance [facility] Care Teams Supervisor Scenic Arts Relationship Specialty Start Date End Date Unknown, Notinfile PCP - General 01/03/19
--- OUTSIDE RECORDS SUMMARY | 2025-03-12 20:38 | XMS_ITS | Clinical Summary ---
Author Organization [facility] Address [address] [facility] [place] [address] Care Team Providers Care Tax Advisor Name Role Phone Valente Musa Boucher APRN-IT RISK ANALYST Primary Care Provider Source Comments [facility],non-owned Affiliates and Associated Physician Practices is amultiple site organization consisting of ambulatory clinics and hospital sitesin [place], [place], [place] and [place]. This disclosure is being madepursuant to the Care Everywhere program and may not contain all information available regarding this patient. Last updated 18.yetu [facility] Allergies No known active allergies Medications * Be aware that medications may not be up to date on this document. Alwaysverify current medications with the patient. acetaminophen CR (TYLENOL 8 HOUR) 650 MG tablet acetaminophen 325 mg tablet Active mometasone-formote rol (DULERA) 100-5 MCG/ACT inhaler Dulera 200 mcg-5 mcg/actuation HFA aerosol inhaler Active DULOXETINE HCL PO duloxetine 60 mg capsule,delayed release TAKE 1 CAPSULE BY MOUTH EVERY DAY IN THE EVENING Active lidocaine 2% - hydrocortisone 1% (HEMORROID RECTAL ROCKET) SUPP suppository hydrocortisone 2.5 % topical cream with perineal applicator 04/18/20 19 Active METFORMIN HCL PO Act pancho Omeprazole Magnesium (PRILOSEC OTC PO) omeprazole 20 mg capsule,delayed release 07/29/20 19 Active triamcinolone 0.1 % cream - LCD 10 % CREA 40 mg Active albuterol (PROVENTIL;VENTOLI N) (2.5 MG/3ML) 0.083% nebulizer solution albuterol sulfate 2.5 mg/3 mL (0.083 %) solution for nebulization Active ELIQUIS 5 MG tablet TK 1 T PO BID 05/29/20 Active baclofen (LIORESAL) 10 MG tablet baclofen 10 mg tablet Active benzonatate (TESSALON) 100 MG capsule TK 1 C PO BID 02/08/20 Active ertugliflozin (STEGLATRO) 15 MG tablet Steglatro 15 mg tablet Active ezetimibe (ZETIA) 10 MG tablet TK 1 T PO D WITH LIPTOR 05/18/20 Active famotidine (PEPCID) 40 MG tablet famotidine 40 mg tablet 10/14/20 Active gabapentin (NEURONTIN) 300 MG capsule gabapentin 300 mg capsule TAKE ONE CAPSULE BY MOUTH EVERY MORNING, 1 AT NOON, 2 BEDTIME X 7 DAYS; THEN INCREASE TO 2 AT NOON X 7 DAYS; THEN 2 THREE TIMES DAILY 07/07/20 Active BASAGLAR KWIKPEN (BASAGLAR) pen INJ 22 UNITS SC QD 07/22/20 Active losartan (COZAAR) 50 MG tablet losartan 50 mg tablet TAKE 1 TABLET BY MOUTH EVERY DAY IN THE MORNING( DISCONTINUE LISINOPRIL 20 MG) 07/07/20 Active metoprolol tartrate (LOPRESSOR) 25 MG tablet [...] of Binge Drinking Not on file 05/30 Comments Unknown Sex and Gender Information Value Date Recorded Sex Assigned at Not on file Legal Sex Female 3:24 PM CDT Gender Identity Not on file Sexual [...] Health Maintenance Due Date Last Done Comments COLOGUARD (AGES 45-75) - COLON [place] SCREENING 1972 [...] of 2) 2022 COVID-19 VACCINE (1 - 2023- season) 2024 DEPRESSION SCREENING 11/30/2024 INFLUENZA VACCINE [...] on patient's age to complete this topic Insurance [place] [address] Care Teams Tax Advisor Relationship Specialty Start Date End Date Musa Victor, ARABIC TRANSLATOR-IT RISK ANALYST [address] [place] [address] PCP - General 06/07/20
[2025-03-12 20:48] VITALS: BP 184/136; PULSE 110; RESP 16; TEMP 36.7; O2SAT 97
[2025-03-12 21:02] VITALS: O2SAT 96
[2025-03-12 21:34] LABS: Influenza A QL RT-PCR Negative (Negative); Influenza B QL RT-PCR Negative (Negative); RSV RNA, RT-PCR Negative (Negative); SARS-CoV-2 RNA PCR Negative (Negative)
[2025-03-12 23:29] VITALS: BP 156/85; PULSE 83; RESP 19; TEMP 37.2; O2SAT 96
--- NOTE | 2025-03-13 00:04 | ECG_ITS ---
Test Date: 2025-03-13 00:26:46 Measurements Intervals Alta Rate: 94 P: 12 MD: 156 QRS: -22 QRSD: 97 T: 17 QT: 351 QTc: 439 Interpretive Statements SINUS RHYTHM INFERIOR INFARCT, AGE INDETERMINATE ANTEROSEPTAL INFARCT, AGE INDETERMINATE BASELINE ARTIFACT- III, AVR, AVL, AVF, V6 ABNORMAL ECG Compared to ECG 09/30/2024 12:48:55 No significant changes Electronically Signed On 03-13-2025 06:35:07 CDT by Satya Mccrary D.O.
--- NOTE | 2025-03-13 00:05 | ED_ITS ---
HPI - URI/Sore Throat General Chief Complaint: Upper Respiratory Infection Stated Complaint: Cough-shortness of breath Time Seen by Provider: 03/12/25 23:57 Source: patient Mode of arrival: ambulatory Limitations: no limitations History of Present Illness HPI Narrative: This is a 54-year-old female that presents to the emergency department for cold symptoms. Ongoing over the last week. Reports cough, congestion, shortness of breath, chest pain, wheezing. She was seen here for this 5 days ago. Has not improved. Denies fevers. Related Data Home Medications ?Medication ?Instructions ?Recorded ?Confirmed ?Last Taken ?Type apixaban 5 mg tablet (Eliquis) 5 mg PO DAILY 06/16/20 09/30/24 09/29/24 21:00 History duloxetine 60 mg capsule,delayed 60 mg PO HS 06/16/20 09/30/24 09/29/24 21:00 History release insulin glargine 100 unit/mL (3 25 unit subcut HS 12/07/20 09/30/24 09/29/24 21:00 History mL) subcutaneous pen (Basaglar KwikPen U-100 Insulin) pregabalin 150 mg capsule 150 mg PO BID 12/07/20 09/30/24 09/29/24 21:00 History dapagliflozin propanediol 10 mg 10 mg PO DAILY 09/30/24 09/30/24 09/29/24 17:00 History tablet (Farxiga) rosuvastatin 40 mg tablet 40 mg PO QHS 09/30/24 09/30/24 09/29/24 21:00 History Allergies Allergy/AdvReac Type Severity Reaction Status Date / Time No Known Allergies Allergy Unknown Verified 03/12/25 20:36 Review of Systems 2 Review of Systems: CONSTITUTIONAL: Denies fever ENT: Reports rhinorrhea, congestion CARDIOVASCULAR: Reports chest pain RESPIRATORY: Reports cough and dyspnea. All systems reviewed & are unremarkable except as noted in HPI and below PMFSH Past Medical History Medical History Renal abscess Renal cyst Gastroparesis Neuropathy Adenomatous colon polyp Diabetes mellitus HTN (hypertension) DVT (deep venous thrombosis) approx 3-4 years ago HLD (hyperlipidemia) H. pylori infection COVID-19 Perirectal abscess Chronic anticoagulation Epigastric pain Perirectal ulcer Pneumonia due to 2019-nCoV Asthma Surgical History Surgical History H/O colonoscopy H/O esophagogastroduodenoscopy H/O section History of tonsillectomy Family History Family History Mother Diabetes mellitus Heart disease Acute myocardial infarction Sibling Diabetes mellitus Social History Social History Social History: Patient is and lives with her two children. 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 She is a full code. Smoking status: Never smoker Second hand tobacco smoke exposure: Yes Alcohol intake: never Substance use: never Substance use type: does not use Do You Feel Safe in your Home?: Yes Lack of Transportation: No Lack of Food: Never True Current Housing: I Have Housing Concerned About Future Housing: No Difficulty Paying Gas/Electric Bills: No Difficulty Paying for Meds: No Currently Unemployed: No Education: Decline to Answer Difficulty w/ Childcare or Family Care: No Gender identity (if verbalized by the patient): Female Sexual Orientation (if Verbalized by the Patient): Straight or Heterosexual Spiritual care concerns: No Exam 2 Narrative: GENERAL: Well-appearing, well-nourished, and in no acute distress. HEAD: Normocephalic, atraumatic. EYES: EOMI. ENT: Nares clear, no rhinorrhea or epistaxis. Mucous membranes moist. Oropharynx without tonsillar hypertrophy exudate or other lesions. Bilateral TMs pearly diehl non-bulging NECK: Supple. No adenopathy or masses. CHEST: No respiratory distress. Mild expiratory wheezing. Rales in the left lower lobe. No rhonchi HEART: Regular rate and rhythm. No murmur heard. Normal peripheral pulses. EXTREMITIES: Normal range of motion. No edema. SKIN: Warm, dry, no rash. NEURO: No focal deficits. Alert and oriented x3. PSYCH: Normal mood and affect Course Course Emergency Course: Patient updated on her workup and plan of care Vital Signs Vital signs: Vital Signs Temperature 98.0 F 03/12/25 20:48 Pulse Rate 110 H 03/12/25 20:48 Respiratory Rate 16 03/12/25 20:48 Blood Pressure 184/136 H 03/12/25 20:48 Pulse Oximetry 97 03/12/25 20:48 Oxygen Delivery Room Air 03/12/25 20:48 Temperature 98.9 F 03/12/25 23:29 Pulse Rate 83 03/12/25 23:29 Respiratory Rate 19 03/12/25 23:29 Blood Pressure 156/85 H 03/12/25 23:29 Pulse Oximetry 96 03/12/25 23:29 Oxygen Delivery Room Air 03/12/25 21:02 MDM - URI/Sore Throat MDM Narrative Medical decision making narrative: Patient presents the emergency department for cold symptoms present over the last week. She is afebrile and nontoxic appearing. Tachycardic and hypertensive upon arrival, patient hydrated with a L of IV fluids, given pain medication with improvement. CBC with leukocytosis to 11. Also shows hemoconcentration. Metabolic panel also with some evidence of dehydration. Patient given a L of IV fluids in the ER. Influenza, RSV and COVID screens are negative. Chest x-ray shows a left lower lobe pneumonia. Patient updated on workup agrees with plan of care. Will be started on oral antibiotics. She is to follow up with primary provider. She was given warnings to return the ER Differential Diagnosis Differential diagnosis: Likely upper respiratory infection, sinusitis, viral infection, bronchitis, influenza and other (Pneumonia, dehydration, electrolyte derangement) Lab Data Attestation: I reviewed the patient's lab results. 03/13/25 00:15 03/13/25 00:15 Labs: Lab Results 03/12/25 03/13/25 Range/Units 20:52 00:15 WBC 11.0 H (4.5-10.0) K/mm3 RBC 5.27 (4.2-5.4) M/mm3 Hgb 15.5 H (12.0-15.0) g/dL Hct 45.4 (37.0-47.0) % MCV 86.1 (80-100) fl MCH 29.4 (26-34) pg MCHC 34.1 (32-36) g/dl RDW 11.9 (11.5-14.5) % Plt Count 227 D (150-375) k/mm3 MPV 10.7 H (7.4-10.4) fl Immature Gran % (Auto) 0.5 (0-0.5) % Neut % (Auto) 76.3 H (45.5-73.1) % Lymph % (Auto) 15.4 L (18.3-44.2) % Tompkins % (Auto) 7.4 (2.6-8.5) % Eos % (Auto) 0.1 (0-4.4) % Baso % (Auto) 0.3 (0.2-1.2) % Lymph # (Auto) 1.70 (0.9-3.2) K/mm3 Tompkins # (Auto) 0.8 H (0.1-0.6) K/mm3 Eos # (Auto) 0.0 (0-0.3) K/mm3 Baso # (Auto) 0.0 (0.0-0.1) K/mm3 Abs Immat Gran (auto) 0.06 H (0.00-0.031) K/mm3 Absolute Neuts (auto) 8.4 H (1.3-6.7) K/mm3 Absolute Nucleated RBC 0.000 (0.0-0.012) K/mm3 Nucleated RBC % 0.0 (0.0-0.2) % Sodium 130 L (137-145) mmol/L Potassium 3.9 (3.4-5.0) mmol/L Chloride 93 L (98-107) mmol/L Carbon Dioxide 23 (22-30) mmol/L Anion Gap 14 H (4-12) mmol/L BUN 13 (7-17) mg/dL Creatinine 0.57 L (0.7-1.0) mg/dL Estim Creat Clear Calc 84 ml/min Estimated GFR > 60 (59 - ) Glucose 398 H (65-110) mg/dL Calcium 9.5 (8.4-10.2) mg/dL Total Bilirubin 0.6 (0.2-1.3) mg/dL AST 17 (14-36) U/L ALT 15 (6-35) U/L Alkaline Phosphatase 118 (38-126) U/L Troponin I < 0.012 (0.000-0.034) ng/mL Total Protein 8.0 (6.3-8.2) g/dL Albumin 4.0 (3.5-5.1) g/dL Influenza A (RT-PCR) Negative (Negative) Influenza B (RT-PCR) Negative (Negative) RSV (RT-PCR) Negative (Negative) SARS-CoV-2 RNA (RT-PCR) Negative (Negative) Imaging Data Radiologist's impression: ITS Impressions Chest X-Ray 03/12/25 22:16 IMPRESSION: Subsegmental left lower lobe atelectasis/consolidation. ECG Data EKG #1: ECG completion date: 03/13/25 EKG Interpretation: normal rate, sinus rhythm, no ST changes and normal QT Critical Care Time Critical Care Time Critical Care Time: No Discharge Plan Discharge Clinical Impression: Dehydration Pneumonia Qualifiers: Pneumonia type: due to unspecified organism Laterality: left Lung location: l ower lobe of lung Qualified Code(s): J18.9 - Pneumonia, unspecified organism Patient Disposition: Home Condition: Stable Instructions: Antibiotic Form, Dehydration (ED), Bacterial Pneumonia (ED) Additional Instructions: Return to the emergency department for worsening symptoms, or any other concerns Remain well-hydrated, get plenty of rest. Take Tylenol or Motrin [id number]-vfuwvtn for pain as needed. Flonase for nasal congestion. Zyrtec for runny nose. Take oral antibiotics as prescribed. Albuterol 2 puffs every 4-6 hours as needed for shortness of breath or wheezing Follow up with your primary care doctor Patient Language: [place] Citizen Prescriptions: New azithromycin 250 mg tablet See Rx Instructions .ROUTE .COMPLEX Qty: 6 0RF Rx Instructions: For 250 mg dose pack: take 500 mg today (day 1), then 250 mg for 4 days (days 2-5) amoxicillin 500 mg tablet 1,000 mg PO Q8H 5 Days Qty: 30 0RF No Action duloxetine 60 mg capsule,delayed release(DR/EC) 60 mg PO HS Eliquis 5 mg tablet 5 mg PO DAILY fluticasone propionate [24 Hour Allergy Relief] 50 mcg/actuation spray,suspension 2 spray intranasal DAILY 30 Days Qty: 16 0RF Rx Instructions: administer into each nostril methylprednisolone [Medrol (Jose)] 4 mg tablets,dose pack See Rx Instructions PO .COMPLEX Qty: 21 0RF Rx Instructions: orally per package directions cyclobenzaprine 10 mg tablet 10 mg PO Q8H PRN (Reason: muscle spasm) 7 Days Qty: 21 0RF insulin glargine [Basaglar KwikPen U-100 Insulin] 100 unit/mL (3 mL) insulin pen 25 unit SUBCUT HS pregabalin 150 mg capsule 150 mg PO BID rosuvastatin 40 mg tablet 40 mg PO QHS dapagliflozin propanediol [Farxiga] 10 mg tablet 10 mg PO DAILY ytzcouhuoe-arignbcpgbfru-dxoi 50-325-40 mg Tablet 1 tablet PO Q4H PRN (Reason: headache) Qty: 10 0RF lidocaine [Lidoderm] 5 % Adhesive Patch,Medicated 2 patch transdermal DAILY Qty: 30 0RF Rx Instructions: apply to lower back cyclobenzaprine 5 mg tablet 5 mg PO TID PRN (Reason: muscle spasm) Qty: 20 0RF benzonatate 100 mg capsule 100 mg PO BID PRN (Reason: cough) Qty: 20 0RF albuterol sulfate [Ventolin HFA] 90 mcg/actuation HFA aerosol inhaler 1 inh inhalation QID PRN (Reason: shortness of breath or wheezing) Qty: 6.7 0RF Cepacol Sore Throat-Cough 5-7.5 mg lozenge 1 josiah PO Q4H PRN (Reason: cough) Qty: 16 0RF albuterol sulfate 90 mcg/actuation HFA aerosol inhaler 4 puff INHALATION QID PRN (Reason: shortness of breath or wheezing) Qty: 8 0RF Follow-up/Referrals: Franklyn Greco DO [Primary Care Provider] -
--- OUTSIDE RECORDS SUMMARY | 2025-03-13 00:05 | XMS_ITS | Encounter Summary ---
Author Organization [facility] Care Team Providers Care Shake Loader Name Role Phone Unknown, Notinfile Primary Care Provider Unavail able Encounter Details Date Type Department Care Team (Latest Contact Info) Description 09/17/2015 Orders Only [facility] CLINCONV Provider, MD Natasha [address] [place] [id number] Social History Tobacco Use Types Packs/Day Years Used Date Smoking Tobacco: Never Assessed Comments Unknown Sex and Gender Information Value Date Recorded Sex Assigned at Not on file Legal Sex Female 8:03 AM COMPLIANCE ASSOCIATE Gender Identity Not on file Sexual Orientation [...] documented as of this encounter Care Teams Shake Loader Relationship Specialty Start Date End Date Unknown, Notinfile PCP - General 01/03/19 documented as of this encounter
--- OUTSIDE RECORDS SUMMARY | 2025-03-13 00:05 | XMS_ITS | CONTINUITY OF CARE DOCUMENT ---
Author Name navdeep sethi Address Unknown Organization [facility] Address [address] [place] [address] [address] [place] [address] Phone [phone] Care Team Providers Care Quilt Sewer Name Role Phone Lorna CARNEY, Nir Kirby Unavailable [phone] JODY SPAIN Unavailable TRELL ELENA MD Unavailable [phone] PROBLEMS Condition Status Date Provider Notes DVT [...] Rothman MD Cardiology examination active Yoli drummond MERCHANDISE PLANNING MANAGER ENCOUNTERS Date Type Provider Location Encounter Diag nosis - In-person encounter Office Visit Nir Rothman MD [facility] Cardiology examination - In-person encounter Office Visit Nir Rothman MD [facility] - In-person encounter Office Visit Nir Rothman MD [facility] GERD - In-person encounter Office Visit Nir Rothman MD [facility] - In-person encounter Office Visit Nir Rothman MD [facility] - In-person encounter Office Visit Omar Begum MD [facility] Family History Coronary Heart Disease female < 65:Family History of CVA or Stroke:Family History of Hyperlipidemia:Family History of Hypertension:Hypertension Leg painSnoringSLEEP APNEA;on rxChest pain-type to be determinedDiabetes Mellitus, Type II, uncontrolledFAMILY HISTORY OF HEART DISEASEExposure to SARS-associated coronavirus;neg iggScreeningHTN essential;neg angioPVD;ObesityNeuropath y - In-person encounter Office Visit Nir Rothman MD [facility] - In-person encounter Office Visit Nir Rothman MD [facility] - In-person encounter Office Visit Nir Rothman MD [facility] - In-person encounter Office Visit Nir Rothman MD [facility] - In-person encounter Office Visit Nir Rothman MD [facility] - In-person encounter Office Visit Nir Rothman MD [facility] SLEEP APNEA;on rx - In-person encounter Office Visit Raulito Acevedo MD [facility] - In-person encounter Office Visit Nir Rothman MD [facility] Diabetes, Type 2Hyperlipidemia VITAL SIGNS Date Observation Value Provider blood pressure, diastolic 84 mm[Hg] Han mikaela Wren blood pressure, systolic 122 mm[Hg] Charu peter Wren oxygen saturation, oximetry 100 % [facility] pulse rate 74 /min [facility] height E&M 61 [in_i] [facility] Body Mass Index (Ratio) 29.66 kg/m2 [...] dunlap pulse rate 77 /min Page Kia [facility] weight E&M 168 [lb_av] Page Perezangelrossi [facility] height E&M 61 [in_i] Page Adam [facility] Body Mass Index (Ratio) 31.55 kg/m2 Gracie [...] Tonsha Olivares temperature site temporal Diane Tank [facility] temperature E&M 97.1 [degF] Diane Tanks [...] [in_i] Tonsha Olivares temperature site temporal Diane [facility] temperature E&M 96.8 [degF] Diane [facility] Body Mass Index (Ratio) 31.55 kg/m2 Tyree Rothman MD blood pressure, diastolic 86 mm[Hg] [facility], systolic 109 mm[Hg] [facility] oxygen saturation, oximetry 98 % [facility] respiratory rate E&M 16 /min [facility] pulse rate 76 /min [facility] weight E&M 167 [lb_av] [facility] height E&M 61 [in_i] [facility] temperature site [facility] temperature E&M 97.3 [degF] Diane [facility] Body Mass Index (Ratio) 34.38 kg/m2 Tyree Rothman MD weight E&M 182 [lb_av] [facility] saturation, oximetry 98 % eGrson Potter blood pressure, diastolic 90 mm[Hg] Pablo Potter blood pressure, systolic 126 mm[Hg] Jenny Potter pulse rate 92 /min [facility]erson [facility] respiratory rate E&M 16 /min Gerson Potter height E&M 61 [in_i] [facility] Body Mass Index (Ratio) 35.33 kg/m2 [...] Page [place] respiratory rate E&M 16 /min [facility] weight E&M 203 [lb_av] Page Adam [...] [employer] 3.5-5.2 sodium, serum 140 mmol/L [employer] [phone]/09/ 12 urea nitrogen/creatinine ratio, serum 19 [employer] [...] (3 mL) insulin pen active Yoli Ventimiglia MERCHANDISE PLANNING MANAGER Farxiga 10 mg tablet active Yoli Ventimiglia MERCHANDISE PLANNING MANAGER rosuvastatin 40 mg tablet active Yoli Ventimiglia MERCHANDISE PLANNING MANAGER fluticasone propionate 50 mcg/actuation spray,suspension active Yoli Ventimiglia MERCHANDISE PLANNING MANAGER famotidine 20 mg tablet active Yoli Ventimiglia MERCHANDISE PLANNING MANAGER butalbital-acetamin ophen-caff 50-325-40 mg tablet active Yoli Ventimiglia MERCHANDISE PLANNING MANAGER Eliquis 5 mg tablet active TAKE 1 TABLE T BY MOUTH TWICE DAILY 03/25 Manisha Gregory VASCEPA 1 GM ORAL CAPSULE completed 2 capsules by mouth twice daily [place] Coupon Code: BIN# [id number], PCN# [id number], GRP# [id number], ID# [id number] 05/18 - 05/30 Linnea Keith RN Eliquis [...] history of marijuana use no Yoli Ventimiglia [facility] drug use no Yoli Ventimig guerita [facility] alcohol use no Yoli Ventimig guerita [facility] smoking status Never smoker [facility] Never smoker Nir lucas [...] Nir Rothman MD smoking status Never smoker [facility] social history E&M Patient has n ever smoked. Smoking History: P lorraine has never smoked. Nir Rothman MD social history reviewed E&M revi ewed - no changes required Nir Rothman MD smoking status Never smoker [facility] social history E&M Patient has n ever smoked. Smoking History: P lorraine has never smoked. Omar Begum MD social history reviewed E&M revi ewed - no changes required Omar Begum MD smoking status Never smoker [facility] smoking status Never smoker Nir lucas MD social history E&M Patient has n ever smoked. Smoking History: P lorraine has never smoked. Nir Rothman MD social history reviewed E&M revi ewed - no changes required Nir Rothman MD alcohol use no [facility] smoking status Never smoker [facility] social history reviewed E&M revi ewed - no changes required [facility] social history reviewed E&M revi ewed [...] MD FAMILY HISTORY Family Member Condition Mother ID female <65 Mother Family History of Hy pertension: Mother Family History of Hy perlipidemia: Mother Family History of Di abetes: Mother Family History of CV A or Stroke: Mother Family History Coron shy Heart Disease female < 65: Father Family History Unkno wn INSURANCE PROVIDERS Payer name Policy type / Coverage type Scott red libertarian [place] [employer] (2) Medicaid [id number] ADVANCE DIRECTIVES Name Date DISCUSSED - NO DECISION MADE TREATMENT PLAN Date Name Performer [id number],C, O n CPAP T he patient is using CPAP on a regular basis. The patient has been benefiting from therapy and should continue use. April 10, 2023 T he patient is using CPAP on a regular basis. The patient has been benefiting from therapy and should continue use. Nir Rothman MD [id number],C, C P noted had CT no PE has esophagitis and pericardial cyst. Recommend EGD and H.. pylori eval. Nir Rothman MD [id number],C, b oth legs have DVT started on eliquis 04/30/2020. Still has leg pain. Needs to see specialist for veins at [facility]. M ild leg edema. No Kinjal's. CONCLUSIONS: [...] 2020 S aw specialist in vascular at [facility]. Was given compression stockings for both legs. Advised her to schedule f/u. Remain on ELiquis. April 03, 2021 W ent to U was advised that there was no further treatment per her recollection. Recommended to remain on AC. S he should remain on compression stockings as well. April 10, 2023 s he went to [place] recently did not have a dvt study done there. will arrange for one Nir Rothman MD [id number],C, B P today: 130/80 P rior BP: 120/84 (08/10/2020) Labs Reviewed: C reat: 0.77 (08/11/2020) C hol: 246 (08/11/2020) HDL: 63 (08/11/2020) Her updated medication list for this problem includes: Losartan Potassium 50 Mg Oral Tablet (Losartan potassium) April 10, 2023 b p is high 159/123 will arrange for HCTZ 25 mg daily Nri Rothman MD Cardiology: H er updated medication list for this problem includes: Rosuvastatin 40 Mg Tablet (Rosuvastatin) [place] Marymimy [facility] Cardiology:The patie nt is using CPAP on a regular basis. The patient has been benefiting from therapy and should continue use. [place] Marymiglia [facility] Cardiology: b oth legs have DVT started on eliquis 04/30/2020. Still has leg pain. Needs to see specialist for veins at [facility]. M ild leg edema. No Kinjal's. CONCLUSIONS: [...] 2020 S aw specialist in vascular at [facility]. Was given compression stockings for both legs. Advised her to schedule f/u. Remain on ELiquis. April 03, 2021 W ent to U was advised that there was no further treatment per her recollection. Recommended to remain on AC. She should remain on compression stockings as well. April 10, 2023 s he went to [place] recently did not have a dvt study done there. will arrange for one May 06, 2023 1 . No evidence of a deep vein thrombosis of the lower extremities bilaterally. October 10, 2024 R melanie on Eliquis for AC Yoli Searsjonnyia MERCHANDISE PLANNING MANAGER Cardiology:BP today 122/84 Amand michael Ventimiglia MERCHANDISE PLANNING MANAGER Cardiology: m ild by rajni 2019 [...] RAJNI DONE DOUBT VASCULAR THOUGH Yoli Marymiglia [facility] Cardiology: O n CPAP T he patient [...] Needs to see specialist for veins at [facility]. M ild leg edema. No Kinjal's. CONCLUSIONS: [...] 2020 S aw specialist in vascular at [facility]. Was given compression stockings for both legs. Advised her to schedule f/u. Remain on ELiquis. April 03, 2021 W ent to [facility] was advised that there was no further treatment per her recollection. Recommended to remain on AC. She should remain on compression stockings as well. April 10, 2023 s he went to [place] recently did not have a dvt study [...] Needs to see specialist for veins at [facility]. M ild leg edema. No Kinjal's. CONCLUSIONS: [...] 2020 S aw specialist in vascular at [facility]. Was given compression stockings for both legs. [...] 10, 2020 S specialist in vascular at [facility]. Was given compression stockings for both legs. [...] A1C. O rders: 9 9215 HIGH Complex (CPT-45632) C OMPREHENSIVE METABOLIC PANEL, W/EGFR (58989) L IPID PANEL (7600) H EMOGLOBIN A1c (496) [facility] Cardiology:This dago ent?s angina is disabling and in my opinion is not readily amenable to surgical intervention by PTCA or cardiac bypass because the patient's coronary anatomy is not readily amenable to such procedures. Will try ECP as she is having recurrent CP. O rders: E KG (CPT-73133) 9 9215 HIGH Complex (CPT-21291) C OMPREHENSIVE METABOLIC PANEL, W/EGFR (84009) L IPID PANEL (7600) H EMOGLOBIN A1c (496) E CP Commercial (CPT-11800) E CP - Medicare (CPT-G0166) [facility] Cardiology:The patie nt is using CPAP on [...] tab. 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 This patient?s angina is disabling and in my opinion is not readily amenable to surgical intervention by PTCA or cardiac bypass because the patient's coronary anatomy is not readily amenable to such procedures. O rders: 9 9215 HIGH Complex (CPT-17346) L IPID PANEL (7600) C OMPREHENSIVE METABOLIC PANEL, W/EGFR (96643) E CP - Medicare (CPT-G0166) E CP Commercial (CPT-57499) Nir Rothman MD Cardiology: B P today: 138/85 P rior BP: 147/92 (05/06/2017) LHer updated medication list for this problem includes: Metoprolol Tartrate 50 Mg Oral Tablet (Metoprolol tartrate) ..... One tab. twice daily Lisinopril 10 Mg Oral Tablet (Lisinopril) ..... One tab. daily Orders: 9 9215 HIGH Complex (CPT-91216) L IPID PANEL (7600) C OMPREHENSIVE METABOLIC PANEL, W/EGFR (35507) E CP - Medicare (CPT-G0166) E CP Commercial (CPT-63294) [facility] Cardiology:Check panel Nir Rothman MD [...] completed EKG Nir Rothman MD completed SNOMED-CT: 993156430 429914 Current Medications Documented Nir Rothman MD completed EKG Nir Rothman MD completed SNOMED-CT: 596519171 569040 Current Medications Documented Nir Rothman MD completed EKG Nir Rothman MD completed SNOMED-CT: 269197653 141170 Current Medications Documented Nir Rothman MD completed Lipid Strip Nir Rothman MD completed EKG Nir Rothman MD completed SNOMED-CT: 086483813 873781 Current Medications Documented Nir Rothman MD completed EKG Nir Rothman MD completed
--- OUTSIDE RECORDS SUMMARY | 2025-03-13 00:05 | XMS_ITS | Referral Summary ---
Author Organization [facility] Address [address] [place] [id number] Care Team Providers Care Cutting Department Supervisor Name Role Phone Unknown, Notinfile Primary Care [...] on file Legal Sex Female 8:03 AM SIGN HANGER SUPERVISOR Gender Identity Not on file Sexual Orientation [...] Comments THINPREP PAP Routine 01/03/2015 1:45 AM SIGN HANGER SUPERVISOR HEPATITIS PANEL, ACUTE Routine 10/31/2013 3:34 PM SIGN HANGER SUPERVISOR from Last 3 Months or Most Recently Relevant to Health Maintenance Results * ThinPrep Pap (01/03/2015 1:45 AM SIGN HANGER SUPERVISOR) Thin Prep Pap Smear SEE BELOW () 01/13 8:49 AM SIGN HANGER SUPERVISOR [facility] HISTORICAL RESULTS Comment: Fittings Finisher ThinPrep Cytology Final Report ThinPrep Pap Specimen Source Cervix/Endocervix Specimen Adequacy Satisfactory for interpretation, endocervical cells (transformation zone) present. Interpretation Negative for intraepithelial lesion or malignancy. 01/13/15 Refrigerating Engineer: RIVKA Benites(ASCP) 01/13/15 Verified By: RIVKA Benites(ASCP) electronic signature [facility], Department of Pathology For questions regarding this case, call ext. [phone] CPT Code(s) 96018 Clinical History LMP: [id number] : N : N IUD: N Hormone Therapy: N Postmenopausal: N Previous surgery date and type: N Hysterectomy: N Chemotherapy: N FARIDA Exposure: N Radiation: N Previous Abnormal Pap? Details: N Diagnostic or Screening Pap Test: Screening Performed by [facility], [address] [place] [id number] [email or web address], Blaze Weems MD - Lab. Director 01/03/2015 1:45 AM SIGN HANGER SUPERVISOR 01/03/2015 3:49 PM SIGN HANGER SUPERVISOR us Luis Saenz MD LAB PATHOLOGY ORDERABLE S Final Result [facility] HISTORICAL RESULTS * Hepatitis panel, acute (10/31/2013 3:34 PM SIGN HANGER SUPERVISOR) HepBsAg NONREACT NONREACTIVE 10/31/2013 5:55 PM SIGN HANGER SUPERVISOR [facility] HISTORICAL RESULTS Comment: Siemens CentaurXP using AMEYA (chemiluminescent immunoassay) technology. NONREACTIVE: IgM antibodies to Hepatitis B Surface antigen not detected. REACTIVE: IgM antibodies to Hepatitis B Surface antigen detected. Reactive results will be confirmed by neutralization testing. HBsAb (immune status) NONREACT NONREACTIVE 10/31/2013 5:46 PM SIGN HANGER SUPERVISOR [facility] HISTORICAL RESULTS Comment: Siemens CentaurXP using AMEYA (chemiluminescent immunoassay) technology. NONREACTIVE: IgM antibodies to Hepatitis B Surface antibody not detected. REACTIVE: IgM antibodies to Hepatitis B Surface antibody detected. Hep B core IgM NONREACT NONREACTIVE 3 6:40 PM SIGN HANGER SUPERVISOR [facility] HISTORICAL RESULTS Comment: Siemens CentaurXP using AMEYA (chemiluminescent immunoassay) technology. NONREACTIVE: IgM antibodies to Hepatitis B Core antigen not detected. EQUIVOCAL: IgM antibodies to Hepatitis B Core antigen may or may not be present. Obtain a new specimen and retest. REACTIVE: IgM antibodies to Hepatitis B Core antigen detected. Hep A IgM NONREACT NONREACTIVE 10/31/2013 6:40 PM SIGN HANGER SUPERVISOR [facility] HISTORICAL RESULTS Comment: Siemens CentaurXP using AMEYA (chemiluminescent immunoassay) technology. NONREACTIVE: IgM antibodies to Hepatitis A not detected. This does not exclude possibility of exposure to Hepatitis A or early acute infection. EQUIVOCAL:IgM antibodies to Hepatitis A may or may not be present. Suggest recollection and retest. REACTIVE: Antibodies to Hepatitis A detected. Hep C Ab NONREACT NONREACTIVE 10/31/2013 6:40 PM SIGN HANGER SUPERVISOR [facility] HISTORICAL RESULTS Comment: Siemens CentaurXP using AMEYA [...] to Hepatitis C detected. 10/31/2013 3:34 PM SIGN HANGER SUPERVISOR 10/31/2013 4:49 PM SIGN HANGER SUPERVISOR Luis Saenz MD LAB MICROBIOLOGY - GENE RAL ORDERABLES Final Result [facility] HISTORICAL RESULTS from Last 3 Months or Most Recently Relevant to Health Maintenance Insurance [facility] Care Teams Cutting Department Supervisor Relationship Specialty Start Date End Date Unknown, Notinfile PCP - General 01/03/19
--- OUTSIDE RECORDS SUMMARY | 2025-03-13 00:05 | XMS_ITS | Clinical Summary ---
Author Organization [facility] Address [address] [facility] [address] [place] [address] Phone Care Team Providers Care Administrative Coordinator Name Role Phone Mike Victor Primary Care Provider [phone] Allergies No known active allergies Medications Bismuth [...] Recently Relevant to Health Maintenance Insurance MEDICAID [facility] PL[facility] Care Teams Administrative Coordinator Relationship Specialty Start Date End Date Mike Victor PA [address] [place] [address] PCP - General Physician Rolling Mill Plugger 03/25/19
--- OUTSIDE RECORDS SUMMARY | 2025-03-13 00:06 | XMS_ITS | Clinical Summary ---
Author Organization [facility] Address [address] [place] [id number] Care Team Providers Care Pocket Assembler Name Role Phone Unknown, Notinfile Primary Care [...] on file Legal Sex Female 8:03 AM CUTTING MACHINE OPERATOR HELPER Gender Identity Not on file Sexual Orientation [...] Comments THINPREP PAP Routine 01/03/2015 1:45 AM CUTTING MACHINE OPERATOR HELPER HEPATITIS PANEL, ACUTE Routine 10/31/2013 3:34 PM CUTTING MACHINE OPERATOR HELPER from Last 3 Months or Most Recently Relevant to Health Maintenance Results * ThinPrep Pap (01/03/2015 1:45 AM CUTTING MACHINE OPERATOR HELPER) Thin Prep Pap Smear SEE BELOW () 01/13 8:49 AM CUTTING MACHINE OPERATOR HELPER [facility] HISTORICAL RESULTS Comment: Aircraft Body Repairer ThinPrep Cytology Final Report ThinPrep Pap Specimen Source Cervix/Endocervix Specimen Adequacy Satisfactory for interpretation, endocervical cells (transformation zone) present. Interpretation Negative for intraepithelial lesion or malignancy. 01/13/15 Fish Grader: RIVKA Benites(ASCP) 01/13/15 Verified By: RIVKA Benites(ASCP) electronic signature [facility] Department of Pathology For questions regarding this case, call ext. [phone] CPT Code(s) 79503 Clinical History LMP: [id number] : N : N IUD: N Hormone Therapy: N Postmenopausal: N Previous surgery date and type: N Hysterectomy: N Chemotherapy: N FARIDA Exposure: N Radiation: N Previous Abnormal Pap? Details: N Diagnostic or Screening Pap Test: Screening Performed by [facility], [address] [place] [id number] [email or web address], Blaze Weems MD - Lab. Director 01/03/2015 1:45 AM CUTTING MACHINE OPERATOR HELPER 01/03/2015 3:49 PM CUTTING MACHINE OPERATOR HELPER Luis Saenz MD LAB PATHOLOGY ORDERABLE S Final Result [facility] HISTORICAL RESULTS * Hepatitis panel, acute (10/31/2013 3:34 PM CUTTING MACHINE OPERATOR HELPER) HepBsAg NONREACT NONREACTIVE 10/31/2013 5:55 PM CUTTING MACHINE OPERATOR HELPER [facility] HISTORICAL RESULTS Comment: Siemens CentaurXP using AMEYA (chemiluminescent immunoassay) technology. NONREACTIVE: IgM antibodies to Hepatitis B Surface antigen not detected. REACTIVE: IgM antibodies to Hepatitis B Surface antigen detected. Reactive results will be confirmed by neutralization testing. HBsAb (immune status) NONREACT NONREACTIVE 10/31/2013 5:46 PM CUTTING MACHINE OPERATOR HELPER [facility] HISTORICAL RESULTS Comment: Siemens CentaurXP using AMEYA (chemiluminescent immunoassay) technology. NONREACTIVE: IgM antibodies to Hepatitis B Surface antibody not detected. REACTIVE: IgM antibodies to Hepatitis B Surface antibody detected. Hep B core IgM NONREACT NONREACTIVE 3 6:40 PM CUTTING MACHINE OPERATOR HELPER [facility] HISTORICAL RESULTS Comment: Siemens CentaurXP using AMEYA (chemiluminescent immunoassay) technology. NONREACTIVE: IgM antibodies to Hepatitis B Core antigen not detected. EQUIVOCAL: IgM antibodies to Hepatitis B Core antigen may or may not be present. Obtain a new specimen and retest. REACTIVE: IgM antibodies to Hepatitis B Core antigen detected. Hep A IgM NONREACT NONREACTIVE 10/31/2013 6:40 PM CUTTING MACHINE OPERATOR HELPER [facility] HISTORICAL RESULTS Comment: Siemens CentaurXP using AMEYA (chemiluminescent immunoassay) technology. NONREACTIVE: IgM antibodies to Hepatitis A not detected. This does not exclude possibility of exposure to Hepatitis A or early acute infection. EQUIVOCAL:IgM antibodies to Hepatitis A may or may not be present. Suggest recollection and retest. REACTIVE: Antibodies to Hepatitis A detected. Hep C Ab NONREACT NONREACTIVE 10/31/2013 6:40 PM CUTTING MACHINE OPERATOR HELPER [facility] HISTORICAL RESULTS Comment: Siemens CentaurXP using AMEYA [...] to Hepatitis C detected. 10/31/2013 3:34 PM CUTTING MACHINE OPERATOR HELPER 10/31/2013 4:49 PM CUTTING MACHINE OPERATOR HELPER Luis Saenz MD LAB MICROBIOLOGY - [facility] ORDERABLES Final Result [facility] HISTORICAL RESULTS from Last 3 Months or Most Recently Relevant to Health Maintenance Insurance [facility] Care Teams Pocket Assembler Relationship Specialty Start Date End Date Unknown, Notinfile PCP - General 01/03/19
--- OUTSIDE RECORDS SUMMARY | 2025-03-13 00:07 | XMS_ITS | Clinical Summary ---
Author Organization [facility] [employer] Address [address] [place] [address] Care Team Providers Care Animal Laboratory Technician Name Role Phone Valente Musa Boucher APRN-ADMINISTRATIVE ACCOUNTANT Primary Care Provider Source Comments [facility] [employer],non-owned Affiliates and Associated Physician Practices is amultiple site organization consisting of ambulatory clinics and hospital sitesin [place], [place], [place] and [place]. This disclosure is being madepursuant to the Care Everywhere program and may not contain all information available regarding this patient. Last updated 18.Kasenna [employer] Allergies No known active allergies Medications * [...] patient's age to complete this topic [place] [address] Care Teams Animal Laboratory Technician Relationship Specialty Start Date End Date Musa Victor, WET COTTON FEEDER-ADMINISTRATIVE ACCOUNTANT [address] [place] [address] PCP - General 06/07/20
[2025-03-13] MEDS: KETOROLAC 30 MG/ML VIAL (*BKC) IM (00:21)
[2025-03-13] MEDS: IPRATROPIUM 0.5 MG/ALBUTEROL SULFATE 2.5 MG AMPUL.NEB 3 ML INHALATION (00:23)
[2025-03-13 00:37] LABS: Basophils Percent Auto 0.3 % (0.2-1.2); Eosinophils Percent Auto 0.1 % (0-4.4); Hematocrit 45.4 % (37.0-47.0); Hemoglobin 15.5 g/dL (12.0-15.0); Immature Granulocyte Absolute 0.06 K/mm3 (0.00-0.031); Immature Granulocyte Percent A 0.5 % (0-0.5); Lymphocytes Percent Auto 15.4 % (18.3-44.2); Mean Corpuscular HGB Conc 34.1 g/dl (32-36); Mean Corpuscular Hemoglobin 29.4 pg (26-34); Mean Corpuscular Volume 86.1 fl (80-100); Mean Platelet Volume 10.7 fl (7.4-10.4); Monocytes Absolute Auto 0.8 K/mm3 (0.1-0.6); Monocytes Percent Auto 7.4 % (2.6-8.5); Neutrophils Absolute Auto 8.4 K/mm3 (1.3-6.7); Neutrophils Percent Auto 76.3 % (45.5-73.1); Platelet Count Result 227 k/mm3 (150-375); Red Blood Count 5.27 M/mm3 (4.2-5.4); Red Cell Distribution Width 11.9 % (11.5-14.5)
[2025-03-13 00:56] LABS: Alanine Aminotransferase 15 U/L (6-35); Alkaline Phosphatase 118 U/L (38-126); Anion Gap 14 mmol/L (4-12); Aspartate Amino Transferase 17 U/L (14-36); Bilirubin,Total 0.6 mg/dL (0.2-1.3); Blood Urea Nitrogen 13 mg/dL (7-17); Calcium 9.5 mg/dL (8.4-10.2); Carbon Dioxide 23 mmol/L (22-30); Chloride 93 mmol/L (98-107); Estimated CRCL calculation 84 ml/min; Estimated Glomerular Filt Rate > 60; Glucose 398 mg/dL (65-110); Potassium 3.9 mmol/L (3.4-5.0); Sodium 130 mmol/L (137-145)
[2025-03-13 01:05] LABS: Troponin I < 0.012 ng/mL (0.000-0.034)
[2025-03-13] MEDS: SODIUM CHLORIDE 0.9% IV 1,000 ML 999 ML IV CONT (01:16)
== END 2025-03-13 02:12 | disposition home or self-care (01) ==
PROVIDERS: Emergency Medicine; Emergency Provider Physician Assistant; PCP Emergency Medicine
DX: J18.9 Pneumonia, unspecified organism (principal); E86.0 Dehydration; Z20.822 Contact with and (suspected) exposure to COVID-19; I10 Essential (primary) hypertension; E11.43 Type 2 diabetes mellitus with diabetic autonomic (poly)neuropathy; K31.84 Gastroparesis; E78.5 Hyperlipidemia, unspecified; J45.909 Unspecified asthma, uncomplicated; Z86.16 Personal history of COVID-19; Z86.718 Personal history of other venous thrombosis and embolism; Z86.0101 Personal history of adenomatous and serrated colon polyps; Z79.01 Long term (current) use of anticoagulants; Z79.4 Long term (current) use of insulin; R94.31 Abnormal electrocardiogram [ECG] [EKG]
CPT/HCPCS: 36415; 71046; 80053; 84484; 85025; 87637; 93005; 94640; 96360; 96372; 99284; J1885; J7030

== ENCOUNTER 2025-05-12 23:48 | Emergency (ER) | payer OTHER, SELFPAY ==
--- NOTE | ~2025-05-12 | CT_ITS ---
EXAMINATION: CT pelvis w con DATE: 05/13/2025 02:19 INDICATION: Labial abscess. History of diabetes. TECHNIQUE: Computed tomography (CT) of the abdomen and pelvis was performed without intravenous contr ast. The dose-length product was 234.05 mGy-cm. Automated exposure control and iterative reconstructi on technique were employed. COMPARISON: CT dated 09/30/2024. FINDINGS: There is inflammatory stranding of the right labia majora and perineum without evidence for associated abscess. Nonspecific thickening of the rectum. There is evidence of pelvic relaxation. No nobstructive bowel gas pattern. Normal appendix. No abnormal pelvic masses or fluid collections. 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 IMPRESSION: 1. Inflammatory stranding right labia majora and adjacent peritoneum, most likely infectious/inflamma tory. No associated abscess. 2: Nonspecific thickening of the rectum. Cannot exclude infectious/inflammatory process or malignancy . 3: Pelvic relaxation. Reviewed, dictated and finalized at location B. IMPRESSION: 1. Inflammatory stranding right labia majora and adjacent peritoneum, most like ly infectious/inflammatory. No associated abscess. 2: Nonspecific thickening of the rectum. Cannot exclude infectious/inflammatory process or malignancy. 3: Pelvic relaxation.
--- OUTSIDE RECORDS SUMMARY | 2025-05-12 23:50 | XMS_ITS | Clinical Summary ---
Author Organization [facility] Address [address] [facility] [address] [place] [address] Phone Care Team Providers Care Grails Web Application Developer Name Role Phone Mike Victor Primary Care Provider [phone] Allergies No known active allergies Medications Bismuth [...] 3 - 19+ 3-dose series) 1991 Cologuard 2017 Immunochemical Fecal Occult Blood 2017 Pneumococcal Immunization (5 0+ years) (1 of 1 - PCV) 2022 Zoster Immunization (1 of 2) 2022 Colonoscopy 04/14/2024 04/14/2019 Colorectal Cancer Screening 04/14/2024 SARS-COV-2 Immunization (3 - 2023- season) 2024 12/12/2021, 11/14/2021 Influenza Immunization (Seas on Ended) 2025 09/20/2019, 09/15/2017, 08/21/2016 Respiratory Syncytial Virus (RSV) Immunization (Adult) (1 - 1-dose 75+ series) 2047 Human Papillomavirus (HPV) Immunization Aged Out No longer eligible b ased on patient's age to complete this topic Meningococcal Immunization (ACWY) Aged Out No longer [...] Recently Relevant to Health Maintenance Insurance MEDICAID [employer] ATTN CLAIMS DEPT [place] [id number] Care Teams Grails Web Application Developer Relationship Specialty Start Date End Date Mike Victor PA [address] [place] [address] PCP - General Physician Power Generation Equipment Repairer 03/25/19
--- OUTSIDE RECORDS SUMMARY | 2025-05-12 23:50 | XMS_ITS | Encounter Summary ---
Author Organization [facility] Care Team Providers Care Delinquent Tax Collector Name Role Phone Unknown, Notinfile Primary Care Provider Unavail able Encounter Details Date Type Department Care Team (Latest Contact Info) Description 09/17/2015 Orders Only [facility]INCON[facility] Provider, MD Natasha [address] [place] [id number] Social History Tobacco Use Types Packs/Day Years Used Date Smoking Tobacco: Never Assessed Comments Unknown Sex and Gender Information Value Date Recorded Sex Assigned at Not on file Legal Sex Female 8:03 AM DATA PROCESSING MANAGER Gender Identity Not on file Sexual Orientation [...] documented as of this encounter Care Teams Delinquent Tax Collector Relationship Specialty Start Date End Date Unknown, Notinfile PCP - General 01/03/19 documented as of this encounter
--- OUTSIDE RECORDS SUMMARY | 2025-05-12 23:50 | XMS_ITS | Referral Summary ---
Author Organization [facility] Address [address] [place] [id number] Care Team Providers Care Electronics Technician Name Role Phone Unknown, Notinfile Primary Care [...] on file Legal Sex Female 8:03 AM SUPERVISOR PAINT Gender Identity Not on file Sexual Orientation [...] Comments THINPREP PAP Routine 01/03/2015 1:45 AM SUPERVISOR PAINT HEPATITIS PANEL, ACUTE Routine 10/31/2013 3:34 PM SUPERVISOR PAINT from Last 3 Months or Most Recently Relevant to Health Maintenance Results * ThinPrep Pap (01/03/2015 1:45 AM SUPERVISOR PAINT) Thin Prep Pap Smear SEE BELOW () 01/13 8:49 AM SUPERVISOR PAINT [facility] 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 Interpretation Negative for intraepithelial lesion or malignancy. 01/13/15 Program Clinician: RIVKA Benites(ASCP) 01/13/15 Verified By: RIVKA Benites(ASCP) electronic signature [facility], Department of Pathology For questions regarding this case, call ext. [phone] CPT Code(s) 05658 Clinical History LMP: [id number] : N : N IUD: N Hormone Therapy: N Postmenopausal: N Previous surgery date and type: N Hysterectomy: N Chemotherapy: N FARIDA Exposure: N Radiation: N Previous Abnormal Pap? Details: N Diagnostic or Screening Pap Test: Screening Performed by [facility], [address] [place] [id number] [email or web address], Blaze Weems MD - Lab. Director 01/03/2015 1:45 AM SUPERVISOR PAINT 01/03/2015 3:49 PM SUPERVISOR PAINT us Luis Saenz MD LAB PATHOLOGY ORDERABLE S Final Result [facility] HISTORICAL RESULTS * Hepatitis panel, acute (10/31/2013 3:34 PM SUPERVISOR PAINT) HepBsAg NONREACT NONREACTIVE 10/31/2013 5:55 PM SUPERVISOR PAINT [facility] HISTORICAL RESULTS Comment: Siemens CentaurXP using AMEYA (chemiluminescent immunoassay) technology. NONREACTIVE: IgM antibodies to Hepatitis B Surface antigen not detected. REACTIVE: IgM antibodies to Hepatitis B Surface antigen detected. Reactive results will be confirmed by neutralization testing. HBsAb (immune status) NONREACT NONREACTIVE 10/31/2013 5:46 PM SUPERVISOR PAINT [facility] HISTORICAL RESULTS Comment: Siemens CentaurXP using AMEYA (chemiluminescent immunoassay) technology. NONREACTIVE: IgM antibodies to Hepatitis B Surface antibody not detected. REACTIVE: IgM antibodies to Hepatitis B Surface antibody detected. Hep B core IgM NONREACT NONREACTIVE 3 6:40 PM SUPERVISOR PAINT [facility] HISTORICAL RESULTS Comment: Siemens CentaurXP using AMEYA (chemiluminescent immunoassay) technology. NONREACTIVE: IgM antibodies to Hepatitis B Core antigen not detected. EQUIVOCAL: IgM antibodies to Hepatitis B Core antigen may or may not be present. Obtain a new specimen and retest. REACTIVE: IgM antibodies to Hepatitis B Core antigen detected. Hep A IgM NONREACT NONREACTIVE 10/31/2013 6:40 PM SUPERVISOR PAINT [facility] HISTORICAL RESULTS Comment: Siemens CentaurXP using AMEYA (chemiluminescent immunoassay) technology. NONREACTIVE: IgM antibodies to Hepatitis A not detected. This does not exclude possibility of exposure to Hepatitis A or early acute infection. EQUIVOCAL:IgM antibodies to Hepatitis A may or may not be present. Suggest recollection and retest. REACTIVE: Antibodies to Hepatitis A detected. Hep C Ab NONREACT NONREACTIVE 10/31/2013 6:40 PM SUPERVISOR PAINT [facility] HISTORICAL RESULTS Comment: Siemens CentaurXP using AMEYA [...] to Hepatitis C detected. 10/31/2013 3:34 PM SUPERVISOR PAINT 10/31/2013 4:49 PM SUPERVISOR PAINT Luis Saenz MD LAB MICROBIOLOGY - GENE RAL ORDERABLES Final Result [facility] HISTORICAL RESULTS from Last 3 Months or Most Recently Relevant to Health Maintenance Insurance [facility] Care Teams Electronics Technician Relationship Specialty Start Date End Date Unknown, Notinfile PCP - General 01/03/19
--- OUTSIDE RECORDS SUMMARY | 2025-05-12 23:51 | XMS_ITS | Clinical Summary ---
Author Organization [facility] Address [address] [place] [address] Care Team Providers Care Dry Talc Racker Name Role Phone Valente Musa Boucher APRN-ARCGIS DEVELOPER Primary Care Provider Source Comments [facility],non-owned Affiliates and Associated Physician Practices is amultiple site organization consisting of ambulatory clinics and hospital sitesin [place] and [place]. This disclosure is being madepursuant to the Care Everywhere program and may not contain all information available regarding this patient. Last updated 18.[facility] Allergies No known active allergies Medications * [...] SCREENING 1972 LIPID TESTING 1972 MAMMOGRAM 1972 HIV SCREENING 1987 HEPATITIS C SCREENING [...] patient's age to complete this topic Insurance [facility] Care Teams Dry Talc Racker Relationship Specialty Start Date End Date Musa Victor, MUSIC COMPOSITION TEACHER-ARCGIS DEVELOPER [address] [place] [address] PCP - General 06/07/20
--- OUTSIDE RECORDS SUMMARY | 2025-05-12 23:51 | XMS_ITS | Data Portability ---
Author Organization [facility] Address [address] [place] [address] Care Team Providers Care Watch Crystal Cutter Name Role Phone JUANITO GRECO Primary Care Provider Assessment No assessment recorded. Plan of Treatment Reminders Order Date Submit Date Provider Last Modified By Organization Details Last Modified Time Details Appointments None recorded . Lab influenz a virus A + B + SARS-CoV -2 (COVID19 ) Ag panel, rapid IA, upper respirat ory specimen 2024 025 [email or web address] In-Office Order, Internal Use Only DO Not Attach Compendium DO Not Attach Compendium, Do Not Delete/merge, [id number] 15:38:45 HbA1c (hemoglo bin A1c), blood 2023 024 In-Office Order, Internal Use Only DO Not Attach Compendium DO Not Attach Compendium, Do Not Delete/merge, [id number] 4 17:07:40 HbA1c (hemoglo bin A1c), blood 2023 024 [email or web address] In-Office Order, Internal Use Only DO Not Attach Compendium DO Not Attach Compendium, Do Not Delete/merge, [id number] 4 17:09:26 lipid panel, serum 2023 024 [facility], [address] [facility], [address], [place], [address], 4 07:14:38 CMP, serum or plasma 2023 024 [facility], [address], [address], [place], [address], 4 07:14:39 HbA1c (hemoglo bin A1c), blood 2023 024 [id number] In-Office Order, Internal Use Only DO Not Attach Compendium DO Not Attach Compendium, Do Not Delete/merge, [id number] 4 15:53:39 TSH + free T4, serum 2023 024 [facility], [address] [facility] [address], [address], [place], [address], 4 08:33:20 Referral ophthalm ology, retina speciali st referral 2023 024 [facility], [address], [place], [address], 5 16:27:11 Procedures None recorded . Surgeries None recorded . Imaging XR, knee, 3 view 2023 024 [facility], [address], [place], [address], 5 17:25:30 Medication Orders codeine 10 mg-guaif enesin 100 mg/5 mL oral liquid 2024 025 [facility][id number], [address], [place], [place], [id number], 5 12:21:03 loratadi ne 10 mg tablet 2024 025 [facility] #77269, [address], [place], [place], [id number], 5 12:21:10 butalbit al-aceta minophen -caffein e 50 mg-325 mg-40 mg tablet [address] [facility]61599, [address], [place], [place], [id number], 5 15:38:43 amoxicil lou 500 mg capsule 2023 025 [facility] #[facility]2986, [address], [place], [place], [id number], 5 11:38:40 butalbit al-aceta minophen -caffein e 50 mg-325 mg-40 mg tablet 2023 024 [facility] #95481, [address], [place], [place], [id number], 4 17:07:57 Basaglar KwikPen U-100 Insulin 100 unit/mL (3 mL) subcutan eous 2023 024 [facility] #67092, [address], [place], [place], [id number], 4 17:07:47 Farxiga 10 mg tablet 2023 024 [facility] #31548, [address], [place], [place], [id number], 4 17:10:13 Basaglar KwikPen U-100 Insulin 100 unit/mL (3 mL) subcutan eous 2023 024 [facility] #71516, [address], [place], [place], [id number], 4 17:09:29 ibuprofe n 600 mg tablet 2023 024 [facility] #54821, [address], [place], [place], [id number], 4 17:04:50 Basagljusta Brewster U-100 Insulin 100 unit/mL (3 mL) subcutan eous 2023 [facility] #87645, [address], [place], [place], [id number], 4 15:53:29 alcohol swabs 2023 [facility] #21426, [address], [place], [place], [id number], 4 15:53:29 famotidi ne 20 mg tablet 2023 [facility] #25377, [address], [id number], 4 15:53:31 apixaban 5 mg tablet 2023 [facility] #57517, [address], [id number], 4 15:53:30 pregabal in 150 mg capsule 2023 [facility] #27018, [address], [place], [place], [id number], 4 15:53:32 Patient TargetsNo targets recorded. Patient Instructions Encounter Date Encounter Id Patient Instructions Last Modified By Organization Details Last Modified Time 07/14/2024 [id number] back care and preventing injuries: care instructions [email or web address] Not available 07/14/2024 15:53:24 gastroesophageal reflux disease (GERD): care instructions [email or web address] Not available 07/14/2024 15:53:23 high cholesterol : care instructions [email or web address] Not available 07/14/2024 15:53:23 hypothyroidism: care instructions Not available 07/14/2024 15:53:23 neuropathic pain : care instructions [email or web address] Not available 07/14/2024 15:53:23 08/25/2024 [id number] A healthy lifest yle: care instructions [email or web address] Not available 08/25/2024 18:15:58 learning about t ype 2 diabetes [email or web address] Not available 08/25/2024 17:09:20 type 2 diabetes: care instructions [email or web address] Not available 08/25/2024 17:09:20 10/06/2024 [id number] headache: care instructions [email or web address] Not available 10/06/2024 17:07:40 learning about t ype 2 diabetes [email or web address] Not available 10/06/2024 16:57:54 type 2 diabetes: care instructions [email or web address] Not available 10/06/2024 16:57:54 Reason for Referral Ophthalmology, Retina Specia list Referral for Type 2 diabetes mellitus Recent Dx nonproliferative changes with macular edema, bilat Referring Physician: Juanito Greco, Internal Medicine, Encounter Date: 07/14/2024 Results Created Date Observation Date Name Description Value Unit Range Abnormal Flag Note LastModifiedBy Organization Detail LastModifiedTime 07/14/2007/15/2024 LIPID PANEL cholesterol, total 350 mg/dL 100-19 9 above high normal Not Available [facility] ([facility]) [address] [facility], [place], [address], 07/15/2024 07:14:38 07/14/2007/15/2024 LIPID PANEL triglyceride s 416 mg/dL 0-149 above high normal Not Available [facility] ([facility]) [address] [facility], [place], [address], 07/15/2024 07:14:38 07/14/2007/15/2024 LIPID PANEL HDL cholesterol 64 mg/dL >39 Not Available [facility] ([facility]) [address] [facility], [place], [address], 07/15/2024 07:14:38 07/14/20 24 07/15/2024 LIPID PANEL VLDL cholesterol rakesh 86 mg/dL 5-40 above high normal Not Available [facility] ([facility]) [address] [place], [address], 07/15/2024 07:14:38 07/14/20 24 07/15/2024 LIPID PANEL LDL chol calc ([facility]) 200 mg/dL 0-99 above high normal Not Available [facility] ([facility]) [address] [place], [address], 07/15/2024 07:14:38 07/14/20 24 07/15/2024 LIPID PANEL LDL calc comment: COMMEN T Consi whitney evalu ating for Famil ial Hyper mallorie stero lemia (FH), if clini kamilah indic ated. Not Available [facility] ([facility]) [address] [place], [address], 07/15/2024 07:14:38 07/14/20 24 07/15/2024 COMP. METAB OLIC PANEL (14) glucose 437 mg/dL 70-99 above high normal Not Available [facility] ([facility]) [address] [place], [address], 07/15/2024 07:14:39 07/14/20 24 07/15/2024 COMP. METAB OLIC PANEL (14) BUN 18 mg/dL 6-24 Not Available [facility] ([facility]) [address] [place], [address], 07/15/2024 07:14:39 07/14/20 24 07/15/2024 COMP. METAB OLIC PANEL (14) creatinine 0.78 mg/dL 0.57-1 .00 Not Available [facility] ([facility]) [address] [place], [address], 07/15/2024 07:14:39 07/14/20 24 07/15/2024 COMP. METAB OLIC PANEL (14) eGFR 91 mL/mi n/1.7 3 >59 Not Available [facility] ([facility]) [address] [facility], [place], [address], 07/15/2024 07:14:39 07/14/20 24 07/15/2024 COMP. METAB OLIC PANEL (14) BUN/creatini ne ratio 23 9-23 Not Available [facility] ([facility]) [address] [facility], [place], [address], 07/15/2024 07:14:39 07/14/20 24 07/15/2024 COMP. METAB OLIC PANEL (14) sodium 134 mmol/ L 134-14 4 Not Available [facility] ([facility]) [address] [facility], [place], [address], 07/15/2024 07:14:39 07/14/20 24 07/15/2024 COMP. METAB OLIC PANEL (14) potassium 4.5 mmol/ L 3.5-5. 2 Not Available [facility] ([facility]) [address] [facility], [place], [address], 07/15/2024 07:14:39 07/14/20 24 07/15/2024 COMP. METAB OLIC PANEL (14) chloride 97 mmol/ L 96-106 Not Available [facility] ([facility]) [address] [facility] [place], [address], 07/15/2024 07:14:39 07/14/20 24 07/15/2024 COMP. METAB OLIC PANEL (14) carbon dioxide, total 21 mmol/ L 20-29 Not Available [facility] ([facility]) [address] [facility] [place], [address], 07/15/2024 07:14:39 07/14/20 24 07/15/2024 COMP. METAB OLIC PANEL (14) calcium 9.8 mg/dL 8.7-10 .2 Not Available [facility] ([facility]) [address] [place], [address], 07/15/2024 07:14:39 07/14/20 24 07/15/2024 COMP. METAB OLIC PANEL (14) protein, total 7.2 g/dL 6.0-8. 5 Not Available [facility] ([facility]) [address], [place], [address], 07/15/2024 07:14:39 07/14/20 24 07/15/2024 COMP. METAB OLIC PANEL (14) albumin 4.2 g/dL 3.8-4. 9 Not Available [facility] ([facility]) [address], [place], [address], 07/15/2024 07:14:39 07/14/20 24 07/15/2024 COMP. METAB OLIC PANEL (14) globulin, total 3.0 g/dL 1.5-4. 5 Not Available [facility] ([facility]) [address], [place], [address], 07/15/2024 07:14:39 07/14/20 24 07/15/2024 COMP. METAB OLIC PANEL (14) bilirubin, total <0.2 mg/dL 0.0-1. 2 Not Available [facility] ([facility]) [address], [place], [address], 07/15/2024 07:14:39 07/14/20 24 07/15/2024 COMP. METAB OLIC PANEL (14) alkaline phosphatase 85 IU/L 44-121 Not Available [facility] ([facility]) [address], [place], [address], 07/15/2024 07:14:39 07/14/20 24 07/15/2024 COMP. METAB OLIC PANEL (14) AST (SGOT) 13 IU/L 0-40 Not Available [facility] ([facility]) [address] [facility], [place], [address], 07/15/2024 07:14:39 07/14/20 24 07/15/2024 COMP. METAB OLIC PANEL (14) ALT (SGPT) 14 IU/L 0-32 Not Available [facility] ([facility]) [address] [facility], [place], [address], 07/15/2024 07:14:39 07/14/20 24 07/15/2024 TSH+F REE T4 TSH 2.400 uIU/m L 0.450- 4.500 Not Available [facility] ([facility]) [address] [facility], [place], [address], 07/15/2024 08:33:20 07/14/20 24 07/15/2024 TSH+F REE T4 T4,free(dire ct) 1.20 NG/dL 0.82-1 .77 Not Available [facility] ([facility]) [address] [facility], [place], [address], 07/15/2024 08:33:20 07/14/20 24 07/14/2024 HbA1c (hemo globi n A1c), blood HbA1c 13 Not Available In-Office Order Internal Use Only DO Not Attach Compendium DO Not Attach Compendium, Do Not Delete/merge, [id number] 07/14/2024 15:38:35 08/25/20 24 08/25/2024 HbA1c (hemo globi n A1c), blood HbA1c 12.6 Not Available In-Office Order Internal Use Only DO Not Attach Compendium DO Not Attach Compendium, Do Not Delete/merge, [id number] 08/25/2024 16:57:29 10/06/20 24 10/06/2024 HbA1c (hemo globi n A1c), blood HbA1c 11.7 Not Available In-Office Order Internal Use Only DO Not Attach Compendium DO Not Attach Compendium, Do Not Delete/merge, [id number] 10/06/2024 17:03:16 03/02/20 25 03/02/2025 influ peace virus A + B + SARS- CoV-2 (COVI D19) Ag panel , rapid IA, upper respi rator y speci men Flu A negati ve Not Available In-Office Order Internal Use Only DO Not Attach Compendium DO Not Attach Compendium, Do Not Delete/merge, [id number] 03/02/2025 15:32:05 03/02/20 25 03/02/2025 influ peace virus A + B + SARS- CoV-2 (COVI D19) Ag panel , rapid IA, upper respi rator y speci men Flu B negati ve Not Available In-Office Order Internal Use Only DO Not Attach Compendium DO Not Attach Compendium, Do Not Delete/merge, [id number] 03/02/2025 15:32:05 03/02/20 25 03/02/2025 influ peace virus A + B + SARS- CoV-2 (COVI D19) Ag panel , rapid IA, upper respi rator y speci men Rapid SARS CoV 2 Ag, QL IA, respiratory specimen negati ve Not Available In-Office Order Internal Use Only DO Not Attach Compendium DO Not Attach Compendium, Do Not Delete/merge, [id number] 03/02/2025 15:32:05 09/30/20 24 09/30/2024 XR, chest , 2 view No observ ation record ed. [address], [address], 09/30/2024 17:56:07 09/30/20 24 09/30/2024 CT, angio gram, chest + abdom en + pelvi s, w/ contr ast No observ ation record ed. [address], [address], 10/04/2024 16:22:02 09/30/20 24 09/30/2024 exerc ise stres s test No observ ation record ed. [address], [address], 10/04/2024 16:24:37 09/30/20 24 09/30/2024 US, doppl er echoc ardio gram, w/ color flow No observ ation record ed. [address] [place], [address], 10/04/2024 16:21:12 Result Notes None recorded. Problems Name Problem SNOMED Code Status Onset Date Resolution Date Notes Provider Name and Address Organization Details Recorded Time Pain of right shoulder joint 51566406252 736139 Active 2016 Not Available [facility] 1 15:15:39 Sleep apnea 21282947 Active 2017 Not Available [facility] 15:15:39 Pain of right hip joint 34573573775 9102 Active 2017 Not Available [facility] 15:15:39 Steatotic liver disease 197947177 Active [address] 2018 Not Available [facility] 15:15:39 Type 2 diabetes mellitus 72432781 Active 2017 [facility] 15:15:39 Chronic idiopathi c constipat ion 87538049 Active 2017 Not Available [facility] 1 15:15:39 Acute sinusitis 73860181 Active 2017 Not Available [facility] 15:15:39 Muscle spasm of thoracic back 30860830621 9106 Active 2017 Not Available [facility] 15:15:39 Pain in lower limb 58019768 Active 2018 Not Available [facility] 15:15:39 Rectal pain 59425239 Active 2018 Not Available [facility] 15:15:39 Vaginitis 85567262 Active 2018 Not Available [facility] 15:15:[address] pylori gastroint estinal tract infection 372260461 Active 2018 Not Available [facility] 15:15:39 Disorder of scalp 525363774 Active 2018 Not Available [facility] 15:15:39 Hearing loss in left ear 95012056695 62961 Active 2018 Not Available [facility] 15:15:39 Pain of bilateral thighs 31184945102 273508 Active 2018 Not Available [facility] 15:15:39 Numbness and tingling sensation of skin 53276824312 2 Active 2018 Not Available [facility] 15:15:39 Impaired gastric emptying 149822321 Active 2018 Not Available [facility] 15:15:39 Acute bronchiti s 57723343 Active 2018 Not Available [facility] 15:15:39 Allergic rhinitis 76657367 Active 2018 Not Available [facility] 15:15:39 Neuropath y 868646402 Active 2018 Not Available [facility] 15:15:39 Bilateral acute deep vein thrombosi s of femoral veins 99451487566 9104 Active 2019 see ultrasoun d/ Duplex 04/30/2020 Not Available [facility] 15:15:38 Periphera l venous insuffici ency 29307893 Active 2019 see ultrasoun d 04/30/2020 . No DVT on 07/21/21 venous doppler Mike Victor [place]-C Attn: [place], [address] , [facility] 09:29:31 Deep venous thrombosi s of lower extremity 045225164 Active 2019 Not Available [facility] 15:15:39 Cramp in lower limb 915127102 Active 2019 Not Available [facility] 15:15:39 Pilonidal cyst 20556128 Active 2020 Not Available [facility] 15:15:39 SARS-CoV- 2 Active 2020 Not Available [facility] 15:15:39 Disorient ated 92759148 Active 2020 Not Available [facility] 15:15:39 Esophagit is 16322599 Active 2020 Not Available [facility] 15:15:39 Dysuria 30629112 Active 2020 Mike Victor PA-C Attn: Accounting ,[address] [facility], [place], [address] , [place] [facility] 1 16:29:52 CT of abdomen abnormal 36882028147 983216 Active 2020 Mike Victor PA-C Attn: Accounting ,[address] [facility], [place], [address] , [place] [facility] 1 16:36:12 Inguinal pain 732497877 Active 2020 Mike Victor PA-C Attn: Accounting ,[address] [facility], [place], [address] , [place] [facility] 1 17:25:56 Fracture of multiple ribs 9903444 Active 2021 Mike Victor PA-C Attn: Accounting ,[address] [facility], [place], [address] , [place] [facility] 2 10:05:19 Urine screening abnormal 134844676 Active 2021 Mike Victor PA-C Attn: Accounting ,[address] [facility], [place], [address] , [place] [facility] 2 11:42:39 Administr ation of pneumococ rakesh vaccine Active 2021 Mike Victor PA-C Attn: Accounting ,[address] [facility], [place], [address] , [place] [facility] 2 15:14:01 Administr ation of tetanus vaccine Active 2021 Mike Victor PA-C Attn: Accounting ,[address] [facility], [place], [address] , [place] [facility] 2 15:14:38 Lower back injury 955040282 Active 2021 Mike Victor PA-C Attn: Accounting ,[address] [facility], [place], [address] , [place] [facility] 2 12:57:28 Spondylos is 2839032 Active [address] cervical spine 08/25/2022 . also lumbar spondylos is same date Mike Victor PA-C Attn: Accounting ,[address] [facility], [place], [address] , [place] [facility] 2 17:28:47 Sinusitis 00897569 Active 2021 Juanito Greco MD Attn: Accounting ,[address] [facility], [place], [address] , [place] [facility] 2 10:36:35 Injury of musculosk eletal system 534486337 Active 2021 Juanito Greco MD Attn: Accounting ,[address] [facility], [place], [address] , [place] [facility] 2 10:37:33 Diabetes mellitus 37123916 Active Not Available [facility] 15:15:39 Hyperlipi demia 89363498 Active Not Available [facility] 15:15:39 Hypertens pancho disorder 39701696 Active Not Available [facility] 15:15:39 Nausea 552859181 Active Not Available [facility] 15:15:39 Gastroeso phageal reflux disease 042049760 Active Not Available [facility] 15:15:39 Obesity 841598001 Active Not Available [facility] 15:15:38 Hypothyro idism 99496063 Active Not Available [facility] 15:15:39 Headache 47820418 Active Not Available [facility] 15:15:39 Pain of left knee region 25149136877 4109 Active 2023 Juanito Greco MD Attn: Accounting ,[address] [place], [address] , [place] [facility] 4 16:58:06 Pain of ear 443430685 Active 2023 Juanito Greco MD Attn: Accounting ,[address] [facility], [place], [address] , [place] [facility] 4 16:53:38 Viral syndrome 504264068 Active 2024 Juanito Greco MD Attn: Accounting ,[address] [facility], [place], [address] , [place] [facility] 5 15:31:15 Persisten t cough 397340636 Active 2024 Juanito Greco MD Attn: Accounting ,[address] [facility], [place], [address] , [place] [facility] 5 12:12:44 Pleuritic pain 7000683 Active 2024 Juanito Greco MD Attn: Accounting ,[address] [facility], [place], [address] , [place] [facility] 5 12:13:03 Pain in right lower limb 189484371 Active 2024 Juanito Greco MD Attn: Accounting ,[address] [facility], [place], [address] , [place] [facility] 5 12:15:14 Bronchiti s 51023881 Active Not Available [facility] 15:15:39 Asthma 432736994 Active Not Available [facility] 15:15:39 Gastritis 5273587 Active Not Available [facility] 15:15:39 Left lower quadrant pain 283226281 Active Not Available [facility] 15:15:39 Anxiety 20903884 Active Not Available [facility] 15:15:39 Acute pharyngit is 501029507 Active Not Available [facility] 15:15:38 Vaginitis and vulvovagi nitis Active Not Available [facility] 15:15:39 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 Active Not Available [facility] 15:15:39 Low back pain 933419387 Active Not Available [facility] 15:15:39 Painful urging to urinate 23067703 Active Not Available [facility] 15:15:39 Dental abscess 645189788 Active Not Available [facility] 15:15:38 Hand eczema 389682483 Active Not Available [facility] 15:15:39 Inflammat ion of joint of shoulder region 792344786 Active 2016 Not Available [facility] 15:15:39 Sciatica 22632472 Active 2016 Not Available [facility] 15:15:39 Administr ation of influenza vaccine Active 2016 Not Available [facility] 15:15:39 Problem Notes None recorded. Procedures Surgical History Date Name Laterality Status Provider Name and Address Organization Details Recorded Time Caesarean Section completed Alayna Leger [place] [facility] 02/09/2015 14:44:14 Imaging Results None recorded. Procedure Notes None recorded. Medical Equipment None [...] 1 CAPSULE BY MOUTH EVERY 8 HOURS 03/30 completed Not Available Not Available Not Available cefazolin 1 gram solution for injection [...] silver sulfadiaz ine 1 % topical cream 12/13 /2022 completed Not Available Not Available Not Available [...] Not Available azithromy flor 250 mg tablet FOLLOW PACKAGE [employer] NS 03/30 completed Not Available Not Available Not Available [...] Available amoxicill in 500 mg tablet TAKE 2 TABLETS BY MOUTH EVERY 8 HOURS FOR 5 DAYS 03/30 completed Not Available Not Available Not Available [...] BY MOUTH TWICE DAILY NEEDED FOR COUGH 03/30 completed Not Available Not Available Not Available [...] completed Not Available Not Available Not Available codeine 10 mg-guaife nesin 100 mg/5 mL oral liquid TAKE 10 ML BY MOUTH THREE TIMES DAILY active Not Available Not Available No t Available [facility] Bismuth 262 mg tablet Take 1 tablet [...] a dose pack FOLLOW PACKAGE [employer] NS 03/30 completed Not Available Not Available Not Available albuterol sulfate HFA 90 mcg/actua tion [...] t Available loratadin e 10 mg tablet TAKE 1 TABLET BY MOUTH EVERY DAY active Not Available Not Available No t Available naproxen 500 mg tablet TAKE 1 [...] Not Available Not Available No t Available [facility] ODT 75 mg disintegr ating tablet 03/03 completed Not Available Not Available Not Available OneTouch Verio Reflect Meter FOLLOW PACKAGE [employer] NS active Not Available Not Available No t Available Vitals Date Recorded Body height Provider Name an d Address Organization Details Last Updated DateTime 03/02/2025 152.4 cm Salomón Victor [place] [facility] 03/02/2025 14:57:40 Date Recorded Body height Body mass index (BMI) Body weight Heart rate Oxygen saturation Oxygen saturation in Arterial blood by Pulse oximetry Systolic blood pressure Diastolic blood pressure Provider Name and Address Organization Details Last Updated DateTime 152.4 cm 29.5 kg/m2 14523.7 4 g 72 /min 100 % 100 % 126 mm[Hg] 83 mm[Hg] Salomón Victor MA [facility] 5 11:46:47 Date Recorded Body height Body mass index (BMI) Body weight Oxygen saturation Oxygen saturation in Arterial blood by Pulse oximetry Heart rate Systolic blood pressure Diastolic blood pressure Provider Name and Address Organization Details Last Updated DateTime 4 152.4 cm 30.3 kg/m2 22214.8 2 g 98 % 98 % 80 /min 132 mm[Hg] 86 mm[Hg] Chantell Hall MA [facility] 4 15:13:51 Date Recorded Body height Heart rate Oxygen saturation Oxygen saturation in Arterial blood by Pulse oximetry Body mass index (BMI) Body weight Systolic blood pressure Diastolic blood pressure Provider Name and Address Organization Details Last Updated DateTime 4 152.4 cm 83 /min 95 % 95 % 31.3 kg/m2 52624.2 1 g 149 mm[Hg] 93 mm[Hg] Salomón Victor MA [facility] 4 16:30:33 Date Recorded Body height Body mass index (BMI) Body weight Heart rate Oxygen saturation Oxygen saturation in Arterial blood by Pulse oximetry Systolic blood pressure Diastolic blood pressure Provider Name and Address Organization Details Last Updated DateTime 4 152.4 cm 32 kg/m2 91924.1 5 g 74 /min 98 % 98 % 124 mm[Hg] 76 mm[Hg] Salomón Victor MA [facility] 4 16:01:43 Social History Question Answer Notes LastModified by Organizat ion Details LastModified Time Tobacco Smoking Status Never Smoker Alayna Leger MA [facility], [facility] 02/09/2015 14:47:36 Do You Have An Advance Directive? No Information not available 02/09/2015 Are You Blind Or Do You Have Difficulty Seeing? No Information not available 02/09/2015 What Is Your Level Of Caffeine Consumption? Heavy Information not available 02/09/2015 How Much Tobacco Do You Chew? None Information not available 02/09/2015 Are You Deaf Or Do You Have Serious Difficulty Hearing? No Information not available 02/09/2015 What Type Of Diet Are You Following? REGULAR Information not available 02/09/2015 Education 9 Information no t available 02/09/2015 Are There Any Guns Present In Your Home? No Information not available 02/09/2015 Hard Of Hearing Or Deaf In One Or Both Ears? No Information not available 02/09/2015 Legally Blind In One Or Both Eyes? No Information no t available 02/09/2015 Marital Status Informatio n not available 02/09/2015 What Was The Date Of Your Most Recent Tobacco Screening? 03/30/2025 Information not available 03/30/2025 Performs Monthly Self-breast Exam? Yes Information no [...] Low Information not available 02/09/2015 Do You Use Sunscreen Routinely? No Information not available 02/09/2015 Has Tobacco Cessation Counseling Been Provided? Yes Information not available 09/13/2021 On What Date Was Tobacco Cessation Counseling Provided? 03/30/2025 Information not available 03/30/2025 How Many Years Have You Smoked Tobacco? 0 [email or web address] Information not available 07/22/2018 Do You Have Difficulty Walking Or Climbing Stairs? No Information not available 02/09/2015 Sex: Female Functional Status Question Answer Note LastModified by Organizat ion Details LastModified Time Do you use any illicit or recreational drugs? No Information not available 03/04/2021 Do you or have you ever used any other forms of tobacco or nicotine? No [email or web address] Information not available 03/03/2023 What is your level of alcohol consumption? None Information not available 02/09/2015 Are you currently employed? Yes Information not available 03/04/2021 Do you have difficulty doing errands alone? No Information not available 02/09/2015 Are you able to care for yourself? 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 No Information not available 02/09/2015 What is your exercise level? None Information not available 02/09/2015 Mental Status Question Answer Note LastModified by Organizat ion Details LastModified Time Do you feel stressed (tense, restless, nervous, or anxious, or unable to sleep at night)? [id number] Information not available 03/04/2021 Do you have difficulty concentrating, remembering or [...] History Condition Response High Blood Pressure Y Diabetes Y High Cholesterol Y Headaches Y Gynecological HistoryNo gynecological history recorded. Obstetrics History GPAL:G 0 P 0 0 0 0 Immunizations Vaccine Type Date Status Note Provider Nam e and Address Organization Details Recorded Time Influenza, split virus, quadrivalent, preservative 0 completed Not Available [facility] 07/03/2021 15:15:40 COVID-19, mRNA, LNP-S, PF, 100 mcg/0.5mL dose or 50 mcg/0.25mL dose 1 completed Debbie Del Castillo MA null, [place] - [facility] 05/22/2022 14:56:23 COVID-19, mRNA, LNP-S, PF, 100 mcg/0.5mL dose or 50 mcg/0.25mL dose 2 completed Debbie Del Castillo MA null, [place] - [facility] 05/22/2022 14:56:34 Influenza, split virus, quadrivalent, preservative 6 completed Not Available [facility] 12/17/2019 02:47:51 Influenza, split virus, quadrivalent, preservative 7 completed Not Available [facility] 12/17/2019 02:34:24 Influenza, split virus, quadrivalent, PF 8 completed Not Available [facility] 12/17/2019 02:39:54 Influenza, split virus, quadrivalent, preservative 9 completed Not Available [facility] 12/17/2019 02:38:15 Influenza, split virus, quadrivalent, preservative [...] SNOMED-CT Code Diagnosis ICD10 Code Diagnosis Note [id number] MD Kayla Fuentes (Adult Med) [address] [place] [address] [phone] 0 02/09/2015 14:17:40 02/09/2015 15:23:02 Diabetes mellitus 16243808 Hyperlipidemia 70838091 Hypertensive disorder 31313306 Nausea 387358999 Gastroesop hageal reflux disease 883850860 Obesity 380836495 Hypothyroidism 33957930 Headache 47987734 [id number] АННА Soria (Adult Med) [address] [place] [address] [phone] 0 04/16/2015 15:29:59 04/16/2015 17:37:49 Hypertensive disorder 76279132 Nausea 557290831 Bronchitis 59033690 [id number] АННА Soria (Adult Med) [address] [place] [address] [phone] 0 11/09/2015 15:12:01 11/09/2015 15:30:54 Asthma 264921383 J45.909 Gastritis 0684642 K29.70 [id number] АННА Soria (Adult Med) [address] [place] [address] [phone] 0 02/25/2016 12:01:15 02/25/2016 12:54:52 Asthma 935638023 J45.909 Diabetes mellitus 889661 09 E11.9 Gastroesop hageal reflux disease 659940424 K21.9 Headache 24484228 R51 Hyperlipidemia 06782071 E78.5 Hypertensive disorder 38 961281 I10 Hypothyroidism 74218290 E03.9 Obesity 523409826 E66.9 Left lower quadrant pain 334283291 R10.32 Anxiety 48539987 F41.9 [id number] MD Kayla Fuentes (Adult Med) [address] [place] [address] [phone] 0 06/20/2016 15:53:31 06/20/2016 16:20:52 Acute pharyngitis 091459816 J02.9 Vaginitis and vulvovaginitis 902141566 N76.0 Bladder mu scle dysfunction - overactive 434743867 N32.81 Low back pain 599223470 M54.5 Asthma 480156376 J45.90 9 Painful ur ging to urinate 13748521 R30.0 [id number] Tamara Oliva MD [facility] (Adult Med) [address] [place] [address] [phone] 0 08/21/2016 15:26:31 08/21/2016 16:03:02 Dental abscess 595118641 K04.7 Low back pain 441059428 M54.5 Obesity 651282564 E66.9 Hypothyroidism 36629315 E03.9 Hypertensive disorder 38 417265 I10 Hyperlipidemia 22100137 E78.5 Gastroesop hageal reflux disease 398753419 K21.9 Hand eczema 193978748 L3 0.9 Administra tion of influenza vaccine 30038245 Z23 [id number] Tamara Oliva MD [facility] (Adult Med) [address] [place] [address] [phone] 0 02/06/2017 12:10:00 02/06/2017 12:47:05 Headache 60298513 R51 Low back pain 857136085 M54.5 Hypertensive disorder 38 774554 I10 Hypothyroidism 39552693 E03.9 Hyperlipidemia 99296856 E78.5 Diabetes mellitus 653446 09 E11.9 Vaginitis and vulvovaginitis 923539631 N76.0 Dental abscess 919138737 K04.7 left lower molar , cracked tooth [id number] Tamara Oliva MD [facility] (Adult Med) [address] [place] [address] [phone] 0 03/27/2017 11:59:41 03/27/2017 13:11:05 Diabetes mellitus 57602329 E11.9 Hyperlipidemia 84123576 E78.5 Anxiety 31219907 F41.9 Obesity 175320667 E66.9 Hypothyroidism 81115497 E03.9 Hypertensive disorder 38 618622 I10 Low back pain 110211116 M54.5 Hand eczema 570122976 L3 0.9 Bladder mu scle dysfunction - overactive 236296239 N32.81 Gastroesop hageal reflux disease 054288680 K21.9 Asthma 713860426 J45.90 9 Inflammati on of joint of shoulder region 309714284 M13.163 [id number] MD Kayla Fuentes (Adult Med) [address] [place] [address] [phone] 0 07/07/2017 16:20:14 07/07/2017 16:57:45 Diabetes mellitus 93098880 E11.9 Hyperlipidemia 05695695 E78.5 Hypothyroidism 80858789 E03.9 Hypertensive disorder 38 468464 I10 Low back pain 719571950 M54.5 Headache 18670168 R51 Obesity 354470395 E66.9 [id number] MD Kayla Fuentes (Adult Med) [address] [place] [address] 67945-923 0 09/15/2017 11:41:12 09/15/2017 12:49:44 Diabetes mellitus 70016074 E11.9 Low back pain 886218932 M54.5 Sciatica 13874117 M54.31 right worse than left Administra tion of influenza vaccine 11536684 Z23 Asthma 873419218 J45.90 9 Gastroesop hageal reflux disease 226084238 K21.9 Hand eczema 848707556 L3 0.9 Hypertensive disorder 38 276391 I10 Hypothyroidism 24101214 E03.9 Obesity 822966660 E66.9 Hyperlipidemia 70096921 E78.5 [id number] MD Kayla Fuentes (Adult Med) [address] [place] [address] [phone] 0 11/09/2017 14:42:58 11/10/2017 08:59:00 Hand eczema 197775634 L30.9 Diabetes mellitus 811884 09 E11.9 Pain of ri ght shoulder joint 8030856170 1621508 M25.511 Asthma 730551160 J45.90 9 Vaginitis and vulvovaginitis 710511265 N76.0 Hypothyroidism 94510346 E03.9 Low back pain 865962342 M54.5 [id number] ANJU ROMAN (Adult Med) [address] [place] [address] [phone] 0 03/25/2018 11:24:56 03/25/2018 11:57:49 Streptococcal sore throat 14196973 J02.0 stop penicillin start augmentin x 10 daysstart prednisone x 3 daysdiscus sed impact of steroid on blood sugarsuse apap for sore throatDM is uncontroll ed currentlyf /u nir on DM [id number] MD Kayla Fuentes (Adult Med) [address] [place] [address] [phone] 0 05/06/2018 11:43:25 05/10/2018 09:46:17 Pain of right hip joint 3622091552 94848 M25.551 Sciatica 99736580 M54.31 right worse than left [id number] MD Kayla Fuentes (Adult Med) [address] [place] [address] [phone] 0 07/22/2018 15:52:27 07/22/2018 16:51:35 Hypertensive disorder 89034459 I10 Type 2 ren betes mellitus 58837387 E11.9 Chronic id iopathic constipation 01189669 K59.04 Acute sinusitis 69001828 J01.90 Muscle spa sm of thoracic back 1047529266 26343 M62.830 Sleep apnea 40680282 G47 .30 Inflammati on of joint of shoulder region 052741231 M13.811 Gastroesop hageal reflux disease 590391778 K21.9 Hypothyroidism 26602834 E03.9 Obesity 944299328 E66.9 Hyperlipidemia 22055081 E78.5 [id number] MD Kayla Fuentes (Adult Med) [address] [place] [address] [phone] 0 08/19/2018 16:03:29 08/23/2018 10:55:21 Diabetes mellitus 17046459 E11.9 Type 2 ren betes mellitus 05599488 E11.9 Administra tion of influenza vaccine 45241120 Z23 [id number] MD Kayla Fuentes (Adult Med) [address] [place] [address] [phone] 0 10/11/2018 10:30:30 10/12/2018 10:22:34 Acute sinusitis 73713577 J01.90 Low back pain 868609051 M54.5 Diabetes mellitus 373960 09 E11.9 Type 2 ren betes mellitus 21501282 E11.9 Sleep apnea 10173791 G47 .30 Hypothyroidism 05385103 E03.9 Hyperlipidemia 15251875 E78.5 Obesity 601567745 E66.9 [id number] MD Kayla Fuentes (Adult Med) [address] [place] [address] [phone] 0 03/03/2019 13:54:39 03/04/2019 09:04:53 Type 2 diabetes mellitus 14441085 E11.9 Gastroesop hageal reflux disease 787252465 K21.9 Low back pain 817533183 M54.5 Hypothyroidism 62221288 E03.9 Obesity 331227081 E66.9 Hyperlipidemia 64318904 E78.5 Diabetes mellitus 707245 09 E11.9 Nausea 160318481 R11.0 Chronic id iopathic constipation 97002380 K59.04 Pain in lower limb 10689 006 M79.669 Acute sinusitis 00565831 J01.90 Rectal pain 65633393 K62 .89 Sleep apnea 06906186 G47 .30 [id number] [facility] [address] [place] [address] 62956-114 0 05/19/2019 14:47:48 05/19/2019 16:27:45 Pain in lower limb 43412256 M79.669 Type 2 ren betes mellitus 09569386 E11.9 Gastroesop hageal reflux disease 740314928 K21.9 Hypothyroidism 47928843 E03.9 Hyperlipidemia 65239696 E78.5 Vaginitis 63109288 N76.0 Nausea 592976097 R11.0 Steatotic liver disease 208212231 K76.0 Sleep apnea 78504809 G47 .30 Low back pain 610904493 M54.5 Obesity 358158004 E66.9 [id number] [facility] [address] [place] [address] [phone] 0 06/21/2019 14:34:07 06/22/2019 08:52:46 Asthma 646968305 J45.909 Steatotic liver disease 935229438 K76.0 Gastroesop hageal reflux disease 223653408 K21.9 Hypothyroidism 03307210 E03.9 Obesity 299408701 E66.9 Hyperlipidemia 29783724 E78.5 Diabetes mellitus 910268 09 E11.9 Helicobact er pylori gastrointestinal tract infection 128032452 B96.81 Disorder of scalp 965221 006 L98.9 Hearing lo ss in left ear 7671958256 799467 H91.92 Type 2 ren betes mellitus 50046387 E11.9 Sleep apnea 42351758 G47 .30 Headache 45794709 R51 Low back pain 943881994 M54.5 Hypertensive disorder 38 035909 I10 [id number] MD Kayla Fuentes (Adult Med) [address] [place] [address] [phone] 0 08/08/2019 11:11:14 08/09/2019 15:45:59 Vaginitis 50264489 N76.0 Pain of bi lateral thighs 6885159307 6198128 M79.652 left greater than right Numbness a nd tingling sensation of skin 3818489668 02 R20.2 Headache 42218462 R51 a 10 on a scale of 1 to 10 ,, a nerve like shocking forehead Sciatica 97565729 M54.31 right worse than left Disorder of scalp 427469 006 L98.9 Helicobact er pylori gastrointestinal tract infection 074826429 B96.81 Type 2 ren betes mellitus 40921906 E11.9 Steatotic liver disease 031561285 K76.0 Asthma 144062315 J45.90 9 Gastroesop hageal reflux disease 134493031 K21.9 Low back pain 375286634 M54.5 Hypertensive disorder 38 446755 I10 Hypothyroidism 59382709 E03.9 Hyperlipidemia 60091145 E78.5 [id number] [facility] [address] [place] [address] [phone] 0 08/22/2019 17:23:23 08/22/2019 18:18:53 Acute bronchitis 45542580 J20.9 Type 2 ren betes mellitus 37556471 E11.9 Steatotic liver disease 425647988 K76.0 Sleep apnea 03222718 G47 .30 Asthma 413181705 J45.90 9 Gastroesop hageal reflux disease 878810894 K21.9 Bladder mu scle dysfunction - overactive 528682693 N32.81 Low back pain 967612354 M54.5 Hypothyroidism 53446866 E03.9 Hyperlipidemia 81684226 E78.5 Hypertensive disorder 38 979520 I10 [id number] MD Kayla Fuentes (Adult Med) [address] [place] [address] [phone] 0 09/20/2019 15:39:56 09/20/2019 17:24:14 Acute sinusitis 14774848 J01.90 Allergic rhinitis 820770 04 J30.9 Low back pain 855251574 M54.5 Type 2 ren betes mellitus 74963863 E11.9 Sciatica 92733305 M54.31 right worse than left Pain of ri ght hip joint 8472918918 66031 M25.551 Neuropathy 132041006 G62 .9 Administra tion of influenza vaccine 16303612 Z23 Pain of bi lateral thighs 4710023280 2289191 M79.652 left greater than right Steatotic liver disease 692278153 K76.0 Sleep apnea 90538626 G47 .30 Asthma 641313688 J45.90 9 Gastroesop hageal reflux disease 173855481 K21.9 Hypertensive disorder 38 413350 I10 Hypothyroidism 87325674 E03.9 Hyperlipidemia 28604106 E78.5 Diabetes mellitus 015892 09 E11.9 [id number] [facility] [address] [place] [address] [phone] 0 10/18/2019 15:26:23 10/18/2019 16:28:59 Sciatica 15629822 M54.31 right worse than left Allergic rhinitis 827955 04 J30.9 Anxiety 78935407 F41.9 Asthma 207664706 J45.90 9 Gastroesop hageal reflux disease 453949149 K21.9 Hyperlipidemia 72720073 E78.5 Hypothyroidism 88703087 E03.9 Hypertensive disorder 38 798888 I10 Neuropathy 913400203 G62 .9 Type 2 ren betes mellitus 83002590 E11.9 [id number] Tamara Oliva MD [facility] (Adult Med) [address] [place] [address] 94219-480 0 10/25/2019 10:16:11 10/26/2019 09:58:10 Numbness and tingling sensation of skin 8709124820 02 R20.2 Sciatica 43349815 M54.31 right worse than left Hyperlipidemia 97725127 E78.5 Hypothyroidism 04795745 E03.9 Type 2 ren betes mellitus 02887880 E11.9 Allergic rhinitis 339696 04 J30.9 Low back pain 680901953 M54.5 Sleep apnea 76683096 G47 .30 Neuropathy 138768800 G62 .9 Gastroesop hageal reflux disease 231814539 K21.9 Diabetes mellitus 655656 09 E11.9 [id number] Tamara Oliva MD Kayla (Adult Med) [address] [place] [address] [phone] 0 07/03/2020 11:53:07 07/04/2020 10:41:59 Hypertensive disorder 37744083 I10 Type 2 ren betes mellitus 45834904 E11.9 Peripheral venous insufficiency 64031629 I87.2 Neuropathy 227162162 G62 .9 Diabetes mellitus 733042 09 E11.9 Steatotic liver disease 312584519 K76.0 Sleep apnea 31593276 G47 .30 Allergic rhinitis 664500 04 J30.9 Anxiety 82887120 F41.9 Inflammati on of joint of shoulder region 892267991 M13.811 Asthma 082314609 J45.90 9 Bilateral acute deep vein thrombosis of femoral veins 5285472374 17641 I82.413 Chronic id iopathic constipation 05921565 K59.04 Deep venou s thrombosis of lower extremity 922430090 I82.409 Gastroesop hageal reflux disease 020570433 K21.9 Hyperlipidemia 37484783 E78.5 Hypothyroidism 99014774 E03.9 [id number] Tamara Oliva MD [facility] (Adult Med) [address] [place] [address] [phone] 0 08/31/2020 12:10:00 08/31/2020 12:59:53 Hyperlipidemia 85920650 E78.5 Hypothyroidism 30587189 E03.9 Low back pain 913016117 M54.5 Nausea 738111388 R11.0 Obesity 412891835 E66.9 Peripheral venous insufficiency 67234151 I87.2 Sleep apnea 92966692 G47 .30 Type 2 ren betes mellitus 03008325 E11.9 Neuropathy 931249816 G62 .9 Allergic rhinitis 112612 04 J30.9 Asthma 396182782 J45.90 9 Chronic id iopathic constipation 10142423 K59.04 Gastroesop hageal reflux disease 034934535 K21.9 [id number] Tamara Oliva MD [facility] (Adult Med) [address] [place] [address] 22513-157 0 10/01/2020 08:00:39 10/01/2020 11:31:30 Allergic rhinitis 03249781 J30.9 Asthma 689154367 J45.90 9 Gastroesop hageal reflux disease 399922232 K21.9 Headache 36973621 R51.9 Anxiety 11398356 F41.9 Bilateral acute deep vein thrombosis of femoral veins 8696907295 66567 I82.413 Type 2 ren betes mellitus 93565604 E11.9 Steatotic liver disease 718263391 K76.0 Sleep apnea 13753676 G47 .30 Peripheral venous insufficiency 98431188 I87.2 Neuropathy 007027680 G62 .9 [id number] Tamara Oliva MD [facility] (Adult Med) [address] [place] [address] [phone] 0 11/13/2020 08:15:27 11/13/2020 16:49:12 Gastroesophageal reflux disease 950774329 K21.9 Low back pain 815715060 M54.5 Type 2 ren betes mellitus 34486145 E11.9 Neuropathy 790458392 G62 .9 Headache 57812618 R51.9 Sleep apnea 39349675 G47 .30 Peripheral venous insufficiency 96440239 I87.2 Hypothyroidism 69947548 E03.9 Hypertensive disorder 38 676929 I10 Hyperlipidemia 10522075 E78.5 Deep venou s thrombosis of lower extremity 563962245 I82.409 Chronic id iopathic constipation 87352296 K59.04 Asthma 341176894 J45.90 9 Anxiety 92802702 F41.9 Allergic rhinitis 766447 04 J30.9 [id number] Tamara Oliva MD [facility] (Adult Med) [address] [place] [address] 74770-412 0 12/14/2020 10:03:28 12/14/2020 16:25:28 Vaginitis 65778457 N76.0 Pilonidal cyst 31836413 L05.91 Type 2 ren betes mellitus 90451144 E11.9 Asthma 770285112 J45.90 9 Anxiety 34862622 F41.9 SARS-CoV-2 596463061 U07 .1 Allergic rhinitis 264261 04 J30.9 Chronic id iopathic constipation 39841136 K59.04 Deep venou s thrombosis of lower extremity 388588273 I82.409 Sleep apnea 72420899 G47 .30 Peripheral venous insufficiency 85937447 I87.2 Neuropathy 952505165 G62 .9 Low back pain 772774904 M54.5 Hypothyroidism 85597197 E03.9 Hypertensive disorder 38 999443 I10 Hyperlipidemia 49602219 E78.5 [id number] Tamara Oliva MD [facility] (Adult Med) [address] [place] [address] 93651-135 0 01/18/2021 08:10:12 01/21/2021 08:20:22 Pain in lower limb 09046564 M79.669 Disorientated 86023685 R 41.0 Impaired g astric emptying 205109906 K30 Hypertensive disorder 38 773938 I10 Hyperlipidemia 29169031 E78.5 Allergic rhinitis 073186 04 J30.9 Anxiety 79885914 F41.9 Inflammati on of joint of shoulder region 409932972 M13.811 Asthma 859310334 J45.90 9 Chronic id iopathic constipation 72986572 K59.04 Deep venou s thrombosis of lower extremity 790075068 I82.409 Gastroesop hageal reflux disease 088846360 K21.9 Hypothyroidism 86906394 E03.9 Low back pain 925662163 M54.5 Neuropathy 075685618 G62 .9 Peripheral venous insufficiency 68803286 I87.2 Sleep apnea 18737014 G47 .30 Steatotic liver disease 367057302 K76.0 Type 2 ren betes mellitus 85631866 E11.9 [id number] Tamara Oliva MD [facility] (Adult Med) [address] [place] [address] [phone] 0 02/01/2021 10:04:41 02/01/2021 16:28:43 Deep venous thrombosis of lower extremity 707298065 I82.409 Allergic rhinitis 339280 04 J30.9 Anxiety 10528219 F41.9 Asthma 162859363 J45.90 9 Chronic id iopathic constipation 54116235 K59.04 Cramp in lower limb 4499 87248 R25.2 Diabetes mellitus 930904 09 E11.9 Gastroesop hageal reflux disease 506118025 K21.9 Hyperlipidemia 22273171 E78.5 Hypertensive disorder 38 834899 I10 Hypothyroidism 80270676 E03.9 Low back pain 624136392 M54.5 Neuropathy 276968560 G62 .9 Pain of bi lateral thighs 6398526385 0566269 M79.652 left greater than right Peripheral venous insufficiency 54488784 I87.2 Sleep apnea 82184107 G47 .30 Steatotic liver disease 863432722 K76.0 Type 2 ren betes mellitus 25928839 E11.9 [id number] Tamara Oliva MD [facility] (Adult Med) [address] [place] [address] [phone] 0 03/04/2021 08:24:18 03/04/2021 16:13:37 Diabetes mellitus 69083214 E11.9 Sleep apnea 70885078 G47 .30 [id number] Tamara Oliva MD [facility] (Adult Med) [address] [place] [address] 36971-816 0 04/05/2021 12:26:55 04/05/2021 15:08:17 Esophagitis 76431148 K20.90 Nausea 781489472 R11.0 Gastroesop hageal reflux disease 910621803 K21.9 Hyperlipidemia 67640546 E78.5 Hypothyroidism 60065603 E03.9 Type 2 ren betes mellitus 41123765 E11.9 Neuropathy 984908943 G62 .9 Asthma 625737855 J45.90 9 Allergic rhinitis 548056 04 J30.9 Sleep apnea 96781183 G47 .30 [id number] Tamara Oliva MD [facility] (Adult Med) [address] [place] [address] [phone] 0 09/13/2021 15:38:35 09/13/2021 16:24:02 Administration of influenza vaccine 74137378 Z23 Type 2 ren betes mellitus 14256269 E11.9 Vaginitis 92093516 N76.0 Headache 10370042 R51.[address] of abdo men abnormal 3557156173 0688807 R93.5 Allergic rhinitis 520545 04 J30.9 Anxiety 76738503 F41.9 Asthma 555975758 J45.90 9 Deep venou s thrombosis of lower extremity 446170257 I82.409 Gastroesop hageal reflux disease 423241110 K21.9 Hyperlipidemia 37140382 E78.5 Hypertensive disorder 38 593242 I10 Hypothyroidism 51807300 E03.9 Low back pain 434946353 M54.50 Neuropathy 855295865 G62 .9 Peripheral venous insufficiency 90616395 I87.2 Sleep apnea 78794347 G47 .30 Steatotic liver disease 807245606 K76.0 [id number] Tamara Oliva MD [facility] (Adult Med) [address] [place] [address] 45333-584 0 10/18/2021 17:11:30 10/21/2021 09:50:55 Inguinal pain 652866933 R10.2 right Type 2 ren betes mellitus 96964017 E11.9 Acute sinusitis 04903970 J01.90 Diabetes mellitus 098616 09 E11.9 Vaginitis 17724187 N76.0 Peripheral venous insufficiency 64825917 I87.2 Neuropathy 689495281 G62 .9 Low back pain 969524943 M54.50 Impaired g astric emptying 892634905 K30 Hypothyroidism 53140223 E03.9 Hypertensive disorder 38 732700 I10 Hyperlipidemia 66503494 E78.5 Gastroesop hageal reflux disease 085161612 K21.9 Deep venou s thrombosis of lower extremity 050945172 I82.987 [id number] Tamara Oliva MD [facility] (Adult Med) [address] [place] [address] [phone] 0 04/17/2022 09:31:13 04/18/2022 09:12:04 Fracture of multiple ribs 7402542 S22.41XA upper anterior Gastroesop hageal reflux disease 610280329 K21.9 Neuropathy 002810591 G62 .9 Pain of ri ght hip joint 8131611874 42934 M25.551 Pain in lower limb 67662 006 M79.669 Rectal pain 57015674 K62 .89 Peripheral venous insufficiency 13428005 I87.2 Type 2 ren betes mellitus 65609593 E11.9 Headache 42094914 R51.9 Allergic rhinitis 510619 04 J30.9 Anxiety 03688805 F41.9 Asthma 473461832 J45.90 9 Chronic id iopathic constipation 86204181 K59.04 Hyperlipidemia 93128868 E78.5 Hypertensive disorder 38 283143 I10 Hypothyroidism 35369387 E03.9 Impaired g astric emptying 359701048 K30 Low back pain 918663061 M54.50 Sleep apnea 52763942 G47 .30 [id number] MD Kayla Fuentes (Adult Med) [address] [place] [address] [phone] 0 05/22/2022 14:41:57 05/26/2022 12:24:13 Administration of pneumococcal vaccine 79617475 Z23 Administra tion of tetanus vaccine 429197500 Z23 Deep venou s thrombosis of lower extremity 528555177 I82.409 Gastroesop hageal reflux disease 431347044 K21.9 Hyperlipidemia 35340509 E78.5 Hypothyroidism 04095198 E03.9 Neuropathy 398698895 G62 .9 Sleep apnea 45175963 G47 .30 Type 2 ren betes mellitus 04264701 E11.9 Headache 54728719 R51.9 Vaginitis 36858014 N76.0 Allergic rhinitis 067384 04 J30.9 Anxiety 86657106 F41.9 Inflammati on of joint of shoulder region 183894569 M13.811 Asthma 797583130 J45.90 9 Chronic id iopathic constipation 00753752 K59.04 Hypertensive disorder 38 823145 I10 Steatotic liver disease 067237114 K76.0 [id number] LEIDY MANZANARES (Peds) [address] [place] [address] [phone] 0 07/30/2022 10:01:52 07/30/2022 12:56:10 Administration of SARS-CoV-2 mRNA vaccine 2477201192 Z23 [id number] MD Kayla Shore (Adult Med) [address] [place] [address] [phone] 0 11/12/2022 10:04:07 11/13/2022 11:42:46 Morbid obesity 498728051 E66.01 Obesity 009609225 E66.9 Sinusitis [id number] J32.9 Injury of musculoskeletal system [id number] T14.8XXA [id number] MD Kayla Shore (Adult Med) [address] [place] [address] [phone] 03/03/2023 15:28:12 03/03/2023 16:24:17 Screening for malignant neoplasm of colon [id number] Z12.11 [id number] MD Kayla Shore (Adult Med) [address] [place] [address] [phone] 07/14/2024 14:53:51 07/15/2024 12:11:06 Gastroesophageal reflux disease 084626409 K21.9 Hyperlipidemia 25575656 E78.5 Hypothyroidism 82953478 E03.9 Lower back injury 066157 005 S39.92XA Neuropathy 159748757 G62 .9 Deep venou s thrombosis of lower extremity 870691395 I82.409 Type 2 ren betes mellitus 75629166 E11.3213 [id number] MD Kayla Shore (Adult Med) [address] [place] [address] [phone] 08/25/2024 15:32:47 08/30/2024 12:18:14 Obesity 083035696 E66.8 Type 2 ren betes mellitus 89052768 E11.3213 Will increase Basaglar to 30U BID and increase to 35 U BID if FBG >130 mg/dl and add Farxiga 10 mg/d Pain of le ft knee region [id number] 70560 M25.957 [id number] MD Kayla Shore (Adult Med) [address] [place] [phone] 10/06/2024 15:42:52 10/07/2024 11:42:28 Pain of ear 679834499 H92.09 Type 2 ren betes mellitus 55755394 E11.3213 Increase Basaglar to 40U BID. Cannot tolerate metformin Steatotic liver disease 044446102 K76.0 Headache 94472434 R51.9 [id number] MD Kayla Shore (Adult Med) [address] [place] [address] [phone] 03/02/2025 14:51:33 03/03/2025 15:57:55 Headache 84278431 R51.9 Viral syndrome 064578573 B34.9 [id number] MD Kayla Shore (Adult Med) [address] [place] [address] [phone] 03/30/2025 11:27:27 04/03/2025 17:48:22 Persistent cough 857774476 R05.3 Pleuritic pain 1188168 R 07.81 Pain in ri ght lower limb 873494962 M79.604 Health Concerns Section Related Observation LastModified by Organization Detai ls LastModified Time None Recorded Concern Status LastModified by Organization Details LastModified Time None Recorded Advance Directives Directive N: Payers Insurance Date Sequence Insurance Name Policy Number Policy Hernandez Covered Member ID Hernandez Member ID Guarantor Name 07/17/2024 1 [facility] PRIOR TO 05/30/2021 (MEDICAID REPLACEMENT - HMO) Madhavi Stein [id number] Madhavi Setin 11/09/2017 2 *SELF PAY* Jen Stein 03/30/2025 1 [facility] ON OR AFTER 05/30/21 (MEDICAID REPLACEMENT - HMO) Madhavi Stein [id number] Madhavi Stein Notes Date Note Type Note Provider Name and Address Organization Details Recorded Time 07/14/2024 text/html Here for DM f/u .She has been off her meds for several months Juanito Greco MD Attn: [address] [place], [address], [place] [facility] 07/14/2024 15:55:26 08/25/2024 text/html Here for DM f/u. Currently using 27 U Basaglar BID as she had before. FBS averaging 200 mg/dl. Has pain in left knee one day ago Juanito Greco MD Attn: [address] [place], [address], [place] [facility] 08/25/2024 17:10:39 10/06/2024 text/html Here for routine f/u. FBG averaging 150-170mg/dl. She has noticed intermittent swelling of her ear and parotid region. Admitted six days ago for CP .Cardiac evaluation negative for acute cardiac ischemia Juanito Greco MD Attn: [address] [place], [address], [place] [facility] 10/06/2024 17:08:40 03/02/2025 text/html Has has three da y history of pain, generalized baby ache and diarrhea Juanito Greco MD Attn: [address] [place], [address], [facility] 03/02/2025 15:39:51 03/30/2025 text/html Has persistent cough since last visit. Was treated for lung consolidation two weeks ago. She has pleuritic pain. Developed pain in her right lower about two days ago Juanito Greco MD Attn: [address] [place], [address], [facility] 03/30/2025 12:22:00 OBGyn Episode No OBEpisode recorded.
--- OUTSIDE RECORDS SUMMARY | 2025-05-12 23:51 | XMS_ITS | Clinical Summary ---
Author Organization [facility] Address [address] [place] [phone] Care Team Providers Care Metal Buffer Name Role Phone Unknown, Notinfile Primary Care [...] on file Legal Sex Female 8:03 AM ROLLER MAN Gender Identity Not on file Sexual Orientation [...] season) 2024 07/30/2022, 12/12/2021, 11/14/2021 Influenza Vaccine (Season Ended) 2025 09/13/2021, 09/18/2020, 09/20/2019, Additional history exists DTaP/Tdap/Td Vaccine (2 - Td or Tdap) 05/22/2032 05/22/2022 Hepatitis C Screening Completed 10/31/2013 Procedures Procedure Name Priority Date/Time Associated Diagnosis Comments THINPREP PAP Routine 01/03/2015 1:45 AM ROLLER MAN HEPATITIS PANEL, ACUTE Routine 10/31/2013 3:34 PM ROLLER MAN from Last 3 Months or Most Recently Relevant to Health Maintenance Results * ThinPrep Pap (01/03/2015 1:45 AM ROLLER MAN) Thin Prep Pap Smear SEE BELOW () 01/13 8:49 AM ROLLER MAN [facility] HISTORICAL RESULTS Comment: Range Management Specialist ThinPrep Cytology Final Report ThinPrep Pap Specimen Source Cervix/Endocervix Specimen Adequacy Satisfactory for interpretation, endocervical cells (transformation zone) present. Interpretation Negative for intraepithelial lesion or malignancy. 01/13/15 Conservation Of Resources Commissioner: RIVKA Benites(ASCP) 01/13/15 Verified By: RIVKA Benites(ASCP) electronic signature [facility] Department of Pathology For questions regarding this case, call ext. [phone] CPT Code(s) 06870 Clinical History LMP: [id number] : N : N IUD: N Hormone Therapy: N Postmenopausal: N Previous surgery date and type: N Hysterectomy: N Chemotherapy: N FARIDA Exposure: N Radiation: N Previous Abnormal Pap? Details: N Diagnostic or Screening Pap Test: Screening Performed by [facility], [address] [place] [id number] [email or web address], Blaze Weems MD - Lab. Director 01/03/2015 1:45 AM ROLLER MAN 01/03/2015 3:49 PM ROLLER MAN Luis Saenz MD LAB PATHOLOGY ORDERABLE S Final Result [facility] HISTORICAL RESULTS * Hepatitis panel, acute (10/31/2013 3:34 PM ROLLER MAN) HepBsAg NONREACT NONREACTIVE 10/31/2013 5:55 PM ROLLER MAN [facility] HISTORICAL RESULTS Comment: Siemens CentaurXP using AMEYA (chemiluminescent immunoassay) technology. NONREACTIVE: IgM antibodies to Hepatitis B Surface antigen not detected. REACTIVE: IgM antibodies to Hepatitis B Surface antigen detected. Reactive results will be confirmed by neutralization testing. HBsAb (immune status) NONREACT NONREACTIVE 10/31/2013 5:46 PM ROLLER MAN [facility] HISTORICAL RESULTS Comment: Siemens CentaurXP using AMEYA (chemiluminescent immunoassay) technology. NONREACTIVE: IgM antibodies to Hepatitis B Surface antibody not detected. REACTIVE: IgM antibodies to Hepatitis B Surface antibody detected. Hep B core IgM NONREACT NONREACTIVE 3 6:40 PM ROLLER MAN [facility] HISTORICAL RESULTS Comment: Siemens CentaurXP using AMEYA (chemiluminescent immunoassay) technology. NONREACTIVE: IgM antibodies to Hepatitis B Core antigen not detected. EQUIVOCAL: IgM antibodies to Hepatitis B Core antigen may or may not be present. Obtain a new specimen and retest. REACTIVE: IgM antibodies to Hepatitis B Core antigen detected. Hep A IgM NONREACT NONREACTIVE 10/31/2013 6:40 PM ROLLER MAN [facility] HISTORICAL RESULTS Comment: Siemens CentaurXP using AMEYA (chemiluminescent immunoassay) technology. NONREACTIVE: IgM antibodies to Hepatitis A not detected. This does not exclude possibility of exposure to Hepatitis A or early acute infection. EQUIVOCAL:IgM antibodies to Hepatitis A may or may not be present. Suggest recollection and retest. REACTIVE: Antibodies to Hepatitis A detected. Hep C Ab NONREACT NONREACTIVE 10/31/2013 6:40 PM ROLLER MAN [facility] HISTORICAL RESULTS Comment: Siemens CentaurXP using [...] to Hepatitis C detected. 10/31/2013 3:34 PM ROLLER MAN 10/31/2013 4:49 PM ROLLER MAN Luis Saenz MD LAB MICROBIOLOGY - [facility] ORDERABLES Final Result [facility] HISTORICAL RESULTS from Last 3 Months or Most Recently Relevant to Health Maintenance Insurance [facility] Care Teams Metal Buffer Relationship Specialty Start Date End Date Unknown, Notinfile PCP - General 01/03/19
[2025-05-13 00:02] VITALS: BP 181/67; PULSE 69; RESP 15; TEMP 37.1; O2SAT 98
--- OUTSIDE RECORDS SUMMARY | 2025-05-13 00:17 | XMS_ITS | Encounter Summary ---
Author Organization [facility] Facility Care Team Providers Care Mechanical Project Engineer Name Role Phone Unknown, Notinfile Primary Care Provider Unavail able Encounter Details Date Type Department Care Team (Latest Contact Info) Description 09/17/2015 Orders Only [facility] CLINCONV Provider, MD Natasha [address] [place] [id number] Social History Tobacco Use Types Packs/Day Years Used Date Smoking Tobacco: Never Assessed Comments Unknown Sex and Gender Information Value Date Recorded Sex Assigned at Not on file Legal Sex Female 8:03 AM GRAPHIC DESIGN SPECIALIST Gender Identity Not on file Sexual [...] documented as of this encounter Care Teams Mechanical Project Engineer Relationship Specialty Start Date End Date Unknown, Notinfile PCP - General 01/03/19 documented as of this encounter
--- OUTSIDE RECORDS SUMMARY | 2025-05-13 00:17 | XMS_ITS | Clinical Summary ---
Author Organization [facility] Address [address] [facility] [address] [place] [address] Phone Care Team Providers Care Agriculture Instructor Name Role Phone Mike Victor Primary Care Provider [phone] Allergies No known active allergies Medications Bismuth [...] MEDICAID [facility] [employer] [employer] ATTN CLAIMS DEPT [place] [id number] Care Teams Agriculture Instructor Relationship Specialty Start Date End Date Mike Victor PA [address] [place] [address] PCP - General Physician Commodities Broker 03/25/19
--- OUTSIDE RECORDS SUMMARY | 2025-05-13 00:17 | XMS_ITS | Referral Summary ---
Author Organization [facility] Address [address] [place] [phone] Care Team Providers Care Commercial Credit Reviewer Name Role Phone Unknown, Notinfile Primary Care [...] on file Legal Sex Female 8:03 AM VEGETABLE TIER Gender Identity Not on file Sexual Orientation [...] Comments THINPREP PAP Routine 01/03/2015 1:45 AM VEGETABLE TIER HEPATITIS PANEL, ACUTE Routine 10/31/2013 3:34 PM VEGETABLE TIER from Last 3 Months or Most Recently Relevant to Health Maintenance Results * ThinPrep Pap (01/03/2015 1:45 AM VEGETABLE TIER) Thin Prep Pap Smear SEE BELOW () 01/13 8:[address] [facility] HISTORICAL RESULTS Comment: Compressor Mechanic ThinPrep Cytology Final Report ThinPrep Pap Specimen Source Cervix/Endocervix Specimen Adequacy Satisfactory for interpretation, endocervical cells (transformation zone) present. Interpretation Negative for intraepithelial lesion or malignancy. 01/13/15 Cvir Tech: RIVKA Benites(ASCP) 01/13/15 Verified By: RIVKA Benites(ASCP) electronic signature [facility], Department of Pathology For questions regarding this case, call ext. [phone] CPT Code(s) 09296 Clinical History LMP: [id number] : N : N IUD: N Hormone Therapy: N Postmenopausal: N Previous surgery date and type: N Hysterectomy: N Chemotherapy: N FARIDA Exposure: N Radiation: N Previous Abnormal Pap? Details: N Diagnostic or Screening Pap Test: Screening Performed by [facility], [address] [place] [id number] [email or web address], Blaze Weems MD - Lab. Director 01/03/2015 1:45 AM VEGETABLE TIER 01/03/2015 3:49 PM VEGETABLE TIER us Luis Saenz MD LAB PATHOLOGY ORDERABLE S Final Result [facility] HISTORICAL RESULTS * Hepatitis panel, acute (10/31/2013 3:34 PM VEGETABLE TIER) HepBsAg NONREACT NONREACTIVE 10/31/2013 5:[address] [facility] HISTORICAL RESULTS Comment: Siemens CentaurXP using AMEYA (chemiluminescent immunoassay) technology. NONREACTIVE: IgM antibodies to Hepatitis B Surface antigen not detected. REACTIVE: IgM antibodies to Hepatitis B Surface antigen detected. Reactive results will be confirmed by neutralization testing. HBsAb (immune status) NONREACT NONREACTIVE 10/31/2013 5:[address] [facility] HISTORICAL RESULTS Comment: Siemens CentaurXP using AMEYA (chemiluminescent immunoassay) technology. NONREACTIVE: IgM antibodies to Hepatitis B Surface antibody not detected. REACTIVE: IgM antibodies to Hepatitis B Surface antibody detected. Hep B core IgM NONREACT NONREACTIVE 3 6:[address] [facility] HISTORICAL RESULTS Comment: Siemens CentaurXP using AMEYA (chemiluminescent immunoassay) technology. NONREACTIVE: IgM antibodies to Hepatitis B Core antigen not detected. EQUIVOCAL: IgM antibodies to Hepatitis B Core antigen may or may not be present. Obtain a new specimen and retest. REACTIVE: IgM antibodies to Hepatitis B Core antigen detected. Hep A IgM NONREACT NONREACTIVE 10/31/2013 6:[address] [facility] HISTORICAL RESULTS Comment: Siemens [...] C Ab NONREACT NONREACTIVE 10/31/2013 6:40 PM VEGETABLE TIER [facility] [employer] [facility] HISTORICAL RESULTS Comment: Siemens CentaurXP using AMEYA [...] to Hepatitis C detected. 10/31/2013 3:34 PM VEGETABLE TIER 10/31/2013 4:49 PM VEGETABLE TIER Luis Saenz MD LAB MICROBIOLOGY - [facility] ORDERABLES Final Result [facility] HISTORICAL RESULTS from Last 3 Months or Most Recently Relevant to Health Maintenance Insurance [facility] Care Teams Commercial Credit Reviewer Relationship Specialty Start Date End Date Unknown, Notinfile PCP - General 01/03/19
--- OUTSIDE RECORDS SUMMARY | 2025-05-13 00:18 | XMS_ITS | Clinical Summary ---
Author Organization [facility] Address [address] [place] [phone] Care Team Providers Care Submarine Cable Equipment Technician Name Role Phone Unknown, Notinfile Primary [...] on file Legal Sex Female 8:03 AM APPLICATION SOFTWARE DEVELOPER Gender Identity Not on file Sexual Orientation [...] Comments THINPREP PAP Routine 01/03/2015 1:45 AM APPLICATION SOFTWARE DEVELOPER HEPATITIS PANEL, ACUTE Routine 10/31/2013 3:34 PM APPLICATION SOFTWARE DEVELOPER from Last 3 Months or Most Recently Relevant to Health Maintenance Results * ThinPrep Pap (01/03/2015 1:45 AM APPLICATION SOFTWARE DEVELOPER) Thin Prep Pap Smear SEE BELOW () 01/13 8:49 AM APPLICATION SOFTWARE DEVELOPER [facility] HISTORICAL RESULTS Comment: Housing Management Officer ThinPrep Cytology Final Report ThinPrep Pap Specimen Source Cervix/Endocervix Specimen Adequacy Satisfactory for interpretation, endocervical cells (transformation zone) present. Interpretation Negative for intraepithelial lesion or malignancy. 01/13/15 Track Grinder: RIVKA Benites(ASCP) 01/13/15 Verified By: RIVKA Benites(ASCP) electronic signature [facility] Department of Pathology For questions regarding this case, call ext. [phone] CPT Code(s) 26747 Clinical History LMP: [id number] : N : N IUD: N Hormone Therapy: N Postmenopausal: N Previous surgery date and type: N Hysterectomy: N Chemotherapy: N FARIDA Exposure: N Radiation: N Previous Abnormal Pap? Details: N Diagnostic or Screening Pap Test: Screening Performed by [facility], [address] [place] [id number] [email or web address], Blaze Weems MD - Lab. Director 01/03/2015 1:45 AM APPLICATION SOFTWARE DEVELOPER 01/03/2015 3:49 PM APPLICATION SOFTWARE DEVELOPER Luis Saenz MD LAB PATHOLOGY ORDERABLE S Final Result [facility] HISTORICAL RESULTS * Hepatitis panel, acute (10/31/2013 3:34 PM APPLICATION SOFTWARE DEVELOPER) HepBsAg NONREACT NONREACTIVE 10/31/2013 5:55 PM APPLICATION SOFTWARE DEVELOPER [facility] HISTORICAL RESULTS Comment: Siemens CentaurXP using AMEYA (chemiluminescent immunoassay) technology. NONREACTIVE: IgM antibodies to Hepatitis B Surface antigen not detected. REACTIVE: IgM antibodies to Hepatitis B Surface antigen detected. Reactive results will be confirmed by neutralization testing. HBsAb (immune status) NONREACT NONREACTIVE 10/31/2013 5:46 PM APPLICATION SOFTWARE DEVELOPER [facility] HISTORICAL RESULTS Comment: Siemens CentaurXP using AMEYA (chemiluminescent immunoassay) technology. NONREACTIVE: IgM antibodies to Hepatitis B Surface antibody not detected. REACTIVE: IgM antibodies to Hepatitis B Surface antibody detected. Hep B core IgM NONREACT NONREACTIVE 3 6:40 PM APPLICATION SOFTWARE DEVELOPER [facility] HISTORICAL RESULTS Comment: Siemens CentaurXP using AMEYA (chemiluminescent immunoassay) technology. NONREACTIVE: IgM antibodies to Hepatitis B Core antigen not detected. EQUIVOCAL: IgM antibodies to Hepatitis B Core antigen may or may not be present. Obtain a new specimen and retest. REACTIVE: IgM antibodies to Hepatitis B Core antigen detected. Hep A IgM NONREACT NONREACTIVE 10/31/2013 6:40 PM APPLICATION SOFTWARE DEVELOPER [facility] HISTORICAL RESULTS Comment: Siemens CentaurXP using AMEYA (chemiluminescent immunoassay) technology. NONREACTIVE: IgM antibodies to Hepatitis A not detected. This does not exclude possibility of exposure to Hepatitis A or early acute infection. EQUIVOCAL:IgM antibodies to Hepatitis A may or may not be present. Suggest recollection and retest. REACTIVE: Antibodies to Hepatitis A detected. Hep C Ab NONREACT NONREACTIVE 10/31/2013 6:40 PM APPLICATION SOFTWARE DEVELOPER [facility] HISTORICAL RESULTS Comment: Siemens CentaurXP using AMEYA [...] to Hepatitis C detected. 10/31/2013 3:34 PM APPLICATION SOFTWARE DEVELOPER 10/31/2013 4:49 PM APPLICATION SOFTWARE DEVELOPER Luis Saenz MD LAB MICROBIOLOGY - [facility] ORDERABLES Final Result [facility] HISTORICAL RESULTS from Last 3 Months or Most Recently Relevant to Health Maintenance Insurance [facility] Care Teams Submarine Cable Equipment Technician Relationship Specialty Start Date End Date Unknown, Notinfile PCP - General 01/03/19
--- OUTSIDE RECORDS SUMMARY | 2025-05-13 00:19 | XMS_ITS | Clinical Summary ---
Author Organization [facility] [employer] Address [address] [facility] [place] [address] Care Team Providers Care Stable Cleaner Name Role Phone Valente Musa Boucher APRN-ELECTRONICS MECHANIC APPRENTICE Primary Care Provider Source Comments [facility] [employer],non-owned Affiliates and Associated Physician Practices is amultiple site organization consisting of ambulatory clinics and hospital sitesin [place], [place], [place] and [place]. This disclosure is being madepursuant to the Care Everywhere program and may not contain all information available regarding this patient. Last updated 18.[facility] [employer] Allergies No known active allergies Medications * [...] patient's age to complete this topic Insurance [facility] Care Teams Stable Cleaner Relationship Specialty Start Date End Date Musa Victor, WOOD BARKER-ELECTRONICS MECHANIC APPRENTICE [address] [place] [address] PCP - General 06/07/20
--- NOTE | 2025-05-13 00:22 | ED.GENADULT ---
HPI - General Adult General Chief complaint: Unspecified <Ijeoma Aj PA-C - Last Filed: 05/13/25 14:11> Stated complaint: multiple complaints <Ijeoma Aj PA-C - Last Filed: 05/13/25 14:11> Time Seen by Provider: 05/13/25 00:05 <Ijeoma Aj PA-C - Last Filed: 05/13/25 14:11> Source: patient <АННА Esquivel Last Filed: 05/13/25 14:11> Mode of arrival: ambulatory <АННА Esquivel Last Filed: 05/13/25 14:11> Limitations: no limitations <Ijeoma Aj PA-C - Last Filed: 05/13/25 14:11> History of Present Illness HPI narrative: This is a 54 year old female that presents to the ER with two complaints. Reporting left ear pain, swelling, decreased hearing. Also reporting drainage, swelling, pain of the right labia. Denies fevers, dysuria, vomiting. <Ijeoma Aj PA-C - Last Filed: 05/13/25 14:11> Related Data Home medications: Home Medications ?Medication ?Instructions ?Recorded ?Confirmed ?Last Taken ?Type apixaban 5 mg tablet (Eliquis) 5 mg PO DAILY 06/16/20 09/30/24 09/29/24 21:00 History duloxetine 60 mg capsule,delayed 60 mg PO HS 06/16/20 09/30/24 09/29/24 21:00 History release insulin glargine 100 unit/mL (3 25 unit subcut HS 12/07/20 09/30/24 09/29/24 21:00 History mL) subcutaneous pen (Basaglar KwikPen U-100 Insulin) pregabalin 150 mg capsule 150 mg PO BID 12/07/20 09/30/24 09/29/24 21:00 History dapagliflozin propanediol 10 mg 10 mg PO DAILY 09/30/24 09/30/24 09/29/24 17:00 History tablet (Farxiga) rosuvastatin 40 mg tablet 40 mg PO QHS 09/30/24 09/30/24 09/29/24 21:00 History <Ijeoma Aj PA-C - Last Filed: 05/13/25 14:11> Allergies/adverse reactions: Allergies Allergy/AdvReac Type Severity Reaction Status Date / Time No Known Allergies Allergy Unknown Verified 05/13/25 00:04 <Ijeoma Aj PA-C - Last Filed: 05/13/25 14:11> Review of Systems Review of Systems: CONSTITUTIONAL: Denies fever ENT: Reports otalgia. GASTROINTESTINAL: Denies abdominal pain, nausea, vomiting GENITOURINARY: Denies dysuria <Ijeoma Aj PA-C - Last Filed: 05/13/25 14:11> All systems reviewed & are unremarkable except as noted in HPI and below <АННА Esquivel Last Filed: 05/13/25 14:11> PMF Past Medical History Medical History: Medical History Renal abscess Renal cyst Gastroparesis Neuropathy Adenomatous colon polyp Diabetes mellitus HTN (hypertension) DVT (deep venous thrombosis) approx 3-4 years ago HLD (hyperlipidemia) H. pylori infection COVID-19 Perirectal abscess Chronic anticoagulation Epigastric pain Perirectal ulcer Pneumonia due to 2019-nCoV Asthma <АННА Esquivel Last Filed: 05/13/25 14:11> Surgical History Surgical History: Surgical History H/O colonoscopy H/O esophagogastroduodenoscopy H/O section History of tonsillectomy <Ijeoma Aj PA-C - Last Filed: 05/13/25 14:11> Family History Family History: Family History Mother Diabetes mellitus Heart disease Acute myocardial infarction Sibling Diabetes mellitus <АННА Esquivel Last Filed: 05/13/25 14:11> Social History Social History: Social History Social History: Patient is and lives with her two children. 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 She is a full code. Smoking status: Never smoker Second hand tobacco smoke exposure: Yes Alcohol intake: never Substance use: never Substance use type: does not use Do You Feel Safe in your Home?: Yes Lack of Transportation: No Lack of Food: Never True Current Housing: I Have Housing Concerned About Future Housing: No Difficulty Paying Gas/Electric Bills: No Difficulty Paying for Meds: No Currently Unemployed: No Education: Decline to Answer Difficulty w/ Childcare or Family Care: No Gender identity (if verbalized by the patient): Female Sexual Orientation (if Verbalized by the Patient): Straight or Heterosexual Spiritual care concerns: No <Ijeoma Aj PA-C - Last Filed: 05/13/25 14:11> Exam Narrative: GENERAL: Well-appearing, well-nourished, and in no acute distress. HEAD: Normocephalic, atraumatic. EYES: PERRLA and EOMI. ENT: Nares clear, no rhinorrhea or epistaxis. Mucous membranes moist. Oropharynx without tonsillar hypertrophy exudate or other lesions. Right TM pearly diehl non-bulging. Left external auditory canal with moderate edema, irritation. No mastoid tenderness, erythema NECK: Supple. No adenopathy or masses. CHEST: Clear to auscultation. No respiratory distress. No wheezes rales or rhonchi HEART: Regular rate and rhythm. No murmur heard. Normal peripheral pulses. ABDOMEN: Soft, nontender, nondistended, normal active bowel sounds. EXTREMITIES: Normal range of motion. No edema. SKIN: Warm, dry, no rash. NEURO: No focal deficits. Alert and oriented x3. PSYCH: Normal mood and affect FEMALE GENITAL: Right labia majora with edema and induration. No fluctuance, although able to express yellow/clear drainage from the right labia <Ijeoma Aj PA-C - Last Filed: 05/13/25 14:11> Course SUPPLIER SPECIALIST/PA Physician Supervision I agree with midlevel documentation; I performed the medical decision making component of this evaluation. CT review them myself, some stranding around right labia majora, no obvious fluid collection. Given clindamycin here to cover cellulitis versus abscess and follow-up to PCP with return precautions provided <Lena Dempsey MD - Last Filed: 05/13/25 03:39> Vital Signs Vital signs: Vital Signs Temperature 98.8 F 05/13/25 00:02 Pulse Rate 69 05/13/25 00:02 Respiratory Rate 15 05/13/25 00:02 Blood Pressure 181/67 H 05/13/25 00:02 Pulse Oximetry 98 05/13/25 00:02 Oxygen Delivery Room Air 05/13/25 00:02 Temperature 98.8 F 05/13/25 00:02 Pulse Rate 62 05/13/25 04:40 Respiratory Rate 14 05/13/25 04:40 Blood Pressure 104/62 05/13/25 04:40 Pulse Oximetry 93 05/13/25 04:40 Oxygen Delivery Room Air 05/13/25 00:02 <Ijeoma Aj PA-C - Last Filed: 05/13/25 14:11> Vital Signs Temperature 98.8 F 05/13/25 00:02 Pulse Rate 69 05/13/25 00:02 Respiratory Rate 15 05/13/25 00:02 Blood Pressure 181/67 H 05/13/25 00:02 Pulse Oximetry 98 05/13/25 00:02 Oxygen Delivery Room Air 05/13/25 00:02 Temperature 98.8 F 05/13/25 00:02 Pulse Rate 62 05/13/25 04:40 Respiratory Rate 14 05/13/25 04:40 Blood Pressure 104/62 05/13/25 04:40 Pulse Oximetry 93 05/13/25 04:40 Oxygen Delivery Room Air 05/13/25 00:02 <Lena Dempsey MD - Last Filed: 05/13/25 03:39> Medical Decision Making MDM Narrative Medical decision making narrative: Patient presents to the ER for two complaints. Reporting left ear pain. Also reporting swelling and pain to the right labia. She is afebrile and nontoxic appearing. Exam is consistent with otitis externa. No mastoid tenderness or erythema. No obvious abscess of the labia on exam. Cbc without leukocytosis. Inflammatory markers are mildly elevated. Metabolic panel with normal kidney function. Blood sugar is quite elevated, but normal bicarb and no anion gap. CT abdomen/pelvis obtained to r/o abscess/deep space infection. Upon my interpretation showing cellulitis without focal abscess. Care taken over by Dr. Dempsey pending official read/disposition. Patient was given a dose of clindamycin in the ER IV <Ijeoma Aj PA-C - Last Filed: 05/13/25 14:11> Differential Diagnosis Differential Diagnosis: Abscess, cellulitis, otitis externa, otitis media <Ijeoma Aj PA-C - Last Filed: 05/13/25 14:11> Vital Signs Vital Signs: Vital Signs Temperature 98.8 F 05/13/25 00:02 Pulse Rate 69 05/13/25 00:02 Respiratory Rate 15 05/13/25 00:02 Blood Pressure 181/67 H 05/13/25 00:02 Pulse Oximetry 98 05/13/25 00:02 Oxygen Delivery Room Air 05/13/25 00:02 Temperature 98.8 F 05/13/25 00:02 Pulse Rate 62 05/13/25 04:40 Respiratory Rate 14 05/13/25 04:40 Blood Pressure 104/62 05/13/25 04:40 Pulse Oximetry 93 05/13/25 04:40 Oxygen Delivery Room Air 05/13/25 00:02 <Ijeoma Aj PA-C - Last Filed: 05/13/25 14:11> Vital Signs Temperature 98.8 F 05/13/25 00:02 Pulse Rate 69 05/13/25 00:02 Respiratory Rate 15 05/13/25 00:02 Blood Pressure 181/67 H 05/13/25 00:02 Pulse Oximetry 98 05/13/25 00:02 Oxygen Delivery Room Air 05/13/25 00:02 Temperature 98.8 F 05/13/25 00:02 Pulse Rate 62 05/13/25 04:40 Respiratory Rate 14 05/13/25 04:40 Blood Pressure 104/62 05/13/25 04:40 Pulse Oximetry 93 05/13/25 04:40 Oxygen Delivery Room Air 05/13/25 00:02 <Lena Dempsey MD - Last Filed: 05/13/25 03:39> Lab Data Lab results reviewed: Yes I reviewed the patient's lab results. <АННА Esquivel Last Filed: 05/13/25 14:11> Result diagrams: 05/13/25 01:33 05/13/25 01:33 <АННА Esquivel Last Filed: 05/13/25 14:11> Labs: Lab Results 05/13/25 Range/Units 01:33 WBC 5.5 (4.5-10.0) K/mm3 RBC 4.95 (4.2-5.4) M/mm3 Hgb 14.3 (12.0-15.0) g/dL Hct 43.8 (37.0-47.0) % MCV 88.5 (80-100) fl MCH 28.9 (26-34) pg MCHC 32.6 (32-36) g/dl RDW 12.4 (11.5-14.5) % Plt Count 216 (150-375) k/mm3 MPV 10.6 H (7.4-10.4) fl Immature Gran % (Auto) 0.4 (0-0.5) % Neut % (Auto) 58.9 (45.5-73.1) % Lymph % (Auto) 29.0 (18.3-44.2) % [place] % (Auto) 8.2 (2.6-8.5) % Eos % (Auto) 3.1 (0-4.4) % Baso % (Auto) 0.4 (0.2-1.2) % Lymph # (Auto) 1.59 (0.9-3.2) K/mm3 [place] # (Auto) 0.5 (0.1-0.6) K/mm3 Eos # (Auto) 0.2 (0-0.3) K/mm3 Baso # (Auto) 0.0 (0.0-0.1) K/mm3 Abs Immat Gran (auto) 0.02 (0.00-0.031) K/mm3 Absolute Neuts (auto) 3.2 (1.3-6.7) K/mm3 Absolute Nucleated RBC 0.000 (0.0-0.012) K/mm3 Nucleated RBC % 0.0 (0.0-0.2) % ESR 30 H (0-20) mm/hr Sodium 136 L (137-145) mmol/L Potassium 3.6 (3.4-5.0) mmol/L Chloride 100 (98-107) mmol/L Carbon Dioxide 28 (22-30) mmol/L Anion Gap 8 (4-12) mmol/L BUN 12 (7-17) mg/dL Creatinine 0.61 L (0.7-1.0) mg/dL Estim Creat Clear Calc 80 ml/min Estimated GFR > 60 (59 - ) Glucose 479 H (65-110) mg/dL Lactic Acid 1.0 (0.7-2.0) mmol/L Calcium 9.1 (8.4-10.2) mg/dL Total Bilirubin 0.3 (0.2-1.3) mg/dL AST 22 (14-36) U/L ALT 16 (6-35) U/L Alkaline Phosphatase 97 (38-126) U/L C-Reactive Protein 1.6 H (<1.0) mg/dL Total Protein 7.4 (6.3-8.2) g/dL Albumin 3.9 (3.5-5.1) g/dL Urine Color Yellow (Yellow) Urine Appearance Clear (Clear) Urine pH 6.5 (5.0-9.0) Ur Specific [place] 1.040 H (1.001-1.035) Urine Protein Negative (Negative) mg/dL Urine Glucose (UA) 3+ H (Negative) mg/dL Urine Ketones Negative (Negative) mg/dL Ur Blood (Man) Negative (Negative) Urine Nitrate Negative (Negative) Urine Bilirubin Negative (Negative) Urine Urobilinogen 0.2 (<2.0) mg/dL Leukocyte Esterase Rfl Negative (Negative) AZUCENA/UL <Ijeoma Aj PA-C - Last Filed: 05/13/25 14:11> Lab Results 05/13/25 Range/Units 01:33 WBC 5.5 (4.5-10.0) K/mm3 RBC 4.95 (4.2-5.4) M/mm3 Hgb 14.3 (12.0-15.0) g/dL Hct 43.8 (37.0-47.0) % MCV 88.5 (80-100) fl MCH 28.9 (26-34) pg MCHC 32.6 (32-36) g/dl RDW 12.4 (11.5-14.5) % Plt Count 216 (150-375) k/mm3 MPV 10.6 H (7.4-10.4) fl Immature Gran % (Auto) 0.4 (0-0.5) % Neut % (Auto) 58.9 (45.5-73.1) % Lymph % (Auto) 29.0 (18.3-44.2) % [place] % (Auto) 8.2 (2.6-8.5) % Eos % (Auto) 3.1 (0-4.4) % Baso % (Auto) 0.4 (0.2-1.2) % Lymph # (Auto) 1.59 (0.9-3.2) K/mm3 [place] # (Auto) 0.5 (0.1-0.6) K/mm3 Eos # (Auto) 0.2 (0-0.3) K/mm3 Baso # (Auto) 0.0 (0.0-0.1) K/mm3 Abs Immat Gran (auto) 0.02 (0.00-0.031) K/mm3 Absolute Neuts (auto) 3.2 (1.3-6.7) K/mm3 Absolute Nucleated RBC 0.000 (0.0-0.012) K/mm3 Nucleated RBC % 0.0 (0.0-0.2) % ESR 30 H (0-20) mm/hr Sodium 136 L (137-145) mmol/L Potassium 3.6 (3.4-5.0) mmol/L Chloride 100 (98-107) mmol/L Carbon Dioxide 28 (22-30) mmol/L Anion Gap 8 (4-12) mmol/L BUN 12 (7-17) mg/dL Creatinine 0.61 L (0.7-1.0) mg/dL Estim Creat Clear Calc 80 ml/min Estimated GFR > 60 (59 - ) Glucose 479 H (65-110) mg/dL Lactic Acid 1.0 (0.7-2.0) mmol/L Calcium 9.1 (8.4-10.2) mg/dL Total Bilirubin 0.3 (0.2-1.3) mg/dL AST 22 (14-36) U/L ALT 16 (6-35) U/L Alkaline Phosphatase 97 (38-126) U/L C-Reactive Protein 1.6 H (<1.0) mg/dL Total Protein 7.4 (6.3-8.2) g/dL Albumin 3.9 (3.5-5.1) g/dL Urine Color Yellow (Yellow) Urine Appearance Clear (Clear) Urine pH 6.5 (5.0-9.0) Ur Specific [place] 1.040 H (1.001-1.035) Urine Protein Negative (Negative) mg/dL Urine Glucose (UA) 3+ H (Negative) mg/dL Urine Ketones Negative (Negative) mg/dL Ur Blood (Man) Negative (Negative) Urine Nitrate Negative (Negative) Urine Bilirubin Negative (Negative) Urine Urobilinogen 0.2 (<2.0) mg/dL Leukocyte Esterase Rfl Negative (Negative) AZUCENA/UL <Lena Dempsey MD - Last Filed: 05/13/25 03:39> Imaging Data Radiologist's impression: ITS Impressions Pelvis CT 05/13/25 06:21 IMPRESSION: 1. Inflammatory stranding right labia majora and adjacent peritoneum, most likely infectious/inflammatory. No associated abscess. 2: Nonspecific thickening of the rectum. Cannot exclude infectious/inflammatory process or malignancy. 3: Pelvic relaxation. <Ijeoma Aj PA-C - Last Filed: 05/13/25 14:11> Critical Care Time Critical Care Time Critical Care Time: No <Ijeoma Aj PA-C - Last Filed: 05/13/25 14:11> Discharge Plan Discharge Clinical Impression: Cellulitis of labia Otitis externa Qualifiers: Otitis externa type: unspecified type Chronicity: acute Laterality: left Qualified Code(s): H60.502 - Unspecified acute noninfective otitis externa, left ear <Ijeoma Aj PA-C - Last Filed: 05/13/25 14:11> Patient Disposition: Home <Ijeoma Aj PA-C - Last Filed: 05/13/25 14:11> Condition: Stable <Ijeoma Aj PA-C - Last Filed: 05/13/25 14:11> Instructions: Antibiotic Form, Cellulitis (ED), Swimmer's Ear (ED) <Ijeoma Aj PA-C - Last Filed: 05/13/25 14:11> Additional Instructions: Return to the ER if you experience fever, abdominal pain with nausea and vomiting, you are unable to keep down liquids or solids, increasing redness and swelling of your wound, increasing swelling and redness around your ear, or any other symptoms that are concerning to you Remain well hydrated. Take oral antibiotic as prescribed. Instill antibiotic ear drops as prescribed. Follow up with your primary care doctor <Ijeoma Aj PA-C - Last Filed: 05/13/25 14:11> Patient Language: Kinyarwanda <Ijeoma Aj PA-C - Last Filed: 05/13/25 14:11> Prescriptions: New clindamycin HCl [Cleocin HCl] 300 mg capsule 300 mg PO Q6H 7 Days Qty: 28 0RF ofloxacin 0.3 % drops 10 drp LEFT EAR DAILY 7 Days Qty: 10 0RF No Action duloxetine 60 mg capsule,delayed release(DR/EC) 60 mg PO HS Eliquis 5 mg tablet 5 mg PO DAILY fluticasone propionate [24 Hour Allergy Relief] 50 mcg/actuation spray,suspension 2 spray intranasal DAILY 30 Days Qty: 16 0RF Rx Instructions: administer into each nostril methylprednisolone [Medrol (Jose)] 4 mg tablets,dose pack See Rx Instructions PO .COMPLEX Qty: 21 0RF Rx Instructions: orally per package directions cyclobenzaprine 10 mg tablet 10 mg PO Q8H PRN (Reason: muscle spasm) 7 Days Qty: 21 0RF insulin glargine [Basaglar KwikPen U-100 Insulin] 100 unit/mL (3 mL) insulin pen 25 unit SUBCUT HS pregabalin 150 mg capsule 150 mg PO BID rosuvastatin 40 mg tablet 40 mg PO QHS dapagliflozin propanediol [Farxiga] 10 mg tablet 10 mg PO DAILY pgigodlfyn-jhhopmhbjlkxk-uvtn 50-325-40 mg Tablet 1 tablet PO Q4H PRN (Reason: headache) Qty: 10 0RF lidocaine [Lidoderm] 5 % Adhesive Patch,Medicated 2 patch transdermal DAILY Qty: 30 0RF Rx Instructions: apply to lower back cyclobenzaprine 5 mg tablet 5 mg PO TID PRN (Reason: muscle spasm) Qty: 20 0RF benzonatate 100 mg capsule 100 mg PO BID PRN (Reason: cough) Qty: 20 0RF albuterol sulfate [Ventolin HFA] 90 mcg/actuation HFA aerosol inhaler 1 inh inhalation QID PRN (Reason: shortness of breath or wheezing) Qty: 6.7 0RF Cepacol Sore Throat-Cough 5-7.5 mg lozenge 1 josiah PO Q4H PRN (Reason: cough) Qty: 16 0RF azithromycin 250 mg tablet See Rx Instructions .ROUTE .COMPLEX Qty: 6 0RF Rx Instructions: For 250 mg dose pack: take 500 mg today (day 1), then 250 mg for 4 days (days 2-5) amoxicillin 500 mg tablet 1,000 mg PO Q8H 5 Days Qty: 30 0RF albuterol sulfate 90 mcg/actuation HFA aerosol inhaler 4 puff INHALATION QID PRN (Reason: shortness of breath or wheezing) Qty: 8 0RF <Ijeoma Aj PA-C - Last Filed: 05/13/25 14:11> Follow-up/Referrals: Franklyn Greco DO [Primary Care Provider] - <Ijeoma Aj PA-C - Last Filed: 05/13/25 14:11>
[2025-05-13] MEDS: ACETAMINOPHEN 500 MG TABLET 1000 MG PO (01:20)
[2025-05-13 01:44] LABS: Add Urine Microscopic? NO; Appearance Urine Clear (Clear); Basophils Percent Auto 0.4 % (0.2-1.2); Bilirubin Urine Negative (Negative); Blood Urine Negative (Negative); Color Urine Yellow (Yellow); Eosinophils Absolute Auto 0.2 K/mm3 (0-0.3); Eosinophils Percent Auto 3.1 % (0-4.4); Glucose Urine UA 3+ mg/dL (Negative); Hematocrit 43.8 % (37.0-47.0); Hemoglobin 14.3 g/dL (12.0-15.0); Immature Granulocyte Absolute 0.02 K/mm3 (0.00-0.031); Immature Granulocyte Percent A 0.4 % (0-0.5); Ketones Urine Negative (Negative); Leukocyte Esterase Ur Negative LEU/UL (Negative); Lymphocytes Absolute Auto 1.59 K/mm3 (0.9-3.2); Mean Corpuscular HGB Conc 32.6 g/dl (32-36); Mean Corpuscular Hemoglobin 28.9 pg (26-34); Mean Corpuscular Volume 88.5 fl (80-100); Mean Platelet Volume 10.6 fl (7.4-10.4); Monocytes Absolute Auto 0.5 K/mm3 (0.1-0.6); Monocytes Percent Auto 8.2 % (2.6-8.5); Neutrophils Absolute Auto 3.2 K/mm3 (1.3-6.7); Neutrophils Percent Auto 58.9 % (45.5-73.1); Nitrate Urine Negative (Negative); Platelet Count Result 216 k/mm3 (150-375); Protein Urine Negative (Negative); Red Blood Count 4.95 M/mm3 (4.2-5.4); Red Cell Distribution Width 12.4 % (11.5-14.5); Urobilinogen Urine 0.2 mg/dL (<2.0); White Blood Count 5.5 K/mm3 (4.5-10.0); pH Urine 6.5 (5.0-9.0)
[2025-05-13 01:45] VITALS: BP 131/55; PULSE 74; RESP 15; O2SAT 98
[2025-05-13 01:56] LABS: Alanine Aminotransferase 16 U/L (6-35); Albumin Level 3.9 g/dL (3.5-5.1); Alkaline Phosphatase 97 U/L (38-126); Anion Gap 8 mmol/L (4-12); Aspartate Amino Transferase 22 U/L (14-36); Bilirubin,Total 0.3 mg/dL (0.2-1.3); Blood Urea Nitrogen 12 mg/dL (7-17); Calcium 9.1 mg/dL (8.4-10.2); Carbon Dioxide 28 mmol/L (22-30); Chloride 100 mmol/L (98-107); Estimated CRCL calculation 80 ml/min; Estimated Glomerular Filt Rate > 60; Glucose 479 mg/dL (65-110); Potassium 3.6 mmol/L (3.4-5.0); Sodium 136 mmol/L (137-145); Total Protein 7.4 g/dL (6.3-8.2)
[2025-05-13 02:07] LABS: Erythrocyte Sedimentation Rate 30 mm/hr (0-20)
[2025-05-13] MEDS: SODIUM CHLORIDE 0.9% IV 1,000 ML 999 ML IV CONT (02:31)
[2025-05-13] MEDS: diphenhydrAMINE HCl INJ 50 MG/ML VIAL 25 MG IV PUSH (03:05)
[2025-05-13] MEDS: METOCLOPRAMIDE HCL INJ 10 MG/2 ML VIAL IV PUSH (03:05)
[2025-05-13] MEDS: CLINDAMYCIN 900 MG/D5W 50 ML 900 MG/50 ML PIGGYBACK 50 MG IVPB (03:38)
[2025-05-13 04:00] VITALS: BP 130/66; PULSE 60; RESP 15; O2SAT 94
[2025-05-13 04:40] VITALS: BP 104/62; PULSE 62; RESP 14; O2SAT 93
[2025-05-13 05:58] LABS: CRP 1.6 mg/dL (<1.0)
== END 2025-05-13 04:41 | disposition home or self-care (01) ==
PROVIDERS: Physician Assistant; Emergency Provider Emergency Medicine; PCP Emergency Medicine
DX: H60.502 Unspecified acute noninfective otitis externa, left ear (principal); N76.2 Acute vulvitis; E11.43 Type 2 diabetes mellitus with diabetic autonomic (poly)neuropathy; K31.84 Gastroparesis; E11.40 Type 2 diabetes mellitus with diabetic neuropathy, unspecified; E78.5 Hyperlipidemia, unspecified; J45.909 Unspecified asthma, uncomplicated; Z86.16 Personal history of COVID-19; Z87.01 Personal history of pneumonia (recurrent); Z86.718 Personal history of other venous thrombosis and embolism; Z86.0101 Personal history of adenomatous and serrated colon polyps; Z79.01 Long term (current) use of anticoagulants; Z79.4 Long term (current) use of insulin; Z79.899 Other long term (current) drug therapy
CPT/HCPCS: 36415; 72193; 80053; 81003; 83605; 85025; 85652; 86140; 87070; 87075; 87205; 96361; 96365; 96375; 99284; A9270; J1200; J2765; J7030; Q9967

== ENCOUNTER 2025-08-01 16:11 | Emergency (ER) | payer OTHER, SELFPAY ==
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
[2025-08-01 16:12] VITALS: BP 163/74; PULSE 86; RESP 16; TEMP 36.8; O2SAT 96
--- OUTSIDE RECORDS SUMMARY | 2025-08-01 16:14 | XMS_ITS | Clinical Summary ---
Author Organization [facility] Address [address] [place] [address] Care Team Providers Care Crude Oil Driver Name Role Phone Valente Musa Boucher APRN-REHABILITATION ENGINEER Primary Care Provider Source Comments [facility],non-owned Affiliates and Associated Physician Practices is amultiple site organization consisting of ambulatory clinics and hospital sitesin [place], [place], [place] and [place]. This disclosure is being madepursuant to the Care Everywhere program and may not contain all information available regarding this patient. Last updated 18.[facility] Allergies No known active allergies Medications * [...] season) 2024 DEPRESSION SCREENING 11/30/2024 INFLUENZA VACCINE (#1) 2025 9, 08/19/2018, 09/15/2017, Additional history exists HIB VACCINE [...] patient's age to complete this topic Insurance [facility] Care Teams Crude Oil Driver Relationship Specialty Start Date End Date Musa Victor, INSTRUMENT MAN-REHABILITATION ENGINEER [address] [place] [address] PCP - General 06/07/20
--- OUTSIDE RECORDS SUMMARY | 2025-08-01 16:14 | XMS_ITS | Encounter Summary ---
Author Organization [facility] Care Team Providers Care Program Advisor Name Role Phone Unknown, Notinfile Primary Care Provider Unavail able Encounter Details Date Type Department Care Team (Latest Contact Info) Description 09/17/2015 Orders Only [facility] CLINCONV Provider, MD Natasha [address] [place] [id number] Social History Tobacco Use Types Packs/Day Years Used Date Smoking Tobacco: Never Assessed Comments Unknown Sex and Gender Information Value Date Recorded Sex Assigned at Not on file Legal Sex Female 8:03 AM GROCERY PACKER Gender Identity Not on file Sexual Orientation [...] documented as of this encounter Care Teams Program Advisor Relationship Specialty Start Date End Date Unknown, Notinfile PCP - General 01/03/19 documented as of this encounter
--- OUTSIDE RECORDS SUMMARY | 2025-08-01 16:14 | XMS_ITS | Clinical Summary ---
Author Organization [facility] Address [address] [facility] [address] [place] [address] Phone Care Team Providers Care Ground Crew Supervisor Name Role Phone Mike Victor PAC Primary Care Provider [phone]- [phone] Allergies No known active allergies Medications Bismuth [...] of 3 - 19+ 3-dose series) 1991 Pap Smear 1993 Cervical Cancer Screening (CCS) 2002 HPV/Cotest 2002 Cologuard 2017 Immunochemical Fecal Occult Blood 2017 Pneumococcal Immunization (5 0+ years) (1 of 1 - PCV) 2022 Zoster Immunization (1 of 2) 2022 Colonoscopy 04/14/2024 04/14/2019 Colorectal Cancer Screening 04/14/2024 Influenza Immunization (#1) 07/31/202508/31, 09/15/2017, 08/21/2016 SARS-COV-2 Immunization (2024- season) 2025 12/12/2021, 11/14/2021 Respiratory Syncytial Virus (RSV) Immunization [...] Health Maintenance Insurance MEDICAID [employer] Care Teams Ground Crew Supervisor Relationship Specialty Start Date End Date Mike Victor, PAC [address] [place] [address] PCP - General Physician Lead Miner 03/25/19
--- OUTSIDE RECORDS SUMMARY | 2025-08-01 16:14 | XMS_ITS | Clinical Summary ---
Author Organization [facility] Address [address] [place] [id number] Care Team Providers Care Brass Reclaimer Name Role Phone Unknown, Notinfile Primary Care [...] on file Legal Sex Female 8:03 AM MOTION DESIGNER Gender Identity Not on file Sexual Orientation [...] Pneumococcal vaccine <65 (2 of 2 - PPSV23, PCV20, or PCV21) 07/17/2022 05/22/2022 Covid-19 Vaccine (4 - 2023-2 5 season) 2024 07/30/2022, 12/12/2021, 11/14/2021 Influenza Vaccine (#1) 2025 , 09/18/2020, 09/20/2019, Additional history exists DTaP/Tdap/Td Vaccine (2 - Td or Tdap) 05/22/2032 05/22/2022 Hepatitis C Screening Completed 10/31/2013 Procedures Procedure Name Priority Date/Time Associated Diagnosis Comments THINPREP PAP Routine 01/03/2015 1:45 AM MOTION DESIGNER HEPATITIS PANEL, ACUTE Routine 10/31/2013 3:34 PM MOTION DESIGNER from Last 3 Months or Most Recently Relevant to Health Maintenance Results * ThinPrep Pap (01/03/2015 1:45 AM MOTION DESIGNER) Thin Prep Pap Smear SEE BELOW () 01/13 8:49 AM MOTION DESIGNER [facility] HISTORICAL RESULTS Comment: Senior Consultant ThinPrep Cytology Final Report ThinPrep Pap Specimen Source Cervix/Endocervix Specimen Adequacy Satisfactory for interpretation, endocervical cells (transformation zone) present. Interpretation Negative for intraepithelial lesion or malignancy. 01/13/15 Tacking Stitch Remover: RIVKA Benites(ASCP) 01/13/15 Verified By: RIVKA Benites(ASCP) electronic signature [facility], Department of Pathology For questions regarding this case, call ext. [phone] CPT Code(s) 62144 Clinical History LMP: [id number] : N : N IUD: N Hormone Therapy: N Postmenopausal: N Previous surgery date and type: N Hysterectomy: N Chemotherapy: N FARIDA Exposure: N Radiation: N Previous Abnormal Pap? Details: N Diagnostic or Screening Pap Test: Screening Performed by [facility], [address] [place] [id number] [email or web address], Blaze Weems MD - Lab. Director 01/03/2015 1:45 AM MOTION DESIGNER 01/03/2015 3:49 PM MOTION DESIGNER Luis Saenz MD LAB PATHOLOGY ORDERABLE S Final Result [facility] HISTORICAL RESULTS * Hepatitis panel, acute (10/31/2013 3:34 PM MOTION DESIGNER) HepBsAg NONREACT NONREACTIVE Comment: Siemens CentaurXP using AMEYA (chemiluminescent immunoassay) technology. NONREACTIVE: IgM antibodies to Hepatitis B Surface antigen not detected. REACTIVE: IgM antibodies to Hepatitis B Surface antigen detected. Reactive results will be confirmed by neutralization testing. HBsAb (immune status) NONREACT NONREACTIVE Comment: Siemens TIKI.VNaurXP using AMEYA (chemiluminescent immunoassay) technology. NONREACTIVE: IgM antibodies to Hepatitis B Surface antibody not detected. REACTIVE: IgM antibodies to Hepatitis B Surface antibody detected. Hep B core IgM NONREACT NONREACTIVE 3 6:40 PM MOTION DESIGNER [facility] HISTORICAL RESULTS Comment: Siemens CentaurXP using AMEYA (chemiluminescent immunoassay) technology. NONREACTIVE: IgM antibodies to Hepatitis B Core antigen not detected. EQUIVOCAL: IgM antibodies to Hepatitis B Core antigen may or may not be present. Obtain a new specimen and retest. REACTIVE: IgM antibodies to Hepatitis B Core antigen detected. Hep A IgM NONREACT NONREACTIVE Comment: Siemens CentaurXP using AMEYA (chemiluminescent immunoassay) technology. NONREACTIVE: IgM antibodies to Hepatitis A not detected. This does not exclude possibility of exposure to Hepatitis A or early acute infection. EQUIVOCAL:IgM antibodies to Hepatitis A may or may not be present. Suggest recollection and retest. REACTIVE: Antibodies to Hepatitis A detected. Hep C Ab NONREACT NONREACTIVE Comment: Siemens CentaurXP using AMEYA (chemiluminescent immunoassay) [...] to Hepatitis C detected. 10/31/2013 3:34 PM MOTION DESIGNER 10/31/2013 4:49 PM MOTION DESIGNER Luis Saenz MD LAB MICROBIOLOGY - [facility] ORDERABLES Final Result [facility] HISTORICAL RESULTS from Last 3 Months or Most Recently Relevant to Health Maintenance Insurance [facility] Care Teams Brass Reclaimer Relationship Specialty Start Date End Date Unknown, Notinfile PCP - General 01/03/19
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
[2025-08-01] MEDS: LIDOCAINE 5% PATCH 1 PATCH TRANSDERM (21:16)
[2025-08-01] MEDS: KETOROLAC 30 MG/ML VIAL (*BKC) IM (21:16)
[2025-08-01] MEDS: CYCLOBENZAPRINE HCL 10 MG TABLET PO (21:16)
--- OUTSIDE RECORDS SUMMARY | 2025-08-01 21:22 | XMS_ITS | Clinical Summary ---
Author Organization [facility] Address [address] [place] [id number] Care Team Providers Care Play Leader Name Role Phone Unknown, Notinfile Primary Care [...] on file Legal Sex Female 8:03 AM AUDIO EXPERIENCE EXPERT Gender Identity Not on file Sexual Orientation [...] Comments THINPREP PAP Routine 01/03/2015 1:45 AM AUDIO EXPERIENCE EXPERT HEPATITIS PANEL, ACUTE Routine 10/31/2013 3:34 PM AUDIO EXPERIENCE EXPERT from Last 3 Months or Most Recently Relevant to Health Maintenance Results * ThinPrep Pap (01/03/2015 1:45 AM AUDIO EXPERIENCE EXPERT) Thin Prep Pap Smear SEE BELOW () 01/13 8:49 [address]UDIO EXPERIENCE EXPERT [facility] HISTORICAL RESULTS Comment: Marketing Director Assisted Living ThinPrep Cytology Final Report ThinPrep Pap Specimen Source Cervix/Endocervix Specimen Adequacy Satisfactory for interpretation, endocervical cells (transformation zone) present. Interpretation Negative for intraepithelial lesion or malignancy. 01/13/15 3Rd Pressman: RIVKA Benites(ASCP) 01/13/15 Verified By: RIVKA Benites(ASCP) electronic signature [facility], Department of Pathology For questions regarding this case, call ext. [phone] CPT Code(s) 98930 Clinical History LMP: [id number] : N : N IUD: N Hormone Therapy: N Postmenopausal: N Previous surgery date and type: N Hysterectomy: N Chemotherapy: N FARIDA Exposure: N Radiation: N Previous Abnormal Pap? Details: N Diagnostic or Screening Pap Test: Screening Performed by [email or web address], [address] [place] [id number] [email or web address], Blaze Weems MD - Lab. Director 01/03/2015 1:45 AM AUDIO EXPERIENCE EXPERT 01/03/2015 3:49 PM AUDIO EXPERIENCE EXPERT Luis Saenz MD LAB PATHOLOGY ORDERABLE S Final Result [facility] HISTORICAL RESULTS * Hepatitis panel, acute (10/31/2013 3:34 PM AUDIO EXPERIENCE EXPERT) HepBsAg NONREACT NONREACTIVE 10/31/2013 5:55 [address] AUDIO EXPERIENCE EXPERT [facility] HISTORICAL RESULTS Comment: Siemens CentaurXP using AMEYA (chemiluminescent immunoassay) technology. NONREACTIVE: IgM antibodies to Hepatitis B Surface antigen not detected. REACTIVE: IgM antibodies to Hepatitis B Surface antigen detected. Reactive results will be confirmed by neutralization testing. HBsAb (immune status) NONREACT NONREACTIVE 10/31/2013 5:46 PM AUDIO EXPERIENCE EXPERT [facility] HISTORICAL RESULTS Comment: Siemens AnergisaurXP using AMEYA (chemiluminescent immunoassay) technology. NONREACTIVE: IgM antibodies to Hepatitis B Surface antibody not detected. REACTIVE: IgM antibodies to Hepatitis B Surface antibody detected. Hep B core IgM NONREACT NONREACTIVE 3 6:40 PM AUDIO EXPERIENCE EXPERT [facility] HISTORICAL RESULTS Comment: Siemens CentaurXP using AMEYA (chemiluminescent immunoassay) technology. NONREACTIVE: IgM antibodies to Hepatitis B Core antigen not detected. EQUIVOCAL: IgM antibodies to Hepatitis B Core antigen may or may not be present. Obtain a new specimen and retest. REACTIVE: IgM antibodies to Hepatitis B Core antigen detected. Hep A IgM NONREACT NONREACTIVE 10/31/2013 6:40 [address] A[address]IO EXPERIENCE EXPERT [facility] HISTORICAL RESULTS Comment: Siemens CentaurXP using AMEYA (chemiluminescent immunoassay) technology. NONREACTIVE: IgM antibodies to Hepatitis A not detected. This does not exclude possibility of exposure to Hepatitis A or early acute infection. EQUIVOCAL:IgM antibodies to Hepatitis A may or may not be present. Suggest recollection and retest. REACTIVE: Antibodies to Hepatitis A detected. Hep C Ab NONREACT NONREACTIVE 10/31/2013 6:40 PM AUDIO EXPERIENCE EXPERT [facility] HISTORICAL RESULTS Comment: Siemens CentaurXP [...] to Hepatitis C detected. 10/31/2013 3:34 PM AUDIO EXPERIENCE EXPERT 10/31/2013 4:49 PM AUDIO EXPERIENCE EXPERT Luis Saenz MD LAB MICROBIOLOGY - [facility] ORDERABLES Final Result [facility] HISTORICAL RESULTS from Last 3 Months or Most Recently Relevant to Health Maintenance Insurance [facility] Care Teams Play Leader Relationship Specialty Start Date End Date Unknown, Notinfile PCP - General 01/03/19
--- OUTSIDE RECORDS SUMMARY | 2025-08-01 21:22 | XMS_ITS | Clinical Summary ---
Author Organization [facility] Address [address] [place] [address] Phone Care Team Providers Care Hard Rock Miner Blasting Name Role Phone Mike Victor PAC Primary Care Provider [phone] Allergies No known active allergies Medications Bismuth [...] Insurance MEDICAID [employer] Care Teams [employer] Miner Blasting Relationship Specialty Start Date End Date Mike Victor, PAC [address] [place] [address] PCP - General Physician Case Fitter 03/25/19
--- OUTSIDE RECORDS SUMMARY | 2025-08-01 21:22 | XMS_ITS | Encounter Summary ---
Author Organization [facility] Care Team Providers Care Office Electrician Name Role Phone Unknown, Notinfile Primary Care Provider Unavail able Encounter Details Date Type Department Care Team (Latest Contact Info) Description 09/17/2015 Orders Only [facility] CLINCONV Provider, MD Natasha [address] [place] [id number] Social History Tobacco Use Types Packs/Day Years Used Date Smoking Tobacco: Never Assessed Comments Unknown Sex and Gender Information Value Date Recorded Sex Assigned at Not on file Legal Sex Female 8:03 AM HOSPICE NURSE PRACTITIONER Gender Identity Not on file Sexual Orientation [...] documented as of this encounter Care Teams Office Electrician Relationship Specialty Start Date End Date Unknown, Notinfile PCP - General 01/03/19 documented as of this encounter
--- OUTSIDE RECORDS SUMMARY | 2025-08-01 21:22 | XMS_ITS | Clinical Summary ---
Author Organization [facility] [employer] Address [address] [facility] [place] [address] Care Team Providers Care Net Application Support Specialist Name Role Phone Valente Musa Boucher APRN-SMALL APPLIANCE ASSEMBLY SUPERVISOR Primary Care Provider Source Comments [facility] [employer],non-owned Affiliates and Associated Physician Practices is amultiple site organization consisting of ambulatory clinics and hospital sitesin [place], [place], [place] and [place]. This disclosure is being madepursuant to the Care Everywhere program and may not contain all information available regarding this patient. Last updated 18.[facility] [employer] Allergies No known active allergies Medications * [...] patient's age to complete this topic Insurance [facility] Care Teams Net Application Support Specialist Relationship Specialty Start Date End Date Musa Victor, CERTIFIED NURSE OPERATING ROOM-SMALL APPLIANCE ASSEMBLY SUPERVISOR [address] [place] [address] PCP - General 06/07/20
== END 2025-08-01 21:37 | disposition home or self-care (01) ==
LOC: ANHED 21:20
PROVIDERS: Emergency Provider Student in an Organized Health Care Education/Training Program; PCP Emergency Medicine
DX: M62.838 Other muscle spasm (principal); V87.7XXA Person injured in collision between other specified motor vehicles (traffic), initial encounter; I10 Essential (primary) hypertension; Z86.718 Personal history of other venous thrombosis and embolism; Z79.01 Long term (current) use of anticoagulants; Z79.4 Long term (current) use of insulin; E78.5 Hyperlipidemia, unspecified; E11.40 Type 2 diabetes mellitus with diabetic neuropathy, unspecified; J45.909 Unspecified asthma, uncomplicated
CPT/HCPCS: 70450; 71250; 72125; 72128; 72131; 96372; 99284; A9270; J1885